=== PATIENT | female | born 1985 | race Caucasian/White ===

== ENCOUNTER 2022-02-19 21:21 | Emergency (ER) | payer OTHER, SELFPAY ==
[2022-02-19 21:22] VITALS: BP 138/77; PULSE 78; RESP 16; TEMP 36.1; O2SAT 98; BMI 28.3
--- NOTE | 2022-02-19 22:37 | EX.ED.DYSGE1 ---
HPI History of Present Illness Chief Complaint: Headache Informant: patient Narrative Narrative: Presents with exacerbation of migraine. She has migraines every single day of her life. She has extensive evaluations for these. She has a neurologist she sees regularly. They have exacerbated since she had an injection for her cervical root about a month ago. She states getting rid of that pain has freed up all the other pains in her neck and head that she now notices more. Patient is on multiple meds at home. She takes Reglan. She just got off 4 days of Toradol. She has Ajovy injections. She is also on Humira. She is on Cymbalta. She is also on baclofen. She states this is her typical migraine. She had her typical visual aura. She describes it as tension across her forehead and then goes down her neck. No neurologic symptoms such as weakness numbness or tingling. No fevers. No trauma. [facility] Medical History (Updated 02/20/22 @ 01:[address] Carlton De Jesus MD) Arthritis Degenerative disc disease Migraine Allergy/AdvReac Type Severity Reaction Status Date / Time fentanyl Allergy Itching Verified 02/19/22 21:24 hydromorphone [From Dilaudid] Allergy Itching Verified 02/19/22 21:24 Sulfa (Sulfonamide Allergy Rash Verified 02/19/22 21:24 Antibiotics) Social History Smoking Status: Never smoker ROS ROS ED Constitutional Constitutional ED: Denies chills or fever(s) Eyes Eyes: Reports other Details: She has had visual changes consistent with her aura. ; Denies blurry vision or diplopia ENT ENT ED: Denies rhinorrhea Cardiovascular Cardiovascular: Denies chest pain Respiratory/Chest Respiratory/Chest: Denies cough or dyspnea Gastrointestinal Gastrointestinal: Reports nausea; Denies abdominal pain, diarrhea or vomiting Genitourinary Genitourinary ED: Denies dysuria Musculoskeletal Musculoskeletal: Reports neck pain; Denies myalgias Integumentary Denies rash Neurologic Neurologic: Reports headache(s); Denies paresthesias or weakness Endocrine Endocrinology: Denies polydipsia or polyuria Allergic/Immunologic Allergic/Immunologic ED: Denies urticaria EXAM Physical Exam Const Vital Signs: 02/19/22 21:22 02/20/22 01:08 Temperature 97 F L Temperature Source Temporal Pulse Rate 78 74 Respiratory Rate 16 17 Blood Pressure 138/77 H 122/74 H Blood Pressure Mean 97 Pulse Ox 98 98 Oxygen Delivery Method Room Air Positive well nourished and well developed General Appearance ED: well developed and NAD HEENT Reports moist mucous membranes Eyes Eyes Narrative: She does have some mild photophobia. Pupils are reactive from about 4 down to 2 mm. General Eye ED: Negative for pale conjunctiva or scleral icterus Neck No no JVD Chest Wall inspection of chest normal Resp normal respiratory effort and clear to auscultation bilaterally Cardio regular rate and regular rhythm GI normal to inspection, nondistended, normoactive bowel sounds and non-tender Palpation: soft Back/Spine no CVA tenderness Neuro CN's II-XII intact bilaterally and no sensory deficits noted Sensorium / Orientation: alert; Negative for orientation impaired, lethargic or stuporous Motor Exam: strength 5/5 throughout; Negative for strength abnormal Psych mental status grossly normal Skin no rashes or lesions noted and no wounds Skin Narrative: No vesicles MDM MDM MDM Narrative Medical decision making narrative: Patient is feeling better after therapy. Hopefully Decadron will help break this cycle for her. She will follow up with her physicians. Discharge Plan Triage Chief Complaint: Headache ED Provider: Carlton De Jesus Dx/Rx/DC Orders Clinical Impression: Headache, migraine Instructions: ED, Migraine (Classical) Primary Care Provider: David Kilgore Referrals: David Kilgore DO [Primary Care Provider] - As soon as possible Disposition Disposition: Home, Self Care Discharge Date/Time: 02/20/22 01:08
[2022-02-19] MEDS: Metoclopramide 10 MG/2 ML Vial IV (22:48)
[2022-02-19] MEDS: 0.9% Normal Saline 1,000 ML 999 ML IV (22:48)
[2022-02-19] MEDS: DiphenhydrAMINE 50 MG/ML Syringe IV (22:48)
[2022-02-19] MEDS: dexAMETHasone 10 MG/ML Vial IV (22:58)
[2022-02-20 01:08] VITALS: BP 122/74; PULSE 74; RESP 17; O2SAT 98
== END 2022-02-20 01:08 | disposition home or self-care (01) ==
PROVIDERS: Emergency Provider Emergency Medicine; PCP Student in an Organized Health Care Education/Training Program; Visit Provider Emergency Medicine
DX: G43.909 Migraine, unspecified, not intractable, without status migrainosus (principal)
CPT/HCPCS: 96361; 96374; 96375; 99283; J7030

== ENCOUNTER 2022-05-18 21:05 | Emergency (ER) | payer OTHER, SELFPAY ==
[2022-05-18 21:05] VITALS: BP 116/56; PULSE 92; RESP 16; TEMP 36.6; O2SAT 98; BMI 29.6
--- NOTE | 2022-05-18 21:15 | EDS_ITS ---
HPI History of Present Illness Chief Complaint: Headache Detail of Chief Complaint: History of migraine headaches. Typical for one of her headaches. 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 Has a history of migraine headaches. States he gets headaches almost daily. This when she has had for the last 4 days. Her home treatment is not making it better. She denies any fall injury or trauma. She is on no blood thinners. She denies any sinus congestion or drainage. She denies any fever. She has associated nausea. When she gets her migraines they have a preceding aura and she gets wavy lines on her vision. She said this is very similar to her prior migraines. She has had brain imaging in the past. There is no history of brain aneurysms or family history of aneurysms nor intracranial bleeds. Prior similar symptoms: Yes Recent Illness/Hospitalization: No PFSH PFSH Medical History Arthritis Degenerative disc disease Migraine Allergy/AdvReac Type Severity Reaction Status Date / Time fentanyl Allergy Itching Verified 02/19/22 21:24 hydromorphone [From Dilaudid] Allergy Itching Verified 02/19/22 21:24 Sulfa (Sulfonamide Allergy Rash Verified 02/19/22 21:24 Antibiotics) Social History Smoking Status: Never smoker ROS ROS ED ROS Narrative Headache, nausea and aura. Review of Systems ROS Unobtainable: Denies due to encephalopathy Constitutional Constitutional ED: Denies chills or fever(s) Eyes Eyes: Reports change in vision ENT ENT ED: Denies ear pain Cardiovascular Cardiovascular: Denies chest pain Respiratory/Chest Respiratory/Chest: Denies cough Gastrointestinal Gastrointestinal: Reports nausea; Denies abdominal pain, constipation or vomiting Genitourinary Genitourinary ED: Denies dysuria or hematuria Musculoskeletal Musculoskeletal: Denies arthralgias Integumentary Denies abscess Neurologic Neurologic: Reports headache(s) Psychiatric Psychiatric: Denies anxiety Endocrine Endocrinology: Denies polydipsia Hematologic/Lymphatic Hematologic/Lymphatic: Denies easy bleeding Allergic/Immunologic Allergic/Immunologic ED: Denies mouth swelling EXAM Physical Exam Narrative Exam Narrative: 36-year-old female. Vital signs stable afebrile. No distress. No photophobia. H EENT exam unremarkable. Pupils round reactive light. Extra motions are intact. Normal speech. No facial droop. No signs of trauma. Neck nontender. No lymphadenopathy. No meningismus. Able to flex chin to chest. Lungs are clear. Heart regular rhythm. Rate of 90. No murmur. Abdomen soft nontender. Moving all 4 extremities. 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 Dorsi plantarflexion intact. Neurologic exam normal. NIH is 0. Fingertip to nose and [id number] within normal limits. Patient has a normal exam. Const Vital Signs: 05/18/22 21:05 Temperature 97.8 F Temperature Source Temporal Pulse Rate 92 Respiratory Rate 16 Blood Pressure 116/56 L Blood Pressure Mean 76 Pulse Ox 98 Oxygen Delivery Method Room Air Positive well nourished and well developed; Negative for cachectic, contractures or unkempt General Appearance ED: well developed; Negative for unkempt, cachectic, contractures or pallor Nutritional Appearance: Negative for cachectic HEENT Reports normocephalic and moist mucous membranes; Denies dry mucous membranes atraumatic; Negative for trauma, tenderness, temporal artery tenderness or vesicular rash Face and Sinus: Negative for sinus tenderness Mouth ED: No dry mucous membranes Mouth: No dry mucous membranes Eyes PERRL and EOMs intact bilaterally General Eye ED: Negative for pale conjunctiva or scleral icterus Neck no lymphadenopathy, supple, no meningeal signs and no JVD Resp normal respiratory effort and clear to auscultation bilaterally Effort and Inspection: Negative for retractions Auscultation: Negative for rales, rhonchi, wheezes or diminished lung sounds Cardio regular rate, regular rhythm, S1 normal heart sound and S2 normal heart sound Rate: Negative for bradycardia or tachycardic Rhythm: Negative for abnormal rhythm GI non-tender and non-distended Auscultation: normoactive bowel sounds; Negative for hyperactive bowel sounds or hypoactive bowel sounds Palpation: soft; Negative for firm, tender, guarding or rigid Back/Spine no CVA tenderness Extremity normal to inspection and full ROM General Extremety ED: Negative for edema or tenderness General Extremity: Negative for edema Neuro oriented x3 and CN's II-XII intact bilaterally Sensorium / Orientation: awake, alert, oriented to person, oriented to place and oriented to time; Negative for orientation impaired, lethargic or stuporous Coordination / Balance: [id number] test normal and [id number] test normal Speech: speech normal Motor Exam: strength 5/5 throughout; Negative for general weakness or strength abnormal Psych mental status grossly normal Appearance: Negative for unkempt Attitude: No agitated Mood & Affect: Negative for depressed, anxious or tearful Skin General Skin Exam: Negative for jaundice or pallor Lesions: no lesions Rashes: no rashes Trauma: Negative for abrasion MDM MDM MDM Narrative Medical decision making narrative: 36-year-old female history of migraines. Similar headache. Not improving at home. No fever. No signs of meningitis. No history of intracranial bleeds or aneurysms nor family history. And has had prior imaging. She will be treated with IV fluids, Toradol, Benadryl, Compazine and Decadron and reassess. Patient's history and exam are consistent with acute migraine headache with a normal neurologic exam. I do not feel any testing or imaging is necessary. Repeat exam patient is doing well at 9:39 PM. Her symptoms are starting to resolve. Her neurologic exam remains normal. She is comfortable to be discharged to home she just wants to go home and sleep. She has her normal migraine medications at home and needs no additional prescriptions. Discharge Plan Triage Chief Complaint: Headache ED Provider: Jd Ladd Dx/Rx/DC Orders Clinical Impression: Headache, migraine Instructions: ED, Migraine (Classical) Primary Care Provider: David Kilgore Referrals: David Kilgore, DO [Primary Care Provider] - 1-2 Days if not improving Activity Restrictions/Additional Instructions: Plenty of fluids and rest. Motrin and Tylenol for pain. Return if not improving or feeling worse. Follow-up with your doctor as needed. Disposition Disposition: Home, Self Care
[2022-05-18] MEDS: dexAMETHasone 10 MG/ML Vial 6 MG IV (21:29)
[2022-05-18] MEDS: Ketorolac 30 MG/ML Syringe IV (21:29)
[2022-05-18] MEDS: proCHLORPERazine 10 MG/2 ML Vial IV (21:29)
[2022-05-18] MEDS: 0.9% Normal Saline 1,000 ML 1000 ML IV (21:29)
[2022-05-18] MEDS: DiphenhydrAMINE 50 MG/ML Syringe 25 MG IV (21:29)
== END 2022-05-18 22:07 | disposition home or self-care (01) ==
PROVIDERS: Emergency Provider Emergency Medicine; PCP Student in an Organized Health Care Education/Training Program; Visit Provider Emergency Medicine
DX: G43.909 Migraine, unspecified, not intractable, without status migrainosus (principal)
CPT/HCPCS: 96361; 96374; 96375; 99282

== ENCOUNTER 2025-09-17 17:26 | Emergency (ER) | payer OTHER, SELFPAY ==
[2025-09-17 17:27] VITALS: BP 122/61; PULSE 108; RESP 16; TEMP 36.8; O2SAT 100; BMI 24.3
--- OUTSIDE RECORDS SUMMARY | 2025-09-17 18:33 | XMS RPT_ITS | CCD ---
Author Organization [facility] Inform ion Partnership [facility] Care Team Providers Care Nurse'S Aides Teacher Name Role Phone David Kilgore DO Primary Care Provider Oscar MACK, [place] Unavailable UnavailLeann Smith MD Unavailable EMRE DE LEON Attending Unavailable EMRE DE LEON Admitting Unavailable DAVID KILGORE Primary Care Unavailable David Kilgore DO Primary Care Provider Oscar MACK, [place] Unavailable UnavailLeann Smith MD Unavailable Oscar MACK, [place] Unavailable UnavailLeann Smith MD Unavailable David Kilgore DO Primary Care Provider Panda BEAUTY CULTURIST.Regine MCGEE Unavailable Jose BEAUTY CULTURIST.Mar MCGEE Unavailable Panda BEAUTY CULTURIST.Regine MCGEE Unavailable JACOBO CHENG Attending Unavailable JACOBO CHENG Admitting Unavailable DAVID KILGORE Primary Care Unavailable Evelin BEAUTY CULTURIST.Maria Isabel MCGEE Unavailable PORTILLO MCCALLUM Attending Unavailable JANIYA ZIEGLER Referring Unavailable DAVID KILGORE Primary Care Unavailable ADELE GIBSON Attending Unavailable DAVID KILGORE Primary Care Unavailable DAVID KILGORE Primary Care Unavailable ADELE GIBSON Attending Unavailable DAVID KILGORE Primary Care Unavailable SUNIL OWEN Attending Unavailable SUNIL OWEN Referring Unavailable DAVID KILGORE Referring Unavailable DAVID KILGORE Primary Care Unavailable AJIT TORRE Attending Unavailable KILGORE, DAVID L Primary Care Unavailable JACOBO CHENG Attending Unavailable KILGORE, DAVID L Primary Care Unavailable DIAN SIERRA L Referring Unavailable KILGORE, DAVID L Primary Care Unavailable SHIN, BEATRIZ Attending Unavailable SHANNON SIERRAEN L Referring Unavailable KILGORE, DAVID L Primary Care Unavailable SHIN, BEATRIZ Attending Unavailable SUNIL OWEN P Attending Unavailable OWEN, SUNIL P Referring Unavailable KILGORE, DAVID L Primary Care Unavailable TORRE, NEOILEY Referring Unavailable KILGORE, DAVID L Primary Care Unavailable TRUNG SALAZAR Attending Unavailable KILGORE, DAVID L Primary Care Unavailable SHINBEATRIZ Attending Unavailable SHIN, BEATRIZ Referring Unavailable KILGORE, DAVID L Primary Care Unavailable TORRE, NEOILEY Referring Unavailable KILGORE, DAVID L Primary Care Unavailable TORRE, SHAILEY Referring Unavailable KILGORE, DAVID L Primary Care Unavailable TORRE, NEOILEY Attending Unavailable KILGORE, DAVID L Primary Care Unavailable KILGORE, DAVID L Primary Care Unavailable KILGORE, DAVID L Primary Care Unavailable KILGORE, DAVID L Referring Unavailable KILGORE, DAVID L Primary Care Unavailable TORRE, NEOILEY Referring Unavailable KILGORE, DAVID L Primary Care Unavailable TORRE, NEOILEY Attending Unavailable KILGORE, DAVID L Primary Care Unavailable KILGORE, DAVID L Primary Care Unavailable SUNIL OWEN P Attending Unavailable KILGORE, DAVID L Referring Unavailable KILGORE, DAVID L Primary Care Unavailable GIBSON, ADELE M Referring Unavailable SHIN, BEATRIZ Attending Unavailable KILGORE, DAVID L Primary Care Unavailable GIBSON, ADELE M Referring Unavailable SHIN, BEATRIZ Attending Unavailable KILGORE, DAVID L Primary Care Unavailable GIBSON, ADELE M Referring Unavailable SHIN, BEATRIZ Attending Unavailable KILGORE, DAVID L Primary Care Unavailable GIBSON, ADELE M Referring Unavailable SHIN, BEATRIZ Attending Unavailable KILGORE, DAVID L Primary Care Unavailable KILGORE, DAVID L Primary Care Unavailable GIBSON, ADELE M Referring Unavailable SHIN, BEATRIZ Attending Unavailable GIBSON, ADELE M Attending Unavailable KILGORE, DAVID L Primary Care Unavailable SHIN, BEATRIZ Referring Unavailable SHIN, BEATRIZ Attending Unavailable KILGORE, DAVID L Primary Care Unavailable KILGORE, DAVID L Referring Unavailable KILGORE, DAVID L Primary Care Unavailable TORRE, SHAILEY Referring Unavailable KILGORE, DAVID L Primary Care Unavailable KILGORE, DAVID L Primary Care Unavailable JANIYA ZIEGLER Attending Unavailable ROXANNA NUNES Referring Unavailable AJIT TORRE Attending Unavailable DAVID KILGORE Primary Care Unavailable DAVID KILGORE Attending Unavailable DAVID KILGORE Primary Care Unavailable Allergies Allergy Classification Reported Allergen(s) Allergy Type Date of Onset Reaction(s) Facility Opioid Agonists (2 sources) HYDROmorphone Drug Allergy 6 Itching [facility] Work Phone: Sulfonamides (antibiotic) (1 source) Sulfonamides (Antibiotic) Drug Allergy 6 Rash [facility] (20 sources) fentaNYL; Translations: [FENTANYL] Drug Allergy 6 Itching [facility] Work Phone: (20 sources) HYDROmorphone; Translations: [HYDROMORPHONE] Drug Allergy 6 Itching [facility] Work Phone: (20 sources) Sulfonamides (Antibiotic); Translations: [SULFA (SULFONAMIDE ANTIBIOTICS)] Allergy to substance 6 Rash [facility] Work Phone: Medications Current Medications Medication Drug Class(es) Dates Sig (Normalized) Sig (Original) acyclovir 400 mg oral tablet (8 sources) Herpesvirus Nucleoside Analog DNA Polymerase Inhibitor, Herpes Simplex Virus Nucleoside Analog DNA Polymerase Inhibitor, Herpes Zoster Virus Nucleoside Analog DNA Polymerase Inhibitor Start: 10-06-2024 End: 11-06-2024 take 1 tablet by mouth twice daily acyclovir (ZOVIRAX) 400 mg tablet Take 1 tablet by mouth two times a day. 60 tablet 3 10/07/2024 11/06/2024 Active 0.4 ml adalimumab 100 mg/ml auto-injector (20 sources) Tumor Necrosis Factor Deb Start: 04-04-2022 End: 06-06-2022 adalimumab (HUMIRA,CF, PEN) 40 mg/0.4 mL pen kit Inject 40 mg (1 pen) subcutaneously every 2 weeks. 2 Each 0 04/04/2022 06/06/2022 Discontinued (Side Effects) Start: 02-04-2022 End: 02-20-2022 adalimumab (HUMIRA,CF, PEN) 40 mg/0.4 mL pen kit Inject 40mg (1 pen) under the skin every 2 weeks. 6 Each 1 02/20/2022 Active Comment on above: Inject 40mg (1 pen) under the skin every 2 weeks. Inject 40 mg (1 pen) subcutaneously every 2 weeks. azithromycin 250 mg oral tablet (2 sources) Macrolide Antimicrobial Start: 02-25-2025 End: 03-02-2025 azithromycin (ZITHROMAX Z-CRYSTAL) 250 mg tablet Take 2 tablets day one, then, 1 tablet daily until gone. 6 tablet 02/25/2025 03/02/2025 Active Start: 02-12-2024 End: 02-19-2024 take 1 tablet by mouth once daily azithromycin (ZITHROMAX) 500 mg tablet Indications: Dehydration, mild , Campylobacter diarrhea Take 1 tablet by mouth once daily for 7 days. 7 tablet 0 02/12/2024 02/19/2024 Active Comment on above: Take 1 tablet by ortiz th once daily for 7 days. 12 hr buPROPion hydrochloride 150 mg extended release oral tablet (20 sources) Aminoketone Start: End: 6 take 1 tablet by mouth twice daily buPROPion SR (WELLBUTRIN SR) 150 mg 12 hr tablet Indications: Unintended weight gain , BMI 30.0-30.9,adult Take 1 tablet by mouth two times a day. 180 tablet 1 04/07/2025 10:28 AM EDT 12/02/2024 12/02/2025 Active Start: 04-01-2023 End: 11-27-2024 take 1 tablet by mouth twice daily buPROPion SR (WELLBUTRIN SR) 150 mg 12 hr tablet Indications: Unintended weight gain , BMI 30.0-30.9,adult Take 1 tablet by mouth two times a day. 180 tablet 3 11/28/2023 Active Comment on above: Take 1 tablet by ortiz th twice daily. Take 1 tablet by ortiz th two times a day. carisoprodol 350 mg oral tablet (20 sources) Muscle Relaxant Start: End: 5 take 1 tablet by mouth every eight hours as needed for muscle spasms and muscle spasms carisoprodol (SOMA) 350 mg tablet Indications: Spasm of muscle Take 1 tablet by mouth three times a day as needed for pain or muscle spasms. 60 tablet 5 03/01/2025 10:38 AM EDT 02/24/2025 05/25/2025 Active Start: 12-30-2024 End: 01-29-2025 take 1 tablet by mouth every eight hours as needed for muscle spasms and muscle spasms carisoprodol (SOMA) 350 mg tablet Indications: Spasm of muscle Take 1 tablet by mouth three times a day as needed for up to 30 days. FOR PAIN OR MUSCLE SPASMS. 60 tablet 5 12/30/2024 01/29/2025 Active chlorzoxazone 500 mg oral tablet (20 sources) Muscle Relaxant Start: 01-09-2023 End: 01-09-2024 take 0.5-1 tablets by mouth three times daily as needed chlorzoxazone (PARAFON FORTE DSC) 500 mg tablet Indications: Temporomandibular joint disorder Take 0.5-1 tablets by mouth three times daily as needed. 90 tablet 5 01/09/2023 01/09/2024 Active Comment on above: Take 0.5-1 tablets b y mouth three times daily as needed. cholecalciferol 5000 unt / folic acid 1 mg oral tablet (20 sources) Vitamin D Start: 03-31-2020 take 1 tablet by mouth once daily vitamin D3-folic acid 5,000 unit- 1 mg tab Take 5,000 Units by mouth once daily. 03/31/2020 Active Comment on above: Take 5,000 Units by mouth once daily. ciprofloxacin 500 mg oral tablet (2 sources) Quinolone Antimicrobial Start: 02-25-2025 End: 03-11-2025 take 1 tablet by mouth twice daily ciprofloxacin HCl (CIPRO) 500 mg tablet Take 1 tablet by mouth two times a day for 14 days. 28 tablet 02/25/2025 03/11/2025 Active clobetasol propionate 0.0005 mg/mg topical ointment (20 sources) Corticosteroid Start: 12-22-2023 End: 03-21-2024 clobetasol (TEMOVATE) 0.05 % ointment Apply 1 application to affected area two times a day. 60 g 2 12/22/2023 Active Comment on above: Apply 1 application to affected area two times a day. dexamethasone phosphate 10 mg/ml injectable solution (1 source) Corticosteroid Start: 10-15-2022 End: 10-15-2022 dexAMETHasone sodium phosphate 10 mg injection (DECADRON) diclofenac potassium 50 mg powder for oral solution (20 sources) Nonsteroidal Anti-inflammatory Drug Start: 10-11-2022 End: 07-21-2025 Diclofenac Potassium (CAMBIA) 50 mg pwpk Take 1 Packet by mouth as needed for migraine headache. Can repeat dose in 2 hours, no more than 2 doses per day, or 2 days per week 18 packet 3 07/21/2025 Active Start: 02-14-2022 End: 08-07-2022 Diclofenac Potassium (CAMBIA ) 50 mg pwpk Take 1 Packet by mouth as needed for migraine headache. Can repeat dose in 2 hours, no more than 2 doses per day, or 2 days per week 18 Packet 3 02/14/2022 08/07/2022 Discontinued Comment on above: Take 1 Packet by ortiz as needed for migraine headache. Can repeat dose in 2 hours, no more than 2 doses per day, or 2 days per week 1 ml dihydroergotamine mesylate 1 mg/ml injection (20 sources) Ergotamine Derivative Start: 04-28-2025 dihydroergotamine (DHE) 1 mg/mL injection Indications: Migraine with aura and without status migrainosus, not intractable Inject 1 mL intramuscular injection at headache onset. May repeat once per hour as needed up to 2 more doses. No more than 3 mL per 24 hours. 12 mL 11 05/13/2025 11:14 AM EDT 04/28/2025 Active Start: 04-06-2025 dihydroergotam ine (DHE) 1 mg/mL injection Indications: Migraine with aura and without status migrainosus, not intractable Give 1 intramuscular injection at headache onset. May repeat once per hour up to 2 more doses. Repeat cycle every 8 hours as needed. Give max allowed. 12 mL 11 04/06/2025 Active doxycycline hyclate 100 mg oral capsule (2 sources) Tetracycline-class Drug Start: 12-29-2023 End: 01-05-2024 take 1 capsule by mouth twice daily doxycycline hyclate (VIBRAMYCIN) 100 mg capsule Indications: DUB (dysfunctional uterine bleeding) Take 1 capsule by mouth two times a day for 7 days. 14 capsule 0 12/29/2023 01/05/2024 Active Comment on above: Take 1 capsule by mouth two times a day for 7 days. Filter [place] 19 x 1 1/2 ndle (17 sources) Start: 04-06-2025 Filter [place] 19 x 1 1/2 ndle Use as directed with DHE. Draw up DHE solution with the filter needle and then switch to smaller needle for injection. 12 each 05/13/2025 11:14 AM EDT 04/06/2025 Active Start: 04-06-2025 Filter [place] 19 x 1 1/2 ndle Use as directed with DHE. Draw up DHE solution with separate filter needle and then switch to smaller needle for injection. 12 each 04/06/2025 Active Filter [place] 5 micron 20 x 1 1/2 ndle (3 sources) Start: 04-06-2025 Filter [place] 5 micron 20 x 1 1/2 ndle Use as directed with DHE. Draw up DHE solution with separate filter needle and then switch to smaller needle for injection. 12 each 04/06/2025 Active fluconazole 150 mg oral tablet (1 source) Azole Antifungal Start: 01-21-2024 End: 01-21-2024 take 1 tablet by mouth once fluconazole (DIFLUCAN) 150 mg tablet Take 1 tablet by mouth one time only for 1 dose. 3 tablet 0 01/21/2024 01/21/2024 Active Comment on above: Take 1 tablet by mouth one time only for 1 dose. 1.5 ml fremanezumab-vfr m 150 mg/ml auto-injector (20 sources) Start: 02-14-2022 End: 01-11-2025 fremanezumab-vfrm (AJOVY AUTOINJECTOR) 225 mg/1.5 mL auto-injector Indications: Chronic migraine without aura, intractable, without status migrainosus Inject 4.5 mL under the skin every 3 months. 4.5 mL 3 04/07/2025 10:28 AM EDT 01/12/2025 Active Comment on above: INJECT 225 MG (1.5ml) UNDER THE SKIN ONC E EVERY MONTH. Inject 4.5 mL subcut aneously every 3 months. Inject 4.5 mL under the skin every 3 months. iv contrast (will be provided with radiology test) (1 source) Start: 12-08-2024 End: 12-09-2024 inject 1 dose intravenously once iv contrast (will be provided with radiology test) MRI Brain Inject, intravenously, once for 1 dose.No IV access, insert saline lock prior to beginning of sedation, infusion, injection of imaging exam.Discontinue saline lock post exam. If Pt. has a central line or IVAD, may access for administration according to line specific nursing protocol.Once exam is complete flush line and de-access according to line specific nursing protocol in the MR contrast administration guidelines link 1 Each 12/08/2024 12/09/2024 Active Lactobac2-Bifido 1-Strep therm. (VSL#3) 112.5 billion cell cap (20 sources) Start: 02-12-2024 take 2 capsules by mouth once daily at bedtime Lactobac2-Bifido1- Strep therm. (VSL#3) 112.5 billion cell cap Indications: Dehydration, mild , Campylobacter diarrhea Take 2 capsules by mouth daily at bedtime. 60 capsule 02/12/2024 Active Start: 02-12-2024 take 2 capsules by m outh once daily at bedtime Hvzorflx5-Szcwiq0-Gvkbi therm. (VSL#3) 112.5 billion cell cap Indications: Dehydration, mild , Campylobacter diarrhea Take 2 capsules by mouth daily at bedtime. 60 capsule 0 02/12/2024 Active Comment on above: Take 2 capsules by m outh daily at bedtime. leflunomide 20 mg oral tablet (20 sources) Antirheumatic Agent Start: End: take 1 tablet by mouth once daily in the morning leflunomide (ARAVA) 20 mg tablet TAKE 1 TABLET BY MOUTH EVERY DAY 90 tablet 04/09/2025 9:54 AM EDT 04/07/2025 10/04/2025 Active Start: 09-22-2023 take 1 tablet by ortiz th once daily leflunomide (ARAVA) 20 mg tablet TAKE 1 TABLET BY MOUTH EVERY DAY 90 tablet 0 09/22/2023 Active Start: 07-29-2023 End: 09-18-2023 take 1 tablet by mouth once daily leflunomide (ARAVA) 20 mg tablet TAKE 1 TABLET BY MOUTH EVERY DAY 90 tablet 0 07/29/2023 09/18/2023 Discontinued Start: 11-14-2022 End: 09-23-2023 take 1 tablet by mouth once daily leflunomide (ARAVA) 10 mg tablet Take 1 tablet by mouth once daily. 90 tablet 02/24/2023 05/20/2023 Discontinued Comment on above: Take 1 tablet by ortiz th once daily. TAKE 1 TABLET BY ORTIZ TH EVERY DAY magnesium citrate (20 sources) Start: 01-10-2021 Magnesium Citr ate 150mg (Pure Encapsulations) Take 4 capsules daily. 01/10/2021 Active Start: 01-10-2021 Magnesium Citr ate 150mg (Pure Encapsulations) Take 4 capsules daily. 0 01/10/2021 Active Comment on above: Take 4 capsules paola y. MegaSporebiotic ([employer]) (20 sources) Start: 06-29-2021 End: 06-06-2022 MegaSporebiotic ([employer]) Take 1 capsule by mouth once daily. Start with 1/2 capsule or 1 full capsule with food and slowly increase to 2 capsules per day using the following protocol. Week 1-1 capsule every other day Week 2-1 capsule daily Week 3-2 capsules daily If 1 capsule every other day is too strong, try starting with 1/2 capsules or even 1/4 capsule in some cases. Possible symptoms may include abdominal cramping, loose stools, and changes in bowel movements. Though these symptoms may be uncomfortable, they are a sign that the product is working! Symptoms should resolve within 2-3 days 0 06/29/2021 06/06/2022 Discontinued Start: 06-29-2021 MegaSporebioti c ([employer]) Take 1 capsule by mouth once daily. Start with 1/2 capsule or 1 full capsule with food and slowly increase to 2 capsules per day using the following protocol. Week 1-1 capsule every other day Week 2-1 capsule daily Week 3-2 capsules daily If 1 capsule every other day is too strong, try starting with 1/2 capsules or even 1/4 capsule in some cases. Possible symptoms may include abdominal cramping, loose stools, and changes in bowel movements. Though these symptoms may be uncomfortable, they are a sign that the product is working! Symptoms should resolve within 2-3 days 0 06/29/2021 Active Comment on above: Take 1 capsule by mo uth once daily. Start with 1/2 capsule or 1 full capsule with food and slowly increase to 2 capsules per day using the following protocol. Week 1-1 capsule every other day Week 2-1 capsule daily Week 3-2 capsules daily If 1 capsule every other day is too strong, try starting with 1/2 capsules or even 1/4 capsule in some cases. Possible symptoms may include abdominal cramping, loose stools, and changes in bowel movements. Though these symptoms may be uncomfortable, they are a sign that the product is working! Symptoms should resolve within 2-3 days methylPREDNISolone (4 sources) Corticosteroid Start: 05-05-2024 End: 05-11-2024 methylPREDNISolone (MEDROL, CRYSTAL,) 4 mg Dose-Pack Take as instructed per package. 21 tablet 0 05/05/2024 05/11/2024 Active Start: 04-27-2024 End: 05-03-2024 methylPREDNISolone (MEDROL, CRYSTAL,) 4 mg Dose-Pack Take as instructed per package. 21 tablet 0 04/27/2024 05/03/2024 Active 2 ml metoclopramide 5 mg/ml injection (2 sources) Dopamine-2 Receptor Antagonist Start: 10-15-2022 End: 10-15-2022 metoclopramide HCl 10 mg injection (REGLAN) Start: 02-15-2022 End: 02-20-2022 take 1 tablet by mouth four times daily metoclopramide HCl (REGLAN) 10 mg tablet Take 1 tablet by mouth four times daily. 30 tablet 1 02/15/2022 02/20/2022 Discontinued Comment on above: Take 1 tablet by ortiz th four times daily. multivitamin tablet (20 sources) take 1 tablet by mouth once daily multivitamin tablet Take 1 tablet by mouth once daily. Active take 1 tablet by mouth once paola y multivitamin tablet Take 1 tablet by mouth once daily. 0 Active Comment on above: Take 1 tablet by ortiz th once daily. nitrofurantoin, macrocrystals 25 mg / nitrofurantoin, monohydrate 75 mg oral capsule (13 sources) Nitrofuran Antibacterial Start: 02-26-20 End: 03-04-20 take 1 capsule by mouth twice daily nitrofurantoin monohydrate and macrocrystal (MACROBID) 100 mg capsule Take 1 capsule by mouth two times a day for 7 days. 14 capsule 02/25/2025 03/04/2025 Active Start: 10-08-2024 End: 10-17-2024 take 1 capsule by mouth twice daily nitrofurantoin monohydrate and macrocrystal (MACROBID) 100 mg capsule Take 1 capsule by mouth two times a day for 7 days. 14 capsule 10/10/2024 10/17/2024 Active Start: 07-07-2024 End: 08-05-2024 take 1 capsule by mouth twice daily nitrofurantoin monohydrate and macrocrystal (MACROBID) 100 mg capsule Take 1 capsule by mouth two times a day for 7 days. 14 capsule 07/07/2024 08/05/2024 Active Start: 01-21-2024 End: 01-31-2024 take 1 capsule by mouth twice daily nitrofurantoin monohydrate and macrocrystal (MACROBID) 100 mg capsule Take 1 capsule by mouth two times a day for 10 days. 20 capsule 0 01/21/2024 01/31/2024 Active Comment on above: Take 1 capsule by mo ut two times a day for 10 days. omeprazole 40 mg delayed release oral capsule (20 sources) Proton Pump Inhibitor Start: End: take 1 capsule by mouth once daily omeprazole (PRILOSEC) 40 mg capsule Take 1 capsule by mouth once daily. 90 capsule 03/16/2025 Active ondansetron 8 mg oral tablet (20 sources) Serotonin-3 Receptor Antagonist Start: take 1 tablet by mouth every eight hours as needed ondansetron (ZOFRAN) 8 mg tablet Take 1 tablet by mouth every 8 hours as needed for nausea/vomiting. 20 tablet 1 02/25/2025 Active Start: 01-21-2024 take 1 tablet by ortiz th every twelve hours as needed ondansetron (ZOFRAN) 4 mg tablet Take 1 tablet by mouth every 12 hours as needed for nausea/vomiting. 30 tablet 01/21/2024 Active Start: 05-23-2021 End: 01-08-2023 take 1 tablet by mouth every eight hours as needed for nausea and nausea ondansetron (ZOFRAN) 4 mg tablet Indications: Nausea Take 1 tablet by mouth every 8 hours as needed for nausea/vomiting. 30 tablet 3 05/23/2021 01/08/2023 Discontinued (Other) Comment on above: Take 1 tablet by ortiz th every 8 hours as needed for nausea/vomiting. Take 1 tablet by ortiz th every 12 hours as needed for nausea/vomiting. phentermine hydrochloride 37.5 mg oral capsule (8 sources) Sympathomimetic Amine Anorectic Start: 05-07-20 End: 06-06-20 take 1 capsule by mouth once daily Phentermine HCl (ADIPEX-P) 37.5 mg capsule Indications: BMI 30.0-30.9,adult Take 1 capsule by mouth once daily for 30 days. 30 capsule 0 05/07/2022 06/06/2022 Active Comment on above: Take 1 capsule by [facility] once daily for 30 days. predniSONE 10 mg oral tablet (20 sources) Start: 12-15-19 End: 05-31-20 predniSONE (DELTASONE) 10 mg tablet Take 3 tablets by mouth daily for 1 week, then 2 tablets daily by mouth for 1 week , then 1 tablet by mouth daily for 1 week, then stop. Please take with food. 42 tablet 05/31/2025 Active Start: 10-08-2024 End: 12-15-2024 predniSONE (DELTASONE) 10 mg tablet Take by mouth with food.Take 30mg(3 tabs)/day x1 week, then 20mg (2 tabs)/day x1 week, then 10mg (1 tab)/day x1 week, then stop 42 tablet 10/08/2024 12/15/2024 Discontinued Start: 05-31-2022 End: 07-18-2022 predniSONE (DELTASONE) 10 mg tablet TAKE BY MOUTH WITH FOOD.TAKE 30MG(3 TABS)/DAY X1 WEEK, THEN 20MG (2 TABS)/DAY X1 WEEK, THEN 10MG (1 TAB)/DAY X1 WEEK, THEN STOP 42 tablet 0 06/27/2022 07/18/2022 Discontinued (Course of therapy completed) Start: 03-06-2022 predniSONE (DE LTASONE) 10 mg tablet Take by mouth with food.Take 30mg(3 tabs)/day x1 week, then 20mg (2 tabs)/day x1 week, then 10mg (1 tab)/day x1 week, then stop 42 tablet 0 03/06/2022 Active Comment on above: Take by mouth with f ood.Take 30mg(3 tabs)/day x1 week, then 20mg (2 tabs)/day x1 week, then 10mg (1 tab)/day x1 week, then stop pregabalin 25 mg oral capsule (20 sources) Start: 05-19-20 End: 06-18-20 take 1 capsule by mouth twice daily as needed pregabalin (LYRICA) 25 mg capsule Indications: Spinal stenosis of cervical region , Radiculopathy, cervical region Take 1 capsule by mouth two times a day as needed for up to 30 days. 60 capsule 05/19/2024 Active progesterone 100 mg oral capsule (20 sources) Progesterone Start: 02-01-20 take 1 capsule by mouth once daily at bedtime progesterone micronized (PROMETRIUM) 100 mg capsule Take 1 capsule by mouth daily at bedtime. 90 capsule 3 04/11/2025 5:04 PM EDT 01/31/2025 Active riboflavin 100 mg oral tablet (20 sources) Start: 03-31-20 take 4 tablets by mouth once daily riboflavin, vitamin B2, (VITAMIN B-2) 100 mg tab Take 4 tablets by mouth once daily. 03/31/2020 Active Comment on above: Take 4 tablets by mo [facility] once daily. rifAXIMin 550 mg oral tablet (20 sources) Rifamycin Antibacterial Start: 05-27-20 End: 07-09-20 take 1 tablet by mouth three times daily rifAXIMin (XIFAXAN) 550 mg tablet Take 1 tablet by mouth three times daily for 28 days. 100 tablet 0 06/11/2022 07/09/2022 Active Comment on above: Take 1 tablet by [facility] three times daily for 28 days. rosuvastatin calcium 5 mg oral tablet (20 sources) HMG-CoA Reductase Inhibitor Start: 10-08-20 take 1 tablet by mouth once daily in the morning rosuvastatin (CRESTOR) 5 mg tablet Indications: Family history of hyperlipidemia , Hyperlipidemia LDL goal , Elevated Lp(a) Take 1 tablet by mouth once daily. 90 tablet 3 04/29/2025 8:22 AM EDT 10/08/2024 Active Start: 07-27-2024 End: 10-06-2024 take 1 tablet by mouth once daily rosuvastatin (CRESTOR) 5 mg tablet Indications: Family history of hyperlipidemia , Hyperlipidemia LDL goal , Elevated Lp(a) Take 1 tablet by mouth once daily. 90 tablet 07/27/2024 10/06/2024 Discontinued Start: 03-23-2024 End: 07-22-2024 take 1 tablet by mouth once daily rosuvastatin (CRESTOR) 5 mg tablet Indications: Family history of hyperlipidemia , Hyperlipidemia LDL goal , Elevated Lp(a) Take 1 tablet by mouth once daily. 30 tablet 07/22/2024 07/22/2024 Discontinued Start: 12-17-2023 End: 03-18-2024 take 1 tablet by mouth once daily rosuvastatin (CRESTOR) 5 mg tablet Indications: Family history of hyperlipidemia , Hyperlipidemia LDL goal , Elevated Lp(a) Take 1 tablet by mouth once daily. 90 tablet 0 12/17/2023 03/18/2024 Discontinued Start: 09-22-2023 take 1 tablet by ortiz th once daily rosuvastatin (CRESTOR) 5 mg tablet Indications: Family history of hyperlipidemia , Hyperlipidemia LDL goal , Elevated Lp(a) Take 1 tablet by mouth once daily. 90 tablet 0 09/22/2023 Active Start: 11-05-2022 End: 09-18-2023 take 1 tablet by mouth once daily rosuvastatin (CRESTOR) 5 mg tablet Indications: Family history of hyperlipidemia , Hyperlipidemia LDL goal , Elevated Lp(a) Take 1 tablet by mouth once daily. 90 tablet 3 11/05/2022 09/18/2023 Discontinued Comment on above: Take 1 tablet by ortiz th once daily. 1 ml secukinumab 150 mg/ml auto-injector (13 sources) Interleukin-17A Antagonist Start: 05-18-2025 secukinumab (COSENTYX PEN) 150 mg/mL Indications: Ankylosing spondylitis of lumbosacral region (HCC) Inject 150mg (1 pen) subcutaneously at weeks 0, 1, 2, 3, and 4 and then every 4 weeks therafter. 4 mL 3 07/27/2025 10:52 AM EDT 05/18/2025 Active Syringe with Needle, Disp, (BD TUBERCULIN SYRINGE) 1 mL 27 x 1/2 (17 sources) Start: 04-06-2025 Syringe with Needle, Disp, (BD TUBERCULIN SYRINGE) 1 mL 27 x 1/2 Use with DHE injections 12 each 11 05/13/2025 11:14 AM EDT 04/06/2025 Active Start: 04-06-2025 Syringe with N eedle, Disp, (BD TUBERCULIN SYRINGE) 1 mL 27 x 1/2 Use with DHE injections 12 each 11 04/06/2025 Active tirzepatide (MOUNJARO) 15 mg/0.5 mL pen injector (20 sources) Start: 08-25-2024 End: 08-25-2025 inject 15 mg by subcutaneous injection every week tirzepatide (MOUNJARO) 15 mg/0.5 mL pen injector Indications: PCOS (polycystic ovarian syndrome) , Impaired fasting glucose , Inflammatory arthritis , History of obesity Inject 15 mg subcutaneously one time a week. 2 mL 11 08/25/2024 08/25/2025 Active ubidecarenone 100 mg oral capsule (20 sources) Start: 03-31-2020 take 1 capsule by mouth twice daily coenzyme Q10 (COQ-10) 100 mg cap capsule Take 1 capsule by mouth twice daily. 03/31/2020 Active Comment on above: Take 1 capsule by mo [facility] twice daily. valACYclovir 1000 mg oral tablet (20 sources) Herpesvirus Nucleoside Analog DNA Polymerase Inhibitor, Herpes Simplex Virus Nucleoside Analog DNA Polymerase Inhibitor, Herpes Zoster Virus Nucleoside Analog DNA Polymerase Inhibitor Start: 10-13-2024 End: 04-05-2025 take 1 tablet by mouth once daily in the morning valACYclovir (VALTREX) 1 gram tablet Take 1 tablet by mouth once daily. 90 tablet 3 01/05/2025 8:01 AM EST 12/10/2024 04/05/2025 Active Start: 05-20-2022 End: 06-17-2024 take 1 tablet by mouth once daily valACYclovir (VALTREX) 1 gram Take 1 tablet by mouth once daily. 90 tablet 3 05/20/2022 04/29/2023 Discontinued Start: 05-20-2022 End: 10-03-2022 take 2 tablets by mouth twice daily valACYclovir (VALTREX) 1 gram Take 2 tablets by mouth twice daily. 20 tablet 2 05/20/2022 10/03/2022 Discontinued (Other) Start: 11-28-2021 End: 04-27-2023 take 1 tablet by mouth once daily valACYclovir (VALTREX) 500 mg tablet Take 1 tablet by mouth once daily. 90 tablet 1 04/27/2022 05/20/2022 Discontinued Comment on above: [facility] Take 2 tablets by mo [facility] twice daily. divalproex sodium 500 mg delayed release oral tablet (20 sources) Mood Stabilizer, Anti-epileptic Agent Start: 02-20-2022 End: 06-06-[address] (DEPAKOTE) 500 mg EC tablet take 2 at bedtime for 5 days then 1 at bedtime for 5 days, then stop. 15 tablet 0 02/20/2022 06/06/2022 Discontinued Comment on above: take 2 at bedtime fo r 5 days then 1 at bedtime for 5 days, then stop. Completed/Discontinued Medications Medication Drug Class(es) Dates Sig (Normalized) Sig (Original) 1 ml abatacept 125 mg/ml auto-injector (20 sources) Selective T Cell Costimulation Modulator Start: 09-01-2024 End: 09-01-2025 inject 125 mg by subcutaneous injection every week abatacept (ORENCIA) 125 mg/mL injection Inject 125mg (1 syringe) subcutaneously once weekly. 12 mL 3 09/01/2024 09/01/2025 Active Start: 09-01-2024 End: 09-01-2025 inject 125 mg by subcutaneous injection every week abatacept (ORENCIA CLICKJECT) 125 mg/mL auto-injector Inject 125mg (1 pen) subcutaneously one time a week. 12 mL 3 05/11/2025 11:41 AM EDT 09/01/2024 05/18/2025 Discontinued acetaminophen 500 mg oral tablet (20 sources) Start: 06-12-2023 End: 09-09-2023 take 500-1000 mg by mouth every eight hours as needed acetaminophen (ACETAMINOPHEN EXTRA STRENGTH) 500 mg tablet Take 1-2 tablets by mouth every 8 hours as needed for pain. 50 tablet 0 06/12/2023 09/09/2023 Discontinued Comment on above: Take 1-2 tablets by mouth every 8 hours as needed for pain. ascorbic acid 500 mg oral tablet (20 sources) Vitamin C Start: 03-31-2020 End: 07-18-2022 take 1 tablet by mouth once daily ascorbic acid, vitamin C, (VITAMIN C) 500 mg tablet Take 1 tablet by mouth once daily. 0 03/31/2020 07/18/2022 Discontinued (Other) Comment on above: Take 1 tablet by [facility] once daily. Atrantil (20 sources) Start: 09-13-2022 End: 06-06-2023 Atrantil One (2) capsule per day up to 3 x's a day with food. 09/13/2022 06/06/2023 Discontinued Start: 09-13-2022 End: 06-06-2023 Atrantil One (2) capsule per day up to 3 x's a day with food. 0 09/13/2022 06/06/2023 Discontinued Start: 09-13-2022 Atrantil One ( 2) capsule per day up to 3 x's a day with food. 0 09/13/2022 Active Comment on above: One (2) capsule per day up to 3 x's a day with food. baclofen 10 mg oral tablet (20 sources) gamma-Aminobutyr ic Acid-ergic Agonist Start: 2 End: 2 take 1 tablet by mouth four times daily baclofen (LIORESAL) 10 mg tablet Indications: Temporomandibular joint disorder Take 1 tablet by mouth four times daily. 360 tablet 3 02/14/2022 07/18/2022 Discontinued Comment on above: Take 1 tablet by [facility] four times daily. Berberine (20 sources) Start: 2 End: 3 take 1 capsule by mouth three times daily Berberine 500 (Lorena) Take 1 capsule by mouth three times daily. 09/13/2022 06/06/2023 Discontinued Start: 09-13-2022 End: 06-06-2023 take 1 capsule by mouth three times daily Berberine 500 (Lorena) Take 1 capsule by mouth three times daily. 0 09/13/2022 06/06/2023 Discontinued Start: 09-13-2022 take 1 capsule by [facility] three times daily Berberine 500 (Lorena) Take 1 capsule by mouth three times daily. 0 09/13/2022 Active Comment on above: Take 1 capsule by mo [facility] three times daily. onabotulinumtoxina 100 unt injection (5 sources) Acetylcholine Release Inhibitor Start: 07-21-2025 End: 07-21-2025 onabotulinum toxin type A 200 Units injection (BOTOX) Start: 07-21-2025 End: 07-21-2025 inject 1 dose by intramuscular injection once 200 Units, INTRAMUSCULAR, ONCE, 1 dose, On Jennifer 07/21/25 at 1100, This record documents the total dose provided to patient. See progress note for specific locations and amounts administered. REFRIGERATE - Pharmaceutical Waste: Lab Pack - Start: 04-06-2025 End: 04-06-2025 onabotulinum toxin type A 20 0 Units injection (BOTOX) Start: 04-06-2025 End: 04-06-2025 inject 1 dose by intramuscular injection once 200 Units, INTRAMUSCULAR, ONCE, 1 dose, On Fri04/06/25 at 1230, This record documents the total dose provided to patient. See progress note for specific locations and amounts administered. REFRIGERATE - Pharmaceutical Waste: Lab Pack - Start: 01-02-2024 End: 01-02-2024 onabotulinum toxin type A 20 0 Units injection (BOTOX) calcium chloride 0.0014 meq/ml / potassium chloride 0.004 meq/ml / sodium chloride 0.103 meq/ml / sodium lactate 0.028 meq/ml injectable solution (1 source) Start: 03-16-2025 End: 03-16-2025 take 30 mL intravenously every hour 30 mL/hr, INTRAVENOUS, CONTINUOUS, Starting on Fri03/16/25 at 0730, Until Fri03/16/25 at 0817, Preprocedure citric acid 0.01 mg/mg / lactic acid 0.018 mg/mg / potassium bitartrate 0.004 mg/mg vaginal gel (20 sources) Calculi Dissolution Agent, Anti-coagulant Start: 08-07-2022 End: 06-06-2023 PHEXXI 1.8-1-0.4 % gel INSERT ONE APPLICATORFUL VAGINALLY IMMEDIATELY OR UP TO ONE HOUR BEFORE EACH EPISODE OF VAGINAL INTERCOURSE 60 g 11 08/07/2022 06/06/2023 Discontinued Comment on above: INSERT ONE APPLICATO RFUL VAGINALLY IMMEDIATELY OR UP TO ONE HOUR BEFORE EACH EPISODE OF VAGINAL INTERCOURSE cyproheptadine hydrochloride 4 mg oral tablet (20 sources) Start: 06-07-2022 End: 11-05-2022 take 1 tablet by mouth three times daily as needed cyproheptadine (PERIACTIN) 4 mg tablet Indications: Chronic migraine without aura, with intractable migraine, so stated, with status migrainosus Take 1 tablet by mouth three times daily as needed. 270 tablet 3 06/07/2022 11/05/2022 Discontinued (Discontinued by Patient) Comment on above: [facility] tablet [facility] daily as needed. dihydroergotamine (TRUDHESA) 0.725 mg/pump act. (4 mg/mL) nasal spray (20 sources) Start: 12-30-2024 End: 04-06-2025 dihydroergotamine (TRUDHESA) 0.725 mg/pump act. (4 mg/mL) nasal spray Prime with 4 pumps before use. 1 spray in each nostril at migraine onset. May repeat once in 1 hour if needed. No more than 2 doses/24 hours and 3 doses/week. A complete dose is 2 sprays: 1 spray in each nostril. 8 mL 12/30/2024 04/06/2025 Discontinued Start: 12-30-2024 dihydroergotam ine (TRUDHESA) 0.725 mg/pump act. (4 mg/mL) nasal spray Prime with 4 pumps before use. 1 spray in each nostril at migraine onset. May repeat once in 1 hour if needed. No more than 2 doses/24 hours and 3 doses/week. A complete dose is 2 sprays: 1 spray in each nostril. 8 mL 11 12/30/2024 Active diphenhydrAMINE (2 sources) Histamine-1 Receptor Antagonist Start: 03-16-2025 End: 03-16-2025 12.5-50 mg, INTRAVENOUS, DIRECTED, Starting on Fri03/16/25 at 0800, Until Fri03/16/25 at 1159, DOSING DIRECTED BY PHYSICIAN FOR PROCEDURAL SEDATION ONLY, Intraprocedure Start: 10-15-2022 End: 10-15-2022 diphenhydrAMINE 25 mg inject ion (BENADRYL) docusate sodium 100 mg oral capsule (20 sources) Start: 06-12-2023 End: 09-09-2023 take 1 capsule by mouth twice daily docusate sodium (COLACE) 100 mg capsule Indications: constipation Take 1 capsule by mouth twice daily. 60 capsule 0 06/12/2023 09/09/2023 Discontinued Comment on above: Take 1 capsule by mo [facility] twice daily. DULoxetine 30 mg delayed release oral capsule (20 sources) Serotonin and Norepinephrine Reuptake Inhibitor Start: 10-11-2022 End: 04-09-2023 take 1 capsule by mouth once daily DULoxetine (CYMBALTA) 30 mg capsule Take 1 capsule by mouth once daily. 90 capsule 3 10/11/2022 03/25/2023 Discontinued Start: 11-28-2021 End: 12-04-2022 take 1 capsule by mouth once daily DULoxetine (CYMBALTA) 60 mg capsule Take 1 capsule by mouth once daily. 90 capsule 3 11/28/2021 10/11/2022 Discontinued Comment on above: Take 1 capsule by [facility] once daily. 1 ml etanercept 50 mg/ml auto-injector (20 sources) Tumor Necrosis Factor Deb Start: End: inject 50 mg by subcutaneous injection every week Etanercept (ENBREL SURECLICK) 50 mg/mL (1 mL) Inject 50mg (1 pen) under the skin one time each week. 12 mL 3 04/02/2022 09/13/2022 Discontinued Comment on above: Inject 50mg (1 pen) under the skin one time each week. 1 ml fentaNYL 0.05 mg/ml injection (1 source) Opioid Agonist Start: 025 End: 25-100 mcg, INTRAVENOUS, DIRECTED, Starting on Fri03/16/25 at 0800, Until Fri03/16/25 at 1159, DOSING DIRECTED BY PHYSICIAN FOR PROCEDURAL SEDATION ONLY, Intraprocedure 0.5 ml golimumab 100 mg/ml auto-injector (20 sources) Tumor Necrosis Factor Deb Start: 023 End: golimumab (SIMPONI) 50 mg/0.5 mL Inject 50mg ( 1 pen) subcutaneously every 4 weeks 1.5 mL 5 05/10/2024 09/01/2024 Discontinued Comment on above: Inject one pen every 4 weeks. Please dispense Smartject-Auto Injector Inject 50mg ( 1 pen) subcutaneously every 4 weeks Inositol (20 sources) Start: End: 023 inositol powder 2 scoops, 3 times daily with or between meals 09/13/2022 06/06/2023 Discontinued Start: 09-13-2022 End: 06-06-2023 inositol powder 2 scoops, 3 times daily with or between meals 0 09/13/2022 06/06/2023 Discontinued Start: 09-13-2022 inositol powde r 2 scoops, 3 times daily with or between meals 0 09/13/2022 Active Comment on above: 2 scoops, 3 times da kwame with or between meals lasmiditan 100 mg oral tablet (20 sources) Start: 07-18-2022 End: 01-14-2023 take 1 tablet by mouth once daily as needed lasmiditan (REYVOW) 100 mg tablet Indications: Chronic migraine without aura, with intractable migraine, so stated, with status migrainosus Take 1 tablet by mouth once daily as needed 8 tablet 5 07/18/2022 01/14/2023 Comment on above: Take 1 tablet by [facility] once daily as needed Melatonin-SR (Klaire/Prothera) (20 sources) Start: 04-04-2021 End: 07-18-2022 Melatonin-SR (Klaire/Prothera) Take 1 capsule one hour before bedtime 0 04/04/2021 07/18/2022 Discontinued (Other) Start: 04-04-2021 Melatonin-SR ( Klaire/Prothera) Take 1 capsule one hour before bedtime 0 04/04/2021 Active Comment on above: Take 1 capsule one h our before bedtime Meriva-SF (Lorena) (20 sources) Start: 01-10-2021 End: 07-18-2022 take 2 capsules by mouth twice daily Meriva-SF (Lorena) Take 2 capsules by mouth twice daily. 0 01/10/2021 07/18/2022 Discontinued (Other) Start: 01-10-2021 take 2 capsules by m outh twice daily Meriva-SF (Lorena) Take 2 capsules by mouth twice daily. 0 01/10/2021 Active Comment on above: Take 2 capsules by m outh twice daily. metaxalone 800 mg oral tablet (19 sources) Start: 06-12-20 End: 09-23-20 take 1 tablet by mouth three times daily for pain metaxalone (SKELAXIN) 800 mg tablet Take 1 tablet by mouth three times daily. for pain or muscle spasms. 270 tablet 0 06/25/2023 07/22/2023 Discontinued Comment on above: Take 1 tablet by [facility] three times daily as needed for pain (or muscle spasms). Take 1 tablet by [facility] three times daily. for pain or muscle spasms. methocarbamol 750 mg oral tablet (20 sources) Muscle Relaxant Start: 05-01-20 End: 12-30-19 take 1 tablet by mouth four times daily methocarbamol (ROBAXIN) 750 mg tablet Indications: Chronic migraine without aura, intractable, without status migrainosus , Temporomandibular joint disorder , Cervicalgia , Chronic migraine without aura, with intractable migraine, so stated, with status migrainosus Take 1 tablet by mouth four times daily. 360 tablet 3 07/23/2024 12/30/2024 Discontinued Start: 07-18-2022 End: 01-09-2023 take 1 tablet by mouth four times daily methocarbamol (ROBAXIN) 750 mg tablet Indications: Temporomandibular joint disorder , Cervicalgia , Chronic migraine without aura, with intractable migraine, so stated, with status migrainosus Take 1 tablet by mouth four times daily. 120 tablet 5 07/18/2022 10/03/2022 Discontinued Comment on above: Take 1 tablet by ortiz four times daily. 24 hr metoprolol succinate 25 mg extended release oral tablet (20 sources) beta-Adrenergic Deb Start: End: take 1 tablet by mouth once daily at bedtime metoprolol succinate ER (TOPROL XL) 25 mg 24 hr tablet Indications: Chronic migraine without aura, intractable, without status migrainosus Take 1 tablet by mouth daily at bedtime. 90 tablet 3 12/25/2023 12/30/2024 Discontinued Comment on above: Take 1 tablet by [facility] daily at bedtime. 5 ml midazolam 1 mg/ml injection (1 source) Benzodiazepine Start: 025 End: 025 1-5 mg, INTRAVENOUS, DIRECTED, Starting on Fri03/16/25 at 0800, Until Fri03/16/25 at 1159, DOSING DIRECTED BY PHYSICIAN FOR PROCEDURAL SEDATION ONLY, Intraprocedure MOUNJARO 5 mg/0.5 mL pen injector (17 sources) Start: 022 End: 023 inject 5 mg by subcutaneous injection every week MOUNJARO 5 mg/0.5 mL pen injector INJECT 5 MG SUBCUTANEOUSLY WEEKLY 3 mL 5 11/26/2022 02/19/2023 Discontinued Start: 11-26-2022 inject 5 mg by subcu taneous injection every week MOUNJARO 5 mg/0.5 mL pen injector INJECT 5 MG SUBCUTANEOUSLY WEEKLY 3 mL 5 11/26/2022 Active Comment on above: INJECT 5 MG SUBCUTAN EOUSLY WEEKLY NAC 600mg 90 ct. (Pure Encapsulations) (20 sources) Start: 09-13-2022 End: 06-06-2023 [address] (Pure Encapsulations) Take 1 capsule twice daily, between meals. 09/13/2022 06/06/2023 Discontinued Start: 09-13-2022 End: 06-06-20[address] (Pure Encap sulations) Take 1 capsule twice daily, between meals. 0 09/13/2022 06/06/2023 Discontinued Start: 09-13-2022 NAC 600mg 90 c t. (Pure Encapsulations) Take 1 capsule twice daily, between meals. 0 09/13/2022 Active Comment on above: Take 1 capsule twice daily, between meals. Naltrexone (20 sources) Opioid Antagonist Start: 11-19-2022 End: 06-06-2023 take 1 capsule by mouth once daily naltrexone capsule 5 mg (CPD) Take 1 capsule by mouth once daily. 90 capsule 2 11/19/2022 06/06/2023 Discontinued Start: 11-19-2022 take 1 capsule by mo [facility] once daily naltrexone capsule 5 mg (CPD) Take 1 capsule by mouth once daily. 90 capsule 2 11/19/2022 Active Start: 11-19-2022 take 1 capsule by mo [facility] once daily naltrexone 5 mg capsule (CPD) Take 1 capsule by mouth once daily. 90 capsule 2 11/19/2022 Active Comment on above: Take 1 capsule by mo [facility] once daily. naproxen 500 mg oral tablet (15 sources) Nonsteroidal Anti-inflammatory Drug Start: 023 End: 023 take 1 tablet by mouth twice daily at mealtime naproxen (NAPROSYN) 500 mg tablet Take 1 tablet by mouth twice daily with meals for 21 days. 42 tablet 0 06/12/2023 07/03/2023 Comment on above: Take 1 tablet by or[facility]iz twice daily with meals for 21 days. nystatin [id number] unt oral tablet (20 sources) Polyene Antifungal Start: End: take 2 tablets by mouth twice daily nystatin (MYCOSTATIN, NILSTAT) 500,000 unit tab Take 2 tablets by mouth twice daily. 120 tablet 2 09/13/2022 06/06/2023 Discontinued Comment on above: Take 2 tablets by mo [facility] twice daily. oxyCODONE hydrochloride 5 mg oral tablet (20 sources) Opioid Agonist Start: End: oxyCODONE IR (ROXICODONE) 5 mg immediate release tablet Indications: pain Take 1 tablet every 6 to 8 hours as needed for severe pain 12 tablet 0 06/12/2023 09/09/2023 Discontinued Comment on above: Take 1 tablet every 6 to 8 hours as needed for severe pain perflutren lipid microspheres 1.3 mL in NaCl (PF) 0.9% 10 mL injection (DEFINITY) (20 sources) Start: End: perflutren lipid microspheres 1.3 mL in NaCl (PF) 0.9% 10 mL injection (DEFINITY) phenazopyridine hydrochloride 200 mg oral tablet (20 sources) Start: End: take 1 tablet by mouth every eight hours as needed phenazopyridine (PYRIDIUM) 200 mg tablet Take 1 tablet by mouth three times a day as needed (for UTI symptoms). 18 tablet 1 10/10/2024 01/12/2025 Discontinued Start: 01-21-2024 End: 01-28-2024 take 1 tablet by mouth every eight hours as needed phenazopyridine (PYRIDIUM) 200 mg tablet Take 1 tablet by mouth three times a day as needed for up to 7 days. 21 tablet 0 01/21/2024 01/28/2024 Active Comment on above: Take 1 tablet by [facility] three times a day as needed for up to 7 days. Quercetin (20 sources) Start: 01-10-2021 End: 07-18-[address] (Pure Encapsulations) Take 2 capsules twice daily between meals. 0 01/10/2021 07/18/2022 Discontinued (Other) Start: 01-10-[address] (Pure Encapsulations) Take 2 capsules twice daily between meals. 0 01/10/2021 Active Comment on above: Take 2 capsules twic e daily between meals. rimegepant 75 mg disintegrating oral tablet (19 sources) Start: 2021 End: 2021 take 1 tablet by mouth once daily as needed rimegepant (NURTEC ODT) 75 mg disintegrating tablet Indications: migraine Take 1 tablet by mouth once daily as needed. Limit to 8 days a month 8 tablet 5 06/07/2022 07/18/2022 Discontinued Comment on above: Take 1 tablet by ortiz th once daily as needed. Limit to 8 days a month 0.25 mg, 0.5 mg dose 1.5 ml semaglutide 1.34 mg/ml pen injector (8 sources) Start: 2021 End: 2022 inject 0.25 mg by subcutaneous injection every week, then inject 0.5 mg by subcutaneous injection every week semaglutide (OZEMPIC) 0.25 mg or 0.5 mg(2 mg/1.5 mL) pen Indications: Abnormal weight gain Inject 0.25 mg subcutaneously one time a week for 28 days, THEN 0.5 mg one time a week. 20 mL 0 10/05/2022 10/16/2022 Discontinued Comment on above: Inject 0.25 mg subcu taneously one time a week for 28 days, THEN 0.5 mg one time a week. semaglutide, weight loss, (WEGOVY) 0.25 mg/0.5 mL pen injector (1 source) Start: 2021 End: 2021 inject 0.5 mL by subcutaneous injection every week semaglutide, weight loss, (WEGOVY) 0.25 mg/0.5 mL pen injector Inject 0.5 mL subcutaneously one time a week for 28 days. 2 mL 5 10/23/2022 10/23/2022 Discontinued (Cost of medication) Comment on above: Inject 0.5 mL subcut aneously one time a week for 28 days. 125 ml sodium chloride 9 mg/ml prefilled syringe (20 sources) Start: 2020 End: 2021 sodium chloride 0.9 % (flush) 10 mL (BD POSIFLUSH) tirzepatide (MOUNJARO) 10 mg/0.5 mL pen injector (20 sources) Start: 2022 End: 2023 tirzepatide (MOUNJARO) 10 mg/0.5 mL pen injector Indications: PCOS (polycystic ovarian syndrome) , Hyperlipidemia, unspecified hyperlipidemia type , Impaired fasting glucose , Class 1 obesity with serious comorbidity and body mass index (BMI) of 32.0 to 32.9 in adult, unspecified obesity type Inject 10 mg subcutaneously one time a week. 2 mL 2 06/26/2023 08/25/2024 Discontinued Start: 06-26-2023 tirzepatide (M OUNJARO) 10 mg/0.5 mL pen injector Indications: PCOS (polycystic ovarian syndrome) , Hyperlipidemia, unspecified hyperlipidemia type , Impaired fasting glucose , Class 1 obesity with serious comorbidity and body mass index (BMI) of 32.0 to 32.9 in adult, unspecified obesity type Inject 10 mg subcutaneously one time a week. 2 mL 2 06/26/2023 Active Start: 06-26-2023 End: 12-23-2023 tirzepatide (MOUNJARO) 10 mg /0.5 mL pen injector Indications: PCOS (polycystic ovarian syndrome) , Hyperlipidemia, unspecified hyperlipidemia type , Impaired fasting glucose , Class 1 obesity with serious comorbidity and body mass index (BMI) of 32.0 to 32.9 in adult, unspecified obesity type Inject 10 mg subcutaneously one time a week. 2 mL 2 06/26/2023 12/23/2023 Active Comment on above: Inject 10 mg subcuta neously one time a week. tirzepatide (MOUNJARO) 2.5 mg/0.5 mL pen injector (15 sources) Start: End: inject 2.5 mg by subcutaneous injection every week tirzepatide (MOUNJARO) 2.5 mg/0.5 mL pen injector Inject 2.5 mg under the skin one time a week. 2 mL 5 10/23/2022 11/21/2022 Discontinued (Course of therapy completed) Start: 10-23-2022 End: 11-22-2022 inject 2.5 mg by subcutaneous injection every week tirzepatide (MOUNJARO) 2.5 mg/0.5 mL pen injector Inject 2.5 mg under the skin one time a week. 2 mL 5 10/23/2022 11/22/2022 Active Start: 10-10-2022 End: 10-16-2022 inject 2.5 mg by subcutaneous injection every week tirzepatide (MOUNJARO) 2.5 mg/0.5 mL pen injector Inject 2.5 mg subcutaneously one time a week. Patient to contact Dr. Dai after 4 weeks for possible dose change. 2 mL 1 10/10/2022 10/16/2022 Discontinued Start: 10-10-2022 inject 2.5 mg by sub cutaneous injection every week tirzepatide (MOUNJARO) 2.5 mg/0.5 mL pen injector Inject 2.5 mg subcutaneously one time a week. Patient to contact Dr. Dai after 4 weeks for possible dose change. 2 mL 1 10/10/2022 Active Comment on above: Inject 2.5 mg subcut aneously one time a week. Patient to contact Dr. Dai after 4 weeks for possible dose change. Inject 2.5 mg under the skin one time a week. tirzepatide (MOUNJARO) 5 mg/0.5 mL pen injector (3 sources) Start: 022 End: inject 5 mg by subcutaneous injection every week tirzepatide (MOUNJARO) 5 mg/0.5 mL pen injector Inject 5 mg subcutaneously one time a week. 2 mL 3 11/21/2022 11/26/2022 Discontinued Comment on above: Inject 5 mg subcutan eously one time a week. tirzepatide (MOUNJARO) 5 mg/0.5 mL pen injector (15 sources) Start: 023 End: 023 inject 5 mg by subcutaneous injection every week tirzepatide (MOUNJARO) 5 mg/0.5 mL pen injector Inject 5 mg subcutaneously one time a week. 3 mL 5 02/19/2023 06/06/2023 Discontinued Start: 02-19-2023 inject 5 mg by subcu taneous injection every week tirzepatide (MOUNJARO) 5 mg/0.5 mL pen injector Inject 5 mg subcutaneously one time a week. 3 mL 5 02/19/2023 Active Start: 02-19-2023 End: 03-21-2023 inject 5 mg by subcutaneous injection every week tirzepatide (MOUNJARO) 5 mg/0.5 mL pen injector Inject 5 mg subcutaneously one time a week. 3 mL 5 02/19/2023 03/21/2023 Active Comment on above: Inject 5 mg subcutan eously one time a week. tirzepatide (MOUNJARO) 7.5 mg/0.5 mL pen injector (20 sources) Start: End: inject 7.5 mg by subcutaneous injection every week tirzepatide (MOUNJARO) 7.5 mg/0.5 mL pen injector Indications: Unintended weight gain , BMI 30.0-30.9,adult Inject 7.5 mg subcutaneously one time a week. 2 mL 2 04/29/2023 06/26/2023 Discontinued Start: 04-29-2023 inject 7.5 mg by sub cutaneous injection every week tirzepatide (MOUNJARO) 7.5 mg/0.5 mL pen injector Indications: Unintended weight gain , BMI 30.0-30.9,adult Inject 7.5 mg subcutaneously one time a week. 2 mL 2 04/29/2023 Active Start: 04-29-2023 End: 05-29-2023 inject 7.5 mg by subcutaneous injection every week tirzepatide (MOUNJARO) 7.5 mg/0.5 mL pen injector Indications: Unintended weight gain , BMI 30.0-30.9,adult Inject 7.5 mg subcutaneously one time a week. 2 mL 2 04/29/2023 05/29/2023 Active Start: 04-01-2023 End: 05-01-2023 inject 7.5 mg by subcutaneous injection every week tirzepatide (MOUNJARO) 7.5 mg/0.5 mL pen injector Indications: Unintended weight gain , BMI 30.0-30.9,adult Inject 7.5 mg subcutaneously one time a week. 2 mL 0 04/01/2023 05/01/2023 Active Comment on above: Inject 7.5 mg subcut aneously one time a week. tiZANidine 2 mg oral capsule (20 sources) Central alpha-2 Adrenergic Agonist Start: 07-22-20 End: 01-02-20 24 take 1 capsule by mouth every eight hours as needed tiZANidine HCl (ZANAFLEX) 2 mg capsule Take 1 capsule by mouth three times daily as needed. 60 capsule 3 07/22/2023 01/02/2024 Discontinued Comment on above: Take 1 capsule by mo [facility] three times daily as needed. ubrogepant 100 mg oral tablet (20 sources) Start: 07-22-20 End: 12-30-19 take 1 tablet by mouth every two hours as needed ubrogepant (UBRELVY) 100 mg tablet Take 1 tablet by mouth at migraine onset. May repeat once in 2 hours as needed. 16 tablet 11 07/22/2023 12/30/2024 Discontinued Comment on above: [facility] May repeat once in 2 hours as needed. Problems Active Problems Problem Classification Problem Date Documented Da te Episodic/Chronic Abdominal pain (1 source) Pain in female pelvis; Translations: [Pelvic and perineal pain] 03-01-2024 Episodic Adjustment disorders (1 source) Adjustment disorder with anxious mood; Translations: [Adjustment disorder with anxiety] Chronic Blindness and vision defects (2 sources) Bilateral regular astigmatism; Translations: [Regular astigmatism, bilateral] Episodic Cardiac dysrhythmias (20 sources) Multiple premature ventricular complexes; Translations: [Ventricular premature depolarization] Onset: 3 06-06-2023 Chronic Disorders of lipid metabolism (20 sources) Hyperlipidemia; Translations: [Hyperlipidemia, unspecified] Onset: 2 Chronic Esophageal disorders (8 sources) Gastroesophageal reflux disease; Translations: [Gastro-esophageal reflux disease without esophagitis] Onset: 5 12-28-2024 Chronic Genitourinary symptoms and ill-defined conditions (6 sources) Dysuria; Translations: [Dysuria] 07-07-2024 Episodic Headache; including migraine (20 sources) Migraine; Translations: [Migraine, unspecified, not intractable, without status migrainosus] Onset: 1 03-22-2021 Chronic Headache; including migraine (1 source) Headache; including migraine; Translations: [Chronic daily headache] Onset: 5 Immunizations and screening for infectious disease (2 sources) Raised Helicobacter pylori antibody; Translations: [Other specified abnormal immunological findings in serum] 02-04-2025 Episodic Malaise and fatigue (5 sources) Malaise and fatigue; Translations: [Other malaise] Onset: 5 Episodic Miscellaneous mental health disorders (1 source) Feeling unhappy; Translations: [Other symptoms and signs involving emotional state] 01-31-2025 Episodic Mood disorders (1 source) Mood swings; Translations: [Emotional lability] 01-31-2025 Episodic Nutritional deficiencies (20 sources) Vitamin D deficiency; Translations: [Vitamin D deficiency, unspecified] Onset: 3 06-26-2023 Chronic Nutritional deficiencies (1 source) Deficiency of multiple nutrient elements; Translations: [Deficiency of multiple nutrient elements] Episodic Osteoarthritis (20 sources) Arthritis; Translations: [Unspecified osteoarthritis, unspecified site] Onset: 1 Chronic Other aftercare (11 sources) Long-term current use of immunosuppressive drug; Translations: [Other buttermaker (current) drug therapy] Episodic Other aftercare (9 sources) Patient encounter status; Translations: [Other correction (current) drug therapy] Episodic Other bone disease and musculoskeletal deformities (6 sources) Disorder of bone; Translations: [Disorder of bone, unspecified] 03-15-2025 Episodic Other connective tissue disease (1 source) Muscle pain; Translations: [Myalgia, unspecified site] Episodic Other connective tissue disease (3 sources) Myofascial pain syndrome of neck; Translations: [Myalgia, other site] 10-06-2024 Episodic Other connective tissue disease (1 source) Pain in right lower limb; Translations: [Pain in right leg] 02-11-2025 Episodic Other connective tissue disease (1 source) Personal history of other diseases of the musculoskeletal system and connective tissue; Translations: [H/O chronic inflammatory arthritis] Onset: 5 Episodic Other connective tissue disease (1 source) Myalgia, other site; Translations: [Cervical myofascial pain syndrome] Onset: 5 Episodic Other endocrine disorders (20 sources) Polycystic ovary syndrome; Translations: [Polycystic ovarian syndrome] Onset: 2 Chronic Other endocrine disorders (1 source) Polycystic ovarian syndrome; Translations: [PCOS (polycystic ovarian syndrome)] Onset: 2 Chronic Other eye disorders (2 sources) Disorder of lacrimal gland; Translations: [Dry eye syndrome of bilateral lacrimal glands] Episodic Other female genital disorders (1 source) Premenstrual tension syndrome; Translations: [Premenstrual tension syndrome] 01-31-2025 Chronic Other gastrointestinal disorders (1 source) Small bowel bacterial overgrowth syndrome; Translations: [Other specified diseases of intestine] Episodic Other gastrointestinal disorders (2 sources) Abdominal bloating; Translations: [Abdominal distension (gaseous)] Episodic Other gastrointestinal disorders (1 source) Constipation; Translations: [Constipation, unspecified] Episodic Other gastrointestinal disorders (1 source) Diarrhea of presumed infectious origin; Translations: [Diarrhea, unspecified] 02-11-2024 Episodic Other gastrointestinal disorders (1 source) Dysphagia; Translations: [Dysphagia, unspecified] 02-04-2025 Episodic Other nervous system disorders (20 sources) Metabolic encephalopathy; Translations: [Metabolic encephalopathy] Onset: 1 03-22-2021 Chronic Other nervous system disorders (1 source) Other chronic pain; Translations: [Chronic midline low back pain without sciatica] Onset: 5 Chronic Other nervous system disorders (3 sources) Paresthesia of right upper limb; Translations: [Paresthesia of skin] Episodic Other nervous system disorders (3 sources) Paresthesia of hand ; Translations: [Anesthesia of skin] Episodic Other nervous system disorders (1 source) Other acute postprocedural pain; Translations: [Acute post-operative pain] Onset: 3 Episodic Other nervous system disorders (4 sources) Paresthesia of lower extremity; Translations: [Anesthesia of skin] 12-08-2024 Episodic Other nervous system disorders (6 sources) Paresthesia of skin; Translations: [Disturbance of skin sensation] Onset: 5 12-08-2024 Episodic Other nervous system disorders (1 source) Word finding difficulty ; Translations: [Other speech disturbances] 12-08-2024 Episodic Other nervous system disorders (1 source) Paresthesia; Translations: [Paresthesia of skin] 02-11-2025 Episodic Other nervous system disorders (1 source) Unspecified disturbances of skin sensation; Translations: [Disturbance of skin sensation] Onset: 5 Episodic Other non-traumatic joint disorders (1 source) Other specified arthritis, unspecified site; Translations: [Inflammatory arthritis] Onset: 1 Chronic Other non-traumatic joint disorders (9 sources) Multiple joint pain; Translations: [Pain in unspecified joint] Episodic Other non-traumatic joint disorders (2 sources) Pain in right hip joint; Translations: [Pain in right hip] Episodic Other non-traumatic joint disorders (4 sources) Hip pain; Translations: [Pain in unspecified hip] Episodic Other nutritional; endocrine; and metabolic disorders (2 sources) Insulin resistance; Translations: [Metabolic syndrome] Chronic Other nutritional; endocrine; and metabolic disorders (1 source) Obesity; Translations: [Obesity, unspecified] 06-26-2023 Chronic Other nutritional; endocrine; and metabolic disorders (6 sources) Unintentional weight gain; Translations: [Abnormal weight gain] Episodic Other nutritional; endocrine; and metabolic disorders (1 source) Abnormal weight gain; Translations: [Abnormal weight gain] Episodic Other nutritional; endocrine; and metabolic disorders (1 source) H/O: obesity; Translations: [Personal history of other endocrine, nutritional and metabolic disease] 08-25-2024 Episodic Other nutritional; endocrine; and metabolic disorders (1 source) Personal history of other endocrine, nutritional and metabolic disease; Translations: [History of vitamin D deficiency] Onset: 5 Episodic Other skin disorders (20 sources) Lichen sclerosus et atrophicus; Translations: [Circumscribed scleroderma] Onset: 0 06-06-2023 Chronic Other skin disorders (1 source) Loss of hair; Translations: [Nonscarring hair loss, unspecified] 06-26-2023 Episodic Residual codes; unclassified (1 source) Hypersomnia; Translations: [Hypersomnia, unspecified] 12-08-2024 Chronic Residual codes; unclassified (1 source) Hypersomnia, unspecified; Translations: [Hypersomnolence] Onset: 5 Chronic Residual codes; unclassified (9 sources) Family history of hyperlipidemia; Translations: [Family history of other disorder of lipoprotein metabolism and other lipidemia] Episodic Residual codes; unclassified (2 sources) Flushing; Translations: [Flushing] Episodic Residual codes; unclassified (1 source) Other specified postprocedural states; Translations: [S/P hip arthroscopy] Onset: 3 Episodic Residual codes; unclassified (1 source) Other specified health status; Translations: [Other drug allergy] 07-25-2023 Episodic Residual codes; unclassified (1 source) Poor short-term memory ; Translations: [Other amnesia] 12-08-2024 Episodic Residual codes; unclassified (1 source) Other amnesia; Translations: [Memory difficulties] Onset: 5 Episodic Rheumatoid arthritis and related disease (17 sources) Seronegative rheumatoid arthritis; Translations: [Rheumatoid arthritis without rheumatoid factor, unspecified site] Onset: 5 05-10-2024 Chronic Spondylosis; intervertebral disc disorders; other back problems (2 sources) Thoracic spondylosis with radiculopathy; Translations: [Other spondylosis with radiculopathy, thoracic region] Chronic Spondylosis; intervertebral disc disorders; other back problems (20 sources) Chronic neck pain; Translations: [Cervicalgia] Onset: 9 01-13-2020 Episodic Sprains and strains (7 sources) Acetabular labrum tear; Translations: [Other sprain of right hip, subsequent encounter] Onset: 3 Episodic Unclassified (1 source) Paresthesia of both hands 02-21-2025 Unclassified (2 sources) NO SHOW 07-04-2025 Unclassified (1 source) Chronic midline low back pain without sciatica; Translations: [Chronic midline low back pain without sciatica] Onset: 5 Unclassified (1 source) Long-term use of immunosuppressant medication; Translations: [Long-term use of immunosuppressant medication] Onset: 5 Unclassified (1 source) Botox Injection Onset: 5 Unclassified (1 source) Low back pain, unspecified back pain laterality, unspecified chronicity, unspecified whether sciatica present; Translations: [Low back pain, unspecified back pain laterality, unspecified chronicity, unspecified whether sciatica present] Onset: 5 Unclassified (1 source) Worsening headaches; Translations: [Worsening headaches] Onset: Past or Other Problems Problem Classification Problem Date Documented Da te Episodic/Chronic Diabetes mellitus without complication (20 sources) Impaired fasting glycemia; Translations: [Impaired fasting glucose] Onset: 10-05-2022 Episodic Disorders of teeth and jaw (20 sources) Centric occlusion maximum intercuspation discrepancy; Translations: [Centric occlusion maximum intercuspation discrepancy] Onset: 01-10-2021 01-10-2021 Episodic Fluid and electrolyte disorders (20 sources) Hyponatremia; Translations: [Hypo-osmolality and hyponatremia] Onset: 03-21-2021 03-22-2021 Episodic Headache; including migraine (20 sources) Headache; Translations: [Worsening headaches] Onset: 12-30-2024 12-08-2024 Episodic Nonspecific chest pain (2 sources) Chest pain; Translations: [Chest pain, unspecified] Onset: 01-06-2025 12-08-2024 Episodic Other bone disease and musculoskeletal deformities (20 sources) Somatic dysfunction of rib; Translations: [Segmental and somatic dysfunction of rib cage] Onset: 04-23-2021 04-23-2021 Episodic Other bone disease and musculoskeletal deformities (20 sources) Somatic dysfunction of thoracic region; Translations: [Segmental and somatic dysfunction of thoracic region] Onset: 04-23-2021 04-23-2021 Episodic Other bone disease and musculoskeletal deformities (20 sources) Cervical somatic dysfunction; Translations: [Segmental and somatic dysfunction of cervical region] Onset: 04-23-2021 04-23-2021 Episodic Other bone disease and musculoskeletal deformities (1 source) Disorder of bone, unspecified; Translations: [Disorder of bone] Onset: 05-02-2025 Episodic Other connective tissue disease (20 sources) Myofascial pain; Translations: [Myalgia, other site] Onset: 01-10-2021 01-10-2021 Episodic Other connective tissue disease (20 sources) Spasm; Translations: [Other muscle spasm] Onset: 12-30-2024 12-30-2024 Episodic Other gastrointestinal disorders (20 sources) Clenching teeth; Translations: [Other specified symptoms and signs involving the digestive system and abdomen] Onset: 01-10-2021 01-10-2021 Episodic Other nervous system disorders (20 sources) Numbness of upper limb; Translations: [Anesthesia of skin] Onset: 01-13-2020 01-13-2020 Episodic Other nervous system disorders (20 sources) Acute postoperative pain; Translations: [Other acute postprocedural pain] Onset: 06-12-2023 06-12-2023 Episodic Other nervous system disorders (1 source) Anesthesia of skin; Translations: [Numbness and tingling of both legs] Onset: 02-11-2025 Episodic Other nervous system disorders (1 source) Other speech disturbances; Translations: [Word finding difficulty] Onset: 01-06-2025 Episodic Other non-traumatic joint disorders (20 sources) Enthesopathy of hip region; Translations: [Other specified joint disorders, right hip] Onset: 08-09-2022 Episodic Other non-traumatic joint disorders (1 source) Other specified joint disorders, right hip; Translations: [Right hip impingement syndrome] Onset: 08-09-2022 Episodic Other non-traumatic joint disorders (1 source) Pain in unspecified joint; Translations: [Pain in joint, multiple sites] Onset: 05-18-2025 Episodic Other nutritional; endocrine; and metabolic disorders (20 sources) Body mass index 30+ - obesity; Translations: [Body mass index (BMI) 30.0-30.9, adult] Onset: 10-05-2022 Resolved: 06-06-2023 Chronic Other nutritional; endocrine; and metabolic disorders (20 sources) Obese class I; Translations: [Obesity, unspecified] Onset: 10-23-2022 Resolved: 06-06-2023 Chronic Other screening for suspected conditions (not mental disorders or infectious disease) (3 sources) Thyroid function tests abnormal; Translations: [Other specified abnormal findings of blood chemistry] Onset: 01-06-2025 Episodic Residual codes; unclassified (20 sources) History of surgical procedure on cervical spine; Translations: [Other specified postprocedural states] Onset: 10-03-2016 10-03-2016 Episodic Unclassified (1 source) Patient encounter status 01-06-2025 Urinary tract infections (2 sources) Recurrent urinary tract infection; Translations: [Urinary tract infection, site not specified] Onset: 01-06-2025 12-08-2024 Episodic Results Test Name Value Interpretation Reference Range Facility 25(OH)D3 [facility] 2024 25-hydroxyvitamin D3 [Mass/Vol] 32.8 ng/mL Normal 31.0-80.0 [facility] Comment on above: Order Comment: Larry wiley Type: BLOOD SPECIMEN Ordering Facility: [facility] Address: [address] [place] [address] Result Comment: Clas sification of 25 [place] Vitamin D status: Deficiency/Insufficiency: < or = 30 ng/ml. Sufficiency/Optimal Levels: 31-80 ng/mL Toxicity: > 100 ng/mL. Test performed by chemiluminescent immunoassay. Performed By: #### 1 7859-0, 55204-2, 1989-01 #### [facility] CLIA [id number] [address] [place] [address] [place] CBC panel Auto (Bld)on 08-29 Erythrocyte distribution width (RBC) [Ratio] 11.9 % Normal 11.5-15.0 [facility] Comment on above: Order Comment: Larry wiley Type: BLOOD SPECIMEN Ordering Facility: [facility] Address: [address] [place] [address] Performed By: #### 1 7859-0, 05420-6, 1989-01 #### [facility] CLIA [id number] [address] [place] [address] [place] Hematocrit (Bld) [Volume fraction] 37.8 % Normal 36.0-46.0 [facility] Comment on above: Order Comment: Larry wiley Type: BLOOD SPECIMEN Ordering Facility: [facility] Address: [address] [place] [address] Performed By: #### 1 7859-0, 35776-8, 1989-01 #### [facility] CLIA [id number] [address] [place] [address] [place] Hemoglobin (Bld) [Mass/Vol] 12.7 g/dL Normal 11.5-15.5 [facility] Comment on above: Order Comment: Larry wiley Type: BLOOD SPECIMEN Ordering Facility: [facility] Address: [address] [place] [address] Performed By: #### 1 7859-0, 15971-8, 1989-01 #### [facility] CLIA [id number] [address] [place] [address] [place] MCH (RBC) [Entitic mass] 32.0 pg Normal 26.0-34.0 [facility] Comment on above: Order Comment: Speci men Type: BLOOD SPECIMEN Ordering Facility: [facility] Address: [address] [place] [address] Performed By: #### 1 7859-0, , 1989-01 #### [facility] CLIA [id number] [address] [place] [address] [place] MCHC (RBC) [Mass/Vol] 33.6 g/dL Normal 30.5-36.0 [facility] Comment on above: Order Comment: Speci men Type: BLOOD SPECIMEN Ordering Facility: [facility] Address: [address] [place] [address] Performed By: #### 1 7859-0, , 1989-01 #### [facility] CLIA [id number] [address] [place] [address] [place] MCV (RBC) [Entitic vol] 95.2 fL Normal 80.0-100.0 [facility] Comment on above: Order Comment: Speci men Type: BLOOD SPECIMEN Ordering Facility: [facility] Address: [address] [place] [address] Performed By: #### 1 7859-0, , 1989-01 #### [facility] CLIA [id number] [address] [place] [address] [place] Nucleated RBC (Bld) [#/Vol] 10*3/uL Normal <0.01 [facility] Comment on above: Order Comment: Speci men Type: BLOOD SPECIMEN Ordering Facility: [facility] Address: [address] [place] [address] Performed By: #### 1 7859-0, 64000-1, 1989-01 #### [facility] CLIA [id number] [address] [place] [address] [place] Platelet mean volume (Bld) [Entitic vol] 10.9 fL Normal 9.0-12.7 [facility] Comment on above: Order Comment: Speci men Type: BLOOD SPECIMEN Ordering Facility: [facility] Address: [address] [place] [address] Performed By: #### 1 7859-0, 41531-7, 1989-01 #### [facility] CLIA [id number] [address] [place] [address] [place] Platelets (Bld) [#/Vol] 141 10*3/uL Low 150-400 [facility] Comment on above: Order Comment: Speci men Type: BLOOD SPECIMEN Ordering Facility: [facility] Address: [address] [place] [address] Performed By: #### 1 7859-0, 35787-4, 1989-01 #### [facility] CLIA [id number] [address] [place] [address] [place] RBC (Bld) [#/Vol] 3.97 10*6/uL Normal 3.90-5.20 [facility] Comment on above: Order Comment: Speci men Type: BLOOD SPECIMEN Ordering Facility: [facility] Address: [address] [place] [address] Performed By: #### 1 7859-0, 07121-6, 1989-01 #### [facility] CLIA [id number] [address] [place] [address] [place] WBC (Bld) [#/Vol] 3.70 10*3/uL Normal 3.70-11.00 [facility] Comment on above: Order Comment: Speci men Type: BLOOD SPECIMEN Ordering Facility: [facility] Address: [address] [place] [address] Performed By: #### 1 7859-0, 33065-3, 1989-01 #### [facility] CLIA [id number] [address] [place] [address] [place] CNPAngelica 08-29-2025 CNPN Telephone (OBGYWM) KIRA ADHIKARI ([id number]) 1985 [facility] Date Time Provider Department 08/29/25 CARLOTTA NORIEGA During your visit today, we recorded the following information about you: Eve Sheffield RN 08/29/2025 9:08 AM Signed Please file orders. FREDERICK Andres Sara, MD 08/29/2025 10:25 AM Signed filed Eve Sheffield RN 08/29/2025 10:26 AM Signed Patient aware. Eve Sheffield RN Allergies As of Date: 08/29/2025 Noted Allergy Reaction DILAUDID (HYDROMORPHONE) 08/06/2016 9 - Itching FENTANYL 08/06/2016 9 - Itching SULFA (SULFONAMIDE ANTIBIOTICS) 08/06/2016 2 - Rash Date Reviewed: 07/21/2025 Reviewed by: Radha Curiel MA - Fully Assessed Reason for Visit: Orders [681] Primary Visit Diagnosis:Well woman exam [Z01.419] Other Visit Diagnoses:Encounter for routine laboratory testing [Z01.89] PCOS (polycystic ovarian syndrome) [E28.2] H/O chronic inflammatory arthritis [Z87.39] Dyslipidemia [E78.5] Other fatigue [R53.83] History of vitamin D deficiency [Z86.39] Vitamin D deficiency [E55.9] Order(s):COMPLETE BLOOD COUNT [SQCBC] Order #: [id number] FUTURE COMPREHENSIVE METABOLIC PANEL [SQCMP] Order #: [id number] FUTURE HEMOGLOBIN A1C [DFVSA3V] Order #: [id number] FUTURE LIPID PANEL, FASTING [SQLIPB] Order #: [id number] FUTURE VITAMIN D 25 HYDROXY [SQVITD] Order #: [id number] FUTURE VITAMIN B12 [SQB12] Order #: [id number] FUTURE T4 FREE/FREE THYROXINE [SQFT4] Order #: [id number] FUTURE THYROID STIMULATING HORMONE [SQTSH] Order #: [id number] FUTURE Prescriptions as of 08/29/2025 - leflunomide (ARAVA) 20 mg tablet TAKE 1 TABLET BY MOUTH EVERY DAY. - Diclofenac Potassium (CAMBIA) 50 mg pwpk Take 1 Packet by mouth as needed for migraine headache. Can repeat dose in 2 hours, no more than 2 doses per day, or 2 days per week - predniSONE (DELTASONE) 10 mg tablet Take 3 tablets by mouth daily for 1 week, then 2 tablets daily by mouth for 1 week , then 1 tablet by mouth daily for 1 week, then stop. Please take with food. - secukinumab (COSENTYX PEN) 150 mg/mL Inject 150mg (1 pen) subcutaneously at weeks 0, 1, 2, 3, and 4 and then every 4 weeks therafter. - dihydroergotamine (DHE) 1 mg/mL injection Inject 1 mL intramuscular injection at headache onset. May repeat once per hour as needed up to 2 more doses. No more than 3 mL per 24 hours. - Filter [place] 19 x 1 1/2 ndle Use as directed with DHE. Draw up DHE solution with the filter needle and then switch to smaller needle for injection. - Syringe with Needle, Disp, (BD TUBERCULIN SYRINGE) 1 mL 27 x 1/2 Use with DHE injections - omeprazole (PRILOSEC) 40 mg capsule Take 1 capsule by mouth once daily. - ondansetron (ZOFRAN) 8 mg tablet Take 1 tablet by mouth every 8 hours as needed for nausea/vomiting. - progesterone micronized (PROMETRIUM) 100 mg capsule Take 1 capsule by mouth daily at bedtime. - fremanezumab-vfrm (AJOVY AUTOINJECTOR) 225 mg/1.5 mL auto-injector Inject 4.5 mL under the skin every 3 months. - buPROPion SR (WELLBUTRIN SR) 150 mg 12 hr tablet Take 1 tablet by mouth two times a day. - rosuvastatin (CRESTOR) 5 mg tablet Take 1 tablet by mouth once daily. - tirzepatide (MOUNJARO) 15 mg/0.5 mL pen injector Inject 15 mg subcutaneously one time a week. - Egndwuyl9-Kiwvpx3-Shfo p therm. (VSL#3) 112.5 billion cell cap Take 2 capsules by mouth daily at bedtime. - ondansetron (ZOFRAN) 4 mg tablet Take 1 tablet by mouth every 12 hours as needed for nausea/vomiting. - clobetasol (TEMOVATE) 0.05 % ointment Apply 1 application to affected area two times a day. - Magnesium Citrate 150mg (Pure Encapsulations) Take 4 capsules daily. - riboflavin, vitamin B2, (VITAMIN B-2) 100 mg tab Take 4 tablets by mouth once daily. - coenzyme Q10 (COQ-10) 100 mg cap capsule Take 1 capsule by mouth twice daily. - vitamin D3-folic acid 5,000 unit- 1 mg tab Take 5,000 Units by mouth once daily. - multivitamin tablet Take 1 tablet by mouth once daily. Problem List As Of Date 08/29/2025 Noted Resolved H/O cervical spine surgery [Z98.890] 10/03/2016 Chronic neck pain [M54.2, G89.29] 03/29/2019 Hx of neck surgery [Z98.890] 01/13/2020 Radiculopathy, cervical region [M54.12] 01/13/2020 Arm numbness left [R20.0] 01/13/2020 Clenching of teeth [R19.8] 01/10/2021 Myofascial muscle pain [M79.18] 01/10/2021 Centric occlusion maximum intercuspation discre*01/10/2021 Arthralgia of left temporomandibular joint [M26*01/10/2021 Hyponatremia [E87.1] 03/21/2021 Acute metabolic encephalopathy [G93.41] 03/21/2021 Migraine headache with aura [G43.109] 03/21/2021 Water intoxication [E87.79] 03/22/2021 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, G89.29] 03/22/2021 Inflammatory arthritis [M19.90] 03/22/2021 Somatic dysfunction of rib [M99.08] 04/23/2021 Somatic dysfunction of spine, thoracic [M99.02] 04/23/2021 (more content not included)... Normal [facility] Comprehensive metabolic 2000 panelon 08-29-2025 Albumin [Mass/Vol] 4.5 g/dL Normal 3.9-4.9 [facility] Comment on above: Order Comment: Speci men Type: BLOOD SPECIMEN Ordering Facility: [facility] Address: [address] [place] [address] Performed By: #### 1 7859-0, , 1989-01 #### [facility] CLIA [id number] [address] [place] [address] [place] ALP [Catalytic activity/Vol] 40 U/L Normal 34-123 [facility] Comment on above: Order Comment: Speci men Type: BLOOD SPECIMEN Ordering Facility: [facility] Address: [address] [place] [address] Performed By: #### 1 7859-0, , 1989-01 #### [facility] CLIA [id number] [address] [place] [address] [place] ALT [Catalytic activity/Vol] 17 U/L Normal 7-38 [facility] Comment on above: Order Comment: Speci men Type: BLOOD SPECIMEN Ordering Facility: [facility] Address: [address] [place] [address] Performed By: #### 1 7859-0, , 1989-01 #### [facility] CLIA [id number] [address] [place] [address] [place] Anion gap [Moles/Vol] 12 mmol/L Normal 8-15 [facility] Comment on above: Order Comment: Speci men Type: BLOOD SPECIMEN Ordering Facility: [facility] Address: [address] [place] [address] Performed By: #### 1 7859-0, , 1989-01 #### [facility] CLIA [id number] [address] [place] [address] [place] AST [Catalytic activity/Vol] 23 U/L Normal 13-35 [facility] Comment on above: Order Comment: Speci men Type: BLOOD SPECIMEN Ordering Facility: [facility] Address: [address] [place] [address] Performed By: #### 1 7859-0, 00766-2, 1989-01 #### [facility] CLIA [id number] [address] [place] [address] [place] Bilirubin [Mass/Vol] 0.5 mg/dL Normal 0.2-1.3 [facility] Comment on above: Order Comment: Speci men Type: BLOOD SPECIMEN Ordering Facility: [facility] Address: [address] [place] [address] Performed By: #### 1 7859-0, , 1989-01 #### [facility] CLIA [id number] [address] [place] [address] [place] Calcium [Mass/Vol] 9.3 mg/dL Normal 8.5-10.2 [facility] Comment on above: Order Comment: Speci men Type: BLOOD SPECIMEN Ordering Facility: [facility] Address: [address] [place] [address] Performed By: #### 1 7859-0, , 1989-01 #### [facility] CLIA [id number] [address] [place] [address] [place] Chloride [Moles/Vol] 103 mmol/L Normal 98-107 [facility] Comment on above: Order Comment: Speci men Type: BLOOD SPECIMEN Ordering Facility: [facility] Address: [address] [place] [address] Performed By: #### 1 7859-0, , 1989-01 #### [facility] CLIA [id number] [address] [place] [address] [place] CO2 [Moles/Vol] 24 mmol/L Normal 22-30 [facility] Comment on above: Order Comment: Larry wiley Type: BLOOD SPECIMEN Ordering Facility: [facility] Address: [address] [place] [address] Performed By: #### 1 7859-0, , 1989-01 #### [facility] CLIA [id number] [address] [place] [address] [place] Creatinine [Mass/Vol] 0.71 mg/dL Normal 0.58-0.96 [facility] Comment on above: Order Comment: Speci men Type: BLOOD SPECIMEN Ordering Facility: [facility] Address: [address] [place] [address] Performed By: #### 1 7859-0, , 1989-01 #### [facility] CLIA [id number] [address] [place] [address] [place] eGFRcr SerPlBld CKD-EPI 2020 110 mL/min/1.73m??? Normal >=60 [facility] Comment on above: Order Comment: Larry wiley Type: BLOOD SPECIMEN Ordering Facility: [facility] Address: [address] [place] [address] Result Comment: Helen mated Glomerular Filtration Rate (eGFR) is calculated using the 2020 CKD-EPI creatinine equation. This equation utilizes serum creatinine, sex, and age as parameters. The creatinine assay has traceable calibration to isotope dilution-mass spectrometry. Refer to KDIGO guidelines for clinical interpretation. In patients with unstable renal function, e.g. those with acute kidney injury, the eGFR may not accurately reflect actual GFR. Performed By: #### 1 7859-0, , 1989-01 #### [facility] CLIA [id number] [address] [place] [address] [place] Glucose [Mass/Vol] 92 mg/dL Normal 74-99 [facility] Comment on above: Order Comment: Rosemaryi inez Type: BLOOD SPECIMEN Ordering Facility: [facility] Address: [address] [place] [address] Result Comment: The [place] Diabetes Association (ADA) provides guidance for cutoff values for fasting glucose and random glucose. The ADA defines fasting as no caloric intake for at least 8 hours. Fasting plasma glucose results between 100 to 125 mg/dL indicate increased risk for diabetes (prediabetes). Fasting plasma glucose results greater than or equal to 126 mg/dL meet the criteria for diagnosis of diabetes. In the absence of unequivocal hyperglycemia, results should be confirmed by repeat testing. In a patient with classic symptoms of hyperglycemia or hyperglycemic crisis, random plasma glucose results greater than or equal to 200 mg/dL meet the criteria for diagnosis of diabetes. Reference: Standards of Medical Care in Diabetes 2016, [place] Diabetes Association. Diabetes Care. 2016.39(Suppl 1). Performed By: #### 1 7859-0, , 1989-01 #### [facility] CLIA [id number] [address] [place] [address] [place] Potassium [Moles/Vol] 4.0 mmol/L Normal 3.7-5.1 [facility] Comment on above: Order Comment: Speci men Type: BLOOD SPECIMEN Ordering Facility: [facility] Address: [address] [place] [address] Performed By: #### 1 7859-0, , 1989-01 #### [facility] CLIA [id number] [address] [place] [address] [place] Protein [Mass/Vol] 7.2 g/dL Normal 6.3-8.0 [facility] Comment on above: Order Comment: Speci men Type: BLOOD SPECIMEN Ordering Facility: [facility] Address: [address] [place] [address] Performed By: #### 1 7859-0, , 1989-01 #### [facility] CLIA [id number] [address] [place] [address] [place] Sodium [Moles/Vol] 139 mmol/L Normal 136-144 [facility] Comment on above: Order Comment: Speci men Type: BLOOD SPECIMEN Ordering Facility: [facility] Address: [address] [place] [address] Performed By: #### 1 7859-0, , 1989-01 #### [facility] CLIA [id number] [address] [place] [address] [place] Urea nitrogen [Mass/Vol] 9 mg/dL Normal 7-21 [facility] Comment on above: Order Comment: Larry wiley Type: BLOOD SPECIMEN Ordering Facility: [facility] Address: [address] [place] [address] Performed By: #### 1 7859-0, , 1989-01 #### [facility] CLIA [id number] [address] [place] [address] [place] HbA1c (Bld)on 08-29-2025 Average glucose Estimated from glycated hemoglobin (Bld) [Mass/Vol] 94 mg/dL Normal [facility] Comment on above: Order Comment: Larry inez Type: BLOOD SPECIMEN Ordering Facility: [facility] Address: [address] [place] [address] Result Comment: eAG: (Estimated average glucose) is a calculated value from HgbA1c and is care support representative of the average blood glucose level in the last 2-3 month period. Performed By: #### 1 7859-0, , 1989-01 #### [facility] CLIA [id number] [address] [place] [address] [place] HbA1c (Bld) [Mass fraction] 4.9 % Normal 4.3-5.6 [facility] Comment on above: Order Comment: Larry [facility] Type: BLOOD SPECIMEN Ordering Facility: [facility] Address: [address] [place] [address] Result Comment: Amer [place] Diabetes Association guidelines indicate that patients with HgbA1c in the range 5.7-6.4% are at increased risk for development of diabetes, and intervention by lifestyle modification may be beneficial. HgbA1c greater or equal to 6.5% is considered diagnostic of diabetes. Performed By: #### 1 7859-0, , 1989-01 #### [facility] CLIA [id number] [address] [place] [address] [place] Lipid 1996 panelon 5 Cholesterol [Mass/Vol] 205 mg/dL High <200 [facility] Comment on above: Order Comment: Speci men Type: BLOOD SPECIMEN Ordering Facility: [facility] Address: [address] [place] [address] Result Comment: <200 mg/dL, Desirable 200-239 mg/dL, Borderline high >239 mg/dL, High Performed By: #### 1 7859-0, , 1989-01 #### [facility] CLIA [id number] [address] [place] [address] [place] Cholesterol in HDL [Mass/Vol] 70 mg/dL Normal >39 [facility] Comment on above: Order Comment: Speci men Type: BLOOD SPECIMEN Ordering Facility: [facility] Address: [address] [place] [address] Result Comment: 40-5 9 mg/dL, Acceptable >59 mg/dL, High: Negative risk factor for coronary heart disease <40 mg/dL, Low: Positive risk factor for coronary heart disease Performed By: #### 1 7859-0, , 1989-01 #### [facility] CLIA [id number] [address] [place] [address] [place] Cholesterol in LDL [Mass/Vol] 120 mg/dL High <100 [facility] Comment on above: Order Comment: Speci men Type: BLOOD SPECIMEN Ordering Facility: [facility] Address: [address] [place] [address] Result Comment: <100 mg/dL, Optimal 100-129 mg/dL, Near optimal/above optimal 130-159 mg/dL, Borderline high 160-189 mg/dL, High >189 mg/dL, Very high Secondary prevention optimal LDL Cholesterol levels are recommended to be <70 mg/dL LDL cholesterol is calculated using the Sutton-NIH equation. Performed By: #### 1 7859-0, 90511-8, 1989-01 #### [facility] CLIA [id number] [address] [place] [address] [place] Cholesterol in LDL/Cholesterol in HDL [Mass ratio] 1.71 {ratio} Normal <2.54 [facility] Comment on above: Order Comment: Speci men Type: BLOOD SPECIMEN Ordering Facility: [facility] Address: [address] [place] [address] Result Comment: Refkannan cramer: 1. National Cholesterol Education Program ATP III Guideline At-A-Glance Quick Desk Reference: National Heart, Lung, and Blood [place]. National Institutes of Health. 2001: NIH Publication No. 01-3305. 2. An International Atherosclerosis Society position paper: global recommendations for the management of dyslipidemia: executive summary, Atherosclerosis. 2014: 232(2):410-413. Performed By: #### 1 7859-0, , 1989-01 #### [facility] CLIA [id number] [address] [place] [address] [place] Cholesterol in VLDL [Mass/Vol] 15 mg/dL Normal <30 [facility] Comment on above: Order Comment: Speci men Type: BLOOD SPECIMEN Ordering Facility: [facility] Address: [address] [place] [address] Performed By: #### 1 7859-0, 10879-6, 1989-01 #### [facility] CLIA [id number] [address] [place] [address] [place] Cholesterol non HDL [Mass/Vol] 135 mg/dL High <130 [facility] Comment on above: Order Comment: Speci men Type: BLOOD SPECIMEN Ordering Facility: [facility] Address: [address] [place] [address] Result Comment: <130 mg/dL, Optimal 130-159 mg/dL, Near optimal/above optimal 160-189 mg/dL, Borderline high 190-219 mg/dL, High >219 mg/dL, Very high Secondary prevention optimal non HDL Cholesterol levels are recommended to be <100 mg/dL Performed By: #### 1 7859-0, 34128-7, 1989-01 #### [facility] CLIA [id number] [address] [place] [address] [place] Cholesterol.total/C holesterol in HDL [Mass ratio] 2.93 {ratio} Normal <5.10 [facility] Comment on above: Order Comment: Speci men Type: BLOOD SPECIMEN Ordering Facility: [facility] Address: [address] [place] [address] Performed By: #### 1 7859-0, 73843-8, 1989-01 #### [facility] CLIA [id number] [address] [place] [address] [place] FASTING TIME 12 hrs Normal [facility] Comment on above: Order Comment: Speci men Type: BLOOD SPECIMEN Ordering Facility: [facility] Address: [address] [place] [address] Performed By: #### 1 7859-0, , 1989-01 #### [facility] CLIA [id number] [address] [place] [address] [place] Triglyceride [Mass/Vol] 85 mg/dL Normal <150 [facility] Comment on above: Order Comment: Speci men Type: BLOOD SPECIMEN Ordering Facility: [facility] Address: [address] [place] [address] Result Comment: <150 mg/dL, Normal 150-199 mg/dL, Borderline high 200-499 mg/dL, High >499 mg/dL, Very high Performed By: #### 1 7859-0, 61354-3, 1989-01 #### [facility] CLIA [id number] [address] [place] [address] [place] T4 Free SerPl-mCncon 025 Free T4 [Mass/Vol] 0.9 ng/dL Normal 0.9-1.7 [facility] Comment on above: Order Comment: Speci men Type: BLOOD SPECIMEN Ordering Facility: [facility] Address: [address] [place] [address] Performed By: #### 1 7859-0, 13078-6, 1989-01 #### [facility] CLIA [id number] [address] [place] [address] [place] TSH SerPl-aCncon 08-29-2025 TSH Qn 1.860 m[IU]/L Normal 0.270-4.200 [facility] Comment on above: Order Comment: Speci men Type: BLOOD SPECIMEN Ordering Facility: [facility] Address: [address] [place] [address] Result Comment: If t he patient is , TSH reference range varies by gestational period: First Trimester (weeks 9-12): 0.180-2.990 mIU/L Second Trimester: 0.110-3.980 mIU/L Third Trimester: 0.480-4.710 mIU/L Yeyo Cheung et al. A Practical Approach for the Verifications and Determination of Site- and Trimester-Specific Reference Intervals for Thyroid Function tests in . Thyroid, 2019:29:3:412-420. Hill E, et al. 2017 Guidelines of the [place] Thyroid Association for the Diagnosis and Management of Thyroid Disease during and the . Thyroid, 2017:27:3:315-389. Performed By: #### 1 7859-0, 45559-1, 1989-01 #### [facility] CLIA [id number] [address] [place] [address] [place] Vit B12 SerPl-mCncon 025 Cobalamin (Vitamin B12) [Mass/Vol] 1063 pg/mL Normal 232-1245 [facility] Comment on above: Order Comment: Speci men Type: BLOOD SPECIMEN Ordering Facility: [facility] Address: [address] [place] [address] Performed By: #### 1 7859-0, 54871-7, 1989-01 #### [facility] CLIA [id number] [address] [place] [address] [place] CNOVon 07-21-2025 CNOV Office Visit ([facility]) KIRA ADHIKARI ([id number]) 1985 F [facility] Date Time Provider Department 07/21/25 10:30 AM SUNIL OWEN [facility] During your visit today, we recorded the following information about you: Pulse Blood pressure Weight 92/minute 113/75 61.2 kg Sunil Owen, 07/21/2025 11:11 AM Signed [facility] - Follow-up Visit ASSESSMENT: 39 year old female with history significant for migraine with aura, chronic migraine, PCOS, TMD, cervical disk herniation, neck pain, autoimmune arthritis, with variable cycles of high frequency episodic migraine and chronic migraine with contributions from occipital neuralgia and cervicogenic headache. PLAN: (Please see typed patient instructions for detailed instructions) ---> Acute Treatment: -Cambia helps. Generic diclofenac was not effective. -Trudhesa DHE ns not covered so we'll send injectable DHE for rescue. ---> Preventive Treatment: -Continue Ajovy quarterly. She feels this has helped. We discussed future consideration of changing to Vyepti for additional efficacy. -Botox today. ---> Follow-up: 3 months for Botox. Kira Adhikari has been previously approved for Calcitonin Gene Related Peptide Monoclonal Antibody (CGRP MAB) (Fremanezumab). The patient has demonstrated the following: Patient reduction in overall migraine days: Yes Patient reduction in moderate-severe migraine days: Yes Individual has obtained clinical benefit deemed significant by individual or prescriber: Yes Patient's quality of life and ability to perform ADLs has improved: Yes We suggest the patient continue treatment with CGRP MAB Fremanezumab. The following preventative medications have been tried for three or more months without benefit: Anti-Convulsant Divalproex sodium (Depakote) Pregabalin (Lyrica) Topiramate (Topamax, Trokendi XL, Qudexy) no benefit Anti-Depressant and Antipsychotic Bupropion (Wellbutrin) Duloxetine (Cymbalta) Nortriptyline (Pamelor, Aventyl) Blood Pressure Metoprolol (Lopressor,Toprol XL) Propranolol (Inderal) initial benefit GEPANTS Atogepant MABs Erenumab (Aimovig) Fremanezumab (Ajovy) Botulinum Toxin Onabotulinum Toxin A (Botox), Onabotulimum Toxin A (Botox) 6 years loss of efficacy, done with gen neuro outside of [facility] Supplements CoQ10 Magnesium Riboflavin The following abortive medications have been tried but require high frequency use which can lead to Medication Overuse Headache: Analgesic Diclofenac (Voltaren, Cataflam, Cambia) Cambia works well. Generic diclofenac is not effective Indomethacin (Indocin) no benefit Ketorolac (Toradol) no benefit Meperidine (Demerol) Morphine (Mellissa, Ms Contin) Oxycodone Oxycodone/Acetaminophe n (Percocet) Anti-Anxiety Diazepam (Valium) Anti-Migraine Lasmiditan (Reyvow) Rizatriptan (Maxalt) ineffective Sumatriptan (Imitrex, Sumavel) ineffective GEPANTS Ubrogepant (Ubrelvy) Rimegepant (Nurtec) no benefit Over the Counter Medications Acetaminophen (Tylenol) Acetaminophen/Aspirin/ Caffeine (Excedrin, Goody?s) Aspirin Ibuprofen (Advil, Motrin) Naproxen sodium (Aleve) Last Visit: 04/06/25 Interval Headache Hx: [place] she did well with last Botox. Interval Testing: n/a Follow-Up Onabotulinum Toxin A (BotoxTM) for Migraine Indication: Chronic Intractable Migraine Treatment #: 2 Referral Expiration: 01/01/2026 Prior to the initiation of the FIRST treatment with Onabotulinum Toxin A, the patient reported the following average headache frequency over the past 3 MONTHS: Number of moderate-severe migraine days/month: 30 (daily) Number of mild migraine days/month: 0 Number of headache free days/month: 0 (0 headache-free hours) Migraine severity: 10 After treatment with Onabotulinum Toxin A: Number of moderate-severe migraine days/month: 2 Number of mild migraine days/month: 10 Number of headache free days/month: 18 (432 headache-free hours) Migraine severity: 5/10 Patient reduction in overall migraine days: Yes Patient reduction in moderate-severe migraine days: Yes Patient reduction of headache hours by 100 hours or more: Yes (reduction of 432 hours) Individual has obtained clinical benefit deemed significant by individual or prescriber (Y/N): Yes Patient's quality of life and ability to perform ADLs has improved (Y/N): Yes Side effects: none Wearing off: No The patient has been assessed for disorders which could contribute to breathing or swallowing difficulty, and there is no contraindication with PREEMPT Botox. There is no documented allergic reaction/hypersensitiv ity to any botulinum toxin and there is no active infection at proposed injection site. HEADACHE SCORES: 01/01/2024 04/05/2025 07/20/2025 Headache Question (more content not included)... Normal [facility] 05-18-2025 [facility] Telephone ([facility]) KIRA ADHIKARI ([id number]) 1985 F [facility] Date Time Provider Department 05/18/25 AJIT TORRE During your visit today, we recorded the following information about you: Allergies As of Date: 05/18/2025 Noted Allergy Reaction DILAUDID (HYDROMORPHONE) 08/06/2016 9 - Itching FENTANYL 08/06/2016 9 - Itching SULFA (SULFONAMIDE ANTIBIOTICS) 08/06/2016 2 - Rash Date Reviewed: 04/06/2025 Reviewed by: Radha Curiel MA - Fully Assessed Prescriptions as of 05/18/2025 - secukinumab (COSENTYX) 75 mg/0.5 mL injection Inject 150 mg SC at weeks 0, 1, 2, 3, and 4 followed by 150 mg every 4 weeks thereafter - dihydroergotamine (DHE) 1 mg/mL injection Inject 1 mL intramuscular injection at headache onset. May repeat once per hour as needed up to 2 more doses. No more than 3 mL per 24 hours. - leflunomide (ARAVA) 20 mg tablet TAKE 1 TABLET BY MOUTH EVERY DAY - Filter [place] 19 x 1 1/2 ndle Use as directed with DHE. Draw up DHE solution with the filter needle and then switch to smaller needle for injection. - Syringe with Needle, Disp, (BD TUBERCULIN SYRINGE) 1 mL 27 x 1/2 Use with DHE injections - omeprazole (PRILOSEC) 40 mg capsule Take 1 capsule by mouth once daily. - ondansetron (ZOFRAN) 8 mg tablet Take 1 tablet by mouth every 8 hours as needed for nausea/vomiting. - carisoprodol (SOMA) 350 mg tablet Take 1 tablet by mouth three times a day as needed for pain or muscle spasms. - progesterone micronized (PROMETRIUM) 100 mg capsule Take 1 capsule by mouth daily at bedtime. - fremanezumab-vfrm (AJOVY AUTOINJECTOR) 225 mg/1.5 mL auto-injector Inject 4.5 mL under the skin every 3 months. - predniSONE (DELTASONE) 10 mg tablet Take 3 tablets by mouth daily for 1 week, then 2 tablets daily by mouth for 1 week , then 1 tablet by mouth daily for 1 week, then stop. Please take with food. - buPROPion SR (WELLBUTRIN SR) 150 mg 12 hr tablet Take 1 tablet by mouth two times a day. - rosuvastatin (CRESTOR) 5 mg tablet Take 1 tablet by mouth once daily. - tirzepatide (MOUNJARO) 15 mg/0.5 mL pen injector Inject 15 mg subcutaneously one time a week. - Diclofenac Potassium (CAMBIA) 50 mg pwpk Take 1 Packet by mouth as needed for migraine headache. Can repeat dose in 2 hours, no more than 2 doses per day, or 2 days per week - Sfkbmzcx8-Zulmmo8-Nmpf p therm. (VSL#3) 112.5 billion cell cap Take 2 capsules by mouth daily at bedtime. - ondansetron (ZOFRAN) 4 mg tablet Take 1 tablet by mouth every 12 hours as needed for nausea/vomiting. - clobetasol (TEMOVATE) 0.05 % ointment Apply 1 application to affected area two times a day. - Magnesium Citrate 150mg (Pure Encapsulations) Take 4 capsules daily. - riboflavin, vitamin B2, (VITAMIN B-2) 100 mg tab Take 4 tablets by mouth once daily. - coenzyme Q10 (COQ-10) 100 mg cap capsule Take 1 capsule by mouth twice daily. - vitamin D3-folic acid 5,000 unit- 1 mg tab Take 5,000 Units by mouth once daily. - multivitamin tablet Take 1 tablet by mouth once daily. Problem List As Of Date 05/18/2025 Noted Resolved H/O cervical spine surgery [Z98.890] 10/03/2016 Chronic neck pain [M54.2, G89.29] 03/29/2019 Hx of neck surgery [Z98.890] 01/13/2020 Radiculopathy, cervical region [M54.12] 01/13/2020 Arm numbness left [R20.0] 01/13/2020 Clenching of teeth [R19.8] 01/10/2021 Myofascial muscle pain [M79.18] 01/10/2021 Centric occlusion maximum intercuspation discre*01/10/2021 Arthralgia of left temporomandibular joint [M26*01/10/2021 Hyponatremia [E87.1] 03/21/2021 Acute metabolic encephalopathy [G93.41] 03/21/2021 Migraine headache with aura [G43.109] 03/21/2021 Water intoxication [E87.79] 03/22/2021 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, G89.29] 03/22/2021 Inflammatory arthritis [M19.90] 03/22/2021 Somatic dysfunction of rib [M99.08] 04/23/2021 Somatic dysfunction of spine, thoracic [M99.02] 04/23/2021 Somatic dysfunction of spine, cervical [M99.01] 04/23/2021 Acute right-sided thoracic back pain [M54.6] 04/23/2021 Neck pain [M54.2] 04/23/2021 Chronic migraine without aura, with intractable*07/18/2022 Right hip impingement syndrome [M25.851] 08/09/2022 BMI 30.0-30.9,adult [Z68.30] 10/05/2022 06/06/2023 Impaired fasting glucose [R73.01] 10/05/2022 Dyslipidemia [E78.5] 10/23/2022 PCOS (polycystic ovarian syndrome) [E28.2] 10/23/2022 Obesity, Class I, BMI 30-34.9 [E66.811] 10/23/2022 06/06/2023 PVC's (premature ventricular contractions) [I49*06/06/2023 Lichen sclerosus [L90.0] 11/21/2020 Hypercholesteremia [E78.00] Acute post-operative pain [G89.18] 06/12/2023 Vitamin D deficiency [E55.9] 06/26/2023 Intractable chronic migraine without aura and w*07/22/2023 Chronic migraine without aura, intractable, wit*07/22/2023 Migraine with aura and without status migrainos*07/22/2023 Cervicalgia [M54.2] 07/22/2023 Bilateral o (more content not included)... Normal [facility] ALT SerPl-cCncon 05-02-2025 ALT [Catalytic activity/Vol] 13 U/L Normal 7-38 [facility] Comment on above: Order Comment: Speci men Type: BLOOD SPECIMEN Ordering Facility: [facility] Address: [address] [place] [address] Performed By: #### 1 7859-0, 21761-5, 1989-01 #### [facility] CLIA [id number] [address] [place] [address] [place] AST SerPl-cCncon 05-02-2025 AST [Catalytic activity/Vol] 16 U/L Normal 13-35 [facility] Comment on above: Order Comment: Speci men Type: BLOOD SPECIMEN Ordering Facility: [facility] Address: [address] [place] [address] Performed By: #### 1 7859-0, 92874-9, 1989-01 #### [facility] CLIA [id number] [address] [place] [address] [id number] [address] [place] CBC panel Auto (Bld)on 05-02 Erythrocyte distribution width (RBC) [Ratio] 12.5 % Normal 11.5-15.0 [facility] Comment on above: Order Comment: Speci men Type: BLOOD SPECIMEN Ordering Facility: [facility] Address: [address] [place] [address] Performed By: #### 5 8410-2 #### [facility] CLIA [id number] [address] [place] [address] [place] Hematocrit (Bld) [Volume fraction] 39.1 % Normal 36.0-46.0 [facility] Comment on above: Order Comment: Speci men Type: BLOOD SPECIMEN Ordering Facility: [facility] Address: [address] [place] [address] Performed By: #### 5 8410-2 #### [facility] CLIA [id number] [address] [place] [address] [place] Hemoglobin (Bld) [Mass/Vol] 12.7 g/dL Normal 11.5-15.5 [facility] Comment on above: Order Comment: Speci men Type: BLOOD SPECIMEN Ordering Facility: [facility] Address: [address] [place] [address] Performed By: #### 5 8410-2 #### [facility] CLIA [id number] [address] [place] [address] [place] MCH (RBC) [Entitic mass] 31.0 pg Normal 26.0-34.0 [facility] Comment on above: Order Comment: Speci men Type: BLOOD SPECIMEN Ordering Facility: [facility] Address: [address] [place] [address] Performed By: #### 5 8410-2 #### [facility] CLIA [id number] [address] [place] [address] [place] MCHC (RBC) [Mass/Vol] 32.5 g/dL Normal 30.5-36.0 [facility] Comment on above: Order Comment: Speci men Type: BLOOD SPECIMEN Ordering Facility: [facility] Address: [address] [place] [address] Performed By: #### 5 8410-2 #### [facility] CLIA [id number] [address] [place] [address] [place] MCV (RBC) [Entitic vol] 95.4 fL Normal 80.0-100.0 [facility] Comment on above: Order Comment: Speci men Type: BLOOD SPECIMEN Ordering Facility: [facility] Address: [address] [place], [place] [address] Performed By: #### 5 8410-2 #### [facility] CLIA [id number] [address] [place] [address] [place] Nucleated RBC (Bld) [#/Vol] 10*3/uL Normal <0.01 [facility] Comment on above: Order Comment: Speci men Type: BLOOD SPECIMEN Ordering Facility: [facility] Address: [address] [place] [address] Performed By: #### 5 8410-2 #### [facility] CLIA [id number] [address] [place] [address] [place] Platelet mean volume (Bld) [Entitic vol] 10.3 fL Normal 9.0-12.7 [facility] Comment on above: Order Comment: Speci men Type: BLOOD SPECIMEN Ordering Facility: [facility] Address: [address] [place] [address] Performed By: #### 5 8410-2 #### [facility] CLIA [id number] [address] [place] [address] [place] Platelets (Bld) [#/Vol] 147 10*3/uL Low 150-400 [facility] Comment on above: Order Comment: Speci inez Type: BLOOD SPECIMEN Ordering Facility: [facility] Address: [address] [place] [address] Performed By: #### 5 8410-2 #### [facility] CLIA [id number] [address] [place] [address] [place] RBC (Bld) [#/Vol] 4.10 10*6/uL Normal 3.90-5.20 [facility] Comment on above: Order Comment: Speci men Type: BLOOD SPECIMEN Ordering Facility: [facility] Address: [address] [place] [address] Performed By: #### 5 8410-2 #### [facility] CLIA [id number] [address] [place] [address] [place] WBC (Bld) [#/Vol] 4.38 10*3/uL Normal 3.70-11.00 [facility] Comment on above: Order Comment: Speci men Type: BLOOD SPECIMEN Ordering Facility: [facility] Address: [address] [place] [address] Performed By: #### 5 8410-2 #### [facility] [id number] [address] [place] [address] [place] Creatinine + eGFR Pnl SerPlB ldon 05-02-2025 Creatinine and Glomerular filtration rate.predicted panel (S/P/Bld) 109 mL/min/1.73m??? Normal >=60 [facility] Comment on above: Order Comment: Larry wiley Type: BLOOD SPECIMEN Ordering Facility: [facility] Address: [address] [place] [address] Result Comment: Helen mated Glomerular Filtration Rate (eGFR) is calculated using the 2020 CKD-EPI creatinine equation. This equation utilizes serum creatinine, sex, and age as parameters. The creatinine assay has traceable calibration to isotope dilution-mass spectrometry. Refer to KDIGO guidelines for clinical interpretation. In patients with unstable renal function, e.g. those with acute kidney injury, the eGFR may not accurately reflect actual GFR. Performed By: #### 1 7859-0, 62515-2, 1989-01 #### [facility] CLIA [id number] [address] [place] [address] [place] Creatinine and Glomerular fi ltration rate.predicted panel (S/P/Bld)on 05-02-2025 Creatinine [Mass/Vol] 0.72 mg/dL Normal 0.58-0.96 [facility] Comment on above: Order Comment: Speci men Type: BLOOD SPECIMEN Ordering Facility: [facility] Address: [address] [place] [address] Performed By: #### 1 7859-0, 02848-7, 1989-01 #### [facility] CLIA [id number] [address] [place] [address] [place] MR Sacrum and Coccyx WO cont darcy 05-02-2025 IMPRESSION: NORMAL SACROILIAC JOINTS WITHOUT EVIDENCE OF INFLAMMATORY ARTHROPATHY. EXPECTED POSTSURGICAL CHANGES OF THE RIGHT HIP JOINT. Ore Buyer: KATH Transcribe Date/Time: May 02 2025 8:42A Dictated by : ADAMS MCALLISTER MD This examination was interpreted and the report reviewed and electronically signed by: ADAMS MCALLISTER MD on May 02 2025 8:45AM [facility] DIVISION OF RADIOLOGY * * *Final Report* * * DATE OF EXAM: May 02 2025 7:26AM [facility] 0235 - MRI SACRUM/COCCYX WO IVCON / PROCEDURE REASON: Disorder of bone * * * * Physician Interpretation * * * * History: . Disorder of bone . Inflammatory arthritis Technique: Routine MRI of the pelvis and both hips ; dedicated coronal oblique images through the SI joints. Comparison: None Result: HIP JOINTS: Right hip: Large field of view images of this joint limits evaluation of articular structures. Suture anchor tracks are seen labral repair. Femoroplasty. Left hip: Large field of view images of this joint limits evaluation of articular structures. No visible abnormality SI JOINTS: Normal appearing sacroiliac joints bilaterally. BONE MARROW: There is no evidence of fracture, bone bruise, marrow replacing lesion or osteonecrosis. TENDONS: The rectus femoris tendons, iliopsoas tendons, hamstring tendons, hip adductor and abductor tendons appear to be intact bilaterally. MUSCLE: Muscle bulk and signal intensity are within normal limits. NERVES: The visualized portions of the lumbosacral plexus and sciatic nerves appear to be within normal limits. VISCERAL PELVIS: Limited evaluation of the visceral pelvis is unremarkable. OTHER: No other significant abnormality identified. DIVISION OF RADIOLOGY Provider, [facility] - 05/02/2025 * * *Final Report* * * DATE OF EXAM: May 02 2025 7:26AM [facility] 0235 - MRI SACRUM/COCCYX WO IVCON / PROCEDURE REASON: Disorder of bone * * * * Physician Interpretation * * * * History: . Disorder of bone . Inflammatory arthritis Technique: Routine MRI of the pelvis and both hips ; dedicated coronal oblique images through the SI joints. Comparison: None Result: HIP JOINTS: Right hip: Large field of view images of this joint limits evaluation of articular structures. Suture anchor tracks are seen labral repair. Femoroplasty. Left hip: Large field of view images of this joint limits evaluation of articular structures. No visible abnormality SI JOINTS: Normal appearing sacroiliac joints bilaterally. BONE MARROW: There is no evidence of fracture, bone bruise, marrow replacing lesion or osteonecrosis. TENDONS: The rectus femoris tendons, iliopsoas tendons, hamstring tendons, hip adductor and abductor tendons appear to be intact bilaterally. MUSCLE: Muscle bulk and signal intensity are within normal limits. NERVES: The visualized portions of the lumbosacral plexus and sciatic nerves appear to be within normal limits. VISCERAL PELVIS: Limited evaluation of the visceral pelvis is unremarkable. OTHER: No other significant abnormality identified. IMPRESSION IMPRESSION: NORMAL SACROILIAC JOINTS WITHOUT EVIDENCE OF INFLAMMATORY ARTHROPATHY. EXPECTED POSTSURGICAL CHANGES OF THE RIGHT HIP JOINT. Ore Buyer: KATH Transcribe Date/Time: May 02 2025 8:42A Dictated by : ADAMS MCALLISTER MD This examination was interpreted and the report reviewed and electronically signed by: ADAMS MCALLISTER MD on May 02 2025 8:45AM EST [facility] Radiology Study observation (narrative) [facility] MR Sacrum and Coccyx WO cont rastOrdered By: [facility] Provider on 05-02-2025 [facility] MRI SACRUM/COCCYX WO IVCONon 05-02-2025 MRI SACRUM/COCCYX WO IVCON * * *Final Report* * * DATE OF EXAM: May 02 2025 7:26AM [facility] 0235 - MRI SACRUM/COCCYX WO IVCON / PROCEDURE REASON: Disorder of bone * * * * Physician Interpretation * * * * History: . Disorder of bone . Inflammatory arthritis Technique: Routine MRI of the pelvis and both hips ; dedicated coronal oblique images through the SI joints. Comparison: None Result: HIP JOINTS: Right hip: Large field of view images of this joint limits evaluation of articular structures. Suture anchor tracks are seen labral repair. Femoroplasty. Left hip: Large field of view images of this joint limits evaluation of articular structures. No visible abnormality SI JOINTS: Normal appearing sacroiliac joints bilaterally. BONE MARROW: There is no evidence of fracture, bone bruise, marrow replacing lesion or osteonecrosis. TENDONS: The rectus femoris tendons, iliopsoas tendons, hamstring tendons, hip adductor and abductor tendons appear to be intact bilaterally. MUSCLE: Muscle bulk and signal intensity are within normal limits. NERVES: The visualized portions of the lumbosacral plexus and sciatic nerves appear to be within normal limits. VISCERAL PELVIS: Limited evaluation of the visceral pelvis is unremarkable. OTHER: No other significant abnormality identified. IMPRESSION: NORMAL SACROILIAC JOINTS WITHOUT EVIDENCE OF INFLAMMATORY ARTHROPATHY. EXPECTED POSTSURGICAL CHANGES OF THE RIGHT HIP JOINT. Ore Buyer: PSCB Transcribe Date/Time: May 02 2025 8:42A Dictated by : ADAMS MCALLISTER MD This examination was interpreted and the report reviewed and electronically signed by: ADAMS MCALLISTER MD on May 02 2025 8:45AM EST [id number] Normal [facility] XR SI JTS 2V AP PELV/FERGUSO Non 05-02-2025 XR SI JTS 2V AP PELV/CROW * * *Final Report* * * DATE OF EXAM: May 02 2025 7:44AM [id number] - XR SI JTS 2V AP PELV/CROW / PROCEDURE REASON: multiple diagnoses * * * * Physician Interpretation * * * * PROCEDURE: Sacroiliac joints INDICATION: Disorder of bone Chronic midline low back pain without sciatica Chronic midline low back pain without sciatica .chronic low back and SI joint pain. TECHNIQUE: XR SI JTS 2V AP PELV/CROW COMPARISON: 05/15/2023 FINDINGS: Normal appearing sacroiliac joints bilaterally. No erosions, sclerosis or ankylosis. Hip joints are maintained. IMPRESSION: No abnormality Ore Buyer: PSCB Transcribe Date/Time: May 04 2025 6:51A Dictated by : EMRE SANCHEZ MD This examination was interpreted and the report reviewed and electronically signed by: EMRE SANCHEZ MD on May 04 2025 6:52AM EST [id number] Normal [facility] CNOVon 04-06-2025 CNOV Office Visit ([facility]) KIRA ADHIKARI ([id number]) 1985 F [facility] Date Time Provider Department 04/06/25 10:30 AM SUNIL OWEN [facility] During your visit today, we recorded the following information about you: Pulse Blood pressure Weight 84/minute 116/81 59 kg Sunil Owen DO 04/06/2025 12:27 PM Signed [facility] - Follow-up Visit ASSESSMENT: 39 year old female with history significant for migraine with aura, chronic migraine, PCOS, TMD, cervical disk herniation, neck pain, autoimmune arthritis, with variable cycles of high frequency episodic migraine and chronic migraine with contributions from occipital neuralgia and cervicogenic headache. PLAN: (Please see typed patient instructions for detailed instructions) ---> Acute Treatment: -Cambia helps. Generic diclofenac was not effective. -Trudhesa DHE ns not covered so we'll send injectable DHE for rescue. -Soma instead of Methocarbamol since it was more helpful in the past. ---> Preventive Treatment: -Continue Ajovy quarterly. She feels this has helped. -Restart Botox today in hopes of using with Ajovy for synergistic benefit, as well as using a more effective pattern with extra over the occipital nerves. -We discussed the next steps of changing Ajovy to Vyepti (to also more effectively address her significant brain fog complaints) or Qulipta. ---> Follow-up: 3 months for Botox. Last Visit: 12/30/24 Interval Headache Hx: Here to restart Botox. Headaches about the same. Interval Testing: n/a New Onabotulinum Toxin A (BotoxTM) for Migraine Indication: Chronic Intractable Migraine Referral Expiration: 07/11/2025 Number of moderate-severe migraine days/month: 30 (daily) Number of mild migraine days/month: 0 Number of headache free days/month: 0 (0 headache-free hours) Migraine severity: 10/10 The patient has been assessed for disorders which could contribute to breathing or swallowing difficulty, and there is no contraindication with PREEMPT Botox. There is no documented allergic reaction/hypersensitiv ity to any botulinum toxin and there is no active infection at proposed injection site. HEADACHE SCORES: 07/21/2023 01/01/2024 04/05/2025 Headache Questions ID Migraine Screener: 3 (Positive) ER visits in the last year: 2 ER visits since last office visit: 0 0 Hospital stays in the last year: 0 Hospital stays since last office visit 0 0 Limited ADLs in the last month: 5 12 10 Days missed from work or school in the last month: 0 0 0 Days headache pain free in the last month: 25 3 5 Days per month with ALL of the following symptoms - decreased productivity, light sensitivity and nausea: 3 2 5 Initial improvement of headache after botox injection at last visit: Not applicable, I did not have a botox injection at my last visit Not applicable, I did not have a botox injection at my last visit PRN medication usage in the last month: 4 10 10 Patient impression of improvement since last visit: No change Minimally improved 01/01/2024 12/30/2024 04/05/2025 HIT-6 HIT-6 63 (Severe impact) 67 (Severe impact) 64 (Severe impact) 01/01/2024 12/30/2024 04/05/2025 LETICIA - 2/7 SCORES LETICIA-2 Score 0 2 0 03/29/2021 05/22/2021 Pain Disability Index PDI Score 45 22 01/01/2024 12/30/2024 04/05/2025 Migraine Specific QOL - Higher scores indicate better HRQL Role Function-Restrictive Transformed Score (range: 0-100) 62.86 0 40 Role Function-Preventive Transformed Score (range: 0-100) 65 45 55 Emotional Function Transformed Score (range: 0-100) 73.33 0 46.67 01/01/2024 12/30/2024 04/05/2025 PHQ-9 Score 1 9 2 BP 116/81 Pulse 84 Wt 59 kg (130 lb) LMP 03/06/2025 (Exact Date) BMI 21.63 kg/m? Patient name: Kiar Adhikari : 1985 ALLERGIES Allergen Reactions Dilaudid [Hydromorp* Itching Fentanyl Itching Sulfa (Sulfonamide * Rash UNIVERSAL PROTOCOL / SAFETY CHECKLIST Procedure to be Performed: Botox Sign In: A Moment of CARE was completed. Appropriate PPE (Personal Protective Equipment) worn by all providers involved with the procedure. Special equipment not required. Patient/Surrogate Stated/Verified: Patient name, Date of , Relevant allergies, and The intended procedure Time Out: Relevant labs, photos, and/or imaging studies have been reviewed. Intended patient and procedure match the source document(s) (e.g. consent, HANDP, associated studies [imaging, pathology]) match the intended patient and procedure. Consent obtained and matches the intended procedure. Yes. Correct side/site has been marked and visible. Medications required for this procedure are verified. Fire risk assessed and is not applicable. Implants: are not applicable. Sign Out: Specimens are all correctly labeled and sent. All instruments, equipm (more content not included)... Normal [facility] CNPNon 04-06-2025 CNPN Telephone ([facility]) KIRA ADHIKARI ([id number]) 1985 F [facility] Date Time Provider Department 04/06/25 SUNIL OWEN [facility] During your visit today, we recorded the following information about you: Elaine Tavares [facility] 04/06/2025 3:12 PM Signed [facility] received erx's today for dihydroergotamine injection, filtered needles and syringe w/ needles and had a few questions. In regards to the dihydroergotamine, per Lexidrug the max patient should use in 24 hours is 3 mg. From the current directions, it seems patient would be able to use more than 3 mg per 24 hours as patient can repeat the cycle every 8 hours. Should we include in the directions to only use a max of 3 mg in a 24 hour period? The filtered needle gauge that we have available is 19g instead of the prescribed 20g (it is still 5 microns). Would it be ok to substitute the 19g size? For the syringes, we don't have a 1 ml syringe w/ needle that would work with the filtered needles. The closest we have is a 3ml 25g 1 syringe w/ needle. Would it be ok to substitute these? Please review above questions and advise. Thank you kindly, Elaine Tavares, Pharmacist [facility] [phone] (phone) [phone] (fax) Jennifer Martin, RN 04/14/2025 10:29 AM Signed [facility] [phone] inquiring regarding message below; please advise. Thank you! Sunil Owen, 04/28/2025 10:03 AM Signed Yes, the filtered needle substitution is ok. With that said, if she doesn't need a filtered needle, we can skip it all together. I never used to prescribe it. The only reason I began adding the filtered needle was that a pharmacy said that was the only way they could dispense it. I've always prescribed DHE this way, but will send a readjusted script if they have an issue with it. I've written it with 30G needles for years, so not sure why not available. 25G is going to be too painful. Is there a 27G available if not a 30G? 3 mL is also too big, it really should be a 1 mL to ensure dosing is correct too. Can we just skip the filtered needle hassle and send the normal 30G 1 mL needle? Sunil Owen, 04/28/2025 10:07 AM Signed Addended by: SUNIL OWEN on: 04/28/2025 10:07 AM Modules accepted: Elaine Larry [facility] 04/28/2025 12:04 PM Signed Ok. I will substitute the filtered needled with what we have. A filtered needle is needed to draw up the DHE since the DHE is in glass ampules that are opened by breaking off the top. Using the filtered needle will catch any glass particles that may have gotten into the liquid. As for the syringe/needle combo to inject the DHE, the 30G that was originally prescribed is an insulin syringe and those needles do not come off to put on the filtered needle to draw up the DHE. The smallest gauge needle with a 1ml syringe that would work with the filtered needles that our shank inspector was able to find is a 1ml 27G 1/2 syringe/needle. Would this be ok to substitute? Also, the new DHE rx was sent to [facility]. Could this be resent to [facility]? Thank you for your help with this matter! Sunil Mitchell, 04/28/2025 3:50 PM Signed Thanks, yes I realize the reason but for decades it wasn't required and they just started doing that a couple years ago. It's very unlikely any glass is going to get pulled into a 30G needle, but I realize we have no other choice with the filtered needle option at this point. For many years I've written IM/SC DHE the same way with the same filter needle, 30G needle to inject, and 1 mL syringe and it's never had a problem getting that combo. So I'm assuming something must have changed with our supply chain options. With that said, the 1 mL 27G 1/2 syringe will work fine as a substitute. Thanks for finding a slightly smaller needle than the 25G. I'll resend to home delivery. Thanks! Sunil Owen, DO 04/28/2025 3:53 PM Signed Addended by: SUNIL OWEN on: 04/28/2025 03:53 PM Modules accepted: Orders Allergies As of Date: 04/06/2025 Noted Allergy Reaction DILAUDID (HYDROMORPHONE) 08/06/2016 9 - Itching FENTANYL 08/06/2016 9 - Itching SULFA (SULFONAMIDE ANTIBIOTICS) 08/06/2016 2 - Rash Date Reviewed: 04/06/2025 Reviewed by: Radha Curiel MA - Fully Assessed Reason for Visit: Medication Problem [65] Visit Diagnosis:Migraine with aura and without status migrainosus, not intractable [G43.109] Order(s):Order #: [id number] Prescriptions as of 04/28/2025 - dihydroergotamine (DHE) 1 mg/mL injection 1 mL intramuscular injection at headache onset. May repeat once per hour as needed up to 2 more doses. No more than 3 mL per 24 hours. - leflunomide (ARAVA) 20 mg tablet TAKE 1 TABLET BY MOUTH EVERY DAY - Filter [place] 5 micron 20 x 1 1/2 ndle Use as directed with DHE. Draw up DHE solution with separate filter needle a (more content not included)... Normal [facility] KIRA ADHIKARI ([id number]) 1985 F [facility] Date Time Provider Department 03/27/25 PORTILLO MCCALLUM During your visit today, we recorded the following information about you: Portillo Mccallum MD 03/27/2025 7:40 AM Signed FOLLOW UP ENDOSCOPY - RESULTS AND RECOMMENDATIONS NAME: Kira Adhikari CLINIC NO.: [id number] : 1985 DATE: March 27, 2025 PRIMARY CARE PROVIDER: David Kilgore DO Kira Adhikari is a patient referred for endoscopy for dysphagia. I performed upper endoscopy on March 162024. The patient was found to have: Upper Endoscopy Impression: - Normal examined jejunum. - Normal examined duodenum. - Gastritis, characterized by erosions and erythema. Biopsied. - Normal middle third of esophagus. Biopsied. - Mild reflux esophagitis with no bleeding. Pathology demonstrated: FINAL DIAGNOSIS A. Stomach, antrum, biopsy: - Gastric antral mucosa with no significant histopathologic findings. - No evidence of Helicobacter pylori organisms on MIKE stain. B. Esophagus, distal, biopsy: - Squamocolumnar junctional-type mucosa with acute and chronic inflammation and reactive epithelial changes. - Negative for intestinal metaplasia and dysplasia. C. Esophagus, mid, biopsy: - Squamous mucosa with no significant histopathologic findings. - No evidence of mucosal eosinophilia. IMPRESSION: Gastritis and Distal Esophagitis PLAN: INSTRUCTIONS FOR PEPTIC ULCER DISEASE/GASTRITIS I discussed with you the findings of your upper endoscopy. Your upper endoscopy demonstrated signs of peptic ulcer disease or irritation. This can be seen as a range of issues from actual ulcers in the stomach or duodenum (first part of the small bowel) or irritation ranging from redness to more significant irritation with erosions of the stomach or duodenum. These conditions are usually caused from a combination of too much acid production or too little protective mucus production in the stomach. Factors that increase acid production include smoking and stress. If you smoke, stopping smoking will often cure these issues without needing other medications. Factors that decrease the stomach's production of protective mucus include alcohol consumption, smoking, aspirin and other anti-inflammatory use. Over the counter medications including antiacids and acid reducing medications including H2 blockers (Zantac and the like) and proton pump inhibitors (prilosec, prevacid and the like) neutralize or prevent acid production. Prescription strength proton pump inhibitors (PPIs) may be necessary if your symptoms persist. Carafate may be added to PPI treatment in refractory cases. Avoiding smoking, alcohol and antiinflammatory medications are important in the successful treatment of peptic diseases. New or worsening symptoms such are epigastric pain, burning, difficulty swallowing or food sticking should be relayed to your physician. Feeling full early after eating, or black, tarry, foul smelling stools are also worrisome. If you have any difficulties or concerns, you should contact our office immediately. The patient is instructed to follow-up with your primary care provider I have instructed my staff to forward the above information to the patient and to the appropriate providers Allergies As of Date: 03/27/2025 Noted Allergy Reaction DILAUDID (HYDROMORPHONE) 08/06/2016 9 - Itching FENTANYL 08/06/2016 9 - Itching SULFA (SULFONAMIDE ANTIBIOTICS) 08/06/2016 2 - Rash Date Reviewed: 03/16/2025 Reviewed by: Mal Floyd RN - Fully Assessed Reason for Visit: Results [95] Prescriptions as of 03/27/2025 - omeprazole (PRILOSEC) 40 mg capsule Take 1 capsule by mouth once daily. - ondansetron (ZOFRAN) 8 mg tablet Take 1 tablet by mouth every 8 hours as needed for nausea/vomiting. - carisoprodol (SOMA) 350 mg tablet Take 1 tablet by mouth three times a day as needed for pain or muscle spasms. - progesterone micronized (PROMETRIUM) 100 mg capsule Take 1 capsule by mouth daily at bedtime. - fremanezumab-vfrm (AJOVY AUTOINJECTOR) 225 mg/1.5 mL auto-injector Inject 4.5 mL under the skin every 3 months. - dihydroergotamine (TRUDHESA) 0.725 mg/pump act. (4 mg/mL) nasal spray Prime with 4 pumps before use. 1 spray in each nostril at migraine onset. May repeat once in 1 hour if needed. No more than 2 doses/24 hours and 3 doses/week. A complete dose is 2 sprays: 1 spray in each nostril. - predniSONE (DELTASONE) 10 mg tablet Take 3 tablets by mouth daily for 1 week, then 2 tablets daily by mouth for 1 week , then 1 tablet by mouth daily for 1 week, then stop. Please take with food. - valACYclovir (VALTREX) 1 gram tablet Take 1 tablet by mouth once daily. - buPROPion SR (WELLBUTRIN SR) 150 mg 12 hr tablet Take 1 tablet by mouth two times a day. - leflunomide (ARAVA) 20 (more content not included)... [facility] [id number] 03-16-2025 [id number] HNO ID: [id number] Author: MAL FLOYD RN Service: ? Author Type: Registered Nurse Type: [id number] Filed: 03/16/2025 08:20 Note Text: The patient received a copy of EGD discharge instructions that contain information for how to contact the physician who performed the procedure and when to seek medical care. [facility] 03-16-2025 [facility] Telephone (DataboxS) KIRA ADHIKARI ([id number]) 1985 [facility] Date Time Provider Department 03/16/25 PORTILLO MCCALLUM [facility] During your visit today, we recorded the following information about you: Judy Barcenas RPh 03/16/2025 12:06 PM Signed [facility] received prescription(s) for omeprazole from Dr. Mccallum's office. Unfortunately, we do not carry or service non-specialty medications. If you would like the medication to be mailed to the patient by a [facility], please consider sending the Rx to [facility] (phone [phone]). Otherwise, please send the Rx to a [facility] outpatient pharmacy or patient's preferred pharmacy. Thanks, Janette SchaferD, [facility] PGY-1 Community-Based Straight Tooth Gear Generator Operator (Specialty) P: [phone] F: [phone] Allergies As of Date: 03/16/2025 Noted Allergy Reaction DILAUDID (HYDROMORPHONE) 08/06/2016 9 - Itching FENTANYL 08/06/2016 9 - Itching SULFA (SULFONAMIDE ANTIBIOTICS) 08/06/2016 2 - Rash Date Reviewed: 03/16/2025 Reviewed by: Mal Floyd RN - Fully Assessed Prescriptions as of 03/16/2025 - omeprazole (PRILOSEC) 40 mg capsule Take 1 capsule by mouth once daily. - ondansetron (ZOFRAN) 8 mg tablet Take 1 tablet by mouth every 8 hours as needed for nausea/vomiting. - carisoprodol (SOMA) 350 mg tablet Take 1 tablet by mouth three times a day as needed for pain or muscle spasms. - progesterone micronized (PROMETRIUM) 100 mg capsule Take 1 capsule by mouth daily at bedtime. - fremanezumab-vfrm (AJOVY AUTOINJECTOR) 225 mg/1.5 mL auto-injector Inject 4.5 mL under the skin every 3 months. - dihydroergotamine (TRUDHESA) 0.725 mg/pump act. (4 mg/mL) nasal spray Prime with 4 pumps before use. 1 spray in each nostril at migraine onset. May repeat once in 1 hour if needed. No more than 2 doses/24 hours and 3 doses/week. A complete dose is 2 sprays: 1 spray in each nostril. - predniSONE (DELTASONE) 10 mg tablet Take 3 tablets by mouth daily for 1 week, then 2 tablets daily by mouth for 1 week , then 1 tablet by mouth daily for 1 week, then stop. Please take with food. - valACYclovir (VALTREX) 1 gram tablet Take 1 tablet by mouth once daily. - buPROPion SR (WELLBUTRIN SR) 150 mg 12 hr tablet Take 1 tablet by mouth two times a day. - leflunomide (ARAVA) 20 mg tablet TAKE 1 TABLET BY MOUTH EVERY DAY - rosuvastatin (CRESTOR) 5 mg tablet Take 1 tablet by mouth once daily. - abatacept (ORENCIA CLICKJECT) 125 mg/mL auto-injector Inject 125mg (1 pen) subcutaneously one time a week. - tirzepatide (MOUNJARO) 15 mg/0.5 mL pen injector Inject 15 mg subcutaneously one time a week. - Diclofenac Potassium (CAMBIA) 50 mg pwpk Take 1 Packet by mouth as needed for migraine headache. Can repeat dose in 2 hours, no more than 2 doses per day, or 2 days per week - Uiejudau9-Zkdwbr4-Rcpo p therm. (VSL#3) 112.5 billion cell cap Take 2 capsules by mouth daily at bedtime. - ondansetron (ZOFRAN) 4 mg tablet Take 1 tablet by mouth every 12 hours as needed for nausea/vomiting. - clobetasol (TEMOVATE) 0.05 % ointment Apply 1 application to affected area two times a day. - Magnesium Citrate 150mg (Pure Encapsulations) Take 4 capsules daily. - riboflavin, vitamin B2, (VITAMIN B-2) 100 mg tab Take 4 tablets by mouth once daily. - coenzyme Q10 (COQ-10) 100 mg cap capsule Take 1 capsule by mouth twice daily. - vitamin D3-folic acid 5,000 unit- 1 mg tab Take 5,000 Units by mouth once daily. - multivitamin tablet Take 1 tablet by mouth once daily. Problem List As Of Date 03/16/2025 Noted Resolved H/O cervical spine surgery [Z98.890] 10/03/2016 Chronic neck pain [M54.2, G89.29] 03/29/2019 Hx of neck surgery [Z98.890] 01/13/2020 Radiculopathy, cervical region [M54.12] 01/13/2020 Arm numbness left [R20.0] 01/13/2020 Clenching of teeth [R19.8] 01/10/2021 Myofascial muscle pain [M79.18] 01/10/2021 Centric occlusion maximum intercuspation discre*01/10/2021 Arthralgia of left temporomandibular joint [M26*01/10/2021 Hyponatremia [E87.1] 03/21/2021 Acute metabolic encephalopathy [G93.41] 03/21/2021 Migraine headache with aura [G43.109] 03/21/2021 Water intoxication [E87.79] 03/22/2021 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 Normal [facility] EGD Study observation [place] 03-16-2025 [facility] Gastrointestinal Endoscopy Patient Name: Kira Adhikari Procedure Date: 03/16/2025 7:21 AM Date of : 1985 Admit Type: Outpatient Age: 39 Gender: Female Note Status: Finalized Procedure: Upper GI endoscopy Indications: Dysphagia Providers: Portillo Mccallum MD Patient Profile: This is a 39 year old female. Refer to note in patient chart for documentation of history and physical. Referring Physician: Janiya Ziegler (Referring MD) Medicines: Fentanyl 100 micrograms IV, Midazolam 5 mg IV, Diphenhydramine 50 mg IV Complications: No immediate complications. Requesting Provider: Procedure: Pre-Anesthesia Assessment: - Prior to the procedure, a History and Physical was performed, and patient medications and allergies were reviewed. The patient is competent. The risks and benefits of the procedure and the sedation options and risks were discussed with the patient. All questions were answered and informed consent was obtained. Patient identification and proposed procedure were verified by the physician and the nurse in the procedure room. Mental Status Examination: normal. Respiratory Examination: clear to auscultation. CV Examination: normal. ASA Grade Assessment: II - A patient with mild systemic disease. After reviewing the risks and benefits, the patient was deemed in satisfactory condition to undergo the procedure. The anesthesia plan was to use moderate sedation / analgesia (conscious sedation). Immediately prior to administration of medications, the patient was re-assessed for adequacy to receive sedatives. The heart rate, respiratory rate, oxygen saturations, blood pressure, adequacy of pulmonary ventilation, and response to care were monitored throughout the procedure. The physical status of the patient was re-assessed after the procedure. - Prior to the procedure, a History and Physical was performed, and patient medications and allergies were reviewed. The patient's tolerance of previous anesthesia was also reviewed. The risks and benefits of the procedure and the sedation options and risks were discussed with the patient. All questions were answered, and informed consent was obtained. Prior Anticoagulants: The patient has taken no anticoagulant or antiplatelet agents. ASA Grade Assessment: II - A patient with mild systemic disease. After reviewing the risks and benefits, the patient was deemed in satisfactory condition to undergo the procedure. After obtaining informed consent, the endoscope was passed under direct vision. Throughout the procedure, the patient's blood pressure, pulse, and oxygen saturations were monitored continuously. The Endosonoscope was introduced through the mouth, and advanced to the jejunum. The upper GI endoscopy was accomplished without difficulty. The patient tolerated the procedure well. Moderate Sedation: Moderate (conscious) sedation was personally administered by the endoscopist. The following parameters were monitored: oxygen saturation, heart rate, blood pressure, and response to care. Total physician intraservice time was 9 minutes. The administration of moderate sedation was initiated at 07:45. Findings: The examined jejunum was normal. The examined duodenum was normal. Localized moderate inflammation characterized by erosions and erythema was found in the gastric antrum. Biopsies were taken with a cold forceps for histology. The middle third of the esophagus was normal. Biopsies were taken with a cold forceps for histology. Mild esophagitis with no bleeding was found in the lower third of the esophagus. Impression: - Normal examined jejunum. - Normal examined duodenum. (more content not included)... [facility] Study observation (narrative) [facility] HISTORY PHYSICALon HISTORY PHYSICAL HNO ID: [id number] Author: PORTILLO MCCALLUM MD Service: General Surgery Author Type: Physician Type: H&P Filed: 03/16/2025 07:31 Note Text: PROCEDURAL SEDATION HISTORY AND PHYSICAL EXAM SERVICE DATE: 03/16/2025 SERVICE TIME: 7:29 AM Subjective HPI: This is a 39 year old female who presents with reflux and dysphagia and globus symptoms 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 Past Week Yes progesterone micronized (PROMETRIUM) 100 mg capsule Take 1 capsule by mouth daily at bedtime. 03/15/2025 Yes valACYclovir (VALTREX) 1 gram tablet Take 1 tablet by mouth once daily. 03/15/2025 Yes buPROPion SR (WELLBUTRIN SR) 150 mg 12 hr tablet Take 1 tablet by mouth two times a day. 03/15/2025 Yes leflunomide (ARAVA) 20 mg tablet TAKE 1 TABLET BY MOUTH EVERY DAY 03/15/2025 Yes abatacept (ORENCIA CLICKJECT) 125 mg/mL auto-injector Inject 125mg (1 pen) subcutaneously one time a week. Past Week Yes Nzbnswtz4-Jdikah9-Opmu p therm. (VSL#3) 112.5 billion cell cap Take 2 capsules by mouth daily at bedtime. 03/15/2025 Yes Magnesium Citrate 150mg (Pure Encapsulations) Take 4 capsules daily. 03/15/2025 Yes riboflavin, vitamin B2, (VITAMIN B-2) 100 mg tab Take 4 tablets by mouth once daily. 03/15/2025 Yes vitamin D3-folic acid 5,000 unit- 1 mg tab Take 5,000 Units by mouth once daily. 03/15/2025 Yes multivitamin tablet Take 1 tablet by mouth once daily. 03/15/2025 Yes ondansetron (ZOFRAN) 8 mg tablet Take 1 tablet by mouth every 8 hours as needed for nausea/vomiting. Unknown fremanezumab-vfrm (AJOVY AUTOINJECTOR) 225 mg/1.5 mL auto-injector Inject 4.5 mL under the skin every 3 months. Unknown dihydroergotamine (TRUDHESA) 0.725 mg/pump act. (4 mg/mL) nasal spray Prime with 4 pumps before use. 1 spray in each nostril at migraine onset. May repeat once in 1 hour if needed. No more than 2 doses/24 hours and 3 doses/week. A complete dose is 2 sprays: 1 spray in each nostril. Unknown predniSONE (DELTASONE) 10 mg tablet Take 3 tablets by mouth daily for 1 week, then 2 tablets daily by mouth for 1 week , then 1 tablet by mouth daily for 1 week, then stop. Please take with food. Unknown rosuvastatin (CRESTOR) 5 mg tablet Take 1 tablet by mouth once daily. Unknown tirzepatide (MOUNJARO) 15 mg/0.5 mL pen injector Inject 15 mg subcutaneously one time a week. Unknown Diclofenac Potassium (CAMBIA) 50 mg pwpk Take 1 Packet by mouth as needed for migraine headache. Can repeat dose in 2 hours, no more than 2 doses per day, or 2 days per week Unknown ondansetron (ZOFRAN) 4 mg tablet Take 1 tablet by mouth every 12 hours as needed for nausea/vomiting. Unknown clobetasol (TEMOVATE) 0.05 % ointment Apply 1 application to affected area two times a day. coenzyme Q10 (COQ-10) 100 mg cap capsule Take 1 capsule by mouth twice daily. Unknown ALLERGIES Allergen Reactions Dilaudid [Hydromorp* Itching Fentanyl Itching Sulfa (Sulfonamide * Rash Objective PHYSICAL EXAM: The remainder of the physical exam is noncontributory. AIRWAY: Airway Visualization of Uvula: Yes Mouth opening greater than 2 fingerbreadths: Yes Neck Full Range of Motion: Yes LUNGS: Lungs clear to auscultation CARDIAC: Regular rhythm,Regular rate Assessment/Plan ASA Class: ASA Class: Patient with mild systemic disease * Medication and Non-Pharmacologic VTE Prophylaxis/Anticoagul ants VTE Prophylaxis: VTE prophylaxis appropriate Provisional Diagnosis/Treatment Plan: EGD for Dysphagia Sedation Goal: Moderate SIGNATURE: Portillo Mccallum MD PATIENT NAME: Kira Adhikari DATE: March 16, 2025 TIME: 7:29 AM Normal [facility] Pathology biopsy report Chente (Tiss)on 03-16-2025 AP DISCLAIMER Normal [facility] Comment on above: Order Comment: Speci men Type: TISSUE SPECIMENOrdering Facility: [facility] Address: [address] [place] [address] Result Comment: Taras pablo Developed Test (LDT) Disclaimer: Performance characteristics of immunohistochemical, immunofluorescent, and chromogenic in-situ hybridization tests have been determined by the performing laboratory within [facility] Pathology and Laboratory Medicine Department ([facility], [facility], [facility], [facility], [facility], [facility], or [facility] [place] [place]) in a manner consistent with CLIA requirements. One or more of these tests may not have been cleared or approved by the FDA. [facility] is regulated under CLIA as qualified to perform high-complexity testing. These tests are used for clinical purposes. These should not be regarded as investigational or for research. Positive and negative controls stain appropriately. Performed By: #### 6 6121-5 ####[facility] [id number] [place] [address] [place] CASE REPORT Normal [facility] Comment on above: Order Comment: Speci men Type: TISSUE SPECIMENOrdering Facility: [facility] Address: [address] [place] [address] Result Comment: Surg ica Pathology Report Case: [id number] Authorizing Provider: Portillo Mccallum MD Collected: 03/16/2025 07:52 AM Ordering Location: Ambulatory Surgery Received: 03/16/2025 12:35 PM Pathologist: Claudio Carcamo MD Specimens: A) - Stomach, Antrum, Biopsy, Antral bx h/h B) - Esophagus, Distal, Biopsy, DISTAL C) - Esophagus, Mid, Biopsy, MID Performed By: #### 6 6121-5 ####[facility] [id number] [address] [place] FINAL DIAGNOSIS Normal [facility] Comment on above: Order Comment: Speci men Type: TISSUE SPECIMENOrdering Facility: [facility] Address: [address] [place] [address] Result Comment: Griffin Barrios tomach, antrum, biopsy: - Gastric antral mucosa with no significant histopathologic findings. - No evidence of Helicobacter pylori organisms on H&E stain. B. Esophagus, distal, biopsy: - Squamocolumnar junctional-type mucosa with acute and chronic inflammation and reactive epithelial changes. - Negative for intestinal metaplasia and dysplasia. C. Esophagus, mid, biopsy: - Squamous mucosa with no significant histopathologic findings. - No evidence of mucosal eosinophilia. at 1150 EDT Performed By: #### 6 6121-5 ####[facility] [id number] [place] [address] [place] FINAL PERFORMING LAB Normal [facility] Comment on above: Order Comment: Speci men Type: TISSUE SPECIMENOrdering Facility: [facility] Address: [address] [place] [address] Result Comment: Diag nostic interpretation performed at: [facility], [address] [place] [address] CLIA# [id number] Highway Maintenance Supervisor: Omar Suarez MD Performed By: #### 6 6121-5 ####[facility] [id number] [address] OF [facility] GROSS DESCRIPTION Normal [facility] Comment on above: Order Comment: Speci men Type: TISSUE SPECIMENOrdering Facility: [facility] Address: [address] [place] [address] Result Comment: A. S tomach, Antrum, Biopsy Received in formalin are two pieces of hudson, soft tissue aggregating to 0.9 x 0.3 x 0.1 cm. Totally submitted in one cassette. B. Esophagus, Distal, Biopsy Received in formalin is one piece of hudson, soft tissue measuring 0.5 x 0.3 x 0.2 cm. Totally submitted in one cassette. C. Esophagus, Mid, Biopsy Received in formalin is one piece of hudson-white, soft tissue measuring 0.5 x 0.3 x 0.1 cm. Totally submitted in one cassette. Gross examination performed at [facility], [address] [place] [address] AMS March 16, 2025 6:13 PM Performed By: #### [id number] ####[facility] LABCLIA [id number] [address] [place] Upper GI endoscopyon 03-16- 025 [facility] Patient Name: Kira Adhikari Procedure Date: 03/16/2025 7:21 AM Date of : 1985 Admit Type: Outpatient Age: 39 Gender: Female Note Status: Finalized Procedure: Upper GI endoscopy Indications: Dysphagia Providers: Portillo Mccallum MD Patient Profile: This is a 39 year old female. Refer to note in patient chart for documentation of history and physical. Referring Physician: Janiya Ziegler (Referring MD) Medicines: Fentanyl 100 micrograms IV, Midazolam 5 mg IV, Diphenhydramine 50 mg IV Complications: No immediate complications. Requesting Provider: Procedure: Pre-Anesthesia Assessment: - Prior to the procedure, a History and Physical was performed, and patient medications and allergies were reviewed. The patient is competent. The risks and benefits of the procedure and the sedation options and risks were discussed with the patient. All questions were answered and informed consent was obtained. Patient identification and proposed procedure were verified by the physician and the nurse in the procedure room. Mental Status Examination: normal. Respiratory Examination: clear to auscultation. CV Examination: normal. ASA Grade Assessment: II - A patient with mild systemic disease. After reviewing the risks and benefits, the patient was deemed in satisfactory condition to undergo the procedure. The anesthesia plan was to use moderate sedation / analgesia (conscious sedation). Immediately prior to administration of medications, the patient was re-assessed for adequacy to receive sedatives. The heart rate, respiratory rate, oxygen saturations, blood pressure, adequacy of pulmonary ventilation, and response to care were monitored throughout the procedure. The physical status of the patient was re-assessed after the procedure. - Prior to the procedure, a History and Physical was performed, and patient medications and allergies were reviewed. The patient's tolerance of previous anesthesia was also reviewed. The risks and benefits of the procedure and the sedation options and risks were discussed with the patient. All questions were answered, and informed consent was obtained. Prior Anticoagulants: The patient has taken no anticoagulant or antiplatelet agents. ASA Grade Assessment: II - A patient with mild systemic disease. After reviewing the risks and benefits, the patient was deemed in satisfactory condition to undergo the procedure. After obtaining informed consent, the endoscope was passed under direct vision. Throughout the procedure, the patient's blood pressure, pulse, and oxygen saturations were monitored continuously. The Endosonoscope was introduced through the mouth, and advanced to the jejunum. The upper GI endoscopy was accomplished without difficulty. The patient tolerated the procedure well. Moderate Sedation: Moderate (conscious) sedation was personally administered by the endoscopist. The following parameters were monitored: oxygen saturation, heart rate, blood pressure, and response to care. Total physician intraservice time was 9 minutes. The administration of moderate sedation was initiated at 07:45. Findings: The examined jejunum was normal. The examined duodenum was normal. Localized moderate inflammation characterized by erosions and erythema was found in the gastric antrum. Biopsies were taken with a cold forceps for histology. The middle third of the esophagus was normal. Biopsies were taken with a cold forceps for histology. Mild esophagitis with no bleeding was found in the lower third of the esophagus. Impression: - Normal examined jejunum. - Normal examined duodenum. - Gastritis, characterized by erosions and erythema. Biopsied. - Normal middle third of esophagus. Biopsied. - Mild reflux esophagitis with no bleeding. Recommendation: - Discharge patient to home. - Resume previous diet. - Continue present medications. - Use Prilosec (omeprazole) 40 mg PO daily. - Telephone my office for pathology results in 1 week. Procedure Code(s): --- Professional --- 63598, Esophagogastroduodenos copy, flexible, transoral; with biopsy, single or multiple CPT copyright 2020 [employer]. All rights reserved. The codes documented in this report are preliminary and upon fire observer review may be revised to meet current compliance requirements. Attending Participation: I was present and participated during the entire procedure, including non-king portions, and during the administration and monitoring of Moderate Sedation. Scope In: 7:51:11 AM Scope Out: 7:54:58 AM MD Portillo Mares MD 03/16/2025 8:08:56 AM This report has been signed electronically by Portillo Mccallum MD Number of Addenda: 0 Note Initiated On: 03/16/2025 7:21 AM Estimated Blood Loss: Estimated blood loss: none. Normal [facility] 02-25-2025 [facility] Telephone (FAMWS) KIRA ADHIKARI ([id number]) 1985 [facility] Date Time Provider Department 02/25/25 MAR HARVEY [facility] During your visit today, we recorded the following information about you: Mar Harvey APRN.CNP 02/25/2025 2:36 PM Signed The following approved medication requests have been transmitted electronically. Requested Prescriptions Signed Prescriptions Disp Refills ondansetron (ZOFRAN) 8 mg tablet 20 tablet 1 Sig: Take 1 tablet by mouth every 8 hours as needed for nausea/vomiting. Authorizing Provider: MAR HARVEY nitrofurantoin monohydrate and macrocrystal (MACROBID) 100 mg capsule 14 capsule 0 Sig: Take 1 capsule by mouth two times a day for 7 days. Authorizing Provider: MAR HARVEY azithromycin (ZITHROMAX Z-CRYSTAL) 250 mg tablet 6 tablet 0 Sig: Take 2 tablets day one, then, 1 tablet daily until gone. Authorizing Provider: MAR HARVEY ciprofloxacin HCl (CIPRO) 500 mg tablet 28 tablet 0 Sig: Take 1 tablet by mouth two times a day for 14 days. Authorizing Provider: MAR HARVEY APRN.[facility] Allergies As of Date: 02/25/2025 Noted Allergy Reaction DILAUDID (HYDROMORPHONE) 08/06/2016 9 - Itching FENTANYL 08/06/2016 9 - Itching SULFA (SULFONAMIDE ANTIBIOTICS) 08/06/2016 2 - Rash Date Reviewed: 02/15/2025 Reviewed by: Wanda English OA - Fully Assessed Reason for Visit: Orders [681] Order(s):ondansetron (ZOFRAN) 8 mg tabletTake 1 tablet by mouth every 8 hours as needed for nausea/vomiting.Disp: 20 tabletRfl: 1 nitrofurantoin monohydrate and macrocrystal (MACROBID) 100 mg capsuleTake 1 capsule by mouth two times a day for 7 days.Disp: 14 capsuleRfl: 0 azithromycin (ZITHROMAX Z-CRYSTAL) 250 mg tabletTake 2 tablets day one, then, 1 tablet daily until gone.Disp: 6 tabletRfl: 0 ciprofloxacin HCl (CIPRO) 500 mg tabletTake 1 tablet by mouth two times a day for 14 days.Disp: 28 tabletRfl: 0 Prescriptions as of 02/25/2025 - ondansetron (ZOFRAN) 8 mg tablet Take 1 tablet by mouth every 8 hours as needed for nausea/vomiting. - nitrofurantoin monohydrate and macrocrystal (MACROBID) 100 mg capsule Take 1 capsule by mouth two times a day for 7 days. - azithromycin (ZITHROMAX Z-CRYSTAL) 250 mg tablet Take 2 tablets day one, then, 1 tablet daily until gone. - ciprofloxacin HCl (CIPRO) 500 mg tablet Take 1 tablet by mouth two times a day for 14 days. - carisoprodol (SOMA) 350 mg tablet Take 1 tablet by mouth three times a day as needed for pain or muscle spasms. - progesterone micronized (PROMETRIUM) 100 mg capsule Take 1 capsule by mouth daily at bedtime. - fremanezumab-vfrm (AJOVY AUTOINJECTOR) 225 mg/1.5 mL auto-injector Inject 4.5 mL under the skin every 3 months. - dihydroergotamine (TRUDHESA) 0.725 mg/pump act. (4 mg/mL) nasal spray Prime with 4 pumps before use. 1 spray in each nostril at migraine onset. May repeat once in 1 hour if needed. No more than 2 doses/24 hours and 3 doses/week. A complete dose is 2 sprays: 1 spray in each nostril. - predniSONE (DELTASONE) 10 mg tablet Take 3 tablets by mouth daily for 1 week, then 2 tablets daily by mouth for 1 week , then 1 tablet by mouth daily for 1 week, then stop. Please take with food. - valACYclovir (VALTREX) 1 gram tablet Take 1 tablet by mouth once daily. - buPROPion SR (WELLBUTRIN SR) 150 mg 12 hr tablet Take 1 tablet by mouth two times a day. - leflunomide (ARAVA) 20 mg tablet TAKE 1 TABLET BY MOUTH EVERY DAY - rosuvastatin (CRESTOR) 5 mg tablet Take 1 tablet by mouth once daily. - abatacept (ORENCIA CLICKJECT) 125 mg/mL auto-injector Inject 125mg (1 pen) subcutaneously one time a week. - tirzepatide (MOUNJARO) 15 mg/0.5 mL pen injector Inject 15 mg subcutaneously one time a week. - Diclofenac Potassium (CAMBIA) 50 mg pwpk Take 1 Packet by mouth as needed for migraine headache. Can repeat dose in 2 hours, no more than 2 doses per day, or 2 days per week - Gbfwipjj4-Ojsyja9-Puwv p therm. (VSL#3) 112.5 billion cell cap Take 2 capsules by mouth daily at bedtime. - ondansetron (ZOFRAN) 4 mg tablet Take 1 tablet by mouth every 12 hours as needed for nausea/vomiting. - clobetasol (TEMOVATE) 0.05 % ointment Apply 1 application to affected area two times a day. - Magnesium Citrate 150mg (Pure Encapsulations) Take 4 capsules daily. - riboflavin, vitamin B2, (VITAMIN B-2) 100 mg tab Take 4 tablets by mouth once daily. - coenzyme Q10 (COQ-10) 100 mg cap capsule Take 1 capsule by mouth twice daily. - vitamin D3-folic acid 5,000 unit- 1 mg tab Take 5,000 Units by mouth once daily. - multivitamin tablet Take 1 tablet by mouth once daily. Problem List As Of Date 02/25/2025 Noted Resolved H/O cervical spine surgery [Z98.890] 10/03/2016 Chronic neck pain [M54.2, G89.29] 03/29/2019 Hx of neck surgery [Z98.890] 01/13/2020 Radiculopathy, cervical region [M54.12] 0 (more content not included)... Normal [facility] CNTHERAPYon 02-22-2025 CNTHERAPY OT/PT/Speech Visit (PTWS) KIRA ADHIKARI ([id number]) 1985 F [facility] Date Time Provider Department 02/22/25 12:30 PM BEATRIZ MELISSA PTWS Date Time Provider Department Center 02/22/2025 12:30 PM [id number], SEAN PTWS Dashawn Scherer Reason for Visit: PT Progress Note [1596] Primary Visit Diagnosis:Low back pain, unspecified back pain laterality, unspecified chronicity, unspecified whether sciatica present [M54.50] Other Visit Diagnoses:Radiculopath y, cervical region [M54.12] Spinal stenosis of cervical region [M48.02] Allergies As of Date: 02/22/2025 Noted Allergy Reaction DILAUDID (HYDROMORPHONE) 08/06/2016 9 - Itching FENTANYL 08/06/2016 9 - Itching SULFA (SULFONAMIDE ANTIBIOTICS) 08/06/2016 2 - Rash Date Reviewed: 02/15/2025 Reviewed by: Wanda English OA - Fully Assessed Prescriptions as of 02/22/2025 - progesterone micronized (PROMETRIUM) 100 mg capsule Take 1 capsule by mouth daily at bedtime. - fremanezumab-vfrm (AJOVY AUTOINJECTOR) 225 mg/1.5 mL auto-injector Inject 4.5 mL under the skin every 3 months. - dihydroergotamine (TRUDHESA) 0.725 mg/pump act. (4 mg/mL) nasal spray Prime with 4 pumps before use. 1 spray in each nostril at migraine onset. May repeat once in 1 hour if needed. No more than 2 doses/24 hours and 3 doses/week. A complete dose is 2 sprays: 1 spray in each nostril. - predniSONE (DELTASONE) 10 mg tablet Take 3 tablets by mouth daily for 1 week, then 2 tablets daily by mouth for 1 week , then 1 tablet by mouth daily for 1 week, then stop. Please take with food. - valACYclovir (VALTREX) 1 gram tablet Take 1 tablet by mouth once daily. - buPROPion SR (WELLBUTRIN SR) 150 mg 12 hr tablet Take 1 tablet by mouth two times a day. - leflunomide (ARAVA) 20 mg tablet TAKE 1 TABLET BY MOUTH EVERY DAY - rosuvastatin (CRESTOR) 5 mg tablet Take 1 tablet by mouth once daily. - abatacept (ORENCIA CLICKJECT) 125 mg/mL auto-injector Inject 125mg (1 pen) subcutaneously one time a week. - tirzepatide (MOUNJARO) 15 mg/0.5 mL pen injector Inject 15 mg subcutaneously one time a week. - Diclofenac Potassium (CAMBIA) 50 mg pwpk Take 1 Packet by mouth as needed for migraine headache. Can repeat dose in 2 hours, no more than 2 doses per day, or 2 days per week - Iajzefnd3-Pgxbbc0-Btwb p therm. (VSL#3) 112.5 billion cell cap Take 2 capsules by mouth daily at bedtime. - ondansetron (ZOFRAN) 4 mg tablet Take 1 tablet by mouth every 12 hours as needed for nausea/vomiting. - clobetasol (TEMOVATE) 0.05 % ointment Apply 1 application to affected area two times a day. - Magnesium Citrate 150mg (Pure Encapsulations) Take 4 capsules daily. - riboflavin, vitamin B2, (VITAMIN B-2) 100 mg tab Take 4 tablets by mouth once daily. - coenzyme Q10 (COQ-10) 100 mg cap capsule Take 1 capsule by mouth twice daily. - vitamin D3-folic acid 5,000 unit- 1 mg tab Take 5,000 Units by mouth once daily. - multivitamin tablet Take 1 tablet by mouth once daily. Upholsterer Inside: Addendum Therapy (PT/OT/Speech/Resp) ID: [id number] 02/22/2025 12:20 PM Author: BEATRIZ MELISSA Signed by BEATRIZ MELISSA PT on 02/22/2025 at 12:20 PM * * * This document replaces document [id number] * * * Document text: Program_ID:[id number] Access Code: [email or web address] URL: [email or web address]/ Date: 02-22-2025 Prepared By: Mikal Bailey Program Notes Exercises - Face Pulls - 1 x daily - 7 x weekly - 3 sets - 10 reps - Shoulder extension with resistance - Neutral - 1 x daily - 7 x weekly - 3 sets - 10 reps - Shoulder External Rotation and Scapular Retraction with Resistance - 1 x daily - 7 x weekly - 3 sets - 10 reps - Standing Shoulder Row with Anchored Resistance - 1 x daily - 7 x weekly - 3 sets - 10 reps - Prone Shoulder Horizontal Abduction with Thumbs Up - 1 x daily - 7 x weekly - 3 sets - 10 reps - Prone Scapular Retraction Y - 1 x daily - 7 x weekly - 3 sets - 10 reps - Prone Scapular Slide with Shoulder Extension - 1 x daily - 7 x weekly - 3 sets - 10 reps - Supine Sciatic Nerve Millen - 1 x daily - 7 x weekly - 3 sets - 10 reps - Prone Quadriceps Stretch with Strap - 3 x daily - 7 x weekly - 1 sets - 3 reps -- Normal [facility] THERAPY NTon 02-22-2025 THERAPY NT HNO ID: [id number] Author: BEATRIZ MELISSA PT Service: ? Author Type: Physical Therapist Type: Therapy (PT/OT/Speech/Resp) Filed: 02/22/2025 12:20 Note Text: Program_ID:[id number] Access Code: [email or web address] URL: [email or web address] [employer]/ Date: 02-22-2025 Prepared By: Mikal Bailey Program Notes Exercises - Face Pulls - 1 x daily - 7 x weekly - 3 sets - 10 reps - Shoulder extension with resistance - Neutral - 1 x daily - 7 x weekly - 3 sets - 10 reps - Shoulder External Rotation and Scapular Retraction with Resistance - 1 x daily - 7 x weekly - 3 sets - 10 reps - Standing Shoulder Row with Anchored Resistance - 1 x daily - 7 x weekly - 3 sets - 10 reps - Prone Shoulder Horizontal Abduction with Thumbs Up - 1 x daily - 7 x weekly - 3 sets - 10 reps - Prone Scapular Retraction Y - 1 x daily - 7 x weekly - 3 sets - 10 reps - Prone Scapular Slide with Shoulder Extension - 1 x daily - 7 x weekly - 3 sets - 10 reps - Supine Sciatic Nerve Millen - 1 x daily - 7 x weekly - 3 sets - 10 reps - Prone Quadriceps Stretch with Strap - 3 x daily - 7 x weekly - 1 sets - 3 reps Normal [facility] CNTHERAPYon 02-15-2025 CNTHERAPY OT/PT/Speech Visit (PTWS) KIRA ADHIKARI ([id number]) 1985 F [facility] Date Time Provider Department 02/15/25 12:30 PM BEATRIZ MELISSA PTWS Date Time Provider Department [place] 02/15/2025 12:30 PM [id number], SEAN PTWS Dashawn Scherer Reason for Visit: Physical Therapy [503] Primary Visit Diagnosis:Low back pain, unspecified back pain laterality, unspecified chronicity, unspecified whether sciatica present [M54.50] Other Visit Diagnoses:Radiculopath y, cervical region [M54.12] Spinal stenosis of cervical region [M48.02] Allergies As of Date: 02/15/2025 Noted Allergy Reaction DILAUDID (HYDROMORPHONE) 08/06/2016 9 - Itching FENTANYL 08/06/2016 9 - Itching SULFA (SULFONAMIDE ANTIBIOTICS) 08/06/2016 2 - Rash Date Reviewed: 02/15/2025 Reviewed by: Wanda English OA - Fully Assessed Prescriptions as of 02/16/2025 - progesterone micronized (PROMETRIUM) 100 mg capsule Take 1 capsule by mouth daily at bedtime. - fremanezumab-vfrm (AJOVY AUTOINJECTOR) 225 mg/1.5 mL auto-injector Inject 4.5 mL under the skin every 3 months. - dihydroergotamine (TRUDHESA) 0.725 mg/pump act. (4 mg/mL) nasal spray Prime with 4 pumps before use. 1 spray in each nostril at migraine onset. May repeat once in 1 hour if needed. No more than 2 doses/24 hours and 3 doses/week. A complete dose is 2 sprays: 1 spray in each nostril. - predniSONE (DELTASONE) 10 mg tablet Take 3 tablets by mouth daily for 1 week, then 2 tablets daily by mouth for 1 week , then 1 tablet by mouth daily for 1 week, then stop. Please take with food. - valACYclovir (VALTREX) 1 gram tablet Take 1 tablet by mouth once daily. - buPROPion SR (WELLBUTRIN SR) 150 mg 12 hr tablet Take 1 tablet by mouth two times a day. - leflunomide (ARAVA) 20 mg tablet TAKE 1 TABLET BY MOUTH EVERY DAY - rosuvastatin (CRESTOR) 5 mg tablet Take 1 tablet by mouth once daily. - abatacept (ORENCIA CLICKJECT) 125 mg/mL auto-injector Inject 125mg (1 pen) subcutaneously one time a week. - tirzepatide (MOUNJARO) 15 mg/0.5 mL pen injector Inject 15 mg subcutaneously one time a week. - Diclofenac Potassium (CAMBIA) 50 mg pwpk Take 1 Packet by mouth as needed for migraine headache. Can repeat dose in 2 hours, no more than 2 doses per day, or 2 days per week - Rrzdtlxw2-Libhae4-Iexe p therm. (VSL#3) 112.5 billion cell cap Take 2 capsules by mouth daily at bedtime. - ondansetron (ZOFRAN) 4 mg tablet Take 1 tablet by mouth every 12 hours as needed for nausea/vomiting. - clobetasol (TEMOVATE) 0.05 % ointment Apply 1 application to affected area two times a day. - Magnesium Citrate 150mg (Pure Encapsulations) Take 4 capsules daily. - riboflavin, vitamin B2, (VITAMIN B-2) 100 mg tab Take 4 tablets by mouth once daily. - coenzyme Q10 (COQ-10) 100 mg cap capsule Take 1 capsule by mouth twice daily. - vitamin D3-folic acid 5,000 unit- 1 mg tab Take 5,000 Units by mouth once daily. - multivitamin tablet Take 1 tablet by mouth once daily. Normal [facility] EMG(NEURO/NI)on 02-11-2025 Results can be seen in attached scanned documents. If you are a patient reviewing this test result, call the doctor who ordered the test with any questions. [facility] CNTHERAPYon 02-08-2025 CNTHERAPY OT/PT/Speech Visit (PTWS) KIRA ADHIKARI ([id number]) 1985 F [facility] Date Time Provider Department 02/08/25 12:30 PM BEATRIZ MELISSA PTKALEIGH Date Time Provider Department Center 02/08/2025 12:30 PM [id number], SEAN PTWS Dashawn Scherer Reason for Visit: Physical Therapy [503] Primary Visit Diagnosis:Low back pain, unspecified back pain laterality, unspecified chronicity, unspecified whether sciatica present [M54.50] Other Visit Diagnoses:Radiculopath y, cervical region [M54.12] Spinal stenosis of cervical region [M48.02] Allergies As of Date: 02/08/2025 Noted Allergy Reaction DILAUDID (HYDROMORPHONE) 08/06/2016 9 - Itching FENTANYL 08/06/2016 9 - Itching SULFA (SULFONAMIDE ANTIBIOTICS) 08/06/2016 2 - Rash Date Reviewed: 02/04/2025 Reviewed by: Janiya Ziegler APRN.[employer] - Fully Assessed Prescriptions as of 02/08/2025 - progesterone micronized (PROMETRIUM) 100 mg capsule Take 1 capsule by mouth daily at bedtime. - fremanezumab-vfrm (AJOVY AUTOINJECTOR) 225 mg/1.5 mL auto-injector Inject 4.5 mL under the skin every 3 months. - dihydroergotamine (TRUDHESA) 0.725 mg/pump act. (4 mg/mL) nasal spray Prime with 4 pumps before use. 1 spray in each nostril at migraine onset. May repeat once in 1 hour if needed. No more than 2 doses/24 hours and 3 doses/week. A complete dose is 2 sprays: 1 spray in each nostril. - predniSONE (DELTASONE) 10 mg tablet Take 3 tablets by mouth daily for 1 week, then 2 tablets daily by mouth for 1 week , then 1 tablet by mouth daily for 1 week, then stop. Please take with food. - valACYclovir (VALTREX) 1 gram tablet Take 1 tablet by mouth once daily. - buPROPion SR (WELLBUTRIN SR) 150 mg 12 hr tablet Take 1 tablet by mouth two times a day. - leflunomide (ARAVA) 20 mg tablet TAKE 1 TABLET BY MOUTH EVERY DAY - rosuvastatin (CRESTOR) 5 mg tablet Take 1 tablet by mouth once daily. - abatacept (ORENCIA CLICKJECT) 125 mg/mL auto-injector Inject 125mg (1 pen) subcutaneously one time a week. - tirzepatide (MOUNJARO) 15 mg/0.5 mL pen injector Inject 15 mg subcutaneously one time a week. - Diclofenac Potassium (CAMBIA) 50 mg pwpk Take 1 Packet by mouth as needed for migraine headache. Can repeat dose in 2 hours, no more than 2 doses per day, or 2 days per week - Qxycfhre2-Gudhyz7-Fooc p therm. (VSL#3) 112.5 billion cell cap Take 2 capsules by mouth daily at bedtime. - ondansetron (ZOFRAN) 4 mg tablet Take 1 tablet by mouth every 12 hours as needed for nausea/vomiting. - clobetasol (TEMOVATE) 0.05 % ointment Apply 1 application to affected area two times a day. - Magnesium Citrate 150mg (Pure Encapsulations) Take 4 capsules daily. - riboflavin, vitamin B2, (VITAMIN B-2) 100 mg tab Take 4 tablets by mouth once daily. - coenzyme Q10 (COQ-10) 100 mg cap capsule Take 1 capsule by mouth twice daily. - vitamin D3-folic acid 5,000 unit- 1 mg tab Take 5,000 Units by mouth once daily. - multivitamin tablet Take 1 tablet by mouth once daily. Normal [facility] CNOVon 02-04-2025 CNOV Office Visit (GENSWS ) KIRA ADHIKARI ([id number]) 1985 F [facility] Date Time Provider Department 02/04/25 11:30 AM JANIYA ZIEGLER During your visit today, we recorded the following information about you: Temperature Pulse Respiration Blood pressure 98.9 degrees 98/minute 12/minute 114/76 Weight Height Last Period 61.2 kg 1.651 m 01/31/25 Janiya Ziegler APRN.[employer] 02/04/2025 11:05 AM Signed HISTORY AND PHYSICAL Kira Adhikari : 1985 REFERRING PHYSICIAN: Roxanna Nunes [address] [place] [id number] CHIEF COMPLAINT: Patient presents with: Consult HPI: Kira is a 39 year old female referred for endoscopy. Kira notes recent increase in chest pain/ reflux. She had a cardiac work up including ECHO which was negative. Kira has fentanyl listed as an allergy on her list d/t itching. She has had IV fentanyl AND IV benadryl multiple times for injections under moderate sedation with no problem- she would like to proceed in ASC. Kira notes heartburn. -mostly in her chest -not triggered by anything specific -has had relief with pepto or pepcid Kira notes recent history of dysphagia. -carbonated beverages and solids- feels like she can't get it down and she needs to throw it back up Kira notes a history of ulcers/ peptic ulcer disease. -after using doxycycline over 10 years ago Kira also notes PCP ordered serum H. Pylori which returned positive. She has had this test multiple times in the past and this is the first time it has been positive. Kira notes hx of GERD AND SIBO in the past that was treated with Rifaximin for 4-6 weeks with good relief. Kira's medical history is significant for inflammatory arthritis, migraines, and PCOS. Kira has undergone prior endoscopy. > 10 years ago Current Outpatient Medications Medication Sig progesterone micronized (PROMETRIUM) 100 mg capsule Take 1 capsule by mouth daily at bedtime. fremanezumab-vfrm (AJOVY AUTOINJECTOR) 225 mg/1.5 mL auto-injector Inject 4.5 mL under the skin every 3 months. dihydroergotamine (TRUDHESA) 0.725 mg/pump act. (4 mg/mL) nasal spray Prime with 4 pumps before use. 1 spray in each nostril at migraine onset. May repeat once in 1 hour if needed. No more than 2 doses/24 hours and 3 doses/week. A complete dose is 2 sprays: 1 spray in each nostril. predniSONE (DELTASONE) 10 mg tablet Take 3 tablets by mouth daily for 1 week, then 2 tablets daily by mouth for 1 week , then 1 tablet by mouth daily for 1 week, then stop. Please take with food. valACYclovir (VALTREX) 1 gram tablet Take 1 tablet by mouth once daily. buPROPion SR (WELLBUTRIN SR) 150 mg 12 hr tablet Take 1 tablet by mouth two times a day. leflunomide (ARAVA) 20 mg tablet TAKE 1 TABLET BY MOUTH EVERY DAY rosuvastatin (CRESTOR) 5 mg tablet Take 1 tablet by mouth once daily. abatacept (ORENCIA CLICKJECT) 125 mg/mL auto-injector Inject 125mg (1 pen) subcutaneously one time a week. tirzepatide (MOUNJARO) 15 mg/0.5 mL pen injector Inject 15 mg subcutaneously one time a week. Diclofenac Potassium (CAMBIA) 50 mg pwpk Take 1 Packet by mouth as needed for migraine headache. Can repeat dose in 2 hours, no more than 2 doses per day, or 2 days per week Ykafqssp4-Plbaom1-Cwzn p therm. (VSL#3) 112.5 billion cell cap Take 2 capsules by mouth daily at bedtime. ondansetron (ZOFRAN) 4 mg tablet Take 1 tablet by mouth every 12 hours as needed for nausea/vomiting. Magnesium Citrate 150mg (Pure Encapsulations) Take 4 capsules daily. riboflavin, vitamin B2, (VITAMIN B-2) 100 mg tab Take 4 tablets by mouth once daily. coenzyme Q10 (COQ-10) 100 mg cap capsule Take 1 capsule by mouth twice daily. vitamin D3-folic acid 5,000 unit- 1 mg tab Take 5,000 Units by mouth once daily. multivitamin tablet Take 1 tablet by mouth once daily. clobetasol (TEMOVATE) 0.05 % ointment Apply 1 application to affected area two times a day. No current facility-administered medications for this visit. 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 Normal [facility] KIRA [facility]HIK[facility]I ([id number]) 1985 [facility] Date Time Provider Department 02/04[facility]25 [facility] During your visit today, we recorded the following information about you: Denis Hays 02/04/2025 9:33 AM Signed 03-16-2025 EGD Dashawn Allergies As of Date: 02/04/2025 Noted Allergy Reaction DILAUDID (HYDROMORPHONE) 08/06/2016 9 - Itching FENTANYL 08/06/2016 9 - Itching SULFA (SULFONAMIDE ANTIBIOTICS) 08/06/2016 2 - Rash Date Reviewed: 02/04/2025 Reviewed by: Toney, Janiya, BEAUTY CULTURIST.MILLED RICE BROKER - Fully Assessed Reason for Visit: 03-16-2025 EGD Dashawn [Other] Prescriptions as of 03/18/2025 - omeprazole (PRILOSEC) 40 mg capsule Take 1 capsule by mouth once daily. - ondansetron (ZOFRAN) 8 mg tablet Take 1 tablet by mouth every 8 hours as needed for nausea/vomiting. - carisoprodol (SOMA) 350 mg tablet Take 1 tablet by mouth three times a day as needed for pain or muscle spasms. - progesterone micronized (PROMETRIUM) 100 mg capsule Take 1 capsule by mouth daily at bedtime. - fremanezumab-vfrm (AJOVY AUTOINJECTOR) 225 mg/1.5 mL auto-injector Inject 4.5 mL under the skin every 3 months. - dihydroergotamine (TRUDHESA) 0.725 mg/pump act. (4 mg/mL) nasal spray Prime with 4 pumps before use. 1 spray in each nostril at migraine onset. May repeat once in 1 hour if needed. No more than 2 doses/24 hours and 3 doses/week. A complete dose is 2 sprays: 1 spray in each nostril. - predniSONE (DELTASONE) 10 mg tablet Take 3 tablets by mouth daily for 1 week, then 2 tablets daily by mouth for 1 week , then 1 tablet by mouth daily for 1 week, then stop. Please take with food. - valACYclovir (VALTREX) 1 gram tablet Take 1 tablet by mouth once daily. - buPROPion SR (WELLBUTRIN SR) 150 mg 12 hr tablet Take 1 tablet by mouth two times a day. - leflunomide (ARAVA) 20 mg tablet TAKE 1 TABLET BY MOUTH EVERY DAY - rosuvastatin (CRESTOR) 5 mg tablet Take 1 tablet by mouth once daily. - abatacept (ORENCIA CLICKJECT) 125 mg/mL auto-injector Inject 125mg (1 pen) subcutaneously one time a week. - tirzepatide (MOUNJARO) 15 mg/0.5 mL pen injector Inject 15 mg subcutaneously one time a week. - Diclofenac Potassium (CAMBIA) 50 mg pwpk Take 1 Packet by mouth as needed for migraine headache. Can repeat dose in 2 hours, no more than 2 doses per day, or 2 days per week - Dtucfeim2-Qkuepp2-Pqjz p therm. (VSL#3) 112.5 billion cell cap Take 2 capsules by mouth daily at bedtime. - ondansetron (ZOFRAN) 4 mg tablet Take 1 tablet by mouth every 12 hours as needed for nausea/vomiting. - clobetasol (TEMOVATE) 0.05 % ointment Apply 1 application to affected area two times a day. - Magnesium Citrate 150mg (Pure Encapsulations) Take 4 capsules daily. - riboflavin, vitamin B2, (VITAMIN B-2) 100 mg tab Take 4 tablets by mouth once daily. - coenzyme Q10 (COQ-10) 100 mg cap capsule Take 1 capsule by mouth twice daily. - vitamin D3-folic acid 5,000 unit- 1 mg tab Take 5,000 Units by mouth once daily. - multivitamin tablet Take 1 tablet by mouth once daily. Problem List As Of Date 02/04/2025 Noted Resolved H/O cervical spine surgery [Z98.890] 10/03/2016 Chronic neck pain [M54.2, G89.29] 03/29/2019 Hx of neck surgery [Z98.890] 01/13/2020 Radiculopathy, cervical region [M54.12] 01/13/2020 Arm numbness left [R20.0] 01/13/2020 Clenching of teeth [R19.8] 01/10/2021 Myofascial muscle pain [M79.18] 01/10/2021 Centric occlusion maximum intercuspation discre*01/10/2021 Arthralgia of left temporomandibular joint [M26*01/10/2021 Hyponatremia [E87.1] 03/21/2021 Acute metabolic encephalopathy [G93.41] 03/21/2021 Migraine headache with aura [G43.109] 03/21/2021 Water intoxication [E87.79] 03/22/2021 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, G89.29] 03/22/2021 Inflammatory arthritis [M19.90] 03/22/2021 Somatic dysfunction of rib [M99.08] 04/23/2021 Somatic dysfunction of spine, thoracic [M99.02] 04/23/2021 Somatic dysfunction of spine, cervical [M99.01] 04/23/2021 Acute right-sided thoracic back pain [M54.6] 04/23/2021 Neck pain [M54.2] 04/23/2021 Chronic migraine without aura, with intractable*07/18/2022 Right hip impingement syndrome [M25.851] 08/09/2022 BMI 30.0-30.9,adult [Z68.30] 10/05/2022 06/06/2023 Impaired fasting glucose [R73.01] 10/05/2022 Dyslipidemia [E78.5] 10/23/2022 PCOS (polycystic ovarian syndrome) [E28.2] 10/23/2022 Obesity, Class I, BMI 30-34.9 [E66.811] 10/23/2022 06/06/2023 PVC's (premature ventricular contractions) [I49*06/06/2023 Lichen sclerosus [L90.0] 11/21/2020 Hypercholesteremia [E78.00] Acute post-operative pain [G89.18] 06/12/2023 Vitamin D deficiency [E55.9] 06/26/2023 Intractable chronic migraine without aura and w*07/22/2023 Chronic migraine without aura, intractable, wit*07/22/2023 Migraine with aura and without status migrainos*07/22/2023 Cervicalgia [M54.2] 07/22/2023 (more content not included)... Normal [facility] CNTHERAPYon 02-01-2025 CNTHERAPY OT/PT/Speech Visit (PTWS) KIRA ADHIKARI ([id number]) 1985 F [facility] Date Time Provider Department 02/01/25 12:30 PM BEATRIZ MELISSA Date Time Provider Department Center 02/01/2025 12:30 PM [id number] MELISSA Reason for Visit: Physical Therapy [503] Primary Visit Diagnosis:Spinal stenosis of cervical region [M48.02] Other Visit Diagnoses:Radiculopath y, cervical region [M54.12] Low back pain, unspecified back pain laterality, unspecified chronicity, unspecified whether sciatica present [M54.50] Allergies As of Date: 02/01/2025 Noted Allergy Reaction DILAUDID (HYDROMORPHONE) 08/06/2016 9 - Itching FENTANYL 08/06/2016 9 - Itching SULFA (SULFONAMIDE ANTIBIOTICS) 08/06/2016 2 - Rash Date Reviewed: 12/08/2024 Reviewed by: Alysia Crisostomo LPN - Fully Assessed Prescriptions as of 02/01/2025 - progesterone micronized (PROMETRIUM) 100 mg capsule Take 1 capsule by mouth daily at bedtime. - fremanezumab-vfrm (AJOVY AUTOINJECTOR) 225 mg/1.5 mL auto-injector Inject 4.5 mL under the skin every 3 months. - dihydroergotamine (TRUDHESA) 0.725 mg/pump act. (4 mg/mL) nasal spray Prime with 4 pumps before use. 1 spray in each nostril at migraine onset. May repeat once in 1 hour if needed. No more than 2 doses/24 hours and 3 doses/week. A complete dose is 2 sprays: 1 spray in each nostril. - predniSONE (DELTASONE) 10 mg tablet Take 3 tablets by mouth daily for 1 week, then 2 tablets daily by mouth for 1 week , then 1 tablet by mouth daily for 1 week, then stop. Please take with food. - valACYclovir (VALTREX) 1 gram tablet Take 1 tablet by mouth once daily. - buPROPion SR (WELLBUTRIN SR) 150 mg 12 hr tablet Take 1 tablet by mouth two times a day. - leflunomide (ARAVA) 20 mg tablet TAKE 1 TABLET BY MOUTH EVERY DAY - rosuvastatin (CRESTOR) 5 mg tablet Take 1 tablet by mouth once daily. - abatacept (ORENCIA CLICKJECT) 125 mg/mL auto-injector Inject 125mg (1 pen) subcutaneously one time a week. - tirzepatide (MOUNJARO) 15 mg/0.5 mL pen injector Inject 15 mg subcutaneously one time a week. - Diclofenac Potassium (CAMBIA) 50 mg pwpk Take 1 Packet by mouth as needed for migraine headache. Can repeat dose in 2 hours, no more than 2 doses per day, or 2 days per week - Agbgfzff1-Aspegu6-Ihgo p therm. (VSL#3) 112.5 billion cell cap Take 2 capsules by mouth daily at bedtime. - ondansetron (ZOFRAN) 4 mg tablet Take 1 tablet by mouth every 12 hours as needed for nausea/vomiting. - clobetasol (TEMOVATE) 0.05 % ointment Apply 1 application to affected area two times a day. - Magnesium Citrate 150mg (Pure Encapsulations) Take 4 capsules daily. - riboflavin, vitamin B2, (VITAMIN B-2) 100 mg tab Take 4 tablets by mouth once daily. - coenzyme Q10 (COQ-10) 100 mg cap capsule Take 1 capsule by mouth twice daily. - vitamin D3-folic acid 5,000 unit- 1 mg tab Take 5,000 Units by mouth once daily. - multivitamin tablet Take 1 tablet by mouth once daily. Upholsterer Inside: Therapy (PT/OT/Speech/Resp) ID: [id number] 02/01/2025 12:46 PM Author: BEATRIZ MELISSA Signed by BEATRIZ MELISSA PT on 02/01/2025 at 12:46 PM Document text: Program_ID:[id number] Access Code: [email or web address] URL: [email or web address] Date: 02-01-2025 Prepared By: Mikal Bailey Program Notes Exercises - Face Pulls - 1 x daily - 7 x weekly - 3 sets - 10 reps - Shoulder extension with resistance - Neutral - 1 x daily - 7 x weekly - 3 sets - 10 reps - Shoulder External Rotation and Scapular Retraction with Resistance - 1 x daily - 7 x weekly - 3 sets - 10 reps - Standing Shoulder Row with Anchored Resistance - 1 x daily - 7 x weekly - 3 sets - 10 reps - Prone Shoulder Horizontal Abduction with Thumbs Up - 1 x daily - 7 x weekly - 3 sets - 10 reps - Prone Scapular Retraction Y - 1 x daily - 7 x weekly - 3 sets - 10 reps - Prone Scapular Slide with Shoulder Extension - 1 x daily - 7 x weekly - 3 sets - 10 reps -- Normal [facility] THERAPY NTon 02-01-2025 THERAPY NT HNO ID: [id number] Author: BEATRIZ MELISSA PT Service: ? Author Type: Physical Therapist Type: Therapy (PT/OT/Speech/Resp) Filed: 02/01/2025 12:46 Note Text: Program_ID:[id number] Access Code: [email or web address] URL: [email or web address] Date: 02-01-2025 Prepared By: Mikal Bailey Program Notes Exercises - Face Pulls - 1 x daily - 7 x weekly - 3 sets - 10 reps - Shoulder extension with resistance - Neutral - 1 x daily - 7 x weekly - 3 sets - 10 reps - Shoulder External Rotation and Scapular Retraction with Resistance - 1 x daily - 7 x weekly - 3 sets - 10 reps - Standing Shoulder Row with Anchored Resistance - 1 x daily - 7 x weekly - 3 sets - 10 reps - Prone Shoulder Horizontal Abduction with Thumbs Up - 1 x daily - 7 x weekly - 3 sets - 10 reps - Prone Scapular Retraction Y - 1 x daily - 7 x weekly - 3 sets - 10 reps - Prone Scapular Slide with Shoulder Extension - 1 x daily - 7 x weekly - 3 sets - 10 reps Normal [facility] CNOVon 01-31-2025 CNOV Office Visit (OBGYWM ) KIRA ADHIKARI ([id number]) 1985 F [facility] Date Time Provider Department 01/31/25 3:15 PM EULA RM During your visit today, we recorded the following information about you: Eula Rm APRN.CNM 01/31/2025 3:48 PM Signed Kira Adhikari is a 39 year old female who presents for problem visit PMS. HPI: Presents today with complaint of PMS symptoms. Feels increased mood swings, sadness, and fatigue. Notices this mid cycle and will last until into menses. Does not notice at other times. This has become more frequent in the last 5 years but feels it is worsening. Wanting to try progesterone cyclical and see if this would be beneficial. No history of anxiety, depression, or other mental health disorders. Denies any thoughts of self harm SI or HI. Menses are regular monthly, last about 5-7 days. Will have heavy flow and dysmenorrhea but dealing with this at this time. Denies any hot flashes or night sweats. OB History No obstetric history on file. 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 PAST SURGICAL HISTORY Procedure Laterality Date CONIZATION OF CERVIX, LEEP NECK SURGERY HX 08/19/2016 Left C7 foraminotomy, Left C6-7 diskectomy - w/ benefit though continues to have pain (left side of neck, shooting pains in arm, left wrist and distal numbness) PAST SURGICAL HISTORY OF at age of 6 years left inguinal hernia repair PAST SURGICAL HISTORY OF Tonsillectomy FAMILY HISTORY Problem Relation Age of Onset Hyperlipidemia Mother baseline TC 300's, smoker Diabetes Mother type 1 autoimune Obesity Father Hyperlipidemia Father Hypertension Father Prostate Cancer Father Social History Tobacco Use Smoking status: Never Smokeless tobacco: Never Vaping Use Vaping status: Never Used Substance Use Topics Alcohol use: Not Currently Comment: none since 2019 Drug use: No Current Outpatient Medications Medication Sig fremanezumab-vfrm (AJOVY AUTOINJECTOR) 225 mg/1.5 mL auto-injector Inject 4.5 mL under the skin every 3 months. dihydroergotamine (TRUDHESA) 0.725 mg/pump act. (4 mg/mL) nasal spray Prime with 4 pumps before use. 1 spray in each nostril at migraine onset. May repeat once in 1 hour if needed. No more than 2 doses/24 hours and 3 doses/week. A complete dose is 2 sprays: 1 spray in each nostril. predniSONE (DELTASONE) 10 mg tablet Take 3 tablets by mouth daily for 1 week, then 2 tablets daily by mouth for 1 week , then 1 tablet by mouth daily for 1 week, then stop. Please take with food. valACYclovir (VALTREX) 1 gram tablet Take 1 tablet by mouth once daily. buPROPion SR (WELLBUTRIN SR) 150 mg 12 hr tablet Take 1 tablet by mouth two times a day. leflunomide (ARAVA) 20 mg tablet TAKE 1 TABLET BY MOUTH EVERY DAY rosuvastatin (CRESTOR) 5 mg tablet Take 1 tablet by mouth once daily. abatacept (ORENCIA CLICKJECT) 125 mg/mL auto-injector Inject 125mg (1 pen) subcutaneously one time a week. tirzepatide (MOUNJARO) 15 mg/0.5 mL pen injector Inject 15 mg subcutaneously one time a week. Diclofenac Potassium (CAMBIA) 50 mg pwpk Take 1 Packet by mouth as needed for migraine headache. Can repeat dose in 2 hours, no more than 2 doses per day, or 2 days per week Ezexspgi4-Qplcyt1-Clab p therm. (VSL#3) 112.5 billion cell cap Take 2 capsules by mouth daily at bedtime. ondansetron (ZOFRAN) 4 mg tablet Take 1 tablet by mouth every 12 hours as needed for nausea/vomiting. clobetasol (TEMOVATE) 0.05 % ointment Apply 1 application to affected area two times a day. Magnesium Citrate 150mg (Pure Encapsulations) Take 4 capsules daily. riboflavin, vitamin B2, (VITAMIN B-2) 100 mg tab Take 4 tablets by mouth once daily. coenzyme Q10 (COQ-10) 100 mg cap capsule Take 1 capsule by mouth twice daily. vitamin D3-folic acid 5,000 unit- 1 mg tab Take 5,000 Units by mouth once daily. multivitamin tablet Take 1 tablet by mouth once daily. No current facility-administered medications for this visit. Allergies As of Date: 01/31/2025 Allergen Noted Reaction DILAUDID [HYDROMORPHONE] 08/06/2016 Itching FENTANYL 08/06/2016 Itching SULFA (SULFONAMIDE ANTIBIOTICS) 08/06/2016 Rash Fully Assessed 12/08/2024 REVIEW OF SYSTEMS Abdomen: No bloating, early satiety, indigestion, or increased flatulence. No abdominal pain, nausea, vom (more content not included)... Normal [facility] CNPNon 01-25-2025 CNPN Telephone (WYMNS2) KIRA ADHIKARI ([id number]) 1985 [facility] Date Time Provider Department 01/25/25 SUNIL OWEN [facility] During your visit today, we recorded the following information about you: Mara Capone 01/25/2025 8:35 AM Signed Ambulatory Pharmacy Prior Authorization Note Provider Intervention Required?: Yes- [facility] requires prior authorization to be submitted by the provider. EHP Form (Prescription Drug Formulary) Drug: dihydroergotamine (TRUDHESA) 0.725 mg/pump act. (4 mg/mL) nasal spray Formulary Alternatives: N/A Additional Information: n/a Please fax completed paperwork to [phone] or email to [email or web address]. [facility] cannot process prior authorizations sent via CoverCerahelixs. For questions relating to this submission, please contact [facility] at [phone] Renetta Epstein MA 02/17/2025 12:54 PM Signed Prior authorization has been submitted via Zumigousign Included clinical notes from 12/30/2024. Medication: Trudhesa (dihydroergotamine mesylate) Dosage/frequency: 8mL/30 days Insurance Name: [employer]/EHP King (if available): NA Was authorization approved, denied, or still pending? PENDING If approved, effective dates: NA through CHRISTA Aguilera Mara Downing 03/17/2025 2:44 PM Signed Rec'd GENERIC approval via fax. Approval scanned to chart via OnBase Patient informed via Animail. Allergies As of Date: 01/25/2025 Noted Allergy Reaction DILAUDID (HYDROMORPHONE) 08/06/2016 9 - Itching FENTANYL 08/06/2016 9 - Itching SULFA (SULFONAMIDE ANTIBIOTICS) 08/06/2016 2 - Rash Date Reviewed: 12/08/2024 Reviewed by: Alysia Crisostomo LPN - Fully Assessed Reason for Visit: Insurance Authorization [[id number]] Cmt: BRIAN TORRES, Jessica [Other] Prescriptions as of 03/17/2025 - omeprazole (PRILOSEC) 40 mg capsule Take 1 capsule by mouth once daily. - ondansetron (ZOFRAN) 8 mg tablet Take 1 tablet by mouth every 8 hours as needed for nausea/vomiting. - carisoprodol (SOMA) 350 mg tablet Take 1 tablet by mouth three times a day as needed for pain or muscle spasms. - progesterone micronized (PROMETRIUM) 100 mg capsule Take 1 capsule by mouth daily at bedtime. - fremanezumab-vfrm (AJOVY AUTOINJECTOR) 225 mg/1.5 mL auto-injector Inject 4.5 mL under the skin every 3 months. - dihydroergotamine (TRUDHESA) 0.725 mg/pump act. (4 mg/mL) nasal spray Prime with 4 pumps before use. 1 spray in each nostril at migraine onset. May repeat once in 1 hour if needed. No more than 2 doses/24 hours and 3 doses/week. A complete dose is 2 sprays: 1 spray in each nostril. - predniSONE (DELTASONE) 10 mg tablet Take 3 tablets by mouth daily for 1 week, then 2 tablets daily by mouth for 1 week , then 1 tablet by mouth daily for 1 week, then stop. Please take with food. - valACYclovir (VALTREX) 1 gram tablet Take 1 tablet by mouth once daily. - buPROPion SR (WELLBUTRIN SR) 150 mg 12 hr tablet Take 1 tablet by mouth two times a day. - leflunomide (ARAVA) 20 mg tablet TAKE 1 TABLET BY MOUTH EVERY DAY - rosuvastatin (CRESTOR) 5 mg tablet Take 1 tablet by mouth once daily. - abatacept (ORENCIA CLICKJECT) 125 mg/mL auto-injector Inject 125mg (1 pen) subcutaneously one time a week. - tirzepatide (MOUNJARO) 15 mg/0.5 mL pen injector Inject 15 mg subcutaneously one time a week. - Diclofenac Potassium (CAMBIA) 50 mg pwpk Take 1 Packet by mouth as needed for migraine headache. Can repeat dose in 2 hours, no more than 2 doses per day, or 2 days per week - Xfvcvpcu3-Rlpeje9-Xpdr p therm. (VSL#3) 112.5 billion cell cap Take 2 capsules by mouth daily at bedtime. - ondansetron (ZOFRAN) 4 mg tablet Take 1 tablet by mouth every 12 hours as needed for nausea/vomiting. - clobetasol (TEMOVATE) 0.05 % ointment Apply 1 application to affected area two times a day. - Magnesium Citrate 150mg (Pure Encapsulations) Take 4 capsules daily. - riboflavin, vitamin B2, (VITAMIN B-2) 100 mg tab Take 4 tablets by mouth once daily. - coenzyme Q10 (COQ-10) 100 mg cap capsule Take 1 capsule by mouth twice daily. - vitamin D3-folic acid 5,000 unit- 1 mg tab Take 5,000 Units by mouth once daily. - multivitamin tablet Take 1 tablet by mouth once daily. Problem List As Of Date 01/25/2025 Noted Resolved H/O cervical spine surgery [Z98.890] 10/03/2016 Chronic neck pain [M54.2, G89.29] 03/29/2019 Hx of neck surgery [Z98.890] 01/13/2020 Radiculopathy, cervical region [M54.12] 01/13/2020 Arm numbness left [R20.0] 01/13/2020 Clenching of teeth [R19.8] 01/10/2021 Myofascial muscle pain [M79.18] 01/10/2021 Centric occlusion maximum intercuspation discre*01/10/2021 Arthralgia of left temporomandibular joint [M26*01/10/2021 Hyponatremia [E87.1] 03/21/2021 Acute metabolic encephalopathy [G93.41] 03/21/2021 Migrai (more content not included)... Normal [facility] CNTHERAPYon 01-25-2025 CNTHERAPY OT/PT/Speech Visit (PTWS) KIRA ADHIKARI ([id number]) 1985 F [facility] Date Time Provider Department 01/25/25 12:30 PM BEATRIZ MELISSA PTKALEIGH Date Time Provider Department Center 01/25/2025 12:30 PM [id number], SEAN PTKALEIGH Scherer Reason for Visit: Physical Therapy [503] Primary Visit Diagnosis:Spinal stenosis of cervical region [M48.02] Other Visit Diagnosis:Radiculopath y, cervical region [M54.12] Allergies As of Date: 01/25/2025 Noted Allergy Reaction DILAUDID (HYDROMORPHONE) 08/06/2016 9 - Itching FENTANYL 08/06/2016 9 - Itching SULFA (SULFONAMIDE ANTIBIOTICS) 08/06/2016 2 - Rash Date Reviewed: 12/08/2024 Reviewed by: Alysia Crisostomo LPN - Fully Assessed Prescriptions as of 01/25/2025 - fremanezumab-vfrm (AJOVY AUTOINJECTOR) 225 mg/1.5 mL auto-injector Inject 4.5 mL under the skin every 3 months. - dihydroergotamine (TRUDHESA) 0.725 mg/pump act. (4 mg/mL) nasal spray Prime with 4 pumps before use. 1 spray in each nostril at migraine onset. May repeat once in 1 hour if needed. No more than 2 doses/24 hours and 3 doses/week. A complete dose is 2 sprays: 1 spray in each nostril. - carisoprodol (SOMA) 350 mg tablet Take 1 tablet by mouth three times a day as needed for up to 30 days. FOR PAIN OR MUSCLE SPASMS. - predniSONE (DELTASONE) 10 mg tablet Take 3 tablets by mouth daily for 1 week, then 2 tablets daily by mouth for 1 week , then 1 tablet by mouth daily for 1 week, then stop. Please take with food. - valACYclovir (VALTREX) 1 gram tablet Take 1 tablet by mouth once daily. - buPROPion SR (WELLBUTRIN SR) 150 mg 12 hr tablet Take 1 tablet by mouth two times a day. - leflunomide (ARAVA) 20 mg tablet TAKE 1 TABLET BY MOUTH EVERY DAY - rosuvastatin (CRESTOR) 5 mg tablet Take 1 tablet by mouth once daily. - abatacept (ORENCIA CLICKJECT) 125 mg/mL auto-injector Inject 125mg (1 pen) subcutaneously one time a week. - tirzepatide (MOUNJARO) 15 mg/0.5 mL pen injector Inject 15 mg subcutaneously one time a week. - Diclofenac Potassium (CAMBIA) 50 mg pwpk Take 1 Packet by mouth as needed for migraine headache. Can repeat dose in 2 hours, no more than 2 doses per day, or 2 days per week - Gffrotth5-Ehjkdb7-Pjxp p therm. (VSL#3) 112.5 billion cell cap Take 2 capsules by mouth daily at bedtime. - ondansetron (ZOFRAN) 4 mg tablet Take 1 tablet by mouth every 12 hours as needed for nausea/vomiting. - clobetasol (TEMOVATE) 0.05 % ointment Apply 1 application to affected area two times a day. - Magnesium Citrate 150mg (Pure Encapsulations) Take 4 capsules daily. - riboflavin, vitamin B2, (VITAMIN B-2) 100 mg tab Take 4 tablets by mouth once daily. - coenzyme Q10 (COQ-10) 100 mg cap capsule Take 1 capsule by mouth twice daily. - vitamin D3-folic acid 5,000 unit- 1 mg tab Take 5,000 Units by mouth once daily. - multivitamin tablet Take 1 tablet by mouth once daily. Normal [facility] CNTHERAPYon 01-18-2025 CNTHERAPY OT/PT/Speech Visit (PTWS) ADHIKARIKIRA ([id number]) 1985 F [facility] Date Time Provider Department 01/18/25 12:30 PM BEATRIZ MELISSA PTKALEIGH Date Time Provider Department Center 01/18/2025 12:30 PM [id number] MELISSA Reason for Visit: Physical Therapy [503] Primary Visit Diagnosis:Spinal stenosis of cervical region [M48.02] Other Visit Diagnosis:Radiculopath y, cervical region [M54.12] Allergies As of Date: 01/18/2025 Noted Allergy Reaction DILAUDID (HYDROMORPHONE) 08/06/2016 9 - Itching FENTANYL 08/06/2016 9 - Itching SULFA (SULFONAMIDE ANTIBIOTICS) 08/06/2016 2 - Rash Date Reviewed: 12/08/2024 Reviewed by: Alysia Crisostomo LPN - Fully Assessed Prescriptions as of 01/18/2025 - fremanezumab-vfrm (AJOVY AUTOINJECTOR) 225 mg/1.5 mL auto-injector Inject 4.5 mL under the skin every 3 months. - dihydroergotamine (TRUDHESA) 0.725 mg/pump act. (4 mg/mL) nasal spray Prime with 4 pumps before use. 1 spray in each nostril at migraine onset. May repeat once in 1 hour if needed. No more than 2 doses/24 hours and 3 doses/week. A complete dose is 2 sprays: 1 spray in each nostril. - carisoprodol (SOMA) 350 mg tablet Take 1 tablet by mouth three times a day as needed for up to 30 days. FOR PAIN OR MUSCLE SPASMS. - predniSONE (DELTASONE) 10 mg tablet Take 3 tablets by mouth daily for 1 week, then 2 tablets daily by mouth for 1 week , then 1 tablet by mouth daily for 1 week, then stop. Please take with food. - valACYclovir (VALTREX) 1 gram tablet Take 1 tablet by mouth once daily. - buPROPion SR (WELLBUTRIN SR) 150 mg 12 hr tablet Take 1 tablet by mouth two times a day. - leflunomide (ARAVA) 20 mg tablet TAKE 1 TABLET BY MOUTH EVERY DAY - rosuvastatin (CRESTOR) 5 mg tablet Take 1 tablet by mouth once daily. - abatacept (ORENCIA CLICKJECT) 125 mg/mL auto-injector Inject 125mg (1 pen) subcutaneously one time a week. - tirzepatide (MOUNJARO) 15 mg/0.5 mL pen injector Inject 15 mg subcutaneously one time a week. - Diclofenac Potassium (CAMBIA) 50 mg pwpk Take 1 Packet by mouth as needed for migraine headache. Can repeat dose in 2 hours, no more than 2 doses per day, or 2 days per week - Tjxzybrv2-Kykkps5-Sagq p therm. (VSL#3) 112.5 billion cell cap Take 2 capsules by mouth daily at bedtime. - ondansetron (ZOFRAN) 4 mg tablet Take 1 tablet by mouth every 12 hours as needed for nausea/vomiting. - clobetasol (TEMOVATE) 0.05 % ointment Apply 1 application to affected area two times a day. - Magnesium Citrate 150mg (Pure Encapsulations) Take 4 capsules daily. - riboflavin, vitamin B2, (VITAMIN B-2) 100 mg tab Take 4 tablets by mouth once daily. - coenzyme Q10 (COQ-10) 100 mg cap capsule Take 1 capsule by mouth twice daily. - vitamin D3-folic acid 5,000 unit- 1 mg tab Take 5,000 Units by mouth once daily. - multivitamin tablet Take 1 tablet by mouth once daily. Normal [facility] CNTHERAPYon 01-11-2025 CNTHERAPY OT/PT/Speech Visit (PTWS) KIRA ADHIKARI ([id number]) 1985 F [facility] Date Time Provider Department 01/11/25 12:30 PM BEATRIZ MELISSA PTWS Date Time Provider Department Center 01/11/2025 12:30 PM [id number], SEAN PTWS Dashawn Scherer Reason for Visit: PT Re-eval [891] Primary Visit Diagnosis:Spinal stenosis of cervical region [M48.02] Other Visit Diagnosis:Radiculopath y, cervical region [M54.12] Allergies As of Date: 01/11/2025 Noted Allergy Reaction DILAUDID (HYDROMORPHONE) 08/06/2016 9 - Itching FENTANYL 08/06/2016 9 - Itching SULFA (SULFONAMIDE ANTIBIOTICS) 08/06/2016 2 - Rash Date Reviewed: 12/08/2024 Reviewed by: Alysia Crisostomo LPN - Fully Assessed Prescriptions as of 01/13/2025 - fremanezumab-vfrm (AJOVY AUTOINJECTOR) 225 mg/1.5 mL auto-injector Inject 4.5 mL under the skin every 3 months. - dihydroergotamine (TRUDHESA) 0.725 mg/pump act. (4 mg/mL) nasal spray Prime with 4 pumps before use. 1 spray in each nostril at migraine onset. May repeat once in 1 hour if needed. No more than 2 doses/24 hours and 3 doses/week. A complete dose is 2 sprays: 1 spray in each nostril. - carisoprodol (SOMA) 350 mg tablet Take 1 tablet by mouth three times a day as needed for up to 30 days. FOR PAIN OR MUSCLE SPASMS. - predniSONE (DELTASONE) 10 mg tablet Take 3 tablets by mouth daily for 1 week, then 2 tablets daily by mouth for 1 week , then 1 tablet by mouth daily for 1 week, then stop. Please take with food. - valACYclovir (VALTREX) 1 gram tablet Take 1 tablet by mouth once daily. - buPROPion SR (WELLBUTRIN SR) 150 mg 12 hr tablet Take 1 tablet by mouth two times a day. - leflunomide (ARAVA) 20 mg tablet TAKE 1 TABLET BY MOUTH EVERY DAY - rosuvastatin (CRESTOR) 5 mg tablet Take 1 tablet by mouth once daily. - abatacept (ORENCIA CLICKJECT) 125 mg/mL auto-injector Inject 125mg (1 pen) subcutaneously one time a week. - tirzepatide (MOUNJARO) 15 mg/0.5 mL pen injector Inject 15 mg subcutaneously one time a week. - Diclofenac Potassium (CAMBIA) 50 mg pwpk Take 1 Packet by mouth as needed for migraine headache. Can repeat dose in 2 hours, no more than 2 doses per day, or 2 days per week - Gjffzvin7-Xdghde7-Eoap p therm. (VSL#3) 112.5 billion cell cap Take 2 capsules by mouth daily at bedtime. - ondansetron (ZOFRAN) 4 mg tablet Take 1 tablet by mouth every 12 hours as needed for nausea/vomiting. - clobetasol (TEMOVATE) 0.05 % ointment Apply 1 application to affected area two times a day. - Magnesium Citrate 150mg (Pure Encapsulations) Take 4 capsules daily. - riboflavin, vitamin B2, (VITAMIN B-2) 100 mg tab Take 4 tablets by mouth once daily. - coenzyme Q10 (COQ-10) 100 mg cap capsule Take 1 capsule by mouth twice daily. - vitamin D3-folic acid 5,000 unit- 1 mg tab Take 5,000 Units by mouth once daily. - multivitamin tablet Take 1 tablet by mouth once daily. Upholsterer Inside: Therapy (PT/OT/Speech/Resp) ID: [id number] 01/11/2025 12:50 PM Author: BEATRIZ MELISSA Signed by BEATRIZ MELISSA PT on 01/11/2025 at 12:51 PM Document text: Program_ID:[id number] Access Code: [email or web address] URL: [email or web address] Date: 01-11-2025 Prepared By: Mikal Bailey Program Notes Exercises - Face Pulls - 1 x daily - 7 x weekly - 3 sets - 10 reps - Shoulder extension with resistance - Neutral - 1 x daily - 7 x weekly - 3 sets - 10 reps - Shoulder External Rotation and Scapular Retraction with Resistance - 1 x daily - 7 x weekly - 3 sets - 10 reps - Standing Shoulder Row with Anchored Resistance - 1 x daily - 7 x weekly - 3 sets - 10 reps - Prone Shoulder Horizontal Abduction with Thumbs Up - 1 x daily - 7 x weekly - 3 sets - 10 reps - Prone Scapular Retraction Y - 1 x daily - 7 x weekly - 3 sets - 10 reps - Prone Scapular Slide with Shoulder Extension - 1 x daily - 7 x weekly - 3 sets - 10 reps -- Normal [facility] THERAPY NTon 01-11-2025 THERAPY NT HNO ID: [id number] Author: BEATRIZ MELISSA PT Service: ? Author Type: Physical Therapist Type: Therapy (PT/OT/Speech/Resp) Filed: 01/11/2025 12:51 Note Text: Program_ID:[id number] Access Code: [email or web address] URL: [email or web address] Date: 01-11-2025 Prepared By: Mikal Bailey Program Notes Exercises - Face Pulls - 1 x daily - 7 x weekly - 3 sets - 10 reps - Shoulder extension with resistance - Neutral - 1 x daily - 7 x weekly - 3 sets - 10 reps - Shoulder External Rotation and Scapular Retraction with Resistance - 1 x daily - 7 x weekly - 3 sets - 10 reps - Standing Shoulder Row with Anchored Resistance - 1 x daily - 7 x weekly - 3 sets - 10 reps - Prone Shoulder Horizontal Abduction with Thumbs Up - 1 x daily - 7 x weekly - 3 sets - 10 reps - Prone Scapular Retraction Y - 1 x daily - 7 x weekly - 3 sets - 10 reps - Prone Scapular Slide with Shoulder Extension - 1 x daily - 7 x weekly - 3 sets - 10 reps Normal [facility] CNPNon 01-07-2025 CNPN Telephone ([facility]) KIRA [id number]) 1985 F [facility] Date Time Provider Department 01/07/25 TRACY FUNES MNOPRX During your visit today, we recorded the following information about you: Tracy Funes RN 01/07/2025 10:57 AM Signed [facility] received prescription(s) for ajovy. Benefits investigation was conducted, indicating that a prior authorization is required. All pertinent clinical information was submitted to insurance. Epic- Referral # [id number] Ordering Provider: Sunil Owen DO Murtaugh, Alisha, RN [facility] P: , F: Angie Conde 01/11/2025 9:03 AM Signed Ambulatory Pharmacy Prior Authorization Note Provider Intervention Required?: No- Pharmacy completed on your behalf. Rx Plan: EHP Drug: AJOVY Cover My Meds [place]: N/A Determination: Approved Prior Authorization/Case #: [id number] Prior Authorization Expiration: 01/10/2026 Time to PA Submission in CMM: N/A Time to PA Determination in CMM: N/A Additional Information: PLEASE NOTE: Pt will need follow up office visit to review/document efficacy and tolerability of treatment before prior auth expiration. Please ensure a future follow up appt is scheduled with your patient. This will ensure no interruption in patient's ability to obtain medication refills. Prescriptions will now be processed through [facility] for determination of next steps. For questions relating to this submission, please contact [facility] at [phone] Allergies As of Date: 01/07/2025 Noted Allergy Reaction DILAUDID (HYDROMORPHONE) 08/06/2016 9 - Itching FENTANYL 08/06/2016 9 - Itching SULFA (SULFONAMIDE ANTIBIOTICS) 08/06/2016 2 - Rash Date Reviewed: 12/08/2024 Reviewed by: Alysia Crisostomo LPN - Fully Assessed Reason for Visit: Insurance Authorization [[id number]] ajovy [Other] Prescriptions as of 01/11/2025 - dihydroergotamine (TRUDHESA) 0.725 mg/pump act. (4 mg/mL) nasal spray Prime with 4 pumps before use. 1 spray in each nostril at migraine onset. May repeat once in 1 hour if needed. No more than 2 doses/24 hours and 3 doses/week. A complete dose is 2 sprays: 1 spray in each nostril. - carisoprodol (SOMA) 350 mg tablet Take 1 tablet by mouth three times a day as needed for up to 30 days. FOR PAIN OR MUSCLE SPASMS. - predniSONE (DELTASONE) 10 mg tablet Take 3 tablets by mouth daily for 1 week, then 2 tablets daily by mouth for 1 week , then 1 tablet by mouth daily for 1 week, then stop. Please take with food. - valACYclovir (VALTREX) 1 gram tablet Take 1 tablet by mouth once daily. - buPROPion SR (WELLBUTRIN SR) 150 mg 12 hr tablet Take 1 tablet by mouth two times a day. - leflunomide (ARAVA) 20 mg tablet TAKE 1 TABLET BY MOUTH EVERY DAY - phenazopyridine (PYRIDIUM) 200 mg tablet Take 1 tablet by mouth three times a day as needed (for UTI symptoms). - rosuvastatin (CRESTOR) 5 mg tablet Take 1 tablet by mouth once daily. - phenazopyridine (PYRIDIUM) 200 mg tablet Take 1 tablet by mouth three times a day as needed. - abatacept (ORENCIA CLICKJECT) 125 mg/mL auto-injector Inject 125mg (1 pen) subcutaneously one time a week. - tirzepatide (MOUNJARO) 15 mg/0.5 mL pen injector Inject 15 mg subcutaneously one time a week. - Diclofenac Potassium (CAMBIA) 50 mg pwpk Take 1 Packet by mouth as needed for migraine headache. Can repeat dose in 2 hours, no more than 2 doses per day, or 2 days per week - Mpvksqjc4-Lverrc0-Ykhi p therm. (VSL#3) 112.5 billion cell cap Take 2 capsules by mouth daily at bedtime. - ondansetron (ZOFRAN) 4 mg tablet Take 1 tablet by mouth every 12 hours as needed for nausea/vomiting. - fremanezumab-vfrm (AJOVY AUTOINJECTOR) 225 mg/1.5 mL auto-injector Inject 4.5 mL under the skin every 3 months. - clobetasol (TEMOVATE) 0.05 % ointment Apply 1 application to affected area two times a day. - Magnesium Citrate 150mg (Pure Encapsulations) Take 4 capsules daily. - riboflavin, vitamin B2, (VITAMIN B-2) 100 mg tab Take 4 tablets by mouth once daily. - coenzyme Q10 (COQ-10) 100 mg cap capsule Take 1 capsule by mouth twice daily. - vitamin D3-folic acid 5,000 unit- 1 mg tab Take 5,000 Units by mouth once daily. - multivitamin tablet Take 1 tablet by mouth once daily. 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 (more content not included)... Normal [facility] 25-hydroxyvitamin D3 [Mass/Vol] 34.2 ng/mL Normal 31.0-80.0 [facility] Comment on above: Order Comment: Speci men Type: BLOOD SPECIMEN Ordering Facility: [facility] Address: [address] [place] [address] Result Comment: Clas sification of 25 OH Vitamin D status: Deficiency/Insufficiency: < or = 30 ng/ml. Sufficiency/Optimal Levels: 31-80 ng/mL Toxicity: > 100 ng/mL. Test performed by chemiluminescent immunoassay. Performed By: #### 1 7859-0, 00726-7, 1989-01 #### [facility] CLIA [id number] [address] [place], [place] [address] [address] [place] APOLIPOPROTEIN A+Bon 025 Apolipoprotein A-I [Mass/Vol] 167 mg/dL Normal >124 [facility] Comment on above: Order Comment: Speci men Type: BLOOD SPECIMEN Ordering Facility: [facility] Address: [address] [place] [address] Performed By: #### 1 7859-0, 03374-2, 1989-01 #### [facility] CLIA [id number] [address] [place] [address] [place] Apolipoprotein B [Mass/Vol] 160 mg/dL High <90 [facility] Comment on above: Order Comment: Rosemaryi men Type: BLOOD SPECIMEN Ordering Facility: [facility] Address: [address] [place] [address] Result Comment: Mode rate Risk: 90-129 mg/dL High Risk: >129 mg/dL Performed By: #### 1 7859-0, , 1989-01 #### [facility] CLIA [id number] [address] [place] [address] [place] APOLIPOPROTEIN B/A-1 RATIO 1.0 High <0.6 [facility] Comment on above: Order Comment: Larry wiley Type: BLOOD SPECIMEN Ordering Facility: [facility] Address: [address] [place] [address] Result Comment: Mode rate Risk: 0.6-0.8 High Risk: >0.8 Performed By: #### 1 7859-0, , 1989-01 #### [facility] CLIA [id number] [address] [place] [address] [place] B. burgdorferi IgG and IgM p wayne (S)on 01-06-2025 B. burgdorferi IgG+IgM Qn (S) Negative Normal Negative [facility] Comment on above: Order Comment: Larry inez Type: BLOOD SPECIMEN Ordering Facility: [facility] Address: [address] [place] [address] Result Comment: Rece nt infection with B. burgdorferi sensu lato cannot be excluded if the specimen collected within four weeks after the onset of signs and symptoms or within six weeks after a known tick exposure. Clinical and epidemiological correlation is required. Performed By: #### 1 7859-0, , 1989-01 #### [facility] CLIA [id number] [address] [place] [address] [place] CBC W Auto Differential pane l (Bld)on 01-06-2025 Basophils (Bld) [#/Vol] 10*3/uL Normal <0.11 [facility] Comment on above: Order Comment: Speci men Type: BLOOD SPECIMEN Ordering Facility: [facility] Address: [address] [place] [address] Performed By: #### 1 7859-0, , 1989-01 #### [facility] CLIA [id number] [address] [place] [address] [place] Basophils/100 WBC (Bld) 0.5 % Normal [facility] Comment on above: Order Comment: Speci men Type: BLOOD SPECIMEN Ordering Facility: [facility] Address: [address] [place] [address] Performed By: #### 1 7859-0, , 1989-01 #### [facility] CLIA [id number] [address] [place] [address] [place] Differential cell count method Nom (Bld) Auto Normal [facility] Comment on above: Order Comment: Speci men Type: BLOOD SPECIMEN Ordering Facility: [facility] Address: [address] [place] [address] Performed By: #### 1 7859-0, , 1989-01 #### [facility] CLIA [id number] [address] [place] [address] [place] Eosinophils (Bld) [#/Vol] 10*3/uL Normal <0.46 [facility] Comment on above: Order Comment: Speci men Type: BLOOD SPECIMEN Ordering Facility: [facility] Address: [address] [place] [address] Performed By: #### 1 7859-0, 79057-0, 1989-01 #### [facility] CLIA [id number] [address] [place] [address] [place] Eosinophils/100 WBC (Bld) 0.5 % Normal [facility] Comment on above: Order Comment: Speci men Type: BLOOD SPECIMEN Ordering Facility: [facility] Address: [address] [place] [address] Performed By: #### 1 7859-0, 40625-7, 1989-01 #### [facility] CLIA [id number] [address] [place] [address] [place] Erythrocyte distribution width (RBC) [Ratio] 12.0 % Normal 11.5-15.0 [facility] Comment on above: Order Comment: Speci men Type: BLOOD SPECIMEN Ordering Facility: [facility] Address: [address] [place] [address] Performed By: #### 1 7859-0, , 1989-01 #### [facility] CLIA [id number] [address] [place] [address] [place] Hematocrit (Bld) [Volume fraction] 45.2 % Normal 36.0-46.0 [facility] Comment on above: Order Comment: Speci men Type: BLOOD SPECIMEN Ordering Facility: [facility] Address: [address] [place] [address] Performed By: #### 1 7859-0, 29258-3, 1989-01 #### [facility] CLIA [id number] [address] [place] [address] [place] Hemoglobin (Bld) [Mass/Vol] 14.9 g/dL Normal 11.5-15.5 [facility] Comment on above: Order Comment: Speci men Type: BLOOD SPECIMEN Ordering Facility: [facility] Address: [address] [place] [address] Performed By: #### 1 7859-0, , 1989-01 #### [facility] CLIA [id number] [address] [place] [address] [place] Immature granulocytes (Bld) [#/Vol] 10*3/uL Normal <0.10 [facility] Comment on above: Order Comment: Speci men Type: BLOOD SPECIMEN Ordering Facility: [facility] Address: [address] [place] [address] Performed By: #### 1 7859-0, , 1989-01 #### [facility] CLIA [id number] [address] [place] [address] [place] Immature granulocytes/100 WBC (Bld) 0.0 % Normal [facility] Comment on above: Order Comment: Speci men Type: BLOOD SPECIMEN Ordering Facility: [facility] Address: [address] [place] [address] Performed By: #### 1 7859-0, , 1989-01 #### [facility] CLIA [id number] [address] [place] [address] [place] Lymphocytes (Bld) [#/Vol] 1.53 10*3/uL Normal 1.00-4.00 [facility] Comment on above: Order Comment: Speci men Type: BLOOD SPECIMEN Ordering Facility: [facility] Address: [address] [place] [address] Performed By: #### 1 7859-0, , 1989-01 #### [facility] CLIA [id number] [address] [place] [address] [place] Lymphocytes/100 WBC (Bld) 36.8 % Normal [facility] Comment on above: Order Comment: Speci men Type: BLOOD SPECIMEN Ordering Facility: [facility] Address: [address] [place] [address] Performed By: #### 1 7859-0, , 1989-01 #### [facility] CLIA [id number] [address] [place] [address] [place] MCH (RBC) [Entitic mass] 31.5 pg Normal 26.0-34.0 [facility] Comment on above: Order Comment: Speci men Type: BLOOD SPECIMEN Ordering Facility: [facility] Address: [address] [place] [address] Performed By: #### 1 7859-0, , 1989-01 #### [facility] CLIA [id number] [address] [place] [address] [place] MCHC (RBC) [Mass/Vol] 33.0 g/dL Normal 30.5-36.0 [facility] Comment on above: Order Comment: Speci men Type: BLOOD SPECIMEN Ordering Facility: [facility] Address: [address] [place] [address] Performed By: #### 1 7859-0, , 1989-01 #### [facility] CLIA [id number] [address] [place] [address] [place] MCV (RBC) [Entitic vol] 95.6 fL Normal 80.0-100.0 [facility] Comment on above: Order Comment: Speci men Type: BLOOD SPECIMEN Ordering Facility: [facility] Address: [address] [place] [address] Performed By: #### 1 7859-0, , 1989-01 #### [facility] CLIA [id number] [address] [place] [address] [place] Monocytes (Bld) [#/Vol] 0.32 10*3/uL Normal <0.87 [facility] Comment on above: Order Comment: Speci men Type: BLOOD SPECIMEN Ordering Facility: [facility] Address: [address] [place] [address] Performed By: #### 1 7859-0, , 1989-01 #### [facility] CLIA [id number] [address] [place] [address] [place] Monocytes/100 WBC (Bld) 7.7 % Normal [facility] Comment on above: Order Comment: Speci men Type: BLOOD SPECIMEN Ordering Facility: [facility] Address: [address] [place] [address] Performed By: #### 1 7859-0, 58444-2, 1989-01 #### [facility] CLIA [id number] [address] [place] [address] [place] Neutrophils (Bld) [#/Vol] 2.27 10*3/uL Normal 1.45-7.50 [facility] Comment on above: Order Comment: Speci men Type: BLOOD SPECIMEN Ordering Facility: [facility] Address: [address] [place] [address] Performed By: #### 1 7859-0, , 1989-01 #### [facility] CLIA [id number] [address] [place] [address] [place] Neutrophils/100 WBC (Bld) 54.5 % Normal [facility] Comment on above: Order Comment: Speci men Type: BLOOD SPECIMEN Ordering Facility: [facility] Address: [address] [place] [address] Performed By: #### 1 7859-0, , 1989-01 #### [facility] CLIA [id number] [address] [place] [address] [place] Nucleated RBC (Bld) [#/Vol] 10*3/uL Normal <0.01 [facility] Comment on above: Order Comment: Speci men Type: BLOOD SPECIMEN Ordering Facility: [facility] Address: [address] [place] [address] Performed By: #### 1 7859-0, , 1989-01 #### [facility] CLIA [id number] [address] [place] [address] [place] Nucleated RBC/100 WBC (Bld) [Ratio] 0.0 /100 WBC Normal [facility] Comment on above: Order Comment: Speci men Type: BLOOD SPECIMEN Ordering Facility: [facility] Address: [address] [place] [address] Performed By: #### 1 7859-0, 30565-4, 1989-01 #### [facility] CLIA [id number] [address] [place] [address] [place] Platelet mean volume (Bld) [Entitic vol] 10.7 fL Normal 9.0-12.7 [facility] Comment on above: Order Comment: Speci men Type: BLOOD SPECIMEN Ordering Facility: [facility] Address: [address] [place] [address] Performed By: #### 1 7859-0, 75326-5, 1989-01 #### [facility] CLIA [id number] [address] [place] [address] [place] Platelets (Bld) [#/Vol] 170 10*3/uL Normal 150-400 [facility] Comment on above: Order Comment: Speci men Type: BLOOD SPECIMEN Ordering Facility: [facility] Address: [address] [place] [address] Performed By: #### 1 7859-0, , 1989-01 #### [facility] CLIA [id number] [address] [place] [address] [place] RBC (Bld) [#/Vol] 4.73 10*6/uL Normal 3.90-5.20 [facility] Comment on above: Order Comment: Speci men Type: BLOOD SPECIMEN Ordering Facility: [facility] Address: [address] [place] [address] Performed By: #### 1 7859-0, 59689-8, 1989-01 #### [facility] CLIA [id number] [address] [place] [address] [place] WBC (Bld) [#/Vol] 4.16 10*3/uL Normal 3.70-11.00 [facility] Comment on above: Order Comment: Speci men Type: BLOOD SPECIMEN Ordering Facility: [facility] Address: [address] [place] [address] Performed By: #### 1 7859-0, 56097-2, 1989-01 #### [facility] CLIA [id number] [address] [place] [address] [place] CRP SerPl-mCncon 01-06-2025 CRP [Mass/Vol] mg/L Normal <0.9 [facility] Comment on above: Order Comment: Speci men Type: BLOOD SPECIMEN Ordering Facility: [facility] Address: [address] [place] [address] Performed By: #### 1 7859-0, , 1989-01 #### [facility] CLIA [id number] [address] [place] [address] [place] Comprehensive metabolic 2000 panelon 01-06-2025 Albumin [Mass/Vol] 5.1 g/dL High 3.9-4.9 [facility] Comment on above: Order Comment: Speci men Type: BLOOD SPECIMEN Ordering Facility: [facility] Address: [address] [place] [address] Performed By: #### 1 7859-0, , 1989-01 #### [facility] CLIA [id number] [address] [place] [address] [place] ALP [Catalytic activity/Vol] 45 U/L Normal 34-123 [facility] Comment on above: Order Comment: Speci men Type: BLOOD SPECIMEN Ordering Facility: [facility] Address: [address] [place] [address] Performed By: #### 1 7859-0, 57926-8, 1989-01 #### [facility] CLIA [id number] [address] [place] [address] [place] ALT [Catalytic activity/Vol] 14 U/L Normal 7-38 [facility] Comment on above: Order Comment: Speci men Type: BLOOD SPECIMEN Ordering Facility: [facility] Address: [address] [place] [address] Performed By: #### 1 7859-0, , 1989-01 #### [facility] CLIA [id number] [address] [place] [address] [place] Anion gap [Moles/Vol] 15 mmol/L Normal 8-15 [facility] Comment on above: Order Comment: Speci men Type: BLOOD SPECIMEN Ordering Facility: [facility] Address: [address] [place] [address] Performed By: #### 1 7859-0, , 1989-01 #### [facility] CLIA [id number] [address] [place] [address] [place] AST [Catalytic activity/Vol] 31 U/L Normal 13-35 [facility] Comment on above: Order Comment: Speci men Type: BLOOD SPECIMEN Ordering Facility: [facility] Address: [address] [place] [address] Performed By: #### 1 7859-0, , 1989-01 #### [facility] CLIA [id number] [address] [place] [address] [place] Bilirubin [Mass/Vol] 0.4 mg/dL Normal 0.2-1.3 [facility] Comment on above: Order Comment: Speci men Type: BLOOD SPECIMEN Ordering Facility: [facility] Address: [address] [place] [address] Performed By: #### 1 7859-0, , 1989-01 #### [facility] CLIA [id number] [address] [place] [address] [place] Calcium [Mass/Vol] 10.2 mg/dL Normal 8.5-10.2 [facility] Comment on above: Order Comment: Speci men Type: BLOOD SPECIMEN Ordering Facility: [facility] Address: [address] [place] [address] Performed By: #### 1 7859-0, , 1989-01 #### [facility] CLIA [id number] [address] [place] [address] [place] Chloride [Moles/Vol] 102 mmol/L Normal 98-107 [facility] Comment on above: Order Comment: Speci men Type: BLOOD SPECIMEN Ordering Facility: [facility] Address: [address] [place] [address] Performed By: #### 1 7859-0, , 1989-01 #### [facility] CLIA [id number] [address] [place] [address] [place] CO2 [Moles/Vol] 23 mmol/L Normal 22-30 [facility] Comment on above: Order Comment: Speci men Type: BLOOD SPECIMEN Ordering Facility: [facility] Address: [address] [place] [address] Performed By: #### 1 7859-0, , 1989-01 #### [facility] CLIA [id number] [address] [place] [address] [place] Creatinine [Mass/Vol] 0.76 mg/dL Normal 0.58-0.96 [facility] Comment on above: Order Comment: Speci men Type: BLOOD SPECIMEN Ordering Facility: [facility] Address: [address] [place] [address] Performed By: #### 1 7859-0, , 1989-01 #### [facility] CLIA [id number] [address] [place] [address] [place] Creatinine and Glomerular filtration rate.predicted panel (S/P/Bld) 102 mL/min/1.73m??? Normal >=60 [facility] Comment on above: Order Comment: Speci men Type: BLOOD SPECIMEN Ordering Facility: [facility] Address: [address] [place] [address] Result Comment: Helen mated Glomerular Filtration Rate (eGFR) is calculated using the 2020 CKD-EPI creatinine equation. This equation utilizes serum creatinine, sex, and age as parameters. The creatinine assay has traceable calibration to isotope dilution-mass spectrometry. Refer to KDIGO guidelines for clinical interpretation. In patients with unstable renal function, e.g. those with acute kidney injury, the eGFR may not accurately reflect actual GFR. Performed By: #### 1 7859-0, 73728-8, 1989-01 #### [facility] CLIA [id number] [address] [place] [address] [place] Glucose [Mass/Vol] 90 mg/dL Normal 74-99 [facility] Comment on above: Order Comment: Larry wiley Type: BLOOD SPECIMEN Ordering Facility: [facility] Address: [address] [place] [address] Result Comment: The [place] Diabetes Association (ADA) provides guidance for cutoff values for fasting glucose and random glucose. The ADA defines fasting as no caloric intake for at least 8 hours. Fasting plasma glucose results between 100 to 125 mg/dL indicate increased risk for diabetes (prediabetes). Fasting plasma glucose results greater than or equal to 126 mg/dL meet the criteria for diagnosis of diabetes. In the absence of unequivocal hyperglycemia, results should be confirmed by repeat testing. In a patient with classic symptoms of hyperglycemia or hyperglycemic crisis, random plasma glucose results greater than or equal to 200 mg/dL meet the criteria for diagnosis of diabetes. Reference: Standards of Medical Care in Diabetes 2016, [place] Diabetes Association. Diabetes Care. 2016.39(Suppl 1). Performed By: #### 1 7859-0, 85630-2, 1989-01 #### [facility] CLIA [id number] [address] [place] [address] [place] Potassium [Moles/Vol] 4.3 mmol/L Normal 3.7-5.1 [facility] Comment on above: Order Comment: Larry wiley Type: BLOOD SPECIMEN Ordering Facility: [facility] Address: [address] [place] [address] Performed By: #### 1 7859-0, 10790-9, 1989-01 #### [facility] CLIA [id number] [address] [place] [address] [place] Protein [Mass/Vol] 8.4 g/dL High 6.3-8.0 [facility] Comment on above: Order Comment: Speci men Type: BLOOD SPECIMEN Ordering Facility: [facility] Address: [address] [place] [address] Performed By: #### 1 7859-0, , 1989-01 #### [facility] [place] [id number] [address] [place] [address] [place] Sodium [Moles/Vol] 140 mmol/L Normal 136-144 [facility] Comment on above: Order Comment: Speci men Type: BLOOD SPECIMEN Ordering Facility: [facility] Address: [address] [place] [address] Performed By: #### 1 7859-0, , 1989-01 #### [facility] IA [id number] [address] [place] [address] [place] Urea nitrogen [Mass/Vol] 12 mg/dL Normal 7-21 [facility] Comment on above: Order Comment: Speci men Type: BLOOD SPECIMEN Ordering Facility: [facility] Address: [address] [place] [address] Performed By: #### 1 7859-0, , 1989-01 #### [facility] IA [id number] [address] [place], [place] [address] [place] DBT Breast - bilateral scree martha 01-06-2025 IMPRESSION: There is no mammographic evidence of malignancy in either breast. Routine screening mammogram is recommended. Annual mammogram will be due in 1 year. BI-RADS Category 1: Negative RISK: Based on the Tyrer-Cuzick (TC) risk assessment model, this patient has a 6.4% lifetime risk of developing breast cancer, meaning they are at average risk for developing breast cancer. However, this is only an estimate based on available history provided on the patient's questionnaire. We encourage all patients to talk with their providers about these results, further recommendations for managing breast health, and appropriate supplemental screening options if the patient has dense breast tissue. Interpreting Radiologist: Dunia Hays M.D. Electronically signed on: 01/06/2025 Ore Buyer: RODOLFO Transcribe Date/Time: Jan 06 2025 9:38A Dictated by: DUNIA HAYS MD This examination was interpreted and the report reviewed and electronically signed by: DUNIA HAYS MD on Jan 06 2025 10:40AM [facility] DIVISION OF RADIOLOGY * * *Final Report* * * DATE OF EXAM: Jan 06 2025 9:58AM [facility] 0582 - GILBERTO SCREENING W ASHLEY / PROCEDURE REASON: Encounter for screening mammogram for breast cancer * * * * Physician Interpretation * * * * RESULT: [facility] [address] [place] [address] #[id number] - GILBERTO SCREENING W ASHLEY HISTORY: 39 year-old patient seen for screening and is asymptomatic in both breasts. Patient states no personal history of breast cancer. Patient states no personal history of other cancers. COMPARISON STUDIES: The present examination has been compared to prior imaging studies dated 04/21/2019 (ultrasound) and 04/21/2019 (mammogram). MAMMOGRAM TECHNIQUE: The study was acquired using full field digital technology and interpreted from soft copy. Digital Breast Tomosynthesis (DBT) images were obtained and used to assist in the interpretation of this examination. MAMMOGRAM FINDINGS: The breasts are heterogeneously dense, which may obscure small masses. No suspicious masses, calcifications or other abnormalities are seen in either breast. There are no significant interval changes. DIVISION OF RADIOLOGY Provider, [facility] - 01/06/2025 * * *Final Report* * * DATE OF EXAM: Jan 06 2025 9:58AM [facility] 0582 - GILBERTO SCREENING W ASHLEY / PROCEDURE REASON: Encounter for screening mammogram for breast cancer * * * * Physician Interpretation * * * * RESULT: [facility] [address] [place] [address] #[id number] - GILBERTO SCREENING W ASHLEY HISTORY: 39 year-old patient seen for screening and is asymptomatic in both breasts. Patient states no personal history of breast cancer. Patient states no personal history of other cancers. COMPARISON STUDIES: The present examination has been compared to prior imaging studies dated 04/21/2019 (ultrasound) and 04/21/2019 (mammogram). MAMMOGRAM TECHNIQUE: The study was acquired using full field digital technology and interpreted from soft copy. Digital Breast Tomosynthesis (DBT) images were obtained and used to assist in the interpretation of this examination. MAMMOGRAM FINDINGS: The breasts are heterogeneously dense, which may obscure small masses. No suspicious masses, calcifications or other abnormalities are seen in either breast. There are no significant interval changes. IMPRESSION IMPRESSION: There is no mammographic evidence of malignancy in either breast. Routine screening mammogram is recommended. Annual mammogram will be due in 1 year. BI-RADS Category 1: Negative RISK: Based on the Tyrer-Cuzick (TC) risk assessment model, this patient has a 6.4% lifetime risk of developing breast cancer, meaning they are at average risk for developing breast cancer. However, this is only an estimate based on available history provided on the patient's questionnaire. We encourage all patients to talk with their providers about these results, further recommendations for managing breast health, and appropriate supplemental screening options if the patient has dense breast tissue. Interpreting Radiologist: Dunia Hays M.D. Electronically signed on: 01/06/2025 Ore Buyer: RODOLFO Transcrishawn Date/Time: Jan 06 2025 9:38A Dictated by: DUNIA HAYS MD This examination was interpreted and the report reviewed and electronically signed by: DUNIA HAYS MD on Jan 06 2025 10:40AM EST [facility] DBT Breast - bilateral scree ningOrdered By: [facility] Provider on 01-06-2025 [facility] ECHOon 01-06-2025 Echocardiography Echocardiography Report: Transthoracic Echo [facility] Date of service: 01/06/2025 9:57:03 AM [employer] Ordering physician: DAVID KILGORE Indication: Chest Pain Technologist: Donna Calloway [facility] Interpreting physician: Clarisa Schwartz MD PATIENT: Name: MRS. KIRA ADHIKARI : 1985 Age: 39 years Gender: F Primary rhythm: sinus. Height: 165.10 cm BSA: 1.70 m Weight: 63.05 kg BMI: 23.1 kg/m Heart rate 77 bpm Blood pressure 118/75 mmHg Technically difficult exam due to body habitus. Color Doppler was utilized to interrogate the cardiac valves assessed and spectral Doppler was utilized to determine the flow velocities and pressure gradients reported in this exam. MEASUREMENTS: Value Indexed Normal Max aortic dimension 2.7 cm Ao < 3.8 Left atrial volume 11 ml (4ch A-L) 7 ml/m Natacha <= 34 LV ID (diastole) 3.8 cm (2D) 2.23 cm/m LV ID (systole) 2.3 cm (2D) 1.38 cm/m IVS, leaflet tips 0.6 cm (2D) Posterior wall thickness 0.8 cm (2D) Left ventricular mass 76 g (2D) 44 g/m LV stroke volume 30 ml (2D 4-ch.) LV end diastolic volume 51 ml (2D 4-ch.) 29.8 ml/m 29<=EDVi<62 LV end systolic volume 21 ml (2D 4-ch.) 12.4 ml/m Ejection Fraction 58 % (2D 4-ch.) EF > 54 FINDINGS: LEFT VENTRICLE The left ventricle is normal in size. Left ventricular systolic function is normal. Normal left ventricular diastolic function. Mitral annular lateral E/e': 4.7. Mitral annular septal E/e': 4.3. Wall Motion: All scored segments are normal. RIGHT VENTRICLE The right ventricle is normal in size. Right ventricular systolic function is normal. RV systolic tissue Doppler velocity is 12.0 cm/s. Tricuspid annular displacement is 1.8 cm. Estimated right atrial pressure is 3 mmHg based on IVC assessment. LEFT ATRIUM The left atrial cavity is normal in size. Pulmonary Veins: The pulmonary venous pattern showed normal systolic flow. RIGHT ATRIUM The right atrial cavity is normal in size. Inferior Vena Cava: The inferior vena cava appears normal measuring 1.2 cm. The vessel decreases greater than 50 percent with inspiration. MITRAL VALVE The mitral valve leaflets are structurally normal. There is no mitral valve regurgitation. The pressure half time is 53 msec. The peak mitral E/A ratio is 0.94. The average mitral E/e' ratio is 4.5. The mitral flow deceleration time is 183 msec. TRICUSPID VALVE The tricuspid valve leaflets are structurally normal. There is no tricuspid valve regurgitation. AORTIC VALVE The aortic valve cusps are structurally normal. There is no aortic valve stenosis. There is no aortic valve regurgitation. Tricuspid aortic valve. The peak gradient is 4 mmHg (peak velocity = 102.6 cm/s). PULMONIC VALVE The pulmonic valve cusps are structurally normal. There is no pulmonic stenosis. There is no pulmonic valve regurgitation. AORTA The visualized aorta is normal in size. Measurements - Mid ascending aorta 2.7 cm. PERICARDIUM There is a trivial pericardial effusion. There is an epicardial fat pad. CONCLUSIONS: - Technically difficult exam due to body habitus. - Exam indication: Chest Pain - The left ventricle is normal in size. Left ventricular systolic function is normal. EF = 58 5% (2D 4-ch.). Normal left ventricular diastolic function. - The right ventricle is normal in size. Right ventricular systolic function is normal. - There are no significant valvular abnormalities. - Exam was compared with the prior echocardiographic exam performed on 07/05/21. There is no significant change. * * * Final * * * [employer] : [id number] Normal [facility] ESR Westergren method (Bld) [Velocity]on 01-06-2025 ESR (Bld) [Velocity] 2 mm/h Normal 0-20 [facility] Comment on above: Order Comment: Speci men Type: BLOOD SPECIMEN Ordering Facility: [facility] Address: [address] [place] [address] Performed By: #### 4 537-7 #### [facility] CLIA [id number] [address] [place] [address] [place] [address] [place] H. pylori IgG IA Qlon 2024 H. PYLORI IGG, QUAL Positive Abnormal Negative [facility] Comment on above: Order Comment: Speci men Type: BLOOD SPECIMEN Ordering Facility: [facility] Address: [address] [place] [address] Result Comment: The result suggests recent or past infection with H. pylori. Clinical correlation is required. Where clinically warranted, follow up testing is suggested including Urea Breath Test or H. pylori stool antigen test. Performed By: #### 1 7859-0, 79994-6, 1989-01 #### [facility] CLIA [id number] [address] [place] [address] [place] HIV 1+2 Ab IA Qlon 5 HIV 1 and 2 Ab IA.rapid Nom (S/P/Bld) Normal [facility] Comment on above: Order Comment: Rosemaryi inez Type: BLOOD SPECIMEN Ordering Facility: [facility] Address: [address] [place] [address] Result Comment: Test not indicated. Performed By: #### 1 7859-0, , 1989-01 #### [facility] CLIA [id number] [address] [place] [address] [place] HIV 1+2 Ab+HIV1 p24 Ag IA Ql Non-Reactive Normal Nonreactive [facility] Comment on above: Order Comment: Larry wiley Type: BLOOD SPECIMEN Ordering Facility: [facility] Address: [address] [place] [address] Performed By: #### 1 7859-0, 63818-4, 1989-01 #### [facility] CLIA [id number] [address] [place] [address] [place] HIV immunoassay testing algorithm interpretation (S/P/Bld) [Interp] Normal [facility] Comment on above: Order Comment: Larry wiley Type: BLOOD SPECIMEN Ordering Facility: [facility] Address: [address] [place] [address] Result Comment: No e vidence of HIV-1 or HIV-2 infection. Should recent infection be suspected, repeat testing may be considered 2-3 weeks after this draw. [place] Rev. Code 3701.243(E): This information has been disclosed to you from confidential records protected from disclosure by state law. ???You shall make no further disclosure of this information without the specific, written, and informed release of the individual to whom it pertains or as otherwise permitted by state law. A general authorization for the release of medical or other information is not sufficient for the purpose of the release of HIV test results or diagnoses. Performed By: #### 1 7859-0, 77744-1, 1989-01 #### [facility] CLIA [id number] [address] [place] [address] [place] GILBERTO SCREENING W TOMOon 01-06 GILBERTO SCREENING W ASHLEY * * *Final Report* * * DATE OF EXAM: Jan 06 2025 9:58AM [facility] 0582 - GILBERTO SCREENING W ASHLEY / PROCEDURE REASON: Encounter for screening mammogram for breast cancer * * * * Physician Interpretation * * * * RESULT: [place] [address] #[id number] - GILBERTO SCREENING W ASHLEY HISTORY: 39 year-old patient seen for screening and is asymptomatic in both breasts. Patient states no personal history of breast cancer. Patient states no personal history of other cancers. COMPARISON STUDIES: The present examination has been compared to prior imaging studies dated 04/21/2019 (ultrasound) and 04/21/2019 (mammogram). MAMMOGRAM TECHNIQUE: The study was acquired using full field digital technology and interpreted from soft copy. Digital Breast Tomosynthesis (DBT) images were obtained and used to assist in the interpretation of this examination. MAMMOGRAM FINDINGS: The breasts are heterogeneously dense, which may obscure small masses. No suspicious masses, calcifications or other abnormalities are seen in either breast. There are no significant interval changes. IMPRESSION: There is no mammographic evidence of malignancy in either breast. Routine screening mammogram is recommended. Annual mammogram will be due in 1 year. BI-RADS Category 1: Negative RISK: Based on the Tyrer-Cuzick (TC) risk assessment model, this patient has a 6.4% lifetime risk of developing breast cancer, meaning they are at average risk for developing breast cancer. However, this is only an estimate based on available history provided on the patient's questionnaire. We encourage all patients to talk with their providers about these results, further recommendations for managing breast health, and appropriate supplemental screening options if the patient has dense breast tissue. Interpreting Radiologist: Dunia Hays M.D. Electronically signed on: 01/06/2025 Ore Buyer: RODOLFO Transcribe Date/Time: Jan 06 2025 9:38A Dictated by: DUNIA HAYS MD This examination was interpreted and the report reviewed and electronically signed by: DUNIA HAYS MD on Jan 06 2025 10:40AM EST [id number] Normal [facility] MR Brain WO and W contrast I Von 01-06-2025 IMPRESSION: Normal brain MRI with intravenous contrast. No imaging findings to explain headaches. No mass or pathologic enhancement. Ore Buyer: KATH Transcribe Date/Time: Jan 06 2025 11:19A Dictated by : LYRIC LACKEY DO This examination was interpreted and the report reviewed and electronically signed by: LYRIC LACKEY DO on Jan 06 2025 11:24AM [facility] DIVISION OF RADIOLOGY * * *Final Report* * * DATE OF EXAM: Jan 06 2025 11:05AM [facility] 0295 - MRI BRAIN WO/W IVCON / PROCEDURE REASON: Thunderclap headache * * * * Physician Interpretation * * * * EXAMINATION: MRI BRAIN WO/W IVCON CLINICAL HISTORY: Thunderclap headache TECHNIQUE: Routine brain MRI protocol without and with contrast including diffusion images. MQ: MRBWOW_2 Contrast: 6 mL Elucirem IV COMPARISON: Brain MRI 03/22/2021 RESULT: Acute Change: There is no evidence of restricted diffusion to suggest an acute infarct. Hemorrhage: No evidence of prior parenchymal hemorrhage on the susceptibility weighted images. Mass Lesion/ Mass Effect: No evidence of an intracranial mass or extra-axial fluid collection. No abnormal parenchymal or leptomeningeal enhancement is noted following contrast administration. No significant mass effect. Chronic Change: The white matter is within normal limits of signal intensity for age. Probable prominent perivascular space in the right subinsular region. Parenchyma: No significant volume loss for age. The brain parenchyma is otherwise within normal limits of signal intensity and morphology. Ventricles: Normal caliber and morphology. Skull Base: Hypothalamic and pituitary region are grossly normal. Craniocervical junction is normal. No significant marrow replacement process. Vasculature: Major intracranial arterial structures, and dural venous sinuses show typical flow void, suggesting patency by spin echo criteria. Other: The visualized paranasal sinuses and mastoid air cells are clear. The orbits and extracranial soft tissues are unremarkable. DIVISION OF RADIOLOGY Provider, Luis Felipe Lakhani [facility] - 01/06/2025 * * *Final Report* * * DATE OF EXAM: Jan 06 2025 11:05AM [facility] 0295 - MRI BRAIN WO/W IVCON / PROCEDURE REASON: Thunderclap headache * * * * Physician Interpretation * * * * EXAMINATION: MRI BRAIN WO/W IVCON CLINICAL HISTORY: Thunderclap headache TECHNIQUE: Routine brain MRI protocol without and with contrast including diffusion images. MQ: MRBWOW_2 Contrast: 6 mL Elucirem IV COMPARISON: Brain MRI 03/22/2021 RESULT: Acute Change: There is no evidence of restricted diffusion to suggest an acute infarct. Hemorrhage: No evidence of prior parenchymal hemorrhage on the susceptibility weighted images. Mass Lesion/ Mass Effect: No evidence of an intracranial mass or extra-axial fluid collection. No abnormal parenchymal or leptomeningeal enhancement is noted following contrast administration. No significant mass effect. Chronic Change: The white matter is within normal limits of signal intensity for age. Probable prominent perivascular space in the right subinsular region. Parenchyma: No significant volume loss for age. The brain parenchyma is otherwise within normal limits of signal intensity and morphology. Ventricles: Normal caliber and morphology. Skull Base: Hypothalamic and pituitary region are grossly normal. Craniocervical junction is normal. No significant marrow replacement process. Vasculature: Major intracranial arterial structures, and dural venous sinuses show typical flow void, suggesting patency by spin echo criteria. Other: The visualized paranasal sinuses and mastoid air cells are clear. The orbits and extracranial soft tissues are unremarkable. IMPRESSION IMPRESSION: Normal brain MRI with intravenous contrast. No imaging findings to explain headaches. No mass or pathologic enhancement. Ore Buyer: KATH Transcribe Date/Time: Jan 06 2025 11:19A Dictated by : LYRIC LACKEY DO This examination was interpreted and the report reviewed and electronically signed by: LYRIC LACKEY DO on Jan 06 2025 11:24AM EST [facility] MR Brain WO and W contrast I VOrdered By: [facility] Provider on 01-06-2025 [facility] MRI BRAIN WO/W IVCONon 01-06 MRI BRAIN WO/W IVCON * * *Final Report* * * DATE OF EXAM: Jan 06 2025 11:05AM [facility] 0295 - MRI BRAIN WO/W IVCON / PROCEDURE REASON: Thunderclap headache * * * * Physician Interpretation * * * * EXAMINATION: MRI BRAIN WO/W IVCON CLINICAL HISTORY: Thunderclap headache TECHNIQUE: Routine brain MRI protocol without and with contrast including diffusion images. MQ: MRBWOW_2 Contrast: 6 mL Elucirem IV COMPARISON: Brain MRI 03/22/2021 RESULT: Acute Change: There is no evidence of restricted diffusion to suggest an acute infarct. Hemorrhage: No evidence of prior parenchymal hemorrhage on the susceptibility weighted images. Mass Lesion/ Mass Effect: No evidence of an intracranial mass or extra-axial fluid collection. No abnormal parenchymal or leptomeningeal enhancement is noted following contrast administration. No significant mass effect. Chronic Change: The white matter is within normal limits of signal intensity for age. Probable prominent perivascular space in the right subinsular region. Parenchyma: No significant volume loss for age. The brain parenchyma is otherwise within normal limits of signal intensity and morphology. Ventricles: Normal caliber and morphology. Skull Base: Hypothalamic and pituitary region are grossly normal. Craniocervical junction is normal. No significant marrow replacement process. Vasculature: Major intracranial arterial structures, and dural venous sinuses show typical flow void, suggesting patency by spin echo criteria. Other: The visualized paranasal sinuses and mastoid air cells are clear. The orbits and extracranial soft tissues are unremarkable. IMPRESSION: Normal brain MRI with intravenous contrast. No imaging findings to explain headaches. No mass or pathologic enhancement. Ore Buyer: PSCB Transcribe Date/Time: Jan 06 2025 11:19A Dictated by : LYRIC LACKEY DO This examination was interpreted and the report reviewed and electronically signed by: LYRIC LACKEY DO on Jan 06 2025 11:24AM EST [id number] Normal [facility] Panel Informationon 01-06 Radiology Study observation (narrative) [facility] OMEGACHECKon 01-06-2025 ARACHIDONIC ACID 13.9 % by wt Normal 8.6-15.6 [facility] Comment on above: Order Comment: Speci men Type: BLOOD SPECIMENOrdering Facility: [facility] Address: [address] [place] [address] Performed By: #### O MEGAC ####[facility] [id number] [address] [place] [address] ARACHIDONIC ACID/EPA RATIO 28.0 Normal 3.7-40.7 [facility] Comment on above: Order Comment: Speci men Type: BLOOD SPECIMENOrdering Facility: [facility] Address: [address] [place] [address] Result Comment: Rece ived Date: Performed By: #### O MEGAC ####[facility] [id number] [address] [place], [place] [id number] DHA 2.1 % by wt Normal 1.4-5.1 [facility] Comment on above: Order Comment: Speci men Type: BLOOD SPECIMENOrdering Facility: [facility] Address: [address] [place] [address] Performed By: #### O MEGAC ####[facility] [id number] [address] [place] [address] DPA 1.1 % by wt Normal 0.8-1.8 [facility] Comment on above: Order Comment: Speci men Type: BLOOD SPECIMENOrdering Facility: [facility] Address: [address] [place] [address] Performed By: #### O MEGAC ####[facility] [id number] [address] [place] [address] EPA 0.5 % by wt Normal 0.2-2.3 [facility] Comment on above: Order Comment: Speci men Type: BLOOD SPECIMENOrdering Facility: [facility] Address: [address] [place] [address] Performed By: #### O MEGAC ####[facility] [id number] [address] [place] [address]4968 LINOLEIC ACID 27.8 % by wt Normal 18.6-29.5 [facility] Comment on above: Order Comment: Speci men Type: BLOOD SPECIMENOrdering Facility: [facility] Address: [address] [place] [address] Performed By: #### O MEGAC ####[facility] [id number] [address] [place] [address] OMEGA-3 TOTAL 3.7 % by wt Normal [facility] Comment on above: Order Comment: Speci men Type: BLOOD SPECIMENOrdering Facility: [facility] Address: [address] [place] [address] Performed By: #### O MEGAC ####[facility] [id number] [address] [place] [address] 25518 OMEGA-6 TOTAL 44.3 % by wt Normal [facility] Comment on above: Order Comment: Speci men Type: BLOOD SPECIMENOrdering Facility: [facility] Address: [address] [place] [address] Result Comment: [facility] measures a number of omega-6 fatty acids with AA and LA being the two most abundant forms reported. Performed By: #### O MEGAC ####[facility] [id number] [address] [place] [address] OMEGA-6/OMEGA-3 RATIO 12.1 Normal 3.7-14.4 [facility] Comment on above: Order Comment: Speci men Type: BLOOD SPECIMENOrdering Facility: [facility] Address: [address] [place], [place] [id number] Performed By: #### O MEGAC ####[facility] [id number] [address] [place], [place] [address] OMEGACHECK 3.7 % by wt Low >5.4 [facility] Comment on above: Order Comment: Speci men Type: BLOOD SPECIMENOrdering Facility: [facility] Address: [address] [place] [address] Result Comment: Incr easing blood levels of long-chain n-3 fatty acids are associated with a lower risk of sudden cardiac (1). Based on the top (75th percentile) and bottom (25th percentile) quartiles of the CHL reference population, the following relative risk categories were established for OmegaCheck: A cut-off of >=5.5% by wt defines a population at optimal relative risk, 3.8-5.4% by wt defines a population at moderate relative risk, and <=3.7% by wt defines a population at high relative risk of sudden cardiac . The totality of the scientific evidence demonstrates that when consumption of fish oils is limited to 3 g/day or less of EPA and DHA, there is no significant risk for increased bleeding time beyond the normal range. A daily dosage of 1 gram of EPA and DHA lowers the circulating triglycerides by about 7-10% within 2 to 3 weeks. (Reference: 1-Leo patricia al. [facility]. 2002; 346: 4790-8395).This test was developed and its analytical performance characteristics have been determined by [facility]. It has not been cleared or approved by the U.S. Food and Drug Administration. This assay has been validated pursuant to the CLIA regulations and is used for clinical purposes. Performed By: #### O MEGA ####[facility] [id number] [place] [address] Reagin and Treponema pallidu m IgG and IgM [Interp]on 01-06-2025 T. pallidum IgG+IgM IA Ql (S) Non-Reactive Normal Nonreactive [facility] Comment on above: Order Comment: Speci men Type: BLOOD SPECIMEN [facility] Address: [address] [place] [address] Performed By: #### 1 7859-0, 10462-2, 1989-01 #### [facility] CLIA [id number] [address] [place] [address] [place] Reagin+T pallidum IgG+IgM Se rPl-Impon 01-06-2025 Reagin and Treponema pallidum IgG and IgM [Interp] Cannot exclude recent Treponemal infection if specimen collected within 7-10 days after appearance of suspect lesions or 2-3 weeks after an exposure. Clinical correlation is required. Normal [facility] Comment on above: Order Comment: Speci men Type: BLOOD SPECIMEN [facility] Address: [address] [place] [address] Performed By: #### 1 7859-0, 00561-2, 1989-01 #### [facility] CLIA [id number] [address] [place] [address] [place] T3Free SerPl-mCncon 01-06-20 25 Free T3 [Mass/Vol] 2.8 pg/mL Normal 2.3-4.1 [facility] Comment on above: Order Comment: Speci men Type: BLOOD SPECIMEN [facility] Address: [address] [place] [address] Performed By: #### 1 7859-0, 42539-0, 1989-01 #### [facility] CLIA [id number] [address] [place] [address] [place] T4 Free SerPl-mCncon 025 Free T4 [Mass/Vol] 1.4 ng/dL Normal 0.9-1.7 [facility] Comment on above: Order Comment: Speci men Type: BLOOD SPECIMEN [facility] Address: [address] [place] [address] Performed By: #### 1 7859-0, 70481-6, 1989-01 #### [facility] CLIA [id number] [address] [place] [address] [place] TSH SerPl-aCncon 01-06-2025 TSH Qn 2.870 m[IU]/L Normal 0.270-4.200 [facility] Comment on above: Order Comment: Speci men Type: BLOOD SPECIMEN [facility] Address: [address] [place] [address] Result Comment: If t he patient is , TSH reference range varies by gestational period: First Trimester (weeks 9-12): 0.180-2.990 mIU/L Second Trimester: 0.110-3.980 mIU/L Third Trimester: 0.480-4.710 mIU/L Yeyo Cheung et al. A Practical Approach for the Verifications and Determination of Site- and Trimester-Specific Reference Intervals for Thyroid Function tests in . Thyroid, 2019:29:3:412-420. Hill E, et al. 2017 Guidelines of the [place] Thy[employer] for the Diagnosis and Management of Thyroid Disease during and the . Thyroid, 2017:27:3:315-389. Performed By: #### 1 7859-0, 89867-2, 1989-01 #### [facility] CLIA [id number] [address] [place] [address] [place] Urinalysis complete panel (U )on 01-06-2025 Bacteria LM.HPF (Urine sed) [#/Area] Negative Normal Negative [facility] Comment on above: Order Comment: Speci men Type: URINE SPECIMEN [facility] Address: [address] [place] [address] Performed By: #### 2 4356-8 #### [facility] CLIA [id number] [address] [place] [address] [place] Bilirubin Ql (U) Negative Normal Negative [facility] Comment on above: Order Comment: Speci men Type: URINE SPECIMEN [facility] Address: [address] [place] [address] Performed By: #### 2 4356-8 #### [facility] CLIA [id number] [address] [place] [address] [place] Clarity (Unsp spec) Clear Normal Clear [facility] Comment on above: Order Comment: Speci men Type: URINE SPECIMEN [facility] Address: [address] [place] [address] Performed By: #### 2 4356-8 #### [facility] CLIA [id number] [address] [place] [address] [place] Color (U) Yellow Normal Yellow [facility] Comment on above: Order Comment: Speci men Type: URINE SPECIMEN [facility] Address: [address] [place] [address] Performed By: #### 2 4356-8 #### [facility] CLIA [id number] [address] [place] [address] [place] Epithelial cells LM.HPF (Urine sed) [#/Area] None Seen Normal [facility] Comment on above: Order Comment: Speci men Type: URINE SPECIMEN [facility] Address: [address] [place] [address] Performed By: #### 2 4356-8 #### [facility] CLIA [id number] [address] [place] [address] [place] Glucose Test strip (U) [Mass/Vol] Negative Normal Negative [facility] Comment on above: Order Comment: Speci men Type: URINE SPECIMEN [facility] Address: [address] [place] [address] Performed By: #### 2 4356-8 #### [facility] CLIA [id number] [address] [place] [address] [place] Hemoglobin Ql (U) Negative Normal Negative [facility] Comment on above: Order Comment: Speci men Type: URINE SPECIMEN [facility] Address: [address] [place] [address] Performed By: #### 2 4356-8 #### [facility] CLIA [id number] [address] [place] [address] [place] Hyaline casts (Urine sed) [#/Area] 0 /[LPF] Normal 0 /LPF [facility] Comment on above: Order Comment: Speci men Type: URINE SPECIMEN [facility] Address: [address] [place] [address] Performed By: #### 2 4356-8 #### [facility] CLIA [id number] [address] [place] [address] [place] Ketones Ql (U) Negative Normal Negative [facility] Comment on above: Order Comment: Speci men Type: URINE SPECIMEN [facility] Address: [address] [place] [address] Performed By: #### 2 4356-8 #### [facility] CLIA [id number] [address] [place] [address] [place] Leukocyte esterase Test strip Ql (U) Negative Normal Negative [facility] Comment on above: Order Comment: Speci men Type: URINE SPECIMEN [facility] Address: [address] [place] [address] Performed By: #### 2 4356-8 #### [facility] CLIA [id number] [address] [place] [address] [place] Nitrite Ql (U) Negative Normal Negative [facility] Comment on above: Order Comment: Speci men Type: URINE SPECIMEN [facility] Address: [address] [place] [address] Performed By: #### 2 4356-8 #### [facility] CLIA [id number] [address] [place] [address] [place] pH (U) 7.0 [pH] Normal <8.5 [facility] Comment on above: Order Comment: Speci men Type: URINE SPECIMEN [facility] Address: [address] [place] [address] Performed By: #### 2 4356-8 #### [facility] CLIA [id number] [address] [place] [address] [place] Protein (U) [Mass/Vol] Negative Normal Negative [facility] Comment on above: Order Comment: Speci men Type: URINE SPECIMEN [facility] Address: [address] [place] [address] Performed By: #### 2 4356-8 #### [facility] CLIA [id number] [address] [place] [address] [place] RBC LM.HPF (Urine sed) [#/Area] 0-2 /HPF Normal 0-2 /HPF [facility] Comment on above: Order Comment: Speci men Type: URINE SPECIMEN [facility] Address: [address] [place] [address] Performed By: #### 2 4356-8 #### [facility] CLIA [id number] [address] [place] [address] [place] Specific gravity (U) [Rel density] 1.009 Normal 1.005-1.030 [facility] Comment on above: Order Comment: Speci men Type: URINE SPECIMEN [facility] Address: [address] [place] [address] Performed By: #### 2 4356-8 #### [facility] CLIA [id number] [address] [place] [address] [place] Urobilinogen Ql (U) 0.2 EU/dL Normal 0.2-1.0 EU/dL [facility] Comment on above: Order Comment: Speci men Type: URINE SPECIMEN [facility] Address: [address] [place] [address] Performed By: #### 2 4356-8 #### [facility] CLIA [id number] [address] [place] [address] [place] WBC LM.HPF (Urine sed) [#/Area] 0-5 /HPF Normal 0-5 /HPF [facility] Comment on above: Order Comment: Speci men Type: URINE SPECIMEN [facility] Address: [address] [place] [address] Performed By: #### 2 4356-8 #### [facility] CLIA [id number] [address] [place] [address] [place] Vit B12 SerPl-mCncon 025 Cobalamin (Vitamin B12) [Mass/Vol] 969 pg/mL Normal 232-1245 [facility] Comment on above: Order Comment: Speci men Type: BLOOD SPECIMEN [facility] Address: [address] [place] [address] Performed By: #### 1 7859-0, 68681-3, 1989-01 #### [facility] CLIA [id number] [address] [place] [address] [place] CNPAngelica 12-31-2024 CNPN Telephone (NHMNS2) KIRA ADHIKARI ([id number]) 1985 F [facility] Date Time Provider Department 12/31/24 SUNIL OWEN [facility] During your visit today, we recorded the following information about you: Cherelle Locke RN 12/31/2024 12:05 PM Signed Botox referral sent to pharmacy. Cherelle Locke RN Allergies As of Date: 12/31/2024 Noted Allergy Reaction DILAUDID (HYDROMORPHONE) 08/06/2016 9 - Itching FENTANYL 08/06/2016 9 - Itching SULFA (SULFONAMIDE ANTIBIOTICS) 08/06/2016 2 - Rash Date Reviewed: 12/08/2024 Reviewed by: Alysia Crisostomo LPN - Fully Assessed Reason for Visit: Referral Request [124] Prescriptions as of 12/31/2024 - dihydroergotamine (TRUDHESA) 0.725 mg/pump act. (4 mg/mL) nasal spray Prime with 4 pumps before use. 1 spray in each nostril at migraine onset. May repeat once in 1 hour if needed. No more than 2 doses/24 hours and 3 doses/week. A complete dose is 2 sprays: 1 spray in each nostril. - carisoprodol (SOMA) 350 mg tablet Take 1 tablet by mouth three times a day as needed for up to 30 days. FOR PAIN OR MUSCLE SPASMS. - predniSONE (DELTASONE) 10 mg tablet Take 3 tablets by mouth daily for 1 week, then 2 tablets daily by mouth for 1 week , then 1 tablet by mouth daily for 1 week, then stop. Please take with food. - valACYclovir (VALTREX) 1 gram tablet Take 1 tablet by mouth once daily. - buPROPion SR (WELLBUTRIN SR) 150 mg 12 hr tablet Take 1 tablet by mouth two times a day. - leflunomide (ARAVA) 20 mg tablet TAKE 1 TABLET BY MOUTH EVERY DAY - phenazopyridine (PYRIDIUM) 200 mg tablet Take 1 tablet by mouth three times a day as needed (for UTI symptoms). - rosuvastatin (CRESTOR) 5 mg tablet Take 1 tablet by mouth once daily. - phenazopyridine (PYRIDIUM) 200 mg tablet Take 1 tablet by mouth three times a day as needed. - abatacept (ORENCIA CLICKJECT) 125 mg/mL auto-injector Inject 125mg (1 pen) subcutaneously one time a week. - tirzepatide (MOUNJARO) 15 mg/0.5 mL pen injector Inject 15 mg subcutaneously one time a week. - Diclofenac Potassium (CAMBIA) 50 mg pwpk Take 1 Packet by mouth as needed for migraine headache. Can repeat dose in 2 hours, no more than 2 doses per day, or 2 days per week - Frcktdyw1-Uqyyqq5-Lnum p therm. (VSL#3) 112.5 billion cell cap Take 2 capsules by mouth daily at bedtime. - ondansetron (ZOFRAN) 4 mg tablet Take 1 tablet by mouth every 12 hours as needed for nausea/vomiting. - fremanezumab-vfrm (AJOVY AUTOINJECTOR) 225 mg/1.5 mL auto-injector Inject 4.5 mL under the skin every 3 months. - clobetasol (TEMOVATE) 0.05 % ointment Apply 1 application to affected area two times a day. - Magnesium Citrate 150mg (Pure Encapsulations) Take 4 capsules daily. - riboflavin, vitamin B2, (VITAMIN B-2) 100 mg tab Take 4 tablets by mouth once daily. - coenzyme Q10 (COQ-10) 100 mg cap capsule Take 1 capsule by mouth twice daily. - vitamin D3-folic acid 5,000 unit- 1 mg tab Take 5,000 Units by mouth once daily. - multivitamin tablet Take 1 tablet by mouth once daily. Problem List As Of Date 12/31/2024 Noted Resolved H/O cervical spine surgery [Z98.890] 10/03/2016 Chronic neck pain [M54.2, G89.29] 03/29/2019 Hx of neck surgery [Z98.890] 01/13/2020 Radiculopathy, cervical region [M54.12] 01/13/2020 Arm numbness left [R20.0] 01/13/2020 Clenching of teeth [R19.8] 01/10/2021 Myofascial muscle pain [M79.18] 01/10/2021 Centric occlusion maximum intercuspation discre*01/10/2021 Arthralgia of left temporomandibular joint [M26*01/10/2021 Hyponatremia [E87.1] 03/21/2021 Acute metabolic encephalopathy [G93.41] 03/21/2021 Migraine headache with aura [G43.109] 03/21/2021 Water intoxication [E87.79] 03/22/2021 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, G89.29] 03/22/2021 Inflammatory arthritis [M19.90] 03/22/2021 Somatic dysfunction of rib [M99.08] 04/23/2021 Somatic dysfunction of spine, thoracic [M99.02] 04/23/2021 Somatic dysfunction of spine, cervical [M99.01] 04/23/2021 Acute right-sided thoracic back pain [M54.6] 04/23/2021 Neck pain [M54.2] 04/23/2021 Chronic migraine without aura, with intractable*07/18/2022 Right hip impingement syndrome [M25.851] 08/09/2022 BMI 30.0-30.9,adult [Z68.30] 10/05/2022 06/06/2023 Impaired fasting glucose [R73.01] 10/05/2022 Dyslipidemia [E78.5] 10/23/2022 PCOS (polycystic ovarian syndrome) [E28.2] 10/23/2022 Obesity, Class I, BMI 30-34.9 [E66.811] 10/23/2022 06/06/2023 PVC's (premature ventricular contractions) [I49*06/06/2023 Lichen sclerosus [L90.0] 11/21/2020 Hypercholesteremia [E78.00] Acute post-operative pain [G89.18] 06/12/2023 Vitamin D deficiency [E55.9] 06/26/2023 Intractable chronic migraine without aura and w*07/22/2023 Chronic migraine without aura, intractable, wit*07/22/2023 Migraine with aura and without status migrainos*07/22/2023 Cervicalgia [M54.2] 07/22/2023 Bilateral occipi (more content not included)... Normal [facility] CNPNon 12-29-2024 CNPN Telephone (MNOPRX) KIRA ADHIKARI ([id number]) 1985 F [facility] Date Time Provider Department 12/29/24 TRACY FUNES MNOPRX During your visit today, we recorded the following information about you: Tracy Funes RN 12/29/2024 3:13 PM Signed Medication Ajovy PA renewal is required; however, there is no follow up office visit to review/document efficacy and tolerability on treatment to justify continuation of therapy. Please send new eRx after office visit to [facility] if plan to continue therapy thereafter. PA renewal will be held until then. Thank you! Tracy Funes RN [facility] P: , F: Allergies As of Date: 12/29/2024 Noted Allergy Reaction DILAUDID (HYDROMORPHONE) 08/06/2016 9 - Itching FENTANYL 08/06/2016 9 - Itching SULFA (SULFONAMIDE ANTIBIOTICS) 08/06/2016 2 - Rash Date Reviewed: 12/08/2024 Reviewed by: Alysia Crisostomo LPN - Fully Assessed Reason for Visit: Insurance Authorization [[id number]] mack [Other] Prescriptions as of 12/29/2024 - predniSONE (DELTASONE) 10 mg tablet Take 3 tablets by mouth daily for 1 week, then 2 tablets daily by mouth for 1 week , then 1 tablet by mouth daily for 1 week, then stop. Please take with food. - valACYclovir (VALTREX) 1 gram tablet Take 1 tablet by mouth once daily. - buPROPion SR (WELLBUTRIN SR) 150 mg 12 hr tablet Take 1 tablet by mouth two times a day. - leflunomide (ARAVA) 20 mg tablet TAKE 1 TABLET BY MOUTH EVERY DAY - phenazopyridine (PYRIDIUM) 200 mg tablet Take 1 tablet by mouth three times a day as needed (for UTI symptoms). - rosuvastatin (CRESTOR) 5 mg tablet Take 1 tablet by mouth once daily. - phenazopyridine (PYRIDIUM) 200 mg tablet Take 1 tablet by mouth three times a day as needed. - abatacept (ORENCIA CLICKJECT) 125 mg/mL auto-injector Inject 125mg (1 pen) subcutaneously one time a week. - tirzepatide (MOUNJARO) 15 mg/0.5 mL pen injector Inject 15 mg subcutaneously one time a week. - methocarbamol (ROBAXIN) 750 mg tablet Take 1 tablet by mouth four times daily. - Diclofenac Potassium (CAMBIA) 50 mg pwpk Take 1 Packet by mouth as needed for migraine headache. Can repeat dose in 2 hours, no more than 2 doses per day, or 2 days per week - Fmzurcmh6-Sncgto1-Aocu p therm. (VSL#3) 112.5 billion cell cap Take 2 capsules by mouth daily at bedtime. - ondansetron (ZOFRAN) 4 mg tablet Take 1 tablet by mouth every 12 hours as needed for nausea/vomiting. - metoprolol succinate ER (TOPROL XL) 25 mg 24 hr tablet Take 1 tablet by mouth daily at bedtime. - fremanezumab-vfrm (AJOVY AUTOINJECTOR) 225 mg/1.5 mL auto-injector Inject 4.5 mL under the skin every 3 months. - clobetasol (TEMOVATE) 0.05 % ointment Apply 1 application to affected area two times a day. - ubrogepant (UBRELVY) 100 mg tablet Take 1 tablet by mouth at migraine onset. May repeat once in 2 hours as needed. - Magnesium Citrate 150mg (Pure Encapsulations) Take 4 capsules daily. - riboflavin, vitamin B2, (VITAMIN B-2) 100 mg tab Take 4 tablets by mouth once daily. - coenzyme Q10 (COQ-10) 100 mg cap capsule Take 1 capsule by mouth twice daily. - vitamin D3-folic acid 5,000 unit- 1 mg tab Take 5,000 Units by mouth once daily. - multivitamin tablet Take 1 tablet by mouth once daily. Problem List As Of Date 12/29/2024 Noted Resolved H/O cervical spine surgery [Z98.890] 10/03/2016 Chronic neck pain [M54.2, G89.29] 03/29/2019 Hx of neck surgery [Z98.890] 01/13/2020 Radiculopathy, cervical region [M54.12] 01/13/2020 Arm numbness left [R20.0] 01/13/2020 Clenching of teeth [R19.8] 01/10/2021 Myofascial muscle pain [M79.18] 01/10/2021 Centric occlusion maximum intercuspation discre*01/10/2021 Arthralgia of left temporomandibular joint [M26*01/10/2021 Hyponatremia [E87.1] 03/21/2021 Acute metabolic encephalopathy [G93.41] 03/21/2021 Migraine headache with aura [G43.109] 03/21/2021 Water intoxication [E87.79] 03/22/2021 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, G89.29] 03/22/2021 Inflammatory arthritis [M19.90] 03/22/2021 Somatic dysfunction of rib [M99.08] 04/23/2021 Somatic dysfunction of spine, thoracic [M99.02] 04/23/2021 Somatic dysfunction of spine, cervical [M99.01] 04/23/2021 Acute right-sided thoracic back pain [M54.6] 04/23/2021 Neck pain [M54.2] 04/23/2021 Chronic migraine without aura, with intractable*07/18/2022 Right hip impingement syndrome [M25.851] 08/09/2022 BMI 30.0-30.9,adult [Z68.30] 10/05/2022 06/06/2023 Impaired fasting glucose [R73.01] 10/05/2022 Dyslipidemia [E78.5] 10/23/2022 PCOS (polycystic ovarian syndrome) [E28.2] 10/23/2022 Obesity, Class I, BMI 30-34.9 [E66.811] 10/23/2022 06/06/2023 PVC's (premature ventricular contractions) [I49*06/06/2023 Lichen sclerosus [L90.0] 11/21/2020 Hypercholesteremia [E78.00] Acute post-operative pain [G89.18 (more content not included)... Normal [facility] 12-10-2024 [facility] Telephone (FAMWS) KIRA ADHIKARI ([id number]) 1985 F [facility] Date Time Provider Department 12/10/24 DAVID KILGORE [facility] During your visit today, we recorded the following information about you: Jennifer Patricia RPh 12/10/2024 6:02 AM Signed [facility] received prescription(s) for valacyclovir from Dr. Kilgore's office. Unfortunately, we do not carry or service non-specialty medications. If you would like the medication to be mailed to the patient by a [facility], please consider sending the Rx to [facility] (phone [phone]). Otherwise, please send the Rx to a [facility] outpatient pharmacy or patient's preferred pharmacy. Thanks, Jennifer Patricia, PharmD, BCACP, BCOP Clinical Pharmacist, Oncology [facility] P: , F: Pool: P [facility] Pool #: [id number] David Kilgore DO 12/10/2024 7:53 AM Signed The following approved medication requests have been transmitted electronically. Requested Prescriptions Signed Prescriptions Disp Refills valACYclovir (VALTREX) 1 gram tablet 90 tablet 3 Sig: Take 1 tablet by mouth once daily. Authorizing Provider: DAVID KILGORE DO Allergies As of Date: 12/10/2024 Noted Allergy Reaction DILAUDID (HYDROMORPHONE) 08/06/2016 9 - Itching FENTANYL 08/06/2016 9 - Itching SULFA (SULFONAMIDE ANTIBIOTICS) 08/06/2016 2 - Rash Date Reviewed: 12/08/2024 Reviewed by: Alysia Crisostomo LPN - Fully Assessed Order(s):valACYclovir (VALTREX) 1 gram tabletTake 1 tablet by mouth once daily.Disp: 90 tabletRfl: 3 Prescriptions as of 12/22/2024 - predniSONE (DELTASONE) 10 mg tablet Take 3 tablets by mouth daily for 1 week, then 2 tablets daily by mouth for 1 week , then 1 tablet by mouth daily for 1 week, then stop. Please take with food. - valACYclovir (VALTREX) 1 gram tablet Take 1 tablet by mouth once daily. - buPROPion SR (WELLBUTRIN SR) 150 mg 12 hr tablet Take 1 tablet by mouth two times a day. - leflunomide (ARAVA) 20 mg tablet TAKE 1 TABLET BY MOUTH EVERY DAY - phenazopyridine (PYRIDIUM) 200 mg tablet Take 1 tablet by mouth three times a day as needed (for UTI symptoms). - rosuvastatin (CRESTOR) 5 mg tablet Take 1 tablet by mouth once daily. - phenazopyridine (PYRIDIUM) 200 mg tablet Take 1 tablet by mouth three times a day as needed. - abatacept (ORENCIA CLICKJECT) 125 mg/mL auto-injector Inject 125mg (1 pen) subcutaneously one time a week. - tirzepatide (MOUNJARO) 15 mg/0.5 mL pen injector Inject 15 mg subcutaneously one time a week. - methocarbamol (ROBAXIN) 750 mg tablet Take 1 tablet by mouth four times daily. - Diclofenac Potassium (CAMBIA) 50 mg pwpk Take 1 Packet by mouth as needed for migraine headache. Can repeat dose in 2 hours, no more than 2 doses per day, or 2 days per week - Uypxqiww6-Osneyj7-Repo p therm. (VSL#3) 112.5 billion cell cap Take 2 capsules by mouth daily at bedtime. - ondansetron (ZOFRAN) 4 mg tablet Take 1 tablet by mouth every 12 hours as needed for nausea/vomiting. - metoprolol succinate ER (TOPROL XL) 25 mg 24 hr tablet Take 1 tablet by mouth daily at bedtime. - fremanezumab-vfrm (AJOVY AUTOINJECTOR) 225 mg/1.5 mL auto-injector Inject 4.5 mL under the skin every 3 months. - clobetasol (TEMOVATE) 0.05 % ointment Apply 1 application to affected area two times a day. - ubrogepant (UBRELVY) 100 mg tablet Take 1 tablet by mouth at migraine onset. May repeat once in 2 hours as needed. - Magnesium Citrate 150mg (Pure Encapsulations) Take 4 capsules daily. - riboflavin, vitamin B2, (VITAMIN B-2) 100 mg tab Take 4 tablets by mouth once daily. - coenzyme Q10 (COQ-10) 100 mg cap capsule Take 1 capsule by mouth twice daily. - vitamin D3-folic acid 5,000 unit- 1 mg tab Take 5,000 Units by mouth once daily. - multivitamin tablet Take 1 tablet by mouth once daily. Problem List As Of Date 12/10/2024 Noted Resolved H/O cervical spine surgery [Z98.890] 10/03/2016 Chronic neck pain [M54.2, G89.29] 03/29/2019 Hx of neck surgery [Z98.890] 01/13/2020 Radiculopathy, cervical region [M54.12] 01/13/2020 Arm numbness left [R20.0] 01/13/2020 Clenching of teeth [R19.8] 01/10/2021 Myofascial muscle pain [M79.18] 01/10/2021 Centric occlusion maximum intercuspation discre*01/10/2021 Arthralgia of left temporomandibular joint [M26*01/10/2021 Hyponatremia [E87.1] 03/21/2021 Acute metabolic encephalopathy [G93.41] 03/21/2021 Migraine headache with aura [G43.109] 03/21/2021 Water intoxication [E87.79] 03/22/2021 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, G89.29] 03/22/2021 Inflammatory arthritis [M19.90] 03/22/2021 Somatic dysfunction of rib [M99.08] 04/23/2021 Somatic dysfunction of spine, thoracic [M99.02] 04/23/2021 Somatic dysfunction of spine, cervic (more content not included)... Normal [facility] Bacteria Ur Culton Bacteria identified Cx Nom (U) CULTURE, URINE: No growth (<1,000 CFU/ml) Normal [facility] Comment on above: Performed By: #### 1 7859-0, 30949-1, 1989-01 #### [facility] CLIA [id number] [address] [place] [address] [place] CNOVon 12-08-2024 CNOV Office Visit (FAMPWS ) KIRA ADHIKARI ([id number]) 1985 F [facility] Date Time Provider Department 12/08/24 12:00 PM DAVID KILGORE FAMPWS During your visit today, we recorded the following information about you: Temperature Pulse Respiration Blood pressure 97 degrees 72/minute 12/minute 120/80 Weight Height 63 kg 1.651 m David Kilgore, 12/08/2024 9:28 PM Signed CC: Kira Adhikari is a 39 year old female who presents to the office for physical HPI: Nerve pain symptoms that she is concerned about and what the cause could be. She states that she has recently stopped the metoprolol due to neuropathy symptoms starting- mostly in the feet and up to the mid tibia area with numbness and tingling b/l. ? Decreased sensation in hands- unsure if related to neuropathy vs. Raynaud's Concerns about brain fog and struggling with extreme fatigue- despite good sleep hygiene- goes to bed at 10 pm and getting at least 8 hours a night + short term memory recall difficulty- difficulty with recall of a word that she is wanting to say. Not able to come up with the words. Has frequent migraine headaches. She is very concerned since these symptoms are worsening and present x months. + chest pain and palpitations. 6 months of worsening symptoms. Does admit to sometimes feeling that she even has symptoms when trying to swallow liquids or food. No dysphagia. No vomiting of nausea. She is taking Mounjaro medication for weight los and weight maintenance. Inflammatory arthritis, RA vs. or other cause, is seeing Personal Lines Advisor and taking Arava and recently started on Orencia Struggling with neck pain and degenerative/herniated disc in cervical spine. Intermittent low back pain and sciatica. 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 PAST SURGICAL HISTORY Procedure Laterality Date CONIZATION OF CERVIX, LEEP NECK SURGERY HX 08/19/2016 Left C7 foraminotomy, Left C6-7 diskectomy - w/ benefit though continues to have pain (left side of neck, shooting pains in arm, left wrist and distal numbness) PAST SURGICAL HISTORY OF at age of 6 years left inguinal hernia repair PAST SURGICAL HISTORY OF Tonsillectomy Social History: Social History Tobacco Use Smoking status: Never Smokeless tobacco: Never Vaping Use Vaping status: Never Used Substance Use Topics Alcohol use: Not Currently Comment: none since 2019 Drug use: No FAMILY HISTORY Problem Relation Age of Onset Hyperlipidemia Mother baseline TC 300's, smoker Diabetes Mother type 1 autoimune Obesity Father Hyperlipidemia Father Hypertension Father Prostate Cancer Father Current Outpatient prescriptions: valACYclovir (VALTREX) 1 gram tablet Take 1 tablet by mouth once daily. iv contrast (will be provided with radiology test) MRI Brain Inject, intravenously, once for 1 dose.No IV access, insert saline lock prior to beginning of sedation, infusion, injection of imaging exam.Discontinue saline lock post exam. If Pt. has a central line or IVAD, may access for administration according to line specific nursing protocol.Once exam is complete flush line and de-access according to line specific nursing protocol in the MR contrast administration guidelines link buPROPion SR (WELLBUTRIN SR) 150 mg 12 hr tablet Take 1 tablet by mouth two times a day. leflunomide (ARAVA) 20 mg tablet TAKE 1 TABLET BY MOUTH EVERY DAY phenazopyridine (PYRIDIUM) 200 mg tablet Take 1 tablet by mouth three times a day as needed (for UTI symptoms). rosuvastatin (CRESTOR) 5 mg tablet Take 1 tablet by mouth once daily. phenazopyridine (PYRIDIUM) 200 mg tablet Take 1 tablet by mouth three times a day as needed. predniSONE (DELTASONE) 10 mg tablet Take by mouth with food.Take 30mg(3 tabs)/day x1 week, then 20mg (2 tabs)/day x1 week, then 10mg (1 tab)/day x1 week, then stop abatacept (ORENCIA CLICKJECT) 125 mg/mL auto-injector Inject 125mg (1 pen) subcutaneously one time a week. tirzepatide (MOUNJARO) 15 mg/0.5 mL pen injector Inject 15 mg subcutaneously one time a week. methocarbamol (ROBAXIN) 750 mg tablet Take 1 tablet by mouth four times daily. Diclofenac Potassium (CAMBIA) 50 mg pwpk Take 1 Packet by mouth as needed for migraine headache. Can repeat dose in 2 hours, no more than 2 doses per day, or 2 days per week Jyksduzw3-Fgtahz9-Fvwt p therm. (VSL#3) 112.5 billion cell cap Take 2 capsules by mouth daily at (more content not included)... Normal [facility] ECG COMPLETEon 12-08-2024 ECG COMPLETE Ventricular Rate : 7 6 BPM Atrial Rate : 76 BPM P-R Interval : 112 ms QRS Duration : 76 ms Q-T Interval : 376 ms QTC Calculation(Bazett) : 423 ms Calculated P [place] : 54 degrees Calculated R [place] : 71 degrees Calculated T [place] : 40 degrees NORMAL SINUS RHYTHM NORMAL ECG Confirmed by MD MCLEAN QARAB ([id number]) on 12/14/2024 4:37:36 PM NAME : KRIA ADHIKARI PID : [id number] : 1985 Gender : Female Race : ORD : [id number] Procedure Date : Dec 08 2024 12:49:52 Edit Date : Dec 14 2024 16:37:37 Diagnosis: NORMAL SINUS RHYTHM NORMAL ECG Confirmed by MD MCLEAN QARAB ([id number]) on 12/14/2024 4:37:36 PM Test Reason : R07.9 Chest pain, unspecified type Location : 185 : WO Overread By : MD MCLEAN QARAB Edited By : MD MCLEAN QARAB Referred By : , Acquired by : [id number], Mack [facility] HISTORY PHYSICALon HISTORY PHYSICAL HNO ID: [id number] Author: JACOBO CHENG MD Service: Pain Management Author Type: Physician Type: H&P Filed: 11/04/2024 07:43 Note Text: HISTORY AND PHYSICAL EXAMINATION PATIENT NAME: Kira Adhikari DATE of SERVICE: 11/04/2024 Kira Adhikari is here for the pain mangement procedure. The patients presents with persistent pain complaints. Kira Adhikari denies any interval changes or new pain complaints or focal neurologic deficits. 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 PAST SURGICAL HISTORY Procedure Laterality Date CONIZATION OF CERVIX, LEEP NECK SURGERY HX 08/19/2016 Left C7 foraminotomy, Left C6-7 diskectomy - w/ benefit though continues to have pain (left side of neck, shooting pains in arm, left wrist and distal numbness) PAST SURGICAL HISTORY OF at age of 6 years left inguinal hernia repair PAST SURGICAL HISTORY OF Tonsillectomy Social History Tobacco Use Smoking status: Never Smokeless tobacco: Never Vaping Use Vaping status: Never Used Substance Use Topics Alcohol use: Not Currently Comment: none since 2019 Drug use: No FAMILY HISTORY Problem Relation Age of Onset Hyperlipidemia Mother baseline TC 300's, smoker Obesity Father Hyperlipidemia Father Hypertension Father ALLERGIES Allergen Reactions Dilaudid [Hydromorp* Itching Fentanyl Itching Sulfa (Sulfonamide * Rash No current facility-administered medications for this encounter. Physical Exam: Performed in conjunction with observation. The patient is alert and oriented x3. The patient is in no acute distress. Neck: Supple. The range of motion is intact. Lungs: clear CVR: RRR. Extremities: no reported edema or erythema. Examination indicates no changes Impression: Cervical disc disorder Cervical radiculopathy Plan: The informed consent has been obtained. The plan is to proceed with the procedure as planned. SIGNATURE: Jacobo Cheng MD DATE: November 04, 2024 TIME: 7:42 AM [facility] OPERATIVE NOon 11-04-2024 OPERATIVE NO HNO ID: [id number] Author: JACOBO CHENG MD Service: Pain Management Author Type: Physician Type: Operative Report Filed: 11/04/2024 08:37 Note Text: PATIENT NAME: Kira Adhikari SERVICE DATE: 11/04/2024 PROCEDURE NOTE PREOPERATIVE DIAGNOSIS(ES) Cervical DDD Cervical spondylosis Cervical disc displacement Cervical radiculopathy POSTOPERATIVE DIAGNOSIS(ES): SAME PROCEDURE: C7-T1 interlaminar cervical epidural steroid injection under fluoroscopy. Installation Technician(s): None, I performed the entire procedure. ANESTHESIA: Local SEDATION: Local only INDICATIONS: The patient presents for cervical epidural steroid injection. Since the last assessment, the patient denies any new pain complaints and denies any focal neurologic deficits. The plan is to proceed with cervical intralaminar epidural steroid injection. The risks and benefits of the procedure were discussed. Specifically, the risks of bleeding, infection, inadvertent dural puncture, spinal heaches, vasovagal reaction, epidural hematoma, partial or permanent nerve injury were covered. The potential side effects of medications used in procedures including increase in pain, headaches, facial redness or warmth (flushing), anxiety or mood swings, sleeplessness, fever, high blood sugar, brief reduction in immunity were discussed. The patient expressed understanding of potential risks and wishes to proceed with the procedure. PROCEDURE NOTE: The patient was brought to the operating room procedure suite. The patient was positioned prone on the fluoroscopy table. Continuous hemodynamic monitoring was initiated including blood pressure, EKG, and pulse oximetry. The posterior cervical area was prepped in sterile fashion. Upon AP and Lateral projection under fluoroscopy, C7-T1 level was identified. Entry point was marked and anesthetized with 5ml of 0.5% Lidocaine. This was followed by insertion of an 18-gauge epidural Tuohy needle, which was inserted and advanced using a loss of resistance technique. Once the epidural space was encountered, aspiration was performed which was negative for blood or CSF. This was followed by injection of Omnipaque 300, a total of 0.25 ml, which revealed a spread along the posterior epidural space. There was no evidence of intravascular or intrathecal flow. This was then followed by a total injection of 1 mL of 0.5% Xylocaine with 40 mg of Depomerol mixture. The patient tolerated the procedure well. The needle was removed intact. Dry dressing was placed over the injection site. The patient was taken to the recovery room in stable condition. EBL: nil Start time: 8:28 AM End time: 8:35 AM I was present the entire time and personally performed the procedure. SIGNATURE: Jacobo Cheng MD DATE: November 04, 2024 TIME: 8:36 AM [facility] 11-02-2024 [facility] Telephone (PNMDNA) KIRA ADHIKARI ([id number]) 1985 [facility] Date Time Provider Department 11/02/24 JACOBO CHENG During your visit today, we recorded the following information about you: Carlotta Constantino RN 11/02/2024 1:02 PM Signed Procedure: C7-T1 RAQUEL Procedure Date: 11/04/2024 Auth Status: DENIED Denial Rationale: Per Rep case was denied due to facility is not IN with provider. Rep advised that we must send a new request with the correct tax id. Patient contacted Pain Management with voicemail on 11/02/2024 at 1221 regarding injection procedure denial. Patient requesting return telephone call. Contacted patient via telephone. Patient would like to attempt to proceed with injection procedure on 11/04/2024. Patient unclear who or why injection procedure cancelled. Secure email sent to [facility] to assist with resubmitting prior authorization. Surgery schedulers contacted to add patient back on injection schedule (patient confirmed to be back on injection schedule). Notified patient of above information. Carlotta Constantino RN 11/03/2024 2:04 PM Addendum Procedure: C7-T1 RAQUEL Procedure Date: 11/04/2024 Auth Status: PENDING Patient contacted Pain Management with voicemail on 11/03/2024 at 1327 regarding authorization status of upcoming procedure on 11/04/2024. Operating room (OR) management also contacted office regarding patient and injection authorization status. Advised management that patient's injection procedure needed to be added back on original date in order to update/resubmit authorization. Per Auth tab, patient will need to sign AFR if proceeding with injection procedure with PENDING authorization. OR management to contact patient. Allergies As of Date: 11/02/2024 Noted Allergy Reaction DILAUDID (HYDROMORPHONE) 08/06/2016 9 - Itching FENTANYL 08/06/2016 9 - Itching SULFA (SULFONAMIDE ANTIBIOTICS) 08/06/2016 2 - Rash Date Reviewed: 07/07/2024 Reviewed by: Elaine Velasco APRN.MILLED RICE BROKER - Fully Assessed Reason for Visit: Insurance Authorization [[id number]] Cmt: Injection Procedure Denial Prescriptions as of 11/03/2024 - valACYclovir (VALTREX) 1 gram tablet Take 1 tablet by mouth once daily. - phenazopyridine (PYRIDIUM) 200 mg tablet Take 1 tablet by mouth three times a day as needed (for UTI symptoms). - rosuvastatin (CRESTOR) 5 mg tablet Take 1 tablet by mouth once daily. - phenazopyridine (PYRIDIUM) 200 mg tablet Take 1 tablet by mouth three times a day as needed. - predniSONE (DELTASONE) 10 mg tablet Take by mouth with food.Take 30mg(3 tabs)/day x1 week, then 20mg (2 tabs)/day x1 week, then 10mg (1 tab)/day x1 week, then stop - acyclovir (ZOVIRAX) 400 mg tablet Take 1 tablet by mouth two times a day. - leflunomide (ARAVA) 20 mg tablet TAKE 1 TABLET BY MOUTH EVERY DAY - abatacept (ORENCIA CLICKJECT) 125 mg/mL auto-injector Inject 125mg (1 pen) subcutaneously one time a week. - tirzepatide (MOUNJARO) 15 mg/0.5 mL pen injector Inject 15 mg subcutaneously one time a week. - methocarbamol (ROBAXIN) 750 mg tablet Take 1 tablet by mouth four times daily. - Diclofenac Potassium (CAMBIA) 50 mg pwpk Take 1 Packet by mouth as needed for migraine headache. Can repeat dose in 2 hours, no more than 2 doses per day, or 2 days per week - pregabalin (LYRICA) 25 mg capsule Take 1 capsule by mouth two times a day as needed for up to 30 days. - Opdobajy1-Qwlcsu8-Xuhg p therm. (VSL#3) 112.5 billion cell cap Take 2 capsules by mouth daily at bedtime. - ondansetron (ZOFRAN) 4 mg tablet Take 1 tablet by mouth every 12 hours as needed for nausea/vomiting. - metoprolol succinate ER (TOPROL XL) 25 mg 24 hr tablet Take 1 tablet by mouth daily at bedtime. - fremanezumab-vfrm (AJOVY AUTOINJECTOR) 225 mg/1.5 mL auto-injector Inject 4.5 mL under the skin every 3 months. - clobetasol (TEMOVATE) 0.05 % ointment Apply 1 application to affected area two times a day. - buPROPion SR (WELLBUTRIN SR) 150 mg 12 hr tablet Take 1 tablet by mouth two times a day. - ubrogepant (UBRELVY) 100 mg tablet Take 1 tablet by mouth at migraine onset. May repeat once in 2 hours as needed. - Magnesium Citrate 150mg (Pure Encapsulations) Take 4 capsules daily. - riboflavin, vitamin B2, (VITAMIN B-2) 100 mg tab Take 4 tablets by mouth once daily. - coenzyme Q10 (COQ-10) 100 mg cap capsule Take 1 capsule by mouth twice daily. - vitamin D3-folic acid 5,000 unit- 1 mg tab Take 5,000 Units by mouth once daily. - multivitamin tablet Take 1 tablet by mouth once daily. Problem List As Of Date 11/02/2024 Noted Resolved H/O cervical spine surgery [Z98.890] 10/03/2016 Chronic neck pain [M54.2, G89.29] 03/29/2019 Hx of neck surgery [Z98.890] 01/13/2020 Radiculopathy, cervical region [M54.12] 01/13/2020 Arm numbness left [R20.0] 01/13/2020 Clenching of teeth [R19.8] 01/10/2021 Myofascial muscle solis (more content not included)... Normal [facility] CNTHERAPYon 10-11-2024 CNTHERAPY OT/PT/Speech Visit (PTWS) KIRA ADHIKARI ([id number]) 1985 [facility] Date Time Provider Department 10/11/24 12:15 PM BEATRIZ MELISSA PTWS Date Time Provider Department Center 10/11/2024 12:15 PM [id number], SEAN PTWS Dashawn Scherer Reason for Visit: Physical Therapy [503] Primary Visit Diagnosis:Spinal stenosis of cervical region [M48.02] Other Visit Diagnosis:Radiculopath y, cervical region [M54.12] Allergies As of Date: 10/11/2024 Noted Allergy Reaction DILAUDID (HYDROMORPHONE) 08/06/2016 9 - Itching FENTANYL 08/06/2016 9 - Itching SULFA (SULFONAMIDE ANTIBIOTICS) 08/06/2016 2 - Rash Date Reviewed: 07/07/2024 Reviewed by: Elaine Velasco APRN.MILLED RICE BROKER - Fully Assessed Prescriptions as of 10/11/2024 - nitrofurantoin monohydrate and macrocrystal (MACROBID) 100 mg capsule Take 1 capsule by mouth two times a day for 7 days. - phenazopyridine (PYRIDIUM) 200 mg tablet Take 1 tablet by mouth three times a day as needed (for UTI symptoms). - rosuvastatin (CRESTOR) 5 mg tablet Take 1 tablet by mouth once daily. - nitrofurantoin monohydrate and macrocrystal (MACROBID) 100 mg capsule Take 1 capsule by mouth two times a day for 7 days. - phenazopyridine (PYRIDIUM) 200 mg tablet Take 1 tablet by mouth three times a day as needed. - predniSONE (DELTASONE) 10 mg tablet Take by mouth with food.Take 30mg(3 tabs)/day x1 week, then 20mg (2 tabs)/day x1 week, then 10mg (1 tab)/day x1 week, then stop - acyclovir (ZOVIRAX) 400 mg tablet Take 1 tablet by mouth two times a day. - leflunomide (ARAVA) 20 mg tablet TAKE 1 TABLET BY MOUTH EVERY DAY - abatacept (ORENCIA CLICKJECT) 125 mg/mL auto-injector Inject 125mg (1 pen) subcutaneously one time a week. - tirzepatide (MOUNJARO) 15 mg/0.5 mL pen injector Inject 15 mg subcutaneously one time a week. - methocarbamol (ROBAXIN) 750 mg tablet Take 1 tablet by mouth four times daily. - Diclofenac Potassium (CAMBIA) 50 mg pwpk Take 1 Packet by mouth as needed for migraine headache. Can repeat dose in 2 hours, no more than 2 doses per day, or 2 days per week - pregabalin (LYRICA) 25 mg capsule Take 1 capsule by mouth two times a day as needed for up to 30 days. - Pxpsuucw5-Iknoct2-Dpuh p therm. (VSL#3) 112.5 billion cell cap Take 2 capsules by mouth daily at bedtime. - ondansetron (ZOFRAN) 4 mg tablet Take 1 tablet by mouth every 12 hours as needed for nausea/vomiting. - metoprolol succinate ER (TOPROL XL) 25 mg 24 hr tablet Take 1 tablet by mouth daily at bedtime. - fremanezumab-vfrm (AJOVY AUTOINJECTOR) 225 mg/1.5 mL auto-injector Inject 4.5 mL under the skin every 3 months. - clobetasol (TEMOVATE) 0.05 % ointment Apply 1 application to affected area two times a day. - buPROPion SR (WELLBUTRIN SR) 150 mg 12 hr tablet Take 1 tablet by mouth two times a day. - ubrogepant (UBRELVY) 100 mg tablet Take 1 tablet by mouth at migraine onset. May repeat once in 2 hours as needed. - Magnesium Citrate 150mg (Pure Encapsulations) Take 4 capsules daily. - riboflavin, vitamin B2, (VITAMIN B-2) 100 mg tab Take 4 tablets by mouth once daily. - coenzyme Q10 (COQ-10) 100 mg cap capsule Take 1 capsule by mouth twice daily. - vitamin D3-folic acid 5,000 unit- 1 mg tab Take 5,000 Units by mouth once daily. - multivitamin tablet Take 1 tablet by mouth once daily. Normal [facility] Bacteria Ur Culton 4 Bacteria identified Cx Nom (U) ORGANISM ID: 1 >=100,000 CFU/ml Escherichia coli ORGANISM ID: 1 (ESCHERICHIA COLI) -- ANTIBIOTIC INTERPRETATION NILSON STATUS REFERENCE RANGE -- Ampicillin S 4 F Susceptible <=8 , Intermediate >8 , Resistant >16 Cefazolin S <=4 F Susceptible 0-16 , Intermediate <0 or >16 , Resistant >16 For uncomplicated urinary tract infections, cefazolin results can be used to predict susceptibility or resistance to cephalexin. Ceftriaxone S <=1 F Susceptible <=1 , Intermediate >1 , Resistant >=4 Cefepime S <=1 F Susceptible <=2 , Susceptible-Dose Dependent >2 , Resistant >=16 Ertapenem S <=0.5 F Susceptible <=0.5 , Intermediate >.5 , Resistant >1 Meropenem S <=0.25 F Susceptible <=1 , Intermediate >1 , Resistant >2 Ampicillin/Sulbact S <=2 F Susceptible <=8 , Intermediate >8 , Resistant >16 Piperacillin/Tazobac S <=4 F Susceptible <16 , Susceptible-Dose Dependent >=16 , Resistant >=32 Gentamicin S <=1 F Susceptible <=2 , Intermediate >2 , Resistant >=8 Tobramycin S <=1 F Susceptible <4 , Intermediate >=4 , Resistant >=8 Trimeth sulfameth S <=20 F Susceptible <=40 , Resistant >40 Ciprofloxacin S <=0.25 F Susceptible <0.5 , Intermediate >=.5 , Resistant >=1 Nitrofurantoin S <=16 F Susceptible <=32 , Intermediate >32 , Resistant >64 Abnormal [facility] Comment on above: Performed By: #### 6 30-4 ####[facility] [id number] [address] OF [facility] 10-07-2024 [facility] Telephone ([facility]) KIRA ADHIKARI ([id number]) 1985 F [facility] Date Time Provider Department 10/07/24 DAVID KILGORE [facility] During your visit today, we recorded the following information about you: Betsy Ferrara, [facility] 10/07/2024 2:56 PM Signed [facility] received prescription(s) for acyclovir (Zovirax) from Dr Kilgore's office. Unfortunately, we do not carry or service non-specialty medications. If you would like the medication to be mailed to the patient by a [facility], please consider sending the Rx to [facility] (phone [phone]). Otherwise, please send the Rx to a [facility] outpatient pharmacy or patient's preferred pharmacy. Thanks, Betsy Ferrara, PharmD Clinical Pharmacist, Oncology [facility] P: , F: Pool: P [facility] ON[facility] Pool #: [id number] Roxanna Nunes PA-C 10/07/2024 3:58 PM Signed The following approved medication requests have been transmitted electronically. Requested Prescriptions Signed Prescriptions Disp Refills acyclovir (ZOVIRAX) 400 mg tablet 60 tablet 3 Sig: Take 1 tablet by mouth two times a day. Authorizing Provider: ORXANNA NUNES PA-C Sent to [facility] home delivery. Roxanna Nunes PA-C 10/07/2024 3:58 PM Signed Addended by: ROXANNA NUNES on: 10/07/2024 03:58 PM Modules accepted: Orders Allergies As of Date: 10/07/2024 Noted Allergy Reaction DILAUDID (HYDROMORPHONE) 08/06/2016 9 - Itching FENTANYL 08/06/2016 9 - Itching SULFA (SULFONAMIDE ANTIBIOTICS) 08/06/2016 2 - Rash Date Reviewed: 07/07/2024 Reviewed by: Elaine Velasco APRN.MILLED RICE BROKER - Fully Assessed Order(s):acyclovir (ZOVIRAX) 400 mg tabletTake 1 tablet by mouth two times a day.Disp: 60 tabletRfl: 3 Prescriptions as of 10/07/2024 - acyclovir (ZOVIRAX) 400 mg tablet Take 1 tablet by mouth two times a day. - leflunomide (ARAVA) 20 mg tablet TAKE 1 TABLET BY MOUTH EVERY DAY - abatacept (ORENCIA CLICKJECT) 125 mg/mL auto-injector Inject 125mg (1 pen) subcutaneously one time a week. - tirzepatide (MOUNJARO) 15 mg/0.5 mL pen injector Inject 15 mg subcutaneously one time a week. - rosuvastatin (CRESTOR) 5 mg tablet Take 1 tablet by mouth once daily. - methocarbamol (ROBAXIN) 750 mg tablet Take 1 tablet by mouth four times daily. - Diclofenac Potassium (CAMBIA) 50 mg pwpk Take 1 Packet by mouth as needed for migraine headache. Can repeat dose in 2 hours, no more than 2 doses per day, or 2 days per week - phenazopyridine (PYRIDIUM) 200 mg tablet Take 1 tablet by mouth three times a day as needed. - pregabalin (LYRICA) 25 mg capsule Take 1 capsule by mouth two times a day as needed for up to 30 days. - Fkyxwuwh3-Tvkdrm6-Nnqg p therm. (VSL#3) 112.5 billion cell cap Take 2 capsules by mouth daily at bedtime. - ondansetron (ZOFRAN) 4 mg tablet Take 1 tablet by mouth every 12 hours as needed for nausea/vomiting. - metoprolol succinate ER (TOPROL XL) 25 mg 24 hr tablet Take 1 tablet by mouth daily at bedtime. - fremanezumab-vfrm (AJOVY AUTOINJECTOR) 225 mg/1.5 mL auto-injector Inject 4.5 mL under the skin every 3 months. - clobetasol (TEMOVATE) 0.05 % ointment Apply 1 application to affected area two times a day. - buPROPion SR (WELLBUTRIN SR) 150 mg 12 hr tablet Take 1 tablet by mouth two times a day. - buPROPion SR (WELLBUTRIN SR) 150 mg 12 hr tablet Take 1 tablet by mouth two times a day. - ubrogepant (UBRELVY) 100 mg tablet Take 1 tablet by mouth at migraine onset. May repeat once in 2 hours as needed. - Magnesium Citrate 150mg (Pure Encapsulations) Take 4 capsules daily. - riboflavin, vitamin B2, (VITAMIN B-2) 100 mg tab Take 4 tablets by mouth once daily. - coenzyme Q10 (COQ-10) 100 mg cap capsule Take 1 capsule by mouth twice daily. - vitamin D3-folic acid 5,000 unit- 1 mg tab Take 5,000 Units by mouth once daily. - multivitamin tablet Take 1 tablet by mouth once daily. Problem List As Of Date 10/07/2024 Noted Resolved H/O cervical spine surgery [Z98.890] 10/03/2016 Chronic neck pain [M54.2, G89.29] 03/29/2019 Hx of neck surgery [Z98.890] 01/13/2020 Radiculopathy, cervical region [M54.12] 01/13/2020 Arm numbness left [R20.0] 01/13/2020 Clenching of teeth [R19.8] 01/10/2021 Myofascial muscle pain [M79.18] 01/10/2021 Centric occlusion maximum intercuspation discre*01/10/2021 Arthralgia of left temporomandibular joint [M26*01/10/2021 Hyponatremia [E87.1] 03/21/2021 Acute metabolic encephalopathy [G93.41] 03/21/2021 Migraine headache with aura [G43.109] 03/21/2021 Water intoxication [E87.79] 03/22/2021 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, G89.29] 03/22/2021 Inflammatory arthritis [M19.90] 03/22/2021 Somatic dysfunction of rib [M99.08] 04/23/2021 Somatic dysfunction of spine, thoracic [M99.02] 04/01 (more content not included)... Normal [facility] CNTHERAPYon 09-29-2024 CNTHERAPY OT/PT/Speech Visit (PTWS) KIRA ADHIKARI ([id number]) 1985 F [facility] Date Time Provider Department 09/29/24 4:15 PM BEATRIZ MELISSA PTKALEIGH Date Time Provider Department Center 09/29/2024 4:15 PM [id number], SEAN PTWS Dashawn Scherer Reason for Visit: Physical Therapy [503] Primary Visit Diagnosis:Spinal stenosis of cervical region [M48.02] Other Visit Diagnosis:Radiculopath y, cervical region [M54.12] Allergies As of Date: 09/29/2024 Noted Allergy Reaction DILAUDID (HYDROMORPHONE) 08/06/2016 9 - Itching FENTANYL 08/06/2016 9 - Itching SULFA (SULFONAMIDE ANTIBIOTICS) 08/06/2016 2 - Rash Date Reviewed: 07/07/2024 Reviewed by: Elaine Velasco APRN.MILLED RICE BROKER - Fully Assessed Prescriptions as of 10/01/2024 - abatacept (ORENCIA) 125 mg/mL injection Inject 125mg (1 syringe) subcutaneously once weekly. - tirzepatide (MOUNJARO) 15 mg/0.5 mL pen injector Inject 15 mg subcutaneously one time a week. - rosuvastatin (CRESTOR) 5 mg tablet Take 1 tablet by mouth once daily. - methocarbamol (ROBAXIN) 750 mg tablet Take 1 tablet by mouth four times daily. - Diclofenac Potassium (CAMBIA) 50 mg pwpk Take 1 Packet by mouth as needed for migraine headache. Can repeat dose in 2 hours, no more than 2 doses per day, or 2 days per week - leflunomide (ARAVA) 20 mg tablet TAKE 1 TABLET BY MOUTH EVERY DAY - phenazopyridine (PYRIDIUM) 200 mg tablet Take 1 tablet by mouth three times a day as needed. - pregabalin (LYRICA) 25 mg capsule Take 1 capsule by mouth two times a day as needed for up to 30 days. - Rvmvsfqw3-Zawzzp0-Mhal p therm. (VSL#3) 112.5 billion cell cap Take 2 capsules by mouth daily at bedtime. - ondansetron (ZOFRAN) 4 mg tablet Take 1 tablet by mouth every 12 hours as needed for nausea/vomiting. - metoprolol succinate ER (TOPROL XL) 25 mg 24 hr tablet Take 1 tablet by mouth daily at bedtime. - fremanezumab-vfrm (AJOVY AUTOINJECTOR) 225 mg/1.5 mL auto-injector Inject 4.5 mL under the skin every 3 months. - clobetasol (TEMOVATE) 0.05 % ointment Apply 1 application to affected area two times a day. - buPROPion SR (WELLBUTRIN SR) 150 mg 12 hr tablet Take 1 tablet by mouth two times a day. - buPROPion SR (WELLBUTRIN SR) 150 mg 12 hr tablet Take 1 tablet by mouth two times a day. - ubrogepant (UBRELVY) 100 mg tablet Take 1 tablet by mouth at migraine onset. May repeat once in 2 hours as needed. - Magnesium Citrate 150mg (Pure Encapsulations) Take 4 capsules daily. - riboflavin, vitamin B2, (VITAMIN B-2) 100 mg tab Take 4 tablets by mouth once daily. - coenzyme Q10 (COQ-10) 100 mg cap capsule Take 1 capsule by mouth twice daily. - vitamin D3-folic acid 5,000 unit- 1 mg tab Take 5,000 Units by mouth once daily. - multivitamin tablet Take 1 tablet by mouth once daily. Normal [facility] MR Cervical spine WO alejandro ton 08-17-2024 IMPRESSION: Degenerative changes at C6-C7, as detailed. Anatomic Variant: None. Assume 7 cervical vertebrae with counting from the craniocervical junction. Ore Buyer: PSCB Transcribe Date/Time: Aug 17 2024 10:04A Dictated by : JING MITTAL MD This examination was interpreted and the report reviewed and electronically signed by: JING MITTAL MD on Aug 17 2024 10:09AM [facility] DIVISION OF RADIOLOGY * * *Final Report* * * DATE OF EXAM: Aug 17 2024 8:25AM [id number] - MRI CERVICAL SPINE WO IVCON / PROCEDURE REASON: multiple diagnoses * * * * Physician Interpretation * * * * EXAMINATION: MRI CERVICAL SPINE WO IVCON CLINICAL HISTORY: Spinal stenosis of cervical region Radiculopathy, cervical region TECHNIQUE: Routine cervical spine MR protocol without gadolinium. MQ: [id number] COMPARISON: Cervical spine MRI cervical spine MRI 11/02/2021 RESULT: Counting reference: Craniocervical junction. Anatomic Variants: None. Localizer images: No significant findings. Alignment: Alignment is anatomic. There is mild reversal of normal cervical lordosis. Craniocervical junction: Craniocervical junction is normal. Cord: The visualized cord is within normal limits of signal intensity and morphology. Bone marrow signal/fracture: No evidence of pathologic marrow infiltration. No evidence of prior fracture. Cervical soft tissues: The paraspinal soft tissues are within normal limits. C2-C3: Canal and foramina are patent. C3-C4: Canal and foramina are patent. C4-C5: Canal and foramina are patent. C5-C6: Canal and foramina are patent. C6-C7: There are postoperative findings along the dorsal soft tissues related to prior surgery. There is mild bilateral facet and disc osteophyte complex resulting in moderate to severe left and moderate right foraminal narrowing. There is no spinal canal stenosis C7-T1: Canal and foramina are patent. DIVISION OF RADIOLOGY Provider, [facility] - 08/17/2024 * * *Final Report* * * DATE OF EXAM: Aug 17 2024 8:25AM [id number] - MRI CERVICAL SPINE WO IVCON / PROCEDURE REASON: multiple diagnoses * * * * Physician Interpretation * * * * EXAMINATION: MRI CERVICAL SPINE WO IVCON CLINICAL HISTORY: Spinal stenosis of cervical region Radiculopathy, cervical region TECHNIQUE: Routine cervical spine MR protocol without gadolinium. MQ: [id number] COMPARISON: Cervical spine MRI cervical spine MRI 11/02/2021 RESULT: Counting reference: Craniocervical junction. Anatomic Variants: None. Localizer images: No significant findings. Alignment: Alignment is anatomic. There is mild reversal of normal cervical lordosis. Craniocervical junction: Craniocervical junction is normal. Cord: The visualized cord is within normal limits of signal intensity and morphology. Bone marrow signal/fracture: No evidence of pathologic marrow infiltration. No evidence of prior fracture. Cervical soft tissues: The paraspinal soft tissues are within normal limits. C2-C3: Canal and foramina are patent. C3-C4: Canal and foramina are patent. C4-C5: Canal and foramina are patent. C5-C6: Canal and foramina are patent. C6-C7: There are postoperative findings along the dorsal soft tissues related to prior surgery. There is mild bilateral facet and disc osteophyte complex resulting in moderate to severe left and moderate right foraminal narrowing. There is no spinal canal stenosis C7-T1: Canal and foramina are patent. IMPRESSION IMPRESSION: Degenerative changes at C6-C7, as detailed. Anatomic Variant: None. Assume 7 cervical vertebrae with counting from the craniocervical junction. Ore Buyer: PSCB Transcribe Date/Time: Aug 17 2024 10:04A Dictated by : JING MITTAL MD This examination was interpreted and the report reviewed and electronically signed by: JING MITTAL MD on Aug 17 2024 10:09AM EST [facility] Rad[facility] Study observation (narrative) [facility] MR Cervical spine WO contras tOrdered By: [facility] Provider on 08-17-2024 [facility] US Pelvison 03-01-2024 [facility] CBC W Auto Differential pane l (Bld)on 02-11-2024 Basophils (Bld) [#/Vol] <0.11 k/uL [facility] Basophils/100 WBC (Bld) 0.4 % [facility] Differential cell count method Nom (Bld) Auto [facility] Eosinophils (Bld) [#/Vol] 0.05 10*3/uL <0.46 k/uL [facility] Eosinophils/100 WBC (Bld) 0.9 % [facility] Erythrocyte distribution width (RBC) [Ratio] 13.0 % 11.5 - 15.0 % [facility] Hematocrit (Bld) [Volume fraction] 36.1 % 36.0 - 46.0 % [facility] Hemoglobin (Bld) [Mass/Vol] 12.1 g/dL 11.5 - 15.5 g/dL [facility] Immature granulocytes (Bld) [#/Vol] <0.10 k/uL [facility] Immature granulocytes/100 WBC (Bld) 0.2 % [facility] Lymphocytes (Bld) [#/Vol] 1.45 10*3/uL 1.00 - 4.00 k/uL [facility] Lymphocytes/100 WBC (Bld) 27.3 % [facility] MCH (RBC) [Entitic mass] 32.8 pg 26.0 - 34.0 pg [facility] MCHC (RBC) [Mass/Vol] 33.5 g/dL 30.5 - 36.0 g/dL [facility] MCV (RBC) [Entitic vol] 97.8 fL 80.0 - 100.0 fL [facility] Monocytes (Bld) [#/Vol] 0.94 10*3/uL High <0.87 k/uL [facility] Monocytes/100 WBC (Bld) 17.7 % [facility] Neutrophils (Bld) [#/Vol] 2.85 10*3/uL 1.45 - 7.50 k/uL [facility] Neutrophils/100 WBC (Bld) 53.5 % [facility] Nucleated RBC (Bld) [#/Vol] <0.01 k/uL [facility] Nucleated RBC/100 WBC (Bld) [Ratio] 0.0 /100 WBC [facility] Platelet mean volume (Bld) [Entitic vol] 10.5 fL 9.0 - 12.7 fL [facility] Platelets (Bld) [#/Vol] 135 10*3/uL Low 150 - 400 k/uL [facility] RBC (Bld) [#/Vol] 3.69 10*6/uL Low 3.90 - 5.2 0 m/uL [facility] WBC (Bld) [#/Vol] 5.32 10*3/uL 3.70 - 11. 00 k/uL [facility] Comprehensive metabolic 2000 panelon 02-11-2024 Albumin [Mass/Vol] 4.1 g/dL 3.9 - 4.9 g/dL [facility] ALP [Catalytic activity/Vol] 68 U/L 34 - 123 U/L [facility] ALT [Catalytic activity/Vol] 40 U/L High 7 - 38 U/L [facility] Anion gap [Moles/Vol] 8 mmol/L Low 9 - 18 mmol/L [facility] AST [Catalytic activity/Vol] 54 U/L High 13 - 35 U/L [facility] Bilirubin [Mass/Vol] 0.4 mg/dL 0.2 - 1.3 mg/dL [facility] Calcium [Mass/Vol] 9.4 mg/dL 8.5 - 10. 2 mg/dL [facility] Chloride [Moles/Vol] 99 mmol/L 97 - 105 mmol/L [facility] CO2 [Moles/Vol] 26 mmol/L 22 - 30 mmol/L [facility] Creatinine [Mass/Vol] 0.67 mg/dL 0.58 - 0.96 mg/dL [facility] Estimated Glomerular Filtration Rate 114 mL/min/1.73m >=60 mL/min/1.73m [facility] Glucose [Mass/Vol] 99 mg/dL 74 - 99 mg/dL [facility] Potassium [Moles/Vol] 3.6 mmol/L Low 3.7 - 5.1 mmol/L [facility] Protein [Mass/Vol] 7.1 g/dL 6.3 - 8.0 g/dL [facility] Sodium [Moles/Vol] 133 mmol/L Low 136 - 144 mmol/L [facility] Urea nitrogen [Mass/Vol] 5 mg/dL Low 7 - 21 mg/dL [facility] ANES POSTPROC EVALon 023 ANES POSTPROC EVAL HNO ID: [id number] Author: Rene Fisher MD Service: Anesthesiology Author Type: Anesthesiologist Type: Anesthesia Postprocedure Evaluation Filed: 06/12/2023 3:21 PM Note Text: POST ANESTHESIA EVALUATION NOTE : 1985 Procedure Summary Date: 06/12/23 Room / Location: [id number] / [facility] Anesthesia Start: 1215 Anesthesia Stop: 1419 Procedure: ARTHROSCOPY HIP W/ LABRAL REPAIR (Right: Hip) Diagnosis: Tear of right acetabular labrum, subsequent encounter (Tear of right acetabular labrum, subsequent encounter [S73.191D]) Surgeons: Emre De Leon MD Responsible Provider: Rene Fisher MD Anesthesia Type: general ASA Status: 3 Anesthesia Type: general Airway Type: ETT Last Vitals Vitals Value Taken Time BP 100/55 06/12/23 1515 Temp 36 ?C (96.8 ?F) 06/12/23 1424 Pulse 85 06/12/23 1519 Resp 12 06/12/23 1519 SpO2 100 % 06/12/23 1519 Vitals shown include unvalidated device data. Post Anesthesia Patient Status Patient Evaluation: PACU. PACU/ICU Patient Condition: stable. Anticipated Disposition: phase 2 then home. Neurological Status: aware and responsive. Pulmonary Status: breathing comfortably on room air Airway Control: returned to baseline unsupported. Cardiovascular Status: stable. Pain Management: clinically adequate - multimodal analgesia pain management approach Postoperative Hydration: acceptable. Intraoperative Events: no significant anesthesia events Recommendation: continue current plan of care. Anesthesia Observations No Documentation SIGNATURE: Rene Fisher MD PATIENT NAME: Kira Adhikari DATE: June 12, 2023 TIME: 3:20 PM CSN: [id number] [facility] ANES PRE-OPon 06-12-2023 ANES PRE-OP HNO ID: [id number] Author: Rene Fisher MD Service: Anesthesiology Author Type: Anesthesiologist Type: Anesthesia Preprocedure Evaluation Filed: 06/12/2023 11:53 AM Note Text: ANESTHESIOLOGY DAY OF SURGERY NOTE : 1985 Procedure Information Date/Time: 06/12/23 1230 Procedure: ARTHROSCOPY HIP W/ LABRAL REPAIR (Right: Hip) - Right hip arthroscopy labral repair/ debridement, femoroplasty, acetabuloplasty Location: [facility] Surgeons: Emre De [place] MD Estimated body mass index is 23.46 kg/m? as calculated from the following: Height as of 06/07/23: 165.1 cm (5' 5). Weight as of this encounter: 64 kg (141 lb). Most recent hematocrit and potassium results: Hematocrit 40.4 05/28/2023 Potassium 4.0 05/28/2023 Relevant Problems CARDIO (+) Chronic migraine without aura, with intractable migraine, so stated, with status migrainosus (+) Migraine headache with aura (+) PVC's (premature ventricular contractions) NEURO-PSYCH (+) Chronic migraine without aura, with intractable migraine, so stated, with status migrainosus (+) Migraine headache with aura Other (+) Inflammatory arthritis I - PHYSICAL EVALUATION AIRWAY Patient intubated: No. Tracheostomy tube not present Mallampati: II. TM distance: >3 FB. Neck ROM: full ROM without neurological symptoms. Mouth opening: adequate. Short neck: no. Thick neck: no DENTAL Dental findings: teeth intact. Additional exam findings: no II - ANESTHESIA PLAN ASA Score: 3 Anesthetic Plan: general Airway type: ETT NPO Status: adequate Beta Deb Monitoring Plan Monitoring plan: Standard ASA. Post Procedure Analgesic Plan Postoperative analgesic plan: parenteral or oral opioids and multimodal analgesia. Informed Consent Anesthetic risks, benefits, alternatives, personnel and consent discussed: yes. Patient / Responsible Republican agrees to proceed: yes Patient / Surrogate agrees to blood products: yes DNR status not reviewed with patient and/or family prior to surgery. Significant changes in the patient condition since the History and Physical, not otherwise documented in primary service progress note: no. Potential Anesthesia issues that may suggest increased risk of complications or contraindication to planned procedure: none. Vitals Value Taken Time BP 111/53 06/12/23 1102 Pulse 97 06/12/23 1102 Resp Temp 36.3 ?C (97.4 ?F) 06/12/23 1102 SpO2 100 % 06/12/23 1102 Facility-Administered Medications as of 06/12/2023 Medication Dose Route Frequency - lidocaine 10 mg/mL (1 %) 1-2 mg injection (XYLOCAINE) 0.1-0.2 mL INTRADERMAL PRN - lactated ringers iv infusion 5-30 mL/hr INTRAVENOUS CONTINUOUS - NaCl 0.9% iv flush bag 20 mL INTRAVENOUS PRN - ceFAZolin iv piggyback 2 g in D5W (iso-osmotic) 100 mL (ANCEF) 2 g INTRAVENOUS Pre-Op Once Outpatient Medications as of 06/12/2023 Medication Sig - leflunomide (ARAVA) 10 mg tablet Take 1 tablet by mouth once daily. - valACYclovir (VALTREX) 1 gram Take 1 tablet by mouth once daily. - methocarbamol (ROBAXIN) 750 mg tablet Take 1 tablet by mouth four times daily. - metoprolol succinate ER (TOPROL XL) 25 mg 24 hr tablet Take 1 tablet by mouth daily at bedtime. - fremanezumab-vfrm (AJOVY AUTOINJECTOR) 225 mg/1.5 mL auto-injector Inject 4.5 mL under the skin every 3 months. - Diclofenac Potassium (CAMBIA) 50 mg pwpk Take 1 Packet by mouth as needed for migraine headache. Can repeat dose in 2 hours, no more than 2 doses per day, or 2 days per week - tirzepatide (MOUNJARO) 7.5 mg/0.5 mL pen injector Inject 7.5 mg subcutaneously one time a week. - buPROPion SR (WELLBUTRIN SR) 150 mg 12 hr tablet Take 1 tablet by mouth twice daily. - rosuvastatin (CRESTOR) 5 mg tablet Take 1 tablet by mouth once daily. - Magnesium Citrate 150mg (Pure Encapsulations) Take 4 capsules daily. - riboflavin, vitamin B2, (VITAMIN B-2) 100 mg tab Take 4 tablets by mouth once daily. - coenzyme Q10 (COQ-10) 100 mg cap capsule Take 1 capsule by mouth twice daily. - vitamin D3-folic acid 5,000 unit- 1 mg tab Take 5,000 Units by mouth once daily. - multivitamin tablet Take 1 tablet by mouth once daily. I have interviewed and examined the patient. I have reviewed the medical record and/or the pre-anesthesia evaluation, pertinent labs, and test results. This contains updated information obtained within 48 hours of Surgery/Procedure. SIGNATURE: Rene Fisher MD PATIENT NAME: Kira Adhikari DATE: June 12, 2023 TIME: 11:53 AM CSN: [id number] [facility] BRIEF OP NOTon 06-12-2023 BRIEF OP NOT HNO ID: [id number] Author: Lyric Camilo MD Service: Orthopaedic Surgery Author Type: Resident Type: Brief Op Note Filed: 06/12/2023 3:09 PM Note Text: BRIEF OPERATIVE / PROCEDURE NOTE LOG ID: [id number] SURGERY/PROCEDURE DATE: 06/12/2023 INCISION/PROCEDURE START TIME: 12:47 PM INCISION CLOSE/PROCEDURE END TIME: 2:05 PM SURGEON(S)/PROCEDURALI ST(S) AND MARINE STEAM FITTER(S): Surgeon(s) and Role: * Emre De [place] MD - Primary * Lyric Camilo MD - Resident - Assisting Physician Installation Technician: Dian Sierra PA-C SURGERY/PROCEDURE(S): 1. RIGHT hip arthroscopy. 2. Acetabuloplasty CPT 40808 3. Labral repair. CPT 27559 4. Femoroplasty. CPT 01604 5. Capsular Closure 6. Chondroplasty ANESTHESIA: General FINDINGS: Right hip acetabular labral tear, Right hip femoroacetabular impingement, Right pain in joint, pelvic region and thigh ESTIMATED BLOOD LOSS: < 5 mls SPECIMENS: None COMPLICATIONS: None CLOSURE TECHNIQUE: Primary PRE-OP/PRE-PROCEDURE DIAGNOSIS: Right hip acetabular labral tear S73.191A Right hip femoroacetabular impingement M25.851 Right pain in joint, pelvic region and thigh M25.551 POST-OP/POST-PROCEDURE DIAGNOSIS: Same as Preop SIGNATURE: Lyric Camilo MD PATIENT NAME: Kira Adhikari DATE: June 12, 2023 TIME: 3:07 PM [facility] HISTORY PHYSICALon 3 HISTORY PHYSICAL HNO ID: [id number] Author: Emre De [place] MD Service: Orthopaedic Surgery Author Type: Physician Type: HANDP Filed: 06/12/2023 12:17 PM Note Text: UPDATED HISTORY AND PHYSICAL EXAMINATION SERVICE DATE: 06/12/2023 SERVICE TIME: 1210 PHYSICAL EXAM MUST BE COMPLETED ON ADMISSION The History and Physical (completed in the past 30 days) has been reviewed and the patient has been examined. The contents accurately reflect the patient's condition with the following additions or revisions since the HANDP was completed. Examination indicates no changes. This HANDP can be found in the Electronic Medical Record dated 06/07/23. SIGNATURE: Emre De [place] MD PATIENT NAME: Kira Adhikari DATE: June 12, 2023 TIME: 12:17 PM [facility] NURSING PROGon 06-12-2023 NURSING PROG HNO ID: [id number] Author: Margi Cuellar RN Service: ? Author Type: Registered Nurse Type: Nursing Progress Note Filed: 06/12/2023 4:19 PM Note Text: Patient is unable to use rotation pillow states it causes more pain patient c/o a lot of pain in buttocks down leg to ankle patient and are aware not to internally or externallly rotate ankle [facility] NURSING PROG HNO ID: [id number] Author: Margi Cuellar RN Service: ? Author Type: Registered Nurse Type: Nursing Progress Note Filed: 06/12/2023 2:03 PM Note Text: POST OP LEARNING RESPONSE INSTRUCTION PROVIDED TO: Patient and Family member METHOD OF INSTRUCTION: Written instruction - handouts Verbal instruction PATIENT / FAMILY RESPONSE: Verbalizes understanding of: POST OPERATIVE INSTRUCTIONS RELATED TO: ROUTINE MONITORING AND PROCEDURES: , CARE TO PREVENT COMPLICATIONS: , PAIN CONTROL: , USE OF KNEE IMMOBILIZER: , HOW TO GAIN MOTION BACK: , PRE DISCHARGE: , ADVERSE CONDITIONS TO INFORM YOUR DOCTOR: FOLLOW-UP PLAN: Patient instructed to call with any further issues SUPPLEMENTAL MATERIAL: None REFERRAL (RECOMMENDATION): None Electronically Signed By: Margi Cuellar RN In Department: [facility] AMBULATORY SURGERY - [facility] OPERATIVE NOon 06-12-2023 OPERATIVE NO HNO ID: [id number] Author: Emre De [place] MD Service: Orthopaedic Surgery Author Type: Physician Type: Operative Report Filed: 06/12/2023 2:13 PM Note Text: [facility] Operative Report ORIGINATOR: Emre De [place] MD Kira Adhikari ACCTNUM: SERVICE: [id number] ATTENDING PHYSICIAN: Emre De [place] MD DATE OF PROCEDURE: June 12, 2023 SURGEON: Emre De [place] MD MARINE STEAM FITTER: Lyric Camilo MD PREOPERATIVE DIAGNOSIS: Right hip acetabular labral tear S73.191A Right hip femoroacetabular impingement M25.851 Right pain in joint, pelvic region and thigh M25.551 POSTOPERATIVE DIAGNOSIS: Right hip acetabular labral tear S73.191A Right hip femoroacetabular impingement M25.851 Right pain in joint, pelvic region and thigh M25.551 OPERATION: 1. right hip arthroscopy. 2. Acetabuloplasty CPT 33780 3. Labral repair. CPT 97068 4. Femoroplasty. CPT 37777 5. Capsular Closure 6. Chondroplasty ANESTHESIA: General LOCATION: [facility] [place]. OPERATIVE INDICATIONS: The patient is a pleasant 37 year old, female with recurrent right hip/ groin complaints not amenable to conservative treatment. Exacerbating factors: prolonged sitting, ADL's, pivoting/ lateral movements, activities requiring hip flexion greater than 90 degrees Correlating physical exam findings, including positive anterior impingement and DEYVI tests, with her imaging it was felt that she had a right hip labral tear with impingement. MRI: right acetabular labral tear Radiographs: maintained joint spaces Tonnis grade: 0 Alpha angle yun lateral 70 degrees We discussed treatment options both surgical and nonsurgical. We discussed the expectations, risks, benefits, alternatives of the above mentioned procedure, she voiced understanding and then wished to proceed. DESCRIPTION OF OPERATION: The patient was brought to [facility] operative suite 2 on June 12, 2023, after marking the appropriate surgical extremity in the preoperative holding area. Brought in the operative suite, placed on the operative table, and induced under general anesthesia. she was placed distally on the postless pink pad system. Both feet were secured in traction boots. The right upper extremity was placed across the chest. Care was taken to pad the ulnar nerve. Under fluoroscopic guidance and complete muscle relaxation, right hip was distracted. The lateral aspect of the greater trochanter was prepped with Betadine. The vacuum suction seal was then removed from the joint with an 18-gauge spinal needle. The hip was then reduced and then prepped and draped in usual sterile fashion. After appropriate surgical time-out including all members of the surgical team, confirming the site and extremity, ensuring senior receptionist of 2gm of IV Ancef, the hip was again distracted. The standard anterolateral and mid anterior portal were created. Exam of the hip joint revealed an anterosuperior labral tear from the 12 position on the clock face over to 3. There was a central labral/chondral separation, 25% thickness, chondroplasty was performed stabilizing the loose edges. The deep anterior wall, dome, posterior wall, posterior labrum, femoral head, ligamentum teres were intact. An interportal cut capsulotomy was performed. A labral takedown was performed in the area of tear. We exposed 2 mm of acetabular bone by 2.2 cm in length. We then used the 5.0 mm aubrey to perform the acetabuloplasty going 1.5 cm into the subspine region. Once this was completed, 3 1.8 mm Knotless Fibertak anchors were placed. Simple suture configuration was employed and the labrum was secured down to the prepared bone in a very stable fashion. Once this was completed, repeat exam of the joint revealed no further chondral changes. The hip was then reduced at 38 minutes. Labral seal was restored upon the reduction of the hip. The head-neck junction was identified distally after extending to a T capsulotomy. The loss of head/neck junction offset was easily identifiable. A 5.0 mm aubrey was used to perform the femoroplasty. We used live fluoroscopic views in multiple hip flexion angles and direct visualization to ensure adequate, but not over resection from 11 to 5 on the clockface, ensuring good contour from the lateral epiphyseal vessels to the medial synovial fold. All loose bony debris was debrided from the joint. Capsular closure was then performed with 4 #2 Ultrabraid sutures. This reduced the iliofemoral ligament and capsule in a very stable fashion. All excess fluid was removed. The hip was injected with a cocktail of 20 mL of 0.5% ropivacaine and 2 mg of Duramorph for postoperative analgesia. The arthroscopic instruments were then removed. The wound was then closed with interrupted 3-0 Prolene, with a 3-0 Monocryl deep for the mid anterior portal as well, followed by Steri-Strips and sterile dressing. The p (more content not included)... Normal [facility] XR Pelvis and Hip - right AP and Lateral frogon 05-15-2023 IMPRESSION: NO ACUTE OSSEOUS ABNORMALITY OTHER FINDINGS DESCRIBED Ore Buyer: KATH Transcribe Date/Time: May 15 2023 12:12P Dictated by : ADAMS MCALLISTER MD This examination was interpreted and the report reviewed and electronically signed by: ADAMS MCALLISTER MD on May 15 2023 12:13PM [facility] DIVISION OF RADIOLOGY * * *Final Report* * * DATE OF EXAM: May 15 2023 11:00AM SHX [id number] - XR HIP 3V PELV+ AP/LAT RT / PROCEDURE REASON: Tear of right acetabular labrum, subsequent encounter * * * * Physician Interpretation * * * * HISTORY (as given from clinical provider): Tear of right acetabular labrum, subsequent encounter . Additional history provided by the performing technologist (if any): PT STATES R HIP PAINS NO SX TECHNIQUE: XR HIP 3V PELV+ AP/LAT RT COMPARISON: 08/02/2022 RESULT: Cam morphology right femoral head-neck junction. Tiny accessory ossicle or accessory ossification along the lateral margin of the right acetabulum. The right hip joint space is normal. Left hip is normal. SI joints are normal. No other significant abnormality. - DIVISION OF RADIOLOGY Provider, [facility] - 05/15/2023 * * *Final Report* * * DATE OF EXAM: May 15 2023 11:00AM X 5352 - XR HIP 3V PELV+ AP/LAT RT / PROCEDURE REASON: Tear of right acetabular labrum, subsequent encounter * * * * Physician Interpretation * * * * HISTORY (as given from clinical provider): Tear of right acetabular labrum, subsequent encounter . Additional history provided by the performing technologist (if any): PT STATES R HIP PAINS NO SX TECHNIQUE: XR HIP 3V PELV+ AP/LAT RT COMPARISON: 08/02/2022 RESULT: Cam morphology right femoral head-neck junction. Tiny accessory ossicle or accessory ossification along the lateral margin of the right acetabulum. The right hip joint space is normal. Left hip is normal. SI joints are normal. No other significant abnormality. 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 Ore Buyer: [facility] Transcribe Date/Time: Oct 03 2022 9:45A Dictated by : DARIEL SOMMER MD This examination was interpreted and the report reviewed and electronically signed by: GAEL WHITLEY MD on Oct 03 2022 1:32PM [facility] DIVISION OF RADIOLOGY * * *Final Report* * * DATE OF EXAM: Oct 03 2022 9:38AM [facility] 0207 - MRI HIP WO IVCON RT / PROCEDURE REASON: Right hip impingement syndrome * * * * Physician Interpretation * * * * EXAMINATION: MRI HIP WO IVCON RT HISTORY: Right hip impingement syndrome progressively worsening right hip pain for at least one year, progressively worsening over last 2 months. Right CAM femoral acetabular impingement. TECHNIQUE: Routine multiplanar MRI of the right hip without contrast COMPARISON: 08/02/2022 right hip radiographs RESULT: Hip joints: Right hip: There is extensive tearing of the anterior superior labrum (7:23 and 8:12 for example). There is adjacent chondral delamination in the anterior superior acetabulum (7:18 for example). Trace joint effusion. Unchanged bony prominence at the femoral head neck junction compatible with a cam deformity. Large gmuau-vq-svqn images of the left hip are unremarkable. Evaluation of articular cartilage and labrum is limited. Cystic changes in the lateral aspect of the femoral head neck junction compatible with a synovial herniation pit. Bone Marrow: No fracture or suspicious marrow replacing lesions. Sacroiliac joints: Within normal limits. Pubic symphysis: Within normal limits. Tendons: The iliopsoas, hamstring, gluteal, and rectus femoris tendons are intact. Muscles: Within normal limits. Other: Cervical nabothian cysts. Left corpus luteal cyst. Localizer images: No significant additional findings. DIVISION OF RADIOLOGY Provider, [facility] - 10/03/2022 * * *Final Report* * * DATE OF EXAM: Oct 03 2022 9:38AM M 0207 - MRI HIP WO IVCON RT / PROCEDURE REASON: Right hip impingement syndrome * * * * Physician Interpretation * * * * EXAMINATION: MRI HIP WO IVCON RT HISTORY: Right hip impingement syndrome progressively worsening right hip pain for at least one year, progressively worsening over last 2 months. Right CAM femoral acetabular impingement. TECHNIQUE: Routine multiplanar MRI of the right hip without contrast COMPARISON: 08/02/2022 right hip radiographs RESULT: Hip joints: Right hip: There is extensive tearing of the anterior superior labrum (7:23 and 8:12 for example). There is adjacent chondral delamination in the anterior superior acetabulum (7:18 for example). Trace joint effusion. Unchanged bony prominence at the femoral head neck junction compatible with a cam deformity. Large cuuwb-mr-pwuz images of the left hip are unremarkable. Evaluation of articular cartilage and labrum is limited. Cystic changes in the lateral aspect of the femoral head neck junction compatible with a synovial herniation pit. Bone Marrow: No fracture or suspicious marrow replacing lesions. Sacroiliac joints: Within normal limits. Pubic symphysis: Within normal limits. Tendons: The iliopsoas, hamstring, gluteal, and rectus femoris tendons are intact. Muscles: Within normal limits. Other: Cervical nabothian cysts. Left corpus luteal cyst. Localizer images: No significant additional findings. 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 Ore Buyer: [facility] Transcribe Date/Time: Oct 03 2022 9:45A Dictated by : DARIEL SOMMER MD This examination was interpreted and the report reviewed and electronically signed by: GAEL WHITLEY MD on Oct 03 2022 1:32PM EST [facility] Radiology Study observation (narrative) [facility] MR Hip - right WO contrastOr dered By: [facility] Provider on 10-03-2022 [facility] XR Pelvis and Hip - right AP and Lateral frogon 08-02-2022 IMPRESSION: NO ACUTE OSSEOUS ABNORMALITY OTHER FINDINGS DESCRIBED Ore Buyer: KATH Transcribe Date/Time: Aug 02 2022 12:27P Dictated by : GAEL WHITLEY MD This examination was interpreted and the report reviewed and electronically signed by: GAEL WHITLEY MD on Aug 02 2022 12:28PM [facility] DIVISION OF RADIOLOGY * * *Final Report* * * DATE OF EXAM: Aug 02 2022 11:19AM SHX [id number] - XR HIP 3V PELV+ AP/LAT RT / PROCEDURE REASON: Pain in right hip * * * * Physician Interpretation * * * * HISTORY: Pain in right hip . RIGHT HIP PAIN. NO INJURY TECHNIQUE: XR HIP 3V PELV+ AP/LAT RT COMPARISON: 07/22/2022 RESULT: Joint spaces and alignment normal. No evidence of a fracture. Mild bony prominence at the femoral head neck junction. Normal soft tissues. No other significant abnormality. - DIVISION OF RADIOLOGY Provider, [facility] - 08/02/2022 * * *Final Report* * * DATE OF EXAM: Aug 02 2022 11:19AM [facility]X 5352 - XR HIP 3V PELV+ AP/LAT RT / PROCEDURE REASON: Pain in right hip * * * * Physician Interpretation * * * * HISTORY: Pain in right hip . RIGHT HIP PAIN. NO INJURY TECHNIQUE: XR HIP 3V PELV+ AP/LAT RT COMPARISON: 07/22/2022 RESULT: Joint spaces and alignment normal. No evidence of a fracture. Mild bony prominence at the femoral head neck junction. Normal soft tissues. No other significant abnormality. - IMPRESSION IMPRESSION: NO ACUTE OSSEOUS ABNORMALITY OTHER FINDINGS DESCRIBED Ore Buyer: KATH Transcribe Date/Time: Aug 02 2022 12:27P Dictated by : GAEL WHITLEY MD This examination was interpreted and the report reviewed and electronically signed by: GAEL WHITLEY MD on Aug 02 2022 12:28PM EST [facility] Radiology Study observation (narrative) [facility] XR Pelvis and Hip - right AP and Lateral frogOrdered By: [facility] Provider on 08-02-2022 [facility] BLOOD TB SCREENon 07-18-2022 M. tuberculosis tuberculin stim IFN-g Ql (Bld) Negative [facility] Mitogen minus Nil >=0.50 IU/mL [facility] TB Gamma Interpretation Infection with M. tuberculosis complex is unlikely. If latent tuberculosis infection is highly suspected, a negative result does not rule out the infection. Specimens from immunocompromised patients and those <5 years of age may show false negative results. In case of a contact investigation, please repeat 8-12 weeks after a known exposure. [facility] TB Nil 0.01 IU/mL <=8.00 IU/mL [facility] TB1 Ag minus Nil 0.05 IU/mL <0.35 IU/mL [facility] TB2 Ag minus Nil 0.05 IU/mL <0.35 IU/mL [facility] Emergency Department Summary on 05-18-2022 Emergency Department Summary [facility] Medical Records Department [address] [place] [address] Emergency Department Summary 05/18/22 MR#: [id number] Acct: [id number] Name: KIRA ADHIKARI Rep #: [id number] : 1985 36 From: Jd Ladd MD PCP: Dr. David Kilgore, DO Status:REG ER Location: ED HPI History of Present Illness Chief Complaint: Headache Detail of Chief Complaint: History of migraine headaches. Typical for one of her headaches. 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 Has a history of migraine headaches. States he gets headaches almost daily. This when she has had for the last 4 days. Her home treatment is not making it better. She denies any fall injury or trauma. She is on no blood thinners. She denies any sinus congestion or drainage. She denies any fever. She has associated nausea. When she gets her migraines they have a preceding aura and she gets wavy lines on her vision. She said this is very similar to her prior migraines. She has had brain imaging in the past. There is no history of brain aneurysms or family history of aneurysms nor intracranial bleeds. Prior similar symptoms: Yes Recent Illness/Hospitalizatio n: No PFSH [facility] Medical History Arthritis Degenerative disc disease Migraine Allergy/AdvReac Type Severity Reaction Status Date / Time fentanyl Allergy Itching Verified 02/19/22 21:24 hydromorphone [From Dilaudid] Allergy Itching Verified 02/19/22 21:24 Sulfa (Sulfonamide Allergy Rash Verified 02/19/22 21:24 Antibiotics) Social History Smoking Status: Never smoker ROS ROS ED ROS Narrative Headache, nausea and aura. Review of Systems ROS Unobtainable: Denies due to encephalopathy Constitutional Constitutional ED: Denies chills or fever(s) Eyes Eyes: Reports change in vision ENT ENT ED: Denies ear pain Cardiovascular Cardiovascular: Denies chest pain Respiratory/Chest Respiratory/Chest: Denies cough Gastrointestinal Gastrointestinal: Reports nausea; Denies abdominal pain, constipation or vomiting Genitourinary Genitourinary ED: Denies dysuria or hematuria Musculoskeletal Musculoskeletal: Denies arthralgias Integumentary Denies abscess Neurologic Neurologic: Reports headache(s) Psychiatric Psychiatric: Denies anxiety Endocrine Endocrinology: Denies polydipsia Hematologic/Lymphatic Hematologic/Lymphatic: Denies easy bleeding Allergic/Immunologic Allergic/Immunologic ED: Denies mouth swelling EXAM Physical Exam Narrative Exam Narrative: 36-year-old female. Vital signs stable afebrile. No distress. No photophobia. H EENT exam unremarkable. Pupils round reactive light. Extra motions are intact. Normal speech. No facial droop. No signs of trauma. Neck nontender. No lymphadenopathy. No meningismus. Able to flex chin to chest. Lungs are clear. Heart regular rhythm. Rate of 90. No murmur. Abdomen soft nontender. Moving all 4 extremities. 5-5 raised printer strength. Dorsi plantarflexion intact. Neurologic exam normal. NIH is 0. Fingertip to nose and [id number] within normal limits. Patient has a normal exam. Const Vital Signs: 05/18/22 21:05 Temperature 97.8 F Temperature Source Temporal Pulse Rate 92 Respiratory Rate 16 Blood Pressure 116/56 L Blood Pressure Mean 76 Pulse Ox 98 Oxygen Delivery Method Room Air Positive well nourished and well developed; Negative for cachectic, contractures or unkempt General Appearance ED: well developed; Negative for unkempt, cachectic, contractures or pallor Nutritional Appearance: Negative for cachectic HEENT Reports normocephalic and moist mucous membranes; Denies dry mucous membranes atraumatic; Negative for trauma, tenderness, temporal artery tenderness or vesicular rash Face and Sinus: Negative for sinus tenderness Mouth ED: No dry mucous membranes Mouth: No dry mucous membranes Eyes PERRL and EOMs intact bilaterally General Eye ED: Negative for pale conjunctiva or scleral icterus Neck no lymphadenopathy, supple, no meningeal signs and no JVD Resp normal respiratory effort and clear to auscultation bilaterally Effort and Inspection: Negative for retractions Auscultation: Negative for rales, rhonchi, wheez (more content not included)... Normal [facility] XR FLUOROSCOPYon 03-07-2022 [facility] Emergency Department Summary on 02-20-2022 Emergency Department Summary [facility] Medical Records Department [address] [place] [address] Emergency Department Summary 02/19/22 MR#: [id number] Acct: [id number] Name: KIRA ADHIKARI Rep #: [id number] : 1985 36 From: Carlton De Jesus MD PCP: Dr. David Kilgore, DO Status:DEP ER Location: ED HPI History of Present Illness Chief Complaint: Headache Informant: patient Narrative Narrative: Presents with exacerbation of migraine. She has migraines every single day of her life. She has extensive evaluations for these. She has a neurologist she sees regularly. They have exacerbated since she had an injection for her cervical root about a month ago. She states getting rid of that pain has freed up all the other pains in her neck and head that she now notices more. Patient is on multiple meds at home. She takes Reglan. She just got off 4 days of Toradol. She has Ajovy injections. She is also on Humira. She is on Cymbalta. She is also on baclofen. She states this is her typical migraine. She had her typical visual aura. She describes it as tension across her forehead and then goes down her neck. No neurologic symptoms such as weakness numbness or tingling. No fevers. No trauma. [facility] Medical History (Updated 02/20/22 @ 01:[address] Carlton De Jesus MD) Arthritis Degenerative disc disease Migraine Allergy/AdvReac Type Severity Reaction Status Date / Time fentanyl Allergy Itching Verified 02/19/22 21:24 hydromorphone [From Dilaudid] Allergy Itching Verified 02/19/22 21:24 Sulfa (Sulfonamide Allergy Rash Verified 02/19/22 21:24 Antibiotics) Social History Smoking Status: Never smoker ROS ROS ED Constitutional Constitutional ED: Denies chills or fever(s) Eyes Eyes: Reports other Details: She has had visual changes consistent with her aura. ; Denies blurry vision or diplopia ENT ENT ED: Denies rhinorrhea Cardiovascular Cardiovascular: Denies chest pain Respiratory/Chest Respiratory/Chest: Denies cough or dyspnea Gastrointestinal Gastrointestinal: Reports nausea; Denies abdominal pain, diarrhea or vomiting Genitourinary Genitourinary ED: Denies dysuria Musculoskeletal Musculoskeletal: Reports neck pain; Denies myalgias Integumentary Denies rash Neurologic Neurologic: Reports headache(s); Denies paresthesias or weakness Endocrine Endocrinology: Denies polydipsia or polyuria Allergic/Immunologic Allergic/Immunologic ED: Denies urticaria EXAM Physical Exam Const Vital Signs: 02/19/22 21:22 02/20/22 01:08 Temperature 97 F L Temperature Source Temporal Pulse Rate 78 74 Respiratory Rate 16 17 Blood Pressure 138/77 H 122/74 H Blood Pressure Mean 97 Pulse Ox 98 98 Oxygen Delivery Method Room Air Positive well nourished and well developed General Appearance ED: well developed and NAD HEENT Reports moist mucous membranes Eyes Eyes Narrative: She does have some mild photophobia. Pupils are reactive from about 4 down to 2 mm. General Eye ED: Negative for pale conjunctiva or scleral icterus Neck No no JVD Chest Wall inspection of chest normal Resp normal respiratory effort and clear to auscultation bilaterally Cardio regular rate and regular rhythm GI normal to inspection, nondistended, normoactive bowel sounds and non-tender Palpation: soft Back/Spine no CVA tenderness Neuro CN's II-XII intact bilaterally and no sensory deficits noted Sensorium / Orientation: alert; Negative for orientation impaired, lethargic or stuporous Motor Exam: strength 5/5 throughout; Negative for strength abnormal Psych mental status grossly normal Skin no rashes or lesions noted and no wounds Skin Narrative: No vesicles MDM MDM MDM Narrative Medical decision making narrative: Patient is feeling better after therapy. Hopefully Decadron will help break this cycle for her. She will follow up with her physicians. Discharge Plan Triage Chief Complaint: Headache ED Provider: Carlton De Jesus Dx/Rx/DC Orders Clinical Impression: Headache, migraine Instructions: ED, Migraine (Classical) Primary Care Provider: David Kilgore Referrals: David Kilgore DO [Primary Care Provider] - As soon as possible Disposition Disposition: Home, Self Care Discharge Date/Time: 02/20/22 01:08 What to do if you have Problems For any increased pain, shortness of breath, bleeding, nausea or vomiting, chest pain, or any unexpected problems, contact your Primary Care Provider. Call [facility] ([phone]) or report to the closest Emergency Room. Call 911 if necessary. 02/20/22 0348 Cosigner Signature (if applicable): CC: Dr. David Kilgore DO Signed Normal [facility] Vital Signs Date Time Vital Sign Value Performing Clinician Facility 07-21-2025 10:45-0400 Body mass index (BMI) [Ratio] 22.47 kg/m2 Sunil Owen DO Work Phone: [facility] 07-21-2025 10:45-0400 Body weight 61.24 kg Sunil Owen DO Work Phone: [facility] 07-21-2025 10:45-0400 Diastolic blood pressure 75 mm[Hg] Sunil Owen DO Work Phone: [facility] 07-21-2025 10:45-0400 Heart rate 92 /min Sunil Owen DO Work Phone: [facility] 07-21-2025 10:45-0400 Systolic blood pressure 113 mm[Hg] Sunil Owen DO Work Phone: [facility] 04-06-2025 10:38-0400 Body mass index (BMI) [Ratio] 21.63 kg/m2 Sunil Owen DO Work Phone: [facility] 04-06-2025 10:38-0400 Body weight 58.97 kg Sunil Owen DO Work Phone: [facility] 04-06-2025 10:38-0400 Diastolic blood pressure 81 mm[Hg] Sunil Owen DO Work Phone: [facility] 04-06-2025 10:38-0400 Heart rate 84 /min Sunil Owen DO Work Phone: [facility] 04-06-2025 10:38-0400 Systolic blood pressure 116 mm[Hg] Sunil Owen DO Work Phone: [facility] 03-16-2025 08:33-0400 Diastolic blood pressure 61 mm[Hg] Portillo Mccallum MD Work Phone: [facility] 03-16-2025 08:33-0400 Heart rate 84 /min Portillo Mccallum MD Work Phone: [facility] 03-16-2025 08:33-0400 Respiratory rate 16 /min Portillo Mccallum MD Work Phone: [facility] 03-16-2025 08:33-0400 SaO2% (BldA) [Mass fraction] 99 % Portillo Mccallum MD Work Phone: [facility] 03-16-2025 08:33-0400 Systolic blood pressure 107 mm[Hg] Portillo Mccallum MD Work Phone: [facility] 03-16-2025 07:09-0400 Body mass index (BMI) [Ratio] 22.45 kg/m2 Portillo Mccallum MD Work Phone: [facility] 03-16-2025 07:09-0400 Body temperature 97.7 [degF] Portillo Mccallum MD Work Phone: [facility] 03-16-2025 07:09-0400 Body weight 61.2 kg Portillo Mccallum MD Work Phone: [facility] 02-04-2025 09:13-0500 Body height 165.1 cm Janiya Toney BEAUTY CULTURIST.[employer] Work Phone: [facility] 02-04-2025 09:13-0500 Body mass index (BMI) [Ratio] 22.47 kg/m2 Janiya Toney BEAUTY CULTURIST.[employer] Work Phone: [facility] 02-04-2025 09:13-0500 Body temperature 98.91 [degF] Janiya Toney BEAUTY CULTURIST.[employer] Work Phone: [facility] 02-04-2025 09:13-0500 Body weight 61.24 kg Janiya Toney BEAUTY CULTURIST.[employer] Work Phone: [facility] 02-04-2025 09:13-0500 Diastolic blood pressure 76 mm[Hg] Janiya Toney BEAUTY CULTURIST.[employer] Work Phone: [facility] 02-04-2025 09:13-0500 Heart rate 98 /min Janiya Toney BEAUTY CULTURIST.[employer] Work Phone: [facility] 02-04-2025 09:13-0500 Respiratory rate 12 /min Janiya Toney BEAUTY CULTURIST.[employer] Work Phone: [facility] 02-04-2025 09:13-0500 SaO2% (BldA) [Mass fraction] 99 % Janiya Toney BEAUTY CULTURIST.[employer] Work Phone: [facility] 02-04-2025 09:13-0500 Systolic blood pressure 114 mm[Hg] Janiya Toney BEAUTY CULTURIST.[employer] Work Phone: [facility] 12-08-2024 11:51-0500 Body height 165.1 cm David Kilgore DO Work Phone: [facility] 12-08-2024 11:51-0500 Body mass index (BMI) [Ratio] 23.13 kg/m2 David Kilgore DO Work Phone: [facility] 12-08-2024 11:51-0500 Body temperature 97 [degF] David Kilgore DO Work Phone: [facility] 12-08-2024 11:51-0500 Body weight 63.05 kg David Kilgore DO Work Phone: [facility] 12-08-2024 11:51-0500 Diastolic blood pressure 80 mm[Hg] David Kilgore DO Work Phone: [facility] 12-08-2024 11:51-0500 Heart rate 72 /min David Kilgore DO Work Phone: [facility] 12-08-2024 11:51-0500 Respiratory rate 12 /min David Kilgore DO Work Phone: [facility] 12-08-2024 11:51-0500 Systolic blood pressure 120 mm[Hg] David Kilgore DO Work Phone: [facility] 01-02-2024 10:05-0500 Diastolic blood pressure 68 mm[Hg] Kyra Froimson BEAUTY CULTURIST.[employer] Work Phone: [facility] 01-02-2024 10:05-0500 Heart rate 74 /min Kyra Froimson BEAUTY CULTURIST.[employer] Work Phone: [facility] 01-02-2024 10:05-0500 Respiratory rate 16 /min Kyra Froimson BEAUTY CULTURIST.[employer] Work Phone: [facility] 01-02-2024 10:05-0500 Systolic blood pressure 119 mm[Hg] Kyra Froimson BEAUTY CULTURIST.[employer] Work Phone: [facility] 08-14-2023 09:18-0400 Body weight 62.6 kg Nurse Wstr Work Phone: [facility] 06-26-2023 08:08-0400 Body weight 63.96 kg Maddie Moraes APRN.[employer] Work Phone: [facility] 06-26-2023 08:08-0400 Diastolic blood pressure 70 mm[Hg] Maddie Moraes APRN.[employer] Work Phone: [facility] 06-26-2023 08:08-0400 Heart rate 84 /min Maddie Moraes APRN.[employer] Work Phone: [facility] 06-26-2023 08:08-0400 SaO2% (BldA) [Mass fraction] 99 % Maddie Moraes APRN.[employer] Work Phone: [facility] 06-26-2023 08:08-0400 Systolic blood pressure 100 mm[Hg] Maddie Moraes APRN.[employer] Work Phone: [facility] 06-07-2023 08:06-0400 Body height 165.1 cm [facility] 06-07-2023 08:06-0400 Body weight 63.96 kg [facility] 06-07-2023 08:06-0400 Heart rate 80 /min [facility] 06-07-2023 08:06-0400 Respiratory rate 16 /min [facility] 12-19-2022 11:05-0500 Body temperature 97.11 [degF] Treatment Wstr Work Phone: [facility] 12-19-2022 11:05-0500 Body weight 78.47 kg Treatment Wstr Work Phone: [facility] 12-19-2022 11:05-0500 Diastolic blood pressure 54 mm[Hg] Treatment Wstr Work Phone: [facility] 12-19-2022 11:05-0500 Heart rate 78 /min Treatment Wstr Work Phone: [facility] 12-19-2022 11:05-0500 Systolic blood pressure 95 mm[Hg] Treatment Wstr Work Phone: [facility] 10-15-2022 10:09-0500 Body temperature 97.81 [degF] Treatment Wstr Work Phone: [facility] 10-15-2022 10:09-0500 Diastolic blood pressure 57 mm[Hg] Treatment Wstr Work Phone: [facility] 10-15-2022 10:09-0500 Heart rate 79 /min Treatment Wstr Work Phone: [facility] 10-15-2022 10:09-0500 Respiratory rate 16 /min Treatment Wstr Work Phone: [facility] 10-15-2022 10:09-0500 Systolic blood pressure 112 mm[Hg] Treatment Wstr Work Phone: [facility] 08-20-2022 14:01-0400 Body temperature 97.9 [degF] Treatment Wstr Work Phone: [facility] 08-20-2022 14:01-0400 Diastolic blood pressure 68 mm[Hg] Treatment Wstr Work Phone: [facility] 08-20-2022 14:01-0400 Heart rate 85 /min Treatment Wstr Work Phone: [facility] 08-20-2022 14:01-0400 Systolic blood pressure 108 mm[Hg] Treatment Wstr Work Phone: [facility] 08-07-2022 09:58-0400 Body height 165.1 cm Ajit Torre MD Work Phone: [facility] 08-07-2022 09:58-0400 Body temperature 97.59 [degF] Ajit Torre MD Work Phone: [facility] 08-07-2022 09:58-0400 Body weight 83.01 kg Ajit Torre MD Work Phone: [facility] 08-07-2022 09:58-0400 Diastolic blood pressure 74 mm[Hg] Ajit Torre MD Work Phone: [facility] 08-07-2022 09:58-0400 Heart rate 78 /min Ajit Torre MD Work Phone: [facility] 08-07-2022 09:58-0400 Systolic blood pressure 108 mm[Hg] Ajit Torre MD Work Phone: [facility] 07-22-2022 09:05-0400 Body temperature 98.29 [degF] Treatment Wstr Work Phone: [facility] 07-22-2022 09:05-0400 Diastolic blood pressure 71 mm[Hg] Treatment Wstr Work Phone: [facility] 07-22-2022 09:05-0400 Heart rate 81 /min Treatment Wstr Work Phone: [facility] 07-22-2022 09:05-0400 Respiratory rate 16 /min Treatment Wstr Work Phone: [facility] 07-22-2022 09:05-0400 SaO2% (BldA) [Mass fraction] 98 % Treatment Wstr Work Phone: [facility] 07-22-2022 09:05-0400 Systolic blood pressure 118 mm[Hg] Treatment Wstr Work Phone: [facility] 06-13-2022 16:24-0400 Body height 165.1 cm Sue Concepcion MD Work Phone: [facility] 06-13-2022 16:24-0400 Body temperature 98.2 [degF] Sue Concepcion MD Work Phone: [facility] 06-13-2022 16:24-0400 Body weight 78.93 kg Sue Concepcion MD Work Phone: [facility] 06-13-2022 16:24-0400 Diastolic blood pressure 72 mm[Hg] Sue Concepcion MD Work Phone: [facility] 06-13-2022 16:24-0400 Heart rate 88 /min Sue Concepcion MD Work Phone: [facility] 06-13-2022 16:24-0400 Systolic blood pressure 119 mm[Hg] Sue Concepcion MD Work Phone: [facility] 05-18-2022 21:05-0400 Body height 165.1 cm [facility] Work Phone: 05-18-2022 21:05-0400 Body mass index (BMI) [Ratio] 29.6 kg/m2 [facility] Work Phone: 05-18-2022 21:05-0400 Body temperature 97.8 [degF] [facility] Work Phone: 05-18-2022 21:05-0400 Body weight 80.73 kg [facility] Work Phone: 05-18-2022 21:05-0400 Diastolic blood pressure 56 mm[Hg] [facility] Work Phone: 05-18-2022 21:05-0400 Heart rate 92 /min [facility] Work Phone: 05-18-2022 21:05-0400 Respiratory rate 16 /min [facility] Work Phone: 05-18-2022 21:05-0400 SaO2% (BldA) [Mass fraction] 98 % [facility] Work Phone: 05-18-2022 21:05-0400 Systolic blood pressure 116 mm[Hg] [facility] Work Phone: 05-07-2022 14:00-0400 Body weight 82.56 kg Nurse Wstr Work Phone: [facility] 05-07-2022 14:00-0400 Diastolic blood pressure 76 mm[Hg] Nurse Wstr Work Phone: [facility] 05-07-2022 14:00-0400 Systolic blood pressure 120 mm[Hg] Nurse Wstr Work Phone: [facility] 03-07-2022 08:45-0400 Body temperature 97.9 [degF] Jacobo Cheng MD Work Phone: [facility] 03-07-2022 08:45-0400 Diastolic blood pressure 67 mm[Hg] Jacobo Cheng MD Work Phone: [facility] 03-07-2022 08:45-0400 Heart rate 72 /min Jacobo Cheng MD Work Phone: [facility] 03-07-2022 08:45-0400 Respiratory rate 16 /min Jacobo Cheng MD Work Phone: [facility] 03-07-2022 08:45-0400 SaO2% (BldA) [Mass fraction] 99 % Jacobo Cheng MD Work Phone: [facility] 03-07-2022 08:45-0400 Systolic blood pressure 121 mm[Hg] Jacobo Cheng MD Work Phone: [facility] 03-07-2022 08:22-0400 Body height 165.1 cm Jacobo Cheng MD Work Phone: [facility] 03-07-2022 08:22-0400 Body weight 74.84 kg Jacobo Cheng MD Work Phone: [facility] 02-20-2022 01:08-0400 Diastolic blood pressure 74 mm[Hg] [facility] Work Phone: 02-20-2022 01:08-0400 Heart rate 74 /min [facility] Work Phone: 02-20-2022 01:08-0400 Respiratory rate 17 /min [facility] Work Phone: 02-20-2022 01:08-0400 SaO2% (BldA) [Mass fraction] 98 % [facility] Work Phone: 02-20-2022 01:08-0400 Systolic blood pressure 122 mm[Hg] [facility] Work Phone: 02-19-2022 21:22-0400 Body height 165.1 cm [facility] Work Phone: 02-19-2022 21:22-0400 Body mass index (BMI) [Ratio] 28.3 kg/m2 [facility] Work Phone: 02-19-2022 21:22-0400 Body temperature 97 [degF] [facility] Work Phone: 02-19-2022 21: Body weight 77.11 kg [facility] Work Phone: Encounters Encounter Date Encounter Type Care Provider Facility Start: 09-14-2025 End: 09-14-2025 ambulatory [facility] Facility:[facility] Start: 08-29-2025 End: 08-29-2025 [facility] Facility:[facility] Start: 08-29-2025 Encounter for other specified special examinations PORTILLO PIERCETMAN [facility] Start: 08-29-2025 Patient encounter procedure PORTILLO PIERCETMAN [facility] Start: 08-17-2025 End: 08-17-2025 Telemedicine consultation with patient Adele Gibson APRN.CNP Work Phone: Pain Management Start: 08-17-2025 End: 08-17-2025 ambulatory Adele Gibson APRN.CNP Work Phone: Pain Management Comment on above: 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 (Primary Dx); Foraminal stenosis of cervical region; Spinal stenosis of cervical region; Cervical myofascial pain syndrome Start: 07-26-2025 End: 07-26-2025 Specialty Pharmacy [facility]amor[facility] Comment on above: SPP Inflammatory Con ditions - Medication Refill (Cosentyx (week 4 of loading dose)) Start: 07-21-2025 End: 07-21-2025 ambulatory DAVID KILGORE Facility:[facility] Start: 07-21-2025 End: 07-21-2025 Patient encounter procedure Sunil Owen DO Work Phone: Neurology Comment on above: Chronic migraine wit hout aura, intractable, without status migrainosus (Primary Dx); Chronic daily headache; Bilateral occipital neuralgia; Intractable chronic migraine without aura and without status migrainosus; Migraine with aura and without status migrainosus, not intractable; Cervicogenic headache Start: 07-05-2025 End: 07-11-2025 ambulatory Adele Gibson APRN.[employer] Work Phone: Pain Management Comment on above: 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 (Primary Dx); Foraminal stenosis of cervical region; Cervical myofascial pain syndrome; Spinal stenosis of cervical region; NO SHOW Start: 07-05-2025 End: 07-05-2025 Telemedicine consultation with patient Adele Gibson APRN.[employer] Work Phone: Pain Management Start: 07-04-2025 End: 07-04-2025 ambulatory Adele Gibson APRN.[facility] Work Phone: Pain Management Comment on above: NO SHOW (Primary Dx) Start: 07-04-2025 End: 07-04-2025 Telemedicine consultation with patient Adele Gibson APRN.[facility] Work Phone: Pain Management Start: 06-08-2025 End: 06-08-2025 E-mail encounter from caregiver [facility] Provider [facility] Start: 06-08-2025 End: 06-08-2025 ambulatory Otto Matamoros [facility] Comment on above: SPP Inflammatory Con ditions - Discontinuation (Orencia) Cosentyx Insurance A pproval - Action Required Start: 06-02-2025 End: 06-02-2025 ambulatory Jacobo Cheng MD Work Phone: Pain Management Comment on above: Epidural injection Start: 05-31-2025 End: 05-31-2025 ambulatory Ajit Torer MD Work Phone: Rheumatology Comment on above: Steroids Start: 05-27-2025 ambulatory DAVID KILGORE Facil ity:[facility] Start: 05-24-2025 End: 05-24-2025 ambulatory Georgia Moore RN [facility] Comment on above: HYPERLIPIDEMIA Start: 05-18-2025 End: 05-18-2025 Patient encounter procedure Otto Matamoros [facility] Comment on above: SPP Inflammatory Con ditions - Treatment Referral (Cosentyx); Insurance Authorization ([place] submission pending) Start: 05-18-2025 End: 05-18-2025 Telephone encounter Ajit Torre MD Work Phone: Rheumatology Start: 05-18-2025 End: 05-18-2025 Telemedicine consultation with patient Ajit Torre MD Work Phone: Rheumatology Start: 05-18-2025 End: 05-18-2025 ambulatory Ajit Torre MD Work Phone: Rheumatology Comment on above: Ankylosing spondylit is of lumbosacral region (HCC) (Primary Dx); Inflammatory arthritis; Long-term use of immunosuppressant medication; Pain in joint, multiple sites; Chronic midline low back pain without sciatica Start: 05-02-2025 End: 05-03-2025 Follow-up encounter Ajit Torre MD Work Phone: Rheumatology Start: 05-02-2025 End: 05-02-2025 ambulatory AJIT TORRE Facility:[facility] Start: 05-02-2025 End: 05-02-2025 Subsequent hospital visit by physician [employer] [employer] [facility] (I-Stat/1.5t) Work Phone: Radiology Comment on above: Disorder of bone [M8 9.9] Start: 04-29-2025 End: 04-29-2025 Specialty Pharmacy Otto Matamoros [facility] Comment on above: SPP Inflammatory Con ditions - Medication Refill (Orencia [employer]) Start: 04-06-2025 End: 04-11-2025 Telephone encounter Sunil Owen DO Work Phone: [facility] Comment on above: Medication Problem Start: 04-06-2025 End: 04-07-2025 Patient encounter procedure Sunil Owen DO Work Phone: Neurology Comment on above: Chronic migraine wit hout aura, intractable, without status migrainosus (Primary Dx); Chronic daily headache; Intractable chronic migraine without aura and without status migrainosus; Migraine with aura and without status migrainosus, not intractable; Cervicalgia; Bilateral occipital neuralgia; Cervicogenic headache Refill Request ([facility] Managed Refill) Start: 04-06-2025 End: 04-06-2025 ambulatory SUNIL OWEN Facility:[facility] Start: 04-01-2025 End: 04-01-2025 Specialty Pharmacy Otto Matamoros [facility] Comment on above: SPP Inflammatory Con ditions - Medication Refill (Orencia [employer]) Start: 03-16-2025 End: 03-16-2025 Telephone encounter Portillo Mccallum MD Work Phone: General Surgery Start: 03-16-2025 ambulatory PORTILLO Cunningham ity:[facility] Start: 03-16-2025 End: 03-16-2025 Subsequent hospital visit by physician Portillo Mccallum MD Work Phone: Ambulatory Surgery Comment on above: Gastroesophageal ref lux disease, unspecified whether esophagitis present [K21.9] Start: 03-15-2025 End: 03-15-2025 [facility] Ajit Torre MD Work Phone: Rheumatology Comment on above: Inflammatory arthrit is (Primary Dx); Long-term use of immunosuppressant medication; Pain in joint, multiple sites; Disorder of bone; Chronic midline low back pain without sciatica Start: 03-03-2025 End: 03-03-2025 Specialty Pharmacy [facility] Comment on above: SPP Inflammatory Con ditions - Medication Refill (Orencia ClickJect ) Start: 02-25-2025 End: 02-25-2025 Telephone encounter Mar Harvey APRN.CNP Work Phone: [facility] Comment on above: Orders Start: 02-24-2025 End: 02-24-2025 Refill Sunil Owen DO Work Phone: Neurology Comment on above: Refill Request Start: 02-22-2025 End: 02-22-2025 ambulatory Beatriz Tamez [facility] Physical Therapy Comment on above: Low back pain, unspe cified back pain laterality, unspecified chronicity, unspecified whether sciatica present (Primary Dx); Radiculopathy, cervical region; Spinal stenosis of cervical region Start: 02-17-2025 End: 02-21-2025 ambulatory David Kilgore DO Work Phone: [facility] Comment on above: EMG Start: 02-17-2025 End: 02-21-2025 E-mail encounter from caregiver David Kilgore DO Work Phone: [facility] Start: 02-15-2025 End: 02-15-2025 ambulatory Beatriz Melissa PT [facility] Physical Therapy Comment on above: Low back pain, unspe cified back pain laterality, unspecified chronicity, unspecified whether sciatica present (Primary Dx); Radiculopathy, cervical region; Spinal stenosis of cervical region Start: 02-15-2025 End: 02-15-2025 ambulatory TRUNG SALAZAR Facility:[facility] Start: 02-15-2025 End: 02-15-2025 Patient encounter procedure Trung Salazar OD Work Phone: Ophthalmology Comment on above: Regular astigmatism of both eyes (Primary Dx); Dry eye syndrome of bilateral lacrimal glands Start: 02-11-2025 End: 02-11-2025 ambulatory DAVID KILGORE Neurology Comment on above: EMG Start: 02-11-2025 End: 02-11-2025 Patient encounter procedure Emg 1 Neur [facility] (Max Weight: 850) Neurology Start: 02-10-2025 End: 02-15-2025 ambulatory Sunil Owen DO Work Phone: Neurology Comment on above: Soma Start: 02-09-2025 End: 02-10-2025 ambulatory David Kilgore DO Work Phone: [facility] Comment on above: lab results Start: 02-09-2025 End: 02-10-2025 E-mail encounter from caregiver David Kilgore DO Work Phone: [facility] Start: 02-09-2025 End: 04-11-2025 Follow-up encounter David Kilgore DO Work Phone: [facility] Start: 02-08-2025 End: 02-08-2025 ambulatory Beatriz Melissa PT [facility] Comment on above: Low back pain, unspe cified back pain laterality, unspecified chronicity, unspecified whether sciatica present (Primary Dx); Radiculopathy, cervical region; Spinal stenosis of cervical region SPP Inflammatory Con ditions - Medication Refill (Orencia ClickJect) Start: 02-04-2025 End: 03-18-2025 Telephone encounter Janiya Ziegler APRN.CNP Work Phone: General Surgery Comment on above: 03-16-2025 EGD [place] Start: 02-04-2025 End: 02-04-2025 ambulatory DAVID KILGORE Facility:[facility] Start: 02-04-2025 End: 02-04-2025 Patient encounter procedure Janiya Ziegler APRN.CNP Work Phone: General Surgery Comment on above: Gastroesophageal ref lux disease, unspecified whether esophagitis present (Primary Dx); Dysphagia, unspecified type; Positive Helicobacter pylori serology Start: 02-03-2025 End: 02-16-2025 ambulatory Sunil Owen DO Work Phone: Neurology Comment on above: Botox Start: 02-01-2025 End: 02-01-2025 ambulatory Beatriz Melissa PT [facility] Comment on above: Spinal stenosis of c ervical region (Primary Dx); Radiculopathy, cervical region; Low back pain, unspecified back pain laterality, unspecified chronicity, unspecified whether sciatica present Start: 01-31-2025 End: 01-31-2025 Patient encounter procedure Eula Rm CNM Work Phone: OB/Gynecology Comment on above: PMS (premenstrual sy ndrome) (Primary Dx); Mood swings; Feeling of sadness Start: 01-25-2025 End: 01-25-2025 Telephone encounter Sunil Owen DO Work Phone: Neurology Comment on above: Insurance Authorizat ion (TRUDHESA); TRUDHESA, EHP Start: 01-25-2025 End: 01-25-2025 ambulatory Beatriz Melissa PT [facility] Comment on above: Spinal stenosis of c ervical region (Primary Dx); Radiculopathy, cervical region Start: 01-18-2025 End: 01-18-2025 ambulatory Beatriz Melissa PT [facility] Comment on above: Spinal stenosis of c ervical region (Primary Dx); Radiculopathy, cervical region Start: 01-17-2025 End: 01-17-2025 Specialty Pharmacy [facility] Comment on above: SPP Inflammatory Con ditions - Medication Refill (Orencia ClickJect) Start: 01-12-2025 End: 01-12-2025 ambulatory Ajit Torre MD Work Phone: Rheumatology Comment on above: Inflammatory arthrit is (Primary Dx); Long-term use of immunosuppressant medication; Pain in joint, multiple sites; Chronic midline low back pain without sciatica; Chronic neck pain; Myofascial muscle pain Start: 01-12-2025 End: 01-12-2025 Telemedicine consultation with patient Ajit Torre MD Work Phone: Rheumatology Start: 01-11-2025 End: 01-12-2025 Refill Sunil Owen DO Work Phone: Medical Records Comment on above: Refill Request ([facility] Managed Refill) Spinal stenosis of c ervical region (Primary Dx); Radiculopathy, cervical region Start: 01-07-2025 End: 01-11-2025 Telephone encounter Tracy Funes RN Work Phone: [facility] Comment on above: Insurance Authorizat ion; ajtammi Start: 01-06-2025 End: 01-06-2025 ambulatory AJIT TORRE Facility:[facility] Start: 01-06-2025 End: 01-06-2025 ambulatory DAVID KILGORE Facility:[facility] Start: 01-06-2025 End: 01-06-2025 Subsequent hospital visit by physician Mri Radio [facility] (I-Stat/1.5t) Work Phone: Radiology Comment on above: Thunderclap headache [G44.53] Encounter for screen ing mammogram for breast cancer [Z12.31] Start: 12-31-2024 End: 12-31-2024 Telephone encounter Sunil Owen DO Work Phone: Neurology Comment on above: Referral Request Start: 12-30-2024 End: 12-30-2024 ambulatory Sunil Owen DO Work Phone: Neurology Comment on above: Chronic migraine wit hout aura, intractable, without status migrainosus (Primary Dx); Chronic daily headache; Intractable chronic migraine without aura and without status migrainosus; Bilateral occipital neuralgia; Migraine with aura and without status migrainosus, not intractable; Cervicalgia; Cervicogenic headache; Spasm of muscle Start: 12-30-2024 End: 12-30-2024 Telemedicine consultation with patient Sunil Owen DO Work Phone: Neurology Start: 12-29-2024 End: 12-29-2024 Telephone encounter Tracy Funes RN Work Phone: [facility] Comment on above: Insurance Authorizat wade nunes Start: 12-23-2024 End: 12-28-2024 Specialty Pharmacy [facility] Comment on above: SPP Inflammatory Con ditions - Medication Refill (Orencia); Insurance Authorization ([place] renewal approved) Visit EGD Start: 12-15-2024 End: 12-15-2024 ambulatory Ajit Torre MD Work Phone: Rheumatology Comment on above: Orencia Start: 12-14-2024 End: 01-14-2025 ambulatory David Kilgore DO Work Phone: [facility] [place] Start: 12-10-2024 End: 12-22-2024 Telephone encounter David Kilgore DO Work Phone: [facility] [place] Start: 12-08-2024 End: 12-08-2024 ambulatory DAVID KILGORE Facility:[facility] Start: 12-08-2024 End: 12-08-2024 Patient encounter procedure David Kilgore DO Work Phone: [facility] [place] Comment on above: Routine physical exa mination (Primary Dx); Numbness and tingling of both legs; Paresthesia of both hands; Poor short term memory; Word finding difficulty; Worsening headaches; Thunderclap headache; Chest pain, unspecified type; Recurrent UTI (urinary tract infection); Vitamin D deficiency; Hypersomnolence; Fatigue, unspecified type; Hyperlipidemia, mixed Start: 12-08-2024 End: 12-08-2024 Physical examination David Kilgore DO Work Phone: [facility] Start: 11-29-2024 End: 11-30-2024 ambulatory Georgia Moore RN [facility] Coordinated Car e Comment on above: Pharmacy transfer Start: 11-29-2024 End: 12-02-2024 Coordination of care plan Georgia Moore RN [facility] Coordinat ed Care Comment on above: CARE COORDINATION Refill Request Start: 11-04-2024 End: 11-04-2024 ambulatory JACOBO CHENG Facility:[facility] Start: 11-02-2024 End: 11-02-2024 Telephone encounter Jacobo Cheng MD Work Phone: Pain Management Comment on above: Insurance Authorizat ion (Injection Procedure Denial) Start: 10-11-2024 End: 10-11-2024 ambulatory Beatriz Melissa PT [facility] Comment on above: Spinal stenosis of c ervical region (Primary Dx); Radiculopathy, cervical region Start: 10-10-2024 End: 10-10-2024 Orders Only Nadege Chung MD Work Phone: OB/Gynecology Start: 10-08-2024 End: 10-08-2024 ambulatory Elaine Velasco APRN.[employer]ED [employer]ICE BROKER Work Phone: OB/Gynecology Comment on above: UTI Acute flare Start: 10-07-2024 End: 10-07-2024 Telephone encounter David Kilgore DO Work Phone: Family Medicine [place] Start: 10-06-2024 End: 10-06-2024 E-mail encounter from caregiver Jacobo Cheng MD Work Phone: Pain Management Start: 10-06-2024 End: 10-08-2024 ambulatory Jacobo Cheng MD Work Phone: Pain Management Comment on above: 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 (Primary Dx); Foraminal stenosis of cervical region; Cervical myofascial pain syndrome Injection Procedure Refill Refill Request 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 (Primary Dx); Foraminal stenosis of cervical region; Radiculopathy, cervical region Start: 10-06-2024 End: 10-06-2024 Telemedicine consultation with patient Jacobo Cheng MD Work Phone: Pain Management Start: 09-29-2024 End: 09-29-2024 ambulatory Beatriz Melissa [facility] Physical Therapy Comment on above: Spinal stenosis of c ervical region (Primary Dx); Radiculopathy, cervical region Start: 09-10-2024 End: 09-10-2024 ambulatory [facility] Comment on above: Orencia Approval - A ction needed Start: 09-10-2024 End: 09-10-2024 E-mail encounter from caregiver [facility] Pod[facility] Start: 09-07-2024 End: 09-07-2024 ambulatory Beatriz Melissa [facility] Physical Therapy Comment on above: Spinal stenosis of c ervical region; Radiculopathy, cervical region Start: 09-01-2024 End: 09-01-2024 Patient encounter procedure [facility] Comment on above: SPP Inflammatory Con ditions - Treatment Referral (Orebharath); Insurance Authorization ([place] Submission Pending) Start: 09-01-2024 End: 09-01-2024 ambulatory Ajit Torre MD Work Phone: Rheumatology Comment on above: Inflammatory arthrit is (Primary Dx); Seronegative rheumatoid arthritis (HCC); Long-term use of immunosuppressant medication; Pain in joint, multiple sites Start: 09-01-2024 End: 09-01-2024 Telemedicine consultation with patient Ajit Torre MD Work Phone: Rheumatology Start: 08-28-2024 End: 08-30-2024 ambulatory Ajit Torre MD Work Phone: Rheumatology Start: 08-28-2024 End: 08-30-2024 Patient encounter procedure Ajit Torre MD Work Phone: Rheumatology Comment on above: Upcoming appointment Start: 08-25-2024 End: 08-25-2024 ambulatory Maddie Moraes APRN.CNP Work Phone: OB/Gynecology Comment on above: Medication Start: 08-18-2024 End: 08-18-2024 ambulatory Jacobo Cheng MD Work Phone: Pain Management Comment on above: Results and Recommen dations Start: 08-18-2024 End: 08-18-2024 E-mail encounter from caregiver Jacobo Cheng MD Work Phone: Pain Management Start: 08-18-2024 End: 08-20-2024 Telephone encounter Jacobo Cheng MD Work Phone: Pain Management Comment on above: Results (Cervical MR I) Start: 08-17-2024 End: 08-17-2024 Subsequent hospital visit by physician Mri Radio [facility] (I-Stat/1.5t) Work Phone: Radiology Comment on above: Spinal stenosis of c ervical region [M48.02] Start: 08-12-2024 End: 08-12-2024 Specialty Pharmacy [facility] Comment on above: SPP Inflammatory Con ditions - Medication Refill (Simponi) Start: 08-04-2024 End: 08-04-2024 ambulatory [facility] Start: 08-04-2024 End: 08-04-2024 Follow-up encounter [facility] Comment on above: SPP Inflammatory Con ditions - Follow-up (Simponi); Insurance Authorization ([place] Renew[place] submitted) Start: 07-22-2024 End: 07-27-2024 Refill Ajit Torre MD Work Phone: [facility] Comment on above: Refill Request Start: 07-21-2024 End: 07-22-2024 Refill Ajit Torre MD Work Phone: Rheumatology Comment on above: Refill Request Start: 07-13-2024 Specialty Pharmacy [facility] Comment on above: SPP Inflammatory Con ditions - Medication Refill (Simponi - NCA 01/2025) Start: 07-08-2024 ambulatory Jacobo Cheng MD Work Phone: Pain Management Comment on above: MRI Appeal Start: 07-07-2024 End: 07-07-2024 Orders Only Elaine Velasco APRN.[facility] Work Phone: OB/Gynecology Comment on above: Dysuria (Primary Dx) Dysuria (Primary Dx) ; Urinary urgency; Urinary frequency Start: 06-25-2024 End: 06-25-2024 ambulatory Beatriz Melissa [facility] Physical Therapy Comment on above: Neck pain (Primary D x) MRI Start: 06-24-2024 Telephone encounter Jacobo singleton MD Work Phone: Pain Management Comment on above: Insurance Authorizat ion (MRI Denial ) Start: 06-18-2024 Specialty Pharmacy [facility] Comment on above: SPP Inflammatory Con ditions - Medication Refill (Simponi - NCA 01/2025) Start: 06-16-2024 Orders Only Elaine JEROME RN.[facility] Work Phone: OB/Gynecology Comment on above: Screening for thyroi d disorder (Primary Dx); Screening for lipid disorders Start: 06-07-2024 ambulatory Georgia Moore RN [facility] Coordinated Care Start: 06-07-2024 Coordination of care plan Georgia trivedi RN P Coordinated Care Comment on above: CARE COORDINATION Start: 06-01-2024 End: 06-01-2024 ambulatory Beatriz Melissa [facility] Physical Therapy Comment on above: Neck pain (Primary D x); Chronic neck pain; Myofascial muscle pain Start: 05-20-2024 End: 05-20-2024 ambulatory Beatriz Melissa [facility] Physical Therapy Comment on above: Neck pain (Primary D x) Start: 05-19-2024 End: 05-19-2024 Patient encounter procedure Jacobo Cheng MD Work Phone: Pain Management Comment on above: Spinal stenosis of c ervical region (Primary Dx); Radiculopathy, cervical region Start: 05-10-2024 End: 05-10-2024 ambulatory Ajit Torre MD Work Phone: Rheumatology Comment on above: Inflammatory arthrit is (Primary Dx); Long-term use of immunosuppressant medication; Pain in joint, multiple sites; Seronegative rheumatoid arthritis (HCC) Start: 05-10-2024 End: 05-10-2024 Telemedicine consultation with patient Ajit Torre MD Work Phone: Rheumatology Start: 05-10-2024 Telephone encounter Ajit Dobbins MD Work Phone: Rheumatology Start: 05-05-2024 Orders Only Elaine JEROME RN.[employer] Work Phone: OB/Gynecology Start: 05-04-2024 End: 05-04-2024 ambulatory Beatriz Tamez [facility] Physical Therapy Comment on above: Neck pain (Primary D x) Start: 04-27-2024 Orders Only Perri aCrrillo APRN.[employer]ICE BROKER Work Phone: OB/Gynecology Start: 04-25-2024 ambulatory Ajit Torre MD Work Phone: Rheumatology Start: 04-25-2024 Patient encounter procedure Ajit Torre MD Work Phone: Rheumatology Comment on above: Missed Appointment Start: 04-12-2024 Specialty Pharmacy [facility] Comment on above: SPP Inflammatory Con ditions - Medication Refill (Simponi) Start: 04-09-2024 Telephone encounter Tracy goss RN Work Phone: [facility] Comment on above: Insurance Authorizat ion (AJOVY (fremanezumab-vfrm) injection 225MG/1.5ML auto-injectors/) Start: 03-25-2024 Telephone encounter Jacobo singleton MD Work Phone: Pain Management Comment on above: Appointment Start: 03-18-2024 Patient Msg [facility] Comment on above: Simponi Refill - Act ion Required! Refill Request ([facility] managed refills) Insurance Authorizat ion (Diclofenac Potassium 50 mg Pwpk) Start: 03-12-2024 Specialty Pharmacy [facility] Comment on above: SPP Inflammatory Con ditions - Medication Refill (Simponi) Start: 03-07-2024 E-mail encounter fro m caregiver Jacobo Cheng MD [facility] Start: 03-07-2024 Patient encounter procedure Jacobo Cheng MD Work Phone: Pain Management Comment on above: Appointment Request Start: 03-01-2024 End: 03-01-2024 Manual pelvic examination Ob Ultrasound Work Phone: OB/Gynecology Comment on above: Pelvic Pain Start: 03-01-2024 End: 03-01-2024 Patient encounter procedure [employer] [facility] Ultrasound Work Phone: [facility] Start: 02-16-2024 Specialty Pharmacy [facility] Comment on above: SPP Inflammatory Con ditions - Medication Refill (Simponi) Start: 02-11-2024 Telephone encounter Mar Mejia felicitamario BEAUTY CULTURIST.[employer]ICE BROKER Work Phone: [facility] Comment on above: Orders Start: 01-21-2024 Specialty Pharmacy [facility] Comment on above: SPP Inflammatory Con ditions - Medication Refill (Simponi) Start: 01-13-2024 ambulatory Jacobo Cheng MD Work Phone: Pain Management Comment on above: Injection Start: 01-05-2024 ambulatory Otto [facility]amor[facility] Start: 01-05-2024 Follow-up encounter Otto [facility]am[facility] Comment on above: SPP Inflammatory Con ditions - Follow-up (Simponi); Insurance Authorization ([place] Renewal submission pending) Start: 01-02-2024 End: 01-02-2024 Patient encounter procedure Kyra Duncan BEAUTY CULTURIST.[employer] RICE BROKER Work Phone: Neurology Comment on above: Intractable chronic migraine without aura and without status migrainosus (Primary Dx) Start: 11-14-2023 Orders Only Elaine JEROME RN.[employer]OKER Work Phone: OB/Gynecology Comment on above: Unintended weight ga in; BMI 30.0-30.9,adult Start: 11-10-2023 Specialty Pharmacy [facility] Comment on above: SPP Inflammatory Con ditions - Medication Refill (Simponi) Start: 10-15-2023 Specialty Pharmacy [facility] Comment on above: SPP Inflammatory Con ditions - Medication Refill (Simponi) Start: 09-19-2023 Telephone encounter Sue Concepcion MD Work Phone: [facility] Start: 09-18-2023 Refill Sea Almendarez APRN, .CNP Work Phone: Preventive Cardiology Comment on above: Refill Request ([facility] Managed) Start: 09-17-2023 Refill Wisam Chung PA-C Work Phone: Rheumatology Comment on above: Refill Request Start: 09-16-2023 End: 09-16-2023 ambulatory Beatriz Melissa [facility] Physical Therapy Comment on above: Neck pain (Primary D x); Myofascial muscle pain; Right hip impingement syndrome Start: 09-09-2023 End: 09-09-2023 ambulatory Ajit Torre MD Work Phone: Rheumatology Comment on above: Inflammatory arthrit is (Primary Dx); Long-term use of immunosuppressant medication Start: 09-09-2023 End: 09-09-2023 Telemedicine consultation with patient Ajit Torre MD Work Phone: [facility] Start: 08-21-2023 End: 08-21-2023 ambulatory Beatriz Melissa 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 Physical Therapy Comment on above: Neck pain (Primary D x); Myofascial muscle pain; Right hip impingement syndrome Start: 08-14-2023 End: 08-14-2023 Nursing evaluation of patient and report Nurse Stonecutter Assistant [facility] Work Phone: OB/Gynecology Comment on above: Healthcare kishan sidhu (Primary Dx) Start: 08-14-2023 End: 08-14-2023 Patient encounter status Nurse Stonecutter Assistant [facility] Work Phone: [facility] Start: 08-11-2023 End: 08-11-2023 ambulatory Mikal Bailey PT Work Phone: [facility] Comment on above: Neck pain (Primary D x); Myofascial muscle pain; Right hip impingement syndrome Start: 07-31-2023 End: 07-31-2023 ambulatory Mikal Bailey PT Work Phone: [facility] Comment on above: Neck pain (Primary D x); Myofascial muscle pain; Right hip impingement syndrome Start: 07-30-2023 End: 07-30-2023 ambulatory Dian WHITESIDE-C Work Phone: [employer] Comment on above: Tear of right acetab ular labrum, subsequent encounter (Primary Dx) Start: 07-30-2023 End: 07-30-2023 Telemedicine consultation with patient Dian WHITESIDE-C Work Phone: [facility] Start: 07-25-2023 End: 07-25-2023 ambulatory Ajit Torre MD Work Phone: Rheumatology Comment on above: Medication Hyperlipidemia LDL g oal <100 (Primary Dx); Statin intolerance; Elevated Lp(a); Family history of hyperlipidemia Start: 07-25-2023 End: 07-25-2023 Telemedicine consultation with patient Melva M Tj MORRISONMILLED RICE BROKER Work Phone: [facility] Start: 07-24-2023 End: 07-24-2023 ambulatory Mikal Bailey PT Work Phone: [facility] Comment on above: Neck pain (Primary D x); Myofascial muscle pain; Right hip impingement syndrome Start: 07-23-2023 Telephone encounter Sunil Davies on DO Work Phone: Neurology Comment on above: Referral Request Start: 07-22-2023 End: 07-22-2023 Telemedicine consultation with patient Sunil Owen DO Work Phone: [facility] Start: 07-22-2023 End: 07-22-2023 ambulatory Mikal Bailey PT Work Phone: [facility] Comment on above: Neck pain (Primary D x); Myofascial muscle pain; Right hip impingement syndrome Migraine with aura a nd without status migrainosus, not intractable (Primary Dx); Chronic migraine without aura, intractable, without status migrainosus; Intractable chronic migraine without aura and without status migrainosus; Bilateral occipital neuralgia; Cervicalgia Start: 07-18-2023 Specialty Pharmacy [facility] Comment on above: SPP Inflammatory Con ditions - Medication Refill (Simponi) Start: 07-17-2023 End: 07-17-2023 ambulatory Mikal Bailey PT Work Phone: [facility] Comment on above: Neck pain (Primary D x); Myofascial muscle pain; Right hip impingement syndrome Start: 07-10-2023 End: 07-10-2023 ambulatory Beatriz Melissa [facility] Physical Therapy Comment on above: Neck pain (Primary D x); Myofascial muscle pain; Right hip impingement syndrome Start: 07-03-2023 End: 07-03-2023 ambulatory Beatriz Melissa [facility] Physical Therapy Comment on above: Neck pain (Primary D x); Myofascial muscle pain; Right hip impingement syndrome Start: 06-30-2023 Refill Dian hunt PA-C Work Phone: [facility] Comment on above: Refill Request Start: 06-26-2023 End: 06-26-2023 ambulatory Beatriz Melissa PT [facility] Comment on above: Neck pain (Primary D x); Myofascial muscle pain; Right hip impingement syndrome Start: 06-26-2023 End: 06-26-2023 Patient encounter procedure Maddie Moraes APRN.CNP Work Phone: OB/Gynecology Comment on above: PCOS (polycystic ova sammie syndrome) (Primary Dx); Hyperlipidemia, unspecified hyperlipidemia type; Impaired fasting glucose; Inflammatory arthritis; Vitamin D deficiency; Thinning hair; Class 1 obesity with serious comorbidity and body mass index (BMI) of 32.0 to 32.9 in adult, unspecified obesity type Start: 06-25-2023 ambulatory Dian hunt PA-C Work Phone: [facility] Start: 06-25-2023 Follow-up encounter Dian Sierra PA-C Work Phone: [facility] Comment on above: Follow up medication Start: 06-24-2023 Telephone encounter Tracy goss RN Work Phone: [facility] Comment on above: Insurance Authorizat ion (AJOVY (fremanezumab-vfrm) injection 225MG/1.5ML auto-injectors/) Start: 06-23-2023 Refill Ajit Torre MD Work Phone: Rheumatology Comment on above: Refill Request ([facility] Managed Refill) Medication Problem ( valtrex) Start: 06-19-2023 End: 06-19-2023 ambulatory Beatriz Melissa PT [facility] Comment on above: Neck pain (Primary D x); Myofascial muscle pain; Right hip impingement syndrome Restarting medicatio n Start: 06-16-2023 End: 06-16-2023 ambulatory Beatriz Melissa PT [facility] Comment on above: Neck pain (Primary D x); Myofascial muscle pain; Right hip impingement syndrome Start: 06-16-2023 Coordination of care plan Georgia trivedi RN P Coordinated Care Comment on above: CARE COORDINATION Start: 06-13-2023 End: 06-13-2023 ambulatory Aryan Childers PT Work Phone: [facility] Comment on above: Neck pain (Primary D x); Myofascial muscle pain; Right hip impingement syndrome; Pain in right hip Start: 06-12-2023 End: 06-12-2023 ambulatory Otto Matamoros [facility] MAIN Start: 06-12-2023 Follow-up encounter Otto Matamoros [facility] Comment on above: SPP Inflammatory Con ditions - Follow-up (Simponi); Insurance Authorization ([place] Renew[place] Submitted) Start: 06-12-2023 Refill Dian hunt PA-C Work Phone: [facility] Comment on above: Med Change Request Start: 06-11-2023 Orders Only Lloyd Griffith ck AT Work Phone: [facility] Comment on above: Tear of right acetab ular labrum, subsequent encounter (Primary Dx) Start: 06-07-2023 End: 06-07-2023 Admission to establishment [facility] Start: 06-07-2023 End: 06-07-2023 ambulatory Pac Virtual Pre Anesthesia Comment on above: Pre-op evaluation (P rimary Dx); PVC's (premature ventricular contractions); Migraine with aura and without status migrainosus, not intractable; Hypercholesteremia; Inflammatory arthritis Start: 06-07-2023 End: 06-07-2023 [facility] Start: 06-06-2023 Telephone encounter Brandi Powers APRN.MILLED RICE BROKER Work Phone: Pre Anesthesia Comment on above: pacc reschedule Start: 06-04-2023 Telephone encounter Dianne acevedo PA-C Work Phone: Pre Anesthesia Comment on above: No Show Start: 05-29-2023 Telephone encounter Emre ramires MD Work Phone: [facility] [place] Comment on above: Schedule Surgery Start: 05-21-2023 Specialty Pharmacy Otto Matamoros [facility] Comment on above: SPP Inflammatory Con ditions - Medication Refill (Simponi) Start: 05-20-2023 Refill Wisam Chung PA-C Work Phone: Rheumatology Comment on above: Refill Request Start: 05-15-2023 End: 05-15-2023 Subsequent hospital visit by physician Xr Transportation Bl Radiology Comment on above: Tear of right acetab ular labrum, subsequent encounter [S73.191D] Start: 05-09-2023 Admission to [facility] Lloyd Patterson AT Work Phone: [facility] Comment on above: Schedule Surgery (Ri ght hip arthroscopy - labral repair) Start: 05-09-2023 ambulatory Lloyd Griffith ck AT Work Phone: [facility] [address] Start: 05-01-2023 Refill Sue frias MD Work Phone: Neurology Comment on above: Refill Request Start: 04-30-2023 Refill Maddie JEROME RN.MILLED RICE BROKER Work Phone: OB/Gynecology Comment on above: Med Change Request Start: 04-30-2023 Telephone encounter Sue Concepcion MD Work Phone: Neurology Comment on above: appointment question Start: 04-29-2023 Refill Maddie JEROME RN.MILLED RICE BROKER Work Phone: OB/Gynecology Comment on above: Med Change Request Start: 04-29-2023 Refill Mar louise BEAUTY CULTURISTVesnaMILLED RICE BROKER Work Phone: [facility] [place] Comment on above: Refill Request Start: 04-04-2023 ambulatory [facility] e[facility] Comment on above: Friendly Reminder Start: 04-04-2023 E-mail encounter fro m caregiver [facility] Provider ANGI JOYNER Start: 04-03-2023 Admission to [facility] Provider [facility] Comment on above: Surgery dates with Osman De Leon Start: 04-03-2023 E-mail encounter fro m caregiver [facility] Provider [facility] [address] Start: 04-02-2023 ambulatory Otto Matamoros [facility] Start: 04-02-2023 Telephone encounter Eula garner APRN.CNM Work Phone: OB/Gynecology Comment on above: Orders SPP Inflammatory Con ditions - Medication Refill (Simponi) Start: 04-01-2023 Telephone encounter Maddie brunner APRN.MILLED RICE BROKER Work Phone: OB/Gynecology Comment on above: Medication Problem; New Medication Start: 03-25-2023 End: 03-25-2023 ambulatory Ajit Torre MD Work Phone: Rheumatology Comment on above: Inflammatory arthrit is (Primary Dx); Long-term use of immunosuppressant medication; Pain in joint, multiple sites Start: 03-25-2023 End: 03-25-2023 Telemedicine consultation with patient Ajit Torre MD Work Phone: [facility] Start: 03-20-2023 ambulatory Ajit Torre MD Work Phone: [facility] Start: 03-20-2023 Patient encounter procedure Ajit Torre MD Work Phone: Rheumatology Comment on above: Appointment change t o virtual Start: 03-07-2023 Telephone encounter Emre ramires MD Work Phone: [facility] [place] Comment on above: Schedule Surgery Start: 02-28-2023 Telephone encounter Emre ramires MD Work Phone: [facility] [place] Comment on above: Schedule Surgery Start: 02-24-2023 ambulatory Otto Matamoros [facility] Start: 02-24-2023 Patient encounter procedure Otto Matamoros [facility] Comment on above: SPP Inflammatory Con ditions - Treatment Referral (Simponi); Insurance Authorization (PA submission pending ) Refill Request Start: 02-19-2023 End: 02-19-2023 Orders Only Jacobo Cheng MD Work Phone: Pain Management Comment on above: Thoracic spondylosis with radiculopathy (Primary Dx) Radiculopathy, cervi storm region (Primary Dx); Paresthesia of right arm; Numbness and tingling in right hand Impaired fasting glu cose (Primary Dx); PCOS (polycystic ovarian syndrome); Dyslipidemia Start: 02-17-2023 End: 02-17-2023 ambulatory Beatriz Tamez [facility] Physical Therapy Comment on above: Right hip impingemen t syndrome (Primary Dx); Chronic neck pain; Myofascial muscle pain Start: 02-04-2023 Orders Only Wisam Chung PA-C Work Phone: Rheumatology Comment on above: Follow up Start: 01-23-2023 Telephone encounter Jacobo singleton MD Work Phone: Pain Management Comment on above: Appointment Start: 01-22-2023 Orders Only Mar Mejia dani MORRISONMILLED RICE BROKER Work Phone: [facility] Comment on above: Abnormal thyroid blo od test (Primary Dx); Fatigue, unspecified type; Hyponatremia; Myalgia; Myofascial muscle pain Start: 01-09-2023 End: 01-09-2023 [facility] Sue Concepcion MD Work Phone: Neurology Comment on above: Temporomandibular debbie int disorder (Primary Dx); Chronic migraine without aura, with intractable migraine, so stated, with status migrainosus Start: 01-08-2023 Telephone encounter Sue Concepcion MD Work Phone: Neurology Comment on above: LMTCB Start: 12-22-2022 ambulatory Emre De Leon MD Work Phone: [facility] Start: 12-22-2022 Follow-up encounter Emre ramires MD Work Phone: [facility] Comment on above: Follow up Start: 12-19-2022 Telephone encounter Shirley charles RD Work Phone: [facility] Comment on above: F/U 1 month (Schedul ed 4 week follow up with Samm barreto RD at [facility]) Start: 12-19-2022 End: 12-19-[address] Work Phone: [facility] Comment on above: Dyslipidemia; PCOS (polycystic ovarian syndrome); Impaired fasting blood sugar; Obesity, Class I, BMI 30-34.9 Inflammatory arthrit is (Primary Dx) Start: 12-19-2022 End: 12-19-2022 Telemedicine consultation with patient Shirley Barreto RD Work Phone: [facility] Start: 11-28-2022 ambulatory Macie Dai MD Work Phone: Endocrinology Comment on above: Labs Start: 11-28-2022 Telephone encounter Shirley charles RD Work Phone: Endocrinology Comment on above: Appointment Cancelle d Start: 11-26-2022 ambulatory Georgia Moroe RN [facility] Managed Care Start: 11-26-2022 Coordination of care plan Georgia trivedi RN [facility] Coordinated Care Comment on above: CARE COORDINATION Start: 11-21-2022 End: 11-21-2022 ambulatory Lani Xavier MD Work Phone: Endocrinology Comment on above: Impaired fasting blo od sugar (Primary Dx); PCOS (polycystic ovarian syndrome); Dyslipidemia; Obesity, Class I, BMI 30-34.9 Start: 11-21-2022 End: 11-21-2022 Telemedicine consultation with patient Lani Xavier MD Work Phone: [facility] Start: 11-21-2022 Refill Lani stringer MD Work Phone: Endocrinology Comment on above: Med Change Request; Refill Request Start: 11-19-2022 End: 11-19-2022 ambulatory Nancy Del Valle APRN.CNP Work Phone: Functional Medicine Comment on above: Deficiency of multip le nutrient elements (Primary Dx); Bloating; Constipation, unspecified constipation type Start: 11-19-2022 End: 11-19-2022 Telemedicine consultation with patient Nancy Del Valle APRN.MILLED RICE BROKER Work Phone: [facility] Start: 11-14-2022 End: 11-14-2022 ambulatory Wisam Chung PA-C Work Phone: Rheumatology Comment on above: Inflammatory arthrit is (Primary Dx); Long-term use of immunosuppressant medication Start: 11-14-2022 End: 11-14-2022 Telemedicine consultation with patient Wisam Dunnser PA-C Work Phone: [facility] Start: 11-07-2022 End: 11-07-2022 Telemedicine consultation with patient Lorena Russo [employer] Work Phone: [facility] Start: 11-07-2022 End: 11-07-2022 ambulatory Emre De Leon MD Work Phone: [employer] [facility] Comment on above: Physical Therapy Obesity, Class I, BM I 30-34.9 (Primary Dx) Start: 11-06-2022 End: 11-06-2022 ambulatory Emre De Leon MD Work Phone: [facility] Comment on above: Acetabular labrum te ar, right, subsequent encounter (Primary Dx); Right hip impingement syndrome; Pain in left hip Start: 11-06-2022 End: 11-06-2022 Telemedicine consultation with patient Emre De Leon MD Work Phone: [facility] Start: 11-05-2022 End: 11-05-2022 ambulatory Sea Almendarez APRN.MILLED RICE BROKER Work Phone: Preventive Cardiology Comment on above: Family history of hy perlipidemia (Primary Dx); Hyperlipidemia LDL goal <100; Elevated Lp(a); Inflammatory arthritis Start: 11-05-2022 End: 11-05-2022 Telemedicine consultation with patient Sea Almendarez APRN.MILLED RICE BROKER Work Phone: [facility] Start: 10-31-2022 End: 10-31-2022 ambulatory Pablito Orozco [employer] [facility] Endocrin[facility] Start: 10-23-2022 End: 10-23-2022 ambulatory Lani Xavier MD Work Phone: Endocrinology Comment on above: Dyslipidemia (Primar y Dx); PCOS (polycystic ovarian syndrome); Impaired fasting blood sugar; Obesity, Class I, BMI 30-34.9 Start: 10-23-2022 End: 10-23-2022 Telemedicine consultation with patient Lani Xavier MD Work Phone: [facility] Start: 10-16-2022 ambulatory Macie Dai MD Work Phone: [facility] Start: 10-16-2022 Follow-up encounter Macie Dai MD Work Phone: Endocrinology Comment on above: Follow up Start: 10-15-2022 End: 10-15-2022 ambulatory Treatment Rm 10 Dirk [facility] Work Phone: Hematology/Oncology Comment on above: Inflammatory arthrit is (Primary Dx) Start: 10-14-2022 Patient Update Jennifer Grossman [facility] Comment on above: Medication Update (R efill Auth Consent) Orders (/) Start: 10-11-2022 ambulatory Sue frias MD Work Phone: [facility]HADIJ[facility] Start: 10-11-2022 Follow-up encounter Sue Concepcion MD Work Phone: Neurology Comment on above: Follow up Start: 10-10-2022 Refill Sue frias MD Work Phone: Neurology Comment on above: Refill Request Start: 10-07-2022 Telephone encounter Macie Dai MD Work Phone: [facility] Comment on above: Insurance Authorizat ion (OZEMPIC 0.25 mg or 0.5 mg(2 mg/1.5 mL) pen ) Start: 10-05-2022 End: 10-05-2022 ambulatory Macie Dai MD Work Phone: Endocrinology Comment on above: Abnormal weight gain (Primary Dx); Flushing; BMI 30.0-30.9,adult; Abnormal thyroid blood test; Insulin resistance; Impaired fasting glucose Start: 10-05-2022 End: 10-05-2022 Telemedicine consultation with patient Macie Dai MD Work Phone: [facility] Start: 10-03-2022 End: 10-03-2022 Telephone encounter Maddie Moraes APRN.CNP Work Phone: OB/Gynecology Comment on above: Patient Question Chronic migraine wit hout aura, intractable, without status migrainosus (Primary Dx); Temporomandibular joint disorder; Cervicalgia; Chronic migraine without aura, with intractable migraine, so stated, with status migrainosus Start: 10-03-2022 End: 10-03-2022 Telemedicine consultation with patient Sue Concepcion MD Work Phone: [facility] LUCIO [facility] Start: 10-03-2022 End: 10-03-2022 Subsequent hospital visit by physician Karley Transportation (Lg Bore/3t) Radiology Comment on above: Right hip impingemen t syndrome [M25.851] Start: 10-01-2022 ambulatory Josefa JEROME RN.MILLED RICE BROKER Work Phone: [facility] Start: 10-01-2022 Follow-up encounter Josefa barrios APRN.MILLED RICE BROKER Work Phone: Preventive Cardiology Comment on above: Follow up Start: 09-13-2022 End: 09-13-2022 ambulatory Nancy Eligio EDWARDS.MILLED RICE BROKER Work Phone: Functional Medicine Comment on above: Hot flashes (Primary Dx); Bloating; PCOS (polycystic ovarian syndrome) Start: 09-13-2022 End: 09-13-2022 Telemedicine consultation with patient Nancy Del Valle JERRY.MILLED RICE BROKER Work Phone: [facility] Start: 09-08-2022 ambulatory Emre De Leon MD Work Phone: [facility] [address] Start: 09-08-2022 Follow-up encounter Emre ramires MD Work Phone: [facility] Comment on above: Follow up Start: 09-05-2022 End: 09-05-2022 ambulatory Beatriz Melissa PT [facility] Comment on above: Right hip impingemen t syndrome (Primary Dx); Chronic neck pain; Myofascial muscle pain Start: 09-03-2022 End: 09-03-2022 ambulatory Zari Carter PT Work Phone: [facility] Comment on above: Right hip impingemen t syndrome (Primary Dx); Chronic neck pain; Myofascial muscle pain Start: 08-28-2022 End: 08-28-[address] Work Phone: Functional Medicine Comment on above: Insulin resistance ( Primary Dx); Dietary counseling and surveillance Start: 08-28-2022 End: 08-28-2022 Telemedicine consultation with patient Jina Singer CASSIE Work Phone: [facility] Start: 08-27-2022 End: 08-27-2022 ambulatory Beatriz Tamez [facility] Physical Therapy Comment on above: Right hip impingemen t syndrome (Primary Dx); Chronic neck pain; Myofascial muscle pain Start: 08-20-2022 End: 08-20-2022 ambulatory Treatment Rm 4 Dirk [facility] Work Phone: Hematology/Oncology Comment on above: Inflammatory arthrit is (Primary Dx) Right hip impingemen t syndrome (Primary Dx); Chronic neck pain; Myofascial muscle pain Start: 08-19-2022 ambulatory Ajit Torre MD Work Phone: Rheumatology Comment on above: Medication Start: 08-19-2022 Refill Dane Garg APRN.CNP Work Phone: Rheumatology Comment on above: Refill Request Start: 08-07-2022 ambulatory Ajit Torre MD Work Phone: [facility] Start: 08-07-2022 Follow-up encounter Ajit Dobbins MD Work Phone: Rheumatology Comment on above: Follow up appt Start: 08-07-2022 End: 08-07-2022 Patient encounter procedure Ajit Torre MD Work Phone: Rheumatology Comment on above: Inflammatory arthrit is (Primary Dx); Long-term use of immunosuppressant medication; Pain in joint, multiple sites Start: 08-06-2022 Orders Only Meagan FAJARDO Work Phone: Dentistry Start: 08-02-2022 End: 08-02-2022 Patient encounter procedure Emre De Leon MD Work Phone: [facility] Comment on above: Right hip impingemen t syndrome Start: 08-02-2022 End: 08-02-2022 Subsequent hospital visit by physician Xr Transportation Bl Radiology Comment on above: Pain in right hip [M 25.551] Start: 07-29-2022 End: 07-29-2022 Patient encounter procedure Trung Brielle Salazar OD Work Phone: Ophthalmology Comment on above: Regular astigmatism of both eyes (Primary Dx); Dry eye syndrome of bilateral lacrimal glands Pain in right hip (P rimary Dx) Start: 07-24-2022 End: 07-24-2022 ambulatory Beatriz Melissa PT [facility] Comment on above: Myofascial muscle pa in (Primary Dx); Chronic neck pain Start: 07-22-2022 End: 07-22-2022 ambulatory Treatment Rm 9 Dirk [facility] Work Phone: Hematology/Oncology Comment on above: Radiculopathy of cer vical region (Primary Dx); Inflammatory arthritis Start: 07-22-2022 End: 07-22-2022 Subsequent hospital visit by physician Samson [facility] Work Phone: Radiology Comment on above: Encounter for long-t erm (current) use of medications [Z79.899] Start: 07-18-2022 End: 07-18-2022 [facility] Sue Concepcion MD Work Phone: Neurology Comment on above: Chronic migraine wit hout aura, with intractable migraine, so stated, with status migrainosus (Primary Dx); Temporomandibular joint disorder; Cervicalgia Insurance Authorizat ion (Reyvow 100mg) Start: 07-12-2022 ambulatory Sue frias MD Work Phone: Neurology Comment on above: infusions in Start: 07-09-2022 ambulatory Wisam Chung PA-C Work Phone: Rheumatology Comment on above: TB test Results SPP Inflammatory Con ditions - Discontinuation (Enbrel SureClick) Start: 07-09-2022 E-mail encounter pilar m caregiver Wisam WHITESIDE-C Work Phone: [facility] Start: 07-09-2022 Follow-up encounter Josefa barrios APRN.MILLED RICE BROKER Work Phone: Preventive Cardiology Comment on above: Visit Follow up Start: 07-08-2022 ambulatory Otto Matamoros [facility] Start: 07-08-2022 Follow-up encounter Otto Calixto [facility] Comment on above: SPP Inflammatory Con ditions - Follow-up (Amy Prakash); Insurance Authorization ([place] Renewal submission pending) Start: 07-05-2022 End: 07-05-2022 ambulatory Josefa Marvin MILLED RICE BROKER Work Phone: Preventive Cardiology Comment on above: Hyperlipidemia LDL g oal <100 (Primary Dx); Family history of hyperlipidemia; Elevated Lp(a) Encounter for long-t erm (current) use of medications (Primary Dx) Start: 07-05-2022 End: 07-05-2022 Telemedicine consultation with patient Josefa Wong JERRY.MILLED RICE BROKER Work Phone: [facility] Start: 07-02-2022 ambulatory Wisam Chung PA-C Work Phone: [facility] Start: 07-02-2022 Follow-up encounter Wisam hyde PA-C Work Phone: Rheumatology Comment on above: Follow up Start: 06-27-2022 ambulatory Ajit Torre MD Work Phone: [facility] Start: 06-27-2022 Follow-up encounter Ajit Dobbins MD Work Phone: Rheumatology Comment on above: Follow up Start: 06-27-2022 Refill Ajit Torre MD Work Phone: Rheumatology Comment on above: Refill Request Start: 06-21-2022 ambulatory Nancy Del Valle APRN.MILLED RICE BROKER Work Phone: Functional Medicine Comment on above: Medication Start: 06-20-2022 End: 06-20-2022 ambulatory Beatriz Melissa PT [facility] Comment on above: Myofascial muscle pa in (Primary Dx); Chronic neck pain Start: 06-19-2022 Orders Only Jacobo Cheng MD Work Phone: Pain Management Comment on above: Paresthesia of right arm (Primary Dx); Radiculopathy, cervical region; Numbness and tingling in right hand Start: 06-18-2022 End: 06-18-2022 ambulatory Beatriz Tamez [facility] Physical Therapy Comment on above: Myofascial muscle pa in (Primary Dx); Chronic neck pain Start: 06-13-2022 End: 06-13-2022 Patient encounter procedure Sue Concepcion MD Work Phone: Neurology Comment on above: Chronic migraine wit hout aura, intractable, without status migrainosus (Primary Dx) Start: 06-13-2022 ambulatory Georgia Moore RN [facility] P Coordinated Care Comment on above: HYPERLIPIDEMIA Start: 06-10-2022 Specialty Pharmacy Otto Matamoros [facility] Comment on above: SPP Inflammatory Con ditions - Medication Refill (Enbrel SureClick) Start: 06-07-2022 Telephone encounter Sue Concepcion MD Work Phone: Neurology Comment on above: Virtual Visit Intake Start: 06-07-2022 End: 06-07-2022 ambulatory Sue Concepcion MD Work Phone: Neurology Comment on above: Chronic migraine wit hout aura, with intractable migraine, so stated, with status migrainosus (Primary Dx); Chronic migraine without aura, intractable, without status migrainosus Start: 06-07-2022 End: 06-07-2022 Telemedicine consultation with patient Sue Concepcion MD Work Phone: [facility] [place] [facility] Start: 06-06-2022 End: 06-06-2022 ambulatory Wisam Chung PA-C Work Phone: Rheumatology Comment on above: Inflammatory arthrit is (Primary Dx); Encounter for long-term (current) use of medications Start: 06-06-2022 End: 06-06-2022 Telemedicine consultation with patient Wisam Chung PA-C Work Phone: [facility] Start: 05-31-2022 ambulatory Nancy Del Valle APRN.CNP Work Phone: Functional Medicine Comment on above: Rifaximin Start: 05-29-2022 Telephone encounter Nancy Callejas per BEAUTY CULTURIST.MILLED RICE BROKER Work Phone: Functional Medicine Comment on above: Medication Problem ( PRIOR AUTH) Start: 05-27-2022 End: 05-27-2022 ambulatory Nancy Del Valle BEAUTY CULTURIST.MILLED RICE BROKER Work Phone: Functional Medicine Comment on above: Small intestinal shiraz terial overgrowth (SIBO) (Primary Dx) Start: 05-27-2022 End: 05-27-2022 Telemedicine consultation with patient Nancy Del Valle BEAUTY CULTURIST.MILLED RICE BROKER Work Phone: [facility] Start: 05-20-2022 ambulatory Mar Roberto louise BEAUTY CULTURIST.MILLED RICE BROKER Work Phone: [facility] Comment on above: Outbreak Start: 05-18-2022 End: 05-18-2022 Emergency department patient visit [facility] Start: 05-17-2022 Specialty Pharmacy Otto Matamoros [facility] Comment on above: SPP Inflammatory Con ditions - Medication Refill (Enbrel SureClick) Start: 05-08-2022 Telephone encounter Tracy goss RN Work Phone: [facility] Comment on above: Insurance Authorizat ion (AJOVY (fremanezumab-vfrm) injection 225MG/1.5ML auto-injectors) Start: 05-07-2022 End: 05-07-2022 Nursing evaluation of patient and report Nurse Stonecutter Assistant [facility] Work Phone: OB/Gynecology Comment on above: BMI 30.0-30.9,adult (Primary Dx) Start: 05-02-2022 ambulatory [facility] Provider Ctr for [facility] Comment on above: Breathe Test Start: 05-02-2022 E-mail encounter pilar m caregiver [facility] Start: 04-26-2022 Refill David Mcguire son DO Work Phone: [facility] Comment on above: Refill Request Start: 04-18-2022 End: 04-18-2022 Patient encounter procedure Elizabeth Kauffman DDS Work Phone: Dentistry Comment on above: Full yazidi of crown of tooth needed due to previous endodontic treatment (Primary Dx) Start: 04-11-2022 End: 04-11-2022 Social Work Eve Hays [facility] Work Phone: Integrative Medicine Comment on above: Adjustment disorder with anxious mood (Primary Dx) Start: 04-09-2022 End: 04-09-2022 ambulatory Adele Gibson APRN.MILLED RICE BROKER Work Phone: Pain Management Comment on above: Paresthesia of right arm (Primary Dx); Radiculopathy, cervical region; Numbness and tingling in right hand Start: 04-09-2022 End: 04-09-2022 Telemedicine consultation with patient Adele Gibson APRN.MILLED RICE BROKER Work Phone: [facility] Start: 04-04-2022 Refill Ajit Torre MD Work Phone: Rheumatology Comment on above: Refill Request Start: 04-03-2022 ambulatory Otto Matamoros [facility] Start: 04-03-2022 Patient encounter procedure Otto Matamoros [facility] Comment on above: SPP Inflammatory Con ditions - Treatment Referral (Amy Prakash); Insurance Authorization (PA submitted) Start: 03-31-2022 ambulatory Ajit Torre MD Work Phone: Rheumatology Comment on above: Treatment Start: 03-26-2022 Telephone encounter Leo hernandez MD Work Phone: Neurology Comment on above: Appointment Start: 03-07-2022 End: 03-07-2022 Subsequent hospital visit by physician Jacobo Cheng MD Work Phone: [facility] Comment on above: Radiculopathy, cervi storm region [M54.12] Start: 03-06-2022 Get Medical Advice Ajit Torre MD Work Phone: Rheumatology Comment on above: Refill SPP Inflammatory Con ditions - Follow-up (Humira Renewal); Insurance Authorization (PA Approved) Start: 03-04-2022 ambulatory Otto Matamor[facility] Start: 03-04-2022 [facility] Comment on above: SPP Inflammatory Con ditions - Follow-up (Nic Whiteside renewal ); Insurance Authorization (MIESHA submitted ) Start: 02-22-2022 End: 02-22-2022 ambulatory Beatriz Melissa PT Work Phone: [facility] Comment on above: Myofascial muscle pa in (Primary Dx); Chronic neck pain Start: 02-20-2022 Telephone encounter Kyra foote APRN.MILLED RICE BROKER Work Phone: Neurology Comment on above: Patient Update Start: 02-20-2022 End: 02-20-2022 ambulatory Ajit Torre MD Work Phone: Rheumatology Comment on above: Inflammatory arthrit is (Primary Dx); Long-term use of immunosuppressant medication; Pain in joint, multiple sites Start: 02-20-2022 End: 02-20-2022 Telemedicine consultation with patient Ajit Torre MD Work Phone: [facility] Start: 02-19-2022 End: 02-20-2022 Emergency department patient visit [facility] Procedures Date Procedure Procedure Detail Performing Clinician Start: 05-02-2025 Mri pelvis w/o contrast material Ajit Torre MD Work Phone: Start: 03-16-2025 Esophagogastroduodenoscopy transoral diagnostic Janiya Ziegler APRN.MILLED RICE BROKER Work Phone: Start: 02-11-2025 Nerve conduction studies 5-6 studies David Kilgore DO Work Phone: Start: 01-06-2025 Mri brain brain stem w/o w/contrast material David Kilgore DO Work Phone: Start: 01-06-2025 Screening digital breast tomosynthesis bi David Kilgore DO Work Phone: Start: 12-08-2024 Ecg routine ecg w/least 12 lds i&r only David Kilgore DO Work Phone: Start: 08-17-2024 Mri spinal canal cervical w/o contrast matrl Adele Gibsno BEAUTY CULTURIST.MILLED RICE BROKER Work Phone: Start: 03-01-2024 Us pelvic nonobstetric real-time image complete Elaine Velasco BEAUTY CULTURIST.MILLED RICE BROKER Work Phone: Start: 05-15-2023 Radex hip unilateral with pelvis 2-3 views Lloyd Lopes Augustus AT Work Phone: Start: 10-03-2022 Mri any jt lower extrem w/o contrast matrl Dian Sierra PA-C Work Phone: Start: 08-02-2022 Radex hip unilateral with pelvis 2-3 views Dian Sierra PA-C Work Phone: Start: 07-18-2022 Adult depression screening assessment Sue Concepcion MD Work Phone: Start: 05-27-2022 Adult depression screening assessment Nancy Del Valle BEAUTY CULTURIST.MILLED RICE BROKER Work Phone: Start: 03-07-2022 Fluoroscopy up to 1 hour physician/qhp time Jacobo Cheng MD Work Phone: Start: 02-13-2022 Adult depression screening assessment Ajit Torre MD Work Phone: Start: 01-13-2020 H/O: surgery Hx of neck surgery Ajit Torre MD Work Phone: Plan of Treatment Date Care Activity Detail Author Start: 2026 PAP TESTING PAP TESTING [facility] Start: 09-06-2026 End: 09-06-2026 Follow-up encounter 09/06/2026 2:40 PM EDT [facility] [address] [place] [address] Ajit Torre MD [address] [place] [address] Follow up Rheumatology Comment on above: Follow up Start: 05-24-2026 End: 05-24-2026 Follow-up encounter 05/24/2026 2:40 PM EDT [facility] [address] [id number] Ajit Torre MD [address] [place] [address] Follow up Rheumatology Comment on above: Follow up Start: 01-16-2026 End: 01-16-2026 Patient encounter procedure 01/16/2026 1:20 PM EST Office Visit Rheumatology [address] [place] [address] Ajit Torre MD [address] [id number] Follow up Rheumatology Comment on above: Follow up Start: 01-06-2026 Screening for malignant neoplasm of breast Mammogram Screening [facility] Start: 11-03-2025 End: 11-03-2025 Patient encounter procedure 11/03/2025 10:00 AM EST Office Visit Neurology [address] [place] [address] Sunil Owen, [place] [address] Return in about 3 months (around 10/21/2025) for Botox. Neurology Comment on above: Return in about 3 months (around 025) for Botox. Start: 09-28-2025 End: 09-28-2025 Follow-up encounter Rheumatology Comment on above: Follow up arthritis Start: 09-04-2025 HPV TESTING HPV TESTING [facility] Start: 09-04-2025 PAP TESTING PAP TESTING [facility] Start: 09-04-2025 Screening for malignant neoplasm of cervix [facility] Start: 08-22-2025 End: 08-22-2025 Specialty Pharmacy 08/22/2025 8:15 AM EDT Specialty Pharmacy [facility] [address] [place] [address] Drive [address] [place] [address] Pharmacist, [facility] [address] [place] [address] REFILL - Cosentyx. PAx10/05/25. ND 09/01 [facility] Comment on above: REFILL - Cosentyx. PAx10/6/25. ND 09/01 Start: 08-02-2025 End: 05-18-2026 Alanine aminotransferase [Enzymatic activity/volume] in Serum or Plasma ALANINE AMINOTRANSFERASE / SGPT Lab Routine Long-term use of immunosuppressant medication Expected: 08/02/2025, Expires: 05/18/2026 [facility] Comment on above: Expected: 08/02/2025, Expires: Start: 08-02-2025 End: 05-18-2026 Aspartate aminotransferase [Enzymatic activity/volume] in Serum or Plasma ASPARTATE AMINOTRANSFERASE/SGOT Lab Routine Long-term use of immunosuppressant medication Expected: 08/02/2025, Expires: 05/18/2026 [facility] Comment on above: Expected: 08/02/2025, Expires: Start: 08-02-2025 End: 05-18-2026 CBC panel - Blood by Automated count COMPLETE BLOOD COUNT Lab Routine Long-term use of immunosuppressant medication Expected: 08/02/2025, Expires: 05/18/2026 [facility] Work Phone: Comment on above: Expected: 08/02/2025, Expires: Start: 08-02-2025 End: 05-18-2026 Creatinine and Glomerular filtration rate.predicted panel - Serum, Plasma or Blood CREATININE BLD Lab Routine Long-term use of immunosuppressant medication Expected: 08/02/2025, Expires: 05/18/2026 [facility] Comment on above: Expected: 08/02/2025, Expires: Start: 08-01-2025 Influenza vaccination [facility] Start: 07-26-2025 End: 07-26-2025 Specialty Pharmacy 07/26/2025 8:15 AM EDT Specialty Pharmacy [facility] [address] [place] [address] Drive [address] [place] [address] Pharmacist, [facility] [address] [place] [phone] REFILL - Cosentyx. PA exp 09/05/2025. ND 08/04? (week 4 dose) [facility] Comment on above: REFILL - Cosentyx. PA exp 09/05/2025. ND 08/04? (week 4 dose) Start: 07-21-2025 End: 07-21-2025 Patient encounter procedure 07/21/2025 10:30 AM EDT Office Visit Neurology [address] [address] Sunil Owen, DO [address] [place], [place] [phone] botox Neurology Comment on above: botox Start: 07-05-2025 End: 07-05-2025 ambulatory 07/05/2025 8:00 AM EDT [facility] [address] [address] Adele Gibson, BEAUTY CULTURIST.MILLED RICE BROKER [address] [place] [address] Injection F/U; Schedule Injection Pain Management Comment on above: Injection F/U; Schedule Injection Start: 07-04-2025 End: 07-04-2025 ambulatory 07/04/2025 9:00 AM EDT [facility] [address] [place] [address] Adele Gibson, BEAUTY CULTURIST.MILLED RICE BROKER [address] [place] [address] Injection F/U; Schedule Injection Pain Management Comment on above: Injection F/U; Schedule Injection Start: 06-07-2025 End: 06-07-2025 Specialty Pharmacy 06/07/2025 8:30 AM EDT Specialty Pharmacy [facility] [address] [place] [address] [address] [place] [address] Pharmacist, [facility] [address] [place] [address] [place] [address] REFILL - Orencia - PAx/ - ND 06/12 (weekly Sundays) -Orencia D/C'd, med change to Cosentyx (PA sub 05/25) [facility] Comment on above: REFILL - Orencia - PAx06/29/25 - ND 05/31 3 (weekly Sundays) -Orencia D/C'd, med change to Cosentyx (PA sub 05/25) Start: 06-02-2025 End: 06-02-2025 Specialty Pharmacy 06/02/2025 8:00 AM EDT Specialty Pharmacy [facility] [address] [place] [phone] Pharmacist, [facility] [address] [place] [address] [place] [address] REFILL - Orencia - PAx06/29/25 - 06/12 (weekly ays) [facility] Comment on above: REFILL - Orencia - PAx06/29/25 - 05/31 3 (weekly ays) Start: 05-18-2025 End: 05-18-2025 Follow-up encounter Rheumatology Comment on above: follow up Start: 05-18-2025 End: 05-18-2025 Patient encounter procedure 05/18/2025 10:00 AM EDT Office Visit Rheumatology [address] [place] [address] [place] [address] [phone] follo up Rheumatology Comment on above: follo up Start: 05-06-2025 End: 05-06-2025 Specialty Pharmacy 05/06/2025 8:15 AM EDT Specialty Pharmacy [facility] [address] [place] [id number] Pharmacist, [facility] [address] [place] [address] [place] [address] REFILL - Orencia - PAx06/29/25 - ND 05/08 (weekly Sundays) - txt 04/29, 05/03 [facility] Comment on above: REFILL - Orencia - PAx06/29/25 - ND 06 8 (weekly Sundays) - txt 04/29, 05/03 Start: 05-03-2025 End: 05-03-2025 Specialty Pharmacy 05/03/2025 7:45 AM EDT Specialty Pharmacy [facility] [address] [place] [address] [place] [address] Pharmacist, [facility] [address] [place] [address] [place] [address] REFILL - Orencia - PAx06/29/25 - ND 05/08 (weekly Sundays) - txt 04/29 [facility] Comment on above: REFILL - Orencia - PAx07 - 06/0 8 (weekly ays) - txt 04/29 Start: 05-02-2025 End: 05-02-2025 Patient encounter procedure 05/02/2025 7:00 AM EDT Appointment Radiology [address] [place], [place] [phone] Disorder of bone [M89.9] Radiology Comment on above: Disorder of bone [M89.9] Start: 04-26-2025 End: 04-26-2025 Specialty Pharmacy 04/26/2025 8:15 AM EDT Specialty Pharmacy [facility] [address] [place] [address] [place] [address] Pharmacist, [facility] [address] [place] [address] REFILL - Orencia - PAx06/29/25 - 05/08 (weekly Sundays) - [facility] Comment on above: REFILL - Orencia - PAx07 - 06/0 8 (weekly Sundays) - Start: 04-06-2025 End: 04-06-2025 Patient encounter procedure 04/06/2025 10:30 AM EDT Office Visit Neurology [address] 799[address] Sunil Owen, DO [address] [place] [address] botox Neurology Comment on above: botox Start: 04-06-2025 End: 04-06-2025 Specialty Pharmacy 04/06/2025 8:15 AM EDT Specialty Pharmacy [facility] [facility] [address] [place] [address] Pharmacist, [facility] [address] [place] [address] REFILL - Orencia - PAx06/29/25 - ND 04/10 (weekly Sundays) - 04/01 [facility] Comment on above: REFILL - Orencia - PAx07 - ND 03/31 1 (weekly Sundays) - lvm 04/01 Start: 04-01-2025 End: 03-15-2026 Alanine aminotransferase [Enzymatic activity/volume] in Serum or Plasma ALANINE AMINOTRANSFERASE / SGPT Lab Routine Long-term use of immunosuppressant medication Expected: 04/01/2025, Expires: 03/15/2026 [facility] Comment on above: Expected: 04/01/2025, Expires: Start: 04-01-2025 End: 03-15-2026 Aspartate aminotransferase [Enzymatic activity/volume] in Serum or Plasma ASPARTATE AMINOTRANSFERASE/SGOT Lab Routine Long-term use of immunosuppressant medication Expected: 04/01/2025, Expires: 03/15/2026 [facility] Comment on above: Expected: 04/01/2025, Expires: Start: 04-01-2025 End: 03-15-2026 CBC panel - Blood by Automated count COMPLETE BLOOD COUNT Lab Routine Long-term use of immunosuppressant medication Expected: 04/01/2025, Expires: 03/15/2026 [facility] Comment on above: Expected: 04/01/2025, Expires: Start: 04-01-2025 End: 03-15-2026 Creatinine and Glomerular filtration rate.predicted panel - Serum, Plasma or Blood CREATININE BLD Lab Routine Long-term use of immunosuppressant medication Expected: 04/01/2025, Expires: 03/15/2026 [facility] Comment on above: Expected: 04/01/2025, Expires: Start: 03-23-2025 End: 03-23-2025 Specialty Pharmacy 03/23/2025 8:00 AM EDT Specialty Pharmacy [facility] [address] [facility] [address] [place] [address] Pharmacist, [facility] [address] [place] [address] REFILL - Orencia - PAx 03/23/25 - 04/10 (weekly Sundays) - PA RENEWAL [facility] Comment on above: REFILL - Orencia - PAx 03/23/25 - (weekly Sundays) - PA RENEWAL Start: 03-16-2025 End: 03-16-2025 Patient encounter procedure 03/16/2025 7:30 AM EDT Appointment Ambulatory Surgery [address] [place] [address] Portillo Mccallum MD [address] [place] [address] Ambulatory Surgery Start: 03-15-2025 End: 03-15-2025 Follow-up encounter 03/15/2025 2:20 PM EDT [facility] [address] [place], [place] [phone] Ajit Torre MD [address] [place], [place] [phone] FOLLOW UP Rheumatology Comment on above: FOLLOW UP Start: 03-09-2025 End: 03-09-2025 ambulatory 03/09/2025 7:30 AM EDT OT/PT/Speech Visit [facility] [address] [place] [address] Beatriz Melissa PT Spinal stenosis of cervical region [M48.02] [facility] Comment on above: Spinal stenosis of cervical region [M48. 02] Start: 03-03-2025 End: 03-03-2025 Patient encounter procedure Ophthalmology Comment on above: routine exam REFILL - Orencia - P Ax 03/23/25 - ND 03/13 (sundays) Start: 03-01-2025 End: 03-01-2025 ambulatory 03/01/2025 12:30 PM EDT OT/PT/Speech Visit [facility] [address] [place] [address] Beatriz Melissa, PT Spinal stenosis of cervical region [M48.02] [facility] Comment on above: Spinal stenosis of cervical region [M48. 02] Start: 02-22-2025 End: 02-22-2025 ambulatory 02/22/2025 11:30 AM EDT OT/PT/Speech Visit [facility] [address] [place] [address] Beatriz Melissa, PT Spinal stenosis of cervical region [M48.02] [facility] Comment on above: Spinal stenosis of cervical region [M48. 02] Start: 02-15-2025 End: 02-15-2025 ambulatory 02/15/2025 12:30 PM EDT OT/PT/Speech Visit [facility] [address] [place] [address] Beatriz Melissa, PT Spinal stenosis of cervical region [M48.02] [facility] Comment on above: Spinal stenosis of cervical region [M48. 02] Start: 02-15-2025 End: 02-15-2025 Patient encounter procedure 02/15/2025 8:15 AM EDT Office Visit [facility] Ophthalmology [address] [place] [address] Trung Salazar, OD [address] [place] [address] routine exam Ophthalmology Comment on above: routine exam Start: 02-11-2025 End: 02-11-2025 ambulatory Neurology Comment on above: Numbness and tingling of both legs [R20. 0, R20.2] E LE REFILL - Orencia - P Ax 03/23/25 - ND 02/18 (weekly fridays) - lvm 02/08 r E LE Start: 02-08-2025 End: 02-08-2025 ambulatory 02/08/2025 12:30 PM EDT OT/PT/Speech Visit [facility] [address] [place] [address] Beatriz Melissa PT Spinal stenosis of cervical region [M48.02] [facility] Comment on above: Spinal stenosis of cervical region [M48. 02] Start: 02-08-2025 End: 02-08-2025 Specialty Pharmacy 02/08/2025 8:15 AM EDT Specialty Pharmacy [facility] [address] [facility] [address] [place] [address] Pharmacist, [facility] [address] [place] [address] REFILL - Orencia - PAx 03/23/25 ~02/18 [facility] Comment on above: REFILL - Orencia - PAx 03/23/25 ~ Start: 02-04-2025 End: 02-04-2025 Patient encounter procedure 02/04/2025 11:30 AM EST Office Visit General Surgery [address] [place] [address] Janiya Ziegler APRN.MILLED RICE BROKER [address] [place] [address] Gastroesophageal reflux disease, unspecified whether esophagitis present- General Surgery Comment on above: Gastroesophageal reflux disease, unspeci fied whether esophagitis present- Start: 02-01-2025 End: 02-01-2025 ambulatory 02/01/2025 12:30 PM EST OT/PT/Speech Visit [facility] [address] [place] [address] Beatriz Melissa, PT Spinal stenosis of cervical region [M48.02] [facility] Comment on above: Spinal stenosis of cervical region [M48. 02] Start: 01-25-2025 End: 01-25-2025 ambulatory 01/25/2025 12:30 PM EST OT/PT/Speech Visit [facility] [address] [place] [address] Beatriz Melissa, PT Spinal stenosis of cervical region [M48.02] [facility] Comment on above: Spinal stenosis of cervical region [M48. 02] Start: 01-20-2025 End: 01-20-2025 Specialty Pharmacy 01/20/2025 8:15 AM EST Specialty Pharmacy [facility] [address] [id number] [place] [address] Pharmacist, [facility] [address] [place] [address] [place] [address] REFILL - Orencia - PAx 03/23/25 - ND ~01/21? - lvm 01/17 [facility] Comment on above: REFILL - Orencia - PAx 03/23/25 - ND ~? - lvm 01/17 Start: 01-19-2025 End: 01-19-2025 Patient encounter procedure General Surgery Comment on above: Gastroesophageal reflux disease, unspeci fied whether esophagitis present [K21.9]- Gastroesophageal ref lux disease, unspecified whether esophagitis present- Start: 01-18-2025 End: 01-18-2025 ambulatory 01/18/2025 12:30 PM EST OT/PT/Speech Visit [facility] [address] [place] [address] Beatriz Melissa, PT Spinal stenosis of cervical region [M48.02] [facility] Comment on above: Spinal stenosis of cervical region [M48. 02] Start: 01-17-2025 End: 01-17-2025 Specialty Pharmacy 01/17/2025 8:15 AM EST Specialty Pharmacy [facility] [address] [place] [address] Pharmacist, [facility] [address] [place] [address] [place] [address] REFILL - Orencia - PAx 03/23/25 - ND ~01/21? (rts 01/15) [facility] Comment on above: REFILL - Orencia - PAx 03/23/25 - ND ~? (rts 01/15) Start: 01-13-2025 End: 01-13-2025 ambulatory 01/13/2025 5:15 PM EST OT/PT/Speech Visit [facility] Physical Therapy [address] [place] [address] Beatriz Melissa PT Spinal stenosis of cervical region [M48.02] [facility] Comment on above: Spinal stenosis of cervical region [M48. 02] Start: 01-12-2025 End: 01-12-2025 Follow-up encounter Rheumatology Comment on above: Follow up arthritis Start: 01-10-2025 End: 01-10-2025 Specialty Pharmacy 01/10/2025 8:15 AM EST Specialty Pharmacy [facility] [facility] [place] [address] Pharmacist, [facility] [address] [place] [address] refill Orencia - PAx 03/23/25 - ND ~01/21? [facility] Comment on above: refill Orencia - PAx 03/23/25 - ND ~01/02? Start: 01-06-2025 End: 01-06-2025 Patient encounter procedure Mammogram Comment on above: Encounter for screening mammogram for br east cancer [Z12.31] Thunderclap headache [G44.53] Chest pain, unspecif ied type [R07.9] Start: 12-30-2024 End: 12-30-2024 ambulatory Neurology Comment on above: Migraines Start: 12-08-2024 End: 03-09-2025 25-hydroxyvitamin D3 [Mass/volume] in Serum or Plasma VITAMIN D 25 HYDROXY Lab Routine Vitamin D deficiency Expected: 12/08/2024, Expires: 03/09/2025 [facility] Comment on above: Expected: 12/08/2024, Expires: Start: 12-08-2024 End: 03-09-2025 APOLIPOPROTEIN A+B APOLIPOPROTEIN A+B Lab Routine Hyperlipidemia, mixed Expected: 12/08/2024, Expires: 03/09/2025 [facility] Comment on above: Expected: 12/08/2024, Expires: Start: 12-08-2024 End: 03-09-2025 Bacteria identified in Urine by Culture [facility] Comment on above: Expected: 12/08/2024, Expires: Start: 12-08-2024 End: 03-09-2025 Borrelia burgdorferi IgG and IgM panel - Serum LYME AB LATE >30 DAYS SYMPTOMS Lab Routine Numbness and tingling of both legs Expected: 12/08/2024, Expires: 03/09/2025 [facility] Work Phone: Comment on above: Expected: 12/08/2024, Expires: Start: 12-08-2024 End: 03-09-2025 C reactive protein [Mass/volume] in Serum or Plasma C-REACTIVE PROTEIN Lab Routine Word finding difficulty Worsening headaches Thunderclap headache Expected: 12/08/2024, Expires: 03/09/2025 [facility] Comment on above: Expected: 12/08/2024, Expires: Start: 12-08-2024 End: 03-09-2025 CBC W Auto Differential panel - Blood COMPLETE BLOOD COUNT AND DIFFERENTIAL Lab Routine Word finding difficulty Worsening headaches Thunderclap headache Expected: 12/08/2024, Expires: 03/09/2025 [facility] Comment on above: Expected: 12/08/2024, Expires: Start: 12-08-2024 End: 03-09-2025 Cobalamin (Vitamin B12) [Mass/volume] in Serum or Plasma VITAMIN B12 Lab Routine Hypersomnolence Fatigue, unspecified type Expected: 12/08/2024, Expires: 03/09/2025 [facility] Comment on above: Expected: 12/08/2024, Expires: Start: 12-08-2024 End: 03-09-2025 Comprehensive metabolic 2000 panel - Serum or Plasma COMPREHENSIVE METABOLIC PANEL Lab Routine Word finding difficulty Worsening headaches Thunderclap headache Expected: 12/08/2024, Expires: 03/09/2025 [facility] Comment on above: Expected: 12/08/2024, Expires: Start: 12-08-2024 End: 03-09-2025 Erythrocyte sedimentation rate SEDIMENTATION RATE, WESTERGREN Lab Routine Word finding difficulty Worsening headaches Thunderclap headache Expected: 12/08/2024, Expires: 03/09/2025 [facility] Comment on above: Expected: 12/08/2024, Expires: Start: 12-08-2024 End: 03-09-2025 Helicobacter pylori IgG Ab [Presence] in Serum or Plasma by Immunoassay H PYLORI IGG AB Lab Routine Chest pain, unspecified type Expected: 12/08/2024, Expires: 03/09/2025 [facility] Comment on above: Expected: 12/08/2024, Expires: Start: 12-08-2024 End: 03-09-2025 HIV 1+2 Ab [Presence] in Serum or Plasma by Immunoassay HIV 1/2 COMBO WITH REFLEX TO DIFFERENTIATION Lab Routine Numbness and tingling of both legs Expected: 12/08/2024, Expires: 03/09/2025 [facility] Comment on above: Expected: 12/08/2024, Expires: Start: 12-08-2024 End: 03-09-2025 Lipid 1996 panel - Serum or Plasma LIPID PANEL BASIC Lab Routine Hyperlipidemia, mixed Expected: 12/08/2024, Expires: 03/09/2025 [facility] Comment on above: Expected: 12/08/2024, Expires: Start: 12-08-2024 End: 03-09-2025 OMEGACHECK OMEGACHECK Lab Routine Hyperlipidemia, mixed Expected: 12/08/2024, Expires: 03/09/2025 [facility] Comment on above: Expected: 12/08/2024, Expires: Start: 12-08-2024 End: 03-09-2025 SYPHILIS TREPONEMAL W/REFLEX SYPHILIS TREPONEMAL W/REFLEX Lab Routine Numbness and tingling of both legs Expected: 12/08/2024, Expires: 03/09/2025 [facility] Comment on above: Expected: 12/08/2024, Expires: Start: 12-08-2024 End: 03-09-2025 Thyrotropin [Units/volume] in Serum or Plasma THYROID STIMULATING HORMONE Lab Routine Word finding difficulty Worsening headaches Thunderclap headache Expected: 12/08/2024, Expires: 03/09/2025 [facility] Comment on above: Expected: 12/08/2024, Expires: Start: 12-08-2024 End: 03-09-2025 Thyroxine (T4) free [Mass/volume] in Serum or Plasma T4 FREE/FREE THYROXINE Lab Routine Word finding difficulty Worsening headaches Thunderclap headache Expected: 12/08/2024, Expires: 03/09/2025 [facility] Comment on above: Expected: 12/08/2024, Expires: Start: 12-08-2024 End: 03-09-2025 Triiodothyronine (T3) Free [Mass/volume] in Serum or Plasma T3, FREE Lab Routine Word finding difficulty Worsening headaches Thunderclap headache Expected: 12/08/2024, Expires: 03/09/2025 [facility] Comment on above: Expected: 12/08/2024, Expires: Start: 12-08-2024 End: 03-09-2025 Urinalysis complete panel - Urine URINALYSIS (WITH MICROSCOPIC) WITH CULTURE IF INDICATED Lab Routine Recurrent UTI (urinary tract infection) Expected: 12/08/2024, Expires: 03/09/2025 [facility] Comment on above: Expected: 12/08/2024, Expires: Start: 12-08-2024 End: 12-08-2024 Patient encounter procedure 12/08/2024 12:00 PM EST Office Visit [facility] [address] [place] [address] David Kilgore, [address] [place] [address] Physical [facility] Comment on above: Physical Start: 11-04-2024 End: 11-04-2024 Admission to same day surgery center [facility] Comment on above: CERVICAL EPIDURAL BLOCK W/INJECTION(S) N ON NEUROLYTIC SUBSTANCE(S) W/IMAGE GUIDANCE Start: 11-04-2024 End: 11-04-2024 Njx dx/ther sbst intrlmnr crv/thrc w/img gdn ME OR Start: 11-04-2024 Subsequent hospital visit by physician [facility] Comment on above: 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], Foraminal stenosis of cervical region [M48.02], Radiculopathy, cervical region [M54.12] Start: 11-04-2024 End: 11-04-2024 Admission to same day surgery center 11/04/2024 12:29 PM EST - 11/04/2024 12:56 PM EST Surgery [facility] [address] [place] [address] Jacobo Cheng MD [address] [facility] [address] CERVICAL EPIDURAL BLOCK W/INJECTION(S) NON NEUROLYTIC SUBSTANCE(S) W/IMAGE GUIDANCE [facility] Comment on above: CERVICAL EPIDURAL BLOCK W/INJECTION(S) N ON NEUROLYTIC SUBSTANCE(S) W/IMAGE GUIDANCE Start: 11-04-2024 End: 11-04-2024 Njx dx/ther sbst intrlmnr crv/thrc w/img gdn CERVICAL EPIDURAL BLOCK W/INJECTION(S) NON NEUROLYTIC SUBSTANCE(S) W/IMAGE GUIDANCE Herniation of cervical intervertebral disc with radiculopathy Foraminal stenosis of cervical region Radiculopathy, cervical region 11/04/2024 12:29 PM EST ME OR Start: 11-04-2024 Subsequent hospital visit by physician 11/04/2024 12:29 PM EST Hospital Encounter [facility] [address] [place] [address] Jacobo Cheng MD [address] [address] Herniation of cervical intervertebral disc with radiculopathy [M50.10], Foraminal stenosis of cervical region [M48.02], Radiculopathy, cervical region [M54.12] [facility] Comment on above: 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], Foraminal stenosis of cervical region [M48.02], Radiculopathy, cervical region [M54.12] Start: 2024 Screening for malignant neoplasm of breast Mammogram Screening [facility] Start: 10-21-2024 End: 10-21-2024 Follow-up encounter 10/21/2024 9:45 AM EST [facility] [address] [place] [address] Melva Spencer, BEAUTY CULTURIST.[employer] [address] [place] [address] Follow up medication [facility] Comment on above: Follow up medication Start: 10-06-2024 End: 10-06-2024 Admission to same day surgery center 10/06/2024 8:00 AM EST [facility] [address] [address] Jacobo Cheng MD [address] [facility] [place] [address] Plan of Care: Spine Surgery C/S? (Declined Injection) Pain Management Comment on above: Plan of Care: Spine Surgery C/S? (Declin ed Injection) Start: 09-14-2024 End: 09-14-2024 Specialty Pharmacy 09/14/2024 8:15 AM EDT Specialty Pharmacy [facility] [address] [place] [address] Pharmacist, [facility] [address] [place] [id number] REFILL Simponi - PA exp 02/05/25 - 09/18 - Pending PA for med change to [facility] Comment on above: REFILL Simponi - PA exp 02/05/25 - - Pending PA for med change to [facility] Start: 09-09-2024 End: 09-09-2024 Specialty Pharmacy [facility] Comment on above: REFILL Simponi - PA exp 02/05/25 REFILL Simponi - PA exp 02/05/2509/18 - Pending PA for med change to [facility] Start: 09-01-2024 End: 09-01-2025 Alanine aminotransferase [Enzymatic activity/volume] in Serum or Plasma ALANINE AMINOTRANSFERASE / SGPT Lab Routine Long-term use of immunosuppressant medication Expected: 09/01/2024, Expires: 09/01/2025 [facility] Comment on above: Expected: 09/01/2024, Expires: Start: 09-01-2024 End: 09-01-2025 Aspartate aminotransferase [Enzymatic activity/volume] in Serum or Plasma ASPARTATE AMINOTRANSFERASE/SGOT Lab Routine Long-term use of immunosuppressant medication Expected: 09/01/2024, Expires: 09/01/2025 [facility] Comment on above: Expected: 09/01/2024, Expires: Start: 09-01-2024 End: 12-01-2024 BLOOD TB SCREEN BLOOD TB SCREEN Lab Routine Long-term use of immunosuppressant medication Expected: 09/01/2024, Expires: 12/01/2024 [facility] Work Phone: Comment on above: Expected: 09/01/2024, Expires: Start: 09-01-2024 End: 09-01-2025 CBC panel - Blood by Automated count COMPLETE BLOOD COUNT Lab Routine Long-term use of immunosuppressant medication Expected: 09/01/2024, Expires: 09/01/2025 [facility] Comment on above: Expected: 09/01/2024, Expires: Start: 09-01-2024 End: 09-01-2025 CREATININE BLD CREATININE BLD Lab Routine Long-term use of immunosuppressant medication Expected: 09/01/2024, Expires: 09/01/2025 [facility] Comment on above: Expected: 09/01/2024, Expires: Start: 09-01-2024 End: 09-01-2024 Follow-up encounter 09/01/2024 10:[address] [address] [place] [address] [place] [address] Follow up arthritis Rheumatology Comment on above: Follow up arthritis Start: 09-01-2024 End: 09-01-2024 Patient encounter procedure 09/01/2024 10:00 AM EDT Office Visit Rheumatology [address] [place] [address] [place] [address] [place] [address] Follow up arthritis Rheumatology Comment on above: Follow up arthritis Start: 08-17-2024 End: 08-17-2024 Patient encounter procedure 08/17/2024 8:00 AM EDT Appointment Radiology [address] [place] [address] Spinal stenosis of cervical region [M48.02] Radiology Comment on above: Spinal stenosis of cervical region [M48. 02] Start: 08-11-2024 End: 08-11-2024 Specialty Pharmacy 08/11/2024 8:15 AM EDT Specialty Pharmacy [facility] [id number] [place] [address] Pharmacist, [address] [address] REFILL Simponi - PA exp 07/19/24 - PA RENEWAL sub 08/04- [facility] Comment on above: REFILL Simponi - PA exp 07/19/24 - PA SELWYN EWAL sub 08/04 - 08/21- Start: 08-04-2024 End: 08-04-2024 Patient encounter procedure [facility] Comment on above: Annual REFILL Simponi - PA exp 07/19/24 - PA RENEWAL - ND 08/21- Start: 08-01-2024 Influenza vaccination [facility] Start: 07-16-2024 End: 07-16-2024 Specialty Pharmacy 07/16/2024 8:15 AM EDT Specialty Pharmacy [facility] [address] [place] [address] Pharmacist, [facility] [address] [place] [address] [place] [address] REFILL Simponi - PA exp 07/19/24 - will need PA RENEWAL before august refill - 07/24 - lv07/13 [facility] Comment on above: REFILL Simponi - PA exp 07/19/24 - will n eed PA RENEWAL before august refill - 07/24 - lvm 07/13 Start: 07-13-2024 End: 07-13-2024 Specialty Pharmacy 07/13/2024 8:00 AM EDT Specialty Pharmacy [facility] [address] [place] [phone] Pharmacist, [facility] [address] [place] [address] [place] [address] REFILL Simponi - PA exp 07/19/24 - 07/24 [facility] Comment on above: REFILL Simponi - PA exp 07/19/24 - ND 07/02 4 Start: 07-01-2024 End: 07-01-2024 Patient encounter procedure 07/01/2024 9:20 AM EDT Appointment Radiology [address] [place], [place] [id number] MRI Radiology Comment on above: MRI Start: 06-18-2024 End: 06-18-2024 Specialty Pharmacy 06/18/2024 8:00 AM EDT Specialty Pharmacy [facility] [address] [place] [phone] Pharmacist, [facility] [address] [place] [address] [place] [address] REFILL Simponi - PA exp 07/19/24 - ND 06/26? [facility] Comment on above: REFILL Simponi - PA exp 07/19/24 - ND 06/01 7? Start: 06-16-2024 End: 09-15-2024 Lipid 1996 panel - Serum or Plasma [facility] Work Phone: Comment on above: Expected: 06/16/2024, Expires: Start: 06-16-2024 End: 09-15-2024 Thyrotropin [Units/volume] in Serum or Plasma [facility] Comment on above: Expected: 06/16/2024, Expires: Start: 06-16-2024 End: 09-15-2024 Thyroxine (T4) free [Mass/volume] in Serum or Plasma [facility] Comment on above: Expected: 06/16/2024, Expires: Start: 06-01-2024 End: 06-01-2024 ambulatory 06/01/2024 12:30 PM EDT OT/PT/Speech Visit [facility] [address] [place] [address] Beatriz Melissa PT Dx: Neck pain [M54.2 (ICD-10-CM)] [facility] Comment on above: Dx: Neck pain [M54.2 (ICD-10-CM)] Start: 05-26-2024 End: 05-26-2024 Specialty Pharmacy 05/26/2024 8:00 AM EDT Specialty Pharmacy [facility] [address] [place] [address] Pharmacist, [facility] [address] [place] [address] REFILL Simponi - PA exp 07/19/24 - 04/17 - lvm multiple calls - D/C if no call back [facility] Comment on above: REFILL Simponi - PA exp 07/19/24 - - lvm multiple calls - D/C if no call back Start: 05-19-2024 End: 05-19-2024 Patient encounter procedure 05/19/2024 9:00 AM EDT Office Visit Pain Management [address] [facility] [address] [place] [id number] Jacobo Cheng MD [address] [facility] [address] [place], [place] [id number] follow up-no relief after injection Pain Management Comment on above: follow up-no relief after injection Start: 05-11-2024 End: 05-11-2024 Specialty Pharmacy 05/11/2024 8:00 AM EDT Specialty Pharmacy [facility] [address] [place] [phone] Pharmacist, [facility] [address] [place] [address] [place] [address] REFILL Simponi - PA exp 07/19/24 - 04/17 - lvm multiple calls [facility] Comment on above: REFILL Simponi - PA exp 07/19/24 - - lvm multiple calls Start: 05-10-2024 End: 05-10-2024 Follow-up encounter 05/10/2024 2:00 PM EDT [facility] [address] [place] [id number] [place] [address] [place] [address] FOLLOW UP MyChart zoom Rheumatology Comment on above: FOLLOW UP MyChart zoom Start: 04-27-2024 End: 04-27-2024 Specialty Pharmacy 04/27/2024 8:15 AM EDT Specialty Pharmacy [facility] [address] [place] [phone] Pharmacist, [facility] [address] [place] [address] [place] [address] REFILL Simponi - PA exp 07/19/24 - 04/17 - lvm multiple calls [facility] Comment on above: REFILL Simponi - PA exp 07/19/24 - - lvm multiple calls Start: 04-19-2024 End: 04-19-2024 Patient encounter procedure 04/19/2024 9:00 AM EDT Office Visit Rheumatology [address] [place] [address] [place] [address] [place] [address] Follow up arthritis Rheumatology Comment on above: Follow up arthritis Start: 04-14-2024 End: 04-14-2024 Specialty Pharmacy 04/14/2024 8:00 AM EDT Specialty Pharmacy [facility] [address] [place], [place] [id number] [place] [address] Pharmacist, [facility] [address] [place] [address] [place] [address] REFILL Simponi - PA exp 07/19/24 - 04/17 - lvm 04/12 [facility] Comment on above: REFILL Simponi - PA exp 07/19/24 - ND - lvm 04/12 Start: 04-12-2024 End: 04-12-2024 Patient encounter procedure 04/12/2024 3:30 PM EDT Office Visit Pain Management [address] [address] Jacobo Cheng MD [address] [facility] [place] [address] follow up-no relief after injection Pain Management Comment on above: follow up-no relief after injection Start: 04-08-2024 End: 04-08-2024 Patient encounter procedure 04/08/2024 10:30 AM EDT Office Visit Neurology [address] [address] Sunil Owen, DO [address] [place], [place] [id number] Botox//AUTH PENDING 03/15 Neurology Comment on above: Botox//AUTH PENDING 03/15 Start: 04-07-2024 End: 04-07-2024 Specialty Pharmacy 04/07/2024 8:00 AM EDT Specialty Pharmacy [facility] [address] [place] [id number] [place] [address] Pharmacist, [facility] [address] [place] [address] [place] [address] REFILL Simponi - PA exp 07/19/24 - 04/17 [facility] Comment on above: REFILL Simponi - PA exp 07/19/24 - Start: 01-11-2024 Dental X-Ray: FMX/Camp Dental X-Ray: FMX/Camp [facility] Start: 12-01-2023 Depression Assessment Depression Assessment [facility] Start: 08-01-2023 Influenza vaccination [facility] Start: 07-25-2023 End: 09-24-2023 Creatine kinase [Enzymatic activity/volume] in Serum or Plasma CK CREATINE KINASE Lab Routine Hyperlipidemia LDL goal <100 Statin intolerance Expected: 07/25/2023, Expires: 09/24/2023 [facility] Work Phone: Comment on above: Expected: 07/25/2023, Expires: Start: 07-18-2023 Adult depression screening assessment DEPRESSION SCREENING [facility] Start: 06-26-2023 End: 08-26-2023 25-hydroxyvitamin D3 [Mass/volume] in Serum or Plasma VITAMIN D 25 HYDROXY Lab Routine Vitamin D deficiency Expected: 06/26/2023, Expires: 08/26/2023 [facility] Work Phone: Comment on above: Expected: 06/26/2023, Expires: Start: 06-26-2023 End: 08-26-2023 Cobalamin (Vitamin B12) [Mass/volume] in Serum or Plasma VITAMIN B12 BLOOD Lab Routine Class 1 obesity with serious comorbidity and body mass index (BMI) of 32.0 to 32.9 in adult, unspecified obesity type Thinning hair Expected: 06/26/2023, Expires: 08/26/2023 [facility] Work Phone: Comment on above: Expected: 06/26/2023, Expires: 3 Start: 06-26-2023 End: 08-26-2023 Lipid 1996 panel - Serum or Plasma LIPID PANEL BASIC Lab Routine Hyperlipidemia, unspecified hyperlipidemia type Expected: 06/26/2023, Expires: 08/26/2023 [facility] Work Phone: Comment on above: Expected: 06/26/2023, Expires: Start: 06-26-2023 End: 08-26-2023 Thyrotropin [Units/volume] in Serum or Plasma TSH BLD Lab Routine Thinning hair Expected: 06/26/2023, Expires: 08/26/2023 [facility] Work Phone: Comment on above: Expected: 06/26/2023, Expires: 3 Start: 06-26-2023 End: 08-26-2023 Thyroxine (T4) free [Mass/volume] in Serum or Plasma T4 FREE/FREE THYROX Lab Routine Thinning hair Expected: 06/26/2023, Expires: 08/26/2023 [facility] Work Phone: Comment on above: Expected: 06/26/2023, Expires: Start: 06-26-2023 End: 08-26-2023 Triiodothyronine (T3) [Mass/volume] in Serum or Plasma T3 BLD Lab Routine Thinning hair Expected: 06/26/2023, Expires: 08/26/2023 [facility] Work Phone: Comment on above: Expected: 06/26/2023, Expires: 3 Start: 05-27-2023 Adult depression screening assessment DEPRESSION SCREENING [facility] Start: 05-22-2023 End: 07-22-2023 Comprehensive metabolic 2000 panel - Serum or Plasma COMP METABOLIC PANEL Lab Routine Impaired fasting glucose PCOS (polycystic ovarian syndrome) Dyslipidemia Expected: 05/22/2023, Expires: 07/22/2023 [facility] Work Phone: Comment on above: Expected: 05/22/2023, Expires: Start: 05-22-2023 End: 07-22-2023 Lipid 1996 panel - Serum or Plasma LIPID PANEL BASIC Lab Routine Impaired fasting glucose PCOS (polycystic ovarian syndrome) Dyslipidemia Expected: 05/22/2023, Expires: 07/22/2023 [facility] Work Phone: Comment on above: Expected: 05/22/2023, Expires: 3 Start: 04-02-2023 End: 04-16-2023 SARS-CoV-2 (COVID-19) RNA [Presence] in Respiratory specimen by TRENA with probe detection CAREGIVER COVID19 Microbiology Routine Encounter for screening for COVID-19 Expected: 04/02/2023, Expires: 04/16/2023 [facility] Work Phone: Comment on above: Expected: 04/02/2023, Expires: 3 Start: 03-25-2023 End: 03-25-2024 CBC panel - Blood by Automated count CBC Lab Routine Long-term use of immunosuppressant medication Expected: 03/25/2023, Expires: 03/25/2024 [facility] Work Phone: Comment on above: Expected: 03/25/2023, Expires: 4 Start: 03-25-2023 End: 03-25-2024 CREATININE BLD CREATININE BLD Lab Routine Long-term use of immunosuppressant medication Expected: 03/25/2023, Expires: 03/25/2024 [facility] Work Phone: Comment on above: Expected: 03/25/2023, Expires: 4 Start: 03-25-2023 End: 03-25-2024 Hepatic function 2000 panel - Serum or Plasma HEPATIC FUNCTION PNL Lab Routine Long-term use of immunosuppressant medication Expected: 03/25/2023, Expires: 03/25/2024 [facility] Work Phone: Comment on above: Expected: 03/25/2023, Expires: 4 Start: 02-13-2023 Adult depression screening assessment DEPRESSION SCREENING [facility] Start: 01-22-2023 End: 03-24-2023 CALCITONIN BLOOD CALCITONIN BLOOD Lab Routine Abnormal thyroid blood test Fatigue, unspecified type Hyponatremia Myalgia Myofascial muscle pain Expected: 01/22/2023, Expires: 03/24/2023 [facility] Work Phone: Comment on above: Expected: 01/22/2023, Expires: Start: 01-22-2023 End: 03-24-2023 CREATININE CLEARANCE, UR 24HR CREATININE CLEARANCE, UR 24HR Lab Routine Abnormal thyroid blood test Fatigue, unspecified type Hyponatremia Myalgia Myofascial muscle pain Expected: 01/22/2023, Expires: 03/24/2023 [facility] Work Phone: Comment on above: Expected: 01/22/2023, Expires: 3 Start: 01-22-2023 End: 03-24-2023 Thyrotropin [Units/volume] in Serum or Plasma TSH BLD Lab Routine Abnormal thyroid blood test Expected: 01/22/2023, Expires: 03/24/2023 [facility] Work Phone: Comment on above: Expected: 01/22/2023, Expires: Start: 01-22-2023 End: 03-24-2023 Thyroxine (T4) free [Mass/volume] in Serum or Plasma T4 FREE/FREE THYROX Lab Routine Abnormal thyroid blood test Expected: 01/22/2023, Expires: 03/24/2023 [facility] Work Phone: Comment on above: Expected: 01/22/2023, Expires: 3 Start: 01-22-2023 End: 03-24-2023 Triiodothyronine (T3) [Mass/volume] in Serum or Plasma T3 BLD Lab Routine Abnormal thyroid blood test Expected: 01/22/2023, Expires: 03/24/2023 [facility] Work Phone: Comment on above: Expected: 01/22/2023, Expires: Start: 12-23-2022 End: 02-22-2023 Comprehensive metabolic 2000 panel - Serum or Plasma COMP METABOLIC PANEL Lab Routine Dyslipidemia PCOS (polycystic ovarian syndrome) Impaired fasting blood sugar Obesity, Class I, BMI 30-34.9 Expected: 12/23/2022, Expires: 02/22/2023 [facility] Work Phone: Comment on above: Expected: 12/23/2022, Expires: 3 Start: 12-23-2022 End: 02-22-2023 Lipid 1996 panel - Serum or Plasma LIPID PANEL BASIC Lab Routine Dyslipidemia PCOS (polycystic ovarian syndrome) Impaired fasting blood sugar Obesity, Class I, BMI 30-34.9 Expected: 12/23/2022, Expires: 02/22/2023 [facility] Work Phone: Comment on above: Expected: 12/23/2022, Expires: 3 Start: 12-01-2022 DEPRESSION ASSESSMENT DEPRESSION ASSESSMENT [facility] Start: 11-19-2022 End: 01-19-2023 25-hydroxyvitamin D3 [Mass/volume] in Serum or Plasma VITAMIN D 25 HYDROXY Lab Routine Deficiency of multiple nutrient elements Expected: 11/19/2022, Expires: 01/19/2023 [facility] Work Phone: Comment on above: Expected: 11/19/2022, Expires: 3 Start: 11-19-2022 End: 01-19-2023 MAGNESIUM RBC MAGNESIUM RBC Lab Routine Deficiency of multiple nutrient elements Expected: 11/19/2022, Expires: 01/19/2023 [facility] Work Phone: Comment on above: Expected: 11/19/2022, Expires: 3 Start: 11-19-2022 End: 01-19-2023 OMEGACHECK OMEGACHECK Lab Routine Deficiency of multiple nutrient elements Expected: 11/19/2022, Expires: 01/19/2023 [facility] Work Phone: Comment on above: Expected: 11/19/2022, Expires: 3 Start: 11-14-2022 End: 01-14-2023 CBC W Auto Differential panel - Blood CBC + DIFF Lab Routine Inflammatory arthritis Expected: 11/14/2022, Expires: 01/14/2023 [facility] Work Phone: Comment on above: Expected: 11/14/2022, Expires: 3 Start: 11-14-2022 End: 01-14-2023 Comprehensive metabolic 2000 panel - Serum or Plasma COMP METABOLIC PANEL Lab Routine Inflammatory arthritis Expected: 11/14/2022, Expires: 01/14/2023 [facility] Work Phone: Comment on above: Expected: 11/14/2022, Expires: 3 Start: 11-05-2022 End: 01-05-2023 Comprehensive metabolic 2000 panel - Serum or Plasma COMP METABOLIC PANEL Lab Routine Family history of hyperlipidemia Hyperlipidemia LDL goal <100 Elevated Lp(a) Expected: 11/05/2022, Expires: 01/05/2023 [facility] Work Phone: Comment on above: Expected: 11/05/2022, Expires: 3 Start: 11-05-2022 End: 01-05-2023 Creatine kinase [Enzymatic activity/volume] in Serum or Plasma CK CREATINE KINASE Lab Routine Family history of hyperlipidemia Hyperlipidemia LDL goal <100 Elevated Lp(a) Expected: 11/05/2022, Expires: 01/05/2023 [facility] Work Phone: Comment on above: Expected: 11/05/2022, Expires: 3 Start: 11-05-2022 End: 01-05-2023 Lipid 1996 panel - Serum or Plasma LIPID PANEL BASIC Lab Routine Family history of hyperlipidemia Hyperlipidemia LDL goal <100 Elevated Lp(a) Expected: 11/05/2022, Expires: 01/05/2023 [facility] Work Phone: Comment on above: Expected: 11/05/2022, Expires: 3 Start: 10-05-2022 End: 12-05-2022 CALCITONIN BLOOD CALCITONIN BLOOD Lab Routine [place] Expected: 10/05/2022, Expires: 12/05/2022 [facility] Work Phone: Comment on above: Expected: 10/05/2022, Expires: 3 Start: 10-05-2022 End: 12-05-2022 Thyroxine (T4) free [Mass/volume] in Serum or Plasma T4 FREE/FREE THYROX Lab Routine Abnormal thyroid blood test Expected: 10/05/2022, Expires: 12/05/2022 [facility] Work Phone: Comment on above: Expected: 10/05/2022, Expires: 3 Start: 10-03-2022 End: 12-03-2022 Comprehensive metabolic 2000 panel - Serum or Plasma COMP METABOLIC PANEL Lab Routine Malaise and fatigue Unintended weight gain Hyperlipidemia, unspecified hyperlipidemia type PCOS (polycystic ovarian syndrome) Expected: 10/03/2022, Expires: 12/03/2022 [facility] Work Phone: Comment on above: Expected: 10/03/2022, Expires: 3 Start: 10-03-2022 End: 12-03-2022 Hemoglobin A1c in Blood HGB A1C Lab Routine Malaise and fatigue Unintended weight gain Hyperlipidemia, unspecified hyperlipidemia type PCOS (polycystic ovarian syndrome) Expected: 10/03/2022, Expires: 12/03/2022 [facility] Work Phone: Comment on above: Expected: 10/03/2022, Expires: 3 Start: 10-03-2022 End: 12-03-2022 Lipid 1996 panel - Serum or Plasma LIPID PANEL BASIC Lab Routine Malaise and fatigue Unintended weight gain Hyperlipidemia, unspecified hyperlipidemia type PCOS (polycystic ovarian syndrome) Expected: 10/03/2022, Expires: 12/03/2022 [facility] Work Phone: Comment on above: Expected: 10/03/2022, Expires: 3 Start: 10-03-2022 End: 12-03-2022 TESTOSTERONE, FREE AND TOTAL TESTOSTERONE, FREE AND TOTAL Lab Routine Malaise and fatigue Unintended weight gain Hyperlipidemia, unspecified hyperlipidemia type PCOS (polycystic ovarian syndrome) Expected: 10/03/2022, Expires: 12/03/2022 [facility] Work Phone: Comment on above: Expected: 10/03/2022, Expires: 3 Start: 10-03-2022 End: 12-03-2022 THYROID PEROXIDASE ANTIBODY BLOOD THYROID PEROXIDASE ANTIBODY BLOOD Lab Routine Malaise and fatigue Unintended weight gain Hyperlipidemia, unspecified hyperlipidemia type PCOS (polycystic ovarian syndrome) Expected: 10/03/2022, Expires: 12/03/2022 [facility] Work Phone: Comment on above: Expected: 10/03/2022, Expires: 3 Start: 09-13-2022 End: 11-13-2022 25-hydroxyvitamin D3 [Mass/volume] in Serum or Plasma VITAMIN D 25 HYDROXY Lab Routine Hot flashes Bloating PCOS (polycystic ovarian syndrome) Expected: 09/13/2022, Expires: 11/13/2022 [facility] Work Phone: Comment on above: Expected: 09/13/2022, Expires: 2 Start: 09-13-2022 End: 11-13-2022 DHEA-S BLD DHEA-S BLD Lab Routine Hot flashes Bloating PCOS (polycystic ovarian syndrome) Expected: 09/13/2022, Expires: 11/13/2022 [facility] Work Phone: Comment on above: Expected: 09/13/2022, Expires: 2 Start: 09-13-2022 End: 11-13-2022 Estradiol (E2) [Mass/volume] in Serum or Plasma ESTRADIOL-17B BLD Lab Routine Hot flashes Bloating PCOS (polycystic ovarian syndrome) Expected: 09/13/2022, Expires: 11/13/2022 [facility] Work Phone: Comment on above: Expected: 09/13/2022, Expires: 2 Start: 09-13-2022 End: 11-13-2022 Follitropin [Units/volume] in Serum or Plasma FSH BLD Lab Routine Hot flashes Bloating PCOS (polycystic ovarian syndrome) Expected: 09/13/2022, Expires: 11/13/2022 [facility] Work Phone: Comment on above: Expected: 09/13/2022, Expires: 2 Start: 09-13-2022 End: 11-13-2022 Homocysteine [Moles/volume] in Serum or Plasma HOMOCYSTEINE Lab Routine Hot flashes Bloating PCOS (polycystic ovarian syndrome) Expected: 09/13/2022, Expires: 11/13/2022 [facility] Work Phone: Comment on above: Expected: 09/13/2022, Expires: 2 Start: 09-13-2022 End: 11-13-2022 Insulin [Units/volume] in Serum or Plasma INSULIN ASSAY BLOOD Lab Routine Hot flashes Bloating PCOS (polycystic ovarian syndrome) Expected: 09/13/2022, Expires: 11/13/2022 [facility] Work Phone: Comment on above: Expected: 09/13/2022, Expires: 2 Start: 09-13-2022 End: 11-13-2022 Lutropin [Units/volume] in Serum or Plasma LUTEINIZING HORMONE Lab Routine Hot flashes Bloating PCOS (polycystic ovarian syndrome) Expected: 09/13/2022, Expires: 11/13/2022 [facility] Work Phone: Comment on above: Expected: 09/13/2022, Expires: 2 Start: 09-13-2022 End: 11-13-2022 MAGNESIUM RBC MAGNESIUM RBC Lab Routine Hot flashes Bloating PCOS (polycystic ovarian syndrome) Expected: 09/13/2022, Expires: 11/13/2022 [facility] Work Phone: Comment on above: Expected: 09/13/2022, Expires: 2 Start: 09-13-2022 End: 11-13-2022 Methylmalonate [Moles/volume] in Serum or Plasma METHYLMALONIC ACID Lab Routine Hot flashes Bloating PCOS (polycystic ovarian syndrome) Expected: 09/13/2022, Expires: 11/13/2022 [facility] Work Phone: Comment on above: Expected: 09/13/2022, Expires: 2 Start: 09-13-2022 End: 11-13-2022 OMEGACHECK OMEGACHECK Lab Routine Hot flashes Bloating PCOS (polycystic ovarian syndrome) Expected: 09/13/2022, Expires: 11/13/2022 [facility] Work Phone: Comment on above: Expected: 09/13/2022, Expires: 2 Start: 09-13-2022 End: 11-13-2022 Progesterone [Mass/volume] in Serum or Plasma PROGESTERONE BLD Lab Routine Hot flashes Bloating PCOS (polycystic ovarian syndrome) Expected: 09/13/2022, Expires: 11/13/2022 [facility] Work Phone: Comment on above: Expected: 09/13/2022, Expires: 2 Start: 09-13-2022 End: 11-13-2022 Sex hormone binding globulin [Moles/volume] in Serum or Plasma SEX-HORMONE BINDING Lab Routine Hot flashes Bloating PCOS (polycystic ovarian syndrome) Expected: 09/13/2022, Expires: 11/13/2022 [facility] Work Phone: Comment on above: Expected: 09/13/2022, Expires: 2 Start: 09-13-2022 End: 11-13-2022 TESTOSTERONE, FREE AND TOTAL TESTOSTERONE, FREE AND TOTAL Lab Routine Hot flashes Bloating PCOS (polycystic ovarian syndrome) Expected: 09/13/2022, Expires: 11/13/2022 [facility] Work Phone: Comment on above: Expected: 09/13/2022, Expires: 2 Start: 09-13-2022 End: 11-13-2022 Thyrotropin [Units/volume] in Serum or Plasma TSH BLD Lab Routine Hot flashes Bloating PCOS (polycystic ovarian syndrome) Expected: 09/13/2022, Expires: 11/13/2022 [facility] Work Phone: Comment on above: Expected: 09/13/2022, Expires: 2 Start: 09-13-2022 End: 11-13-2022 Thyroxine (T4) free [Mass/volume] in Serum or Plasma T4 FREE/FREE THYROX Lab Routine Hot flashes Bloating PCOS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 and swelling of the toes. Hard to make pincher grasp. Still felt like this had been the best combo of meds she's ever had. With a cervical disc herniation, currently on a medrol dose pack for that - In Aug, reported feeling poorly with the back pain returning and increased joint pain along with fatigue. With neuropathy symptoms of the feet. Simponi with neuropathy listed as a potential SE. Advised to stop simponi and start orencia - In Oct, started orencia. The first 4 weeks, w (more content not included)... [facility] 08-17-2025 Note HNO ID: [id number] Author: ADELE GIBSON APRN.ARELY Service: ? Author Type: Nurse Practitioner Type: Progress Notes Filed: 08/17/2025 11:59 Note Text: I have communicated my name and active licensure. The patient's identity and physical location were verified at the time of this visit. Either the patient or their legal care support representative has been informed of the risks and benefits of -- and alternatives to -- treatment through a remote evaluation and consents to proceed with the evaluation remotely. Subjective Kira Adhikari is a 39-year-old female presenting for evaluation of recurrent neck pain and radiculopathy. Kira has a history of C6-C7 disc issues on the right side, for which she has previously received epidural injections from Dr. Cheng. Her last injection was on November 04 at C7-T1, which provided approximately 80% improvement. However, she reports that the pain began to return in May, with significant discomfort in her ribs and neck stiffness extending into the scapula. She describes the pain as burning and notes that it radiates down her arm. She experiences constant pain, rated at 5/10 today, which disrupts her sleep and prevents her from sitting still. She reports minimal radiculopathy and does not endorse any weakness or numbness. Kira has tried medications without relief and is not ready for surgical intervention. In May, prior to a trip to [facility], and [facility], she experienced a flare-up of symptoms, which were managed with steroids. She prefers not to take steroids if possible. Kira is planning a river cruise to [place], [place], and [place] on September 20 and is seeking another epidural injection for symptom relief before her trip. She is available for the procedure on and requests a morning appointment. She uses Cambia powder (diclofenac) as needed but does not take any other medications. Objective LMP 03/06/2025 (Exact Date) GENERAL: alert and appropriate, in no distress Assessment AND Plan Herniation of cervical intervertebral disc with radiculopathy Foraminal stenosis of cervical region Spinal stenosis of cervical region Cervical myofascial pain syndrome Ordered and scheduled repeat C7-T1 RAQUEL for 10/06. If there is a cancellation she is available on a prior to her trip Visit was conducted via [employer] Patient Location: Patient Home or Place of Residence I spent a total of 12 minutes on the date of the service which included preparing to see the patient, [id number] patient care, completing clinical documentation, ordering medications, tests, or procedures, and care coordination (not separately reported). [facility] 08-17-2025 History of Present illness Narrative I have communicated my name and active licensure. The patient's identity and physical location were verified at the time of this visit. Either the patient or their legal care support representative has been informed of the risks and benefits of -- and alternatives to -- treatment through a remote evaluation and consents to proceed with the evaluation remotely. Subjective Kira Adhikari is a 39-year-old female presenting for evaluation of recurrent neck pain and radiculopathy. Kira has a history of C6-C7 disc issues on the right side, for which she has previously received epidural injections from Dr. Cheng. Her last injection was on November 04 at C7-T1, which provided approximately 80% improvement. However, she reports that the pain began to return in May, with significant discomfort in her ribs and neck stiffness extending into the scapula. She describes the pain as burning and notes that it radiates down her arm. She experiences constant pain, rated at 5/10 today, which disrupts her sleep and prevents her from sitting still. She reports minimal radiculopathy and does not endorse any weakness or numbness. Kira has tried medications without relief and is not ready for surgical intervention. In May, prior to a trip to [facility], and [facility], she experienced a flare-up of symptoms, which were managed with steroids. She prefers not to take steroids if possible. Kira is planning a river cruise to [place], [place], and [place] on September 20 and is seeking another epidural injection for symptom relief before her trip. She is available for the procedure on and requests a morning appointment. She uses Cambia powder (diclofenac) as needed but does not take any other medications. Objective LMP 03/06/2025 (Exact Date) GENERAL: alert and appropriate, in no distress Assessment & Plan Herniation of cervical intervertebral disc with radiculopathy Foraminal stenosis of cervical region Spinal stenosis of cervical region Cervical myofascial pain syndrome Ordered and scheduled repeat C7-T1 RAQUEL for 10/06. If there is a cancellation she is available on a prior to her trip Visit was conducted via [employer] Z[employer] Patient Location: Patient Home or Place of Residence I spent a total of 12 minutes on the date of the service which included preparing to see the patient, [id number] patient care, completing clinical documentation, ordering medications, tests, or procedures, and care coordination (not separately reported). documented in this encounter [facility] 07-26-2025 History of Present illness Narrative [facility] Refill Assessment Medication(s): Cosentyx Patient's current medication list and adherence status to current therapy were reviewed by Specialty Pharmacy clinical pharmacist to identify any new drug interactions or non-compliance to therapy. Therapy continues to be appropriate for disease, patient response, and medical condition. Verification of therapeutic benefit and effectiveness with current therapy was completed. Adverse events, barriers in adherence, and side effects were assessed and addressed if applicable. Will proceed with refill with no changes in therapy - patient progressing towards achieving therapeutic goals based on medication-specific laboratory parameters, disease state markers and outcomes. Office/provider notes have been reviewed prior to dispensing the medication. 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 Med/dose confirmed: Yes Supplies needed: No supplies needed Missed doses: No Estimated days supply on hand: 0 Next cycle/dose due: 07/28/25 Copay amount: 0 Delivery method: FedEx Signature required: No Delivery Address Options from [facility]: [facility] Home Delivery Address Calculated: [address] [place] [address] Delivery date: 07/28/25 Questions or concerns for the pharmacist?: No Did you have any side effects believed to be related to this medication, that resulted in hospitalization?: No Current Outpatient Medications on File Prior to Visit Medication Sig Diclofenac Potassium (CAMBIA) 50 mg pwpk Take 1 Packet by mouth as needed for migraine headache. Can repeat dose in 2 hours, no more than 2 doses per day, or 2 days per week predniSONE (DELTASONE) 10 mg tablet Take 3 tablets by mouth daily for 1 week, then 2 tablets daily by mouth for 1 week , then 1 tablet by mouth daily for 1 week, then stop. Please take with food. secukinumab (COSENTYX PEN) 150 mg/mL Inject 150mg (1 pen) subcutaneously at weeks 0, 1, 2, 3, and 4 and then every 4 weeks therafter. dihydroergotamine (DHE) 1 mg/mL injection Inject 1 mL intramuscular injection at headache onset. May repeat once per hour as needed up to 2 more doses. No more than 3 mL per 24 hours. leflunomide (ARAVA) 20 mg tablet TAKE 1 TABLET BY MOUTH EVERY DAY Filter [place] 19 x 1 1/2 ndle Use as directed with DHE. Draw up DHE solution with the filter needle and then switch to smaller needle for injection. Syringe with Needle, Disp, (BD TUBERCULIN SYRINGE) 1 mL 27 x 1/2 Use with DHE injections omeprazole (PRILOSEC) 40 mg capsule Take 1 capsule by mouth once daily. ondansetron (ZOFRAN) 8 mg tablet Take 1 tablet by mouth every 8 hours as needed for nausea/vomiting. progesterone micronized (PROMETRIUM) 100 mg capsule Take 1 capsule by mouth daily at bedtime. fremanezumab-vfrm (AJOVY AUTOINJECTOR) 225 mg/1.5 mL auto-injector Inject 4.5 mL under the skin every 3 months. buPROPion SR (WELLBUTRIN SR) 150 mg 12 hr tablet Take 1 tablet by mouth two times a day. rosuvastatin (CRESTOR) 5 mg tablet Take 1 tablet by mouth once daily. tirzepatide (MOUNJARO) 15 mg/0.5 mL pen injector Inject 15 mg subcutaneously one time a week. Dzvcmmlh0-Zvvxtf5-Xoiis therm. (VSL#3) 112.5 billion cell cap Take 2 capsules by mouth daily at bedtime. ondansetron (ZOFRAN) 4 mg tablet Take 1 tablet by mouth every 12 hours as needed for nausea/vomiting. clobetasol (TEMOVATE) 0.05 % ointment Apply 1 application to affected area two times a day. Magnesium Citrate 150mg (Pure Encapsulations) Take 4 capsules daily. riboflavin, vitamin B2, (VITAMIN B-2) 100 mg tab Take 4 tablets by mouth once daily. coenzyme Q10 (COQ-10) 100 mg cap capsule Take 1 capsule by mouth twice daily. vitamin D3-folic acid 5,000 unit- 1 mg tab Take 5,000 Units by mouth once daily. multivitamin tablet Take 1 tablet by mouth once daily. No current facility-administered medications on file prior to visit. [facility] RX SPECIALTY CLINICAL ASSESSMENT - INFLAMMATORY CONDITIONS V6: Assessment to use: Refill Date of influenza vaccination reminder: 07/06/2025 Date of most recent vaccination assessment: 07/06/2025 Treatment Plan Information: Cosentyx 150mg/mL auto-injector Inject 150mg (1 pen) subcutaneously at weeks 0, 1, 2, 3, and 4 and then every 4 weeks therafter. (M06.00) Seronegative rheumatoid arthritis Past treatment: Orencia, Simponi, Enbrel, Humira Est. Tx Plan Start Date: 07/07/2025 Estimated Start Date Info: No information available Est. Estimated Treatment Duration: Until loss of efficacy and/or no longer tolerated. Indy Severino documented in this encounter [facility] 07-26-2025 Note HNO ID: [id number] Author: ?, ?, ? Service: ? Author Type: ? Type: Progress Notes Filed: 07/26/2025 12:34 Note Text: [facility] Refill Assessment Medication(s): Cosentyx Patient's current medication list and adherence status to current therapy were reviewed by Specialty Pharmacy clinical pharmacist to identify any new drug interactions or non-compliance to therapy. Therapy continues to be appropriate for disease, patient response, and medical condition. Verification of therapeutic benefit and effectiveness with current therapy was completed. Adverse events, barriers in adherence, and side effects were assessed and addressed if applicable. Will proceed with refill with no changes in therapy - patient progressing towards achieving therapeutic goals based on medication-specific laboratory parameters, disease state markers and outcomes. Office/provider notes have been reviewed prior to dispensing the medication. 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 Med/dose confirmed: Yes Supplies needed: No supplies needed Missed doses: No Estimated days supply on hand: 0 Next cycle/dose due: 07/28/25 Copay amount: 0 Delivery method: FedEx Signature required: No Delivery Address Options from [facility]: [facility] Home Delivery Address Calculated: [address] [place] [address] Delivery date: 07/28/25 Questions or concerns for the pharmacist?: No Did you have any side effects believed to be related to this medication, that resulted in hospitalization?: No Current Outpatient Medications on File Prior to Visit Medication Sig Diclofenac Potassium (CAMBIA) 50 mg pwpk Take 1 Packet by mouth as needed for migraine headache. Can repeat dose in 2 hours, no more than 2 doses per day, or 2 days per week predniSONE (DELTASONE) 10 mg tablet Take 3 tablets by mouth daily for 1 week, then 2 tablets daily by mouth for 1 week , then 1 tablet by mouth daily for 1 week, then stop. Please take with food. secukinumab (COSENTYX PEN) 150 mg/mL Inject 150mg (1 pen) subcutaneously at weeks 0, 1, 2, 3, and 4 and then every 4 weeks therafter. dihydroergotamine (DHE) 1 mg/mL injection Inject 1 mL intramuscular injection at headache onset. May repeat once per hour as needed up to 2 more doses. No more than 3 mL per 24 hours. leflunomide (ARAVA) 20 mg tablet TAKE 1 TABLET BY MOUTH EVERY DAY Filter [place] 19 x 1 1/2 ndle Use as directed with DHE. Draw up DHE solution with the filter needle and then switch to smaller needle for injection. Syringe with Needle, Disp, (BD TUBERCULIN SYRINGE) 1 mL 27 x 1/2 Use with DHE injections omeprazole (PRILOSEC) 40 mg capsule Take 1 capsule by mouth once daily. ondansetron (ZOFRAN) 8 mg tablet Take 1 tablet by mouth every 8 hours as needed for nausea/vomiting. progesterone micronized (PROMETRIUM) 100 mg capsule Take 1 capsule by mouth daily at bedtime. fremanezumab-vfrm (AJOVY AUTOINJECTOR) 225 mg/1.5 mL auto-injector Inject 4.5 mL under the skin every 3 months. buPROPion SR (WELLBUTRIN SR) 150 mg 12 hr tablet Take 1 tablet by mouth two times a day. rosuvastatin (CRESTOR) 5 mg tablet Take 1 tablet by mouth once daily. tirzepatide (MOUNJARO) 15 mg/0.5 mL pen injector Inject 15 mg subcutaneously one time a week. Zkbvxrbz7-Mylbgl4-Takst therm. (VSL#3) 112.5 billion cell cap Take 2 capsules by mouth daily at bedtime. ondansetron (ZOFRAN) 4 mg tablet Take 1 tablet by mouth every 12 hours as needed for nausea/vomiting. clobetasol (TEMOVATE) 0.05 % ointment Apply 1 application to affected area two times a day. Magnesium Citrate 150mg (Pure Encapsulations) Take 4 capsules daily. riboflavin, vitamin B2, (VITAMIN B-2) 100 mg tab Take 4 tablets by mouth once daily. coenzyme Q10 (COQ-10) 100 mg cap capsule Take 1 capsule by mouth twice daily. vitamin D3-folic acid 5,000 unit- 1 mg tab Take 5,000 Units by mouth once daily. multivitamin tablet Take 1 tablet by mouth once daily. No current facility-administered medications on file prior to visit. [facility] RX SPECIALTY CLINICAL ASSESSMENT - INFLAMMATORY CONDITIONS V6: Assessment to use: Refill Date of influenza vaccination reminder: 07/06/2025 Date of most recent vaccination assessment: 07/06/2025 Treatment Plan Information: Cosentyx 150mg/mL auto-injector Inject 150mg (1 pen) subcutaneously at weeks 0, 1, 2, 3, and 4 and then every 4 weeks therafter. (M06.00) Seronegative rheumatoid arthritis Past treatment: Florecita Davis Enbrel, Humira Est. Tx Plan Start Date: 07/07/2025 Estimated Start Date Info: No information available Est. Estimated Treatment Duration: Until loss of efficacy and/or no longer tolerated. Indy Severino [facility] 07-21-2025 Note HNO ID: [id number] Author: SUNIL OWEN, DO Service: ? Author Type: Physician Type: Progress Notes Filed: 07/21/2025 11:11 Note Text: Headache Center - Follow-up Visit ASSESSMENT: 39 year old female with history significant for migraine with aura, chronic migraine, PCOS, TMD, cervical disk herniation, neck pain, autoimmune arthritis, with variable cycles of high frequency episodic migraine and chronic migraine with contributions from occipital neuralgia and cervicogenic headache. PLAN: (Please see typed patient instructions for detailed instructions) ---> Acute Treatment: -Cambia helps. Generic diclofenac was not effective. -Trudhesa DHE ns not covered so we'll send injectable DHE for rescue. ---> Preventive Treatment: -Continue Ajovy quarterly. She feels this has helped. We discussed future consideration of changing to Vyepti for additional efficacy. -Botox today. ---> Follow-up: 3 months for Botox. Kira Adhikari has been previously approved for Calcitonin Gene Related Peptide Monoclonal Antibody (CGRP MAB) (Fremanezumab). The patient has demonstrated the following: Patient reduction in overall migraine days: Yes Patient reduction in moderate-severe migraine days: Yes Individual has obtained clinical benefit deemed significant by individual or prescriber: Yes Patient's quality of life and ability to perform ADLs has improved: Yes We suggest the patient continue treatment with CGRP MAB Fremanezumab. The following preventative medications have been tried for three or more months without benefit: Anti-Convulsant Divalproex sodium (Depakote) Pregabalin (Lyrica) Topiramate (Topamax, Trokendi XL, Qudexy) no benefit Anti-Depressant and Antipsychotic Bupropion (Wellbutrin) Duloxetine (Cymbalta) Nortriptyline (Pamelor, Aventyl) Blood Pressure Metoprolol (Lopressor,Toprol XL) Propranolol (Inderal) initial benefit GEPANTS Atogepant MABs Erenumab (Aimovig) Fremanezumab (Ajovy) Botulinum Toxin Onabotulinum Toxin A (Botox), Onabotulimum Toxin A (Botox) 6 years loss of efficacy, done with gen neuro outside of center Supplements CoQ10 Magnesium Riboflavin The following abortive medications have been tried but require high frequency use which can lead to Medication Overuse Headache: Analgesic Diclofenac (Voltaren, Cataflam, Cambia) Cambia works well. Generic diclofenac is not effective Indomethacin (Indocin) no benefit Ketorolac (Toradol) no benefit Meperidine (Demerol) Morphine (Mellissa, Ms Contin) Oxycodone Oxycodone/Acetaminophen (Percocet) Anti-Anxiety Diazepam (Valium) Anti-Migraine Lasmiditan (Reyvow) Rizatriptan (Maxalt) ineffective Sumatriptan (Imitrex, Sumavel) ineffective GEPANTS Ubrogepant (Ubrelvy) Rimegepant (Nurtec) no benefit Over the Counter Medications Acetaminophen (Tylenol) Acetaminophen/Aspirin/Caffeine (Excedrin, Goody?s) Aspirin Ibuprofen (Advil, Motrin) Naproxen sodium (Aleve) Last Visit: 04/06/25 Interval Headache Hx: [place] she did well with last Botox. Interval Testing: n/a Follow-Up Onabotulinum Toxin A (BotoxTM) for Migraine Indication: Chronic Intractable Migraine Treatment #: 2 Referral Expiration: 01/01/2026 Prior to the initiation of the FIRST treatment with Onabotulinum Toxin A, the patient reported the following average headache frequency over the past 3 MONTHS: Number of moderate-severe migraine days/month: 30 (daily) Number of mild migraine days/month: 0 Number of headache free days/month: 0 (0 headache-free hours) Migraine severity: 10/10 After treatment with Onabotulinum Toxin A: Number of moderate-severe migraine days/month: 2 Number of mild migraine days/month: 10 Number of headache free days/month: 18 (432 headache-free hours) Migraine severity: 5/10 Patient reduction in overall migraine days: Yes Patient reduction in moderate-severe migraine days: Yes Patient reduction of headache hours by 100 hours or more: Yes (reduction of 432 hours) Individual has obtained clinical benefit deemed significant by individual or prescriber (Y/N): Yes Patient's quality of life and ability to perform ADLs has improved (Y/N): Yes Side effects: none Wearing off: No The patient has been assessed for disorders which could contribute to breathing or swallowing difficulty, and there is no contraindication with PREEMPT Botox. There is no documented allergic reaction/hypersensitivity to any botulinum toxin and there is no active infection at proposed injection site. HEADACHE SCORES: 01/01/2024 04/05/2025 07/20/2025 Headache Questions ER visits since last office visit: 0 0 0 Hospital stays since last office visit 0 0 0 Limited ADLs in the last month: 12 10 5 Days missed from work or school in the last month: 0 0 0 Days headache pain free in the last month: 3 5 5 Days per (more content not included)... [facility] 07-21-2025 History of Present illness Narrative Images from the original note were not included. Headache Center - Follow-up Visit ASSESSMENT: 39 year old female with history significant for migraine with aura, chronic migraine, PCOS, TMD, cervical disk herniation, neck pain, autoimmune arthritis, with variable cycles of high frequency episodic migraine and chronic migraine with contributions from occipital neuralgia and cervicogenic headache. PLAN: (Please see typed patient instructions for detailed instructions) ---> Acute Treatment: -Cambia helps. Generic diclofenac was not effective. -Trudhesa DHE ns not covered so we'll send injectable DHE for rescue. ---> Preventive Treatment: -Continue Ajovy quarterly. She feels this has helped. We discussed future consideration of changing to Vyepti for additional efficacy. -Botox today. ---> Follow-up: 3 months for Botox. Kira Adhikari has been previously approved for Calcitonin Gene Related Peptide Monoclonal Antibody (CGRP MAB) (Fremanezumab). The patient has demonstrated the following: Patient reduction in overall migraine days: Yes Patient reduction in moderate-severe migraine days: Yes Individual has obtained clinical benefit deemed significant by individual or prescriber: Yes Patient's quality of life and ability to perform ADLs has improved: Yes We suggest the patient continue treatment with CGRP MAB Fremanezumab. The following preventative medications have been tried for three or more months without benefit: Anti-Convulsant Divalproex sodium (Depakote) Pregabalin (Lyrica) Topiramate (Topamax, Trokendi XL, Qudexy) no benefit Anti-Depressant and Antipsychotic Bupropion (Wellbutrin) Duloxetine (Cymbalta) Nortriptyline (Pamelor, Aventyl) Blood Pressure Metoprolol (Lopressor,Toprol XL) Propranolol (Inderal) initial benefit GEPANTS Atogepant MABs Erenumab (Aimovig) Fremanezumab (Ajovy) Botulinum Toxin Onabotulinum Toxin A (Botox), Onabotulimum Toxin A (Botox) 6 years loss of efficacy, done with gen neuro outside of center Supplements CoQ10 Magnesium Riboflavin The following abortive medications have been tried but require high frequency use which can lead to Medication Overuse Headache: Analgesic Diclofenac (Voltaren, Cataflam, Cambia) Cambia works well. Generic diclofenac is not effective Indomethacin (Indocin) no benefit Ketorolac (Toradol) no benefit Meperidine (Demerol) Morphine (Mellissa, Ms Contin) Oxycodone Oxycodone/Acetaminophen (Percocet) Anti-Anxiety Diazepam (Valium) Anti-Migraine Lasmiditan (Reyvow) Rizatriptan (Maxalt) ineffective Sumatriptan (Imitrex, Sumavel) ineffective GEPANTS Ubrogepant (Ubrelvy) Rimegepant (Nurtec) no benefit Over the Counter Medications Acetaminophen (Tylenol) Acetaminophen/Aspirin/Caffeine (Excedrin, Goody s) Aspirin Ibuprofen (Advil, Motrin) Naproxen sodium (Aleve) Last Visit: 04/06/25 Interval Headache Hx: [place] she did well with last Botox. Interval Testing: n/a Follow-Up Onabotulinum Toxin A (BotoxTM) for Migraine Indication: Chronic Intractable Migraine Treatment #: 2 Referral Expiration: 01/01/2026 Prior to the initiation of the FIRST treatment with Onabotulinum Toxin A, the patient reported the following average headache frequency over the past 3 MONTHS: Number of moderate-severe migraine days/month: 30 (daily) Number of mild migraine days/month: 0 Number of headache free days/month: 0 (0 headache-free hours) Migraine severity: 10/10 After treatment with Onabotulinum Toxin A: Number of moderate-severe migraine days/month: 2 Number of mild migraine days/month: 10 Number of headache free days/month: 18 (432 headache-free hours) Migraine severity: 04/09 Patient reduction in overall migraine days: Yes Patient reduction in moderate-severe migraine days: Yes Patient reduction of headache hours by 100 hours or more: Yes (reduction of 432 hours) Individual has obtained clinical benefit deemed significant by individual or prescriber (Y/N): Yes Patient's quality of life and ability to perform ADLs has improved (Y/N): Yes Side effects: none Wearing off: No The patient has been assessed for disorders which could contribute to breathing or swallowing difficulty, and there is no contraindication with PREEMPT Botox. There is no documented allergic reaction/hypersensitivity to any botulinum toxin and there is no active infection at proposed injection site. HEADACHE SCORES: 01/01/2024 04/05/2025 07/20/2025 Headache Questions ER visits since last office visit: 0 0 0 Hospital stays since last office visit 0 0 0 Limited ADLs in the last month: 12 10 5 Days missed from work or school in the last month: 0 0 0 Days headache pain free in the last month: 3 5 5 Days per month with ALL of the following symptoms - decreased productivity, light sensitivity and nausea: 2 5 3 Initial improvement of headache after botox injection at last visit: Not applicable, I did not have a botox injection at my last visit Not applicable, I did not have a botox injection at my last visit Much improved PRN medication usage in the last month: 10 10 10 Patient impression of improvement since last visit: No change Minimally improved Minimally improved 12/30/2024 04/05/2025 07/20/2025 HIT-6 HIT-6 67 (Severe impact) 64 (Severe impact) 67 (Severe impact) 12/30/2024 04/05/2025 07/20/2025 LETICIA - 2/7 SCORES LETICIA-2 Score 2 0 0 03/29/2021 05/22/2021 Pain Disability Index PDI Score 45 22 12/30/2024 04/05/2025 07/20/2025 Migraine Specific QOL - Higher scores indicate better HRQL Role Function-Restrictive Transformed Score (range: 0-100) 0 40 40 Role Function-Preventive Transformed Score (range: 0-100) 45 55 60 Emotional Function Transformed Score (range: 0-100) 0 46.67 60 12/30/2024 04/05/2025 07/20/2025 PHQ-9 Score 9 2 1 LMP 03/06/2025 (Exact Date) Patient name: Kira Adhikari : 1985 ALLERGIES Allergen Reactions Dilaudid [Hydromorp* Itching Fentanyl Itching Sulfa (Sulfonamide * Rash UNIVERSAL PROTOCOL / SAFETY CHECKLIST Procedure to be Performed: Botox Sign In: A Moment of CARE was completed. Appropriate PPE (Personal Protective Equipment) worn by all providers involved with the procedure. Special equipment not required. Patient/Surrogate Stated/Verified: Patient name, Date of , Relevant allergies, and The intended procedure Time Out: Relevant labs, photos, and/or imaging studies have been reviewed. Intended patient and procedure match the source document(s) (e.g. consent, H&P, associated studies [imaging, pathology]) match the intended patient and procedure. Consent obtained and matches the intended procedure. Yes. Correct side/site has been marked and visible. Medications required for this procedure are verified. Fire risk assessed and is not applicable. Implants: are not applicable. Sign Out: Specimens are all correctly labeled and sent. All instruments, equipment, possible retained foreign bodies are accounted for. Yes. The post-procedure plan of care has been communicated to the patient or surrogate. UNIVERSAL PROTOCOL / SAFETY CHECKLIST Procedure: Onabotulinum toxin A for migraine Informed Consent Consent Obtained: Written Bailey Protocol A moment to CARE was completed SIGN IN Personnel directly involved with the procedure wore the appropriate PPE Special Equipment: N/A Patient/Surrogate Stated/Verified: Patient name, Date of , Relevant allergies and Intended procedure TIME OUT Relevant labs, photos, and/or imaging studies have been reviewed. Intended patient and procedure match source documents. Consent obtained and matches the intended procedure Correct side/site marked and visible. Medications required for procedure verified. No fire risk assessment and interventions applicable. No implant(s) inserted. SIGN OUT All instruments, equipment, possible retained foreign bodies accounted for. No post-procedure POC communication to the patient or surrogate applicable. Written Consent Obtained: Written LOT #: [id number] Expiration Date: Month: 11 Year: 2026 Injection Sites Left (Units) Left (Sites) Right (Units) Right (Sites) TOTAL (Units) Blasting Entryman 5 1 5 1 10 Procerus Units: 5 Sites: 1 5 Frontalis 10 2 10 2 20 Temporalis 25 5 25 5 50 Occipitalis 25 4 25 4 50 Cervical PSP 10 2 10 2 20 Trapezius 22.5 5 22.5 5 45 Total Units used: 200 Total Units wasted: 0 Prior Therapies Duration of Use Dose Side effect Other Therapies Nerve blocks Physical therapy Analgesic Diclofenac (Voltaren, Cataflam, Cambia) Cambia works well. Generic diclofenac is not effective Indomethacin (Indocin) no benefit Ketorolac (Toradol) no benefit Meperidine (Demerol) Morphine (Mellissa, Ms Contin) Oxycodone Oxycodone/Acetaminophen (Percocet) Anti-Anxiety Diazepam (Valium) Anti-Convulsant Divalproex sodium (Depakote) Pregabalin (Lyrica) Topiramate (Topamax, Trokendi XL, Qudexy) no benefit Anti-Depressant and Antipsychotic Bupropion (Wellbutrin) Duloxetine (Cymbalta) Nortriptyline (Pamelor, Aventyl) Antiemetics Metoclopramide Ondansetron zofran Anti-Migraine Lasmiditan (Reyvow) Rizatriptan (Maxalt) ineffective Sumatriptan (Imitrex, Sumavel) ineffective Blood Pressure Metoprolol (Lopressor,Toprol XL) Propranolol (Inderal) initial benefit MABs Erenumab (Aimovig) Fremanezumab (Ajovy) GEPANTS Ubrogepant (Ubrelvy) Rimegepant (Nurtec) no benefit Atogepant Botulinum Toxin Onabotulinum Toxin A (Botox), Onabotulimum Toxin A (Botox) 6 years loss of efficacy, done with gen neuro outside of center Muscle Relaxer Baclofen (Lioresal) ineffective Chlorzoxazone (Parafon Forte) Cyclobenzaprine (Flexeril) ineffective Metaxalone (Skelaxin) Methocarbamol (Robaxin) lost efficacy Supplements CoQ10 Magnesium Riboflavin Other Medications Cyproheptadine (Periactin) Dexamethasone (Decadron) Diphenhydramine (Benadryl) Methylprednisolone (Medrol) Prednisone Over the Counter Medications Acetaminophen (Tylenol) Acetaminophen/Aspirin/Caffeine (Excedrin, Goody s) Aspirin Ibuprofen (Advil, Motrin) Naproxen sodium (Aleve) Sunil Owen, DO -------- PMH: 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 Please take with food. secukinumab (COSENTYX PEN) 150 mg/mL Inject 150mg (1 pen) subcutaneously at weeks 0, 1, 2, 3, and 4 and then every 4 weeks therafter. dihydroergotamine (DHE) 1 mg/mL injection Inject 1 mL intramuscular injection at headache onset. May repeat once per hour as needed up to 2 more doses. No more than 3 mL per 24 hours. leflunomide (ARAVA) 20 mg tablet TAKE 1 TABLET BY MOUTH EVERY DAY Filter [place] 19 x 1 1/2 ndle Use as directed with DHE. Draw up DHE solution with the filter needle and then switch to smaller needle for injection. Syringe with Needle, Disp, (BD TUBERCULIN SYRINGE) 1 mL 27 x 1/2 Use with DHE injections omeprazole (PRILOSEC) 40 mg capsule Take 1 capsule by mouth once daily. ondansetron (ZOFRAN) 8 mg tablet Take 1 tablet by mouth every 8 hours as needed for nausea/vomiting. progesterone micronized (PROMETRIUM) 100 mg capsule Take 1 capsule by mouth daily at bedtime. fremanezumab-vfrm (AJOVY AUTOINJECTOR) 225 mg/1.5 mL auto-injector Inject 4.5 mL under the skin every 3 months. buPROPion SR (WELLBUTRIN SR) 150 mg 12 hr tablet Take 1 tablet by mouth two times a day. rosuvastatin (CRESTOR) 5 mg tablet Take 1 tablet by mouth once daily. tirzepatide (MOUNJARO) 15 mg/0.5 mL pen injector Inject 15 mg subcutaneously one time a week. Diclofenac Potassium (CAMBIA) 50 mg pwpk Take 1 Packet by mouth as needed for migraine headache. Can repeat dose in 2 hours, no more than 2 doses per day, or 2 days per week Zsewczal4-Kbonct1-Xhcax therm. (VSL#3) 112.5 billion cell cap Take 2 capsules by mouth daily at bedtime. ondansetron (ZOFRAN) 4 mg tablet Take 1 tablet by mouth every 12 hours as needed for nausea/vomiting. clobetasol (TEMOVATE) 0.05 % ointment Apply 1 application to affected area two times a day. Magnesium Citrate 150mg (Pure Encapsulations) Take 4 capsules daily. riboflavin, vitamin B2, (VITAMIN B-2) 100 mg tab Take 4 tablets by mouth once daily. coenzyme Q10 (COQ-10) 100 mg cap capsule Take 1 capsule by mouth twice daily. vitamin D3-folic acid 5,000 unit- 1 mg tab Take 5,000 Units by mouth once daily. multivitamin tablet Take 1 tablet by mouth once daily. Current Facility-Administered Medications Medication Dose Route Frequency onabotulinum toxin type A 200 Units injection (BOTOX) 200 Units INTRAMUSCULAR ONCE REVIEW OF SYSTEMS: Review of system : unchanged from the previous visit (sleep patterns, mood, energy, appetite, stress, exercising). Physical Examination: BP 113/75 Pulse 92 Wt 61.2 kg (135 lb) LMP 03/06/2025 (Exact Date) BMI 22.47 kg/m GEN: Alert. NAD. Normal affect. Cooperative. NECK/BACK: Suboccipital tenderness present. Paracervical and upper shoulder musculature/traps tenderness and hypertonicity present. NEUROLOGICAL: A+O x 3. Attentive. Thought process and content unremarkable. Follows commands appropriately. Speech fluent. Sunil Owen DO [facility] [place] Department of Neurology [facility] [address] [place], [place] [id number] Level of service: Est level 2 (10-19 min). Time spent 18 min on the day of service, which included preparing to see the patient, [id number] patient care, completing clinical documentation, obtaining and/or reviewing separately obtained history, performing a medically appropriate examination, counseling and educating the patient/family/caregiver, ordering medications, tests, or procedures, and communicating with other HCPs (not separately reported). Medical Decision Making: Medical Decision Making Level: 1 - N/A cc: David Kilgore [address] [place], [place] [id number] documented in this encounter [facility] 07-05-2025 History of Present illness Narrative No [id number]} documented in this encounter [facility] 07-05-2025 Note HNO ID: [id number] Author: ADELE GIBSON APRN.CNP Service: ? Author Type: Nurse Practitioner Type: Progress Notes Filed: 07/11/2025 08:34 Note Text: No [email or web address]} [facility] 07-04-2025 Note HNO ID: [id number] Author: ADELE GIBSON APRN.CNP Service: ? Author Type: Nurse Practitioner Type: Progress Notes Filed: 07/04/2025 09:40 Note Text: No show [facility] 07-04-2025 History of Present illness Narrative No show documented in this encounter [facility] 06-08-2025 History of Present illness Narrative Discontinuation Assessment completed for the medication Orencia . Patient no longer requires [facility] Patient Management Program Services at this time for this medication. Medication change to Cosentyx. Radha Lara CPhT, Check Writing Machine Operator, Inflammatory/Allergy [facility] P: [phone] F: [phone] documented in this encounter [facility] 06-08-2025 Note HNO ID: [id number] Author: ?, ?, ? Service: ? Author Type: ? Type: Progress Notes Filed: 06/08/2025 08:05 Note Text: Discontinuation Assessment completed for the medication Orencia . Patient no longer requires [facility] Patient Management Program Services at this time for this medication. Medication change to Cosentyx. Radha Lara CPhT, Check Writing Machine Operator, Inflammatory/Allergy [facility] P: [phone] F: [phone] [facility] 05-31-2025 Telephone encounter Note Pred rx sent [facility] 05-31-2025 Miscellaneous Notes Pred rx sent documented in this encounter [facility] 05-24-2025 Note Formatting of this n ote is different from the original. Last 3 Encounter BP Readings: Date: BP: 04/06/2025 116/81 03/16/2025 107/61 02/04/2025 114/76 LDL:HDL RATIO Applies to members that are diet and Exercise controlled LDL:HDL RATIO does not apply to members on a statin Last 3 LDL readings: LDL Cholesterol, Calculated (mg/dL) Date Value 06/16/2024 82 01/29/2023 81 10/04/2022 195 01/23/2021 179 02/03/2020 178 No results found for: LDLCHOLDIR LDL:HDL Ratio Date Value Ref Range Status 06/16/2024 1.37 <2.54 Final Comment: Reference: 1. National Cholesterol Education Program ATP III Guideline At-A-Glance Quick Desk Reference: National Heart, Lung, and Blood [place]. National Institutes of Health. 2001: NIH Publication No. 01-3305. 2. An International Atherosclerosis Society position paper: global recommendations for the management of dyslipidemia: executive summary, Atherosclerosis. 2014: 232(2):410-413. Hemoglobin A1C (%) Date Value 10/04/2022 4.9 01/23/2021 5.2 Lab Results Component Value Date HBA1C 4.9 10/04/2022 HBA1C 5.2 01/23/2021 MEDICATIONS PER RX DATABASE ROSUVASTATIN AJOVY, CAMBIA, BOTOX Adherent with medication refills YES Date Verified 05/24/2025 Is member submitting receipts for Reimbursement NO Is member eligible for medication reimbursement Yes Is Employee Health Plan primary Yes Member resides in [facility] 2-3 personal identifiers!!! Best time to reach you - Preferred form of contact (phone, email, Mychart) Lifestyles: Do you know how to access Health Visit Portal? Health Visit Form required? Any Changes in Health, ER/Hospital admits since last contact Medical Equipment: (Blood Pressure monitor, CPAP, Peak flow meter, Nebulizer, Glucometer, CGM, Insulin Pump) Last MD Appointment Food What types of foods are you eat? What types of foods are you avoiding? Regional Manager? Current exercise/Activity Restrictions? Instructions? Sleep Nicotine?---Ask once a year Co-pay Reimbursement--Review Annually Managing your healthy choice program(s) How confident are you in your ability to control this condition? Understand risks of untreated condition? Are you checking (Blood Sugar, Blood Pressure, weighing self) Meds / OTC - Taking any medications for Weight loss Is member adherent with medication refills? Aware of side effects? Next MD appt Labs - Is Lipid required (under 40 need baseline, Over 40 every 3 years, with History of Hyperlipidemia annually) Blood Pressure Required annually in weight program from acceptable location. Readiness to change:--At least annually for non adherent members Goals to work on between now and next call Depression screening--Is upon enrollment and as needed Asthma--Action reviewed with provider Annual? ACT Current / Unexpired Rescue inhaler Diabetes: Blood sugar--frequency and range Required lab work: A1C at least 2x/year Urine Micro-albumin annual Special exams: Annual Foot exam Annual dilated eye exam [facility] 05-24-2025 Miscellaneous Notes Last 3 Encounter BP Readings: Date: BP: 04/06/2025 116/81 03/16/2025 107/61 02/04/2025 114/76 LDL:HDL RATIO Applies to members that are diet and Exercise controlled LDL:HDL RATIO does not apply to members on a statin Last 3 LDL readings: LDL Cholesterol, Calculated (mg/dL) Date Value 06/16/2024 82 01/29/2023 81 10/04/2022 195 01/23/2021 179 02/03/2020 178 No results found for: LDLCHOLDIR LDL:HDL Ratio Date Value Ref Range Status 06/16/2024 1.37 <2.54 Final Comment: Reference: 1. National Cholesterol Education Program ATP III Guideline At-A-Glance Quick Desk Reference: National Heart, Lung, and Blood [place]. National Institutes of Health. 2001: NIH Publication No. 01-3305. 2. An International Atherosclerosis Society position paper: global recommendations for the management of dyslipidemia: executive summary, Atherosclerosis. 2014: 232(2):410-413. Hemoglobin A1C (%) Date Value 10/04/2022 4.9 01/23/2021 5.2 Lab Results Component Value Date HBA1C 4.9 10/04/2022 HBA1C 5.2 01/23/2021 MEDICATIONS PER RX DATABASE ROSUVASTATIN AJOVY, CAMBIA, BOTOX Adherent with medication refills YES Date Verified 05/24/2025 Is member submitting receipts for Reimbursement NO Is member eligible for medication reimbursement Yes Is Employee Health Plan primary Yes Member resides in [facility] 2-3 personal identifiers!!! Best time to reach you - Preferred form of contact (phone, email, Mychart) Lifestyles: Do you know how to access Health Visit Portal? Health Visit Form required? Any Changes in Health, ER/Hospital admits since last contact Medical Equipment: (Blood Pressure monitor, CPAP, Peak flow meter, Nebulizer, Glucometer, CGM, Insulin Pump) Last MD Appointment Food What types of foods are you eat? What types of foods are you avoiding? Regional Manager? Current exercise/Activity Restrictions? Instructions? Sleep Nicotine?---Ask once a year Co-pay Reimbursement--Review Annually Managing your healthy choice program(s) How confident are you in your ability to control this condition? Understand risks of untreated condition? Are you checking (Blood Sugar, Blood Pressure, weighing self) Meds / OTC - Taking any medications for Weight loss Is member adherent with medication refills? Aware of side effects? Next MD appt Labs - Is Lipid required (under 40 need baseline, Over 40 every 3 years, with History of Hyperlipidemia annually) Blood Pressure Required annually in weight program from acceptable location. Readiness to change:--At least annually for non adherent members Goals to work on between now and next call Depression screening--Is upon enrollment and as needed Asthma--Action reviewed with provider Annual? ACT Current / Unexpired Rescue inhaler Diabetes: Blood sugar--frequency and range Required lab work: A1C at least 2x/year Urine Micro-albumin annual Special exams: Annual Foot exam Annual dilated eye exam documented in this encounter [facility] 05-18-2025 History of Present illness Narrative [facility] received prescription(s) for Cosentyx from Dr. Ajit Torre's office. Benefits investigation was conducted, indicating that a prior authorization is required by patient's insurance plan with [facility]. Encounter will be updated once prior authorization has been submitted by [facility]. Indy Severino [facility] documented in this encounter [facility] 05-18-2025 Note HNO ID: [id number] Author: ?, ?, ? Service: ? Author Type: ? Type: Progress Notes Filed: 05/18/2025 12:35 Note Text: [facility] received prescription(s) for Cosentyx from Dr. Ajit Torre's office. Benefits investigation was conducted, indicating that a prior authorization is required by patient's insurance plan with [facility]. Encounter will be updated once prior authorization has been submitted by [facility]. Indy Severino [facility] 05-18-2025 Note HNO ID: [id number] Author: ?, ?, ? Service: ? Author Type: ? Type: Progress Notes Filed: 06/07/2025 17:05 Note Text: Cosentyx PA was approved with details listed below. Plan Name: [facility] reference number: [id number] Approval Dates: 06/07/2025 through 09/05/2025 Prescriptions will now be processed through [facility] for determination of next steps. Radha Lara [facility], Check Writing Machine Operator, Inflammatory/Allergy [facility] P: [phone] F: [phone] [facility] 05-18-2025 Note HNO ID: [id number] Author: NADEGE HUGGINS [facility] Service: ? Author Type: Pharmacist Type: Progress Notes Filed: 07/06/2025 12:26 Note Text: [facility] received prescription(s) for Cosentyx from Dr. Ajit Torre's office. Benefits investigation was conducted, indicating that a prior authorization is required. PA was approved with details listed below: Plan Name: [facility] reference number: [id number] Approval Dates: 06/07/2025 through 09/05/2025 Pt's copay is $0. Shipment has been arranged, and pt will receive medication(s) on 07/07/25. Pt has been instructed to follow-up with clinic to confirm start date. A full drug interaction report was conducted. I reviewed with patient appropriate dose and dosing frequency, administration directions (Inject 150mg (1 pen) subcutaneously at weeks 0, 1, 2, 3, and 4 and then every 4 weeks therafter.), potential side effects, ability to self-administer and proper storage and handling requirements. S/he expressed understanding of the information we provided today, and received our contact information for the pharmacy if s/he had any other questions. Office/provider notes have been reviewed prior to dispensing the medication. 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 - dihydroergotamine (DHE) 1 mg/mL injection Inject 1 mL intramuscular injection at headache onset. May repeat once per hour as needed up to 2 more doses. No more than 3 mL per 24 hours. - leflunomide (ARAVA) 20 mg tablet TAKE 1 TABLET BY MOUTH EVERY DAY - Filter [place] 19 x 1 1/2 ndle Use as directed with DHE. Draw up DHE solution with the filter needle and then switch to smaller needle for injection. - Syringe with Needle, Disp, (BD TUBERCULIN SYRINGE) 1 mL 27 x 1/2 Use with DHE injections - omeprazole (PRILOSEC) 40 mg capsule Take 1 capsule by mouth once daily. - ondansetron (ZOFRAN) 8 mg tablet Take 1 tablet by mouth every 8 hours as needed for nausea/vomiting. - progesterone micronized (PROMETRIUM) 100 mg capsule Take 1 capsule by mouth daily at bedtime. - fremanezumab-vfrm (AJOVY AUTOINJECTOR) 225 mg/1.5 mL auto-injector Inject 4.5 mL under the skin every 3 months. - buPROPion SR (WELLBUTRIN SR) 150 mg 12 hr tablet Take 1 tablet by mouth two times a day. - rosuvastatin (CRESTOR) 5 mg tablet Take 1 tablet by mouth once daily. - tirzepatide (MOUNJARO) 15 mg/0.5 mL pen injector Inject 15 mg subcutaneously one time a week. - Diclofenac Potassium (CAMBIA) 50 mg pwpk Take 1 Packet by mouth as needed for migraine headache. Can repeat dose in 2 hours, no more than 2 doses per day, or 2 days per week - Npgtigfr2-Thyhtp3-Bfert therm. (VSL#3) 112.5 billion cell cap Take 2 capsules by mouth daily at bedtime. - ondansetron (ZOFRAN) 4 mg tablet Take 1 tablet by mouth every 12 hours as needed for nausea/vomiting. - clobetasol (TEMOVATE) 0.05 % ointment Apply 1 application to affected area two times a day. - Magnesium Citrate 150mg (Pure Encapsulations) Take 4 capsules daily. - riboflavin, vitamin B2, (VITAMIN B-2) 100 mg tab Take 4 tablets by mouth once daily. - coenzyme Q10 (COQ-10) 100 mg cap capsule Take 1 capsule by mouth twice daily. - vitamin D3-folic acid 5,000 unit- 1 mg tab Take 5,000 Units by mouth once daily. - multivitamin tablet Take 1 tablet by mouth once daily. No current facility-administered medications on file prior to visit. ALLERGIES Allergen Reactions - Dilaudid [Hydromorp* Itching - Fentanyl Itching - Sulfa (Sulfonamide * Rash Problem List Noted Noted By Resolved Resolved By Low back pain 02/01/2025 Beatriz Melissa, PT No Cervicogenic headache 12/30/2024 Owen, Sunil P, DO No Chronic daily headache 12/30/2024 Owen, Sunil P, DO No Spasm of muscle 12/30/2024 Owen, Sunil P, DO No Spinal stenosis of cervical region 09/07/2024 Beatriz Melissa, PT No Intractable chronic migraine without aura and without status migrainosus 07/22/2023 Owen, Sunil P, DO No Chronic migraine without aura, intractable, without status migrainosus 07/22/2023 Owen, Sunil P, DO No Migraine with aura and without status migrainosus, not intractable 07/22/2023 Owen, Sunil P, DO No Cervicalgia 07/22/2023 Owen, Sunil P, DO No Bilateral occipital neuralgia 07/22/2023 Owen, Sunil P, DO No Vitamin D deficiency 06/26/2023 Maddie Moraes, BEAUTY CULTURIST.MILLED RICE BROKER No Acute post-operative pain 06/12/2023 Dian Sierra PA-C No PVC's (premature ventricular contractio (more content not included)... [facility] 05-18-2025 Note HNO ID: [id number] Author: OTTO MATAMOROS RPh Service: ? Author Type: Pharmacist Type: Progress Notes Filed: 06/20/2025 11:56 Note Text: Rx placed on hold until patient enrolls in Cosentyx copay card and calls back to [facility] expressing interest in starting Cosentyx. Otto Matamoros, PharmD Clinical Pharmacist [facility] Pool: P [facility] Pool #: [id number] [facility] 05-18-2025 Note HNO ID: [id number] Author: ?, ?, ? Service: ? Author Type: ? Type: Progress Notes Filed: 05/25/2025 13:20 Note Text: [facility] received prescription(s) for Cosentyx from Ajit Torre's office. Benefits investigation was conducted, indicating that a prior authorization is required. PA was initiated and pending review. Plan Name: [facility] , opt 4 Email: [email or web address]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 were assessed and addressed if applicable. Will proceed with refill with no changes in therapy - patient progressing towards achieving therapeutic goals based on medication-specific laboratory parameters, disease state markers and outcomes. Office/provider notes have been reviewed prior to dispensing the medication. 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 Med/dose confirmed: Yes Supplies needed: Alcohol swabs, Sharps container Missed doses: No Estimated days supply on hand: 1 Next cycle/dose due: 05/08/25 Copay amount: 0 Delivery method: FedEx Signature required: No Delivery address: [address] [place] [id number] Delivery date: 05/12/25 Questions or concerns for the pharmacist?: No Did you have any side effects believed to be related to this medication, that resulted in hospitalization?: No Current Outpatient Medications on File Prior to Visit Medication Sig dihydroergotamine (DHE) 1 mg/mL injection Inject 1 mL intramuscular injection at headache onset. May repeat once per hour as needed up to 2 more doses. No more than 3 mL per 24 hours. leflunomide (ARAVA) 20 mg tablet TAKE 1 TABLET BY MOUTH EVERY DAY Filter [place] 19 x 1 1/2 ndle Use as directed with DHE. Draw up DHE solution with separate filter needle and then switch to smaller needle for injection. Syringe with Needle, Disp, (BD TUBERCULIN SYRINGE) 1 mL 27 x 1/2 Use with DHE injections omeprazole (PRILOSEC) 40 mg capsule Take 1 capsule by mouth once daily. ondansetron (ZOFRAN) 8 mg tablet Take 1 tablet by mouth every 8 hours as needed for nausea/vomiting. carisoprodol (SOMA) 350 mg tablet Take 1 tablet by mouth three times a day as needed for pain or muscle spasms. progesterone micronized (PROMETRIUM) 100 mg capsule Take 1 capsule by mouth daily at bedtime. fremanezumab-vfrm (AJOVY AUTOINJECTOR) 225 mg/1.5 mL auto-injector Inject 4.5 mL under the skin every 3 months. predniSONE (DELTASONE) 10 mg tablet Take 3 tablets by mouth daily for 1 week, then 2 tablets daily by mouth for 1 week , then 1 tablet by mouth daily for 1 week, then stop. Please take with food. buPROPion SR (WELLBUTRIN SR) 150 mg 12 hr tablet Take 1 tablet by mouth two times a day. rosuvastatin (CRESTOR) 5 mg tablet Take 1 tablet by mouth once daily. abatacept (ORENCIA CLICKJECT) 125 mg/mL auto-injector Inject 125mg (1 pen) subcutaneously one time a week. tirzepatide (MOUNJARO) 15 mg/0.5 mL pen injector Inject 15 mg subcutaneously one time a week. Diclofenac Potassium (CAMBIA) 50 mg pwpk Take 1 Packet by mouth as needed for migraine headache. Can repeat dose in 2 hours, no more than 2 doses per day, or 2 days per week Pztfxbkn6-Xkeuea3-Vxhbj therm. (VSL#3) 112.5 billion cell cap Take 2 capsules by mouth daily at bedtime. ondansetron (ZOFRAN) 4 mg tablet Take 1 tablet by mouth every 12 hours as needed for nausea/vomiting. clobetasol (TEMOVATE) 0.05 % ointment Apply 1 application to affected area two times a day. Magnesium Citrate 150mg (Pure Encapsulations) Take 4 capsules daily. riboflavin, vitamin B2, (VITAMIN B-2) 100 mg tab Take 4 tablets by mouth once daily. coenzyme Q10 (COQ-10) 100 mg cap capsule Take 1 capsule by mouth twice daily. vitamin D3-folic acid 5,000 unit- 1 mg tab Take 5,000 Units by mouth once daily. multivitamin tablet Take 1 tablet by mouth once daily. No current facility-administered medications on file prior to visit. [facility] SPECIALTY CLINICAL ASSESSMENT - INFLAMMATORY CONDITIONS V6: Assessment to use: Refill Date of influenza vaccination reminder: 08/12/2024 Date of most recent vaccination assessment: 08/12/2024 Treatment Plan Information: Orencia Clickject 125mg/mL Inject 125mg (1 pen) subcutaneously one time a week. 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 Tx Plan Start Date: 10/09/2024 Estimated Start Date Info: No information available Est. Estimated Treatment Duration: Until loss of efficacy and/or no longer tolerated. Indy Davidmaxine [facility] 04-07-2025 Telephone encounter Note Rx sent. Please let her know to have labs done. Thanks. [facility] 04-07-2025 Miscellaneous Notes Rx sent. Please let her know to have labs done. Thanks. Most recent Rheumatology visit: 03/15/2025 (with Ajit Torre) Last Refill: 11.29.2024 Last Bone Density on file: None on file Rheumatology Care Team: None on file Recent Office Visits - This Specialty 03/15/2025 Inflammatory arthritis Rheumatology Ajit Torre MD 01/12/2025 Inflammatory arthritis Rheumatology Ajit Torre MD 09/01/2024 Inflammatory arthritis Rheumatology Ajit Torre MD Upcoming Rheumatology Appointments - Next 365 Days Visit Type Date Time Department VIDEO SPEC EST 05/18/2025 10:00 AM [facility] VIDEO SPEC EST 09/28/2025 2:00 PM [facility] ALINE EST [facility] 01/16/[facility]26 [facility] PM [facility] CBC: Latest Ref Rng & Units 09/07/2024 01/06/2025 CBC WBC 3.70 - 11.00 k/uL 4.17 4.16 Hemoglobin 11.5 - 15.5 g/dL 14.4 14.9 Hematocrit 36.0 - 46.0 % 43.6 45.2 Platelet Count 150 - 400 k/uL 155 170 Abs Neut (ANC) 1.45 - 7.50 k/uL 2.27 Abs Lymph 1.00 - 4.00 k/uL 1.53 Vitamin D: Latest Ref Rng & Units 09/27/2022 01/06/2025 Vitamin D Vitamin D 25 Hydroxy 31.0 - 80.0 ng/mL 31.9 34.2 LFT: Latest Ref Rng & Units 09/07/2024 01/06/2025 CMP Sodium 136 - 144 mmol/L 140 Potassium 3.7 - 5.1 mmol/L 4.3 Chloride 98 - 107 mmol/L 102 CO2 22 - 30 mmol/L 23 Glucose 74 - 99 mg/dL 90 BUN 7 - 21 mg/dL 12 Creatinine 0.58 - 0.96 mg/dL 0.76 0.76 Calcium 8.5 - 10.2 mg/dL 10.2 AST 13 - 35 U/L 20 31 ALT 7 - 38 U/L 13 14 Alkaline Phosphatase 34 - 123 U/L 45 Hepatic Function: Creatinine: Latest Ref Rng & Units 09/07/2024 01/06/2025 Creatinine Creatinine 0.58 - 0.96 mg/dL 0.76 0.76 ESR/CRP: Latest Ref Rng & Units 07/03/2022 01/06/2025 ESR, WSR WSR 0 - 20 mm/hr 5 2 Latest Ref Rng & Units 07/03/2022 01/06/2025 CRP CRP <0.9 mg/dL <0.3 <0.3 Uric Acid: None on file in the last 6 months Open Standing (Multiple Instance) Lab Orders Remain Interval Expires Ordered Last Rel. CREATININE BLD [SQCRET] 04/0605/10/25 05/10/24 01/06/25 Auth. provider: Ajit Torre MD Assoc. diagnoses: Long-term use of immunosuppressant medication ALANINE AMINOTRANSFERASE / SGPT [SQALT] 04/0605/10/25 05/10/24 01/06/25 Auth. provider: Ajit Torre MD Assoc. diagnoses: Long-term use of immunosuppressant medication ASPARTATE AMINOTRANSFERASE/SGOT [SQAST] 04/0605/10/25 05/10/24 01/06/25 Auth. provider: Ajit Torre MD Assoc. diagnoses: Long-term use of immunosuppressant medication COMPLETE BLOOD COUNT [SQCBC] 04/0605/10/25 05/10/24 01/06/25 Auth. provider: Ajit Torre MD Assoc. diagnoses: Long-term use of immunosuppressant medication Open Future (Single Instance) Lab Orders Expected Expires Ordered COMPLETE BLOOD COUNT [SQCBC] 04/01/25 03/15/26 03/15/25 Auth. provider: Ajit Torre MD Assoc. diagnoses: Long-term use of immunosuppressant medication CREATININE BLD [SQCRET] 04/01/25 03/15/26 03/15/25 Auth. provider: Ajit Torre MD Assoc. diagnoses: Long-term use of immunosuppressant medication ALANINE AMINOTRANSFERASE / SGPT [SQALT] 04/01/25 03/15/26 03/15/25 Auth. provider: Ajit Torre MD Assoc. diagnoses: Long-term use of immunosuppressant medication ASPARTATE AMINOTRANSFERASE/SGOT [SQAST] 04/01/25 03/15/26 03/15/25 Auth. provider: Ajit Torre MD Assoc. diagnoses: Long-term use of immunosuppressant medication Pharmacist Managed Refill Encounter Name: Kira Adhikari Refill authorization request(s) received and reviewed under effective consult agreement. The patient consented to the pharmacy service and agreed to allow medications to be collaboratively managed by the pharmacist. The patient may decline or cancel the agreement at any time. Upon review, it was confirmed that an active patient-provider relationship exists, and the prescriber is a participating physician under the consult agreement. Last office visit in this department: 08/07/2022 Ajit Torre MD Last distance health visit in this department: 03/15/2025 Ajit Torre MD Next appointment in this department: 05/18/2025 Ajit Torre MD Requested Prescriptions Pending Prescriptions Disp Refills leflunomide (ARAVA) 20 mg tablet 90 tablet 0 Sig: TAKE 1 TABLET BY MOUTH EVERY DAY The medication(s) fall under category 3: Medications fail to meet 1 or more criteria (medication excluded from collaborative practice agreement) necessary for pharmacist approval, routed to provider for review. # of refills routed in this encounter: 1 # of refills approved in this encounter: 0 Zi Carranza RPh documented in this encounter [facility] 04-07-2025 Telephone encounter Note Most recent Rheumatology visit: 03/15/2025 (with Ajit Torre) Last Refill: 11.29.2024 Last Bone Density on file: None on file Rheumatology Care Team: None on file Recent Office Visits - This Specialty 03/15/2025 Inflammatory arthritis Rheumatology Ajit Torre MD 01/12/2025 Inflammatory arthritis Rheumatology Ajit Torre MD 09/01/2024 Inflammatory arthritis Rheumatology Ajit Torre MD Upcoming Rheumatology Appointments - Next 365 Days Visit Type Date Time Department VIDEO SPEC EST 05/18/2025 10:00 AM [facility] VIDEO SPEC EST 09/28/2025 2:00 PM [facility] ALINE EST [facility] 01/16/2026 1:20 PM [facility] CBC: Latest Ref Rng & Units 09/07/2024 01/06/2025 CBC WBC 3.70 - 11.00 k/uL 4.17 4.16 Hemoglobin 11.5 - 15.5 g/dL 14.4 14.9 Hematocrit 36.0 - 46.0 % 43.6 45.2 Platelet Count 150 - 400 k/uL 155 170 Abs Neut (ANC) 1.45 - 7.50 k/uL 2.27 Abs Lymph 1.00 - 4.00 k/uL 1.53 Vitamin D: Latest Ref Rng & Units 09/27/2022 01/06/2025 Vitamin D Vitamin D 25 Hydroxy 31.0 - 80.0 ng/mL 31.9 34.2 LFT: Latest Ref Rng & Units 09/07/2024 01/06/2025 CMP Sodium 136 - 144 mmol/L 140 Potassium 3.7 - 5.1 mmol/L 4.3 Chloride 98 - 107 mmol/L 102 CO2 22 - 30 mmol/L 23 Glucose 74 - 99 mg/dL 90 BUN 7 - 21 mg/dL 12 Creatinine 0.58 - 0.96 mg/dL 0.76 0.76 Calcium 8.5 - 10.2 mg/dL 10.2 AST 13 - 35 U/L 20 31 ALT 7 - 38 U/L 13 14 Alkaline Phosphatase 34 - 123 U/L 45 Hepatic Function: Creatinine: Latest Ref Rng & Units 09/07/2024 01/06/2025 Creatinine Creatinine 0.58 - 0.96 mg/dL 0.76 0.76 ESR/CRP: Latest Ref Rng & Units 07/03/2022 01/06/2025 ESR, WSR WSR 0 - 20 mm/hr 5 2 Latest Ref Rng & Units 07/03/2022 01/06/2025 CRP CRP <0.9 mg/dL <0.3 <0.3 Uric Acid: None on file in the last 6 months Open Standing (Multiple Instance) Lab Orders Remain Interval Expires Ordered Last Rel. CREATININE BLD [SQCRET] 04/0605/10/25 05/10/24 01/06/25 Auth. provider: Ajit Torre MD Assoc. diagnoses: Long-term use of immunosuppressant medication ALANINE AMINOTRANSFERASE / SGPT [SQALT] 04/0605/10/25 05/10/24 01/06/25 Auth. provider: Ajit Torre MD Assoc. diagnoses: Long-term use of immunosuppressant medication ASPARTATE AMINOTRANSFERASE/SGOT [SQAST] 04/0605/10/25 05/10/24 01/06/25 Auth. provider: Ajit Torre MD Assoc. diagnoses: Long-term use of immunosuppressant medication COMPLETE BLOOD COUNT [SQCBC] 04/0605/10/25 05/10/24 01/06/25 Auth. provider: Ajit Torre MD Assoc. diagnoses: Long-term use of immunosuppressant medication Open Future (Single Instance) Lab Orders Expected Expires Ordered COMPLETE BLOOD COUNT [SQCBC] 04/01/25 03/15/26 03/15/25 Auth. provider: Ajit Torre MD Assoc. diagnoses: Long-term use of immunosuppressant medication CREATININE BLD [SQCRET] 04/01/25 03/15/26 03/15/25 Auth. provider: Ajit Torre MD Assoc. diagnoses: Long-term use of immunosuppressant medication ALANINE AMINOTRANSFERASE / SGPT [SQALT] 04/01/25 03/15/26 03/15/25 Auth. provider: Ajit Torre MD Assoc. diagnoses: Long-term use of immunosuppressant medication ASPARTATE AMINOTRANSFERASE/SGOT [SQAST] 04/01/25 03/15/26 03/15/25 Auth. provider: Ajit Torre MD Assoc. diagnoses: Long-term use of immunosuppressant medication [facility] 04-06-2025 Telephone encounter Note Pharmacist Managed Refill Encounter Name: Kira Adhikari Refill authorization request(s) received and reviewed under effective consult agreement. The patient consented to the pharmacy service and agreed to allow medications to be collaboratively managed by the pharmacist. The patient may decline or cancel the agreement at any time. Upon review, it was confirmed that an active patient-provider relationship exists, and the prescriber is a participating physician under the consult agreement. Last office visit in this department: 08/07/2022 Ajit Torre MD Last distance health visit in this department: 03/15/2025 Ajit Torre MD Next appointment in this department: 05/18/2025 Ajit Torre MD Requested Prescriptions Pending Prescriptions Disp Refills leflunomide (ARAVA) 20 mg tablet 90 tablet 0 Sig: TAKE 1 TABLET BY MOUTH EVERY DAY The medication(s) fall under category 3: Medications fail to meet 1 or more criteria (medication excluded from collaborative practice agreement) necessary for pharmacist approval, routed to provider for review. # of refills routed in this encounter: 1 # of refills approved in this encounter: 0 Zi Carranza RPh [facility] 04-06-2025 Telephone encounter Note [facility] received erx's today for dihydroergotamine injection, filtered needles and syringe w/ needles and had a few questions. In regards to the dihydroergotamine, per Lexidrug the max patient should use in 24 hours is 3 mg. From the current directions, it seems patient would be able to use more than 3 mg per 24 hours as patient can repeat the cycle every 8 hours. Should we include in the directions to only use a max of 3 mg in a 24 hour period? The filtered needle gauge that we have available is 19g instead of the prescribed 20g (it is still 5 microns). Would it be ok to substitute the 19g size? For the syringes, we don't have a 1 ml syringe w/ needle that would work with the filtered needles. The closest we have is a 3ml 25g 1 syringe w/ needle. Would it be ok to substitute these? Please review above questions and advise. Thank you kindly, Elaine Tavares, Pharmacist [facility] [phone] (phone) [phone] (fax) [facility] 04-06-2025 Miscellaneous Notes [facility] received erx's today for dihydroergotamine injection, filtered needles and syringe w/ needles and had a few questions. In regards to the dihydroergotamine, per Lexidrug the max patient should use in 24 hours is 3 mg. From the current directions, it seems patient would be able to use more than 3 mg per 24 hours as patient can repeat the cycle every 8 hours. Should we include in the directions to only use a max of 3 mg in a 24 hour period? The filtered needle gauge that we have available is 19g instead of the prescribed 20g (it is still 5 microns). Would it be ok to substitute the 19g size? For the syringes, we don't have a 1 ml syringe w/ needle that would work with the filtered needles. The closest we have is a 3ml 25g 1 syringe w/ needle. Would it be ok to substitute these? Please review above questions and advise. Thank you kindly, Elaine Tavares, Pharmacist [facility] [phone] (phone) [phone] (fax) documented in this encounter [facility] 04-06-2025 Note HNO ID: [id number] Author: SNUIL OWEN, DO Service: ? Author Type: Physician Type: Progress Notes Filed: 04/06/2025 12:27 Note Text: Headache Center - Follow-up Visit ASSESSMENT: 39 year old female with history significant for migraine with aura, chronic migraine, PCOS, TMD, cervical disk herniation, neck pain, autoimmune arthritis, with variable cycles of high frequency episodic migraine and chronic migraine with contributions from occipital neuralgia and cervicogenic headache. PLAN: (Please see typed patient instructions for detailed instructions) ---> Acute Treatment: -Cambia helps. Generic diclofenac was not effective. -Trudhesa DHE ns not covered so we'll send injectable DHE for rescue. -Soma instead of Methocarbamol since it was more helpful in the past. ---> Preventive Treatment: -Continue Ajovy quarterly. She feels this has helped. -Restart Botox today in hopes of using with Ajovy for synergistic benefit, as well as using a more effective pattern with extra over the occipital nerves. -We discussed the next steps of changing Ajovy to Vyepti (to also more effectively address her significant brain fog complaints) or Qulipta. ---> Follow-up: 3 months for Botox. Last Visit: 12/30/24 Interval Headache Hx: Here to restart Botox. Headaches about the same. Interval Testing: n/a New Onabotulinum Toxin A (BotoxTM) for Migraine Indication: Chronic Intractable Migraine Referral Expiration: 07/11/2025 Number of moderate-severe migraine days/month: 30 (daily) Number of mild migraine days/month: 0 Number of headache free days/month: 0 (0 headache-free hours) Migraine severity: 1010 The patient has been assessed for disorders which could contribute to breathing or swallowing difficulty, and there is no contraindication with PREEMPT Botox. There is no documented allergic reaction/hypersensitivity to any botulinum toxin and there is no active infection at proposed injection site. HEADACHE SCORES: 07/21/2023 01/01/2024 04/05/2025 Headache Questions ID Migraine Screener: 3 (Positive) ER visits in the last year: 2 ER visits since last office visit: 0 0 Hospital stays in the last year: 0 Hospital stays since last office visit 0 0 Limited ADLs in the last month: 5 12 10 Days missed from work or school in the last month: 0 0 0 Days headache pain free in the last month: 25 3 5 Days per month with ALL of the following symptoms - decreased productivity, light sensitivity and nausea: 3 2 5 Initial improvement of headache after botox injection at last visit: Not applicable, I did not have a botox injection at my last visit Not applicable, I did not have a botox injection at my last visit PRN medication usage in the last month: 4 10 10 Patient impression of improvement since last visit: No change Minimally improved 01/01/2024 12/30/2024 04/05/2025 HIT-6 HIT-6 63 (Severe impact) 67 (Severe impact) 64 (Severe impact) 01/01/2024 12/30/2024 04/05/2025 LETICIA - 2/7 SCORES LETICIA-2 Score 0 2 0 03/29/2021 05/22/2021 Pain Disability Index PDI Score 45 22 01/01/2024 12/30/2024 04/05/2025 Migraine Specific QOL - Higher scores indicate better HRQL Role Function-Restrictive Transformed Score (range: 0-100) 62.86 0 40 Role Function-Preventive Transformed Score (range: 0-100) 65 45 55 Emotional Function Transformed Score (range: 0-100) 73.33 0 46.67 01/01/2024 12/30/2024 04/05/2025 PHQ-9 Score 1 9 2 BP 116/81 Pulse 84 Wt 59 kg (130 lb) LMP 03/06/2025 (Exact Date) BMI 21.63 kg/m? Patient name: Kira Adhikari : 1985 ALLERGIES Allergen Reactions Dilaudid [Hydromorp* Itching Fentanyl Itching Sulfa (Sulfonamide * Rash UNIVERSAL PROTOCOL / SAFETY CHECKLIST Procedure to be Performed: Botox Sign In: A Moment of CARE was completed. Appropriate PPE (Personal Protective Equipment) worn by all providers involved with the procedure. Special equipment not required. Patient/Surrogate Stated/Verified: Patient name, Date of , Relevant allergies, and The intended procedure Time Out: Relevant labs, photos, and/or imaging studies have been reviewed. Intended patient and procedure match the source document(s) (e.g. consent, HANDP, associated studies [imaging, pathology]) match the intended patient and procedure. Consent obtained and matches the intended procedure. Yes. Correct side/site has been marked and visible. Medications required for this procedure are verified. Fire risk assessed and is not applicable. Implants: are not applicable. Sign Out: Specimens are all correctly labeled and sent. All instruments, equipment, possible retained foreign bodies are accounted for. Yes. The post-procedure plan of care has been communicated to the patient or surrogate. UNIVERSAL PROTOCOL / SAFETY CHECKLIST Procedure: Onabotulinum toxin A for migraine Informed C (more content not included)... [facility] 04-06-2025 History of Present illness Narrative Images from the original note were not included. Headache Center - Follow-up Visit ASSESSMENT: 39 year old female with history significant for migraine with aura, chronic migraine, PCOS, TMD, cervical disk herniation, neck pain, autoimmune arthritis, with variable cycles of high frequency episodic migraine and chronic migraine with contributions from occipital neuralgia and cervicogenic headache. PLAN: (Please see typed patient instructions for detailed instructions) ---> Acute Treatment: -Cambia helps. Generic diclofenac was not effective. -Trudhesa DHE ns not covered so we'll send injectable DHE for rescue. -Soma instead of Methocarbamol since it was more helpful in the past. ---> Preventive Treatment: -Continue Ajovy quarterly. She feels this has helped. -Restart Botox today in hopes of using with Ajovy for synergistic benefit, as well as using a more effective pattern with extra over the occipital nerves. -We discussed the next steps of changing Mack to Vyepti (to also more effectively address her significant brain fog complaints) or Qulipta. ---> Follow-up: 3 months for Botox. Last Visit: 12/30/24 Interval Headache Hx: Here to restart Botox. Headaches about the same. Interval Testing: n/a New Onabotulinum Toxin A (BotoxTM) for Migraine Indication: Chronic Intractable Migraine Referral Expiration: 07/11/2025 Number of moderate-severe migraine days/month: 30 (daily) Number of mild migraine days/month: 0 Number of headache free days/month: 0 (0 headache-free hours) Migraine severity: 10/10 The patient has been assessed for disorders which could contribute to breathing or swallowing difficulty, and there is no contraindication with PREEMPT Botox. There is no documented allergic reaction/hypersensitivity to any botulinum toxin and there is no active infection at proposed injection site. HEADACHE SCORES: 07/21/2023 01/01/2024 04/05/2025 Headache Questions ID Migraine Screener: 3 (Positive) ER visits in the last year: 2 ER visits since last office visit: 0 0 Hospital stays in the last year: 0 Hospital stays since last office visit 0 0 Limited ADLs in the last month: 5 12 10 Days missed from work or school in the last month: 0 0 0 Days headache pain free in the last month: 25 3 5 Days per month with ALL of the following symptoms - decreased productivity, light sensitivity and nausea: 3 2 5 Initial improvement of headache after botox injection at last visit: Not applicable, I did not have a botox injection at my last visit Not applicable, I did not have a botox injection at my last visit PRN medication usage in the last month: 4 10 10 Patient impression of improvement since last visit: No change Minimally improved 01/01/2024 12/30/2024 04/05/2025 HIT-6 HIT-6 63 (Severe impact) 67 (Severe impact) 64 (Severe impact) 01/01/2024 12/30/2024 04/05/2025 LETICIA - 2/7 SCORES LETICIA-2 Score 0 2 0 03/29/2021 05/22/2021 Pain Disability Index PDI Score 45 22 01/01/2024 12/30/2024 04/05/2025 Migraine Specific QOL - Higher scores indicate better HRQL Role Function-Restrictive Transformed Score (range: 0-100) 62.86 0 40 Role Function-Preventive Transformed Score (range: 0-100) 65 45 55 Emotional Function Transformed Score (range: 0-100) 73.33 0 46.67 01/01/2024 12/30/2024 04/05/2025 PHQ-9 Score 1 9 2 BP 116/81 Pulse 84 Wt 59 kg (130 lb) LMP 03/06/2025 (Exact Date) BMI 21.63 kg/m Patient name: Kira Adhikari : 1985 ALLERGIES Allergen Reactions Dilaudid [Hydromorp* Itching Fentanyl Itching Sulfa (Sulfonamide * Rash UNIVERSAL PROTOCOL / SAFETY CHECKLIST Procedure to be Performed: Botox Sign In: A Moment of CARE was completed. Appropriate PPE (Personal Protective Equipment) worn by all providers involved with the procedure. Special equipment not required. Patient/Surrogate Stated/Verified: Patient name, Date of , Relevant allergies, and The intended procedure Time Out: Relevant labs, photos, and/or imaging studies have been reviewed. Intended patient and procedure match the source document(s) (e.g. consent, H&P, associated studies [imaging, pathology]) match the intended patient and procedure. Consent obtained and matches the intended procedure. Yes. Correct side/site has been marked and visible. Medications required for this procedure are verified. Fire risk assessed and is not applicable. Implants: are not applicable. Sign Out: Specimens are all correctly labeled and sent. All instruments, equipment, possible retained foreign bodies are accounted for. Yes. The post-procedure plan of care has been communicated to the patient or surrogate. UNIVERSAL PROTOCOL / SAFETY CHECKLIST Procedure: Onabotulinum toxin A for migraine Informed Consent Consent Obtained: Written Bailey Protocol A moment to CARE was completed SIGN IN Personnel directly involved with the procedure wore the appropriate PPE Special Equipment: N/A Patient/Surrogate Stated/Verified: Patient name, Date of , Relevant allergies and Intended procedure TIME OUT Relevant labs, photos, and/or imaging studies have been reviewed. Intended patient and procedure match source documents. Consent obtained and matches the intended procedure Correct side/site marked and visible. Medications required for procedure verified. No fire risk assessment and interventions applicable. No implant(s) inserted. SIGN OUT All instruments, equipment, possible retained foreign bodies accounted for. No post-procedure POC communication to the patient or surrogate applicable. Written Consent Obtained: Written LOT #: [id number] Expiration Date: Month: 10 Year: 2026 Injection Sites Left (Units) Left (Sites) Right (Units) Right (Sites) TOTAL (Units) Blasting Entryman 5 1 5 1 10 Procerus Units: 5 Sites: 1 5 Frontalis 10 2 10 2 20 Temporalis 25 5 25 5 50 Occipitalis 25 4 25 4 50 Cervical PSP 10 2 10 2 20 Trapezius 22.5 5 22.5 5 45 Total Units used: 200 Total Units wasted: 0 Prior Therapies Duration of Use Dose Side effect Other Therapies Nerve blocks Physical therapy Analgesic Diclofenac (Voltaren, Cataflam, Cambia) Cambia works well. Generic diclofenac is not effective Indomethacin (Indocin) no benefit Ketorolac (Toradol) no benefit Meperidine (Demerol) Morphine (Mellissa, Ms Contin) Oxycodone Oxycodone/Acetaminophen (Percocet) Anti-Anxiety Diazepam (Valium) Anti-Convulsant Divalproex sodium (Depakote) Pregabalin (Lyrica) Topiramate (Topamax, Trokendi XL, Qudexy) no benefit Anti-Depressant and Antipsychotic Bupropion (Wellbutrin) Duloxetine (Cymbalta) Nortriptyline (Pamelor, Aventyl) Antiemetics Metoclopramide Ondansetron zofran Anti-Migraine Lasmiditan (Reyvow) Rizatriptan (Maxalt) ineffective Sumatriptan (Imitrex, Sumavel) ineffective Blood Pressure Metoprolol (Lopressor,Toprol XL) Propranolol (Inderal) initial benefit MABs Erenumab (Aimovig) Fremanezumab (Ajovy) GEPANTS Ubrogepant (Ubrelvy) Rimegepant (Nurtec) no benefit Atogepant Botulinum Toxin Onabotulinum Toxin A (Botox), Onabotulimum Toxin A (Botox) 6 years loss of efficacy, done with gen neuro outside of center Muscle Relaxer Baclofen (Lioresal) ineffective Chlorzoxazone (Parafon Forte) Cyclobenzaprine (Flexeril) ineffective Metaxalone (Skelaxin) Methocarbamol (Robaxin) lost efficacy Supplements CoQ10 Magnesium Riboflavin Other Medications Cyproheptadine (Periactin) Dexamethasone (Decadron) Diphenhydramine (Benadryl) Methylprednisolone (Medrol) Prednisone Over the Counter Medications Acetaminophen (Tylenol) Acetaminophen/Aspirin/Caffeine (Excedrin, Goody s) Aspirin Ibuprofen (Advil, Motrin) Naproxen sodium (Aleve) Sunil Owen DO -------- PMH: 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 ondansetron (ZOFRAN) 8 mg tablet Take 1 tablet by mouth every 8 hours as needed for nausea/vomiting. carisoprodol (SOMA) 350 mg tablet Take 1 tablet by mouth three times a day as needed for pain or muscle spasms. progesterone micronized (PROMETRIUM) 100 mg capsule Take 1 capsule by mouth daily at bedtime. fremanezumab-vfrm (AJOVY AUTOINJECTOR) 225 mg/1.5 mL auto-injector Inject 4.5 mL under the skin every 3 months. dihydroergotamine (TRUDHESA) 0.725 mg/pump act. (4 mg/mL) nasal spray Prime with 4 pumps before use. 1 spray in each nostril at migraine onset. May repeat once in 1 hour if needed. No more than 2 doses/24 hours and 3 doses/week. A complete dose is 2 sprays: 1 spray in each nostril. predniSONE (DELTASONE) 10 mg tablet Take 3 tablets by mouth daily for 1 week, then 2 tablets daily by mouth for 1 week , then 1 tablet by mouth daily for 1 week, then stop. Please take with food. buPROPion SR (WELLBUTRIN SR) 150 mg 12 hr tablet Take 1 tablet by mouth two times a day. leflunomide (ARAVA) 20 mg tablet TAKE 1 TABLET BY MOUTH EVERY DAY rosuvastatin (CRESTOR) 5 mg tablet Take 1 tablet by mouth once daily. abatacept (ORENCIA CLICKJECT) 125 mg/mL auto-injector Inject 125mg (1 pen) subcutaneously one time a week. tirzepatide (MOUNJARO) 15 mg/0.5 mL pen injector Inject 15 mg subcutaneously one time a week. Diclofenac Potassium (CAMBIA) 50 mg pwpk Take 1 Packet by mouth as needed for migraine headache. Can repeat dose in 2 hours, no more than 2 doses per day, or 2 days per week Fksdvhgb8-Pdjyfm3-Dbaze therm. (VSL#3) 112.5 billion cell cap Take 2 capsules by mouth daily at bedtime. ondansetron (ZOFRAN) 4 mg tablet Take 1 tablet by mouth every 12 hours as needed for nausea/vomiting. clobetasol (TEMOVATE) 0.05 % ointment Apply 1 application to affected area two times a day. Magnesium Citrate 150mg (Pure Encapsulations) Take 4 capsules daily. riboflavin, vitamin B2, (VITAMIN B-2) 100 mg tab Take 4 tablets by mouth once daily. coenzyme Q10 (COQ-10) 100 mg cap capsule Take 1 capsule by mouth twice daily. vitamin D3-folic acid 5,000 unit- 1 mg tab Take 5,000 Units by mouth once daily. multivitamin tablet Take 1 tablet by mouth once daily. No current facility-administered medications for this visit. REVIEW OF SYSTEMS: Review of system : unchanged from the previous visit (sleep patterns, mood, energy, appetite, stress, exercising). Physical Examination: BP 116/81 Pulse 84 Wt 59 kg (130 lb) LMP 03/06/2025 (Exact Date) BMI 21.63 kg/m GEN: Alert. NAD. Normal affect. Cooperative. NECK/BACK: Suboccipital tenderness present. Paracervical and upper shoulder musculature/traps tenderness and hypertonicity present. NEUROLOGICAL: A+O x 3. Attentive. Thought process and content unremarkable. Follows commands appropriately. Speech fluent. Sunil Owen DO [facility] Department of Neurology [facility] [address] [place] [address] Level of service: Est level 3 (20-29 min). Time spent 25 min on the day of service, which included preparing to see the patient, [id number] patient care, completing clinical documentation, obtaining and/or reviewing separately obtained history, performing a medically appropriate examination, counseling and educating the patient/family/caregiver, ordering medications, tests, or procedures, and communicating with other HCPs (not separately reported). Medical Decision Making: Medical Decision Making Level: 1 - N/A cc: David Kilgore [address] [place] [id number] documented in this encounter [facility] 04-01-2025 Note HNO ID: [id number] Author: OTTO MATAMOROS [facility] Service: ? Author Type: ? Type: Progress Notes Filed: 04/06/2025 10:30 Note Text: [facility] Refill Assessment Medication(s): Orencia Patient's current medication list and adherence status to current therapy were reviewed by Specialty Pharmacy clinical pharmacist to identify any new drug interactions or non-compliance to therapy. Therapy continues to be appropriate for disease, patient response, and medical condition. Verification of therapeutic benefit and effectiveness with current therapy was completed. Adverse events, barriers in adherence, and side effects were assessed and addressed if applicable. Will proceed with refill with no changes in therapy - patient progressing towards achieving therapeutic goals based on medication-specific laboratory parameters, disease state markers and outcomes. Office/provider notes have been reviewed prior to dispensing the medication. Otto Matamoros, PharmD Clinical Pharmacist [facility] Pool: P [facility] Pool #: [id number] 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 Med/dose confirmed: Yes Supplies needed: No supplies needed Missed doses: No Estimated days supply on hand: 0 Next cycle/dose due: 04/10/25 Copay amount: 0 Payment confirmed: Yes Delivery method: FedEx Signature required: Waived on patient request Delivery address: [address] [place] [id number] Delivery date: 04/08/25 Questions or concerns for the pharmacist?: No Did you have any side effects believed to be related to this medication, that resulted in hospitalization?: No Current Outpatient Medications on File Prior to Visit Medication Sig omeprazole (PRILOSEC) 40 mg capsule Take 1 capsule by mouth once daily. ondansetron (ZOFRAN) 8 mg tablet Take 1 tablet by mouth every 8 hours as needed for nausea/vomiting. carisoprodol (SOMA) 350 mg tablet Take 1 tablet by mouth three times a day as needed for pain or muscle spasms. progesterone micronized (PROMETRIUM) 100 mg capsule Take 1 capsule by mouth daily at bedtime. fremanezumab-vfrm (knowNormalOVY AUTOINJECTOR) 225 mg/1.5 mL auto-injector Inject 4.5 mL under the skin every 3 months. dihydroergotamine (TRUDHESA) 0.725 mg/pump act. (4 mg/mL) nasal spray Prime with 4 pumps before use. 1 spray in each nostril at migraine onset. May repeat once in 1 hour if needed. No more than 2 doses/24 hours and 3 doses/week. A complete dose is 2 sprays: 1 spray in each nostril. predniSONE (DELTASONE) 10 mg tablet Take 3 tablets by mouth daily for 1 week, then 2 tablets daily by mouth for 1 week , then 1 tablet by mouth daily for 1 week, then stop. Please take with food. buPROPion SR (WELLBUTRIN SR) 150 mg 12 hr tablet Take 1 tablet by mouth two times a day. leflunomide (ARAVA) 20 mg tablet TAKE 1 TABLET BY MOUTH EVERY DAY rosuvastatin (CRESTOR) 5 mg tablet Take 1 tablet by mouth once daily. abatacept (ORENCIA CLICKJECT) 125 mg/mL auto-injector Inject 125mg (1 pen) subcutaneously one time a week. tirzepatide (MOUNJARO) 15 mg/0.5 mL pen injector Inject 15 mg subcutaneously one time a week. Diclofenac Potassium (CAMBIA) 50 mg pwpk Take 1 Packet by mouth as needed for migraine headache. Can repeat dose in 2 hours, no more than 2 doses per day, or 2 days per week Ealuayvq2-Fgsngy1-Mrgjk therm. (VSL#3) 112.5 billion cell cap Take 2 capsules by mouth daily at bedtime. ondansetron (ZOFRAN) 4 mg tablet Take 1 tablet by mouth every 12 hours as needed for nausea/vomiting. clobetasol (TEMOVATE) 0.05 % ointment Apply 1 application to affected area two times a day. Magnesium Citrate 150mg (Pure Encapsulations) Take 4 capsules daily. riboflavin, vitamin B2, (VITAMIN B-2) 100 mg tab Take 4 tablets by mouth once daily. coenzyme Q10 (COQ-10) 100 mg cap capsule Take 1 capsule by mouth twice daily. vitamin D3-folic acid 5,000 unit- 1 mg tab Take 5,000 Units by mouth once daily. multivitamin tablet Take 1 tablet by mouth once daily. No current facility-administered medications on file prior to visit. [facility] SPECIALTY CLINICAL ASSESSMENT - INFLAMMATORY CONDITIONS V6: Ivent complete: No Assessment to use: Refill Assessment of injection issues: Yes Infection screening, including annual TB assessment when applicable to medication: Yes Current medication list (including drug interaction assessment): Yes Experience of adverse reactions to the medication: Yes Date of influenza vaccination reminder: 08/12/2024 Date of most recent vaccination assessment: 08/12/2024 Treatment Plan Information: Orencia Clickject 125mg/mL Inject 125mg (1 pen) subcutaneously one time a week. 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 Tx Plan Start Date: 10/09/2024 Estimated Start Date Info: No information available Est. Estimated Treatment Duration: Until loss of efficacy and/or no longer tolerated. (more content not included)... [facility] 03-24-2025 Note HNO ID: [id number] Author: ?, ?, ? Service: ? Author Type: ? Type: Progress Notes Filed: 03/24/2025 13:42 Note Text: [facility] has been servicing patient for cycles/refills of Orencia ClickJect. Benefits investigation was conducted, indicating that a prior authorization renewal is required. Prior authorization was initiated via email and is pending review. Plan Name: [facility] Phone/ , opt 4 / [phone] Email: [email or web address] [place] Severino [facility] Specialty Pharmacy [facility] 03-24-2025 Note HNO ID: [id number] Author: ?, ?, ? Service: ? Author Type: ? Type: Progress Notes Filed: 04/01/2025 12:27 Note Text: [facility] has been servicing patient for cycles/refills of Orencia ClickJect. Plan Name: [facility] , opt 4 Email: [email or web address] [place] reference number: [id number] Approval Dates: 03/31/25 - 06/29/25 [facility] specialty will continue to service order accordingly. Indy Severino [facility] 03-16-2025 Miscellaneous Notes [facility] received prescription(s) for omeprazole from Dr. Mccallum's office. Unfortunately, we do not carry or service non-specialty medications. If you would like the medication to be mailed to the patient by a [facility], please consider sending the Rx to [facility] (phone [phone]). Otherwise, please send the Rx to a [facility] outpatient pharmacy or patient's preferred pharmacy. Thanks, Judy Barcenas, PharmD, [facility] PGY-1 Community-Based [employer]ight [employer] Generator Operator (Specialty) P: [phone] F: [phone] documented in this encounter [facility] 03-16-2025 Telephone encounter Note [facility] received prescription(s) for omeprazole from Dr. Mccallum's office. Unfortunately, we do not carry or service non-specialty medications. If you would like the medication to be mailed to the patient by a [facility], please consider sending the Rx to [facility] (phone [phone]). Otherwise, please send the Rx to a [facility] outpatient pharmacy or patient's preferred pharmacy. Judy Dye PharmD, [facility] PGY-1 Community-Based Straight To[employer] Generator Operator (Specialty) P: [phone] F: [phone] [facility] 03-16-2025 Note Formatting of this n ote might be different from the original. The patient received a copy of EGD discharge instructions that contain information for how to contact the physician who performed the procedure and when to seek medical care. [facility] 03-16-2025 Miscellaneous Notes The patient received a copy of EGD discharge instructions that contain information for how to contact the physician who performed the procedure and when to seek medical care. documented in this encounter [facility] 03-16-2025 History and physical note PROCEDURAL SEDATION HISTORY AND PHYSICAL EXAM SERVICE DATE: 03/16/2025 SERVICE TIME: 7:29 AM Subjective HPI: This is a 39 year old female who presents with reflux and dysphagia and globus symptoms PAST ANESTHESIA HISTORY: No history of adverse event PAST MEDICAL HISTORY Diagnosis Date 2010 History of abnormal cervical Pap smear hyperlipidemia slight elevation / no meds Inflammatory arthritis 12/2020 Left arm pain Liver disease elevated LFT's Migraine with aura Neck pain Oral herpes PCOS (polycystic ovarian syndrome) 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 Past Week Yes progesterone micronized (PROMETRIUM) 100 mg capsule Take 1 capsule by mouth daily at bedtime. 03/15/2025 Yes valACYclovir (VALTREX) 1 gram tablet Take 1 tablet by mouth once daily. 03/15/2025 Yes buPROPion SR (WELLBUTRIN SR) 150 mg 12 hr tablet Take 1 tablet by mouth two times a day. 03/15/2025 Yes leflunomide (ARAVA) 20 mg tablet TAKE 1 TABLET BY MOUTH EVERY DAY 03/15/2025 Yes abatacept (ORENCIA CLICKJECT) 125 mg/mL auto-injector Inject 125mg (1 pen) subcutaneously one time a week. Past Week Yes [id number]-Nubsrq8-Obypz therm. (VSL#3) 112.5 billion cell cap Take 2 capsules by mouth daily at bedtime. 03/15/2025 Yes Magnesium Citrate 150mg (Pure Encapsulations) Take 4 capsules daily. 03/15/2025 Yes riboflavin, vitamin B2, (VITAMIN B-2) 100 mg tab Take 4 tablets by mouth once daily. 03/15/2025 Yes vitamin D3-folic acid 5,000 unit- 1 mg tab Take 5,000 Units by mouth once daily. 03/15/2025 Yes multivitamin tablet Take 1 tablet by mouth once daily. 03/15/2025 Yes ondansetron (ZOFRAN) 8 mg tablet Take 1 tablet by mouth every 8 hours as needed for nausea/vomiting. Unknown fremanezumab-vfrm (AJOVY AUTOINJECTOR) 225 mg/1.5 mL auto-injector Inject 4.5 mL under the skin every 3 months. Unknown dihydroergotamine (TRUDHESA) 0.725 mg/pump act. (4 mg/mL) nasal spray Prime with 4 pumps before use. 1 spray in each nostril at migraine onset. May repeat once in 1 hour if needed. No more than 2 doses/24 hours and 3 doses/week. A complete dose is 2 sprays: 1 spray in each nostril. Unknown predniSONE (DELTASONE) 10 mg tablet Take 3 tablets by mouth daily for 1 week, then 2 tablets daily by mouth for 1 week , then 1 tablet by mouth daily for 1 week, then stop. Please take with food. Unknown rosuvastatin (CRESTOR) 5 mg tablet Take 1 tablet by mouth once daily. Unknown tirzepatide (MOUNJARO) 15 mg/0.5 mL pen injector Inject 15 mg subcutaneously one time a week. Unknown Diclofenac Potassium (CAMBIA) 50 mg pwpk Take 1 Packet by mouth as needed for migraine headache. Can repeat dose in 2 hours, no more than 2 doses per day, or 2 days per week Unknown ondansetron (ZOFRAN) 4 mg tablet Take 1 tablet by mouth every 12 hours as needed for nausea/vomiting. Unknown clobetasol (TEMOVATE) 0.05 % ointment Apply 1 application to affected area two times a day. coenzyme Q10 (COQ-10) 100 mg cap capsule Take 1 capsule by mouth twice daily. Unknown ALLERGIES Allergen Reactions Dilaudid [Hydromorp* Itching Fentanyl Itching Sulfa (Sulfonamide * Rash Objective PHYSICAL EXAM: The remainder of the physical exam is noncontributory. AIRWAY: Airway Visualization of Uvula: Yes Mouth opening greater than 2 fingerbreadths: Yes Neck Full Range of Motion: Yes LUNGS: Lungs clear to auscultation CARDIAC: Regular rhythm,Regular rate Assessment/Plan ASA Class: ASA Class: Patient with mild systemic disease * Medication and Non-Pharmacologic VTE Prophylaxis/Anticoagulants VTE Prophylaxis: VTE prophylaxis appropriate Provisional Diagnosis/Treatment Plan: EGD for Dysphagia Sedation Goal: Moderate SIGNATURE: Portillo Mccallum MD PATIENT NAME: Kira Adhikari DATE: March 16, 2025 TIME: 7:29 AM [facility] 03-16-2025 History and physical note PROCEDURAL SEDATION HISTORY AND PHYSICAL EXAM SERVICE DATE: 03/16/2025 SERVICE TIME: 7:29 AM Subjective HPI: This is a 39 year old female who presents with reflux and dysphagia and globus symptoms 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 Past Week Yes progesterone micronized (PROMETRIUM) 100 mg capsule Take 1 capsule by mouth daily at bedtime. 03/15/2025 Yes valACYclovir (VALTREX) 1 gram tablet Take 1 tablet by mouth once daily. 03/15/2025 Yes buPROPion SR (WELLBUTRIN SR) 150 mg 12 hr tablet Take 1 tablet by mouth two times a day. 03/15/2025 Yes leflunomide (ARAVA) 20 mg tablet TAKE 1 TABLET BY MOUTH EVERY DAY 03/15/2025 Yes abatacept (ORENCIA CLICKJECT) 125 mg/mL auto-injector Inject 125mg (1 pen) subcutaneously one time a week. Past Week Yes Jcxsvwvm1-Wvpqrj7-Mnksz therm. (VSL#3) 112.5 billion cell cap Take 2 capsules by mouth daily at bedtime. 03/15/2025 Yes Magnesium Citrate 150mg (Pure Encapsulations) Take 4 capsules daily. 03/15/2025 Yes riboflavin, vitamin B2, (VITAMIN B-2) 100 mg tab Take 4 tablets by mouth once daily. 03/15/2025 Yes vitamin D3-folic acid 5,000 unit- 1 mg tab Take 5,000 Units by mouth once daily. 03/15/2025 Yes multivitamin tablet Take 1 tablet by mouth once daily. 03/15/2025 Yes ondansetron (ZOFRAN) 8 mg tablet Take 1 tablet by mouth every 8 hours as needed for nausea/vomiting. Unknown fremanezumab-vfrm (AJOVY AUTOINJECTOR) 225 mg/1.5 mL auto-injector Inject 4.5 mL under the skin every 3 months. Unknown dihydroergotamine (TRUDHESA) 0.725 mg/pump act. (4 mg/mL) nasal spray Prime with 4 pumps before use. 1 spray in each nostril at migraine onset. May repeat once in 1 hour if needed. No more than 2 doses/24 hours and 3 doses/week. A complete dose is 2 sprays: 1 spray in each nostril. Unknown predniSONE (DELTASONE) 10 mg tablet Take 3 tablets by mouth daily for 1 week, then 2 tablets daily by mouth for 1 week , then 1 tablet by mouth daily for 1 week, then stop. Please take with food. Unknown rosuvastatin (CRESTOR) 5 mg tablet Take 1 tablet by mouth once daily. Unknown tirzepatide (MOUNJARO) 15 mg/0.5 mL pen injector Inject 15 mg subcutaneously one time a week. Unknown Diclofenac Potassium (CAMBIA) 50 mg pwpk Take 1 Packet by mouth as needed for migraine headache. Can repeat dose in 2 hours, no more than 2 doses per day, or 2 days per week Unknown ondansetron (ZOFRAN) 4 mg tablet Take 1 tablet by mouth every 12 hours as needed for nausea/vomiting. Unknown clobetasol (TEMOVATE) 0.05 % ointment Apply 1 application to affected area two times a day. coenzyme Q10 (COQ-10) 100 mg cap capsule Take 1 capsule by mouth twice daily. Unknown ALLERGIES Allergen Reactions Dilaudid [Hydromorp* Itching Fentanyl Itching Sulfa (Sulfonamide * Rash Objective PHYSICAL EXAM: The remainder of the physical exam is noncontributory. AIRWAY: Airway Visualization of Uvula: Yes Mouth opening greater than 2 fingerbreadths: Yes Neck Full Range of Motion: Yes LUNGS: Lungs clear to auscultation CARDIAC: Regular rhythm,Regular rate Assessment/Plan ASA Class: ASA Class: Patient with mild systemic disease * Medication and Non-Pharmacologic VTE Prophylaxis/Anticoagulants VTE Prophylaxis: VTE prophylaxis appropriate Provisional Diagnosis/Treatment Plan: EGD for Dysphagia Sedation Goal: Moderate SIGNATURE: Portillo Mccallum MD PATIENT NAME: Kira Adhikari DATE: March 16, 2025 TIME: 7:29 AM documented in this encounter [facility] 03-15-2025 Note HNO ID: [id number] Author: AJIT TORRE MD Service: ? Author Type: Physician Type: Progress Notes Filed: 03/15/2025 14:42 Note Text: On 03/15/2025, I had the pleasure of evaluating Kira Adhikari in a follow-up [facility] appointment for inflammatory arthritis. This Team Access Model visit is a virtual encounter utilizing both video and audio components. It required patient-provider interaction for the medical decision making as documented below. My name and active licensure have been communicated. The patient's identity and physical location were verified at the time of this visit. Either the patient or their legal care support representative has been informed of the risks and benefits of -- and alternatives to -- treatment through a remote evaluation and consents to proceed with the evaluation remotely. HPI: To review, Kira Adhikari is a 39 year old female - Hx chronic migraines involving the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 pharmacist?: No Did you have any side effects believed to be related to this medication, that resulted in hospitalization?: No Current Outpatient Medications on File Prior to Visit Medication Sig ondansetron (ZOFRAN) 8 mg tablet Take 1 tablet by mouth every 8 hours as needed for nausea/vomiting. nitrofurantoin monohydrate and macrocrystal (MACROBID) 100 mg capsule Take 1 capsule by mouth two times a day for 7 days. ciprofloxacin HCl (CIPRO) 500 mg tablet Take 1 tablet by mouth two times a day for 14 days. carisoprodol (SOMA) 350 mg tablet Take 1 tablet by mouth three times a day as needed for pain or muscle spasms. progesterone micronized (PROMETRIUM) 100 mg capsule Take 1 capsule by mouth daily at bedtime. fremanezumab-vfrm (knowNormalOVLobera Cigars AUTOINJECTOR) 225 mg/1.5 mL auto-injector Inject 4.5 mL under the skin every 3 months. dihydroergotamine (TRUDHESA) 0.725 mg/pump act. (4 mg/mL) nasal spray Prime with 4 pumps before use. 1 spray in each nostril at migraine onset. May repeat once in 1 hour if needed. No more than 2 doses/24 hours and 3 doses/week. A complete dose is 2 sprays: 1 spray in each nostril. predniSONE (DELTASONE) 10 mg tablet Take 3 tablets by mouth daily for 1 week, then 2 tablets daily by mouth for 1 week , then 1 tablet by mouth daily for 1 week, then stop. Please take with food. valACYclovir (VALTREX) 1 gram tablet Take 1 tablet by mouth once daily. buPROPion SR (WELLBUTRIN SR) 150 mg 12 hr tablet Take 1 tablet by mouth two times a day. leflunomide (ARAVA) 20 mg tablet TAKE 1 TABLET BY MOUTH EVERY DAY rosuvastatin (CRESTOR) 5 mg tablet Take 1 tablet by mouth once daily. abatacept (ORENCIA CLICKJECT) 125 mg/mL auto-injector Inject 125mg (1 pen) subcutaneously one time a week. tirzepatide (MOUNJARO) 15 mg/0.5 mL pen injector Inject 15 mg subcutaneously one time a week. Diclofenac Potassium (CAMBIA) 50 mg pwpk Take 1 Packet by mouth as needed for migraine headache. Can repeat dose in 2 hours, no more than 2 doses per day, or 2 days per week [id number]-Kmsuuj6-Qlkby therm. (VSL#3) 112.5 billion cell cap Take 2 capsules by mouth daily at bedtime. ondansetron (ZOFRAN) 4 mg tablet Take 1 tablet by mouth every 12 hours as needed for nausea/vomiting. clobetasol (TEMOVATE) 0.05 % ointment Apply 1 application to affected area two times a day. Magnesium Citrate 150mg (Pure Encapsulations) Take 4 capsules daily. riboflavin, vitamin B2, (VITAMIN B-2) 100 mg tab Take 4 tablets by mouth once daily. coenzyme Q10 (COQ-10) 100 mg cap capsule Take 1 capsule by mouth twice daily. vitamin D3-folic acid 5,000 unit- 1 mg tab Take 5,000 Units by mouth once daily. multivitamin tablet Take 1 tablet by mouth once daily. No current facility-administered medications on file prior to visit. [facility] RX SPECIALTY CLINICAL ASSESSMENT - INFLAMMATORY CONDITIONS V6: Assessment to use: Refill Date of influenza vaccination reminder: 08/12/2024 Date of most recent vaccination assessment: 08/12/2024 Treatment Plan Information: Orencia Clickject 125mg/mL Inject 125mg (1 pen) subcutaneously one time a week. 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 Tx Plan Start Date: 10/09/2024 Estimated Start Date Info: No information available Est. Estimated Treatment Duration: Until loss of efficacy and/or no longer tolerated. Indy Severino [facility] 02-25-2025 Telephone encounter Note The following approved medication requests have been transmitted electronically. Requested Prescriptions Signed Prescriptions Disp Refills ondansetron (ZOFRAN) 8 mg tablet 20 tablet 1 Sig: Take 1 tablet by mouth every 8 hours as needed for nausea/vomiting. Authorizing Provider: MAR HARVEY nitrofurantoin monohydrate and macrocrystal (MACROBID) 100 mg capsule 14 capsule 0 Sig: Take 1 capsule by mouth two times a day for 7 days. Authorizing Provider: MAR HARVEY azithromycin (ZITHROMAX Z-CRYSTAL) 250 mg tablet 6 tablet 0 Sig: Take 2 tablets day one, then, 1 tablet daily until gone. Authorizing Provider: MAR HARVEY ciprofloxacin HCl (CIPRO) 500 mg tablet 28 tablet 0 Sig: Take 1 tablet by mouth two times a day for 14 days. Authorizing Provider: MAR HARVEY APRN.CNP [facility] 02-25-2025 Miscellaneous Notes The following approved medication requests have been transmitted electronically. Requested Prescriptions Signed Prescriptions Disp Refills ondansetron (ZOFRAN) 8 mg tablet 20 tablet 1 Sig: Take 1 tablet by mouth every 8 hours as needed for nausea/vomiting. Authorizing Provider: MAR HARVEY nitrofurantoin monohydrate and macrocrystal (MACROBID) 100 mg capsule 14 capsule 0 Sig: Take 1 capsule by mouth two times a day for 7 days. Authorizing Provider: MAR HARVEY azithromycin (ZITHROMAX Z-CRYSTAL) 250 mg tablet 6 tablet 0 Sig: Take 2 tablets day one, then, 1 tablet daily until gone. Authorizing Provider: MAR HARVEY ciprofloxacin HCl (CIPRO) 500 mg tablet 28 tablet 0 Sig: Take 1 tablet by mouth two times a day for 14 days. Authorizing Provider: MAR HARVEY APRN.MILLED RICE BROKER documented in this encounter [facility] 02-24-2025 Telephone encounter Note Physician: Call from patient requesting refill. Please E-Scribe Last OV: 12/30/2024 with Owen Future OV: 04/06/2025 with Owen Requested Prescriptions Pending Prescriptions Disp Refills carisoprodol (SOMA) 350 mg tablet 60 tablet 5 Sig: Take 1 tablet by mouth three times a day as needed for up to 30 days. FOR PAIN OR MUSCLE SPASMS. Pharmacy Name: [facility] 02-24-2025 Miscellaneous Notes Physician: Owen Call from patient requesting refill. Please E-Scribe Last OV: 12/30/2024 with Owen Future OV: 04/06/2025 with Owen Requested Prescriptions Pending Prescriptions Disp Refills carisoprodol (SOMA) 350 mg tablet 60 tablet 5 Sig: Take 1 tablet by mouth three times a day as needed for up to 30 days. FOR PAIN OR MUSCLE SPASMS. Pharmacy Name: [facility] documented in this encounter [facility] 02-22-2025 Note HNO ID: [id number] Author: BEATRIZ MELISSA PT Service: ? Author Type: Physical Therapist Type: Progress Notes Filed: 02/22/2025 13:09 Note Text: Episode Visit Count: 10 Therapist That Will Accept/Oversee The Plan Of Care: Beatriz Shin Start of Care Date: 09/07/24 Onset Date: 12/01/23 REHABILITATION AND SPORTS THERAPY PHYSICAL THERAPY PROGRESS REPORT PLAN OF CARE UPDATE: Assessment: Kira Adhikari demonstrates moderate improvement in physical activities and recreational activities. The patient has progressed toward goals. Patient continues to present with impairments in ADL's, overall function, strength, symptom management, and tissue tenderness that interfere with heavy exertion, lifting, physical activities, recreational activities, working, jumping, squatting . Current prognosis is Good due to: current objective clinical presentation, good overall health status, positive past response to therapy, within-session changes, good support system/ coping skills . The patient will benefit from continued skilled therapy services to meet the updated goals for this plan of care as noted below. Goals updated on 02/22/2025. Goals for Episode of Care: established 09/07/24 Independent in a Home Exercise Program. Met Patient will decrease pain rating by 2 points to meet minimal clinical important difference for numeric pain rating scale. Partially met Sleep throughout the night without pain/symptoms. Not met Maintain proper sitting posture throughout the session to allow for decreased pain and symptoms. Progressing Patient will increase strength of BUE and cervical mm to 5/5 to allow for improve ability to maintain proper posture, improve mechanics, and decrease pain. Progressing Planned Interventions, Frequency, and Duration: 1x/week, 8 weeks Total Number of Visits Planned: 8 Patient to be seen for Therapeutic exercise (16541), Neuromuscular re-education (36633), Manual therapy (45389), Therapeutic activities (68036), Self-detention management (98628), Patient/Family/Caregiver Education, Body Mechanics Training PLAN FOR NEXT VISIT: SUBJECTIVE: A lot of tightness remains in the hip flexors and B buttocks'. She is able to push her exercises more for neck/shoulders without flares, back to jogging as well. Functional Limitations: heavy exertion, lifting, physical activities, recreational activities, working, jumping, squatting Pain: Pain Pain Level: 4 Pain Location: Neck, Low Back/Lumbar Spine- Midline Description: Aching, Sore, Tightness Frequency: Continuous PROMIS Scales 02/14/2025 01/17/2025 01/12/2025 Higher is Better Phys Func - T Score 42 (mild dysfunction) 41 (mild dysfunction) Phys Func - Percentile 21 18 Self-Eff Symptom - T Score 42 (Average) 41 (Average) Self-Eff Symptom - Percentile 21 18 01/12/2025 10/05/2024 09/01/2024 Lower is Better Pain Interference - T Score 67 (moderate) 64 (moderate) 65 (moderate) Pain Interference - Percentile 4 8 7 T-scores: mean of general population = 50. 5 points is clinically meaningfully difference Percentiles provide an indication of how the patient's score ranks in relation to the general population. Higher percentile rankings indicate better function/quality of life. 50th percentile is the average of the general population and indicates half of respondents had a worse score. OBJECTIVE MEASURES WITH LEVEL OF FUNCTION: UE and Cervical Strength R UE Strength: 4/5 grossly periscapular L UE Strength: 4/5 grossly periscapular Special Tests - Hip and Spine Hip and Spine Special Tests: SLR Test SLR Test: Right Positive, Left Positive TREATMENT: Therapeutic Exercise: 1: *Supine sciatic nerve glides 3x10, bump on bump off 2: *Prone quad stretch 3x30 sec/side Skilled Intervention: Patient was educated in proper exercise technique and purpose for exercises. Skilled judgment was used in selection of appropriate interventions. Provided written instruction for home exercise program to facilitate proper performance and compliance. Correct performance of therapeutic exercises was facilitated with verbal, visual, and tactile cuing. Manual Therapy: 1: STM, CFM to R upper trap and B Suboccipitals with push to tolerance Dry Needling: (1) 40 and 50 mm needle to B C3 and C7 paraspinals in clock techniques plus TENS- see perameters below Skilled Intervention: Manual skills to improve joint mobility, ROM, and decrease pain. Utilized anatomy knowledge of the therapist, and assessment of patient's response to intervention. Modalities: Body Region Treated - E-Stim Attended/TENS: C3 and C7 Patient Position: Prone Current: 10 Hz Channels: 1-2, 3-4 Intensity: Ch 1-2 3.5 V, Ch 3-4 2.0 V Minutes: 12 Skilled Intervention: Proper administration and selection of modality based on clinical presentation, deficits, and needs. Patient response monitored throughout treatment. Billing Therapeutic Exercise Treatment (more content not included)... [facility] 02-22-2025 History of Present illness Narrative Images from the original note were not included. Episode Visit Count: 10 Therapist That Will Accept/Oversee The Plan Of Care: Beatriz Melissa Start of Care Date: 09/07/24 Onset Date: 12/01/23 REHABILITATION AND SPORTS THERAPY PHYSICAL THERAPY PROGRESS REPORT PLAN OF CARE UPDATE: Assessment: Kira Adhikari demonstrates moderate improvement in physical activities and recreational activities. The patient has progressed toward goals. Patient continues to present with impairments in ADL's, overall function, strength, symptom management, and tissue tenderness that interfere with heavy exertion, lifting, physical activities, recreational activities, working, jumping, squatting . Current prognosis is Good due to: current objective clinical presentation, good overall health status, positive past response to therapy, within-session changes, good support system/ coping skills . The patient will benefit from continued skilled therapy services to meet the updated goals for this plan of care as noted below. Goals updated on 02/22/2025. Goals for Episode of Care: established 09/07/24 Independent in a Home Exercise Program. Met Patient will decrease pain rating by 2 points to meet minimal clinical important difference for numeric pain rating scale. Partially met Sleep throughout the night without pain/symptoms. Not met Maintain proper sitting posture throughout the session to allow for decreased pain and symptoms. Progressing Patient will increase strength of BUE and cervical mm to 5/5 to allow for improve ability to maintain proper posture, improve mechanics, and decrease pain. Progressing Planned Interventions, Frequency, and Duration: 1x/week, 8 weeks Total Number of Visits Planned: 8 Patient to be seen for Therapeutic exercise (47415), Neuromuscular re-education (93763), Manual therapy (21752), Therapeutic activities (81069), Self-detention management (95208), Patient/Family/Caregiver Education, Body Mechanics Training PLAN FOR NEXT VISIT: SUBJECTIVE: A lot of tightness remains in the hip flexors and B buttocks'. She is able to push her exercises more for neck/shoulders without flares, back to jogging as well. Functional Limitations: heavy exertion, lifting, physical activities, recreational activities, working, jumping, squatting Pain: Pain Pain Level: 4 Pain Location: Neck, Low Back/Lumbar Spine- Midline Description: Aching, Sore, Tightness Frequency: Continuous PROMIS Scales 02/14/2025 01/17/2025 01/12/2025 Higher is Better Phys Func - T Score 42 (mild dysfunction) 41 (mild dysfunction) Phys Func - Percentile 21 18 Self-Eff Symptom - T Score 42 (Average) 41 (Average) Self-Eff Symptom - Percentile 21 18 01/12/2025 10/05/2024 09/01/2024 Lower is Better Pain Interference - T Score 67 (moderate) 64 (moderate) 65 (moderate) Pain Interference - Percentile 4 8 7 T-scores: mean of general population = 50. 5 points is clinically meaningfully difference Percentiles provide an indication of how the patient's score ranks in relation to the general population. Higher percentile rankings indicate better function/quality of life. 50th percentile is the average of the general population and indicates half of respondents had a worse score. OBJECTIVE MEASURES WITH LEVEL OF FUNCTION: UE and Cervical Strength R UE Strength: 4/5 grossly periscapular L UE Strength: 4/5 grossly periscapular Special Tests - Hip and Spine Hip and Spine Special Tests: SLR Test SLR Test: Right Positive, Left Positive TREATMENT: Therapeutic Exercise: 1: *Supine sciatic nerve glides 3x10, bump on bump off 2: *Prone quad stretch 3x30 sec/side Skilled Intervention: Patient was educated in proper exercise technique and purpose for exercises. Skilled judgment was used in selection of appropriate interventions. Provided written instruction for home exercise program to facilitate proper performance and compliance. Correct performance of therapeutic exercises was facilitated with verbal, visual, and tactile cuing. Manual Therapy: 1: STM, CFM to R upper trap and B Suboccipitals with push to tolerance Dry Needling: (1) 40 and 50 mm needle to B C3 and C7 paraspinals in clock techniques plus TENS- see perameters below Skilled Intervention: Manual skills to improve joint mobility, ROM, and decrease pain. Utilized anatomy knowledge of the therapist, and assessment of patient's response to intervention. Modalities: Body Region Treated - E-Stim Attended/TENS: C3 and C7 Patient Position: Prone Current: 10 Hz Channels: 1-2, 3-4 Intensity: Ch 1-2 3.5 V, Ch 3-4 2.0 V Minutes: 12 Skilled Intervention: Proper administration and selection of modality based on clinical presentation, deficits, and needs. Patient response monitored throughout treatment. Billing Therapeutic Exercise Treatment Minutes: 8 Manual TherapyTreatment Minutes: 25 E- Stim Attended/TENS Treatment Minutes: 12 Skilled Treatment Time Minutes (timed and untimed codes): 45 Total Session Time (minutes): 45 Session Start Time : 1145 Session Stop Time : 1230 Beatriz Melissa PT Program_ID:[id number] Access Code: [email or web address] URL: [email or web address] Date: 02-22-2025 Prepared By: Mikal Bailey Program Notes Exercises - Face Pulls - 1 x daily - 7 x weekly - 3 sets - 10 reps - Shoulder extension with resistance - Neutral - 1 x daily - 7 x weekly - 3 sets - 10 reps - Shoulder External Rotation and Scapular Retraction with Resistance - 1 x daily - 7 x weekly - 3 sets - 10 reps - Standing Shoulder Row with Anchored Resistance - 1 x daily - 7 x weekly - 3 sets - 10 reps - Prone Shoulder Horizontal Abduction with Thumbs Up - 1 x daily - 7 x weekly - 3 sets - 10 reps - Prone Scapular Retraction Y - 1 x daily - 7 x weekly - 3 sets - 10 reps - Prone Scapular Slide with Shoulder Extension - 1 x daily - 7 x weekly - 3 sets - 10 reps - Supine Sciatic Nerve Millen - 1 x daily - 7 x weekly - 3 sets - 10 reps - Prone Quadriceps Stretch with Strap - 3 x daily - 7 x weekly - 1 sets - 3 reps documented in this encounter [facility] 02-16-2025 Note HNO ID: [id number] Author: BEATRIZ MELISSA PT Service: ? Author Type: Physical Therapist Type: Progress Notes Filed: 02/16/2025 15:35 Note Text: Episode Visit Count: 9 Therapist That Will Accept/Oversee The Plan Of Care: Beatriz Melissa Start of Care Date: 09/07/24 Onset Date: 12/01/23 REHABILITATION AND SPORTS THERAPY PHYSICAL THERAPY TREATMENT NOTE ASSESSMENT: Kira Adhikari tolerated the session with decreased symptoms. She demonstrated difficulty with neck pain and LBP. The patient will continue to benefit from ongoing skilled physical therapy to progress toward set goals. PLAN FOR NEXT VISIT: Manual as needed for symptom modulation, progress exercises when appropriate SUBJECTIVE: Patient has a sharp pain in her upper neck where it feels like her neck could go into spasms or lock up on her Pain: Pain Pain Level: 6 Pain Location: Neck, Low Back/Lumbar Spine- Midline Description: Aching, Sore, Tightness Frequency: Continuous OBJECTIVE MEASURES WITH LEVEL OF FUNCTION: Neck pain reproduced at upper cervical and suboccipitals today TREATMENT: Manual Therapy: 1: STM, CFM to R upper trap and B Suboccipitals with push to tolerance 2: During manual assessed appropriateness of HEP and determined it was best to hold with current neck and back exercises Dry Needling: (1) 40 and 50 mm needle to B C3 and C7 paraspinals in clock techniques plus TENS- see perameters below Skilled Intervention: Manual skills to improve joint mobility, ROM, and decrease pain. Utilized anatomy knowledge of the therapist, and assessment of patient's response to intervention. Modalities: Body Region Treated - E-Stim Attended/TENS: C3 and C7 Patient Position: Prone Current: 10 Hz Channels: 1-2, 3-4 Intensity: Ch 1-2 2.5-3.0 V, Ch 3-4 2.5-3.0 V Minutes: 12 Skilled Intervention: Proper administration and selection of modality based on clinical presentation, deficits, and needs. Patient response monitored throughout treatment. Billing Manual TherapyTreatment Minutes: 28 E- Stim Attended/TENS Treatment Minutes: 12 Skilled Treatment Time Minutes (timed and untimed codes): 40 Total Session Time (minutes): 40 Session Start Time : 1205 Session Stop Time : 1245 Beatriz Melissa, PT [facility] 02-16-2025 History of Present illness Narrative Episode Visit Count: 9 Therapist That Will Accept/Oversee The Plan Of Care: Beatriz Melissa Start of Care Date: 09/07/24 Onset Date: 12/01/23 REHABILITATION AND SPORTS THERAPY PHYSICAL THERAPY TREATMENT NOTE ASSESSMENT: Kira Adhikari tolerated the session with decreased symptoms. She demonstrated difficulty with neck pain and LBP. The patient will continue to benefit from ongoing skilled physical therapy to progress toward set goals. PLAN FOR NEXT VISIT: Manual as needed for symptom modulation, progress exercises when appropriate SUBJECTIVE: Patient has a sharp pain in her upper neck where it feels like her neck could go into spasms or lock up on her Pain: Pain Pain Level: 6 Pain Location: Neck, Low Back/Lumbar Spine- Midline Description: Aching, Sore, Tightness Frequency: Continuous OBJECTIVE MEASURES WITH LEVEL OF FUNCTION: Neck pain reproduced at upper cervical and suboccipitals today TREATMENT: Manual Therapy: 1: STM, CFM to R upper trap and B Suboccipitals with push to tolerance 2: During manual assessed appropriateness of HEP and determined it was best to hold with current neck and back exercises Dry Needling: (1) 40 and 50 mm needle to B C3 and C7 paraspinals in clock techniques plus TENS- see perameters below Skilled Intervention: Manual skills to improve joint mobility, ROM, and decrease pain. Utilized anatomy knowledge of the therapist, and assessment of patient's response to intervention. Modalities: Body Region Treated - E-Stim Attended/TENS: C3 and C7 Patient Position: Prone Current: 10 Hz Channels: 1-2, 3-4 Intensity: Ch 1-2 2.5-3.0 V, Ch 3-4 2.5-3.0 V Minutes: 12 Skilled Intervention: Proper administration and selection of modality based on clinical presentation, deficits, and needs. Patient response monitored throughout treatment. Billing Manual TherapyTreatment Minutes: 28 E- Stim Attended/TENS Treatment Minutes: 12 Skilled Treatment Time Minutes (timed and untimed codes): 40 Total Session Time (minutes): 40 Session Start Time : 1205 Session Stop Time : 1245 Beatriz Melissa PT documented in this encounter [facility] 02-15-2025 Telephone encounter Note Patient last seen on 12/30/24. [facility] 02-15-2025 Miscellaneous Notes Patient last seen on 12/30/24. documented in this encounter [facility] 02-15-2025 Note HNO ID: [id number] Author: TRUNG SALAZAR OD Service: ? 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 Regular astigmatism of both eyes (Primary) Finalized spec rx- small change Ordering cl trials in new lens since patient unable to comfortably wear previous daily lenses- will call for in office dispense 2. Dry eye syndrome of bilateral lacrimal glands Good control- okay to use artificial tears prn Follow-up for cl eval and dilation Trung Salazar OD February 15, 2025 9:01 AM [facility] 02-15-2025 History of Present illness Narrative 1. Regular astigmatism of both eyes (Primary) Finalized spec rx- small change Ordering cl trials in new lens since patient unable to comfortably wear previous daily lenses- will call for in office dispense 2. Dry eye syndrome of bilateral lacrimal glands Good control- okay to use artificial tears prn Follow-up for cl eval and dilation Trung Salazar OD February 15, 2025 9:01 AM documented in this encounter [facility] 02-11-2025 Note HNO ID: [id number] Author: TOMMY CARRILLO DO Service: ? Author Type: Physician Type: Progress Notes Filed: 02/11/2025 09:44 Note Text: UNIVERSAL PROTOCOL / SAFETY CHECKLIST Procedure to be Performed: EMG Sign In: A Moment of CARE was completed. Personnel directly involved with the procedure wore the appropriate PPE (Personal Protective Equipment). Patient/Surrogate Stated/Verified: Patient name, Date of , Relevant allergies, and The intended procedure Time Out Communication: Intended patient and procedure match the source documents. Correct side/site marked and visible. Sign Out: SIGN OUT (optional for EMERGENT procedures): Post-procedure follow-up management communicated and Plan of Care Visit completed when applicable. GREGORIO Gutierrez DO [facility] 03-14-2025 History of Present illness Narrative UNIVERSAL PROTOCOL / SAFETY CHECKLIST Procedure to be Performed: EMG Sign In: A Moment of CARE was completed. Personnel directly involved with the procedure wore the appropriate PPE (Personal Protective Equipment). Patient/Surrogate Stated/Verified: Patient name, Date of , Relevant allergies, and The intended procedure Time Out Communication: Intended patient and procedure match the source documents. Correct side/site marked and visible. Sign Out: SIGN OUT (optional for EMERGENT procedures): Post-procedure follow-up management communicated and Plan of Care Visit completed when applicable. GREGORIO Gutierrez DO documented in this encounter [facility] 02-09-2025 Telephone encounter Note See patient message David Kilgore DO [facility] 02-09-2025 Miscellaneous Notes See patient message David Kilgore DO documented in this encounter [facility] 02-08-2025 Telephone encounter Note Patient last seen on 12/30/24. [facility] 02-08-2025 Miscellaneous Notes Patient last seen on 12/30/24. documented in this encounter [facility] 02-08-2025 Note HNO ID: [id number] Author: ?, ?, ? Service: ? Author Type: ? Type: Progress Notes Filed: 02/10/2025 09:49 Note Text: [facility] Refill Assessment Medication(s): Orencia Patient's current medication list and adherence status to current therapy were reviewed by Specialty Pharmacy clinical pharmacist to identify any new drug interactions or non-compliance to therapy. Therapy continues to be appropriate for disease, patient response, and medical condition. Verification of therapeutic benefit and effectiveness with current therapy was completed. Adverse events, barriers in adherence, and side effects were assessed and addressed if applicable. Will proceed with refill with no changes in therapy - patient progressing towards achieving therapeutic goals based on medication-specific laboratory parameters, disease state markers and outcomes. Office/provider notes have been reviewed prior to dispensing the medication. 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 Med/dose confirmed: Yes Supplies needed: No supplies needed Missed doses: No Estimated days supply on hand: 0 Next cycle/dose due: 02/13/25 Copay amount: 0 Payment confirmed: Yes Delivery method: FedEx Signature required: No Delivery address: [address] [place] [id number] Delivery date: 02/11/25 Questions or concerns for the pharmacist?: No Did you have any side effects believed to be related to this medication, that resulted in hospitalization?: No Current Outpatient Medications on File Prior to Visit Medication Sig progesterone micronized (PROMETRIUM) 100 mg capsule Take 1 capsule by mouth daily at bedtime. fremanezumab-vfrm (AJOVY AUTOINJECTOR) 225 mg/1.5 mL auto-injector Inject 4.5 mL under the skin every 3 months. dihydroergotamine (TRUDHESA) 0.725 mg/pump act. (4 mg/mL) nasal spray Prime with 4 pumps before use. 1 spray in each nostril at migraine onset. May repeat once in 1 hour if needed. No more than 2 doses/24 hours and 3 doses/week. A complete dose is 2 sprays: 1 spray in each nostril. predniSONE (DELTASONE) 10 mg tablet Take 3 tablets by mouth daily for 1 week, then 2 tablets daily by mouth for 1 week , then 1 tablet by mouth daily for 1 week, then stop. Please take with food. valACYclovir (VALTREX) 1 gram tablet Take 1 tablet by mouth once daily. buPROPion SR (WELLBUTRIN SR) 150 mg 12 hr tablet Take 1 tablet by mouth two times a day. leflunomide (ARAVA) 20 mg tablet TAKE 1 TABLET BY MOUTH EVERY DAY rosuvastatin (CRESTOR) 5 mg tablet Take 1 tablet by mouth once daily. abatacept (ORENCIA CLICKJECT) 125 mg/mL auto-injector Inject 125mg (1 pen) subcutaneously one time a week. tirzepatide (MOUNJARO) 15 mg/0.5 mL pen injector Inject 15 mg subcutaneously one time a week. Diclofenac Potassium (CAMBIA) 50 mg pwpk Take 1 Packet by mouth as needed for migraine headache. Can repeat dose in 2 hours, no more than 2 doses per day, or 2 days per week Golkwjzz0-Fqeiik2-Imsab therm. (VSL#3) 112.5 billion cell cap Take 2 capsules by mouth daily at bedtime. ondansetron (ZOFRAN) 4 mg tablet Take 1 tablet by mouth every 12 hours as needed for nausea/vomiting. clobetasol (TEMOVATE) 0.05 % ointment Apply 1 application to affected area two times a day. Magnesium Citrate 150mg (Pure Encapsulations) Take 4 capsules daily. riboflavin, vitamin B2, (VITAMIN B-2) 100 mg tab Take 4 tablets by mouth once daily. coenzyme Q10 (COQ-10) 100 mg cap capsule Take 1 capsule by mouth twice daily. vitamin D3-folic acid 5,000 unit- 1 mg tab Take 5,000 Units by mouth once daily. multivitamin tablet Take 1 tablet by mouth once daily. No current facility-administered medications on file prior to visit. [facility] SPECIALTY CLINICAL ASSESSMENT - INFLAMMATORY CONDITIONS V7 Date of influenza vaccination reminder: 08/12/2024 Date of most recent vaccination assessment: 08/12/2024 Treatment Plan Information: Orencia Clickject 125mg/mL Inject 125mg (1 pen) subcutaneously one time a week. (M06.00) Seronegative rheumatoid arthritis Past treatment: Amy Bernabe Humira Est. Tx Plan Start Date: 10/09/2024 Estimated Start Date Info: No information available Est. Estimated Treatment Duration: Until loss of efficacy and/or no longer tolerated. Ginny Smith CPhT [facility], Inflammatory P: [phone] F: [phone] [facility] 02-08-2025 Note HNO ID: [id number] Author: BEATRIZ MELISSA PT Service: ? Author Type: Physical Therapist Type: Progress Notes Filed: 02/08/2025 13:16 Note Text: Episode Visit Count: 8 Therapist That Will Accept/Oversee The Plan Of Care: Beatriz Melissa Start of Care Date: 09/07/24 Onset Date: 12/01/23 REHABILITATION AND SPORTS THERAPY PHYSICAL THERAPY TREATMENT NOTE ASSESSMENT: Kira Adhikari tolerated the session with decreased symptoms. She demonstrated improvements in neck pain and tolerance for shoulder and neck strengthening. The patient will continue to benefit from ongoing skilled physical therapy to progress toward set goals. PLAN FOR NEXT VISIT: Continue manual as needed, progress exercises when appropriate SUBJECTIVE: Patient continues to progress with exercises and feels they are appropriate currently. Neck is tight today, about her norm. Shoulders have been feeling really weak with the Y's Pain: Pain Pain Level: 5 Pain Location: Neck, Low Back/Lumbar Spine- Midline Description: Aching, Sore, Tightness Frequency: Continuous OBJECTIVE MEASURES WITH LEVEL OF FUNCTION: Tenderness to B C3-7 paraspinals TREATMENT: Manual Therapy: 1: STM, CFM to R upper trap and B SCM with push to tolerance Dry Needling: (1) 40 and 50 mm needle to B C3 and C7 paraspinals in clock techniques plus TENS- see perameters below Skilled Intervention: Manual skills to improve joint mobility, ROM, and decrease pain. Utilized anatomy knowledge of the therapist, and assessment of patient's response to intervention. Modalities: Body Region Treated - E-Stim Attended/TENS: C3 and C7 Patient Position: Prone Current: 10 Hz Channels: 1-2, 3-4 Intensity: Ch 1-2 2.5 V, Ch 3-4 4.0 V Minutes: 12 Skilled Intervention: Proper administration and selection of modality based on clinical presentation, deficits, and needs. Patient response monitored throughout treatment. Billing Manual TherapyTreatment Minutes: 17 E- Stim Attended/TENS Treatment Minutes: 12 Skilled Treatment Time Minutes (timed and untimed codes): 29 Total Session Time (minutes): 29 Session Start Time : 1214 Session Stop Time : 1243 Beatriz Melissa, PT [facility] 02-08-2025 History of Present illness Narrative Episode Visit Count: 8 Therapist That Will Accept/Oversee The Plan Of Care: Beatrizmani Melissa Start of Care Date: 09/07/24 Onset Date: 12/01/23 REHABILITATION AND SPORTS THERAPY PHYSICAL THERAPY TREATMENT NOTE ASSESSMENT: Kira Adhikari tolerated the session with decreased symptoms. She demonstrated improvements in neck pain and tolerance for shoulder and neck strengthening. The patient will continue to benefit from ongoing skilled physical therapy to progress toward set goals. PLAN FOR NEXT VISIT: Continue manual as needed, progress exercises when appropriate SUBJECTIVE: Patient continues to progress with exercises and feels they are appropriate currently. Neck is tight today, about her norm. Shoulders have been feeling really weak with the Y's Pain: Pain Pain Level: 5 Pain Location: Neck, Low Back/Lumbar Spine- Midline Description: Aching, Sore, Tightness Frequency: Continuous OBJECTIVE MEASURES WITH LEVEL OF FUNCTION: Tenderness to B C3-7 paraspinals TREATMENT: Manual Therapy: 1: STM, CFM to R upper trap and B SCM with push to tolerance Dry Needling: (1) 40 and 50 mm needle to B C3 and C7 paraspinals in clock techniques plus TENS- see perameters below Skilled Intervention: Manual skills to improve joint mobility, ROM, and decrease pain. Utilized anatomy knowledge of the therapist, and assessment of patient's response to intervention. Modalities: Body Region Treated - E-Stim Attended/TENS: C3 and C7 Patient Position: Prone Current: 10 Hz Channels: 1-2, 3-4 Intensity: Ch 1-2 2.5 V, Ch 3-4 4.0 V Minutes: 12 Skilled Intervention: Proper administration and selection of modality based on clinical presentation, deficits, and needs. Patient response monitored throughout treatment. Billing Manual TherapyTreatment Minutes: 17 E- Stim Attended/TENS Treatment Minutes: 12 Skilled Treatment Time Minutes (timed and untimed codes): 29 Total Session Time (minutes): 29 Session Start Time : 1214 Session Stop Time : 1243 Beatriz Melissa PT documented in this encounter [facility] 02-04-2025 History of Present illness Narrative HISTORY AND PHYSICAL Kira Adhikari : 1985 REFERRING PHYSICIAN: Roxanna Nunes [address] [facility] [id number] CHIEF COMPLAINT: Patient presents with: Consult HPI: Kira is a 39 year old female referred for endoscopy. Kira notes recent increase in chest pain/ reflux. She had a cardiac work up including ECHO which was negative. Kira has fentanyl listed as an allergy on her list d/t itching. She has had IV fentanyl & IV benadryl multiple times for injections under moderate sedation with no problem- she would like to proceed in ASC. Kira notes heartburn. -mostly in her chest -not triggered by anything specific -has had relief with pepto or pepcid Kira notes recent history of dysphagia. -carbonated beverages and solids- feels like she can't get it down and she needs to throw it back up Kira notes a history of ulcers/ peptic ulcer disease. -after using doxycycline over 10 years ago Kira also notes PCP ordered serum H. Pylori which returned positive. She has had this test multiple times in the past and this is the first time it has been positive. Kira notes hx of GERD & SIBO in the past that was treated with Rifaximin for 4-6 weeks with good relief. Kira's medical history is significant for inflammatory arthritis, migraines, and PCOS. Kira has undergone prior endoscopy. > 10 years ago Current Outpatient Medications Medication Sig progesterone micronized (PROMETRIUM) 100 mg capsule Take 1 capsule by mouth daily at bedtime. fremanezumab-vfrm (AJOVY AUTOINJECTOR) 225 mg/1.5 mL auto-injector Inject 4.5 mL under the skin every 3 months. dihydroergotamine (TRUDHESA) 0.725 mg/pump act. (4 mg/mL) nasal spray Prime with 4 pumps before use. 1 spray in each nostril at migraine onset. May repeat once in 1 hour if needed. No more than 2 doses/24 hours and 3 doses/week. A complete dose is 2 sprays: 1 spray in each nostril. predniSONE (DELTASONE) 10 mg tablet Take 3 tablets by mouth daily for 1 week, then 2 tablets daily by mouth for 1 week , then 1 tablet by mouth daily for 1 week, then stop. Please take with food. valACYclovir (VALTREX) 1 gram tablet Take 1 tablet by mouth once daily. buPROPion SR (WELLBUTRIN SR) 150 mg 12 hr tablet Take 1 tablet by mouth two times a day. leflunomide (ARAVA) 20 mg tablet TAKE 1 TABLET BY MOUTH EVERY DAY rosuvastatin (CRESTOR) 5 mg tablet Take 1 tablet by mouth once daily. abatacept (ORENCIA CLICKJECT) 125 mg/mL auto-injector Inject 125mg (1 pen) subcutaneously one time a week. tirzepatide (MOUNJARO) 15 mg/0.5 mL pen injector Inject 15 mg subcutaneously one time a week. Diclofenac Potassium (CAMBIA) 50 mg pwpk Take 1 Packet by mouth as needed for migraine headache. Can repeat dose in 2 hours, no more than 2 doses per day, or 2 days per week Ybsdfrpm3-Kjyhku7-Hxpvw therm. (VSL#3) 112.5 billion cell cap Take 2 capsules by mouth daily at bedtime. ondansetron (ZOFRAN) 4 mg tablet Take 1 tablet by mouth every 12 hours as needed for nausea/vomiting. Magnesium Citrate 150mg (Pure Encapsulations) Take 4 capsules daily. riboflavin, vitamin B2, (VITAMIN B-2) 100 mg tab Take 4 tablets by mouth once daily. coenzyme Q10 (COQ-10) 100 mg cap capsule Take 1 capsule by mouth twice daily. vitamin D3-folic acid 5,000 unit- 1 mg tab Take 5,000 Units by mouth once daily. multivitamin tablet Take 1 tablet by mouth once daily. clobetasol (TEMOVATE) 0.05 % ointment Apply 1 application to affected area two times a day. No current facility-administered medications for this visit. 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 PAST SURGICAL HISTORY Procedure Laterality Date CONIZATION OF CERVIX, LEEP NECK SURGERY HX 08/19/2016 Left C7 foraminotomy, Left C6-7 diskectomy - w/ benefit though continues to have pain (left side of neck, shooting pains in arm, left wrist and distal numbness) PAST SURGICAL HISTORY OF at age of 6 years left inguinal hernia repair PAST SURGICAL HISTORY OF Tonsillectomy FAMILY HISTORY Problem Relation Age of Onset Hyperlipidemia Mother baseline TC 300's, smoker Diabetes Mother type 1 autoimune Obesity Father Hyperlipidemia Father Hypertension Father Prostate Cancer Father Social History Tobacco Use Smoking status: Never Smokeless tobacco: Never Vaping Use Vaping status: Never Used Substance Use Topics Alcohol use: Not Currently Comment: none since 2019 Drug use: Never REVIEW OF SYMPTOMS: REVIEW OF SYSTEMS: General: The patient + fatigue, denies weight loss, denies weight gain, denies feeling hot, and feelings of cold. Eyes: The patient denies glaucoma, denies eye injury/surgery, denies glasses or contacts. Ear/Nose/Throat: The patient denies allergies, denies hayfever, denies ear infections, and denies bloody noses. Cardiovascular: The patient denies chest pain, denies heart disease, denies high blood pressure, denies high cholesterol, and denies poor circulation. Respiratory: The patient denies tuberculosis, denies pneumonia, denies frequent cough, denies shortness of breath, and denies coughing up blood. Gastrointestinal: The patient + difficulty swallowing, + acid reflux, denies ulcers, denies jaundice/hepatitis, denies gallbladder problems, denies vomiting, denies black or tarry stools, denies hemorrhoids, denies bleeding from rectum, denies diverticulitis, + constipation, denies diarrhea, denies loss of stool control, and denies hernias. Kidney/Bladder: The patient denies kidney stones, + urine infections, and denies bloody urine. Skin: The patient denies a history of skin cancer, denies bleeding/changing moles, and denies a history of skin rash. Neurologic: The patient denies a history of epilepsy/convulsions, denies headaches, denies head/spinal injuries, and denies stroke/TIA. Psychiatric: The patient denies psychiatric medications, denies depression, and denies voices. Endocrine: The patient denies thyroid disorders, denies diabetes, and denies hormonal problems. Hematologic: The patient denies a history of bruising, denies bleeding, and denies anemia. Infections: The patient denies a history of measles and mumps, denies rheumatic fever, and denies sexually transmitted diseases. Musculoskeletal: The patient + back pain/injury, + back problems, denies sciatica, denies knee/foot trouble, denies arthritis, or denies gout. PHYSICAL EXAMINATION: General: The patient is 39 year old, female well nourished, well hydrated in no acute distress. The patient is oriented to time, place, and person. VITALS: Blood pressure 114/76, pulse 98, temperature 37.2 C (98.9 F), temperature source Temporal, resp. rate 12, height 165.1 cm (5' 5), weight 61.2 kg (135 lb), last menstrual period 01/31/2025, SpO2 99%. Body mass index is 22.47 kg/m . HEENT: Normal cephalic, ataumatic, pupils are equally round, sclera are anicteric, mucous membranes are moist, oropharynx is clear. Neck has no masses, asymmetry or lymphadenopathy. Respiratory: Clear to auscultation and percussion. Normal respiratory excursion and pattern. Cardiac: Examination is regular rate and rhythm. Normal S1/S2 Abdominal exam: Soft, nontender, with no palpable masses. No hepatosplenomegaly. No palpable hernias. Extremities: no clubbing, cyanosis or edema. No adenopathy. LABORATORY VALUES: As Noted RADIOLOGIC STUDIES: As Noted Assessment IMPRESSION: GERD, positive H. Pylori serology, dysphagia PLAN: I have reviewed my findings with the surgeon. Will plan for upper endoscopy. We discussed the risks and benefits of the planned endoscopy. I have informed the patient that complications can occur including failure to complete the endoscopy and perforation. Kira had the opportunity to ask questions concerning the planned endoscopy. My staff has also explained the procedure to the patient in understandable terms and has given the patient printed material concerning the procedure. Kira freely consents to surgery. Instructed to hold Mounjaro for 7 days prior to endoscopy. I have explained to the patient the difference between IV conscious sedation and MAC anesthesia - and I have offered either, according to the patient's wishes. I have explained that with IV conscious sedation there is no anesthesia provider available and therefore there is a limitation of the amount of IV medications that can be given and that the patient may wake up in the middle of the procedure and/or experience pain/discomfort during the procedure. Further discussion was done and the patient was given the opportunity to ask questions and all questions were answered. Kira chooses IV conscious sedation. Kira was counseled that if there are changes in his/her medical condition, to let the office know if surgery should proceed. If there are changes in patient's medical condition from time of this encounter to the day of the procedure that preclude anesthesia, patient may have procedure cancelled for patient's safety. Diagnoses: (K21.9) Gastroesophageal reflux disease, unspecified whether esophagitis present (primary encounter diagnosis) Consultation requested by Roxanna Nunes PA-C for an opinion regarding GERD. My final recommendations will be communicated back to the requesting physician by way of shared Medical record or letter to requesting physician via US mail. Portions of this documentation were copied and pasted from previous office visit notes in order to provide a cohesive continuity of the history. The note has been reviewed and edited and updated as necessary. Janiya Ziegler APRN.ARELY documented in this encounter [facility] 02-04-2025 Note HNO ID: [id number] Author: JANIYA ZIEGLER APRN.CNP Service: ? Author Type: Nurse Practitioner Type: Progress Notes Filed: 02/04/2025 11:05 Note Text: HISTORY AND PHYSICAL Kira Adhikari : 1985 REFERRING PHYSICIAN[facility] [address] CHIEF COMPLAINT: Patient presents with: Consult HPI: Kira is a 39 year old female referred for endoscopy. Kira notes recent increase in chest pain/ reflux. She had a cardiac work up including ECHO which was negative. Kira has fentanyl listed as an allergy on her list d/t itching. She has had IV fentanyl AND IV benadryl multiple times for injections under moderate sedation with no problem- she would like to proceed in ASC. Kira notes heartburn. -mostly in her chest -not triggered by anything specific -has had relief with pepto or pepcid Kira notes recent history of dysphagia. -carbonated beverages and solids- feels like she can't get it down and she needs to throw it back up Kira notes a history of ulcers/ peptic ulcer disease. -after using doxycycline over 10 years ago Kira also notes PCP ordered serum H. Pylori which returned positive. She has had this test multiple times in the past and this is the first time it has been positive. Kira notes hx of GERD AND SIBO in the past that was treated with Rifaximin for 4-6 weeks with good relief. Kira's medical history is significant for inflammatory arthritis, migraines, and PCOS. Kira has undergone prior endoscopy. > 10 years ago Current Outpatient Medications Medication Sig progesterone micronized (PROMETRIUM) 100 mg capsule Take 1 capsule by mouth daily at bedtime. fremanezumab-vfrm (AJOVY AUTOINJECTOR) 225 mg/1.5 mL auto-injector Inject 4.5 mL under the skin every 3 months. dihydroergotamine (TRUDHESA) 0.725 mg/pump act. (4 mg/mL) nasal spray Prime with 4 pumps before use. 1 spray in each nostril at migraine onset. May repeat once in 1 hour if needed. No more than 2 doses/24 hours and 3 doses/week. A complete dose is 2 sprays: 1 spray in each nostril. predniSONE (DELTASONE) 10 mg tablet Take 3 tablets by mouth daily for 1 week, then 2 tablets daily by mouth for 1 week , then 1 tablet by mouth daily for 1 week, then stop. Please take with food. valACYclovir (VALTREX) 1 gram tablet Take 1 tablet by mouth once daily. buPROPion SR (WELLBUTRIN SR) 150 mg 12 hr tablet Take 1 tablet by mouth two times a day. leflunomide (ARAVA) 20 mg tablet TAKE 1 TABLET BY MOUTH EVERY DAY rosuvastatin (CRESTOR) 5 mg tablet Take 1 tablet by mouth once daily. abatacept (ORENCIA CLICKJECT) 125 mg/mL auto-injector Inject 125mg (1 pen) subcutaneously one time a week. tirzepatide (MOUNJARO) 15 mg/0.5 mL pen injector Inject 15 mg subcutaneously one time a week. Diclofenac Potassium (CAMBIA) 50 mg pwpk Take 1 Packet by mouth as needed for migraine headache. Can repeat dose in 2 hours, no more than 2 doses per day, or 2 days per week Ddlzkyio3-Bqqgqg6-Evhom therm. (VSL#3) 112.5 billion cell cap Take 2 capsules by mouth daily at bedtime. ondansetron (ZOFRAN) 4 mg tablet Take 1 tablet by mouth every 12 hours as needed for nausea/vomiting. Magnesium Citrate 150mg (Pure Encapsulations) Take 4 capsules daily. riboflavin, vitamin B2, (VITAMIN B-2) 100 mg tab Take 4 tablets by mouth once daily. coenzyme Q10 (COQ-10) 100 mg cap capsule Take 1 capsule by mouth twice daily. vitamin D3-folic acid 5,000 unit- 1 mg tab Take 5,000 Units by mouth once daily. multivitamin tablet Take 1 tablet by mouth once daily. clobetasol (TEMOVATE) 0.05 % ointment Apply 1 application to affected area two times a day. No current facility-administered medications for this visit. 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 PAST SURGICAL HISTORY Procedure Laterality Date CONIZATION OF CERVIX, LEEP NECK SURGERY HX 08/19/2016 Left C7 foraminotomy, Left C6-7 diskectomy - w/ benefit though continues to have pain (left side of neck, shooting pains in arm, left wrist and distal numbness) PAST SURGICAL HISTORY OF at age of 6 years left inguinal hernia repair PAST SURGICAL HISTORY OF Tonsillectomy FAMILY HISTORY Problem Relation Age of Onset Hyperlipidemia Mother baseline TC 300's, smoker Diabetes Mother type 1 autoimune Obesity Father Hyperlipidemia Father Hypertension Father Prostate Cancer Father Social History Tobacco Use Smoking status: Never Smokeless tobacco: Never Vaping Use Vaping status: Never Used Substance Use Topics Al (more content not included)... [facility] 02-04-2025 Telephone encounter Note 03-16-2025 TOAN Tamez [facility] 02-04-2025 Miscellaneous Notes 03-16-2025 EGOsman Tamez documented in this encounter [facility] 02-01-2025 Note HNO ID: [id number] Author: BEATRIZ MELISSA PT Service: ? Author Type: Physical Therapist Type: Progress Notes Filed: 02/01/2025 13:01 Note Text: Episode Visit Count: 7 Therapist That Will Accept/Oversee The Plan Of Care: Beatriz Melissa Start of Care Date: 09/07/24 Onset Date: 12/01/23 [facility]ERAPY PHYSICAL THERAPY TREATMENT NOTE ASSESSMENT: Kira Adhikari tolerated the session with decreased symptoms. She demonstrated difficulty with NGUYEN's and new occurrence of chronic LBP. The patient will continue to benefit from ongoing skilled physical therapy to progress toward set goals. PLAN FOR NEXT VISIT: SUBJECTIVE: Patient had a migraine after last weekend. She was at a [employer] conference and all the sitting and different neck angles seemed to really flare her. LBP has started to bother her again as well, she would like to work on this Pain: Pain Pain Level: 6 Pain Location: Neck, Low Back/Lumbar Spine- Midline Description: Aching, Sore, Tightness Frequency: Continuous OBJECTIVE MEASURES WITH LEVEL OF FUNCTION: TREATMENT: Manual Therapy: 1: STM, CFM to R upper trap and B SCM with push to tolerance 2: Manual cervical traction x10 min Dry Needling: (1) 40 and 50 mm needle to B C3 and C7 paraspinals in clock techniques plus TENS- see perameters below Skilled Intervention: Manual skills to improve joint mobility, ROM, and decrease pain. Utilized anatomy knowledge of the therapist, and assessment of patient's response to intervention. Modalities: Body Region Treated - E-Stim Attended/TENS: C3 and C7 Patient Position: Prone Current: 10 Hz Channels: 1-2, 3-4 Intensity: Ch 1-2 2.5-3.0 V, Ch 3-4 3.0-3.5 V Minutes: 10 Skilled Intervention: Proper administration and selection of modality based on clinical presentation, deficits, and needs. Patient response monitored throughout treatment. Billing Manual TherapyTreatment Minutes: 29 E- Stim Attended/TENS Treatment Minutes: 10 Skilled Treatment Time Minutes (timed and untimed codes): 39 Total Session Time (minutes): 39 Session Start Time : 1220 Session Stop Time : 1259 Beatriz Melissa, PT [facility] 02-01-2025 History of Present illness Narrative Episode Visit Count: 7 Therapist That Will Accept/Oversee The Plan Of Care: Beatriz Melissa Start of Care Date: 09/07/24 Onset Date: 12/01/23 REHABILITATION AND SPORTS THERAPY PHYSICAL THERAPY TREATMENT NOTE ASSESSMENT: Kira Adhikari tolerated the session with decreased symptoms. She demonstrated difficulty with NGUYEN's and new occurrence of chronic LBP. The patient will continue to benefit from ongoing skilled physical therapy to progress toward set goals. PLAN FOR NEXT VISIT: SUBJECTIVE: Patient had a migraine after last weekend. She was at a [employer] conference and all the sitting and different neck angles seemed to really flare her. LBP has started to bother her again as well, she would like to work on this Pain: Pain Pain Level: 6 Pain Location: Neck, Low Back/Lumbar Spine- Midline Description: Aching, Sore, Tightness Frequency: Continuous OBJECTIVE MEASURES WITH LEVEL OF FUNCTION: TREATMENT: Manual Therapy: 1: STM, CFM to R upper trap and B SCM with push to tolerance 2: Manual cervical traction x10 min Dry Needling: (1) 40 and 50 mm needle to B C3 and C7 paraspinals in clock techniques plus TENS- see perameters below Skilled Intervention: Manual skills to improve joint mobility, ROM, and decrease pain. Utilized anatomy knowledge of the therapist, and assessment of patient's response to intervention. Modalities: Body Region Treated - E-Stim Attended/TENS: C3 and C7 Patient Position: Prone Current: 10 Hz Channels: 1-2, 3-4 Intensity: Ch 1-2 2.5-3.0 V, Ch 3-4 3.0-3.5 V Minutes: 10 Skilled Intervention: Proper administration and selection of modality based on clinical presentation, deficits, and needs. Patient response monitored throughout treatment. Billing Manual TherapyTreatment Minutes: 29 E- Stim Attended/TENS Treatment Minutes: 10 Skilled Treatment Time Minutes (timed and untimed codes): 39 Total Session Time (minutes): 39 Session Start Time : 1220 Session Stop Time : 1259 Beatriz Melissa PT Program_ID:[id number] Access Code: [email or web address] URL: [email or web address] Date: 02-01-2025 Prepared By: Mikal Bailey Program Notes Exercises - Face Pulls - 1 x daily - 7 x weekly - 3 sets - 10 reps - Shoulder extension with resistance - Neutral - 1 x daily - 7 x weekly - 3 sets - 10 reps - Shoulder External Rotation and Scapular Retraction with Resistance - 1 x daily - 7 x weekly - 3 sets - 10 reps - Standing Shoulder Row with Anchored Resistance - 1 x daily - 7 x weekly - 3 sets - 10 reps - Prone Shoulder Horizontal Abduction with Thumbs Up - 1 x daily - 7 x weekly - 3 sets - 10 reps - Prone Scapular Retraction Y - 1 x daily - 7 x weekly - 3 sets - 10 reps - Prone Scapular Slide with Shoulder Extension - 1 x daily - 7 x weekly - 3 sets - 10 reps documented in this encounter [facility] 01-31-2025 History of Present illness Narrative Kira Adhikari is a 39 year old female who presents for problem visit PMS. HPI: Presents today with complaint of PMS symptoms. Feels increased mood swings, sadness, and fatigue. Notices this mid cycle and will last until into menses. Does not notice at other times. This has become more frequent in the last 5 years but feels it is worsening. Wanting to try progesterone cyclical and see if this would be beneficial. No history of anxiety, depression, or other mental health disorders. Denies any thoughts of self harm SI or HI. Menses are regular monthly, last about 5-7 days. Will have heavy flow and dysmenorrhea but dealing with this at this time. Denies any hot flashes or night sweats. OB History No obstetric history on file. 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 PAST SURGICAL HISTORY Procedure Laterality Date CONIZATION OF CERVIX, LEEP NECK SURGERY HX 08/19/2016 Left C7 foraminotomy, Left C6-7 diskectomy - w/ benefit though continues to have pain (left side of neck, shooting pains in arm, left wrist and distal numbness) PAST SURGICAL HISTORY OF at age of 6 years left inguinal hernia repair PAST SURGICAL HISTORY OF Tonsillectomy FAMILY HISTORY Problem Relation Age of Onset Hyperlipidemia Mother baseline TC 300's, smoker Diabetes Mother type 1 autoimune Obesity Father Hyperlipidemia Father Hypertension Father Prostate Cancer Father Social History Tobacco Use Smoking status: Never Smokeless tobacco: Never Vaping Use Vaping status: Never Used Substance Use Topics Alcohol use: Not Currently Comment: none since 2019 Drug use: No Current Outpatient Medications Medication Sig fremanezumab-vfrm (AJOVY AUTOINJECTOR) 225 mg/1.5 mL auto-injector Inject 4.5 mL under the skin every 3 months. dihydroergotamine (TRUDHESA) 0.725 mg/pump act. (4 mg/mL) nasal spray Prime with 4 pumps before use. 1 spray in each nostril at migraine onset. May repeat once in 1 hour if needed. No more than 2 doses/24 hours and 3 doses/week. A complete dose is 2 sprays: 1 spray in each nostril. predniSONE (DELTASONE) 10 mg tablet Take 3 tablets by mouth daily for 1 week, then 2 tablets daily by mouth for 1 week , then 1 tablet by mouth daily for 1 week, then stop. Please take with food. valACYclovir (VALTREX) 1 gram tablet Take 1 tablet by mouth once daily. buPROPion SR (WELLBUTRIN SR) 150 mg 12 hr tablet Take 1 tablet by mouth two times a day. leflunomide (ARAVA) 20 mg tablet TAKE 1 TABLET BY MOUTH EVERY DAY rosuvastatin (CRESTOR) 5 mg tablet Take 1 tablet by mouth once daily. abatacept (ORENCIA CLICKJECT) 125 mg/mL auto-injector Inject 125mg (1 pen) subcutaneously one time a week. tirzepatide (MOUNJARO) 15 mg/0.5 mL pen injector Inject 15 mg subcutaneously one time a week. Diclofenac Potassium (CAMBIA) 50 mg pwpk Take 1 Packet by mouth as needed for migraine headache. Can repeat dose in 2 hours, no more than 2 doses per day, or 2 days per week Wcjvrbaq1-Hitkia4-Vjgjw therm. (VSL#3) 112.5 billion cell cap Take 2 capsules by mouth daily at bedtime. ondansetron (ZOFRAN) 4 mg tablet Take 1 tablet by mouth every 12 hours as needed for nausea/vomiting. clobetasol (TEMOVATE) 0.05 % ointment Apply 1 application to affected area two times a day. Magnesium Citrate 150mg (Pure Encapsulations) Take 4 capsules daily. riboflavin, vitamin B2, (VITAMIN B-2) 100 mg tab Take 4 tablets by mouth once daily. coenzyme Q10 (COQ-10) 100 mg cap capsule Take 1 capsule by mouth twice daily. vitamin D3-folic acid 5,000 unit- 1 mg tab Take 5,000 Units by mouth once daily. multivitamin tablet Take 1 tablet by mouth once daily. No current facility-administered medications for this visit. Allergies As of Date: 01/31/2025 Allergen Noted Reaction DILAUDID [HYDROMORPHONE] 08/06/2016 Itching FENTANYL 08/06/2016 Itching SULFA (SULFONAMIDE ANTIBIOTICS) 08/06/2016 Rash Fully Assessed 12/08/2024 REVIEW OF SYSTEMS Abdomen: No bloating, early satiety, indigestion, or increased flatulence. No abdominal pain, nausea, vomiting, diarrhea, or constipation. Bladder: No dysuria, gross hematuria, urinary frequency, urinary urgency, or incontinence. Breast: No breast lumps, nipple d/c, overlying skin changes, redness or skin retraction. Expanded ROS: N/A Allergies and current medication updated:Yes SENSITIVE EXAM: Sensitive exam not performed. EXAM: LMP 11/01/2024 GENERAL: pleasant, female in no apparent distress HEENT: Normocephalic, atraumatic, mucus membranes moist, and no lesions NECK: Supple, full range of motion, no adenopathy, and thyroid normal DERMATOLOGY: Normal, without lesions, non-icteric, and non-hirsute CHEST: Normal inspiratory effort NEURO: alert and oriented x3,exam grossly non-focal EXTREMITIES: normal ASSESSMENT AND PLAN: Assessment & Plan PMS (premenstrual syndrome) Will try Prometrium 100mg PO at HS for 3 months. Recommend annual exam and pap smear every 3 years due to autoimmune disorder and immunosuppressant therapy Mood swings Will try Prometrium 100mg PO at HS for 3 months. Recommend annual exam and pap smear every 3 years due to autoimmune disorder and immunosuppressant therapy Feeling of sadness Will try Prometrium 100mg PO at HS for 3 months. Recommend annual exam and pap smear every 3 years due to autoimmune disorder and immunosuppressant therapy Eula Rm APRN.KRISTOFERM documented in this encounter [facility] 01-31-2025 Note HNO ID: [id number] Author: EULA RM APRN.CNM Service: ? Author Type: Member Services Representative Type: Progress Notes Filed: 01/31/2025 15:48 Note Text: Kira Adhikari is a 39 year old female who presents for problem visit PMS. HPI: Presents today with complaint of PMS symptoms. Feels increased mood swings, sadness, and fatigue. Notices this mid cycle and will last until into menses. Does not notice at other times. This has become more frequent in the last 5 years but feels it is worsening. Wanting to try progesterone cyclical and see if this would be beneficial. No history of anxiety, depression, or other mental health disorders. Denies any thoughts of self harm SI or HI. Menses are regular monthly, last about 5-7 days. Will have heavy flow and dysmenorrhea but dealing with this at this time. Denies any hot flashes or night sweats. OB History No obstetric history on file. 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 PAST SURGICAL HISTORY Procedure Laterality Date CONIZATION OF CERVIX, LEEP NECK SURGERY HX 08/19/2016 Left C7 foraminotomy, Left C6-7 diskectomy - w/ benefit though continues to have pain (left side of neck, shooting pains in arm, left wrist and distal numbness) PAST SURGICAL HISTORY OF at age of 6 years left inguinal hernia repair PAST SURGICAL HISTORY OF Tonsillectomy FAMILY HISTORY Problem Relation Age of Onset Hyperlipidemia Mother baseline TC 300's, smoker Diabetes Mother type 1 autoimune Obesity Father Hyperlipidemia Father Hypertension Father Prostate Cancer Father Social History Tobacco Use Smoking status: Never Smokeless tobacco: Never Vaping Use Vaping status: Never Used Substance Use Topics Alcohol use: Not Currently Comment: none since 2019 Drug use: No Current Outpatient Medications Medication Sig fremanezumab-vfrm (AJOVY AUTOINJECTOR) 225 mg/1.5 mL auto-injector Inject 4.5 mL under the skin every 3 months. dihydroergotamine (TRUDHESA) 0.725 mg/pump act. (4 mg/mL) nasal spray Prime with 4 pumps before use. 1 spray in each nostril at migraine onset. May repeat once in 1 hour if needed. No more than 2 doses/24 hours and 3 doses/week. A complete dose is 2 sprays: 1 spray in each nostril. predniSONE (DELTASONE) 10 mg tablet Take 3 tablets by mouth daily for 1 week, then 2 tablets daily by mouth for 1 week , then 1 tablet by mouth daily for 1 week, then stop. Please take with food. valACYclovir (VALTREX) 1 gram tablet Take 1 tablet by mouth once daily. buPROPion SR (WELLBUTRIN SR) 150 mg 12 hr tablet Take 1 tablet by mouth two times a day. leflunomide (ARAVA) 20 mg tablet TAKE 1 TABLET BY MOUTH EVERY DAY rosuvastatin (CRESTOR) 5 mg tablet Take 1 tablet by mouth once daily. abatacept (ORENCIA CLICKJECT) 125 mg/mL auto-injector Inject 125mg (1 pen) subcutaneously one time a week. tirzepatide (MOUNJARO) 15 mg/0.5 mL pen injector Inject 15 mg subcutaneously one time a week. Diclofenac Potassium (CAMBIA) 50 mg pwpk Take 1 Packet by mouth as needed for migraine headache. Can repeat dose in 2 hours, no more than 2 doses per day, or 2 days per week Iwmmczmu6-Fvyljv6-Msqed therm. (VSL#3) 112.5 billion cell cap Take 2 capsules by mouth daily at bedtime. ondansetron (ZOFRAN) 4 mg tablet Take 1 tablet by mouth every 12 hours as needed for nausea/vomiting. clobetasol (TEMOVATE) 0.05 % ointment Apply 1 application to affected area two times a day. Magnesium Citrate 150mg (Pure Encapsulations) Take 4 capsules daily. riboflavin, vitamin B2, (VITAMIN B-2) 100 mg tab Take 4 tablets by mouth once daily. coenzyme Q10 (COQ-10) 100 mg cap capsule Take 1 capsule by mouth twice daily. vitamin D3-folic acid 5,000 unit- 1 mg tab Take 5,000 Units by mouth once daily. multivitamin tablet Take 1 tablet by mouth once daily. No current facility-administered medications for this visit. Allergies As of Date: 01/31/2025 Allergen Noted Reaction DILAUDID [HYDROMORPHONE] 08/06/2016 Itching FENTANYL 08/06/2016 Itching SULFA (SULFONAMIDE ANTIBIOTICS) 08/06/2016 Rash Fully Assessed 12/08/2024 REVIEW OF SYSTEMS Abdomen: No bloating, early satiety, indigestion, or increased flatulence. No abdominal pain, nausea, vomiting, diarrhea, or constipation. Bladder: No dysuria, gross hematuria, urinary frequency, urinary urgency, or incontinence. Breast: No breast lumps, nipple d/c, overlying skin changes, redness o (more content not included)... [facility] 01-25-2025 Note HNO ID: [id number] Author: BEATRIZ MELISSA, PT Service: ? Author Type: Physical Therapist Type: Progress Notes Filed: 01/25/2025 14:02 Note Text: Episode Visit Count: 6 Therapist That Will Accept/Oversee The Plan Of Care: Beatriz Melissa Start of Care Date: 09/07/24 Onset Date: 12/01/23 [facility]AB[facility]ATION AND SPORTS THERAPY PHYSICAL THERAPY TREATMENT NOTE ASSESSMENT: Kira Adhikari tolerated the session with decreased symptoms. She demonstrated difficulty with neck pain and migraines. The patient will continue to benefit from ongoing skilled physical therapy to progress toward set goals. PLAN FOR NEXT VISIT: Continue manual as needed for symptom modulation, progress exercises per tolerance SUBJECTIVE: Patient had an all day migraine Sat, post migraine hangover Sun, and still tight/feeling the effects. Pain: Pain Pain Level: 6 Pain Location: Neck Description: Aching, Sore, Tightness, Radiating Frequency: Continuous OBJECTIVE MEASURES WITH LEVEL OF FUNCTION: Significant tenderness to B cervical paraspinals TREATMENT: Manual Therapy: 1: STM, CFM to R upper trap and B SCM with push to tolerance 2: Manual cervical traction x10 min Dry Needling: (1) 30 and 40 mm needle to B C3 and C7 paraspinals in clock techniques plus TENS- see perameters below Skilled Intervention: Manual skills to improve joint mobility, ROM, and decrease pain. Utilized anatomy knowledge of the therapist, and assessment of patient's response to intervention. Modalities: Body Region Treated - E-Stim Attended/TENS: C3 and C7 Patient Position: Prone Current: 10 Hz Channels: 1-2, 3-4 Intensity: Ch 1-2 3.0 V, Ch 3-4 3.0 V Minutes: 10 Skilled Intervention: Proper administration and selection of modality based on clinical presentation, deficits, and needs. Patient response monitored throughout treatment. Billing Manual TherapyTreatment Minutes: 32 E- Stim Attended/TENS Treatment Minutes: 10 Skilled Treatment Time Minutes (timed and untimed codes): 42 Total Session Time (minutes): 42 Session Start Time : 1218 Session Stop Time : 1300 Beatriz Melissa PT [facility] 01-25-2025 History of Present illness Narrative Episode Visit Count: 6 Therapist That Will Accept/Oversee The Plan Of Care: Beatriz Melissa Start of Care Date: 09/07/24 Onset Date: 12/01/23 REHABILITATION AND SPORTS THERAPY PHYSICAL THERAPY TREATMENT NOTE ASSESSMENT: Kira Adhikari tolerated the session with decreased symptoms. She demonstrated difficulty with neck pain and migraines. The patient will continue to benefit from ongoing skilled physical therapy to progress toward set goals. PLAN FOR NEXT VISIT: Continue manual as needed for symptom modulation, progress exercises per tolerance SUBJECTIVE: Patient had an all day migraine Sat, post migraine hangover Sun, and still tight/feeling the effects. Pain: Pain Pain Level: 6 Pain Location: Neck Description: Aching, Sore, Tightness, Radiating Frequency: Continuous OBJECTIVE MEASURES WITH LEVEL OF FUNCTION: Significant tenderness to B cervical paraspinals TREATMENT: Manual Therapy: 1: STM, CFM to R upper trap and B SCM with push to tolerance 2: Manual cervical traction x10 min Dry Needling: (1) 30 and 40 mm needle to B C3 and C7 paraspinals in clock techniques plus TENS- see perameters below Skilled Intervention: Manual skills to improve joint mobility, ROM, and decrease pain. Utilized anatomy knowledge of the therapist, and assessment of patient's response to intervention. Modalities: Body Region Treated - E-Stim Attended/TENS: C3 and C7 Patient Position: Prone Current: 10 Hz Channels: 1-2, 3-4 Intensity: Ch 1-2 3.0 V, Ch 3-4 3.0 V Minutes: 10 Skilled Intervention: Proper administration and selection of modality based on clinical presentation, deficits, and needs. Patient response monitored throughout treatment. Billing Manual TherapyTreatment Minutes: 32 E- Stim Attended/TENS Treatment Minutes: 10 Skilled Treatment Time Minutes (timed and untimed codes): 42 Total Session Time (minutes): 42 Session Start Time : 1218 Session Stop Time : 1300 Beatriz Melissa PT documented in this encounter [facility] 01-25-2025 Telephone encounter Note Ambulatory Pharmacy Prior Authorization Note Provider Intervention Required?: Yes- [facility] requires prior authorization to be submitted by the provider. [facility] Form (Prescription Drug Formulary) Drug: dihydroergotamine (TRUDHESA) 0.725 mg/pump act. (4 mg/mL) nasal spray Formulary Alternatives: N/A Additional Information: n/a Please fax completed paperwork to [phone] or email to [email or web address]. [facility] cannot process prior authorizations sent via CoverMyMeds. For questions relating to this submission, please contact [facility] at [phone] [facility] 01-25-2025 Miscellaneous Notes Ambulatory Pharmacy Prior Authorization Note Provider Intervention Required?: Yes- [facility] requires prior authorization to be submitted by the provider. [facility] Form (Prescription Drug Formulary) Drug: dihydroergotamine (TRUDHESA) 0.725 mg/pump act. (4 mg/mL) nasal spray Formulary Alternatives: N/A Additional Information: n/a Please fax completed paperwork to [phone] or email to [facility] [email or web address]. [facility] cannot process prior authorizations sent via CoverMyMeds. For questions relating to this submission, please contact [facility] at [phone] documented in this encounter [facility] 01-18-2025 Note HNO ID: [id number] Author: BEATRIZ MELISSA PT Service: ? Author Type: Physical Therapist Type: Progress Notes Filed: 01/18/2025 13:35 Note Text: Episode Visit Count: 5 Therapist That Will Accept/Oversee The Plan Of Care: Beatriz Melissa Start of Care Date: 09/07/24 Onset Date: 12/01/23 REHABILITATION AND SPORTS THERAPY PHYSICAL THERAPY TREATMENT NOTE ASSESSMENT: Kira Adhikari tolerated the session with decreased symptoms. She demonstrated improvements in neck pain and tolerance for exercises. The patient will continue to benefit from ongoing skilled physical therapy to progress toward set goals. PLAN FOR NEXT VISIT: Continue manual as needed, may try scar tissue desensitization SUBJECTIVE: Patient notes neck is doing better this week. Exercises really feel like they are targeting the areas she needed them to Pain: Pain Pain Level: 5 Pain Location: Neck Description: Aching, Sore, Tightness Frequency: Continuous OBJECTIVE MEASURES WITH LEVEL OF FUNCTION: NGUYEN reproduced with palpation to R upper trap, B SCM, and cervical paraspinals TREATMENT: Manual Therapy: 1: STM, CFM to R upper trap and B SCM with push to tolerance Dry Needling: (1) 30 mm needle to R upper trap with pistoning and fanning; (1) 30 and 40 mm needle to B C3 and C7 paraspinals in clock techniques plus TENS- see perameters below Skilled Intervention: Manual skills to improve joint mobility, ROM, and decrease pain. Utilized anatomy knowledge of the therapist, and assessment of patient's response to intervention. Modalities: Body Region Treated - E-Stim Attended/TENS: C3 and C7 Patient Position: Prone Current: 10 Hz Channels: 1-2, 3-4 Intensity: Ch 1-2 3.5 V, Ch 3-4 4.0 V Minutes: 10 Skilled Intervention: Proper administration and selection of modality based on clinical presentation, deficits, and needs. Patient response monitored throughout treatment. Billing Manual TherapyTreatment Minutes: 30 E- Stim Attended/TENS Treatment Minutes: 10 Skilled Treatment Time Minutes (timed and untimed codes): 40 Total Session Time (minutes): 40 Session Start Time : 1205 Session Stop Time : 1245 Beatriz Melissa PT [facility] 01-18-2025 History of Present illness Narrative Episode Visit Count: 5 Therapist That Will Accept/Oversee The Plan Of Care: Beatriz Melissa Start of Care Date: 09/07/24 Onset Date: 12/01/23 REHABILITATION AND SPORTS THERAPY PHYSICAL THERAPY TREATMENT NOTE ASSESSMENT: Kira Adhikari tolerated the session with decreased symptoms. She demonstrated improvements in neck pain and tolerance for exercises. The patient will continue to benefit from ongoing skilled physical therapy to progress toward set goals. PLAN FOR NEXT VISIT: Continue manual as needed, may try scar tissue desensitization SUBJECTIVE: Patient notes neck is doing better this week. Exercises really feel like they are targeting the areas she needed them to Pain: Pain Pain Level: 5 Pain Location: Neck Description: Aching, Sore, Tightness Frequency: Continuous OBJECTIVE MEASURES WITH LEVEL OF FUNCTION: NGUYEN reproduced with palpation to R upper trap, B SCM, and cervical paraspinals TREATMENT: Manual Therapy: 1: STM, CFM to R upper trap and B SCM with push to tolerance Dry Needling: (1) 30 mm needle to R upper trap with pistoning and fanning; (1) 30 and 40 mm needle to B C3 and C7 paraspinals in clock techniques plus TENS- see perameters below Skilled Intervention: Manual skills to improve joint mobility, ROM, and decrease pain. Utilized anatomy knowledge of the therapist, and assessment of patient's response to intervention. Modalities: Body Region Treated - E-Stim Attended/TENS: C3 and C7 Patient Position: Prone Current: 10 Hz Channels: 1-2, 3-4 Intensity: Ch 1-2 3.5 V, Ch 3-4 4.0 V Minutes: 10 Skilled Intervention: Proper administration and selection of modality based on clinical presentation, deficits, and needs. Patient response monitored throughout treatment. Billing Manual TherapyTreatment Minutes: 30 E- Stim Attended/TENS Treatment Minutes: 10 Skilled Treatment Time Minutes (timed and untimed codes): 40 Total Session Time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 and simponi x4 weeks, resumed on 06/26/23 - In Jul, arava increased to 20mg/day - In Aug, reported she was doing well, healing from surgery. Combo of arava 20mg/day and simponi injections had helped. Hands were flaring a bit the prior week with the weather change. Went back to work the prior week - In May, reported things were going really well. The prior 2 weeks had been the most major flare she had had, burning in bilateral PIPs and swelling of the toes. Hard to make pincher grasp. Still felt like this had been the best combo of meds she's ever had. With a cervical disc herniation, currently on a medrol dose pack for that - In Aug, reported feeling poorly with the back pain returning and increased joint pain along with fatigue. With neuropathy symptoms of the feet. Simponi with neuropathy listed as a potential SE. Advised to stop simponi and start orencia - In Oct, started orencia. The first 4 weeks, with increased headache. - Today, reports taking 7th orencia injection this week. With increased low back pain off simponi. No change with activity. Worst in morning and while laying in bed throughout the night. Feels very stiff while sitting for a period of time. With pain of the hands along with decreased dexterity, no swelling. Remains on arava - No current PT for the low back, has done this a lot in the past without improvement. Is doing PT for the upper back. 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 Lichen sclerosis PAST SURGICAL HISTORY Procedure Laterality Date CONIZATION OF CERVIX, LEEP NECK SURGERY HX 08/19/2016 Left C7 foraminotomy, Left C6-7 diskectomy - w/ benefit though continues to have pain (left side of neck, shooting pains in arm, left wrist and distal numbness) PAST SURGICAL HISTORY OF at age of 6 years left inguinal hernia repair PAST SURGICAL HISTORY OF Tonsillectomy ALLERGIES Allergen Reactions Dilaudid [Hydromorp* Itching Fentanyl Itching Sulfa (Sulfonamide * Rash MEDICATIONS: Current Outpatient Medications Medication Sig fremanezumab-vfrm (AJOVY AUTOINJECTOR) 225 mg/1.5 mL auto-injector Inject 4.5 mL under the skin every 3 months. dihydroergotamine (TRUDHESA) 0.725 mg/pump act. (4 mg/mL) nasal spray Prime with 4 pumps before use. 1 spray in each nostril at migraine onset. May repeat once in 1 hour if needed. No more than 2 doses/24 hours and 3 doses/week. A complete dose is 2 sprays: 1 spray in each nostril. carisoprodol (SOMA) 350 mg tablet Take 1 tablet by mouth three times a day as needed for up to 30 days. FOR PAIN OR MUSCLE SPASMS. predniSONE (DELTASONE) 10 mg tablet Take 3 tablets by mouth daily for 1 week, then 2 tablets daily by mouth for 1 week , then 1 tablet by mouth daily for 1 week, then stop. Please take with food. valACYclovir (VALTREX) 1 gram tablet Take 1 tablet by mouth once daily. buPROPion SR (WELLBUTRIN SR) 150 mg 12 hr tablet Take 1 tablet by mouth two times a day. leflunomide (ARAVA) 20 mg tablet TAKE 1 TABLET BY MOUTH EVERY DAY phenazopyridine (PYRIDIUM) 200 mg tablet Take 1 tablet by mouth three times a day as needed (for UTI symptoms). rosuvastatin (CRESTOR) 5 mg tablet Take 1 tablet by mouth once daily. phenazopyridine (PYRIDIUM) 200 mg tablet Take 1 tablet by mouth three times a day as needed. abatacept (ORENCIA CLICKJECT) 125 mg/mL auto-injector Inject 125mg (1 pen) subcutaneously one time a week. tirzepatide (MOUNJARO) 15 mg/0.5 mL pen injector Inject 15 mg subcutaneously one time a week. Diclofenac Potassium (CAMBIA) 50 mg pwpk Take 1 Packet by mouth as needed for migraine headache. Can repeat dose in 2 hours, no more than 2 doses per day, or 2 days per week Sghekmdm1-Kmhive9-Ygbht therm. (VSL#3) 112.5 billion cell cap Take 2 capsules by mouth daily at bedtime. ondansetron (ZOFRAN) 4 mg tablet Take 1 tablet by mouth every 12 hours as needed for nausea/vomiting. clobetasol (TEMOVATE) 0.05 % ointment Apply 1 application to affected area two times a day. Magnesium Citrate 150mg (Pure Encapsulations) Take 4 capsules daily. riboflavin, vitamin B2, (VITAMIN B-2) 100 mg tab Take 4 tablets by mouth once daily. coenzyme Q10 (COQ-10) 100 mg cap capsule Take 1 capsule by mouth twice daily. vitamin D3-folic acid 5,000 unit- 1 mg tab Take 5,000 Units by mouth once daily. multivitamin tablet Take 1 tablet by mouth once daily. No current facility-administered medications for this visit. FAMILY HISTORY: paternal aunt- currently undergoing RA evaluation, maternal uncles x2, maternal cousin-ankylosing spondylitis SOCIAL HISTORY: Lives in [place] with spouse with 2 kids, 10 yo and 13 yo (planning to foster to adopt). On 11/15/21, got a Kourtney to foster who she is on track to adopt (also adopting the biological mother who has intellectual difficulty), officially adopted per May visit. 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 Tobacco use: None Alcohol use: None since Aug Drug use: None REVIEW OF SYSTEMS: reviewed 09/13 systems, as above PHYSICAL EXAM: CONSTITUTIONAL: Well-appearing, in NAD. SKIN: No rash. No alopecia. *January Widespread Pain Index: 17 (0-19) Symptoms Severity Scale: 8 (0-12) WPI>7 and SS Scale>5 OR WPI 3-6 and SS Scale >9 consistent with fibromyalgia LABORATORY: Latest Ref [facility] 01/06/2025 WBC 3.70 - 11.00 k/uL 4.16 RBC 3.90 - 5.20 m/uL 4.73 Hemoglobin 11.5 - 15.5 g/dL 14.9 Platelet Count 150 - 400 k/uL 170 Bilirubin, Total 0.2 - 1.3 mg/dL 0.4 Alkaline Phosphatase 34 - 123 U/L 45 AST 13 - 35 U/L 31 ALT 7 - 38 U/L 14 Glucose 74 - 99 mg/dL 90 BUN 7 - 21 mg/dL 12 Creatinine 0.58 - 0.96 mg/dL 0.76 Sodium 136 - 144 mmol/L 140 Potassium 3.7 - 5.1 mmol/L 4.3 Chloride 98 - 107 mmol/L 102 CO2 22 - 30 mmol/L 23 Anion Gap 8 - 15 mmol/L 15 eGFR >=60 mL/min/1.73m 102 CRP <0.9 mg/dL <0.3 WSR 0 - 20 mm/hr *Aug neg quant gold Component Latest Ref Rng & Units 07/17/2022 TB Nil <=8.00 IU/mL 0.01 TB1 Ag minus Nil <0.35 IU/mL 0.05 TB2 Ag minus Nil <0.35 IU/mL 0.05 TB Result Negative Mitogen minus Nil >=0.50 IU/mL >9.99 CRP <0.9 mg/dL WSR 0 - 20 mm/hr HLA-B27 DNA Result Negative Component Latest Ref Rng & Units 11/01/2020 Sm Antibody <1.0 AI <0.2 BRUSH FILLER HAND Antibody <1.0 AI 0.2 SSA Antibody <1.0 AI <0.2 SSB Antibody <1.0 AI <0.2 Centromere Ab <1.0 AI <0.2 Scleroderma Ab, IgG <1.0 AI <0.2 Debbie 1 Antibody <1.0 AI <0.2 Ribosomal BRUSH FILLER HAND <1.0 AI <0.2 Chromatin Antibody <1.0 AI <0.2 SEA by EIA, Qual Negative Negative SEA by EIA OD Ratio 0.2 CCP Antibody, IgG <20 Units <15 Rheumatoid Factor <16 IU/mL <10 Anti-SSA <1.0 AI <0.2 Anti-SSB <1.0 AI <0.2 CRP <0.9 mg/dL 0.4 CK 42 - 196 U/L 136 Vitamin D 25 Hydroxy 31.0 - 80.0 ng/mL 34.8 Endomysial Ab, IgA <1:10 <1:10 Component Latest Ref Rng & Units 01/23/2021 Gliadin Ab, IgA <20 Units 7 Gliadin Ab, IgG <20 Units 2 Transglutaminase Ab, IgG <20 Units 3 Transglutaminase Ab, IgA <20 Units 4 Component Latest Ref Rng & Units 02/03/2020 Sm Antibody <1.0 AI <0.2 BRUSH FILLER HAND Antibody <1.0 AI 0.2 SSA Antibody <1.0 AI <0.2 SSB Antibody <1.0 AI <0.2 Centromere Ab <1.0 AI <0.2 Scleroderma Ab, IgG <1.0 AI <0.2 Debbie 1 Antibody <1.0 AI <0.2 Ribosomal BRUSH FILLER HAND <1.0 AI <0.2 Chromatin Antibody <1.0 AI <0.2 SEA Negative Negative SEA Titer Negative Negative SEA Pattern Not applicable for negative result. IgA 78 - 391 mg/dL 289 Transglutaminase Ab, IgA <20 Units 4 Interpretation (Celiac Screen) No serologic evidence of celiac disease. No serologic evidence of celiac disease. UltraSens C-Reactive Protein <3.1 mg/L 1.6 WSR 0 - 20 mm/hr 8 Rheumatoid Factor <16 IU/mL <10 STUDIES: *Jul xray SI joints- Findings concerning for right hip cam type impingement. *January xray hands/SI joints- unremarkable *Jan MRI brain- No evidence for focal acute brain ischemia, mass effect, abnormal enhancement, or mastoid/middle ear inflammatory disease. No abnormal enhancement involving lower cranial nerves. Gross brain volume and morphology is within expected limits for age. Based on the axial T2 flow void pattern, proximal intracranial arterial vasculature, major cortical draining veins, and dural venous sinuses are patent. Concordant findings on the post gadolinium scans. *Oct MRI C-spine- Postop changes. Mild left bony foraminal stenosis at C6-7. Suspicion of mild epidural scar formation in the left C7-T1 neural foramen from a prior foraminotomy. No evidence of recurrent disc protrusion. IMPRESSION and PLAN: 1. Inflammatory arthritis: With steroid-responsive wrist, MCP and PIP pain along with fatigue, synovitis of the MCPs and PIPs in the past and negative serologies. Also with steroid responsive back/SI joint pain (separate from L hip CAM pain). Sulfa allergy. Has tried: HCQ (dizziness and tremors), MTX (ineffective), Humira (lost efficacy despite initial significant improvement), and enbrel (ineffective). Simponi IV with improvement (first dose in Jul), switched to SC in March with initial improvement, lost efficacy over time. Arava with improvement. Nearing the end of the 2nd month of orencia SC. Tolerating orencia better, no clear improvement in joint pain with this yet and actually having increased low back pain since switching from simponi to orencia - Continue arava 20mg/day along with routine lab monitoring, due March - Continue orencia 125mg SC weekly. Will allow for more time on the medication to note the true/full efficacy. - If no improvement by next visit in 8 weeks and depending on the ongoing symptoms, will pursue further imaging including MRI SI joints to assess for sacroiliitis and US testing of the wrists/hands/ankles/feet to assess for synovitis. - If orencia ineffective and inflammatory arthritis is considered active in the future, consider cosentyx for ankylosing spondylitis (SI/back pain, FHx of ankylosing spondylitis) 2. Migraine, chronic pain and cervical spine pain: Separate issues from the inflammatory arthritis - Continue PT, PCP, functional medicine and neurology management 3. 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 General health maintenance: - Doesn't plan on getting covid vaccine, has a adventist exemption - Advised to continue follow-up with PCP for routine health maintenance and malignancy screening Follow-up in 4 months with me (no SUPERVISOR STONE) or sooner if needed. Patient was instructed to call if any questions or concerns. Thank you for allowing me to participate in the care of your patient. Ajit Torre MD documented in this encounter [facility] 01-12-2025 Telephone encounter Note Pharmacist Managed Refill Encounter Name: Kira Adhikari Refill authorization request(s) received and reviewed under effective consult agreement. The patient consented to the pharmacy service and agreed to allow medications to be collaboratively managed by the pharmacist. The patient may decline or cancel the agreement at any time. Upon review, it was confirmed that an active patient-provider relationship exists, and the prescriber is a participating physician under the consult agreement. Last office visit in this department: Visit date not found Last distance health visit in this department: 12/30/2024 Sunil Owen DO Next appointment in this department: 04/06/2025 Sunil Owen DO Requested Prescriptions Signed Prescriptions Disp Refills fremanezumab-vfrm (AJOVY AUTOINJECTOR) 225 mg/1.5 mL auto-injector 4.5 mL 3 Sig: Inject 4.5 mL under the skin every 3 months. Authorizing Provider: SUNIL OWEN Ordering User: ZI CARRANZA The medication(s) fall under category 1: No barriers to continued therapy exist. # of refills approved in this encounter: 1 Zi Carranza RPh [facility] 01-12-2025 Miscellaneous Notes Pharmacist Managed Refill Encounter Name: Kira Adhikari Refill authorization request(s) received and reviewed under effective consult agreement. The patient consented to the pharmacy service and agreed to allow medications to be collaboratively managed by the pharmacist. The patient may decline or cancel the agreement at any time. Upon review, it was confirmed that an active patient-provider relationship exists, and the prescriber is a participating physician under the consult agreement. Last office visit in this department: Visit date not found Last [facility] visit in this department: 12/30/2024 Sunil Owen DO Next appointment in this department: 04/06/2025 Sunil Owen DO Requested Prescriptions Signed Prescriptions Disp Refills fremanezumab-vfrm (AJOVY AUTOINJECTOR) 225 mg/1.5 mL auto-injector 4.5 mL 3 Sig: Inject 4.5 mL under the skin every 3 months. Authorizing Provider: SUNIL OWEN Ordering User: ZI CARRANZA The medication(s) fall under category 1: No barriers to continued therapy exist. # of refills approved in this encounter: 1 Zi Carranza RPh documented in this encounter [facility] 01-11-2025 Telephone encounter Note Ambulatory Pharmacy Prior Authorization Note Provider Intervention Required?: No- Pharmacy completed on your behalf. Rx Plan: EHP Drug: AJOVY Cover My Meds [place]: N/A Determination: Approved Prior Authorization/Case #: [id number] Prior Authorization Expiration: 01/10/2026 Time to PA Submission in CMM: N/A Time to PA Determination in CMM: N/A Additional Information: PLEASE NOTE: Pt will need follow up office visit to review/document efficacy and tolerability of treatment before prior auth expiration. Please ensure a future follow up appt is scheduled with your patient. This will ensure no interruption in patient's ability to obtain medication refills. Prescriptions will now be processed through [facility] for determination of next steps. For questions relating to this submission, please contact [facility] at [phone] [facility] 01-11-2025 Miscellaneous Notes Ambulatory Pharmacy Prior Authorization Note Provider Intervention Required?: No- Pharmacy completed on your behalf. Rx Plan: EHP Drug: AJOVY Cover My Meds King: N/A Determination: Approved Prior Authorization/Case #: [id number] Prior Authorization Expiration: 01/10/2026 Time to PA Submission in CMM: N/A Time to PA Determination in CMM: N/A Additional Information: PLEASE NOTE: Pt will need follow up office visit to review/document efficacy and tolerability of treatment before prior auth expiration. Please ensure a future follow up appt is scheduled with your patient. This will ensure no interruption in patient's ability to obtain medication refills. Prescriptions will now be processed through [facility] for determination of next steps. For questions relating to this submission, please contact [facility] at [phone] [facility] received prescription(s) for ajovy. Benefits investigation was conducted, indicating that a prior authorization is required. All pertinent clinical information was submitted to insurance. Epic- Referral # [id number] Ordering Provider: Sunil Owen DO Murtaugh, Alisha, RN [facility] P: , F: documented in this encounter [facility] 01-07-2025 Telephone encounter Note [facility] received prescription(s) for ajovy. Benefits investigation was conducted, indicating that a prior authorization is required. All pertinent clinical information was submitted to insurance. Epic- Referral # [id number] Ordering Provider: Sunil Owen DO Murtaugh, Alisha, RN [facility] P: , F: [facility] Work Phone: 01-06-2025 History of Present illness Narrative Radiology Service Progress Note DATE OF SERVICE: January 06, 2025 TIME: 10:57 AM PATIENT IDENTITY VERIFICATION COMPLETED USING TWO (2) STANDARD IDENTIFIERS: Name and Date of confirmed by patient verbally. FALL SCREENING: Has the patient had 2 falls in the last year or 1 fall with injury or currently using an Ambulatory Assistive Device (Walker, Cane, Wheelchair, Crutches, etc.)? No PATIENT GENDER DATA: Assigned female at . status: : No status: NO. PATIENT RELEVANT IMPLANT DATA REVIEWED: Yes PATIENT PRESENTS WITH AN IMPLANTABLE OR ATTACHED CORE DRILL OPERATOR HELPER: No ALLERGIES: Reviewed and unchanged CONTRAST ALLERGY: NO. EXAM: MRI - CONTRAST TYPE: GROUP II PERIPHERAL IV DATA: Ambulatory: A peripheral IV was started in the Left antecubital site with a Angio cath: 22 gauge. RADIOLOGY DEPARTMENT: MR; Exam(s) Completed: Head: Routine Brain SIGNATURE: RT Claudia(R) PATIENT NAME: Kira Adhikari DATE: January 06, 2025 TIME: 10:57 AM documented in this encounter [facility] 01-06-2025 Note HNO ID: [id number] Author: KVNG HOU RT(R) Service: ? Author Type: Technologist Type: Progress Notes Filed: 01/06/2025 11:01 Note Text: Radiology Service Progress Note DATE OF SERVICE: January 06, 2025 TIME: 10:57 AM PATIENT IDENTITY VERIFICATION COMPLETED USING TWO (2) STANDARD IDENTIFIERS: Name and Date of confirmed by patient verbally. FALL SCREENING: Has the patient had 2 falls in the last year or 1 fall with injury or currently using an Ambulatory Assistive Device (Walker, Cane, Wheelchair, Crutches, etc.)? No PATIENT GENDER DATA: Assigned female at . status: : No status: NO. PATIENT RELEVANT IMPLANT DATA REVIEWED: Yes PATIENT PRESENTS WITH AN IMPLANTABLE OR ATTACHED CORE DRILL OPERATOR HELPER: No ALLERGIES: Reviewed and unchanged CONTRAST ALLERGY: NO. EXAM: MRI - CONTRAST TYPE: GROUP II PERIPHERAL IV DATA: Ambulatory: A peripheral IV was started in the Left antecubital site with a Angio cath: 22 gauge. RADIOLOGY DEPARTMENT: MR; Exam(s) Completed: Head: Routine Brain SIGNATURE: Kvng Hou, RT(R) PATIENT NAME: Kira Adhikari DATE: January 06, 2025 TIME: 10:57 AM [facility] 01-06-2025 History of Present illness Narrative Radiology Service Progress Note PATIENT NAME: Kira Adhikari DATE OF SERVICE: January 06, 2025 TIME: 9:37 AM PATIENT IDENTITY VERIFICATION COMPLETED USING TWO (2) IDENTIFIERS: Name and Date of confirmed by patient verbally. FALL SCREENING: Has the patient had 2 falls in the last year or 1 fall with injury or currently using an Ambulatory Assistive Device (Walker, Cane, Wheelchair, Crutches, etc.)? No PATIENT GENDER DATA: Assigned female at . status: : No status: NO. PATIENT RELEVANT IMPLANT DATA REVIEWED: Not Applicable PATIENT PRESENTS WITH AN IMPLANTABLE OR ATTACHED CORE DRILL OPERATOR HELPER: No RADIOLOGY DEPARTMENT: Mammography PERIPHERAL IV DATA: Not applicable SIGNED BY: Monalisa Alexander January 06, 2025 9:37 AM documented in this encounter [facility] 01-06-2025 Note HNO ID: [id number] Author: SUE BAIRD Mammo Tech Service: ? Author Type: 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 Type: Progress Notes Filed: 01/06/2025 09:38 Note Text: Radiology Service Progress Note PATIENT NAME: Kira Adhikari DATE OF SERVICE: January 06, 2025 TIME: 9:37 AM PATIENT IDENTITY VERIFICATION COMPLETED USING TWO (2) IDENTIFIERS: Name and Date of confirmed by patient verbally. FALL SCREENING: Has the patient had 2 falls in the last year or 1 fall with injury or currently using an Ambulatory Assistive Device (Walker, Cane, Wheelchair, Crutches, etc.)? No PATIENT GENDER DATA: Assigned female at . status: : No status: NO. PATIENT RELEVANT IMPLANT DATA REVIEWED: Not Applicable PATIENT PRESENTS WITH AN IMPLANTABLE OR ATTACHED CORE DRILL OPERATOR HELPER: No RADIOLOGY DEPARTMENT: Mammography PERIPHERAL IV DATA: Not applicable SIGNED BY: Sue Baird [employer] Ned January 06, 2025 9:37 AM [facility] 12-31-2024 Telephone encounter Note Botox referral sent to pharmacy. Cherelle Locke RN [facility] 12-31-2024 Miscellaneous Notes Botox referral sent to pharmacy. Cherelle Locke RN documented in this encounter [facility] 12-30-2024 History of Present illness Narrative Images from the original note were not included. [facility]ache Center - VIRTUAL Follow-up Visit ASSESSMENT: 39 year old female with history significant for migraine with aura, chronic migraine, PCOS, TMD, cervical disk herniation, neck pain, autoimmune arthritis, with variable cycles of high frequency episodic migraine and chronic migraine with contributions from occipital neuralgia and cervicogenic headache. PLAN: (Please see typed patient instructions for detailed instructions) ---> Acute Treatment: -Cambia helps. Generic diclofenac was not effective. -Trudhesa DHE ns trial since no benefit with triptans, gepants, or ditans. -Soma instead of Methocarbamol since it was more helpful in the past. ---> Preventive Treatment: -Continue Ajovy quarterly. She feels this has helped. -Resend for Botox in hopes of using with Ajovy for synergistic benefit, which is supported by published evidence based medicine. I recommended at least 2 consecutive rounds with me with a more optimal pattern including extra over the occipital nerves. ---> Follow-up: for BOTOX. We will get a precert for Onabotulinum Toxin A using the PREEMPT protocol. This patient meets FDA criteria for Chronic Migraine without aura, without mention of intractable migraine without mention of status migrainosus. The migraine lasts for greater than 4 hours and has been chronic for more than three months. Onabotulinum Toxin A is FDA approved for chronic migraine. Her headaches are associated with photophobia, phonophobia, nausea for three or more months. Patient will use in conjunction with CGRP preventive medications (if permitted, for synergistic benefit). Medication overuse, alternate diagnosis, confounding psychiatric or social stresses have been ruled out as the cause of headaches. Severity: moderate to severe Quality: throbbing Migraine days a month: 14 Headache days a month: 16 Total Headache days a month: 30 Headache free days a month: 0 The following preventative medications have been tried for at least three months without benefit or discontinued due to side effects: Anti-Convulsant Divalproex sodium (Depakote) Pregabalin (Lyrica) Topiramate (Topamax, Trokendi XL, Qudexy) no benefit Anti-Depressant and Antipsychotic Bupropion (Wellbutrin) Duloxetine (Cymbalta) Nortriptyline (Pamelor, Aventyl) Blood Pressure Metoprolol (Lopressor,Toprol XL) Propranolol (Inderal) initial benefit GEPANTS Atogepant MABs Erenumab (Aimovig) Fremanezumab (Ajovy) Botulinum Toxin Onabotulinum Toxin A (Botox), Onabotulimum Toxin A (Botox) 6 years loss of efficacy, done with gen neuro outside of center Supplements CoQ10 Magnesium Riboflavin The following abortive medications have been tried but require high frequency use which can lead to Medication Overuse Headache: Analgesic Diclofenac (Voltaren, Cataflam, Cambia) Cambia works well. Generic diclofenac is not effective Indomethacin (Indocin) no benefit Ketorolac (Toradol) no benefit Meperidine (Demerol) Morphine (Mellissa, Ms Contin) Oxycodone Oxycodone/Acetaminophen (Percocet) Anti-Anxiety Diazepam (Valium) Anti-Migraine Lasmiditan (Reyvow) Rizatriptan (Maxalt) ineffective Sumatriptan (Imitrex, Sumavel) ineffective GEPANTS Ubrogepant (Ubrelvy) Rimegepant (Nurtec) no benefit Over the Counter Medications Acetaminophen (Tylenol) Acetaminophen/Aspirin/Caffeine (Excedrin, Goody s) Aspirin Ibuprofen (Advil, Motrin) Naproxen sodium (Aleve) The patient has been assessed for disorders which could contribute to breathing or swallowing difficulty, and there is no contraindication with PREEMPT Botox. There is no documented allergic reaction/hypersensitivity to any botulinum toxin and there is no active infection at proposed injection site Kira Trejo Jay Jay has been previously approved for Calcitonin Gene Related Peptide Monoclonal Antibody (CGRP MAB) (Fremanezumab). The patient has demonstrated the following: Patient reduction in overall migraine days: Yes Patient reduction in moderate-severe migraine days: Yes Individual has obtained clinical benefit deemed significant by individual or prescriber: Yes Patient's quality of life and ability to perform ADLs has improved: Yes We suggest the patient continue treatment with CGRP MAB Fremanezumab. The following preventative medications have been tried for three or more months without benefit: Anti-Convulsant Divalproex sodium (Depakote) Pregabalin (Lyrica) Topiramate (Topamax, Trokendi XL, Qudexy) no benefit Anti-Depressant and Antipsychotic Bupropion (Wellbutrin) Duloxetine (Cymbalta) Nortriptyline (Pamelor, Aventyl) Blood Pressure Metoprolol (Lopressor,Toprol XL) Propranolol (Inderal) initial benefit GEPANTS Atogepant MABs Erenumab (Aimovig) Fremanezumab (Ajovy) Botulinum Toxin Onabotulinum Toxin A (Botox), Onabotulimum Toxin A (Botox) 6 years loss of efficacy, done with gen neuro outside of center Supplements CoQ10 Magnesium Riboflavin The following abortive medications have been tried but require high frequency use which can lead to Medication Overuse Headache: Analgesic Diclofenac (Voltaren, Cataflam, Cambia) Cambia works well. Generic diclofenac is not effective Indomethacin (Indocin) no benefit Ketorolac (Toradol) no benefit Meperidine (Demerol) Morphine (Mellissa, Ms Contin) Oxycodone Oxycodone/Acetaminophen (Percocet) Anti-Anxiety Diazepam (Valium) Anti-Migraine Lasmiditan (Reyvow) Rizatriptan (Maxalt) ineffective Sumatriptan (Imitrex, Sumavel) ineffective GEPANTS Ubrogepant (Ubrelvy) Rimegepant (Nurtec) no benefit Over the Counter Medications Acetaminophen (Tylenol) Acetaminophen/Aspirin/Caffeine (Excedrin, Goody s) Aspirin Ibuprofen (Advil, Motrin) Naproxen sodium (Aleve) -------- Last visit: 07/22/23 with me 01/02/24 with ROSA wit Botox Interval Headache Hx: 30 overall headache days per month which includes variable migraine days per month. Has been getting cervical epidural injections for worsening cervical disk herniation and this is adding to her pain. Had a flare of headache and neck pain for about a month which recently let up. New Labs/Imaging: n/a HEADACHE SCORES: 01/09/2023 07/21/2023 01/01/2024 Headache Questions ID Migraine Screener: 3 (Positive) ER visits in the last year: 2 ER visits since last office visit: 0 0 Hospital stays in the last year: 0 Hospital stays since last office visit 0 0 Limited ADLs in the last month: 3 5 12 Days missed from work or school in the last month: 0 0 0 Days headache pain free in the last month: 20 25 3 Days per month with ALL of the following symptoms - decreased productivity, light sensitivity and nausea: 1 3 2 Initial improvement of headache after botox injection at last visit: Not applicable, I did not have a botox injection at my last visit Not applicable, I did not have a botox injection at my last visit PRN medication usage in the last month: 10 4 10 Patient impression of improvement since last visit: Much improved No change 07/21/2023 01/01/2024 12/30/2024 HIT-6 HIT-6 65 (Severe impact) 63 (Severe impact) 67 (Severe impact) 07/21/2023 01/01/2024 12/30/2024 LETICIA - 2/7 SCORES LETICIA-2 Score 0 0 2 03/29/2021 05/22/2021 Pain Disability Index PDI Score 45 22 07/21/2023 01/01/2024 12/30/2024 Migraine Specific QOL - Higher scores indicate better HRQL Role Function-Restrictive Transformed Score (range: 0-100) 40 62.86 0 Role Function-Preventive Transformed Score (range: 0-100) 50 65 45 Emotional Function Transformed Score (range: 0-100) 46.67 73.33 0 07/21/2023 01/01/2024 12/30/2024 PHQ-9 Score 2 1 9 -------- MEDS: Current Outpatient Medications Medication Sig predniSONE (DELTASONE) 10 mg tablet Take 3 tablets by mouth daily for 1 week, then 2 tablets daily by mouth for 1 week , then 1 tablet by mouth daily for 1 week, then stop. Please take with food. valACYclovir (VALTREX) 1 gram tablet Take 1 tablet by mouth once daily. buPROPion SR (WELLBUTRIN SR) 150 mg 12 hr tablet Take 1 tablet by mouth two times a day. leflunomide (ARAVA) 20 mg tablet TAKE 1 TABLET BY MOUTH EVERY DAY phenazopyridine (PYRIDIUM) 200 mg tablet Take 1 tablet by mouth three times a day as needed (for UTI symptoms). rosuvastatin (CRESTOR) 5 mg tablet Take 1 tablet by mouth once daily. phenazopyridine (PYRIDIUM) 200 mg tablet Take 1 tablet by mouth three times a day as needed. abatacept (ORENCIA CLICKJECT) 125 mg/mL auto-injector Inject 125mg (1 pen) subcutaneously one time a week. tirzepatide (MOUNJARO) 15 mg/0.5 mL pen injector Inject 15 mg subcutaneously one time a week. methocarbamol (ROBAXIN) 750 mg tablet Take 1 tablet by mouth four times daily. Diclofenac Potassium (CAMBIA) 50 mg pwpk Take 1 Packet by mouth as needed for migraine headache. Can repeat dose in 2 hours, no more than 2 doses per day, or 2 days per week Nytckyfv2-Pvoutr7-Luqly therm. (VSL#3) 112.5 billion cell cap Take 2 capsules by mouth daily at bedtime. ondansetron (ZOFRAN) 4 mg tablet Take 1 tablet by mouth every 12 hours as needed for nausea/vomiting. fremanezumab-vfrm (AJOVY AUTOINJECTOR) 225 mg/1.5 mL auto-injector Inject 4.5 mL under the skin every 3 months. clobetasol (TEMOVATE) 0.05 % ointment Apply 1 application to affected area two times a day. ubrogepant (UBRELVY) 100 mg tablet Take 1 tablet by mouth at migraine onset. May repeat once in 2 hours as needed. Magnesium Citrate 150mg (Pure Encapsulations) Take 4 capsules daily. riboflavin, vitamin B2, (VITAMIN B-2) 100 mg tab Take 4 tablets by mouth once daily. coenzyme Q10 (COQ-10) 100 mg cap capsule Take 1 capsule by mouth twice daily. vitamin D3-folic acid 5,000 unit- 1 mg tab Take 5,000 Units by mouth once daily. multivitamin tablet Take 1 tablet by mouth once daily. No current facility-administered medications for this visit. Prior Therapies Duration of Use Dose Reason for Discontinuation Other Therapies Nerve blocks Physical therapy Analgesic Diclofenac (Voltaren, Cataflam, Cambia) Cambia works well. Generic diclofenac is not effective Indomethacin (Indocin) no benefit Ketorolac (Toradol) no benefit Meperidine (Demerol) Morphine (Mellissa, Ms Contin) Oxycodone Oxycodone/Acetaminophen (Percocet) Anti-Anxiety Diazepam (Valium) Anti-Convulsant Divalproex sodium (Depakote) Pregabalin (Lyrica) Topiramate (Topamax, Trokendi XL, Qudexy) no benefit Anti-Depressant and Antipsychotic Bupropion (Wellbutrin) Duloxetine (Cymbalta) Nortriptyline (Pamelor, Aventyl) Antiemetics Metoclopramide Ondansetron zofran Anti-Migraine Lasmiditan (Reyvow) Rizatriptan (Maxalt) ineffective Sumatriptan (Imitrex, Sumavel) ineffective Blood Pressure Metoprolol (Lopressor,Toprol XL) Propranolol (Inderal) initial benefit MABs Erenumab (Aimovig) Fremanezumab (Ajovy) GEPANTS Rimegepant (Nurtec) no benefit Botulinum Toxin Onabotulinum Toxin A (Botox), Onabotulimum Toxin A (Botox) 6 years loss of efficacy, done with gen neuro outside of center Muscle Relaxer Baclofen (Lioresal) ineffective Chlorzoxazone (Parafon Forte) Cyclobenzaprine (Flexeril) ineffective Metaxalone (Skelaxin) Methocarbamol (Robaxin) lost efficacy Supplements CoQ10 Magnesium Riboflavin Other Medications Cyproheptadine (Periactin) Dexamethasone (Decadron) Diphenhydramine (Benadryl) Methylprednisolone (Medrol) Prednisone Over the Counter Medications Acetaminophen (Tylenol) Acetaminophen/Aspirin/Caffeine (Excedrin, Goody s) Aspirin Ibuprofen (Advil, Motrin) Naproxen sodium (Aleve) Sunil Owen DO [facility] [place] Department of [facility] [address] [place] [address] Level of service: Est level 3 (20-29 min). Time spent 24 min on the day of service, which included preparing to see the patient, [id number] patient care, completing clinical documentation, obtaining and/or reviewing separately obtained history, counseling and educating the patient/family/caregiver, ordering medications, tests, or procedures, and communicating with other HCPs (not separately reported). Medical Decision Making: Medical Decision Making Level: 1 - N/A I have communicated my name and active licensure. The patient's identity and physical location were verified at the time of this visit. Either the patient or their legal care support representative has been informed of the risks and benefits of -- and alternatives to -- treatment through a remote evaluation and consents to proceed with the evaluation remotely. cc: David Kilgore [address] [place] [address] documented in this encounter [facility] 12-30-2024 Note HNO ID: [id number] Author: SUNIL OWEN DO Service: ? Author Type: Physician Type: Progress Notes Filed: 12/30/2024 13:30 Note Text: Headache Center - VIRTUAL Follow-up Visit ASSESSMENT: 39 year old female with history significant for migraine with aura, chronic migraine, PCOS, TMD, cervical disk herniation, neck pain, autoimmune arthritis, with variable cycles of high frequency episodic migraine and chronic migraine with contributions from occipital neuralgia and cervicogenic headache. PLAN: (Please see typed patient instructions for detailed instructions) ---> Acute Treatment: -Cambia helps. Generic diclofenac was not effective. -Trudhesa DHE ns trial since no benefit with triptans, gepants, or ditans. -Soma instead of Methocarbamol since it was more helpful in the past. ---> Preventive Treatment: -Continue Ajovy quarterly. She feels this has helped. -Resend for Botox in hopes of using with Ajovy for synergistic benefit, which is supported by published evidence based medicine. I recommended at least 2 consecutive rounds with me with a more optimal pattern including extra over the occipital nerves. ---> Follow-up: for BOTOX. We will get a precert for Onabotulinum Toxin A using the PREEMPT protocol. This patient meets FDA criteria for Chronic Migraine without aura, without mention of intractable migraine without mention of status migrainosus. The migraine lasts for greater than 4 hours and has been chronic for more than three months. Onabotulinum Toxin A is FDA approved for chronic migraine. Her headaches are associated with photophobia, phonophobia, nausea for three or more months. Patient will use in conjunction with CGRP preventive medications (if permitted, for synergistic benefit). Medication overuse, alternate diagnosis, confounding psychiatric or social stresses have been ruled out as the cause of headaches. Severity: moderate to severe Quality: throbbing Migraine days a month: 14 Headache days a month: 16 Total Headache days a month: 30 Headache free days a month: 0 The following preventative medications have been tried for at least three months without benefit or discontinued due to side effects: Anti-Convulsant Divalproex sodium (Depakote) Pregabalin (Lyrica) Topiramate (Topamax, Trokendi XL, Qudexy) no benefit Anti-Depressant and Antipsychotic Bupropion (Wellbutrin) Duloxetine (Cymbalta) Nortriptyline (Pamelor, Aventyl) Blood Pressure Metoprolol (Lopressor,Toprol XL) Propranolol (Inderal) initial benefit GEPANTS Atogepant MABs Erenumab (Aimovig) Fremanezumab (Ajovy) Botulinum Toxin Onabotulinum Toxin A (Botox), Onabotulimum Toxin A (Botox) 6 years loss of efficacy, done with gen neuro outside of center Supplements CoQ10 Magnesium Riboflavin The following abortive medications have been tried but require high frequency use which can lead to Medication Overuse Headache: Analgesic Diclofenac (Voltaren, Cataflam, Cambia) Cambia works well. Generic diclofenac is not effective Indomethacin (Indocin) no benefit Ketorolac (Toradol) no benefit Meperidine (Demerol) Morphine (Mellissa, Ms Contin) Oxycodone Oxycodone/Acetaminophen (Percocet) Anti-Anxiety Diazepam (Valium) Anti-Migraine Lasmiditan (Reyvow) Rizatriptan (Maxalt) ineffective Sumatriptan (Imitrex, Sumavel) ineffective GEPANTS Ubrogepant (Ubrelvy) Rimegepant (Nurtec) no benefit Over the Counter Medications Acetaminophen (Tylenol) Acetaminophen/Aspirin/Caffeine (Excedrin, Goody?s) Aspirin Ibuprofen (Advil, Motrin) Naproxen sodium (Aleve) The patient has been assessed for disorders which could contribute to breathing or swallowing difficulty, and there is no contraindication with PREEMPT Botox. There is no documented allergic reaction/hypersensitivity to any botulinum toxin and there is no active infection at proposed injection site Kira Adhikari has been previously approved for Calcitonin Gene Related Peptide Monoclonal Antibody (CGRP MAB) (Fremanezumab). The patient has demonstrated the following: Patient reduction in overall migraine days: Yes Patient reduction in moderate-severe migraine days: Yes Individual has obtained clinical benefit deemed significant by individual or prescriber: Yes Patient's quality of life and ability to perform ADLs has improved: Yes We suggest the patient continue treatment with CGRP MAB Fremanezumab. The following preventative medications have been tried for three or more months without benefit: Anti-Convulsant Divalproex sodium (Depakote) Pregabalin (Lyrica) Topiramate (Topamax, Trokendi XL, Qudexy) no benefit Anti-Depressant and Antipsychotic Bupropion (Wellbutrin) Duloxetine (Cymbalta) Nortriptyline (Pamelor, Aventyl) Blood Pressure Metoprolol (Lopressor,Toprol XL) Propranolol (Inderal) initial benefit GEPANTS Atogepant MABs Erenumab (Aimovig) Fremanezumab (Ajovy) Botuli (more content not included)... [facility] 12-29-2024 Telephone encounter Note Medication Mack PA renewal is required; however, there is no follow up office visit to review/document efficacy and tolerability on treatment to justify continuation of therapy. Please send new eRx after office visit to [facility] if plan to continue therapy thereafter. PA renewal will be held until then. Thank you! Tracy Funes RN [facility] P: , F: [facility] Work Phone: 12-29-2024 Miscellaneous Notes Medication Ajovy PA renewal is required; however, there is no follow up office visit to review/document efficacy and tolerability on treatment to justify continuation of therapy. Please send new eRx after office visit to [facility] if plan to continue therapy thereafter. PA renewal will be held until then. Thank you! Tracy Funes RN [facility] P: , F: documented in this encounter [facility] 12-28-2024 Telephone encounter Note Consult to GI ordered. Valocor Therapeuticst message sent. Roxanna Nunes PA-C [facility] 12-28-2024 Miscellaneous Notes Consult to GI ordered. MePIN / [employer] Inchart message sent. Roxanna Nunes PA-C documented in this encounter [facility] 12-23-2024 Telephone encounter Note Spoke with patient. Appointment on 05/18/2025 has been switched to a virtual visit per patient's request. Also, patient decided to keep her 09/28/2025 appointment as virtual visit. Moon Sin MA [facility] 12-23-2024 Miscellaneous Notes Spoke with patient. Appointment on 05/18/2025 has been switched to a virtual visit per patient's request. Also, patient decided to keep her 09/28/2025 appointment as virtual visit. Moon Sin MA documented in this encounter [facility] 12-23-2024 History of Present illness Narrative Orencia Renewal MIESHA was initiated via email and is pending review. Plan Name: [facility] Phone/ , opt [phone] Email: [email or web address] Timeline: URGENT Luis Santos ([facility]) [facility] FAX: Orencia Renewal PA was approved with details listed below. Plan Name: [facility] Phone/ , opt [phone] Email: [email or web address] PA reference number: [id number] Approval Dates: 12/23/2024 - 03/23/2025 Prescriptions will now be processed through [facility] for determination of next steps. Luis Santos ([facility]) [facility] FAX: [facility] Refill Assessment Medication(s): Orencia Patient's current medication list and adherence status to current therapy were reviewed by Specialty Pharmacy clinical pharmacist to identify any new drug interactions or non-compliance to therapy. Therapy continues to be appropriate for disease, patient response, and medical condition. Verification of therapeutic benefit and effectiveness with current therapy was completed. Adverse events, barriers in adherence, and side effects were assessed and addressed if applicable. Will proceed with refill with no changes in therapy - patient progressing towards achieving therapeutic goals based on medication-specific laboratory parameters, disease state markers and outcomes. Office/provider notes have been reviewed prior to dispensing the medication. Abatacept (Orencia) - CD80/CD86 of T cell - DMARD Monitor for signs/symptoms of infection and/or hypersensitivity reaction. Conduct hepatitis and tuberculosis screening prior to therapy initiation. Perform periodic skin examinations. In patients receiving abatacept for prophylaxis of acute ofwuv-skvfje-esqj disease following hematopoietic stem cell transplant, monitor for cytomegalovirus infection/reactivation for 6 months post-transplant; monitor for Daysi-Celis virus reactivation and for posttransplant lymphoproliferative disorder. Spirometry Data: Latest Ref Rng & Units 07/03/2021 Spirometry Data FVC PRE (L) L 3.43 FVC POST (L) L 3.50 FEV1 PRE (L) L 2.86 FEV1_POST (L) L 3.01 FEV1/FVC PRE (%) % 83 FEV1/FVC POST (%) % 86 GTK24-31% PRE (L/S) L/S 2.89 YPP66-95% POST (L/S) L/S 3.23 PEF PRE (L/S) L/S 5.44 PEF POST (L/S) L/S 5.16 HBsAg Date Value Ref Range Status 07/31/2021 Negative Negative Final Hep B Surface Ab, Qual Date Value Ref Range Status 07/31/2021 Positive (A) Negative Final Comment: These results are consistent with previous exposure and/or immunity to the hepatitis B virus antigen. Hep B Core Ab, Total Date Value Ref Range Status 07/31/2021 Negative Negative Final Hep C Antibody IA Date Value Ref Range Status 07/31/2021 Negative Negative Final TB Result Date Value Ref Range Status 09/07/2024 Negative Final Current Outpatient Medications on File Prior to Visit Medication Sig predniSONE (DELTASONE) 10 mg tablet Take 3 tablets by mouth daily for 1 week, then 2 tablets daily by mouth for 1 week , then 1 tablet by mouth daily for 1 week, then stop. Please take with food. valACYclovir (VALTREX) 1 gram tablet Take 1 tablet by mouth once daily. buPROPion SR (WELLBUTRIN SR) 150 mg 12 hr tablet Take 1 tablet by mouth two times a day. leflunomide (ARAVA) 20 mg tablet TAKE 1 TABLET BY MOUTH EVERY DAY phenazopyridine (PYRIDIUM) 200 mg tablet Take 1 tablet by mouth three times a day as needed (for UTI symptoms). rosuvastatin (CRESTOR) 5 mg tablet Take 1 tablet by mouth once daily. phenazopyridine (PYRIDIUM) 200 mg tablet Take 1 tablet by mouth three times a day as needed. abatacept (ORENCIA CLICKJECT) 125 mg/mL auto-injector Inject 125mg (1 pen) subcutaneously one time a week. tirzepatide (MOUNJARO) 15 mg/0.5 mL pen injector Inject 15 mg subcutaneously one time a week. methocarbamol (ROBAXIN) 750 mg tablet Take 1 tablet by mouth four times daily. Diclofenac Potassium (CAMBIA) 50 mg pwpk Take 1 Packet by mouth as needed for migraine headache. Can repeat dose in 2 hours, no more than 2 doses per day, or 2 days per week Zdzjowpn6-Ijtvec5-Dpvim therm. (VSL#3) 112.5 billion cell cap Take 2 capsules by mouth daily at bedtime. ondansetron (ZOFRAN) 4 mg tablet Take 1 tablet by mouth every 12 hours as needed for nausea/vomiting. metoprolol succinate ER (TOPROL XL) 25 mg 24 hr tablet Take 1 tablet by mouth daily at bedtime. fremanezumab-vfrm (AJOVY AUTOINJECTOR) 225 mg/1.5 mL auto-injector Inject 4.5 mL under the skin every 3 months. clobetasol (TEMOVATE) 0.05 % ointment Apply 1 application to affected area two times a day. ubrogepant (UBRELVY) 100 mg tablet Take 1 tablet by mouth at migraine onset. May repeat once in 2 hours as needed. Magnesium Citrate 150mg (Pure Encapsulations) Take 4 capsules daily. riboflavin, vitamin B2, (VITAMIN B-2) 100 mg tab Take 4 tablets by mouth once daily. coenzyme Q10 (COQ-10) 100 mg cap capsule Take 1 capsule by mouth twice daily. vitamin D3-folic acid 5,000 unit- 1 mg tab Take 5,000 Units by mouth once daily. multivitamin tablet Take 1 tablet by mouth once daily. No current facility-administered medications on file prior to visit. Canceled Appointments: Date Visit Type Provider Past Appointments Therapy Beatriz Melissa, PT Future Appointments Date Time Provider Department Center 12/30/2024 1:00 PM Sunil Owen DO [facility] 01/06/2025 9:30 AM SCREEN MAMMO [facility] RDXWS [place] 01/06/2025 10:00 AM MRI RADIO [facility] W[facility] (I-STAT/1.5T) RMRIWS [place] 01/06/2025 10:30 AM ECHOCARDIOGRAM WSTR CARDWS [place] 01/10/2025 8:15 AM Pharmacist, [facility]ty[facility] 2 SPCPHARMSVC None 01/12/2025 2:00 PM Ajit Torre MD [facility] Stro 01/13/2025 5:15 PM Shin, Beatriz, PT PTWS [place] 01/18/2025 12:30 PM Shin, Beatriz, PT PTWS [place] 01/25/2025 12:30 PM Shin, Beatriz, PT PTWS [place] 02/01/2025 12:30 PM Shin, Beatriz, PT PTWS [place] 02/08/2025 12:30 PM Shin, Beatriz, PT PTWS [place] 02/11/2025 8:50 AM EMG [address] [facility] (MAX WEIGHT: 850) NELWAD [facility] 02/15/2025 12:30 PM Shin, Beatriz, PT PTWS [place] 02/22/2025 11:30 AM Shin, Beatriz, PT PTWS [place] 03/01/2025 12:30 PM Shin, Beatriz, PT PTWS [place] 03/03/2025 8:30 AM Trung Salazar, OD OPHWOO [place] 05/18/2025 10:00 AM Ajit Torre MD [facility] 09/28/2025 2:00 PM Ajit Torre MD [facility] Carson Alvarado [facility] Clinical Pharmacist - Biologics: Allergy, Immunology, and Inflammatory [facility] ; Pool: P [facility] Pool #: [id number] 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 Med/dose confirmed: Yes Supplies needed: Sharps container, Alcohol swabs Missed doses: Yes Count of missed doses: 1 Reason for missed doses: PT did not rcv call for next del Estimated days supply on hand: 0 Next cycle/dose due: 12/24/24 Copay amount: 0 Payment confirmed: Yes Delivery method: FedEx Signature required: No Delivery address: [address] [place] [id number] Delivery date: 12/24/24 Questions or concerns for the pharmacist?: No Did you have any side effects believed to be related to this medication, that resulted in hospitalization?: No Current Outpatient Medications on File Prior to Visit Medication Sig predniSONE (DELTASONE) 10 mg tablet Take 3 tablets by mouth daily for 1 week, then 2 tablets daily by mouth for 1 week , then 1 tablet by mouth daily for 1 week, then stop. Please take with food. valACYclovir (VALTREX) 1 gram tablet Take 1 tablet by mouth once daily. buPROPion SR (WELLBUTRIN SR) 150 mg 12 hr tablet Take 1 tablet by mouth two times a day. leflunomide (ARAVA) 20 mg tablet TAKE 1 TABLET BY MOUTH EVERY DAY phenazopyridine (PYRIDIUM) 200 mg tablet Take 1 tablet by mouth three times a day as needed (for UTI symptoms). rosuvastatin (CRESTOR) 5 mg tablet Take 1 tablet by mouth once daily. phenazopyridine (PYRIDIUM) 200 mg tablet Take 1 tablet by mouth three times a day as needed. abatacept (ORENCIA CLICKJECT) 125 mg/mL auto-injector Inject 125mg (1 pen) subcutaneously one time a week. tirzepatide (MOUNJARO) 15 mg/0.5 mL pen injector Inject 15 mg subcutaneously one time a week. methocarbamol (ROBAXIN) 750 mg tablet Take 1 tablet by mouth four times daily. Diclofenac Potassium (CAMBIA) 50 mg pwpk Take 1 Packet by mouth as needed for migraine headache. Can repeat dose in 2 hours, no more than 2 doses per day, or 2 days per week Cmjuvclc1-Fromba6-Fuycw therm. (VSL#3) 112.5 billion cell cap Take 2 capsules by mouth daily at bedtime. ondansetron (ZOFRAN) 4 mg tablet Take 1 tablet by mouth every 12 hours as needed for nausea/vomiting. metoprolol succinate ER (TOPROL XL) 25 mg 24 hr tablet Take 1 tablet by mouth daily at bedtime. fremanezumab-vfrm (AJOVY AUTOINJECTOR) 225 mg/1.5 mL auto-injector Inject 4.5 mL under the skin every 3 months. clobetasol (TEMOVATE) 0.05 % ointment Apply 1 application to affected area two times a day. ubrogepant (UBRELVY) 100 mg tablet Take 1 tablet by mouth at migraine onset. May repeat once in 2 hours as needed. Magnesium Citrate 150mg (Pure Encapsulations) Take 4 capsules daily. riboflavin, vitamin B2, (VITAMIN B-2) 100 mg tab Take 4 tablets by mouth once daily. coenzyme Q10 (COQ-10) 100 mg cap capsule Take 1 capsule by mouth twice daily. vitamin D3-folic acid 5,000 unit- 1 mg tab Take 5,000 Units by mouth once daily. multivitamin tablet Take 1 tablet by mouth once daily. No current facility-administered medications on file prior to visit. [facility] RX SPECIALTY CLINICAL ASSESSMENT - INFLAMMATORY CONDITIONS V6: Assessment to use: Refill Assessment of injection issues: Yes Infection screening, including annual TB assessment when applicable to medication: Yes Current medication list (including drug interaction assessment): Yes Experience of adverse reactions to the medication: Yes Current PDC%: 35 Date of influenza vaccination reminder: 08/12/2024 Date of most recent vaccination assessment: 08/12/2024 Treatment Plan Information: Orencsantos Clickject 125mg/mL Inject 125mg (1 pen) subcutaneously one time a week. 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 Tx Plan Start Date: 10/09/2024 Estimated Start Date Info: No information available Est. Estimated Treatment Duration: Until loss of efficacy and/or no longer tolerated. Luis Santos ([facility]) [facility] FAX: documented in this encounter [facility] 12-23-2024 Note HNO ID: [id number] Author: ?, ?, ? Service: ? Author Type: ? Type: Progress Notes Filed: 12/23/2024 13:31 Note Text: Susan WHITESIDE was approved with details listed below. Plan Name: [facility] Phone/ , opt / [phone] Email: [email or web address] MIESHA reference number: [id number] Approval Dates: 12/23/2024 - 03/23/2025 Prescriptions will now be processed through [facility] for determination of next steps. Luis Santos ([facility]) [facility] FAX: [facility] 12-23-2024 Note HNO ID: [id number] Author: ?, ?, ? Service: ? Author Type: ? Type: Progress Notes Filed: 12/23/2024 11:20 Note Text: Orencia Renewal PA was initiated via email and is pending review. Plan Name: [facility] Phone/ , opt Email: [email or web address] Timeline: FAITH Santos ([employer]) [facility] FAX: [facility] 12-23-2024 Note HNO ID: [id number] Author: , ,, Domi Service: ? Author Type: ? Type: Progress Notes Filed: 12/23/2024 13:47 Note Text: [facility] Refill Assessment Medication(s): Susan Patient's current medication list and adherence status to current therapy were reviewed by Specialty Pharmacy clinical pharmacist to identify any new drug interactions or non-compliance to therapy. Therapy continues to be appropriate for disease, patient response, and medical condition. Verification of therapeutic benefit and effectiveness with current therapy was completed. Adverse events, barriers in adherence, and side effects were assessed and addressed if applicable. Will proceed with refill with no changes in therapy - patient progressing towards achieving therapeutic goals based on medication-specific laboratory parameters, disease state markers and outcomes. Office/provider notes have been reviewed prior to dispensing the medication. Abatacept (Orencia) - CD80/CD86 of T cell - DMARD Monitor for signs/symptoms of infection and/or hypersensitivity reaction. Conduct hepatitis and tuberculosis screening prior to therapy initiation. Perform periodic skin examinations. In patients receiving abatacept for prophylaxis of acute zicch-ozubxl-ndma disease following hematopoietic stem cell transplant, monitor for cytomegalovirus infection/reactivation for 6 months post-transplant; monitor for Daysi-Celis virus reactivation and for posttransplant lymphoproliferative disorder. Spirometry Data: Latest Ref Rng AND Units 07/03/2021 Spirometry Data FVC PRE (L) L 3.43 FVC POST (L) L 3.50 FEV1 PRE (L) L 2.86 FEV1_POST (L) L 3.01 FEV1/FVC PRE (%) % 83 FEV1/FVC POST (%) % 86 KXH60-91% PRE (L/S) L/S 2.89 QSK09-08% POST (L/S) L/S 3.23 PEF PRE (L/S) L/S 5.44 PEF POST (L/S) L/S 5.16 HBsAg Date Value Ref Range Status 07/31/2021 Negative Negative Final Hep B Surface Ab, Qual Date Value Ref Range Status 07/31/2021 Positive (A) Negative Final Comment: These results are consistent with previous exposure and/or immunity to the hepatitis B virus antigen. Hep B Core Ab, Total Date Value Ref Range Status 07/31/2021 Negative Negative Final Hep C Antibody IA Date Value Ref Range Status 07/31/2021 Negative Negative Final TB Result Date Value Ref Range Status 09/07/2024 Negative Final Current Outpatient Medications on File Prior to Visit Medication Sig predniSONE (DELTASONE) 10 mg tablet Take 3 tablets by mouth daily for 1 week, then 2 tablets daily by mouth for 1 week , then 1 tablet by mouth daily for 1 week, then stop. Please take with food. valACYclovir (VALTREX) 1 gram tablet Take 1 tablet by mouth once daily. buPROPion SR (WELLBUTRIN SR) 150 mg 12 hr tablet Take 1 tablet by mouth two times a day. leflunomide (ARAVA) 20 mg tablet TAKE 1 TABLET BY MOUTH EVERY DAY phenazopyridine (PYRIDIUM) 200 mg tablet Take 1 tablet by mouth three times a day as needed (for UTI symptoms). rosuvastatin (CRESTOR) 5 mg tablet Take 1 tablet by mouth once daily. phenazopyridine (PYRIDIUM) 200 mg tablet Take 1 tablet by mouth three times a day as needed. abatacept (ORENCIA CLICKJECT) 125 mg/mL auto-injector Inject 125mg (1 pen) subcutaneously one time a week. tirzepatide (MOUNJARO) 15 mg/0.5 mL pen injector Inject 15 mg subcutaneously one time a week. methocarbamol (ROBAXIN) 750 mg tablet Take 1 tablet by mouth four times daily. Diclofenac Potassium (CAMBIA) 50 mg pwpk Take 1 Packet by mouth as needed for migraine headache. Can repeat dose in 2 hours, no more than 2 doses per day, or 2 days per week Skbsxygp9-Bthsuw2-Clwhb therm. (VSL#3) 112.5 billion cell cap Take 2 capsules by mouth daily at bedtime. ondansetron (ZOFRAN) 4 mg tablet Take 1 tablet by mouth every 12 hours as needed for nausea/vomiting. metoprolol succinate ER (TOPROL XL) 25 mg 24 hr tablet Take 1 tablet by mouth daily at bedtime. fremanezumab-vfrm (AJOVY AUTOINJECTOR) 225 mg/1.5 mL auto-injector Inject 4.5 mL under the skin every 3 months. clobetasol (TEMOVATE) 0.05 % ointment Apply 1 application to affected area two times a day. ubrogepant (UBRELVY) 100 mg tablet Take 1 tablet by mouth at migraine onset. May repeat once in 2 hours as needed. Magnesium Citrate 150mg (Pure Encapsulations) Take 4 capsules daily. riboflavin, vitamin B2, (VITAMIN B-2) 100 mg tab Take 4 tablets by mouth once daily. coenzyme Q10 (COQ-10) 100 mg cap capsule Take 1 capsule by mouth twice daily. vitamin D3-folic acid 5,000 unit- 1 mg tab Take 5,000 Units by mouth once daily. multivitamin tablet Take 1 tablet by mouth once daily. No current facility-administered medications on file prior to visit. Canceled Appointments: Date Visit Type Provider Past Appointments Therapy Beatriz Melissa, PT Future Appointments Date Time Provider Department Center 12/30/2024 1:00 PM Sunil Owen DO [facility] 01/06/2025 9:30 AM SCREEN MAMMO [facility] (more content not included)... [facility] 12-15-2024 Note Addended by: AJIT TORRE on: 12/15/2024 01:43 PM Modules accepted: Orders [facility] 12-15-2024 Telephone encounter Note Rx sent [facility] 12-15-2024 Miscellaneous Notes Addended by: AJIT TORRE on: 12/15/2024 01:43 PM Modules accepted: Orders Rx sent Spoke with patient, she has read Animail message. She would like prednisone sent to [facility] - I would like to hold off if I can but if things progress I will have it available. Neris Godinez RN Please let her know I replied, see if she'd like pred. Thanks. documented in this encounter [facility] 12-15-2024 Telephone encounter Note Spoke with patient, she has read Animail message. She would like prednisone sent to [facility] - I would like to hold off if I can but if things progress I will have it available. Neris Godinez RN [facility] 12-15-2024 Telephone encounter Note Please let her know I replied, see if she'd like pred. Thanks. [facility] 12-14-2024 Note Patient Outreach (FA MPWS) KIRA ADHIKARI ([id number]) 1985 F [facility] Date Time Provider Department 12/14/24 DAVID KILGORE During your visit today, we recorded the following information about you: Allergies As of Date: 12/14/2024 Noted Allergy Reaction DILAUDID (HYDROMORPHONE) 08/06/2016 9 - Itching FENTANYL 08/06/2016 9 - Itching SULFA (SULFONAMIDE ANTIBIOTICS) 08/06/2016 2 - Rash Date Reviewed: 12/08/2024 Reviewed by: Alysia Crisostomo LPN - Fully Assessed Visit Diagnosis:Encounter for screening mammogram for breast cancer [Z12.31] Order(s):GILBERTO SCREENING W ASHLEY [[id number]] Order #: [id number] FUTURE Prescriptions as of 01/14/2025 - fremanezumab-vfrm (AJOVY AUTOINJECTOR) 225 mg/1.5 mL auto-injector Inject 4.5 mL under the skin every 3 months. - dihydroergotamine (TRUDHESA) 0.725 mg/pump act. (4 mg/mL) nasal spray Prime with 4 pumps before use. 1 spray in each nostril at migraine onset. May repeat once in 1 hour if needed. No more than 2 doses/24 hours and 3 doses/week. A complete dose is 2 sprays: 1 spray in each nostril. - carisoprodol (SOMA) 350 mg tablet Take 1 tablet by mouth three times a day as needed for up to 30 days. FOR PAIN OR MUSCLE SPASMS. - predniSONE (DELTASONE) 10 mg tablet Take 3 tablets by mouth daily for 1 week, then 2 tablets daily by mouth for 1 week , then 1 tablet by mouth daily for 1 week, then stop. Please take with food. - valACYclovir (VALTREX) 1 gram tablet Take 1 tablet by mouth once daily. - buPROPion SR (WELLBUTRIN SR) 150 mg 12 hr tablet Take 1 tablet by mouth two times a day. - leflunomide (ARAVA) 20 mg tablet TAKE 1 TABLET BY MOUTH EVERY DAY - rosuvastatin (CRESTOR) 5 mg tablet Take 1 tablet by mouth once daily. - abatacept (ORENCIA CLICKJECT) 125 mg/mL auto-injector Inject 125mg (1 pen) subcutaneously one time a week. - tirzepatide (MOUNJARO) 15 mg/0.5 mL pen injector Inject 15 mg subcutaneously one time a week. - Diclofenac Potassium (CAMBIA) 50 mg pwpk Take 1 Packet by mouth as needed for migraine headache. Can repeat dose in 2 hours, no more than 2 doses per day, or 2 days per week - Spavjvbf0-Mbwosr5-Iaofr therm. (VSL#3) 112.5 billion cell cap Take 2 capsules by mouth daily at bedtime. - ondansetron (ZOFRAN) 4 mg tablet Take 1 tablet by mouth every 12 hours as needed for nausea/vomiting. - clobetasol (TEMOVATE) 0.05 % ointment Apply 1 application to affected area two times a day. - Magnesium Citrate 150mg (Pure Encapsulations) Take 4 capsules daily. - riboflavin, vitamin B2, (VITAMIN B-2) 100 mg tab Take 4 tablets by mouth once daily. - coenzyme Q10 (COQ-10) 100 mg cap capsule Take 1 capsule by mouth twice daily. - vitamin D3-folic acid 5,000 unit- 1 mg tab Take 5,000 Units by mouth once daily. - multivitamin tablet Take 1 tablet by mouth once daily. Problem List As Of Date 12/14/2024 Noted Resolved H/O cervical spine surgery [Z98.890] 10/03/2016 Chronic neck pain [M54.2, G89.29] 03/29/2019 Hx of neck surgery [Z98.890] 01/13/2020 Radiculopathy, cervical region [M54.12] 01/13/2020 Arm numbness left [R20.0] 01/13/2020 Clenching of teeth [R19.8] 01/10/2021 Myofascial muscle pain [M79.18] 01/10/2021 Centric occlusion maximum intercuspation discre*01/10/2021 Arthralgia of left temporomandibular joint [M26*01/10/2021 Hyponatremia [E87.1] 03/21/2021 Acute metabolic encephalopathy [G93.41] 03/21/2021 Migraine headache with aura [G43.109] 03/21/2021 Water intoxication [E87.79] 03/22/2021 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, G89.29] 03/22/2021 Inflammatory arthritis [M19.90] 03/22/2021 Somatic dysfunction of rib [M99.08] 04/23/2021 Somatic dysfunction of spine, thoracic [M99.02] 04/23/2021 Somatic dysfunction of spine, cervical [M99.01] 04/23/2021 Acute right-sided thoracic back pain [M54.6] 04/23/2021 Neck pain [M54.2] 04/23/2021 Chronic migraine without aura, with intractable*07/18/2022 Right hip impingement syndrome [M25.851] 08/09/2022 BMI 30.0-30.9,adult [Z68.30] 10/05/2022 06/06/2023 Impaired fasting glucose [R73.01] 10/05/2022 Dyslipidemia [E78.5] 10/23/2022 PCOS (polycystic ovarian syndrome) [E28.2] 10/23/2022 Obesity, Class I, BMI 30-34.9 [E66.811] 10/23/2022 06/06/2023 PVC's (premature ventricular contractions) [I49*06/06/2023 Lichen sclerosus [L90.0] 11/21/2020 Hypercholesteremia [E78.00] Acute post-operative pain [G89.18] 06/12/2023 Vitamin D deficiency [E55.9] 06/26/2023 Intractable chronic migraine without aura and w*07/22/2023 Chronic migraine without aura, intractable, wit*07/22/2023 Migraine with aura and without status migrainos*07/22/2023 Cervicalgia [M54.2] 07/22/2023 Bilateral occipital neuralgia [M54.81] 07/22/2023 Spinal stenosis of cervical region [M48.02] 09/07/2024 Encounter Status:Closed by [employer], PRODUSER on 01/14/25 [facility] 12-10-2024 Telephone encounter Note The following approved medication requests have been transmitted electronically. Requested Prescriptions Signed Prescriptions Disp Refills valACYclovir (VALTREX) 1 gram tablet 90 tablet 3 Sig: Take 1 tablet by mouth once daily. Authorizing Provider: DAVID KILGORE DO [facility] 12-10-2024 Miscellaneous Notes The following approved medication requests have been transmitted electronically. Requested Prescriptions Signed Prescriptions Disp Refills valACYclovir (VALTREX) 1 gram tablet 90 tablet 3 Sig: Take 1 tablet by mouth once daily. Authorizing Provider: DAVID KILGORE DO [facility] received prescription(s) for valacyclovir from Dr. Kilgore's office. Unfortunately, we do not carry or service non-specialty medications. If you would like the medication to be mailed to the patient by a [facility], please consider sending the Rx to [facility] (phone [phone]). Otherwise, please send the Rx to a [facility] outpatient pharmacy or patient's preferred pharmacy. Thanks, Janette WaldronD, BCACP, BCOP Clinical Pharmacist, Oncology [facility] P: , F: Pool: P [facility] Pool #: [id number] documented in this encounter [facility] 12-10-2024 Telephone encounter Note [facility] received prescription(s) for valacyclovir from Dr. Kilgore's office. Unfortunately, we do not carry or service non-specialty medications. If you would like the medication to be mailed to the patient by a [facility], please consider sending the Rx to [facility] (phone [phone]). Otherwise, please send the Rx to a [facility] outpatient pharmacy or patient's preferred pharmacy. Thanks, Jennifer Patricia PharmD, LYNETTECP, BCOP Clinical Pharmacist, Oncology [facility] P: , F: Pool: P [facility] Pool #: [id number] [facility] 12-08-2024 Note HNO ID: [id number] Author: DAVID KILGORE DO Service: ? Author Type: Physician Type: Progress Notes Filed: 12/08/2024 21:28 Note Text: CC: Kira Adhikari is a 39 year old female who presents to the office for physical HPI: Nerve pain symptoms that she is concerned about and what the cause could be. She states that she has recently stopped the metoprolol due to neuropathy symptoms starting- mostly in the feet and up to the mid tibia area with numbness and tingling b/l. ? Decreased sensation in hands- unsure if related to neuropathy vs. Raynaud's Concerns about brain fog and struggling with extreme fatigue- despite good sleep hygiene- goes to bed at 10 pm and getting at least 8 hours a night + short term memory recall difficulty- difficulty with recall of a word that she is wanting to say. Not able to come up with the words. Has frequent migraine headaches. She is very concerned since these symptoms are worsening and present x months. + chest pain and palpitations. 6 months of worsening symptoms. Does admit to sometimes feeling that she even has symptoms when trying to swallow liquids or food. No dysphagia. No vomiting of nausea. She is taking Mounjaro medication for weight los and weight maintenance. Inflammatory arthritis, RA vs. or other cause, is seeing Personal Lines Advisor and taking Arava and recently started on Orencia Struggling with neck pain and degenerative/herniated disc in cervical spine. Intermittent low back pain and sciatica. 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 PAST SURGICAL HISTORY Procedure Laterality Date CONIZATION OF CERVIX, LEEP NECK SURGERY HX 08/19/2016 Left C7 foraminotomy, Left C6-7 diskectomy - w/ benefit though continues to have pain (left side of neck, shooting pains in arm, left wrist and distal numbness) PAST SURGICAL HISTORY OF at age of 6 years left inguinal hernia repair PAST SURGICAL HISTORY OF Tonsillectomy Social History: Social History Tobacco Use Smoking status: Never Smokeless tobacco: Never Vaping Use Vaping status: Never Used Substance Use Topics Alcohol use: Not Currently Comment: none since 2019 Drug use: No FAMILY HISTORY Problem Relation Age of Onset Hyperlipidemia Mother baseline TC 300's, smoker Diabetes Mother type 1 autoimune Obesity Father Hyperlipidemia Father Hypertension Father Prostate Cancer Father Current Outpatient prescriptions: valACYclovir (VALTREX) 1 gram tablet Take 1 tablet by mouth once daily. iv contrast (will be provided with radiology test) MRI Brain Inject, intravenously, once for 1 dose.No IV access, insert saline lock prior to beginning of sedation, infusion, injection of imaging exam.Discontinue saline lock post exam. If Pt. has a central line or IVAD, may access for administration according to line specific nursing protocol.Once exam is complete flush line and de-access according to line specific nursing protocol in the MR contrast administration guidelines link buPROPion SR (WELLBUTRIN SR) 150 mg 12 hr tablet Take 1 tablet by mouth two times a day. leflunomide (ARAVA) 20 mg tablet TAKE 1 TABLET BY MOUTH EVERY DAY phenazopyridine (PYRIDIUM) 200 mg tablet Take 1 tablet by mouth three times a day as needed (for UTI symptoms). rosuvastatin (CRESTOR) 5 mg tablet Take 1 tablet by mouth once daily. phenazopyridine (PYRIDIUM) 200 mg tablet Take 1 tablet by mouth three times a day as needed. predniSONE (DELTASONE) 10 mg tablet Take by mouth with food.Take 30mg(3 tabs)/day x1 week, then 20mg (2 tabs)/day x1 week, then 10mg (1 tab)/day x1 week, then stop abatacept (ORENCIA CLICKJECT) 125 mg/mL auto-injector Inject 125mg (1 pen) subcutaneously one time a week. tirzepatide (MOUNJARO) 15 mg/0.5 mL pen injector Inject 15 mg subcutaneously one time a week. methocarbamol (ROBAXIN) 750 mg tablet Take 1 tablet by mouth four times daily. Diclofenac Potassium (CAMBIA) 50 mg pwpk Take 1 Packet by mouth as needed for migraine headache. Can repeat dose in 2 hours, no more than 2 doses per day, or 2 days per week Efhcaztg2-Qguwhc7-Tdqmv therm. (VSL#3) 112.5 billion cell cap Take 2 capsules by mouth daily at bedtime. ondansetron (ZOFRAN) 4 mg tablet Take 1 tablet by mouth every 12 hours as needed for nausea/vomiting. metoprolol succinate ER (TOPROL XL) 25 mg 24 hr tablet Take 1 tablet by mouth daily at bedtime. fremanezumab-vfrm (AJOVY AUTOINJECTOR) 225 mg/1.5 mL auto-injector Inject 4.5 mL under the skin every 3 (more content not included)... [facility] 12-08-2024 History of Present illness Narrative CC: Kira Adhikari is a 39 year old female who presents to the office for physical HPI: Nerve pain symptoms that she is concerned about and what the cause could be. She states that she has recently stopped the metoprolol due to neuropathy symptoms starting- mostly in the feet and up to the mid tibia area with numbness and tingling b/l. ? Decreased sensation in hands- unsure if related to neuropathy vs. Raynaud's Concerns about brain fog and struggling with extreme fatigue- despite good sleep hygiene- goes to bed at 10 pm and getting at least 8 hours a night + short term memory recall difficulty- difficulty with recall of a word that she is wanting to say. Not able to come up with the words. Has frequent migraine headaches. She is very concerned since these symptoms are worsening and present x months. + chest pain and palpitations. 6 months of worsening symptoms. Does admit to sometimes feeling that she even has symptoms when trying to swallow liquids or food. No dysphagia. No vomiting of nausea. She is taking Mounjaro medication for weight los and weight maintenance. Inflammatory arthritis, RA vs. or other cause, is seeing Personal Lines Advisor and taking Arava and recently started on Orencia Struggling with neck pain and degenerative/herniated disc in cervical spine. Intermittent low back pain and sciatica. 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 PAST SURGICAL HISTORY Procedure Laterality Date CONIZATION OF CERVIX, LEEP NECK SURGERY HX 08/19/2016 Left C7 foraminotomy, Left C6-7 diskectomy - w/ benefit though continues to have pain (left side of neck, shooting pains in arm, left wrist and distal numbness) PAST SURGICAL HISTORY OF at age of 6 years left inguinal hernia repair PAST SURGICAL HISTORY OF Tonsillectomy Social History: Social History Tobacco Use Smoking status: Never Smokeless tobacco: Never Vaping Use Vaping status: Never Used Substance Use Topics Alcohol use: Not Currently Comment: none since 2019 Drug use: No FAMILY HISTORY Problem Relation Age of Onset Hyperlipidemia Mother baseline TC 300's, smoker Diabetes Mother type 1 autoimune Obesity Father Hyperlipidemia Father Hypertension Father Prostate Cancer Father Current Outpatient prescriptions: valACYclovir (VALTREX) 1 gram tablet Take 1 tablet by mouth once daily. iv contrast (will be provided with radiology test) MRI Brain Inject, intravenously, once for 1 dose.No IV access, insert saline lock prior to beginning of sedation, infusion, injection of imaging exam.Discontinue saline lock post exam. If Pt. has a central line or IVAD, may access for administration according to line specific nursing protocol.Once exam is complete flush line and de-access according to line specific nursing protocol in the MR contrast administration guidelines link buPROPion SR (WELLBUTRIN SR) 150 mg 12 hr tablet Take 1 tablet by mouth two times a day. leflunomide (ARAVA) 20 mg tablet TAKE 1 TABLET BY MOUTH EVERY DAY phenazopyridine (PYRIDIUM) 200 mg tablet Take 1 tablet by mouth three times a day as needed (for UTI symptoms). rosuvastatin (CRESTOR) 5 mg tablet Take 1 tablet by mouth once daily. phenazopyridine (PYRIDIUM) 200 mg tablet Take 1 tablet by mouth three times a day as needed. predniSONE (DELTASONE) 10 mg tablet Take by mouth with food.Take 30mg(3 tabs)/day x1 week, then 20mg (2 tabs)/day x1 week, then 10mg (1 tab)/day x1 week, then stop abatacept (ORENCIA CLICKJECT) 125 mg/mL auto-injector Inject 125mg (1 pen) subcutaneously one time a week. tirzepatide (MOUNJARO) 15 mg/0.5 mL pen injector Inject 15 mg subcutaneously one time a week. methocarbamol (ROBAXIN) 750 mg tablet Take 1 tablet by mouth four times daily. Diclofenac Potassium (CAMBIA) 50 mg pwpk Take 1 Packet by mouth as needed for migraine headache. Can repeat dose in 2 hours, no more than 2 doses per day, or 2 days per week Zpcolevs9-Epatuq8-Zcdui therm. (VSL#3) 112.5 billion cell cap Take 2 capsules by mouth daily at bedtime. ondansetron (ZOFRAN) 4 mg tablet Take 1 tablet by mouth every 12 hours as needed for nausea/vomiting. metoprolol succinate ER (TOPROL XL) 25 mg 24 hr tablet Take 1 tablet by mouth daily at bedtime. fremanezumab-vfrm (AJOVY AUTOINJECTOR) 225 mg/1.5 mL auto-injector Inject 4.5 mL under the skin every 3 months. clobetasol (TEMOVATE) 0.05 % ointment Apply 1 application to affected area two times a day. ubrogepant (UBRELVY) 100 mg tablet Take 1 tablet by mouth at migraine onset. May repeat once in 2 hours as needed. Magnesium Citrate 150mg (Pure Encapsulations) Take 4 capsules daily. riboflavin, vitamin B2, (VITAMIN B-2) 100 mg tab Take 4 tablets by mouth once daily. coenzyme Q10 (COQ-10) 100 mg cap capsule Take 1 capsule by mouth twice daily. vitamin D3-folic acid 5,000 unit- 1 mg tab Take 5,000 Units by mouth once daily. multivitamin tablet Take 1 tablet by mouth once daily. Allergies: ALLERGIES Allergen Reactions Dilaudid [Hydromorp* Itching Fentanyl Itching Sulfa (Sulfonamide * Rash ROS: See HPI PE: 12/08/24 1151 BP: 120/80 Pulse: 72 Resp: 12 Temp: 36.1 C (97 F) TempSrc: Right Tympanic Weight: 63 kg (139 lb) Height: 165.1 cm (5' 5) Gen: A&O, NAD, non-toxic appearing, Pleasant, cooperative HEENT: NT/AC, PERRLA, wearing glasses, EOMs intact b/l, nares clear and patent b/l, pharynx without erythema, exudate or lesions. Uvula midline. MMM, EACs without erythema or debris. TMs pearly anthony with intact landmarks b/l. Neck: supple, No cervical LAD, no thyromegaly, no carotid bruits CV: RRR, normal S1 and S2, no murmurs, no gallops, no rubs, Pulses 2+ and symmetric in UE and LE b/l Lungs: normal respiratory effort, CTA b/l, no wheezing or rhonchi or rales Abd: soft, NT, ND, +BS, no hepatosplenomegaly MS: FROM all 4 extremities Neuro: CN II-XII intact b/l, strength 5/5 b/l UE and LE, DTRs 2/4 UE and LE, sensation diminished peripherally hands and feet Skin: warm, dry, intact, No rashes or lesions on exposed skin. No edema, normal pulses ASSESSMENT/PLAN: 1. Routine physical examination - ICD9: V70.0, ICD10: Z00.00 (primary diagnosis) - Counseled on healthy diet and regular exercise - labs and testing as ordered. 2. Numbness and tingling of both legs - ICD9: 782.0, ICD10: R20.0, R20.2 Need for EMG/NCT legs and arms b/l Unsure of symptoms Concerns that I have for central cause such as MS vs. Systemic cause vs. Peripheral cause. - LYME AB LATE >30 DAYS SYMPTOMS - SYPHILIS TREPONEMAL W/REFLEX - HIV 1/2 COMBO WITH REFLEX TO DIFFERENTIATION - EMG(NEURO/NI) 3. Paresthesia of both hands - ICD9: 782.0, ICD10: R20.2 Need for EMG/NCT legs and arms b/l Unsure of symptoms Concerns that I have for central cause such as MS vs. Systemic cause vs. Peripheral cause. - EMG(NEURO/NI) 4. Poor short term memory - ICD9: 780.93, ICD10: R41.3 See above, concerns that central imaging is needed as orderedNeed for EMG/NCT legs and arms b/l Unsure of symptoms Concerns that I have for central cause such as MS vs. Systemic cause 5. Word finding difficulty - ICD9: V40.1, ICD10: R47.89 See above, concerns that central imaging is needed as orderedNeed for EMG/NCT legs and arms b/l Unsure of symptoms Concerns that I have for central cause such as MS vs. Systemic cause - COMPREHENSIVE METABOLIC PANEL - COMPLETE BLOOD COUNT AND DIFFERENTIAL - THYROID STIMULATING HORMONE - T4 FREE/FREE THYROXINE - T3, FREE - C-REACTIVE PROTEIN - SEDIMENTATION RATE, WESTERGREN 6. Worsening headaches - ICD9: 784.0, ICD10: R51.9 See above, concerns that central imaging is needed as orderedNeed for EMG/NCT legs and arms b/l Unsure of symptoms Concerns that I have for central cause such as MS vs. Systemic cause - COMPREHENSIVE METABOLIC PANEL - COMPLETE BLOOD COUNT AND DIFFERENTIAL - THYROID STIMULATING HORMONE - T4 FREE/FREE THYROXINE - T3, FREE - C-REACTIVE PROTEIN - SEDIMENTATION RATE, WESTERGREN 7. Thunderclap headache - ICD9: 784.0, ICD10: G44.53 See above, concerns that central imaging is needed as orderedNeed for EMG/NCT legs and arms b/l Unsure of symptoms Concerns that I have for central cause such as MS vs. Systemic cause - MRI BRAIN WO/W IVCON - COMPREHENSIVE METABOLIC PANEL - COMPLETE BLOOD COUNT AND DIFFERENTIAL - THYROID STIMULATING HORMONE - T4 FREE/FREE THYROXINE - T3, FREE - C-REACTIVE PROTEIN - SEDIMENTATION RATE, WESTERGREN 8. Chest pain, unspecified type - ICD9: 786.50, ICD10: R07.9 Unsure cause of symptoms Need for ECG and ECHO and labs as ordered May need EGD for concerns for cause such as EOE vs. Esophageal spasms vs. GERD or esophagitis. - ECHO - PERFLUTREN LIPID MICROSPHERES 1.1 MG/ML INJECTION IN NS 10 ML - SODIUM CHLORIDE 0.9 % (FLUSH) INJECTION SYRINGE - ECG COMPLETE - OUTSIDE VENDOR CARDIAC OUTPATIENT EXTENDED RHYTHM RECORDING (WITHOUT TELEMETRY) - H PYLORI IGG AB 9. Recurrent UTI (urinary tract infection) - ICD9: 599.0, ICD10: N39.0 recurrent - Send urine for culture - Patient education for prevention given - BACTERIAL CULTURE, URINE - URINALYSIS (WITH MICROSCOPIC) WITH CULTURE IF INDICATED 10. Vitamin D deficiency - ICD9: 268.9, ICD10: E55.9 - VITAMIN D 25 HYDROXY 11. Hypersomnolence - ICD9: 780.54, ICD10: G47.10 Check labs - VITAMIN B12 12. Fatigue, unspecified type - ICD9: 780.79, ICD10: R53.83 Check labs as ordered. - VITAMIN B12 13. Hyperlipidemia, mixed - ICD9: 272.2, ICD10: E78.2 - Control undetermined, due for labs - Counseled on healthy diet and regular exercise - LIPID PANEL BASIC - OMEGACHECK - APOLIPOPROTEIN A+B David L Kilgore, DO To ER if develops chest pain, shortness of breath, or severe worsening of symptoms. Discussed risks, benefits, alternatives, and potential side effects of medications. Patient expressed understanding and agreed with the plan. David Kilgore DO [address] [place] [address] documented in this encounter [facility] 12-08-2024 Note HNO ID: [id number] Author: DENVER CEVALLOS MD Service: ? Author Type: Physician Type: Procedures Filed: 01/10/2025 14:24 Note Text: Patient Name: Kira Adhikari : 1985 Ordering Provider: David Kilgore Indication: R07.9 Chest pain, unspecified Type of Monitor: Extended Monitoring-Zio Patch Enrollment Dates: 12/17/2024-12/31/2024 IRHYTHM FINDINGS: Patient had a min HR of 56 bpm, max HR of 162 bpm, and avg HR of 89 bpm. Predominant underlying rhythm was Sinus Rhythm. Isolated SVEs were rare (<1.0%), SVE Couplets were rare (<1.0%), and no SVE Triplets were present. Isolated VEs were rare (<1.0%), and no VE Couplets or VE Triplets were present. [facility] 11-30-2024 Telephone encounter Note Refill request received from pharmacy. Gayatri Brown RN [facility] 11-30-2024 Miscellaneous Notes Refill request received from pharmacy. Gayatri Brown RN documented in this encounter [facility] 11-29-2024 Note Formatting of this n ote is different from the original. Last 3 Encounter BP Readings: Date: BP: 11/03/2024 136/70 01/02/2024 119/68 12/24/2023 135/71 LDL:HDL RATIO Applies to members that are diet and Exercise controlled LDL:HDL RATIO does not apply to members on a statin Last 3 LDL readings: LDL Cholesterol (mg/dL) Date Value 06/16/2024 82 01/29/2023 81 10/04/2022 195 01/23/2021 179 02/03/2020 178 No results found for: LDLCHOLDIR LDL:HDL Ratio Date Value Ref Range Status 06/16/2024 1.37 <2.54 Final Comment: Reference: 1. National Cholesterol Education Program ATP III Guideline At-A-Glance Quick Desk Reference: National Heart, Lung, and Blood [place]. National Institutes of Health. 2001: NIH Publication No. 01-3305. 2. An International Atherosclerosis Society position paper: global recommendations for the management of dyslipidemia: executive summary, Atherosclerosis. 2014: 232(2):410-413. Hemoglobin A1C (%) Date Value 10/04/2022 4.9 01/23/2021 5.2 Lab Results Component Value Date HBA1C 4.9 10/04/2022 HBA1C 5.2 01/23/2021 MEDICATIONS PER RX DATABASE ROSUVASTATIN AJOVY, METOPROLOL SUCCINATE, CAMBIA, UBREVLY Adherent with medication refills YES Date Verified 11/29/2024 Is member submitting receipts for Reimbursement NO Is member eligible for medication reimbursement Yes Is Employee Health Plan primary Yes Member resides in [facility] 3 personal identifiers!!! This call may be recorded for quality purposes. Best time to reach you - Preferred form of contact (phone, email, Mychart) Lifestyles: Do you know how to access Health Visit Portal? Health Visit Form required? Any Changes in Health, ER/Hospital admits since last contact Medical Equipment: (Blood Pressure monitor, CPAP, Peak flow meter, Nebulizer, Glucometer, CGM, Insulin Pump) Last MD Appointment Food What types of foods are you eat? What types of foods are you avoiding? Regional Manager? Current exercise/Activity Restrictions? Instructions? Sleep Nicotine?---Ask once a year Co-pay Reimbursement--Review Annually Managing your healthy choice program(s) How confident are you in your ability to control this condition? Understand risks of untreated condition? Are you checking (Blood Sugar, Blood Pressure, weighing self) Meds / OTC - Is member adherent with medication refills? Aware of side effects? Next MD appt Labs - Readiness to change:--At least annually Goals to work on between now and next call Depression screening--Is upon enrollment and as needed Asthma--Action reviewed with provider Annual? ACT Current / Unexpired Rescue inhaler Diabetes: Blood sugar--frequency and range Required lab work: A1C at least 2x/year Urine Micro-albumin annual Special exams: Annual Foot exam Annual dilated eye exam [facility] 11-29-2024 Miscellaneous Notes Last 3 Encounter BP Readings: Date: BP: 11/03/2024 136/70 01/02/2024 119/68 12/24/2023 135/71 LDL:HDL RATIO Applies to members that are diet and Exercise controlled LDL:HDL RATIO does not apply to members on a statin Last 3 LDL readings: LDL Cholesterol (mg/dL) Date Value 06/16/2024 82 01/29/2023 81 10/04/2022 195 01/23/2021 179 02/03/2020 178 No results found for: LDLCHOLDIR LDL:HDL Ratio Date Value Ref Range Status 06/16/2024 1.37 <2.54 Final Comment: Reference: 1. National Cholesterol Education Program ATP III Guideline At-A-Glance Quick Desk Reference: National Heart, Lung, and Blood [place]. National Institutes of Health. 2001: NIH Publication No. 01-3305. 2. An International Atherosclerosis Society position paper: global recommendations for the management of dyslipidemia: executive summary, Atherosclerosis. 2014: 232(2):410-413. Hemoglobin A1C (%) Date Value 10/04/2022 4.9 01/23/2021 5.2 Lab Results Component Value Date HBA1C 4.9 10/04/2022 HBA1C 5.2 01/23/2021 MEDICATIONS PER RX DATABASE ROSUVASTATIN AJOVY, METOPROLOL SUCCINATE, CAMBIA, UBREVLY Adherent with medication refills YES Date Verified 11/29/2024 Is member submitting receipts for Reimbursement NO Is member eligible for medication reimbursement Yes Is Employee Health Plan primary Yes Member resides in state of [place] 3 personal identifiers!!! This call may be recorded for quality purposes. Best time to reach you - Preferred form of contact (phone, email, Mychart) Lifestyles: Do you know how to access Health Visit Portal? Health Visit Form required? Any Changes in Health, ER/Hospital admits since last contact Medical Equipment: (Blood Pressure monitor, CPAP, Peak flow meter, Nebulizer, Glucometer, CGM, Insulin Pump) Last MD Appointment Food What types of foods are you eat? What types of foods are you avoiding? Regional Manager? Current exercise/Activity Restrictions? Instructions? Sleep Nicotine?---Ask once a year Co-pay Reimbursement--Review Annually Managing your healthy choice program(s) How confident are you in your ability to control this condition? Understand risks of untreated condition? Are you checking (Blood Sugar, Blood Pressure, weighing self) Meds / OTC - Is member adherent with medication refills? Aware of side effects? Next MD appt Labs - Readiness to change:--At least annually Goals to work on between now and next call Depression screening--Is upon enrollment and as needed Asthma--Action reviewed with provider Annual? ACT Current / Unexpired Rescue inhaler Diabetes: Blood sugar--frequency and range Required lab work: A1C at least 2x/year Urine Micro-albumin annual Special exams: Annual Foot exam Annual dilated eye exam documented in this encounter [facility] 11-02-2024 Telephone encounter Note Procedure: C7-T1 RAQUEL Procedure Date: 11/04/2024 Auth Status: DENIED Denial Rationale: Per Rep case was denied due to facility is not IN with provider. Rep advised that we must send a new request with the correct tax id. Patient contacted Pain Management with voicemail on 11/02/2024 at 1221 regarding injection procedure denial. Patient requesting return telephone call. Contacted patient via telephone. Patient would like to attempt to proceed with injection procedure on 11/04/2024. Patient unclear who or why injection procedure cancelled. Secure email sent to [facility] to assist with resubmitting prior authorization. Surgery schedulers contacted to add patient back on injection schedule (patient confirmed to be back on injection schedule). Notified patient of above information. [facility] 11-02-2024 Miscellaneous Notes Procedure: C7-T1 RAQUEL Procedure Date: 11/04/2024 Auth Status: DENIED Denial Rationale: Per Rep case was denied due to facility is not IN with provider. Rep advised that we must send a new request with the correct tax id. Patient contacted Pain Management with voicemail on 11/02/2024 at 1221 regarding injection procedure denial. Patient requesting return telephone call. Contacted patient via telephone. Patient would like to attempt to proceed with injection procedure on 11/04/2024. Patient unclear who or why injection procedure cancelled. Secure email sent to [facility] to assist with resubmitting prior authorization. Surgery schedulers contacted to add patient back on injection schedule (patient confirmed to be back on injection schedule). Notified patient of above information. documented in this encounter [facility] 10-11-2024 Note HNO ID: [id number] Author: BEATRIZ MELISSA, PT Service: ? Author Type: Physical Therapist Type: Progress Notes Filed: 10/11/2024 13:21 Note Text: Episode Visit Count: 3 Therapist That Will Accept/Oversee The Plan Of Care: Beatriz Melissa Start of Care Date: 09/07/24 Onset Date: 12/01/23 REHABILITATION AND SPORTS THERAPY PHYSICAL THERAPY TREATMENT NOTE ASSESSMENT: Kira Adhikari tolerated the session with decreased symptoms and expected muscle soreness. She demonstrated improvements in NGUYEN and migraine symptoms post session. The patient will continue to benefit from ongoing skilled physical therapy to progress toward set goals. PLAN FOR NEXT VISIT: Continue manual for cervical as needed, progress exercises per symptom tolerance SUBJECTIVE: Patient in a full blown migraine today. Notes NGUYEN, brain fog, and heightened sensitivity of neck and head Pain: Pain Pain Level: 8 Pain Location: Neck Description: Aching, Sore, Tightness Frequency: Continuous OBJECTIVE MEASURES WITH LEVEL OF FUNCTION: Upper traps, cervical paraspinals, and SCM's all reproduce different aspect of patient's migraine today TREATMENT: Manual Therapy: 1: Manual cervical traction x10 min with pull to tolerance 2: STM, CFM, and stripping to B SCM's, upper traps, and cervical paraspinals with push to tolerance Dry Needling: (1) 30 and 40 mm needles to B upper traps with pistoning and fanning; (1) 30 and 40 mm needles to B C4 and C7 with placement of needles in clock technique plus TENS Skilled Intervention: Manual skills to improve joint mobility, ROM, and decrease pain. Utilized anatomy knowledge of the therapist, and assessment of patient's response to intervention. Modalities: E-Stim Attended/TENS Body Region Treated - E-Stim Attended/TENS: C4 and C7 Patient Position: Prone Current: 10 Hz Channels: 1-2, 3-4 Intensity: Ch 1-2 2.5 V, Ch 3-4 3.5 Minutes: 10 Skilled Intervention: Proper administration and selection of modality based on clinical presentation, deficits, and needs. Patient response monitored throughout treatment. Billing Manual TherapyTreatment Minutes: 45 E- Stim Attended/TENS Treatment Minutes: 10 Skilled Treatment Time Minutes (timed and untimed codes): 55 Total Session Time (minutes): 55 Session Start Time : 1205 Session Stop Time : 1300 Beatriz Melissa PT [facility] 10-11-2024 History of Present illness Narrative Episode Visit Count: 3 Therapist That Will Accept/Oversee The Plan Of Care: Beatriz Melissa Start of Care Date: 09/07/24 Onset Date: 12/01/23 REHABILITATION AND SPORTS THERAPY PHYSICAL THERAPY TREATMENT NOTE ASSESSMENT: Kira Adhikari tolerated the session with decreased symptoms and expected muscle soreness. She demonstrated improvements in NGUYEN and migraine symptoms post session. The patient will continue to benefit from ongoing skilled physical therapy to progress toward set goals. PLAN FOR NEXT VISIT: Continue manual for cervical as needed, progress exercises per symptom tolerance SUBJECTIVE: Patient in a full blown migraine today. Notes NGUYEN, brain fog, and heightened sensitivity of neck and head Pain: Pain Pain Level: 8 Pain Location: Neck Description: Aching, Sore, Tightness Frequency: Continuous OBJECTIVE MEASURES WITH LEVEL OF FUNCTION: Upper traps, cervical paraspinals, and SCM's all reproduce different aspect of patient's migraine today TREATMENT: Manual Therapy: 1: Manual cervical traction x10 min with pull to tolerance 2: STM, CFM, and stripping to B SCM's, upper traps, and cervical paraspinals with push to tolerance Dry Needling: (1) 30 and 40 mm needles to B upper traps with pistoning and fanning; (1) 30 and 40 mm needles to B C4 and C7 with placement of needles in clock technique plus TENS Skilled Intervention: Manual skills to improve joint mobility, ROM, and decrease pain. Utilized anatomy knowledge of the therapist, and assessment of patient's response to intervention. Modalities: E-Stim Attended/TENS Body Region Treated - E-Stim Attended/TENS: C4 and C7 Patient Position: Prone Current: 10 Hz Channels: 1-2, 3-4 Intensity: Ch 1-2 2.5 V, Ch 3-4 3.5 Minutes: 10 Skilled Intervention: Proper administration and selection of modality based on clinical presentation, deficits, and needs. Patient response monitored throughout treatment. 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 RX INSTRUCTIONS: Patient aware RX will be sent to pharmacy. No need to notify patient. LAST APPOINTMENT: 08/07/2022 UPCOMING APPOINTMENT: 01/12/2025 LABS: Hemoglobin (g/dL) Date Value 09/07/2024 14.4 12/27/2021 12.9 Hematocrit (%) Date Value 09/07/2024 43.6 12/27/2021 40.8 WBC (k/uL) Date Value 09/07/2024 4.17 12/27/2021 4.15 Platelet Count (k/uL) Date Value 09/07/2024 155 12/27/2021 191 AST Date Value Ref Range Status 09/07/2024 20 13 - 35 U/L Final ALT Date Value Ref Range Status 09/07/2024 13 7 - 38 U/L Final Creatinine Date Value Ref Range Status 09/07/2024 0.76 0.58 - 0.96 mg/dL Final Uric Acid Date Value Ref Range Status 01/23/2021 4.0 2.5 - 6.6 mg/dL Final documented in this encounter [facility] 10-08-2024 Telephone encounter Note Patient has been identified by name and date of : Yes -Current UTI with Macrobid and Pyridium as of today per chart review and 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 RX INSTRUCTIONS: Patient aware RX will be sent to pharmacy. No need to notify patient. LAST APPOINTMENT: 08/07/2022 UPCOMING APPOINTMENT: 01/12/2025 LABS: Hemoglobin (g/dL) Date Value 09/07/2024 14.4 12/27/2021 12.9 Hematocrit (%) Date Value 09/07/2024 43.6 12/27/2021 40.8 WBC (k/uL) Date Value 09/07/2024 4.17 12/27/2021 4.15 Platelet Count (k/uL) Date Value 09/07/2024 155 12/27/2021 191 AST Date Value Ref Range Status 09/07/2024 20 13 - 35 U/L Final ALT Date Value Ref Range Status 09/07/2024 13 7 - 38 U/L Final Creatinine Date Value Ref Range Status 09/07/2024 0.76 0.58 - 0.96 mg/dL Final Uric Acid Date Value Ref Range Status 01/23/2021 4.0 2.5 - 6.6 mg/dL Final [facility] 10-07-2024 Note Addended by: ROXANNA NUNES on: 10/07/2024 03:58 PM Modules accepted: Orders [facility] 10-07-2024 Miscellaneous Notes Addended by: ROXANNA NUNES on: 10/07/2024 03:58 PM Modules accepted: Orders The following approved medication requests have been transmitted electronically. Requested Prescriptions Signed Prescriptions Disp Refills acyclovir (ZOVIRAX) 400 mg tablet 60 tablet 3 Sig: Take 1 tablet by mouth two times a day. Authorizing Provider: ROXANNA NUNES PA-C Sent to [facility] home delivery. [facility] received prescription(s) for acyclovir (Zovirax) from Dr Kilgore's office. Unfortunately, we do not carry or service non-specialty medications. If you would like the medication to be mailed to the patient by a [facility], please consider sending the Rx to [facility] (phone [phone]). Otherwise, please send the Rx to a [facility] outpatient pharmacy or patient's preferred pharmacy. Thanks, Betsy Ferrara, PharmD Clinical Pharmacist, Oncology [facility] P: , F: Pool: P [facility] Pool #: [id number] documented in this encounter [facility] 10-07-2024 Telephone encounter Note The following approved medication requests have been transmitted electronically. Requested Prescriptions Signed Prescriptions Disp Refills acyclovir (ZOVIRAX) 400 mg tablet 60 tablet 3 Sig: Take 1 tablet by mouth two times a day. Authorizing Provider: ROXANNA NUNES PA-C Sent to [facility] home delivery. [facility] 10-07-2024 Telephone encounter Note [facility] received prescription(s) for acyclovir (Zovirax) from Dr Kilgore's office. Unfortunately, we do not carry or service non-specialty medications. If you would like the medication to be mailed to the patient by a [facility], please consider sending the Rx to [facility] (phone [phone]). Otherwise, please send the Rx to a [facility] outpatient pharmacy or patient's preferred pharmacy. Thanks, Betsy Ferrara, PharmD Clinical Pharmacist, Oncology [facility] P: , F: Pool: P [facility] Pool #: [id number] [facility] 10-06-2024 Telephone encounter Note Patient has been identified by name and date of : Yes RX INSTRUCTIONS: Patient aware RX will be sent to pharmacy. No need to notify patient. LAST APPOINTMENT: 10/30/2021 UPCOMING APPOINTMENT: 10/06/2024 LABS: Hemoglobin (g/dL) Date Value 09/07/2024 14.4 12/27/2021 12.9 Hematocrit (%) Date Value 09/07/2024 43.6 12/27/2021 40.8 WBC (k/uL) Date Value 09/07/2024 4.17 12/27/2021 4.15 Platelet Count (k/uL) Date Value 09/07/2024 155 12/27/2021 191 AST Date Value Ref Range Status 09/07/2024 20 13 - 35 U/L Final ALT Date Value Ref Range Status 09/07/2024 13 7 - 38 U/L Final Creatinine Date Value Ref Range Status 09/07/2024 0.76 0.58 - 0.96 mg/dL Final Uric Acid Date Value Ref Range Status 01/23/2021 4.0 2.5 - 6.6 mg/dL Final [facility] 10-06-2024 Miscellaneous Notes Patient has been identified by name and date of : Yes RX INSTRUCTIONS: Patient aware RX will be sent to pharmacy. No need to notify patient. LAST APPOINTMENT: 10/30/2021 UPCOMING APPOINTMENT: 10/06/2024 LABS: Hemoglobin (g/dL) Date Value 09/07/2024 14.4 12/27/2021 12.9 Hematocrit (%) Date Value 09/07/2024 43.6 12/27/2021 40.8 WBC (k/uL) Date Value 09/07/2024 4.17 12/27/2021 4.15 Platelet Count (k/uL) Date Value 09/07/2024 155 12/27/2021 191 AST Date Value Ref Range Status 09/07/2024 20 13 - 35 U/L Final ALT Date Value Ref Range Status 09/07/2024 13 7 - 38 U/L Final Creatinine Date Value Ref Range Status 09/07/2024 0.76 0.58 - 0.96 mg/dL Final Uric Acid Date Value Ref Range Status 01/23/2021 4.0 2.5 - 6.6 mg/dL Final documented in this encounter [facility] 10-06-2024 Telephone encounter Note Pt requesting refill as pended. Prescription Refill Information The patient has been identified by name and date of : Yes Caregiver verified no other encounters exist for this prescription request: Yes Caregiver confirmed with patient/requestor that no other refills are due, in the near future, with this provider at this time: Yes The last office visit in the department: 10/30/2021 Does the patient have a future office visit with this provider/department: No Requested Prescriptions Pending Prescriptions Disp Refills acyclovir (ZOVIRAX) 400 mg tablet 60 tablet 3 Sig: Take 1 tablet by mouth two times a day. Radha Patrick MA October 06, 2024 1:26 PM [facility] 10-06-2024 Miscellaneous Notes Pt requesting refill as pended. Prescription Refill Information The patient has been identified by name and date of : Yes Caregiver verified no other encounters exist for this prescription request: Yes Caregiver confirmed with patient/requestor that no other refills are due, in the near future, with this provider at this time: Yes The last office visit in the department: 10/30/2021 Does the patient have a future office visit with this provider/department: No Requested Prescriptions Pending Prescriptions Disp Refills acyclovir (ZOVIRAX) 400 mg tablet 60 tablet 3 Sig: Take 1 tablet by mouth two times a day. Radha Patrick MA October 06, 2024 1:26 PM documented in this encounter [facility] 10-06-2024 Telephone encounter Note See refill encounter. Radha Patrick MA [facility] 10-06-2024 Miscellaneous Notes See refill encounter. Radha Patrick MA documented in this encounter [facility] 10-06-2024 Note HNO ID: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 better with simponi especially in the prior 3 days with 30% improvement compared to before the simponi infusion. - In Oct, reported simponi not as effective as humira. But overall felt better on simponi compared to being off it. Started on arava 10mg/day and planned to switch simponi IV to SC - In March, reported fatigue and low back pain greatly improved with arava 10mg/day added on. Flares had been minimal. - In March, started simponi SC - In May, s/p R hip arthroscopic labral tear repair, debridement, femoroplasty. Was off arava and simponi x4 weeks, resumed on 06/26/23 - In Jul, arava increased to 20mg/day - In Aug, reported she was doing well, healing from surgery. Combo of arava 20mg/day and simponi injections had helped. Hands were flaring a bit the prior week with the weather change. Went back to work the prior week - In May, reported things were going really well. The prior 2 weeks had been the most major flare she had had, burning in bilateral PIPs and swelling of the toes. Hard to make pincher grasp. Still felt like this had been the best combo of meds she's ever had. With a cervical disc herniation, currently on a medrol dose pack for that - Today, reports feeling poorly with the back pain returning and increased joint pain along with fatigue. - With neuropathy symptoms of the feet. [place] with neuropathy listed as a potential SE - Went on 8 trips this year. 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 Lichen sclerosis PAST SURGICAL HISTORY Procedure Laterality Date CONIZATION OF CERVIX, LEEP NECK SURGERY HX 08/19/2016 Left C7 foraminotomy, Left C6-7 diskectomy - w/ benefit though continues to have pain (left side of neck, shooting pains in arm, left wrist and distal numbness) PAST SURGICAL HISTORY OF at age of 6 years left inguinal hernia repair PAST SURGICAL HISTORY OF Tonsillectomy ALLERGIES Allergen Reactions Dilaudid [Hydromorp* Itching Fentanyl Itching Sulfa (Sulfonamide * Rash MEDICATIONS: Current Outpatient Medications Medication Sig tirzepatide (MOUNJARO) 15 mg/0.5 mL pen injector Inject 15 mg subcutaneously one time a week. rosuvastatin (CRESTOR) 5 mg tablet Take 1 tablet by mouth once daily. methocarbamol (ROBAXIN) 750 mg tablet Take 1 tablet by mouth four times daily. Diclofenac Potassium (CAMBIA) 50 mg pwpk Take 1 Packet by mouth as needed for migraine headache. Can repeat dose in 2 hours, no more than 2 doses per day, or 2 days per week leflunomide (ARAVA) 20 mg tablet TAKE 1 TABLET BY MOUTH EVERY DAY phenazopyridine (PYRIDIUM) 200 mg tablet Take 1 tablet by mouth three times a day as needed. pregabalin (LYRICA) 25 mg capsule Take 1 capsule by mouth two times a day as needed for up to 30 days. golimumab (SIMPONI) 50 mg/0.5 mL Inject 50mg ( 1 pen) subcutaneously every 4 weeks [id number]-[id number]-Rycyd therm. (VSL#3) 112.5 billion cell cap Take 2 capsules by mouth daily at bedtime. ondansetron (ZOFRAN) 4 mg tablet Take 1 tablet by mouth every 12 hours as needed for nausea/vomiting. metoprolol succinate ER (TOPROL XL) 25 mg 24 hr tablet Take 1 tablet by mouth daily at bedtime. fremanezumab-vfrm (AJOVY AUTOINJECTOR) 225 mg/1.5 mL auto-injector Inject 4.5 mL under the skin every 3 months. clobetasol (TEMOVATE) 0.05 % ointment Apply 1 application to affected area two times a day. buPROPion SR (WELLBUTRIN SR) 150 mg 12 hr tablet Take 1 tablet by mouth two times a day. buPROPion SR (WELLBUTRIN SR) 150 mg 12 hr tablet Take 1 tablet by mouth two times a day. ubrogepant (UBRELVY) 100 mg tablet Take 1 tablet by mouth at migraine onset. May repeat once in 2 hours as needed. Magnesium Citrate 150mg (Pure Encapsulations) Take 4 capsules daily. riboflavin, vitamin B2, (VITAMIN B-2) 100 mg tab Take 4 tablets by mouth once daily. coenzyme Q10 (COQ-10) 100 mg cap capsule Take 1 capsule by mouth twice daily. vitamin D3-folic acid 5,000 unit- 1 mg tab Take 5,000 Units by mouth once daily. multivitamin tablet Take 1 tablet by mouth once daily. No current facility-administered medications for this visit. FAMILY HISTORY: paternal aunt- currently undergoing RA evaluation, maternal uncles x2, maternal cousin-ankylosing spondylitis SOCIAL HISTORY: Lives in [place] with spouse with 2 kids, 10 yo and 13 yo (planning to foster to adopt). On 11/15/21, got a Kourtney to foster who she is on track to adopt (also adopting the biological mother who has intellectual difficulty), officially adopted per May visit. 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 Tobacco use: None Alcohol use: None since Aug Drug use: None REVIEW OF SYSTEMS: reviewed 09/13 systems, as above PHYSICAL EXAM: CONSTITUTIONAL: Well-appearing, in NAD. SKIN: No rash. No alopecia. EYES: No scleral icterus or conjunctivitis NEURO: Awake, alert and oriented *January Widespread Pain Index: 17 (0-19) Symptoms Severity Scale: 8 (0-12) WPI>7 and SS Scale>5 OR WPI 3-6 and SS Scale >9 consistent with fibromyalgia LABORATORY: Latest Ref Rng 06/16/2024 WBC 3.70 - 11.00 k/uL 4.15 RBC 3.90 - 5.20 m/uL 4.29 Hemoglobin 11.5 - 15.5 g/dL 13.7 Platelet Count 150 - 400 k/uL 148 (L) MPV 9.0 - 12.7 fL 10.8 Absolute nRBC <0.01 k/uL <0.01 Creatinine 0.58 - 0.96 mg/dL 0.81 eGFR >=60 mL/min/1.73m 95 ALT 7 - 38 U/L 18 AST 13 - 35 U/L 19 Component Latest Ref Rng & Units 07/17/2022 TB Nil <=8.00 IU/mL 0.01 TB1 Ag minus Nil <0.35 IU/mL 0.05 TB2 Ag minus Nil <0.35 IU/mL 0.05 TB Result Negative Mitogen minus Nil >=0.50 IU/mL >9.99 CRP <0.9 mg/dL WSR 0 - 20 mm/hr HLA-B27 DNA Result Negative Component Latest Ref Rng & Units 11/01/2020 Sm Antibody <1.0 AI <0.2 BRUSH FILLER HAND Antibody <1.0 AI 0.2 SSA Antibody <1.0 AI <0.2 SSB Antibody <1.0 AI <0.2 Centromere Ab <1.0 AI <0.2 Scleroderma Ab, IgG <1.0 AI <0.2 Debbie 1 Antibody <1.0 AI <0.2 Ribosomal BRUSH FILLER HAND <1.0 AI <0.2 Chromatin Antibody <1.0 AI <0.2 SEA by EIA, Qual Negative Negative SEA by EIA OD Ratio 0.2 CCP Antibody, IgG <20 Units <15 Rheumatoid Factor <16 IU/mL <10 Anti-SSA <1.0 AI <0.2 Anti-SSB <1.0 AI <0.2 CRP <0.9 mg/dL 0.4 CK 42 - 196 U/L 136 Vitamin D 25 Hydroxy 31.0 - 80.0 ng/mL 34.8 Endomysial Ab, IgA <1:10 <1:10 Component Latest Ref Rng & Units 01/23/2021 Gliadin Ab, IgA <20 Units 7 Gliadin Ab, IgG <20 Units 2 Transglutaminase Ab, IgG <20 Units 3 Transglutaminase Ab, IgA <20 Units 4 Component Latest Ref Rng & Units 02/03/2020 Sm Antibody <1.0 AI <0.2 BRUSH FILLER HAND Antibody <1.0 AI 0.2 SSA Antibody <1.0 AI <0.2 SSB Antibody <1.0 AI <0.2 Centromere Ab <1.0 AI <0.2 Scleroderma Ab, IgG <1.0 AI <0.2 Debbie 1 Antibody <1.0 AI <0.2 Ribosomal BRUSH FILLER HAND <1.0 AI <0.2 Chromatin Antibody <1.0 AI <0.2 SEA Negative Negative SEA Titer Negative Negative SEA Pattern Not applicable for negative result. IgA 78 - 391 mg/dL 289 Transglutaminase Ab, IgA <20 Units 4 Interpretation (Celiac Screen) No serologic evidence of celiac disease. No serologic evidence of celiac disease. UltraSens C-Reactive Protein <3.1 mg/L 1.6 WSR 0 - 20 mm/hr 8 Rheumatoid Factor <16 IU/mL <10 STUDIES: *Jul xray SI joints- Findings concerning for right hip cam type impingement. *January xray hands/SI joints- unremarkable *Jan MRI brain- No evidence for focal acute brain ischemia, mass effect, abnormal enhancement, or mastoid/middle ear inflammatory disease. No abnormal enhancement involving lower cranial nerves. Gross brain volume and morphology is within expected limits for age. Based on the axial T2 flow void pattern, proximal intracranial arterial vasculature, major cortical draining veins, and dural venous sinuses are patent. Concordant findings on the post gadolinium scans. *Oct MRI C-spine- Postop changes. Mild left bony foraminal stenosis at C6-7. Suspicion of mild epidural scar formation in the left C7-T1 neural foramen from a prior foraminotomy. No evidence of recurrent disc protrusion. IMPRESSION and PLAN: 1. Inflammatory arthritis: With steroid-responsive wrist, MCP and PIP pain along with fatigue, synovitis of the MCPs and PIPs in the past and negative serologies. Also with steroid responsive back/SI joint pain (separate from L hip CAM pain). Sulfa allergy. Has tried: HCQ (dizziness and tremors), MTX (ineffective), Humira (lost efficacy despite initial significant improvement), and enbrel (ineffective). Simponi IV with improvement (first dose in Jul), switched to SC in March with initial improvement, lost efficacy over time. Arava with improvement too. Increased joint pain - Continue arava 20mg/day along with routine lab monitoring, due Aug. Notify of results via Animail. - Stop simponi - Start orencia 125mg SC weekly. Advised about increased infection risk, injection site rxn and COPD flares - Check labs. Notify of results via Animail - If orencia ineffective, consider cosentyx for ankylosing spondylitis (SI/back pain, FHx of ankylosing spondylitis) 2. Migraine, chronic pain and cervical spine pain: Separate issues from the inflammatory arthritis - Continue PT, PCP, functional medicine and neurology management 3. Prior history of fibromyalgia: Current symptoms are not consistent with remote fibromyalgia presentation which resolved with cymbalta x2 years and then never recurred - Continue monitoring 4. CAM deformity/L hip pain: Mechanical issue separate from inflammatory arthritis - Continue ortho management 5. General health maintenance: - Doesn't plan on getting covid vaccine, has a adventist exemption - Advised to continue follow-up with PCP for routine health maintenance and malignancy screening Follow-up in 4 months with me (no SUPERVISOR STONE) or sooner if needed. Patient was instructed to call if any questions or concerns. Thank you for allowing me to participate in the care of your patient. Ajit Torre MD documented in this encounter [facility] 08-25-2024 Miscellaneous Notes Refill sent. Maddie Moraes APRN.ARELY documented in this encounter [facility] 08-25-2024 Telephone encounter Note Refill sent. Maddie Moraes APRN.ARELY [facility] 08-20-2024 Telephone encounter Note Injection order signed off [facility] Work Phone: 08-20-2024 Miscellaneous Notes Injection order signed off Animail message read: Last read by Kira Adhikari at 8:14 PM on 08/18/2024. Dr. Cheng reviewed patient's cervical MRI. Cervical MRI shows: Post-surgical changes Bulging disc at C6-7 Dr. Cheng recommends a right paramedian C7-T1 cervical epidural steroid injection. 6APTt message sent. Injection order pended for provider review. Routing to provider. documented in this encounter [facility] 08-19-2024 Telephone encounter Note Animail message read: Last read by Kira Adhikari at 8:14 PM on 08/18/2024. [facility] 08-18-[address] Cheng reviewed patient's cervical MRI. Cervical MRI shows: Post-surgical changes Bulging disc at C6-7 Dr. Cheng recommends a right paramedian C7-T1 cervical epidural steroid injection. Animail message sent. Injection order pended for provider review. Routing to provider. [facility] 08-17-2024 History of Present illness Narrative Radiology Service Progress Note PATIENT NAME: Kira Adhikari DATE OF SERVICE: August 17, 2024 TIME: 8:12 AM PATIENT IDENTITY VERIFICATION COMPLETED USING TWO (2) IDENTIFIERS: Name and Date of confirmed by patient verbally. FALL SCREENING: Has the patient had 2 falls in the last year or 1 fall with injury or currently using an Ambulatory Assistive Device (Walker, Cane, Wheelchair, Crutches, etc.)? No PATIENT GENDER DATA: Female. status: : No status: NO. 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 Therapy continues to be appropriate for disease, patient response, and medical condition. Verification of therapeutic benefit and effectiveness with current therapy was completed. Adverse events, barriers in adherence, and side effects were assessed and addressed if applicable. Will proceed with refill with no changes in therapy - patient progressing towards achieving therapeutic goals based on medication-specific laboratory parameters, disease state markers and outcomes. Office/provider notes have been reviewed prior to dispensing the medication. 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 Med/dose confirmed: Yes Supplies needed: No supplies needed Missed doses: No Estimated days supply on hand: 0 Next cycle/dose due: 08/21/24 Copay amount: 0 Delivery method: FedEx Signature required: No Delivery address: [address] [place] [id number] Delivery date: 08/19/24 Questions or concerns for the pharmacist?: No Did you have any side effects believed to be related to this medication, that resulted in hospitalization?: No Current Outpatient Medications on File Prior to Visit Medication Sig rosuvastatin (CRESTOR) 5 mg tablet Take 1 tablet by mouth once daily. methocarbamol (ROBAXIN) 750 mg tablet Take 1 tablet by mouth four times daily. Diclofenac Potassium (CAMBIA) 50 mg pwpk Take 1 Packet by mouth as needed for migraine headache. Can repeat dose in 2 hours, no more than 2 doses per day, or 2 days per week leflunomide (ARAVA) 20 mg tablet TAKE 1 TABLET BY MOUTH EVERY DAY phenazopyridine (PYRIDIUM) 200 mg tablet Take 1 tablet by mouth three times a day as needed. pregabalin (LYRICA) 25 mg capsule Take 1 capsule by mouth two times a day as needed for up to 30 days. golimumab (SIMPONI) 50 mg/0.5 mL Inject 50mg ( 1 pen) subcutaneously every 4 weeks Eejpdvpr0-Pelmsd7-Jrhcm therm. (VSL#3) 112.5 billion cell cap Take 2 capsules by mouth daily at bedtime. ondansetron (ZOFRAN) 4 mg tablet Take 1 tablet by mouth every 12 hours as needed for nausea/vomiting. metoprolol succinate ER (TOPROL XL) 25 mg 24 hr tablet Take 1 tablet by mouth daily at bedtime. fremanezumab-vfrm (AJOVY AUTOINJECTOR) 225 mg/1.5 mL auto-injector Inject 4.5 mL under the skin every 3 months. clobetasol (TEMOVATE) 0.05 % ointment Apply 1 application to affected area two times a day. buPROPion SR (WELLBUTRIN SR) 150 mg 12 hr tablet Take 1 tablet by mouth two times a day. buPROPion SR (WELLBUTRIN SR) 150 mg 12 hr tablet Take 1 tablet by mouth two times a day. ubrogepant (UBRELVY) 100 mg tablet Take 1 tablet by mouth at migraine onset. May repeat once in 2 hours as needed. tirzepatide (MOUNJARO) 10 mg/0.5 mL pen injector Inject 10 mg subcutaneously one time a week. Magnesium Citrate 150mg (Pure Encapsulations) Take 4 capsules daily. riboflavin, vitamin B2, (VITAMIN B-2) 100 mg tab Take 4 tablets by mouth once daily. coenzyme Q10 (COQ-10) 100 mg cap capsule Take 1 capsule by mouth twice daily. vitamin D3-folic acid 5,000 unit- 1 mg tab Take 5,000 Units by mouth once daily. multivitamin tablet Take 1 tablet by mouth once daily. No current facility-administered medications on file prior to visit. [facility] SPECIALTY CLINICAL ASSESSMENT - INFLAMMATORY CONDITIONS V6: Assessment to use: Refill Date of influenza vaccination reminder: 08/15/2023 Date of most recent vaccination assessment: 08/15/2023 Treatment Plan Information: Simponi 50mg sub-q weekly Est. Tx Plan Start Date: 03/13/2022 Estimated Start Date Info: Patient is transitioning to to home injections Est. Estimated Treatment Duration: Until lack of efficacy Indy Severino ([place]) documented in this encounter [facility] 08-04-2024 History of Present illness Narrative [facility] has been servicing patient for cycles/refills of Simponi. Benefits investigation was conducted, indicating that a prior authorization renewal is required. Prior authorization was initiated via email and is pending review. Plan Name: [facility] Phone/ , opt [phone] Email: [email or web address] Indy Severino [facility] documented in this encounter [facility] 07-27-2024 Telephone encounter Note Plan/Patient s insurance requests 90 day supplies on maintenance medications for Home Delivery such as: Please see the attached order for Requested Prescriptions Pending Prescriptions Disp Refills rosuvastatin (CRESTOR) 5 mg tablet 90 tablet 0 Sig: Take 1 tablet by mouth once daily. If appropriate, e-script to [facility]. Thank you, Ayaz Nixon [facility] [phone] [facility] 07-27-2024 Miscellaneous Notes Plan/Patient s insurance requests 90 day supplies on maintenance medications for Home Delivery such as: Please see the attached order for Requested Prescriptions Pending Prescriptions Disp Refills rosuvastatin (CRESTOR) 5 mg tablet 90 tablet 0 Sig: Take 1 tablet by mouth once daily. If appropriate, e-script to [facility]. Thank you, Ayaz Nixon [facility] [phone] Call from pharmacy requesting refill. Requested Prescriptions Pending Prescriptions Disp Refills rosuvastatin (CRESTOR) 5 mg tablet 30 tablet 0 Sig: Take 1 tablet by mouth once daily. Patient last seen 07/25/2023 [place] aHys documented in this encounter [facility] 07-23-2024 Telephone encounter Note The following approved medication requests have been transmitted electronically. Requested Prescriptions Signed Prescriptions Disp Refills methocarbamol (ROBAXIN) 750 mg tablet 360 tablet 3 Sig: Take 1 tablet by mouth four times daily. Authorizing Provider: KYRA DUNCAN Diclofenac Potassium (CAMBIA) 50 mg pwpk 18 Packet 3 Sig: Take 1 Packet by mouth as needed for migraine headache. Can repeat dose in 2 hours, no more than 2 doses per day, or 2 days per week Authorizing Provider: KYRA DNUCAN APRN.MILLED RICE BROKER [facility] 07-23-2024 Miscellaneous Notes The following approved medication requests have been transmitted electronically. Requested Prescriptions Signed Prescriptions Disp Refills methocarbamol (ROBAXIN) 750 mg tablet 360 tablet 3 Sig: Take 1 tablet by mouth four times daily. Authorizing Provider: KYRA DUNCAN Diclofenac Potassium (CAMBIA) 50 mg pwpk 18 Packet 3 Sig: Take 1 Packet by mouth as needed for migraine headache. Can repeat dose in 2 hours, no more than 2 doses per day, or 2 days per week Authorizing Provider: KYRA DUNCAN APRN.CNP Which pharmacy is this to go to? Patient last seen 01/02/2024. documented in this encounter [facility] 07-22-2024 Telephone encounter Note Call from pharmacy requesting refill. Requested Prescriptions Pending Prescriptions Disp Refills rosuvastatin (CRESTOR) 5 mg tablet 30 tablet 0 Sig: Take 1 tablet by mouth once daily. Patient last seen 07/25/2023 [place] [facility] 07-22-2024 Telephone encounter Note Patient contacted pharmacy and requests refills as follows: Requested Prescriptions Pending Prescriptions Disp Refills leflunomide (ARAVA) 20 mg tablet 90 tablet 1 Sig: TAKE 1 TABLET BY MOUTH EVERY DAY The last encounter with Ajit Torre MD was 07/21/2024 RX INSTRUCTIONS: Patient aware RX escripted to mail away pharmacy. No need to notify patient. Patient has been identified by name and date of : Yes Previous orders were sent to an outside pharmacy; however, patient would like to establish care with [facility], and new orders are preferred. Please send new ERx to [facility] and we can try to fill for patient instead. Once approved, please discontinue old orders in Epic to mitigate any duplicate therapy. Thank you! [facility] [phone] (phone) [phone] (fax) [facility] 07-22-2024 Miscellaneous Notes Patient contacted pharmacy and requests refills as follows: Requested Prescriptions Pending Prescriptions Disp Refills leflunomide (ARAVA) 20 mg tablet 90 tablet 1 Sig: TAKE 1 TABLET BY MOUTH EVERY DAY The last encounter with Ajit Torre MD was 07/21/2024 RX INSTRUCTIONS: Patient aware RX escripted to mail away pharmacy. No need to notify patient. Patient has been identified by name and date of : Yes Previous orders were sent to an outside pharmacy; however, patient would like to establish care with [facility], and new orders are preferred. Please send new ERx to [facility] and we can try to fill for patient instead. Once approved, please discontinue old orders in Epic to mitigate any duplicate therapy. Thank you! [facility] [phone] (phone) [phone] (fax) documented in this encounter [facility] 07-22-2024 Telephone encounter Note Which pharmacy is this to go to? [facility] 07-22-2024 Telephone encounter Note Patient last seen 01/02/2024. [facility] 07-22-2024 Telephone encounter Note Patient has been identified by name and date of : Yes RX INSTRUCTIONS: Patient aware RX will be sent to pharmacy. No need to notify patient. LAST APPOINTMENT: 08/07/2022 UPCOMING APPOINTMENT: 09/01/2024 LABS: Hemoglobin (g/dL) Date Value 06/16/2024 13.7 12/27/2021 12.9 Hematocrit (%) Date Value 06/16/2024 41.5 12/27/2021 40.8 WBC (k/uL) Date Value 06/16/2024 4.15 12/27/2021 4.15 Platelet Count (k/uL) Date Value 06/16/2024 148 12/27/2021 191 AST Date Value Ref Range Status 06/16/2024 19 13 - 35 U/L Final ALT Date Value Ref Range Status 06/16/2024 18 7 - 38 U/L Final Creatinine Date Value Ref Range Status 06/16/2024 0.81 0.58 - 0.96 mg/dL Final Uric Acid Date Value Ref Range Status 01/23/2021 4.0 2.5 - 6.6 mg/dL Final Juany Castrejon MA [facility] 07-22-2024 Miscellaneous Notes Patient has been identified by name and date of : Yes RX INSTRUCTIONS: Patient aware RX will be sent to pharmacy. No need to notify patient. LAST APPOINTMENT: 08/07/2022 UPCOMING APPOINTMENT: 09/01/2024 LABS: Hemoglobin (g/dL) Date Value 06/16/2024 13.7 12/27/2021 12.9 Hematocrit (%) Date Value 06/16/2024 41.5 12/27/2021 40.8 WBC (k/uL) Date Value 06/16/2024 4.15 12/27/2021 4.15 Platelet Count (k/uL) Date Value 06/16/2024 148 12/27/2021 191 AST Date Value Ref Range Status 06/16/2024 19 13 - 35 U/L Final ALT Date Value Ref Range Status 06/16/2024 18 7 - 38 U/L Final Creatinine Date Value Ref Range Status 06/16/2024 0.81 0.58 - 0.96 mg/dL Final Uric Acid Date Value Ref Range Status 01/23/2021 4.0 2.5 - 6.6 mg/dL Final Juany Castrejon MA documented in this encounter [facility] 07-08-2024 Note Addended by: ADELE GIBSON on: 07/08/2024 02:15 PM Modules accepted: Orders [facility] Work Phone: 07-08-2024 Miscellaneous Notes Addended by: ADELE GIBSON on: 07/08/2024 02:15 PM Modules accepted: Orders Addended by: CARLOTTA CONSTANTINO on: 07/08/2024 02:01 PM Modules accepted: Orders MRI pended for provider review. Routing to provider. documented in this encounter [facility] 07-08-2024 Note Addended by: Sophie CONSTANTINO on: 07/08/2024 02:01 PM Modules accepted: Orders [facility] 07-08-2024 Telephone encounter Note MRI pended for provider review. Routing to provider. [facility] 07-07-2024 History of Present illness Narrative Kira Adhikari is a 38 year old female who presents for problem visit of dysuria. HPI: Kira has been having dysuria, urgency, frequency, and incomplete emptying for 3 days. Has been increasing hydration with no relief. OB History No obstetric history on file. 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: 02/14/2023 (Exact Date), Having periods Age at Menarche: Age at First : Age at Menopause: 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 Comments: Sexual Activity: Not Asked; No partner data on record Contraception: No contraception data on record PAST MEDICAL HISTORY 2011: Dyslipidemia No date: History of abnormal cervical Pap smear No date: hyperlipidemia Comment: slight elevation / no meds 12/2020: Inflammatory arthritis No date: Left arm pain No date: Liver disease Comment: elevated LFT's No date: Migraine with aura No date: Neck pain No date: Oral herpes No date: PCOS (polycystic ovarian syndrome) 12/2020: Spondylarthritis PAST SURGICAL HISTORY No date: CONIZATION OF CERVIX, LEEP 08/19/2016: NECK SURGERY HX Comment: Left C7 foraminotomy, Left C6-7 diskectomy - w/ benefit though continues to have pain (left side of neck, shooting pains in arm, left wrist and distal numbness) at age of 6 years: PAST SURGICAL HISTORY OF Comment: left inguinal hernia repair No date: PAST SURGICAL HISTORY OF Comment: Tonsillectomy FAMILY HISTORY Problem Relation Age of Onset Hyperlipidemia Mother baseline TC 300's, smoker Obesity Father Hyperlipidemia Father Hypertension Father Social History Tobacco Use Smoking status: Never Smokeless tobacco: Never Vaping Use Vaping Use: Never used Substance Use Topics Alcohol use: Not Currently Comment: none since 2019 Drug use: No Current Outpatient Medications Medication Sig pregabalin (LYRICA) 25 mg capsule Take 1 capsule by mouth two times a day as needed for up to 30 days. golimumab (SIMPONI) 50 mg/0.5 mL Inject 50mg ( 1 pen) subcutaneously every 4 weeks rosuvastatin (CRESTOR) 5 mg tablet Take 1 tablet by mouth once daily. Kwtkdmat6-Owrude0-Oefvo therm. (VSL#3) 112.5 billion cell cap Take 2 capsules by mouth daily at bedtime. ondansetron (ZOFRAN) 4 mg tablet Take 1 tablet by mouth every 12 hours as needed for nausea/vomiting. metoprolol succinate ER (TOPROL XL) 25 mg 24 hr tablet Take 1 tablet by mouth daily at bedtime. fremanezumab-vfrm (AJOVY AUTOINJECTOR) 225 mg/1.5 mL auto-injector Inject 4.5 mL under the skin every 3 months. leflunomide (ARAVA) 20 mg tablet TAKE 1 TABLET BY MOUTH EVERY DAY clobetasol (TEMOVATE) 0.05 % ointment Apply 1 application to affected area two times a day. buPROPion SR (WELLBUTRIN SR) 150 mg 12 hr tablet Take 1 tablet by mouth two times a day. buPROPion SR (WELLBUTRIN SR) 150 mg 12 hr tablet Take 1 tablet by mouth two times a day. ubrogepant (UBRELVY) 100 mg tablet Take 1 tablet by mouth at migraine onset. May repeat once in 2 hours as needed. tirzepatide (MOUNJARO) 10 mg/0.5 mL pen injector Inject 10 mg subcutaneously one time a week. methocarbamol (ROBAXIN) 750 mg tablet Take 1 tablet by mouth four times daily. Diclofenac Potassium (CAMBIA) 50 mg pwpk Take 1 Packet by mouth as needed for migraine headache. Can repeat dose in 2 hours, no more than 2 doses per day, or 2 days per week Magnesium Citrate 150mg (Pure Encapsulations) Take 4 capsules daily. riboflavin, vitamin B2, (VITAMIN B-2) 100 mg tab Take 4 tablets by mouth once daily. coenzyme Q10 (COQ-10) 100 mg cap capsule Take 1 capsule by mouth twice daily. vitamin D3-folic acid 5,000 unit- 1 mg tab Take 5,000 Units by mouth once daily. multivitamin tablet Take 1 tablet by mouth once daily. No current facility-administered medications for this visit. Allergies As of Date: 07/07/2024 Allergen Noted Reaction DILAUDID [HYDROMORPHONE] 08/06/2016 Itching FENTANYL 08/06/2016 Itching SULFA (SULFONAMIDE ANTIBIOTICS) 08/06/2016 Rash Fully Assessed 01/15/2024 REVIEW OF SYSTEMS Bladder: No gross hematuria, or incontinence. + urgency, frequency, incomplete emptying Allergies and current medication updated:Yes EXAM: LMP 02/14/2023 GENERAL: pleasant, female in no apparent distress HEENT: Normocephalic, atraumatic, mucus membranes moist, and no lesions CHEST: Normal inspiratory effort NEURO: alert and oriented x3,exam grossly non-focal EXTREMITIES: normal ASSESSMENT AND PLAN: 1. Dysuria - ICD9: 788.1, ICD10: R30.0 (primary diagnosis) 2. Urinary urgency - ICD9: 788.63, ICD10: R39.15 3. Urinary frequency - ICD9: 788.41, ICD10: R35.0 - UA dip + for trace hemoglobin, trace leukocytes - Rx for Macrobid and Pyridium sent - Push fluids - Urine culture sent Elaine Velasco APRN.ARELY Medical Decision Making: Problems: Low: Acute, uncomplicated illness or injury Data: Unique test result(s) reviewed: 1 Unique test(s) ordered: 2 Risk: Low: Low risk from testing/treatment Moderate: Drug management Medical Decision Making Level: 4 - Moderate documented in this encounter [facility] 06-25-2024 History of Present illness Narrative Images from the original note were not included. Episode Visit Count: 4 Therapist That Will Accept/Oversee The Plan Of Care: Beatriz Melissa Start of Care Date: 05/04/24 Onset Date: 03/04/24 [facility] PHYSICAL THERAPY DISCONTINUANCE OF CARE PLAN OF CARE UPDATE: Assessment: Kira Adhikari is discontinued from Physical Therapy services due to maximal benefit.. Patient was seen for 4 visits from Start of Care Date: 05/04/24 to 06/25/2024 and treatment included: Therapeutic exercise, Manual therapy, and Self-detention management. Patient has seen temporary improvements with PT, but symptoms remain and are affecting her ability to work, sleep, and function on a daily basis. At this time PT will be discharged due to lack of progress made and patient will be referred back to referring physician for updated plan of care. Goals updated on 06/25/2024. Goals for Episode of Care: created on 05/04/24 through 07/04/24 Independent in a Home Exercise Program. Met Patient will decrease pain rating by 2 points to meet minimal clinical important difference for numeric pain rating scale. Not met Restore pain free cervical ROM to WNL to allow for decreased pain and improved functional mobility. Not met Sleep throughout the night without pain/symptoms. Not met Patient will be able to tolerate work activities for 8 hours without increased symptoms. Not met SUBJECTIVE: Patient has had continued numbness and tingling down the arm, and her pain is keeping her up at night which is leading to a host of other issues. 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 Pain: Pain Pain Level: 6 Pain Location: Neck - Left, Neck - Right, Arm - Right, Thoracic Spine - Right Description: Aching, Sore, Shooting, Numbness, Tingling Frequency: Intermittent PROMIS Scales 06/01/2024 05/04/2024 09/16/2023 Higher is Better Phys Func - Score 41 (mild dysfunction) 41 (mild dysfunction) 53 (within normal limits) Phys Func - Percentile 18 18 62 Self-Eff Symptom - Score 37 (Low) 35 (Low) 56 (Average) Self-Eff Symptom - Percentile 10 7 73 T-scores: mean of general population = 50. 5 points is clinically meaningfully difference Percentiles provide an indication of how the patient's score ranks in relation to the general population. Higher percentile rankings indicate better function/quality of life. 50th percentile is the average of the general population and indicates half of respondents had a worse score. OBJECTIVE MEASURES WITH LEVEL OF FUNCTION: Cervical Spine ROM Cervical Flexion AROM: Minimal limitation, Peripheralizing Cervical Extension AROM: Moderate limitation Cervical Side-Bend Right AROM: Moderate limitation Cervical Side-Bend Left AROM: Moderate limitation Cervical Rotation Right AROM: Minimal limitation Cervical Rotation Left AROM: Minimal limitation TREATMENT: Manual Therapy: 2: Manual cervical traction x5 min Dry Needling: (1) 30 and 40 mm needles to B C4 and C6 with placement of needles plus TENS. 10 Hz leads 1 and 2 2.5-3.0 V, leads 3 and 4 3.0-3.5 V x10 min Skilled Intervention: Manual skills to improve joint mobility, ROM, and decrease pain. Utilized anatomy knowledge of the therapist, and assessment of patient's response to intervention. Billing Manual TherapyTreatment Minutes: 24 Skilled Treatment Time Minutes (timed and untimed codes): 24 Total Session Time (minutes): 24 Session Start Time : 945 Session Stop Time : 101 Beatriz Melissa PT documented in this encounter [facility] 06-24-2024 Telephone encounter Note Procedure: Cervical MRI Procedure Date: 07/01/2024 Auth Status: DENIED Denial Rationale: A request was received from your provider for an MRI of the cervical (neck) spine. After review of the clinical information, it has been determined that this imaging study is not medically necessary. There are no abnormal physical examination findings, and there is no documentation that you have participated in a six-week course of conservative treatment. Which must include a minimum of four physical therapy (PT) sessions directed towards your neck. PT must be completed before the MRI will be considered for approval. Physician directed PT and/or a home exercise program does not meet this requirement. After completion of PT, an in-person clinical re-evaluation with a specialist is required to determine the ongoing medical necessity of the requested service. Additionally, the last PT notes states that you will benefit from ongoing skilled PT services to progress towards your goals. PT Sessions: 05/04/2024, 05/20/2024, and 06/01/2024 Informed patient via telephone of MRI denial and need for additional PT session. Patient to complete 4th PT session on 06/25/2024 to keep 07/01/2024 MRI appointment. Advised patient to contact Radiology Department to rerun insurance authorization. Patient verbalized understanding and voiced no additional questions/concerns. [facility] 06-24-2024 Miscellaneous Notes Procedure: Cervical MRI Procedure Date: 07/01/2024 Auth Status: DENIED Denial Rationale: A request was received from your provider for an MRI of the cervical (neck) spine. After review of the clinical information, it has been determined that this imaging study is not medically necessary. There are no abnormal physical examination findings, and there is no documentation that you have participated in a six-week course of conservative treatment. Which must include a minimum of four physical therapy (PT) sessions directed towards your neck. PT must be completed before the MRI will be considered for approval. Physician directed PT and/or a home exercise program does not meet this requirement. After completion of PT, an in-person clinical re-evaluation with a specialist is required to determine the ongoing medical necessity of the requested service. Additionally, the last PT notes states that you will benefit from ongoing skilled PT services to progress towards your goals. PT Sessions: 05/04/2024, 05/20/2024, and 06/01/2024 Informed patient via telephone of MRI denial and need for additional PT session. Patient to complete 4th PT session on 06/25/2024 to keep 07/01/2024 MRI appointment. Advised patient to contact Radiology Department to rerun insurance authorization. Patient verbalized understanding and voiced no additional questions/concerns. documented in this encounter [facility] 06-18-2024 History of Present illness Narrative [facility] Refill Assessment Medication(s): Simponi Patient's current medication list and adherence status to current therapy were reviewed by Specialty Pharmacy clinical pharmacist to identify any new drug interactions or non-compliance to therapy. Therapy continues to be appropriate for disease, patient response, and medical condition. Verification of therapeutic benefit and effectiveness with current therapy was completed. Adverse events, barriers in adherence, and side effects were assessed and addressed if applicable. Will proceed with refill with no changes in therapy - patient progressing towards achieving therapeutic goals based on medication-specific laboratory parameters, disease state markers and outcomes. 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 Med/dose confirmed: Yes Supplies needed: Bandages Missed doses: No Estimated days supply on hand: 0 Next cycle/dose due: 06/26/24 Copay amount: 0 Delivery method: FedEx Signature required: No Delivery address: [address] [place] [id number] Delivery date: 06/23/24 Questions or concerns for the pharmacist?: No Did you have any side effects believed to be related to this medication, that resulted in hospitalization?: No Current Outpatient Medications on File Prior to Visit Medication Sig pregabalin (LYRICA) 25 mg capsule Take 1 capsule by mouth two times a day as needed for up to 30 days. golimumab (SIMPONI) 50 mg/0.5 mL Inject 50mg ( 1 pen) subcutaneously every 4 weeks rosuvastatin (CRESTOR) 5 mg tablet Take 1 tablet by mouth once daily. Gcujvxby0-Nuipgn1-Kuxot therm. (VSL#3) 112.5 billion cell cap Take 2 capsules by mouth daily at bedtime. ondansetron (ZOFRAN) 4 mg tablet Take 1 tablet by mouth every 12 hours as needed for nausea/vomiting. metoprolol succinate ER (TOPROL XL) 25 mg 24 hr tablet Take 1 tablet by mouth daily at bedtime. fremanezumab-vfrm (AJOVY AUTOINJECTOR) 225 mg/1.5 mL auto-injector Inject 4.5 mL under the skin every 3 months. leflunomide (ARAVA) 20 mg tablet TAKE 1 TABLET BY MOUTH EVERY DAY clobetasol (TEMOVATE) 0.05 % ointment Apply 1 application to affected area two times a day. buPROPion SR (WELLBUTRIN SR) 150 mg 12 hr tablet Take 1 tablet by mouth two times a day. buPROPion SR (WELLBUTRIN SR) 150 mg 12 hr tablet Take 1 tablet by mouth two times a day. ubrogepant (UBRELVY) 100 mg tablet Take 1 tablet by mouth at migraine onset. May repeat once in 2 hours as needed. tirzepatide (MOUNJARO) 10 mg/0.5 mL pen injector Inject 10 mg subcutaneously one time a week. methocarbamol (ROBAXIN) 750 mg tablet Take 1 tablet by mouth four times daily. Diclofenac Potassium (CAMBIA) 50 mg pwpk Take 1 Packet by mouth as needed for migraine headache. Can repeat dose in 2 hours, no more than 2 doses per day, or 2 days per week Magnesium Citrate 150mg (Pure Encapsulations) Take 4 capsules daily. riboflavin, vitamin B2, (VITAMIN B-2) 100 mg tab Take 4 tablets by mouth once daily. coenzyme Q10 (COQ-10) 100 mg cap capsule Take 1 capsule by mouth twice daily. vitamin D3-folic acid 5,000 unit- 1 mg tab Take 5,000 Units by mouth once daily. multivitamin tablet Take 1 tablet by mouth once daily. No current facility-administered medications on file prior to visit. [facility] Visit Assessment - Inflammatory Conditions: Assessment to use: Refill Vaccination Assessment: Date of influenza vaccination reminder: 08/15/2023 Date of most recent vaccination assessment: 08/15/2023 Treatment Plan Information: Treatment Plan Information: Simponi 50mg sub-q weekly Est. Tx Plan Start Date: 03/13/2022 Estimated Start Date Info: Patient is transitioning to to home injections Estimated Treatment Duration: Until lack of efficacy Indy Severino ([place]) documented in this encounter [facility] 06-07-2024 Miscellaneous Notes Last 3 Encounter BP Readings: Date: BP: 01/02/2024 119/68 12/24/2023 135/71 06/26/2023 100/70 LDL:HDL RATIO Applies to members that are diet and Exercise controlled LDL:HDL RATIO does not apply to members on a statin Last 3 LDL readings: LDL Cholesterol (mg/dL) Date Value 01/29/2023 81 10/04/2022 195 07/03/2022 226 01/23/2021 179 02/03/2020 178 No results found for: LDLCHOLDIR LDL:HDL Ratio Date Value Ref Range Status 01/29/2023 1.59 <2.54 Final Comment: Reference: 1. National Cholesterol Education Program ATP III Guideline At-A-Glance Quick Desk Reference: National Heart, Lung, and Blood [place]. National Institutes of Health. 2001: NIH Publication No. 01-3305. 2. An International Atherosclerosis Society position paper: global recommendations for the management of dyslipidemia: executive summary, Atherosclerosis. 2014: 232(2):410-413. Hemoglobin A1C (%) Date Value 10/04/2022 4.9 01/23/2021 5.2 Lab Results Component Value Date HBA1C 4.9 10/04/2022 HBA1C 5.2 01/23/2021 MEDICATIONS PER RX DATABASE ROSUVASTATIN METOPROLOL SUCCINATE, AJOVY, CAMBIA (PRN), UBRELVY (PRN) Adherent with medication refills YES Date Verified 06/07/2024 Is member submitting receipts for Reimbursement NO Is member eligible for medication reimbursement Yes Is Employee Health Plan primary Yes Member resides in [facility] documented in this encounter [facility] 06-07-2024 Note Formatting of this n ote is different from the original. Last 3 Encounter BP Readings: Date: BP: 01/02/2024 119/68 12/24/2023 135/71 06/26/2023 100/70 LDL:HDL RATIO Applies to members that are diet and Exercise controlled LDL:HDL RATIO does not apply to members on a statin Last 3 LDL readings: LDL Cholesterol (mg/dL) Date Value 01/29/2023 81 10/04/2022 195 07/03/2022 226 01/23/2021 179 02/03/2020 178 No results found for: LDLCHOLDIR LDL:HDL Ratio Date Value Ref Range Status 01/29/2023 1.59 <2.54 Final Comment: Reference: 1. National Cholesterol Education Program ATP III Guideline At-A-Glance Quick Desk Reference: National Heart, Lung, and Blood [place]. National Institutes of Health. 2001: NIH Publication No. 01-3305. 2. An International Atherosclerosis Society position paper: global recommendations for the management of dyslipidemia: executive summary, Atherosclerosis. 2014: 232(2):410-413. Hemoglobin A1C (%) Date Value 10/04/2022 4.9 01/23/2021 5.2 Lab Results Component Value Date HBA1C 4.9 10/04/2022 HBA1C 5.2 01/23/2021 MEDICATIONS PER RX DATABASE ROSUVASTATIN METOPROLOL SUCCINATE, AJOVY, CAMBIA (PRN), UBRELVY (PRN) Adherent with medication refills YES Date Verified 06/07/2024 Is member submitting receipts for Reimbursement NO Is member eligible for medication reimbursement Yes Is Employee Health Plan primary Yes Member resides in [facility] 06-04-2024 History of Present illness Narrative Episode Visit Count: 3 Therapist That Will Accept/Oversee The Plan Of Care: Beatriz Melissa Start of Care Date: 05/04/24 Onset Date: 03/04/24 REHABILITATION AND SPORTS THERAPY PHYSICAL THERAPY TREATMENT NOTE ASSESSMENT: Kira Adhikari tolerated the session with decreased symptoms and expected muscle soreness. 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 The patient will continue to benefit from ongoing skilled physical therapy to progress toward set goals. PLAN FOR NEXT VISIT: Continue manual for symptom modulation SUBJECTIVE: Patient's buzzing in her hand has eased, and actually the pain in her neck has crossed over to the Left side now to be worse than the R Pain: Pain Pain Level: 4 Pain Location: Neck - Left Description: Aching, Sore, Sharp Frequency: Intermittent OBJECTIVE MEASURES WITH LEVEL OF FUNCTION: Palpation to paraspinals noted below reproduces pain TREATMENT: Manual Therapy: 1: STM and CFM to R upper trap, masster 2: Manual cervical traction x5 min Dry Needling: (1) 30 and 40 mm needles to B C4 and C6 with placement of needles plus TENS. 10 Hz leads 1 and 2 2.5-3.0 V, leads 3 and 4 3.0-3.5 V x10 min Skilled Intervention: Manual skills to improve joint mobility, ROM, and decrease pain. Utilized anatomy knowledge of the therapist, and assessment of patient's response to intervention. Billing Manual TherapyTreatment Minutes: 42 Skilled Treatment Time Minutes (timed and untimed codes): 42 Total Session Time (minutes): 42 Session Start Time : 1230 Session Stop Time : 1312 Beatriz Melissa PT documented in this encounter [facility] 05-20-2024 History of Present illness Narrative Episode Visit Count: 2 Therapist That Will Accept/Oversee The Plan Of Care: Beatriz Melissa Start of Care Date: 05/04/24 Onset Date: 03/04/24 REHABILITATION AND SPORTS THERAPY PHYSICAL THERAPY TREATMENT NOTE ASSESSMENT: Kira Adhikari tolerated the session with decreased symptoms and no issues. She demonstrated improvements in neck pain and n/t into the 4th and 5th right handed digits today. The patient will continue to benefit from ongoing skilled physical therapy to progress toward set goals. PLAN FOR NEXT VISIT: Continue manual as needed, progress exercises per symptom response SUBJECTIVE: Patient had good release of the suboccipital and scapular area last time, but the neck never fully let go. Notes that she is having a good day today, but there are times her migraines have been miserable Pain: Pain Pain Level: 6 Pain Location: Neck - Right Description: Sharp, Aching, Sore Frequency: Continuous OBJECTIVE MEASURES WITH LEVEL OF FUNCTION: R C4 paraspinals reproduce NGUYEN symptoms TREATMENT: Therapeutic Exercise: 1: *Supine DNF 6x10 sec holds, 2-3x/day 2: *GTB W's with chin tuck 3x10 Skilled Intervention: Patient was educated in proper exercise technique and purpose for exercises. Skilled judgment was used in selection of appropriate interventions. Provided written instruction for home exercise program to facilitate proper performance and compliance. Correct performance of therapeutic exercises was facilitated with verbal, visual, and tactile cuing. Manual Therapy: 1: STM and CFM to R upper trap, masster 2: Manual cervical traction x5 min Dry Needling: (1) 30 and 40 mm needle to B C4 and C6 paraspinals in clock technique plus TENS. 150 Hz, leads 1 and 2 6.0 V x10 min Skilled Intervention: Manual skills to improve joint mobility, ROM, and decrease pain. Utilized anatomy knowledge of the therapist, and assessment of patient's response to intervention. Self-[facility] Management: 1: Long discussion on home traction unit options and how to obtain them Skilled Intervention: Skilled judgment in the selection of proper modification for activity of daily living/home management based on clinical presentation, deficits, and needs. Reviewed patient specific diagnosis in relation to activities of daily living/home management. Activity progression based on professional judgement. Billing Therapeutic Exercise Treatment Minutes: 5 Manual TherapyTreatment Minutes: 35 Self-Care/Home Management Treatment Minutes: 8 Skilled Treatment Time Minutes (timed and untimed codes): 48 Total Session Time (minutes): 48 Session Start Time : 956 Session Stop Time : 1044 Beatriz Melissa PT documented in this encounter [facility] 05-19-2024 History of Present illness Narrative Images from the original note were not included. [facility] Date: May 19, 2024 - 8:58 AM Chief Complaint: neck pain __ SUBJECTIVE: Ms. Adhikari presents to the [facility] for a follow up appointment regarding neck pain. She states that since the last visit symptoms have been persistent. The pain is located in the right posterior cervical region and radiates to the left upper extremity along the posterior aspect to the level of the fingers (ulnar distribution). // The pain is described as aching, radiating, and tingling and is rated as 6 on a scale of 0-10. Symptoms interfere with physical activity, walking, sleeping, sitting, bathing, driving, cooking, household cleaning, lifting, and social activities. The pain is exacerbated by leaning forward or picking up things. The pain is mitigated by keeping her head straight. REVIEW OF SYSTEMS: Constitutional: (-) Fever (-) Night Sweats (-) Weight Gain (-) Weight Loss (-) Fatigue Cardiovascular: (-) Chest Pain (-) Palpitations (-) Lightheadedness (-) Swelling of Ankles (-) Hx Heart Surgery Respiratory: (-) Shortness of Breath (-) Cough (-) Wheezing (-) Snoring Gastrointestinal: (-) Incontinence (-) Abdominal Pain (-) Diarrhea (-) Constipation (-) Nausea/Vomiting (-) Heart Burn Endocrine: (-) Thyroid Disorder (-) Diabetes Hematologic: (-) Prolonged Bleeding (-) Easy Bruising Genitourinary: (-) Incontinence (-) Frequency (-) Urinary Urgency Skin: (-) Rashes (-) Itching (-) Other Lesions Neurologic: (+) Headache (-) Double Vision (-) Confusion (-) Paralysis Psychiatric: (-) Depression (-) Anxiety __ PROMIS 05/10/2024 PROMIS CAT Pain Interference PROMIS Pain Interference T-Score (range: 10 - 90) 62 (moderate) PROMIS Pain Interference Percentile 12 05/04/2024 09/16/2023 08/19/2023 PROMIS CAT Physical Function T-Score 41 (mild dysfunction) 53 (within normal limits) 41 (mild dysfunction) Percentile 18* 62 18* Percentiles provide an indication of how a patient s score ranks in relation to the [place] general population. 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 PAST SURGICAL HISTORY Procedure Laterality Date CONIZATION OF CERVIX, LEEP NECK SURGERY HX 08/19/2016 Left C7 foraminotomy, Left C6-7 diskectomy - w/ benefit though continues to have pain (left side of neck, shooting pains in arm, left wrist and distal numbness) PAST SURGICAL HISTORY OF at age of 6 years left inguinal hernia repair PAST SURGICAL HISTORY OF Tonsillectomy ALLERGIES Allergen Reactions Dilaudid [Hydromorp* Itching Fentanyl Itching Sulfa (Sulfonamide * Rash Current Outpatient Medications Medication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 (1) 30 and 40 mm needle to R C3 and C6 paraspinals in clock technique plus TENS. 150 Hz, leads 1 and 2 6.0 V x10 min (patient consent gained, 7 needles in, 7 needles out) Skilled Intervention: Manual skills to improve joint mobility, ROM, and decrease pain. Utilized anatomy knowledge of the therapist, and assessment of patient's response to intervention. Billing * Evaluation Low Complexity: 1 Unit Manual TherapyTreatment Minutes: 30 Skilled Treatment Time Minutes (timed and untimed codes): 44 Total Session Time (minutes): 44 Session Start Time : 1230 Session Stop Time : 1314 Beatriz Melissa PT documented in this encounter [facility] 04-23-2024 Telephone encounter Note Ambulatory Pharmacy Prior Authorization Note Provider Intervention Required?: No- Pharmacy completed on your behalf. Rx Plan: EHP Drug: AJOVY (fremanezumab-vfrm) injection 225MG/1.5ML auto-injectors Cover My Meds King: [id number] Determination: Approved Prior Authorization/Case #: [id number] Prior Authorization Expiration: 10/12/24 Time to PA Submission in CMM: 15 min Time to PA Determination in CMM: Same day Additional Information: PLEASE NOTE: Pt will need follow up office visit to review/document efficacy and tolerability of treatment before prior auth expiration. Please ensure a future follow up appt is scheduled with your patient. This will ensure no interruption in patient's ability to obtain medication refills. Prescriptions will now be processed through [facility] for determination of next steps. For questions relating to this submission, please contact [facility] at [phone] [facility] Work Phone: 04-23-2024 Miscellaneous Notes Ambulatory Pharmacy Prior Authorization Note Provider Intervention Required?: No- Pharmacy completed on your behalf. Rx Plan: EHP Drug: AJOVY (fremanezumab-vfrm) injection 225MG/1.5ML auto-injectors Cover My Meds King: [id number] Determination: Approved Prior Authorization/Case #: [id number] Prior Authorization Expiration: 10/12/24 Time to PA Submission in CMM: 15 min Time to PA Determination in CMM: Same day Additional Information: PLEASE NOTE: Pt will need follow up office visit to review/document efficacy and tolerability of treatment before prior auth expiration. Please ensure a future follow up appt is scheduled with your patient. This will ensure no interruption in patient's ability to obtain medication refills. Prescriptions will now be processed through [facility] for determination of next steps. For questions relating to this submission, please contact [facility] at [phone] [facility] received prescription(s) for AJOVY (fremanezumab-vfrm) injection 225MG/1.5ML auto-injectors . Benefits investigation was conducted, indicating that a prior authorization is required. PA was initiated and pending review through [employer]. All pertinent clinical information was submitted to insurance. CMM King: [id number] Ordering Provider: Sunil Owen DO Murtaugh, Alisha, RN [facility] P: , F: documented in this encounter [facility] 04-09-2024 Telephone encounter Note [facility] received prescription(s) for AJOVY (fremanezumab-vfrm) injection 225MG/1.5ML auto-injectors . Benefits investigation was conducted, indicating that a prior authorization is required. PA was initiated and pending review through [employer]. All pertinent clinical information was submitted to insurance. CMM King: [id number] Ordering Provider: Sunil Owen DO Murtaugh, Alisha, RN [facility] P: , F: [facility] 03-25-2024 Telephone encounter Note Shonda, We're following up on the prior authorization request submitted below. The claim is still rejecting on our end, indicating prior authorization is still required. Have you received a response from the insurance? Please review and let us know! Thank you, Georgia Aparicio [facility] 03-25-2024 Miscellaneous Notes Shonda, We're following up on the prior authorization request submitted below. The claim is still rejecting on our end, indicating prior authorization is still required. Have you received a response from the insurance? Please review and let us know! Thank you, Georgia Aparicio documented in this encounter [facility] 03-25-2024 Telephone encounter Note Voicemail received 03/25/2024 at 1357: Hi, this is Kira Adhikari. I was calling to schedule an appointment with Dr. Cheng and trying to get a hold of the office. If you could please give me a call, my phone number is [phone]. Thank you. Bye. Patient has appointment scheduled: Date: April 12, 2024 Time: 3:30 PM Location: [address] [place] [address] Routing to [facility] for appointment scheduling. [facility] 03-25-2024 Miscellaneous Notes Voicemail received 03/25/2024 at 1357: Hi, this is Kira Adhikari. I was calling to schedule an appointment with Dr. Cheng and trying to get a hold of the office. If you could please give me a call, my phone number is [phone]. Thank you. Julitae. Patient has appointment scheduled: Date: April 12, 2024 Time: 3:30 PM Location: [address] [place] [address] Routing to [facility] for appointment scheduling. documented in this encounter [facility] 03-23-2024 Miscellaneous Notes Patient contacted pharmacy and requests refills as follows: Requested Prescriptions Pending Prescriptions Disp Refills rosuvastatin (CRESTOR) 5 mg tablet 90 tablet 0 Sig: Take 1 tablet by mouth once daily. The last encounter with Sea Almendarez APRN.CNP was 12/22/2023 RX INSTRUCTIONS: Patient aware RX escripted to mail away pharmacy. No need to notify patient. Patient has been identified by name and date of : Yes Ayaz De Jesus RPh Pharmacist Refill Authorization Review Name: Kira Adhikari Date: 03/22/2024 Time: 7:52 AM Refill authorization request(s) received and reviewed under effective consult agreement. Upon review, did confirm that an active patient-provider relationship exists and that the prescriber is a participating physician under the consult agreement. Last office visit in this department: Visit date not found Last distance health visit in this department: 07/25/2023 Melva Spencer APRN.CNP Next appointment in this department: Visit date not found The medication(s) fall under the following categories: Category 3: Medication(s) does not qualify for pharmacist renewal due to labs being out of range and needing a physician consult and review. Renewal request sent to provider for review. Requested Prescriptions Pending Prescriptions Disp Refills rosuvastatin (CRESTOR) 5 mg tablet 90 tablet 0 Sig: Take 1 tablet by mouth once daily. Number of refills approved in this encounter: 0 Number of refills forwarded to provider for review: 1 Number of refills denied in this encounter: 0 Noreen Salgado RPh documented in this encounter [facility] 03-23-2024 Telephone encounter Note Patient contacted pharmacy and requests refills as follows: Requested Prescriptions Pending Prescriptions Disp Refills rosuvastatin (CRESTOR) 5 mg tablet 90 tablet 0 Sig: Take 1 tablet by mouth once daily. The last encounter with Sea Almendarez APRN.CNP was 12/22/2023 RX INSTRUCTIONS: Patient aware RX escripted to mail away pharmacy. No need to notify patient. Patient has been identified by name and date of : Yes Ayaz De Jesus RPh [facility] 03-22-2024 Telephone encounter Note Pharmacist Refill Authorization Review Name: Kira Adhikari Date: 03/22/2024 Time: 7:52 AM Refill authorization request(s) received and reviewed under effective consult agreement. Upon review, did confirm that an active patient-provider relationship exists and that the prescriber is a participating physician under the consult agreement. Last office visit in this department: Visit date not found Last distance health visit in this department: 07/25/2023 Melva Spencer APRN.CNP Next appointment in this department: Visit date not found The medication(s) fall under the following categories: Category 3: Medication(s) does not qualify for pharmacist renewal due to labs being out of range and needing a physician consult and review. Renewal request sent to provider for review. Requested Prescriptions Pending Prescriptions Disp Refills rosuvastatin (CRESTOR) 5 mg tablet 90 tablet 0 Sig: Take 1 tablet by mouth once daily. Number of refills approved in this encounter: 0 Number of refills forwarded to provider for review: 1 Number of refills denied in this encounter: 0 Noreen Salgado RPh [facility] 03-18-2024 Miscellaneous Notes Ambulatory Pharmacy Prior Authorization Note Provider Intervention Required?: Yes- [facility] requires prior authorization to be submitted by the provider. EHP Form (Prescription Drug Formulary) Drug: AJOVY AUTOINJECTOR 225 mg/1.5 mL auto-injector (fremanezumab-vfrm) Formulary Alternatives: N/A Additional Information: n/a Please fax completed paperwork to [phone] or email to [email or web address]. [facility] cannot process prior authorizations sent via CoverMyMeds. For questions relating to this submission, please contact [facility] at [phone] documented in this encounter [facility] 03-17-2024 Miscellaneous Notes Third attempt to contact Patient. Called-no answer. Left voicemail requesting she contact our office via phone or [id number] to schedule with Dr. Freddie Zamudio Attempted to call Patient-no answer. Left voicemail relaying message below. Amparo Zamudio documented in this encounter [facility] 02-11-2024 Miscellaneous Notes Diarrhea x1 week following trip to [place]. Patient is questioning food poisoning vs possible parasite contracted. Is doing her best to get in fluids, electrolytes but does feel somewhat dry. Is taking imodium, Zofran, Pepto which haven't been very helpful. Mar Harvey APRN.ARELY documented in this encounter [facility] 01-02-2024 Instructions Kyra Duncan APRN.ARELY - 01/02/2024 10:18 AM EST AFTER VISIT CARE BOTOX INJECTION While these procedures can be extremely helpful as part of your headache treatment plan, they can irritate the muscles and tissues in your head, neck and shoulders. Proper follow-up care is important to avoid muscle spasms and temporary pain increase within the following 3-5 days after your clinic visit. Here are some tips to help decrease side-effects that may occur and maximize the effectiveness of your pain relief -HYDRATION Hydration is important to help flush out toxins and nourish your muscles and tissues. Drink 60-80 oz of non caffeinated fluid at least for 3 days after your visit. -REST Rest will help avoid further irritation of muscle and tissues. Remember that you need to give your body time to adjust. NO strenuous activity for at least the first 3 days after your visit. Gentle stretching, yoga, meditation or even swimming is OK and encouraged. -ICE/HEAT Since these procedures irritate muscles, there can be some swelling. Alternating ice and heat every 3-5 times per day may help decrease this, while also optimizing pain relief Use cool gel packs for ice for 10 min. Use a warm moist towel covered with a dry towel on neck and shoulders. Alternate stretching each side of the neck. -STRETCHING Slow, gentle stretching of the neck and shoulders once every hour is helpful to avoid muscle spasms and help release toxins. -TREAT MUSCLE SPASMS If you are already prescribed a muscle relaxer such as baclofen, tizanidine or flexoril, use as directed. If you do not have one, talk to your provider to find out if this would be safe for you to use. documented in this encounter [facility] 01-02-2024 Procedure note New Onabotulinum Toxin A (BotoxTM) for Migraine Indication: Chronic Intractable Migraine Treatment #: 1 Referral Expiration: 02/08/2024 Number of moderate-severe migraine days/month: 8 Number of mild migraine days/month: 22 Number of headache free days/month: 0 (0 headache-free hours) Migraine severity: 08/10 The patient has been assessed for disorders which could contribute to breathing or swallowing difficulty, and there is no contraindication with PREEMPT Botox. There is no documented allergic reaction/hypersensitivity to any botulinum toxin and there is no active infection at proposed injection site. HEADACHE SCORES: Headache Questions 01/09/2023 07/21/2023 01/01/2024 ID Migraine Screener: - 3 (Positive) - ER visits in the last year: - 2 - ER visits since last office visit: 0 - 0 Hospital stays in the last year: - 0 - Hospital stays since last office visit 0 - 0 Limited ADLs in the last month: 3 5 12 Days missed from work or school in the last month: 0 0 0 Days headache pain free in the last month: 20 25 3 Days per month with ALL of the following symptoms - decreased productivity, light sensitivity and nausea: 1 3 2 Initial improvement of headache after botox injection at last visit: Not applicable, I did not have a botox injection at my last visit - Not applicable, I did not have a botox injection at my last visit Days per month with mild/moderate face pain: - - - Days per month with severe face pain: - - - Days per month free from face pain: - - - PRN medication usage in the last month: 10 4 10 Patient impression of improvement since last visit: Much improved - No change HIT-6 01/09/2023 07/21/2023 01/01/2024 HIT-6 - - - HIT-6 48 (Little or no impact) 65 (Severe impact) 63 (Severe impact) LETICIA - 2/7 SCORES 01/09/2023 07/21/2023 01/01/2024 LETICIA-2 Score 0 0 0 LETICIA-7 Score - - - Pain Disability Index 03/29/2021 05/22/2021 PDI Score 45 22 Migraine Specific QOL - Higher scores indicate better HRQL 01/09/2023 07/21/2023 01/01/2024 Role Function-Restrictive Transformed Score (range: 0-100) 80 40 62.86 Role Function-Preventive Transformed Score (range: 0-100) 80 50 65 Emotional Function Transformed Score (range: 0-100) 80 46.67 73.33 PHQ-9 01/09/2023 07/21/2023 01/01/2024 Score 0 2 1 BP 119/68 Pulse 74 Resp 16 LMP 02/14/2023 (Exact Date) Patient name: Kira Adhikari : 1985 ALLERGIES Allergen Reactions Dilaudid [Hydromorp* Itching Fentanyl Itching Sulfa (Sulfonamide * Rash UNIVERSAL PROTOCOL / SAFETY CHECKLIST Procedure: Onabotulinum toxin A for migraine Informed Consent Consent Obtained: Written Bailey Protocol A moment to CARE was completed SIGN IN Personnel directly involved with the procedure wore the appropriate PPE Special Equipment: N/A Patient/Surrogate Stated/Verified: Patient name, Date of , Relevant allergies and Intended procedure TIME OUT Intended patient and procedure match the source document(s) Consent documented and matches the intended procedure No relevant labs, photos, and/or imaging studies were applicable for review. No correct side/site applicable for marking and visibility. Medications required for procedure verified. No fire risk assessment and interventions applicable. No implant(s) inserted. SIGN OUT No specimen collected. No instruments, equipment or retained foreign bodies applicable. Post-procedure follow-up management communicated and Plan of Care Visit completed when applicable Written Consent Obtained: Written LOT #: [id number] Expiration Date: Month: 6 Year: 2025 Injection Sites Left (Units) Left (Sites) Right (Units) Right (Sites) TOTAL (Units) Blasting Entryman 5 1 5 1 10 Procerus Units: 5 Sites: 1 5 Frontalis 10 2 10 2 20 Temporalis optional follow the pain 20 5 4 1 20 5 4 1 50 Occipitalis optional follow the pain 15 5 3 1 15 5 3 1 40 Cervical PSP 10 2 10 2 20 Trapezius optional follow the pain 15 12.5 3 2 15 12.5 3 2 55 Total Units used: 200 Total Units wasted: 0 Prior Therapies Duration of Use Dose Side effect Other Therapies Nerve blocks Physical therapy Analgesic Diclofenac (Voltaren, Cataflam, Cambia) Cambia works well. Generic diclofenac is not effective Indomethacin (Indocin) no benefit Ketorolac (Toradol) no benefit Meperidine (Demerol) Morphine (Mellissa, Ms Contin) Oxycodone Oxycodone/Acetaminophen (Percocet) Anti-Anxiety Diazepam (Valium) Anti-Convulsant Divalproex sodium (Depakote) Pregabalin (Lyrica) Topiramate (Topamax, Trokendi XL, Qudexy) no benefit Anti-Depressant and Antipsychotic Bupropion (Wellbutrin) Duloxetine (Cymbalta) Nortriptyline (Pamelor, Aventyl) Antiemetics Metoclopramide Ondansetron zofran Anti-Migraine Lasmiditan (Reyvow) Rizatriptan (Maxalt) ineffective Sumatriptan (Imitrex, Sumavel) ineffective Blood Pressure Metoprolol (Lopressor,Toprol XL) Propranolol (Inderal) initial benefit MABs Erenumab (Aimovig) Fremanezumab (Ajovy) GEPANTS Rimegepant (Nurtec) no benefit Botulinum Toxin Onabotulinum Toxin A (Botox), Onabotulimum Toxin A (Botox) 6 years loss of efficacy, done with gen neuro outside of center Muscle Relaxer Baclofen (Lioresal) ineffective Chlorzoxazone (Parafon Forte) Cyclobenzaprine (Flexeril) ineffective Metaxalone (Skelaxin) Methocarbamol (Robaxin) lost efficacy Supplements CoQ10 Magnesium Riboflavin Other Medications Cyproheptadine (Periactin) Dexamethasone (Decadron) Diphenhydramine (Benadryl) Methylprednisolone (Medrol) Prednisone Over the Counter Medications Acetaminophen (Tylenol) Acetaminophen/Aspirin/Caffeine (Excedrin, Goody s) Aspirin Ibuprofen (Advil, Motrin) Naproxen sodium (Aleve) Kyra Duncan APRN.ARELY documented in this encounter [facility] 11-14-2023 History of Present illness Narrative Order placed for weight management patient in Maddie Moraes's absence. Elaine Velasco APRN.ARELY documented in this encounter [facility] 10-15-2023 History of Present illness Narrative [facility] Refill Assessment Medication(s): Simponi Patient's current medication list and adherence status to current therapy were reviewed by Specialty Pharmacy clinical pharmacist to identify any new drug interactions or non-compliance to therapy. Therapy continues to be appropriate for disease, patient response, and medical condition. Verification of therapeutic benefit and effectiveness with current therapy was completed. Adverse events, barriers in adherence, and side effects were assessed and addressed if applicable. Will proceed with refill with no changes in therapy - patient progressing towards achieving therapeutic goals based on medication-specific laboratory parameters, disease state markers and outcomes. 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 Med/dose confirmed: Yes Supplies needed: No supplies needed Missed doses: No Estimated days supply on hand: 0 Next cycle/dose due: 10/22/23 Copay amount: 0 Payment confirmed: Yes Delivery method: FedEx Signature required: No Delivery address: [address] [place], [place] [id number] Delivery date: 10/21/23 Questions or concerns for the pharmacist?: No [facility] Visit Assessment - Inflammatory Conditions: Assessment to use: Refill Vaccination Assessment: Date of influenza vaccination reminder: 08/15/2023 Date of most recent vaccination assessment: 08/15/2023 Treatment Plan Information: Treatment Plan Information: Simponi 50mg sub-q weekly Est. Tx Plan Start Date: 03/13/2022 Estimated Start Date Info: Patient is transitioning to to home injections Estimated Treatment Duration: Until lack of efficacy Domitila Galeano ([place]) documented in this encounter [facility] 09-22-2023 Miscellaneous Notes Attempted to reach patient. No answer. Message below left on patient's voicemail. Moon Sin MA Prescription sent. Please let her know she is due for labs [facility] Pharmacist Refill Authorization Review Name: Kira Adhikari Date: 09/22/2023 Time: 1:26 PM Refill authorization request(s) received and reviewed under effective consult agreement. Upon review, did confirm that an active patient-provider relationship exists and that the prescriber is a participating physician under the consult agreement. Last office visit in this department: 08/07/2022 Ajit Torre MD Last distance health visit in this department: 09/09/2023 Ajit Torre MD Next appointment in this department: 04/19/2024 Ajit Torre MD The medication(s) fall under the following categories: Category 3: Medication(s) does not qualify for pharmacist renewal due to medication excluded from collaborative practice agreement. Renewal request sent to provider for review. Requested Prescriptions Pending Prescriptions Disp Refills leflunomide (ARAVA) 20 mg tablet 90 tablet 0 Sig: TAKE 1 TABLET BY MOUTH EVERY DAY Number of refills approved in this encounter: 0 Number of refills forwarded to provider for review: 1 Number of refills denied in this encounter: 0 Jennifer Grossman RPh documented in this encounter [facility] 09-22-2023 Miscellaneous Notes Pharmacist Refill Authorization Review Name: Kira Adhikari Date: 09/22/2023 Time: 1:24 PM Refill authorization request(s) received and reviewed under effective consult agreement. Upon review, did confirm that an active patient-provider relationship exists and that the prescriber is a participating physician under the consult agreement. Last office visit in this department: Visit date not found Last distance health visit in this department: 07/25/2023 Melva Spencer APRN.ARELY Next appointment in this department: Visit date not found The medication(s) fall under the following categories: Category 2: Medication(s) qualifies for limited renewal due to Labs needed--last drawn January 2023, office visit note from July lipid panel reviewed . Prescription(s) issued as below. Requested Prescriptions Signed Prescriptions Disp Refills rosuvastatin (CRESTOR) 5 mg tablet 90 tablet 0 Sig: Take 1 tablet by mouth once daily. Authorizing Provider: SEA ALMENDAREZ Ordering User: JENNIFER GROSSMAN Number of refills approved in this encounter: 1 Number of refills forwarded to provider for review: 0 Number of refills denied in this encounter: 0 Jennifer Grossman RPh documented in this encounter [facility] 09-19-2023 Miscellaneous Notes Ambulatory Pharmacy Prior Authorization Note Provider Intervention Required?: Yes- [facility] requires prior authorization to be submitted by the provider. EHP Form Drug: Cambia 50mg Additional Information: na Please fax completed paperwork to [phone] or email to [email or web address]. [facility] cannot process prior authorizations sent via CoverMyMeds. For questions relating to this submission, please contact [facility] at [phone] documented in this encounter [facility] 09-17-2023 Miscellaneous Notes rx sent. Thanks! Provider is Sheldon Patient continues on Simponi Date of patients last office visit 09/09/23 Last labs 05/28/23 last TB 07/2022 Next appointment date: 03/2024 Requested Prescriptions Pending Prescriptions Disp Refills golimumab (SIMPONI) 50 mg/0.5 mL 1.5 mL 0 Sig: Inject 50mg ( 1 pen) subcutaneously every 4 weeks Patient prefers: [facility] Thank you! Madison Chapin RPh documented in this encounter [facility] 09-16-2023 History of Present illness Narrative Episode Visit Count: 22 Therapist That Will Accept/Oversee The Plan Of Care: Beatriz Melissa Start of Care Date: 06/13/23 Onset Date: 01/22/23 [facility] PHYSICAL THERAPY TREATMENT NOTE ASSESSMENT: Kira Adhikari tolerated the session with decreased symptoms, expected muscle soreness, and no issues. She demonstrated improvements in neck and NGUYEN pain today, as well as tolerance for higher level hip strengthening. The patient will continue to benefit from ongoing skilled physical therapy to progress toward set goals. PLAN FOR NEXT VISIT: Continue hip strengthening, neck work as needed for symptom relief SUBJECTIVE: Pt has been doing well since going back to work. Notes some slight discomfort in the hip, but moreso the NGUYEN and neck pain have been worse since returning. Pain: Pain Pain Level: 1 Pain Location: Hip - Right Description: Sharp Frequency: Intermittent Pain Level 2: 6 Pain Location 2: Neck Description 2: Aching, Sore, Shooting Frequency 2: Intermittent OBJECTIVE MEASURES WITH LEVEL OF FUNCTION: NGUYEN reproduced with palpation to B upper traps TREATMENT: Therapeutic Exercise: 1: Leg press 88# 3x10 2: Multihip abduction 2x10/side 70# Skilled Intervention: Patient was educated in proper exercise technique and purpose for exercises. Skilled judgment was used in selection of appropriate interventions. Provided written instruction for home exercise program to facilitate proper performance and compliance. Correct performance of therapeutic exercises was facilitated with verbal, visual, and tactile cuing. Manual Therapy: 1: STM, CFM to B cervical paraspinals and upper traps with push to tolerance 2: Manual cervical traction x10 min Dry Needling: (2) 40 mm needles to B upper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 resistance x 5 min (Discussed HEP and plan for therapeutic exercise moving forward) Skilled Intervention: Patient was educated in proper exercise technique and purpose for exercises. Correct performance of therapeutic exercises was facilitated with verbal cuing. Neuromuscular Re-Education: 1: NBOS x 30 sec 2: Partial tandem x 30 sec 3: NBOS on pad x 30 seconds with eyes closed 4: Partial tandem stance on pad eyes closed x 30 5: Partial tandem ball tosses at rebounder x 20 then partial tandem on pad with ball tosses at rebounder x 20 Skilled Intervention: Skilled judgment used to assess appropriate program for balance and coordination activity. Ensured patient safety with use of SBA Billing Therapeutic Exercise Treatment Minutes: 25 Manual TherapyTreatment Minutes: 15 Skilled Treatment Time Minutes (timed and untimed codes): 40 Total Session Time (minutes): 40 Session Start Time : 834 Session Stop Time : 914 Mikal Bailey PT documented in this encounter [facility] 07-31-2023 History of Present illness Narrative Episode Visit Count: 15 Therapist That Will Accept/Oversee The Plan Of Care: Mikal Bailey PT Start of Care Date: 06/13/23 Onset Date: 01/22/23 Patient Identified by Name and Date of : Yes REHABILITATION AND SPORTS THERAPY PHYSICAL THERAPY TREATMENT NOTE ASSESSMENT: Kira Adhikari tolerated the session with fatigue and expected muscle soreness. She demonstrated good form with all therapeutic exercises. The patient will continue to benefit from ongoing skilled physical therapy to progress toward set goals. PLAN FOR NEXT VISIT: BFR squats , SLR, hip abd SUBJECTIVE: Sore but doing ok. Wants to continue with BFR. Pain: Pain Pain Location: Thigh - Right, Buttocks - Right OBJECTIVE MEASURES WITH LEVEL OF FUNCTION: TREATMENT: Therapeutic Exercise: 1: Supine SLR x 30 x 15 x15 x15 (L cuff at 136 mmHg) 2: Sidelying hip abd x30 x15 x15 x15 (M cuff at 136 mmHg) 3: BFR squats x30 x15 x15 x15 (M cuff at 136 mmHg) 4: Clamshells pink TB 2 x 20 Skilled Intervention: Patient was educated in proper exercise technique and purpose for exercises. Provided written instruction for home exercise program to facilitate proper performance and compliance. Correct performance of therapeutic exercises was facilitated with verbal and visual cuing. Manual Therapy: 1: STM over quad and calf in supine with firm pressure Skilled Intervention: Manual skills to improve joint mobility, ROM, and decrease pain. Utilized anatomy knowledge of the therapist, and assessment of patient's response to intervention. Billing Therapeutic Exercise Treatment Minutes: 33 Manual TherapyTreatment Minutes: 10 Total Treatment Time Minutes (timed/untimed): 43 Session Start Time : 829 Session Stop Time : 912 Mikal Bailey PT documented in this encounter [facility] 07-30-2023 Instructions Dian Sierra PA-C - 07/30/2023 2:38 PM EDT Advance activity per PT guidance. Pool per tolerance - NO breast stroke, scissor kick, treading water, flip turns and pushing off the wall Begin/ advance low impact cardio: Upright stationary bike - stay seated and avoid clipping in/ strapping feet to pedals on bike Elliptical avoid inclines/ declines Gentle freestyle or backstroke No impact and explosive/ ballistic activities (running, jumping, forced extremes of motion) No deep (> 90 degrees) squatting Lifting restriction max 30 pounds rarely Upper body lifting - as long feet are not in contact with ground. Do no lift and carry free weights HIP ARTHROSCOPY REHAB GUIDELINES PHASE II Phase II: Intermediate Exercises Close Chain, Single Plain Balance Progression 3 sets, hold 30 seconds, Once / day 1. Double Leg Stance - after fully weight bearing, stand on uneven surface for balance. 2. Single Leg Stance - after 1 week of double leg stance on uneven surface, do single leg stance on regular surface Progress to single leg stance on uneven surface Carol-disc: Start with poles for support Progress by touching the opposite foot to ground @ 9, 10:30, 12, 1:30 & 3 o clock positions Add Dynamic Balance activities as tolerated Stationary bike with resistance 30-40 minutes Increase resistance slowly while maintaining 60-80 RPM. Reduce time on bike when initiating resistance. CYCLISTS: Due to the correct pedaling motion and the great amount of hip flexor use: 1st 3 weeks: use flats on guide dog trainer 3rd to 4th weeks: clip-less with no resistance Double 1/3 knee bends 3 sets, 20 repetitions, Once / day Start standing with feet shoulder width apart, bend knees to 60 degrees. Do not allow knees to go past toes. Progress by using a sport cord for resistance Advanced Core Progression 3 sets, 20 repetitions, Once / day 1. Planks (not before week 4): Lie on either side with your knees bent resting on your elbow. Lift your hips up to a straight line, then slowly lower. Progress by performing with legs straight Progress to performing on back and stomach 2. Pilates: Perform the following exercises on the reformer with an instructor: Foot work series, Skater series, Hip Extensions documented in this encounter [facility] 07-30-2023 History of Present illness Narrative POST OP [facility] VIRTUAL VISIT DOCUMENTATION NOTE I have communicated my name and active licensure. The patient's identity and physical location were verified at the time of this visit. Either the patient or their legal care support representative has been informed of the risks and benefits of -- and alternatives to -- treatment through a remote evaluation and consents to proceed with the evaluation remotely. Distance Health Platform: [employer] Virtual Visit People present : Dian Sierra PA-C and Patient Time Spent for video encounter, record review and documentation: 17 minutes CHIEF COMPLAINT (CC): Post op right hip HISTORY OF PRESENT ILLNESS (HPI): 6 weeks s/p right hip arthroscopy - No systemic complaints. Skelaxin very effective Pain: right hip feels great since surgery - hip flexor, quad and hamstring very tight PT going well - advanced to closed chain exercises EXAMINATION: There is no height or weight on file to calculate BMI. This examination was performed via video enabled technology. Patient does not appear to be in any acute distress Patient is alert and oriented with normal affect Right Hip Examination Inspection: Incisions well healed Range of motion (patient performed these range of motions with my instruction via the video enabled technology): Hip flexion 115 Palpation (patient localized these landmarks with my instruction via the video enabled technology): Tenderness right SI joint, greater trochanter, anterior groin Special testing (patient performed these maneuvers on themselves with my instruction via the video enabled technology): FADIR: Negative DEYVI: LOM right compared to left Neurologic: Intact sensation testing of the lower extremities with no dysesthesia Impression: 6 weeks s/p right hip arthroscopy Plan: Discussed Advance PT and activities per protocol. Precautions reinforced. No impact activities Follow-up: [address] Princess Sierra, MS, PAQuinnC documented in this encounter [facility] 07-29-2023 Miscellaneous Notes Rx for arava 20/day (from 10) sent documented in this encounter [facility] 07-25-2023 History of Present illness Narrative Images from the original note were not included. [facility] [place] [facility] Department of Cardiovascular Medicine SECTION OF PREVENTIVE CARDIOLOGY VIRTUAL VISIT This is a virtual video visit. It required patient-provider interaction for the medical decision making as documented below. Kira Adhikari has consented to this video encounter. I have communicated my name and active licensure. The patient's identity and physical location were verified at the time of this visit. Either the patient or their legal care support representative has been informed of the risks and benefits of -- and alternatives to -- treatment through a remote evaluation and consents to proceed with the evaluation remotely. 07/25/2023 Kira Adhikari CURRENT MEDS: Current Outpatient Medications Medication Sig ubrogepant (UBRELVY) 100 mg tablet Take 1 tablet by mouth at migraine onset. May repeat once in 2 hours as needed. tiZANidine HCl (ZANAFLEX) 2 mg capsule Take 1 capsule by mouth three times daily as needed. tirzepatide (MOUNJARO) 10 mg/0.5 mL pen injector Inject 10 mg subcutaneously one time a week. leflunomide (ARAVA) 10 mg tablet Take 1 tablet by mouth once daily. acetaminophen (ACETAMINOPHEN EXTRA STRENGTH) 500 mg tablet Take 1-2 tablets by mouth every 8 hours as needed for pain. docusate sodium (COLACE) 100 mg capsule Take 1 capsule by mouth twice daily. oxyCODONE IR (ROXICODONE) 5 mg immediate release tablet Take 1 tablet every 6 to 8 hours as needed for severe pain golimumab (SIMPONI) 50 mg/0.5 mL Inject 50mg ( 1 pen) subcutaneously every 4 weeks valACYclovir (VALTREX) 1 gram Take 1 tablet by mouth once daily. methocarbamol (ROBAXIN) 750 mg tablet Take 1 tablet by mouth four times daily. metoprolol succinate ER (TOPROL XL) 25 mg 24 hr tablet Take 1 tablet by mouth daily at bedtime. fremanezumab-vfrm (AJOVY AUTOINJECTOR) 225 mg/1.5 mL auto-injector Inject 4.5 mL under the skin every 3 months. Diclofenac Potassium (CAMBIA) 50 mg pwpk Take 1 Packet by mouth as needed for migraine headache. Can repeat dose in 2 hours, no more than 2 doses per day, or 2 days per week buPROPion SR (WELLBUTRIN SR) 150 mg 12 hr tablet Take 1 tablet by mouth twice daily. rosuvastatin (CRESTOR) 5 mg tablet Take 1 tablet by mouth once daily. Magnesium Citrate 150mg (Pure Encapsulations) Take 4 capsules daily. riboflavin, vitamin B2, (VITAMIN B-2) 100 mg tab Take 4 tablets by mouth once daily. coenzyme Q10 (COQ-10) 100 mg cap capsule Take 1 capsule by mouth twice daily. vitamin D3-folic acid 5,000 unit- 1 mg tab Take 5,000 Units by mouth once daily. multivitamin tablet Take 1 tablet by mouth once daily. No current facility-administered medications for this visit. ALLERGIES: ALLERGIES Allergen Reactions Dilaudid [Hydromorp* Itching Fentanyl Itching Sulfa (Sulfonamide * Rash CHIEF COMPLAINT: Kira Adhikari is a 37 year old White female seen today. Patient presents with: Hyperlipidemia HISTORY OF PRESENT CARDIOVASCULAR ILLNESS: 37 year old female with hyperlipidemia, inflammatory arthritis presents for ongoing management of cardiovascular risk factors. she reports having some lightheadedness with position changes, states she could be better about drinking water during the day. Otherwise she reports feeling well Chest pain: No Claudication: No SOB: No Orthopnea: No PND: No LE: No Lightheadedness/dizziness: as noted above Palpitations:No Bleeding/bruising: No CARDIAC RISK FACTORS: History question Answer Diagnosis Date Comment Dyslipidemia : Dyslipidemia 2011 Exercise: More than 5 times per week Family History of CAD: Negative 1-3 miles 2 days per week or swimming. Pilates Exercise is limited by inflammatory flares STATIN INTOLERANCE: Adverse Effect History of Statin Intolerance:: No Current Statin Freq: None FAMILY AND SOCIAL HISTORY Lifestyle Tobacco Use: Never Alcohol Use: Not Currently (none since 2019) PHYSICAL EXAMINATION: Virtual Visit, No vital signs or physical exam performed for this visit Clinical Test Results Ejection Fraction: Ejection Fraction: Normal (>50%) Lab Results: Lipoprotein (a) Date Value Ref Range Status 07/03/2022 46 (H) <30 mg/dL Final Cholesterol, Total Date Value Ref Range Status 01/29/2023 147 <200 mg/dL Final Comment: <200 mg/dL, Desirable 200-239 mg/dL, Borderline high >239 mg/dL, High Triglyceride Date Value Ref Range Status 01/29/2023 77 <150 mg/dL Final Comment: <150 mg/dL, Normal 150-199 mg/dL, Borderline high 200-499 mg/dL, High >499 mg/dL, Very high HDL Cholesterol Date Value Ref Range Status 01/29/2023 51 >39 mg/dL Final Comment: 40-59 mg/dL, Acceptable >59 mg/dL, High: Negative risk factor for coronary heart disease <40 mg/dL, Low: Positive risk factor for coronary heart disease LDL Cholesterol Date Value Ref Range Status 01/29/2023 81 <100 mg/dL Final Comment: <100 mg/dL, Optimal 100-129 mg/dL, Near optimal/above optimal 130-159 mg/dL, Borderline high 160-189 mg/dL, High >189 mg/dL, Very high Secondary prevention optimal LDL Cholesterol levels are recommended to be < 70 mg/dL Hemoglobin A1C Date Value Ref Range Status 10/04/2022 4.9 4.3 - 5.6 % Final Comment: [place] Diabetes Association guidelines indicate that patients with HgbA1c in the range 5.7-6.4% are at increased risk for development of diabetes, and intervention by lifestyle modification may be beneficial. HgbA1c greater or equal to 6.5% is considered diagnostic of diabetes. ALT Date Value Ref Range Status 05/28/2023 15 7 - 38 U/L Final Glucose Date Value Ref Range Status 05/28/2023 95 74 - 99 mg/dL Final Comment: The [place] Diabetes Association (ADA) provides guidance for cutoff values for fasting glucose and random glucose. The ADA defines fasting as no caloric intake for at least 8 hours. Fasting plasma glucose results between 100 to 125 mg/dL indicate increased risk for diabetes (prediabetes). Fasting plasma glucose results greater than or equal to 126 mg/dL meet the criteria for diagnosis of diabetes. In the absence of unequivocal hyperglycemia, results should be confirmed by repeat testing. In a patient with classic symptoms of hyperglycemia or hyperglycemic crisis, random plasma glucose results greater than or equal to 200 mg/dL meet the criteria for diagnosis of diabetes. Reference: Standards of Medical Care in Diabetes 2016, [place] Diabetes Association. Diabetes Care. 2016.39(Suppl 1). TSH Date Value Ref Range Status 01/29/2023 2.250 0.270 - 4.200 mIU/L Final Comment: If the patient is , TSH reference range varies by gestational period: First Trimester (weeks 9-12): 0.180-2.990 mIU/L Second Trimester: 0.110-3.980 mIU/L Third Trimester: 0.480-4.710 mIU/L Yeyo Cheung et al. A Practical Approach for the Verifications and Determination of Site- and Trimester-Specific Reference Intervals for Thyroid Function tests in . Thyroid, 2019:29:3:412-420. Hill Brunner, et al. 2017 Guidelines of the [place] Thyroid Association for the Diagnosis and Management of Thyroid Disease during and the . Thyroid, 2017:27:3:315-389. UltraSens C-Reactive Protein Date Value Ref Range Status 12/27/2021 0.9 <3.1 mg/L Final Comment: (NOTE) hsCRP < 1.0 mg/L, relative risk is low hsCRP 1.0-3.0 mg/L, relative risk is average hsCRP > 3.0 mg/L, relative risk is high Reference: Donell TA, Arnulfo GA, Hill RW, et al. Markers of Inflammation and Cardiovascular Disease. Application to Clinical and Public Health Practice. A Statement for Healthcare Professionals From the Centers for Disease Control and Prevention and the [place] Heart Association. Circulation 2003;107:499-511. Creatinine Date Value Ref Range Status 05/28/2023 0.76 0.58 - 0.96 mg/dL Final Potassium Date Value Ref Range Status 05/28/2023 4.0 3.7 - 5.1 mmol/L Final Patient Entered Questionnaire Scores PHQ-9 07/21/2023 01/09/2023 10/01/2022 Score 2 0 6 LETICIA - 7 SCORES 07/05/2022 LETICIA-7 Score 0 PROMIS Global Health - (T-Scores - the mean of general population = 50. Five points is a clinically meaningful difference.) 05/30/2023 05/30/2023 01/29/2023 Physical T-Score 39.8 39.8 42.3 Mental T-Score 48.3 48.3 50.8 IMPRESSION: In summary, Ms. Adhikari is a 37 year old female who was referred to the [facility] because of Hypercholesterolemia and Elevated L(p)a PLAN: The results of this assessment were discussed with the patient. We have mutually agreed upon the following plans and goals: Inflammatory Arthritis: - follows with Rheumatology Hyperlipidemia: LDL goal < 100, ideally <70 due to inflammatory arthritis & mildly elevated Lp(a) discussed starting statin she would like to start on lowest dosage. Pt had elevated LFT's on methotrexate that normalized when she discontinued it. LDL has been as high as 316 historically per patient Cholesterol, Total (mg/dL) Date Value 01/29/2023 147 10/04/2022 274 01/23/2021 252 02/03/2020 247 HDL Cholesterol (mg/dL) Date Value 01/29/2023 51 10/04/2022 52 01/23/2021 61 02/03/2020 56 LDL Cholesterol (mg/dL) Date Value 01/29/2023 81 10/04/2022 195 01/23/2021 179 02/03/2020 178 Triglyceride (mg/dL) Date Value 01/29/2023 77 10/04/2022 133 01/23/2021 61 02/03/2020 67 PLAN: -check lipid panel - continue rosuvastatin 5 mg every day. Discussed stains contraindicated in , had vasectomy. Blood Pressure: PLAN: -Blood pressure well controlled on no BP medications Exercise: PLAN: -AHA recommends 150 minutes of moderately intense activity per week Nutrition /Weight: on Sadiq Bradley, she has intentional weight loss of 52lbs exercise has been limited by hip pain, now she has been more active - walking, strength training, continues PT s/p hip replacement limits intake of gluten, sugar, alcohol, not much eating out or fast food lean beef limited, mostly chicken, turkey, pork frequent fruit/vegetables PLAN: -Follow a Mediterranean diet: Choose plenty of whole or plant based foods-fruit, vegetables, whole grains, and nuts. Choose monounsaturated fat from olive oil, olives, nuts, and avocado. [place] 3 fats are another heart healthy fat found in tuna, salmon, flaxseed, and walnuts. Limit foods high in sodium, saturated fat, and cholesterol. HEALTH MAINTENANCE: Please follow-up with your Primary Care Physician and review your health maintenance to ensure it is up to date. MEDICATION CHANGES: start Rosuvastatin 5 mg every day Physicians and Nurse Practitioners work closely together in Preventive Cardiology. If at any time you would like to see a Physician for a visit, please let us know. Last visit with [facility] physician: Hayes 08/21 AMBULATORY PATIENT EDUCATION Topic: Education on risk factors and medications. Instruction Provided To: Patient Cognitive Ability: Alert/Oriented Barriers: None Motivation to Learn: Interested Methods of Instruction: Verbal instruction and/or handouts. Patient Leans Best By: Multiple Methods Patient Verbalized: Understanding I personally spent 22 minutes in total time involved in the management and care of this patient. Melva Spencer APRN.MILLED RICE BROKER documented in this encounter [facility] 07-24-2023 History of Present illness Narrative Episode Visit Count: 13 Therapist That Will Accept/Oversee The Plan Of Care: Mikal Bailey PT Start of Care Date: 06/13/23 Onset Date: 01/22/23 Patient Identified by Name and Date of : Yes REHABILITATION AND SPORTS THERAPY PHYSICAL THERAPY TREATMENT NOTE ASSESSMENT: Kira Adhikari tolerated the session with expected muscle soreness and no issues. She demonstrated some increased muscle pain and soreness with BFR exercises. The patient will continue to benefit from ongoing skilled physical therapy to progress toward set goals. PLAN FOR NEXT VISIT: BFR SUBJECTIVE: Sore after the last session. Not too bad. Muscle soreness. No pinching. Pain: Not rated OBJECTIVE MEASURES WITH LEVEL OF FUNCTION: TREATMENT: Therapeutic Exercise: 1: Supine SLR x 30 x 15 x15 x15 (M cuff at 136 mmHg BFR) 2: Standing BFR squats x 30, x15, x15, x15 3: Clamshells pink TB 2 x 15 Skilled Intervention: Patient was educated in proper exercise technique and purpose for exercises. Correct performance of therapeutic exercises was facilitated with verbal cuing. Manual Therapy: 1: Active release for illiacus and iliopsoas 2: STM over iliopsoas tendon and iliacus muscle belly 3: Bowstringing HS in sidelying Skilled Intervention: Manual skills to improve joint mobility, ROM, and decrease pain. Utilized anatomy knowledge of the therapist, and assessment of patient's response to intervention. Billing Therapeutic Exercise Treatment Minutes: 20 Manual TherapyTreatment Minutes: 18 Total Treatment Time Minutes (timed/untimed): 38 Session Start Time : 831 Session Stop Time : 909 Mikal Bailey PT documented in this encounter [facility] 07-23-2023 Miscellaneous Notes Botox referral sent to pharmacy. Harriet Spaulding, RN documented in this encounter [facility] 07-22-2023 Instructions Sunil Owen DO - 07/22/2023 10:04 AM EDT Acute Headache Treatment: (What to take as-needed for headache) 1) Ubrelvy 100 mg at earliest sign of migraine. May repeat once in 2 hours. 2) Cambia at migraine onset and can repeat every 8 hours. Ok to use with Ubrelvy. Headache Preventive Treatment (What to take on a daily basis to try to lessen frequency and/or intensity of headache): *Please keep in mind that it takes 4-6 weeks for the medication to start working well and 2-3 months at the appropriate dose before deciding if it will be useful or not. If it is not helping at all by this time, then we will discuss other medications to try. Supplements may take 3-6 months until you see full effect. 1) Ajovy quarterly injections. We'll send for Botox to see if we can use together for synergistic effect. Vyepti, Emgality, Qulipta are future considerations. 2) Consider adding supplements: Magnesium 400-800 mg daily. Magnesium glycinate is a good choice for those with a sensitive stomach who have gastrointestinal side effects such as diarrhea with other forms of magnesium. It is anecdotally also helpful with anxiety and sleep. Magnesium threonate also has low risk of gastrointestinal side effects and anecdotally helpful with cognitive function and brain fog symptoms. Magnesium malate has low gastrointestinal side effects and is reportedly more energizing and anecdotally often helpful in fibromyalgia and chronic fatigue syndrome. Magnesium citrate is one of the most studied, popular, and well-absorbed forms of magnesium. It can also be mixed easily with liquids if you can t take pills. However, it comes with a higher risk of diarrhea and gastrointestinal side effects, although this could be helpful for those with constipation. Magnesium oxide is also well studied, cheap, and often used for heartburn and indigestion. However, it is not well absorbed and can have some laxative side effects as well, so can also be helpful for constipation. Other supplements to consider would be Coenzyme Q10 200 mg (or 150 mg) twice daily (or Qunol brand 100 mg daily) +/- Riboflavin (Vitamin B2) 400 mg daily (or 200 mg twice daily). You can sometimes buy supplements cheaper (especially Coenzyme Q10) at [employer] or at [employer]. 3) Continue Metoprolol ER 25 mg daily for now. General Headache Instructions: 1) Maintain a headache diary; learn to identify and avoid triggers. 2) Limit use of acute treatments (szes-cbi-dglylvw medications, triptans, etc.) to no more than 2 days per week or 10 days per month to prevent medication overuse headache (rebound headache). 3) Follow a regular schedule (including weekends and holidays) for the next 6 weeks: A) Don't skip meals. B) 8 hours of sleep nightly. C) Avoid the following common headache triggers: -Caffeine (coffee, chocolate, tea, cola/pop/soda (7-up, Sprite, Tahmina Mist, Pricila Viki, Mug/A+W Root Beer, Minute Maid Bullock, Slice are okay)) -Foods containing nitrates (deli meat, ham, márquez, sausage, hot dogs) -Tyramine (aged cheese; can only have [place] cheese, cottage cheese, Velveeta and fresh mozarella (most pizza uses aged mozarella)) -MSG (Lux[place]/ foods, Doritos, all flavored chips and Ramen noodles) -Nutrasweet and artificial sweeteners D) Minimize stress. E) Exercise 30 minutes per day. Being overweight is associated with a 5 times increased risk of chronic migraine. F) Keep well hydrated and drink 6-8 glasses of water per day. 4) Initiate non-pharmacologic measures at the earliest onset of your headache. A) Rest and quiet in a cool, dark environment. B) Relax and reduce stress. C) Cold compress to head (place a dry washcloth to forehead, cover with a blue freezer packet and use a headband to press the freezer packet across the forehead and temples). 5) Don't wait!! Take the maximum allowable dosage of prescribed medication at the very earliest sign of headache. 6) Compliance: Take prescribed medication regularly as directed and at the first sign of a headache. 7) Communicate: Call your physician when problems arise, especially if your headaches change, increase in frequency/severity, or become associated with neurological symptoms (weakness, numbness, slurred speech, etc.). 8) Headache/pain management therapies: Consider various complementary methods, including medication, behavioral therapy, psychological counselling, biofeedback, massage therapy, acupuncture, and other modalities. Such measures may reduce the need for medications. Counseling for pain management, where patients learn to function and ignore/minimize their pain, seems to work very well. 9) Recommend changing family's attention and focus away from patient's headaches. Instead, emphasize daily activities. If first question of day is 'How are your headaches/Do you have a headache today?', then patient will constantly think about headaches, thus making them worse. Goal is to re-direct attention away from headaches, toward daily activities and other distractions. Avoiding Medication Overuse Headache (Rebound Headache): Based on current research, the types of medications and their frequency of use which converts a previously episodic headache (particularly migraine) into a chronic daily headache (any headache occurring 15 or more days per month for at least 4 hours per day) are as follows: ---> Over the counter medications, NSAIDS and combination analgesics: -More than 2 days per week, or more than 10 days per month. -These include medications such as Acetaminophen (Tylenol), Naproxen (Aleve), Ibuprofen (Advil, Motrin), Acetaminophen/Caffeine (Excedrin), Acetaminophen/Dichloralphenazone/I sometheptene (Midrin), Aspirin (ok to continue if taking for medical reasons), cold remedies and sleep-promoting agents, among others. ---> Triptans: -More than 2 days per week, or more than 10 days per month. -These include Sumatriptan (Imitrex), Sumatriptan/Naproxen (Treximet), Rizatriptan (Maxalt), Almotriptan (Axert), Zolmitriptan (Zomig), Eletriptan (Relpax), Naratriptan (Amerge), Frovatriptan (Frova). ---> Opiates/Opioids (Narcotics): -8 days or more per month. Some research suggests that even infrequent use of these medications makes migraine specific medications such as triptans and NSAIDs less effective. -These include any narcotics such as Acetaminophen/Hydrocodone (Vicodin), Acetaminophen/Oxycodone (Percocet), Acetaminophen/Propoxyhene (Darvocet), Acetaminophen/Codeine (Tylenol #3, #4), Tramadol (Ultram), Acetaminophen/Tramadol (Ultracet), Oxycodone (OxyContin), Hydromorphone (Dilaudid), Fentanyl, Butorphanol (Stadol), Morphine or any form of a Morphine derivative. ---> Butalbital containing medications: -5 or more days per month. As you can see, these are the worst offenders. -These include Acetaminophen/Butalbital/Caffeine (Fioricet, Esgic) Acetaminophen/Butalbital/Caffeine/ Codeine (Fioricet with Codeine), Aspirin/Butalbital/Caffeine (Fiorinal), Aspirin/Butalbital/Caffeine/Codein e (Fiorinal with Codeine). Vitamins and herbs that show potential for migraine prevention: Magnesium: Magnesium (250 mg twice a day or 500 mg at bed) has a relaxant effect on smooth muscles such as blood vessels. We often give intravenous magnesium to patients who come into the emergency department for migraine because it helps to break the migraine. Three trials found 40-90% average headache reduction when used as a preventative. Magnesium also demonstrated the benefit in menstrually related migraine. Magnesium is part of the messenger system in the serotonin cascade and it is a good muscle relaxant. It is also useful for constipation which can be a side effect of other medications used to treat migraine. Good sources include nuts, whole grains, and tomatoes. Coenzyme Q10: This is present in almost all cells in the body and is critical component for the conversion of energy. Recent studies have shown that a nutritional supplement of CoQ10 can reduce the frequency of migraine attacks by improving the energy production of cells as with riboflavin. Doses of 200 mg (or 150 mg) twice a day have been shown to be effective. Riboflavin (Vitamin B2): 200 mg twice a day (or 400 mg daily). This vitamin assists nerve cells in the production of ATP, a principal energy storing molecule. It is necessary for many chemical reactions in the body. There have been at least 3 clinical trials of riboflavin using 400 mg per day all of which suggested that migraine frequency can be decreased. All 3 trials showed significant improvement in over half of migraine sufferers. The supplement is found in bread, cereal, milk, meat, and poultry. Most Americans get more riboflavin than the recommended daily allowance, however riboflavin deficiency is not necessary for the supplements to help prevent headache. Feverfew: Feverfew is a common garden herb [place] and popular in [place] as a treatment for disorders typically controlled by aspirin. The mechanism of action is unknown but is believed to be related to a chemical called parthenolide which helps the body use serotonin more effectively. Serotonin helps prevent migraine and assists with resolution when it occurs. Parthenolide also inhibits the release of histamine which is linked to pain and inflammation. Consistency of active ingredients in different products can be a problem. Some formulations don't have the active ingredient (parthenolide) that prevents migraine. A parthenolide content of 0.2% is generally recommended. Typical dosage is one capsule 3 times a day. Butterbur: This is an extract derived from the petisides hybridus root, which has been used for medicinal purposes since ancient times. A recent study found that 75 mg daily given over 4 months reduced headache frequency by 50% or more in over two thirds of the 245 patient studied. The 50 mg dose showed no significant effect. Side effects were infrequent, and the most common and unusual includes burping/belching. Raw butterbur root contains toxic chemicals that must be filtered out during the manufacturing process. To be sure you are choosing a safe product. Look for a formulation that does not contain pyrrolizidine alkaloids which are toxic to the liver. Melatonin: Increasing evidence shows correlation between melatonin secretion and headache conditions. Melatonin supplementation has shown decreased headache intensity and duration. It is widely used as a sleep aid. Sleep is nature's way of dealing with migraine. A dose of 3 mg is recommended to start for headaches including cluster headache. Higher doses up to 15 mg has been reviewed for use in Cluster headache and have been used. The rationale behind using melatonin for cluster is that many theories regarding the cause of Cluster headache center around the disruption of the normal circadian rhythm in the brain. This helps restore the normal circadian rhythm. It should be taken at least 2 hours before bedtime. Pricila: Pricila has a small amount of anti-histamine and anti-inflammatory action which may help headache. It is primarily used for nausea and may aid in the absorption of other medications. HEADACHE EXPECTATIONS: There are many types of headaches, and only a rare few in which complete relief can be expected. In general, there is no cure for headache, especially migraine based headaches. There is nothing available that completely prevents headaches from occurring, breaking through, or having periodic flare-ups and fluctuations. Regardless of what you are using on a daily basis for prevention, episodic headaches should still be expected, and periods where frequency may escalate and fluctuate are unavoidable. There is no quick fix for most headaches. Furthermore, the longer you have had high frequency headaches (such as chronic daily headache), the longer it will likely take to expect any improvement. In fact, some people will never improve, regardless of how many medications or other treatments we try. Our treatment strategy is to evaluate for possible causes of your headache, although testing is usually always normal, even in cases of daily continuous headaches for years. Most types of headache such as migraine are electrical brain disorders (similar to how epilepsy is an electrical brain disorders). Therefore, there is no testing that will reveal this dysfunctional electrical circuitry such on MRI, or other testing. We try to find a medication that may help lessen the frequency and/or severity of your headaches. The goal is not to completely stop them from happening, although if that happens, great! Different people respond to different medications, and some people just don't respond to anything, so it's usually a matter of trying different options. We can not predict if or when exactly you will respond to a treatment that we provide. Preventive headache medications take 4-6 weeks to start working, and 2-3 months to see full effect, assuming you reach an effective dose. Therefore, calling or messaging frequently because you have a headache flare prior to the 3 month latanya is unlikely to change anything, and unfortunately there is nothing available that will expedite this, so please try to avoid this. Our recommendation will generally be to give it adequate time first. If you are unable to wait it out for medications to work, we can also try IV infusions for some temporary relief. Or, we offer our 3 week outpatient chronic daily headache program (IMATCH) to help you better learn how to function and deal with chronic headache issues. In general, the best that preventive medications or other treatments (including Botox) are able to offer in migraine management (variable in other headache types) is a 50% improvement in frequency and/or severity of headache. That is our goal, and any additional benefit is considered a bonus. Some people do significantly better than this, others do not get close to this. Therefore, if your headaches are not improving by at least 3 months on your preventive strategy, contact us and we can discuss further adjustments. Keep in mind that complete headache cure is not a realistic expectation. MYCHART, PHONE CALLS, TESTING RESULTS: Please understand that we rely heavily and work closely with our nursing team to assist us in managing your telephone calls, test results, and refills. Due to the volume of daily phone calls, messages, and schedules, it is impossible for us to personally call patients back through the day. We do receive your messages, which are very important to us, and respond most often through our nursing team to help relay our message and response back to you. The main way of communication is by MyChart rather than phone lines, so if you have not signed up, please do so. MyChart is also the way that you can review your labs and testing. We are not able to contact everyone to tell them results are normal. If you do not hear back from us regarding testing you have had, it should be considered normal or within normal range. If you have any questions about the results, you are free to message us. MyChart is meant for simple questions regarding medications, possible side effects, or other simple straight forward questions in limited sentences, rather than multiple paragraphs of discussion. MyChart is not meant for, safe, or efficient for these complex questions, extensive questions, extensive medication adjustments, complex new symptoms or concerns. These issues beyond simple questions require a follow up visit with myself, one of our physician assistants, nurse practitioners, or a Virtual Visit via computer or smart phone, as detailed further down. REFILLS: Please pay attention to when your refills will need to be renewed. Due to the volume of phone calls daily, this could potentially take a few days, although we certainly try to honor your refill requests as soon as we can. You should call at least 1 week in advance of needing a refill to ensure you do not run out of medication. Keep in mind that refill requests on Fridays may not be filled until the following week. BOTOX: If you are receiving Botox treatments, please check with your insurance company before and following each treatment appointment to ensure that you still have pre-approved coverage for your next Botox appointment in 3 months. If your coverage has run out, and a new prior authorization is required to continue Botox treatment, please call our office and let us know so that we can file the paperwork. Telemedicine is the newest virtual visit that we are now offering to allow you to have a [id number] conversation with your doctor for 15 minutes (although this can extend further as needed), without the need for driving to our clinic, paying for parking, paying copays, paying for travel, stopping over for meals, etc. You will need a computer or smartphone (with a built-in camera), should you wish to avail of this convenient alternative. If you are interested in the telemedicine visit, please let me know and we will facilitate that visit. I have included more detailed information below on how the virtual visit works. We look forward to serving your needs and answering your questions! REASON FOR A VIRTUAL ONLINE APPOINTMENT In order to provide you with the best care possible, we have recently begun using a technology to connect patients, providers, and family members through a Skype -like connection for live audio and video communication. We are now using this as a way for patients to have a visit with a provider without the added costs of having to travel to our facility. This service, [facility], is easily accessible through your mobile device or a desktop/laptop with a browser and internet connection. HOW DO I GET STARTED? ON A DESKTOP OR LAPTOP COMPUTER WITH A WEBCAM CONNECTED: 1. Go to the URL: [email or web address] 2. Click on Sign Up and Create a patient account for yourself. 3. Please also follow the links to Test My Computer . 4. Follow the steps suggested, testing your Internet Speed, Webcam, Microphone, Speaker, and your video software. 5. Please make sure your video software is up-to-date. This is a safe, [facility] approved download, and will not harm your computer. ON AN IPHONE, IPAD, OR ANDROID DEVICE: 1. Open up the [employer] or [employer] and search [facility]. 2. Download and Install the Application. 3. Tap on Sign Up and create a patient account for yourself. 4. Please use an e-mail address that you frequently check, as you will receive an e-mail appointment from [facility]. Find our user guide, here: [email or web address] Important: Don t forget your password you choose during setup. For your personal records: Your E-mail Address Here: Your Password Here: YOUR ONLINE VIRTUAL VISIT 1. Once the visit is scheduled, you should plan to begin your visit at least 15 minutes prior to the start of your visit. 2. You can begin by opening the email you received to schedule this visit, click on Start Visit, agree to the Terms of Use, and wait for your visit to start! 3. Agree to the Terms of Use, and wait for your visit to start! 4. When you join the virtual visit you will be connected to the provider. Please call [phone] prior to your visit if you have any questions regarding technology! documented in this encounter [facility] 07-22-2023 Miscellaneous Notes PA form faxed several times with no response. Called the pharmacy and they report this was filled and covered 05/20/23. Next fill due 07/29/23. Any PA questions can call [phone] option 4. Faxed back to number on the form. Paperwork / form signed David Kilgore DO [facility] PA form completed and to pcp to review and sign. Please send PA for valtrex, see below David Kilgore DO Patient contacted regarding message below. Patient states acyclovir was not effective for her in the past. Reports this should be documented. States Valtrex helps her with her outbreaks best. Patient asking if Dr. Kilgore's office can send an insurance appeal for coverage of Valtrex since acyclovir was not effective for her? Please call patient with update. Thank you. Please inform patient as below, does she want to pay out of pocket for valtrex or switch to acyclovir? David Kilgore DO Insurance preferred product is acyclovir. Please submit new rx if appropriate Thanks Serafin Atkins RPh [phone] documented in this encounter [facility] 07-22-2023 History of Present illness Narrative Previous records (physician notes, laboratory reports, and radiology reports) and imaging studies were reviewed and summarized as below. My recommendations will be communicated back to the patient's primary care physician and/or consulting physician(s) by way of shared medical record or letter via US mail. Thank you for allowing me to contribute to the care of your patient. VIRTUAL NEW PATIENT ASSESSMENT: 37 year old female with history significant for migraine with aura, prolonged migraine aura, chronic migraine, PCOS, TMD, cervical disk herniation, neck pain, autoimmune arthritis, with variable cycles of high frequency episodic migraine and chronic migraine with some contributions from occipital neuralgia and cervicalgia. PLAN: (Please see typed patient instructions for detailed instructions) ---> Acute Treatment: -Ubrelvy trial. -Cambia works well. Generic diclofenac was not effective. We will get a precert for an Oral Calcitonin Gene-Related Peptide Receptor Antagonist (GEPANT) Ubrogepant for the rescue treatment of episodic migraine. This patient meets AHS criteria for treatment of migraine with an oral small molecule CGRP antagonist GEPANT. The FDA has approved GEPANTS for the treatment of migraine. Specifically, the patient has 9 headaches per month, lasting 4 or more hours/day associated with photophobia, phonophobia, nausea for three or more months. Medication overuse headache has been ruled out. Patient will not use with another GEPANT. The patient has a contraindication prolonged migraine aura and tried and failed the following : Anti-Migraine Lasmiditan (Reyvow) Rizatriptan (Maxalt) ineffective Sumatriptan (Imitrex, Sumavel) ineffective Analgesic Diclofenac (Voltaren, Cataflam, Cambia) Cambia works well. Generic diclofenac is not effective Indomethacin (Indocin) no benefit Ketorolac (Toradol) no benefit Meperidine (Demerol) Morphine (Mellissa, Ms Contin) Gepants Nurtec (no help) ---> Preventive Treatment: -Ajovy quarterly. Discussed Vyepti, Emgality, Qulipta as future considerations. -Resend for Botox in hopes of using with Ajovy for synergistic benefit, which is supported by published evidence based medicine. Prior Botox was never done by anyone here in the headache center, so likely suboptimal pattern. -Continue Metoprolol ER 25 mg daily for now. ---> We discussed avoiding estrogen and triptans given prolonged migraine aura that she sometimes gets. ---> Headache education was done. Discussed lifestyle modification including increased oral hydration, decreased caffeine, exercise and stress management. Discussed treatment options including preventive and acute medications, natural supplements. Discussed medication overuse headache and to limit use of acute treatments to no more than 2 days/week or 10 days/month. Discussed medication side effects, adverse reactions and drug interactions. Written educational materials and patient instructions outlining all of the above were given. ---> Follow-up: for BOTOX. We will get a precert for Onabotulinum Toxin A using the PREEMPT protocol. This patient meets FDA criteria for Chronic Migraine without aura, without mention of intractable migraine without mention of status migrainosus. The migraine lasts for greater than 4 hours and has been chronic for more than three months. Onabotulinum Toxin A is FDA approved for chronic migraine. Her headaches are associated with photophobia, phonophobia, nausea, vomiting for three or more months. Patient will not use in conjunction with CGRP preventive medications. Medication overuse, alternate diagnosis, confounding psychiatric or social stresses have been ruled out as the cause of headaches. Severity: moderate to severe Quality: throbbing Migraine days a month: 8 Headache days a month: 8 Total Headache days a month: 16 Headache free days a month: 14 The following preventative medications have been tried for at least three months without benefit or discontinued due to side effects: Anti-Convulsant Divalproex sodium (Depakote) Pregabalin (Lyrica) Topiramate (Topamax, Trokendi XL, Qudexy) no benefit Anti-Depressant and Antipsychotic Bupropion (Wellbutrin) Duloxetine (Cymbalta) Nortriptyline (Pamelor, Aventyl) Blood Pressure Metoprolol (Lopressor,Toprol XL) Propranolol (Inderal) initial benefit MABs Erenumab (Aimovig) Fremanezumab (Ajovy) Botulinum Toxin Onabotulinum Toxin A (Botox), Onabotulimum Toxin A (Botox) 6 years loss of efficacy, done with gen neuro outside of center Supplements CoQ10 Magnesium Riboflavin The following abortive medications have been tried but require high frequency use which can lead to Medication Overuse Headache: Analgesic Diclofenac (Voltaren, Cataflam, Cambia) Cambia works well. Generic diclofenac is not effective Indomethacin (Indocin) no benefit Ketorolac (Toradol) no benefit Meperidine (Demerol) Morphine (Mellissa, Ms Contin) Oxycodone Oxycodone/Acetaminophen (Percocet) Anti-Anxiety Diazepam (Valium) Anti-Migraine Lasmiditan (Reyvow) Rizatriptan (Maxalt) ineffective Sumatriptan (Imitrex, Sumavel) ineffective GEPANTS Rimegepant (Nurtec) no benefit Over the Counter Medications Acetaminophen (Tylenol) Acetaminophen/Aspirin/Caffeine (Excedrin, Goody s) Aspirin Ibuprofen (Advil, Motrin) Naproxen sodium (Aleve) The patient has been assessed for disorders which could contribute to breathing or swallowing difficulty, and there is no contraindication with PREEMPT Botox. There is no documented allergic reaction/hypersensitivity to any botulinum toxin and there is no active infection at proposed injection site REFERRING PHYSICIAN: PCP: David Kilgore [id number] [place] [address] Accompanied by: Self CC: Headache and Migraine HxCC: 37 year old female with history significant for migraine with aura, prolonged migraine aura, chronic migraine, PCOS, TMD, cervical disk herniation, neck pain, autoimmune arthritis, who presents for evaluation of migraines. HEADACHE TYPE 1: Onset: Recalls headaches in 2nd grade when she was crying with a headache. 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 Episodic and evolved and worsened over time and converted to daily eventually. Botox was helping well but then lost effect over time. Location: Bioccipital, TMJ areas, bitemporal, bifrontal, top of head. Neck. Description: Throbbing, pounding when bad. Characteristics: Duration: Headache attacks last more than 4 hours, multiple days. Frequency: 15 overall headache days per month which includes 3-5 migraine days per month but can be 8 or more, variable. Timing: Variable. Time to peak pain intensity: Fast. Associated symptoms: Aura: wavy lines less than an hour, blurred vision can last more than an hour, numbness/tingling on L side of face can last longer than 60 minutes. Photophobia, Phonophobia, and Nausea, rare vomiting. Relieving factors: Variable over time. Triggers: Strong smells, especially artificial smells. Lack of sleep, excessive heat, stress, tension in the neck. CURRENT ACUTE TREATMENTS: ---> Cambia -<10 days/month CURRENT PREVENTIVES: ---> Ajovy quarterly injections ---> Metoprolol ER 25 mg daily Prior Therapies Duration of Use Dose Reason for Discontinuation Other Therapies Nerve blocks Physical therapy Analgesic Diclofenac (Voltaren, Cataflam, Cambia) Cambia works well. Generic diclofenac is not effective Indomethacin (Indocin) no benefit Ketorolac (Toradol) no benefit Meperidine (Demerol) Morphine (Mellissa, Ms Contin) Oxycodone Oxycodone/Acetaminophen (Percocet) Anti-Anxiety Diazepam (Valium) Anti-Convulsant Divalproex sodium (Depakote) Pregabalin (Lyrica) Topiramate (Topamax, Trokendi XL, Qudexy) no benefit Anti-Depressant and Antipsychotic Bupropion (Wellbutrin) Duloxetine (Cymbalta) Nortriptyline (Pamelor, Aventyl) Antiemetics Metoclopramide Ondansetron zofran Anti-Migraine Lasmiditan (Reyvow) Rizatriptan (Maxalt) ineffective Sumatriptan (Imitrex, Sumavel) ineffective Blood Pressure Metoprolol (Lopressor,Toprol XL) Propranolol (Inderal) initial benefit MABs Erenumab (Aimovig) Fremanezumab (Ajovy) GEPANTS Rimegepant (Nurtec) no benefit Botulinum Toxin Onabotulinum Toxin A (Botox), Onabotulimum Toxin A (Botox) 6 years loss of efficacy, done with gen neuro outside of center Muscle Relaxer Baclofen (Lioresal) ineffective Chlorzoxazone (Parafon Forte) Cyclobenzaprine (Flexeril) ineffective Metaxalone (Skelaxin) Methocarbamol (Robaxin) lost efficacy Supplements CoQ10 Magnesium Riboflavin Other Medications Cyproheptadine (Periactin) Dexamethasone (Decadron) Diphenhydramine (Benadryl) Methylprednisolone (Medrol) Prednisone Over the Counter Medications Acetaminophen (Tylenol) Acetaminophen/Aspirin/Caffeine (Excedrin, Goody s) Aspirin Ibuprofen (Advil, Motrin) Naproxen sodium (Aleve) HEADACHE SCORES: Headache Questions 10/01/2022 01/09/2023 07/21/2023 ID Migraine Screener: - - 3 (Positive) ER visits in the last year: - - 2 ER visits since last office visit: 0 0 - Hospital stays in the last year: - - 0 Hospital stays since last office visit 0 0 - Limited ADLs in the last month: 10 3 5 Days missed from work or school in the last month: 0 0 0 Days headache pain free in the last month: 20 20 25 Days per month with ALL of the following symptoms - decreased productivity, light sensitivity and nausea: 5 1 3 Initial improvement of headache after botox injection at last visit: Not applicable, I did not have a botox injection at my last visit Not applicable, I did not have a botox injection at my last visit - Days per month with mild/moderate face pain: - - - Days per month with severe face pain: - - - Days per month free from face pain: - - - PRN medication usage in the last month: 7 10 4 Patient impression of improvement since last visit: Much improved Much improved - HIT-6 10/01/2022 01/09/2023 07/21/2023 HIT-6 - - - HIT-6 64 (Severe impact) 48 (Little or no impact) 65 (Severe impact) LETICIA - 2/7 SCORES 10/01/2022 01/09/2023 07/21/2023 LETICIA-2 Score 0 0 0 LETICIA-7 Score - - - Pain Disability Index 03/29/2021 05/22/2021 PDI Score 45 22 Migraine Specific QOL - Higher scores indicate better HRQL 10/01/2022 01/09/2023 07/21/2023 Role Function-Restrictive Transformed Score (range: 0-100) 60 80 40 Role Function-Preventive Transformed Score (range: 0-100) 70 80 50 Emotional Function Transformed Score (range: 0-100) 60 80 46.67 PHQ-9 10/01/2022 01/09/2023 07/21/2023 Score 6 0 2 RECENT LABS: Component Latest Ref Rng & Units 09/27/2022 10/04/2022 01/29/2023 05/28/2023 Protein, Total 6.3 - 8.0 g/dL 7.5 Albumin 3.9 - 4.9 g/dL 4.7 Calcium 8.5 - 10.2 mg/dL 9.6 Bilirubin, Total 0.2 - 1.3 mg/dL 0.3 Alkaline Phosphatase 34 - 123 U/L 47 AST 13 - 35 U/L 20 ALT 7 - 38 U/L 15 Glucose 74 - 99 mg/dL 95 BUN 7 - 21 mg/dL 12 Creatinine 0.58 - 0.96 mg/dL 0.76 Sodium 136 - 144 mmol/L 137 Potassium 3.7 - 5.1 mmol/L 4.0 Chloride 97 - 105 mmol/L 101 CO2 22 - 30 mmol/L 26 Anion Gap 9 - 18 mmol/L 10 eGFR >=60 mL/min/1.73m 103 WBC 3.70 - 11.00 k/uL 4.72 RBC 3.90 - 5.20 m/uL 4.24 Hemoglobin 11.5 - 15.5 g/dL 13.6 Hematocrit 36.0 - 46.0 % 40.4 MCV 80.0 - 100.0 fL 95.3 MCH 26.0 - 34.0 pg 32.1 MCHC 30.5 - 36.0 g/dL 33.7 RDW-CV 11.5 - 15.0 % 11.9 Platelet Count 150 - 400 k/uL 161 MPV 9.0 - 12.7 fL 11.0 Absolute nRBC <0.01 k/uL <0.01 Cholesterol, Total <200 mg/dL 147 Triglyceride <150 mg/dL 77 HDL Cholesterol >39 mg/dL 51 Non HDL Cholesterol <130 mg/dL 96 Fasting Time hrs 12 VLDL Cholesterol <30 mg/dL 15 TC:HDL Ratio <5.10 2.88 LDL Cholesterol <100 mg/dL 81 LDL:HDL Ratio <2.54 1.59 Hemoglobin A1C 4.3 - 5.6 % 4.9 Estimated Average Glucose mg/dL 94 Vitamin D 25 Hydroxy 31.0 - 80.0 ng/mL 31.9 TSH 0.270 - 4.200 mIU/L 2.250 T3 79 - 165 ng/dL 121 Free T4 0.9 - 1.7 ng/dL 1.1 RECENT IMAGING/DIAGNOSTICS: --MRI Brain w/wo contrast (03/22/21): Impression IMPRESSION: Normal MR appearance of the brain within constraints of mild motion degradation. No evidence of acute intracranial process, mass effect, or abnormal enhancement. Ore Buyer: KATH Transcribe Date/Time: Mar 22 2021 1:25P Dictated by : JINA CAT MD This examination was interpreted and the report reviewed and electronically signed by: JINA CAT MD on Mar 22 2021 1:30PM EST Results-Findings * * *Final Report* * * DATE OF EXAM: Mar 22 2021 12:45PM [facility] [id number] - MRI BRAIN WO/W IVCON / PROCEDURE REASON: Altered level of consciousness (LOC), unexplained * * * * Physician Interpretation * * * * EXAMINATION: MRI BRAIN WO/W IVCON HISTORY: Altered level of consciousness (LOC), unexplained TECHNIQUE: Routine brain MRI protocol without and with contrast including diffusion and gradient echo images. MQ: [id number] Contrast: 14 mL Dotarem IV COMPARISON: None. RESULT: Acute Change: There is no evidence of restricted diffusion to suggest an acute infarct. Hemorrhage: No evidence of prior parenchymal hemorrhage on the gradient echo images. Mass Lesion/ Mass Effect: No evidence of an intracranial mass or extra-axial fluid collection. No abnormal parenchymal or leptomeningeal enhancement is noted following contrast administration. No significant mass effect. Chronic Change: The white matter is within normal limits of signal intensity for age. Parenchyma: No significant volume loss for age. The brain parenchyma is otherwise within normal limits of signal intensity and morphology. Ventricles: Normal caliber and morphology. Skull Base: Hypothalamic and pituitary region are grossly normal. Craniocervical junction is normal. No significant marrow replacement process. Vasculature: Major intracranial arterial structures, and dural venous sinuses show typical flow void, suggesting patency by spin echo criteria. Other: Minimal mucosal thickening right maxillary sinus. The orbits and extracranial soft tissues are unremarkable. --CTA Brain/Neck (03/21/21): 03/21/2021 7:20 PM - Radiology, [place] In Impression IMPRESSION: Arterial blood flow was measured to detect acute large vessel occlusion by computer aided detection software: Not Performed Unremarkable CT angiography neck and head. Ore Buyer: KATH Transcribe Date/Time: Mar 21 2021 7:04P Dictated by : SHARMILA HAMLIN MD This examination was interpreted and the report reviewed and electronically signed by: SHARMILA HAMLIN MD on Mar 21 2021 7:18PM EST Results-Findings * * *Final Report* * * DATE OF EXAM: Mar 21 2021 6:48PM [facility] [place] HEAD W IVCON / PROCEDURE REASON: Altered mental status (AMS), unclear cause * * * * Physician Interpretation * * * * EXAMINATION: CTA NECK W IVCON, CTA HEAD W IVCON CLINICAL HISTORY: Acute confusion, headache, alteration in level of consciousness. TECHNIQUE: Spiral high resolution axial images were obtained through the head, neck and superior mediastinum following bolus administration of intravenous contrast for CT angiography. 3D maximum intensity projection images were created, reviewed and archived . MQ: CTAHN_4 Contrast: 155 mL Omnipaque [address] Radiation dose: Integrated Dose-Length Product (DLP) for this visit = 609 mGy*cm. CT Dose Reduction Employed: Iterative recon and mAs-kVp adjusted using patient size-age COMPARISON: Noncontrast head CT performed earlier on 03/21/2021. RESULT: BRAIN: Evaluation of the individual slices of the CTA demonstrates no evidence of an acute stroke. ASPECT Score = 10 Hemorrhage: No evidence of acute intracranial hemorrhage. ECASS hemorrhagic transformation score: Not Applicable Spot Sign Presence: Not Applicable Spot Sign Number: Not Applicable NECK: Technical Sales Support Manager (topogram) images: No additional significant findings. Soft tissues: The soft tissue planes are maintained throughout. No evidence of a soft tissue mass in the neck or superior mediastinum. No significant lymphadenopathy is seen. Spine: Alignment is normal. No significant degenerative changes are present. Lung apices: The visualized lung apices are clear. CT ARTERIOGRAM: Extracranial Circulation: Aortic Arch: There is a normal branching pattern from the aortic arch.. There is no significant stenosis in the proximal brachiocephalic vessels. Carotid Stenosis: Right Common: No significant stenosis. Right Internal Carotid Plaque: No significant plaque formation. Right Internal Carotid Stenosis (% by NASCET Criteria): 0% Left Common: No significant stenosis. Left Internal Carotid Plaque: No significant plaque formation. Left Internal Carotid Stenosis (% by NASCET Criteria): 0% Cervical Vertebral Arteries: Patency: Vertebral artery origins are patent. No significant narrowing or occlusion seen along the course of the vertebral arteries at the level of the neck. Dominance: Left. Intracranial Circulation: Anterior Circulation: No evidence of significant vessel narrowing, aneurysm, or occlusion. Vertebrobasilar Circulation: No evidence of significant vessel narrowing, aneurysm, or occlusion. --MRI cervical spine wo (11/07/21): Impression IMPRESSION: Right subarticular/foraminal disc extrusion at C6-7. Left paracentral disc protrusion at T7-8 No high-grade canal stenosis. Counting reference: Assume 7 cervical vertebrae with counting from the craniocervical junction. Ore Buyer: KATH Transcribe Date/Time: Nov 07 2021 10:34A Dictated by : LINDA WAHL MD This examination was interpreted and the report reviewed and electronically signed by: LINDA WAHL MD on Nov 07 2021 10:50AM EST Results-Findings * * *Final Report* * * DATE OF EXAM: Nov 07 2021 9:34AM [facility] [id number] - MRI CERVICAL SPINE WO IVCON / PROCEDURE REASON: multiple diagnoses * * * * Physician Interpretation * * * * EXAMINATION: MRI CERVICAL SPINE WO IVCON, MRI THORACIC SPINE WO IVCON CLINICAL HISTORY: Abnormal biceps reflex. Reflex, triceps, abnormal. Weakness of right arm. Paresthesia of right arm TECHNIQUE: Routine cervical and thoracic spine MR protocol without gadolinium. MQ: [id number]_3 COMPARISON: Cervical and thoracic spine radiographs 11/01/2021. RESULT: CERVICAL: Counting reference: Craniocervical junction. Anatomic Variants: None. Localizer images: No additional findings. Alignment: Slight reversal of normal lordosis at C6-7. Craniocervical junction: Craniocervical junction is normal. Cord: The cervical spinal cord is within normal limits of signal intensity and morphology. Bone marrow signal/fracture: Postsurgical change from left sided laminotomy at C6-7. No evidence of pathologic marrow infiltration. No evidence of prior fracture. Cervical soft tissues: The paraspinal soft tissues are within normal limits. C2-C3: Canal and foramina are patent. C3-C4: Canal and foramina are patent. C4-C5: Canal and foramina are patent. C5-C6: Canal and foramina are patent. C6-C7: Right subarticular disc extrusion effaces the lateral recess and proximal neural foramen, likely impinges upon the exiting right C7 nerve (sagittal image 5 series 2). Mild left-sided uncinate/facet hypertrophy, with postsurgical change resulting in mild artifact in this region although mild left foraminal narrowing is suspected. No significant canal stenosis. C7-T1: Canal and foramina are patent. THORACIC: Counting reference: Craniocervical junction. Lumbosacral localizer does not triangulate. Technical Sales Support Manager (topogram) images: No additional findings. Alignment: Alignment is anatomic. Cord: The thoracic spinal cord is within normal limits of signal intensity and morphology. Bone marrow signal/fracture: No evidence of pathologic marrow infiltration. No evidence of prior fracture. Thoracic soft tissues: The paraspinal soft tissues are within normal limits. Canal and foramina: Left paracentral small disc protrusion at T7-8 mildly effacing the left ventral thecal sac. The thoracic canal and foramina are patent throughout. 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 leflunomide (ARAVA) 10 mg tablet Take 1 tablet by mouth once daily. metaxalone (SKELAXIN) 800 mg tablet Take 1 tablet by mouth three times daily. for pain or muscle spasms. acetaminophen (ACETAMINOPHEN EXTRA STRENGTH) 500 mg tablet Take 1-2 tablets by mouth every 8 hours as needed for pain. docusate sodium (COLACE) 100 mg capsule Take 1 capsule by mouth twice daily. oxyCODONE IR (ROXICODONE) 5 mg immediate release tablet Take 1 tablet every 6 to 8 hours as needed for severe pain golimumab (SIMPONI) 50 mg/0.5 mL Inject 50mg ( 1 pen) subcutaneously every 4 weeks valACYclovir (VALTREX) 1 gram Take 1 tablet by mouth once daily. methocarbamol (ROBAXIN) 750 mg tablet Take 1 tablet by mouth four times daily. metoprolol succinate ER (TOPROL XL) 25 mg 24 hr tablet Take 1 tablet by mouth daily at bedtime. fremanezumab-vfrm (AJOVY AUTOINJECTOR) 225 mg/1.5 mL auto-injector Inject 4.5 mL under the skin every 3 months. Diclofenac Potassium (CAMBIA) 50 mg pwpk Take 1 Packet by mouth as needed for migraine headache. Can repeat dose in 2 hours, no more than 2 doses per day, or 2 days per week buPROPion SR (WELLBUTRIN SR) 150 mg 12 hr tablet Take 1 tablet by mouth twice daily. rosuvastatin (CRESTOR) 5 mg tablet Take 1 tablet by mouth once daily. Magnesium Citrate 150mg (Pure Encapsulations) Take 4 capsules daily. riboflavin, vitamin B2, (VITAMIN B-2) 100 mg tab Take 4 tablets by mouth once daily. coenzyme Q10 (COQ-10) 100 mg cap capsule Take 1 capsule by mouth twice daily. vitamin D3-folic acid 5,000 unit- 1 mg tab Take 5,000 Units by mouth once daily. multivitamin tablet Take 1 tablet by mouth once daily. No current facility-administered medications for this visit. ALLERGIES: ALLERGIES Allergen Reactions Dilaudid [Hydromorp* Itching Fentanyl Itching Sulfa (Sulfonamide * Rash FMH: FAMILY HISTORY Problem Relation Age of Onset Hyperlipidemia Mother baseline TC 300's, smoker Obesity Father Hyperlipidemia Father Hypertension Father SOCIAL: Social History Tobacco Use Smoking status: Never Smokeless tobacco: Never Vaping Use Vaping Use: Never used Substance Use Topics Alcohol use: Not Currently Comment: none since 2019 Drug use: No REVIEW OF SYSTEMS: General: Denies fever or chills, Denies unintentional weight loss. Sleep: normal Mood: Normal Energy: Normal - stable Stress: Normal Eyes: Glasses Ears: No known problems Mouth/Dentition: TMJ CV: No history of CV disease Respiratory: No known problems GI: No known problems : No known problems Menstrual: Regular menses Musculoskeletal: Neck pain Neurological: See HPI Psychiatric Disorders: No History of blood clots/bleeding disorder: No I have reviewed the Jt Status Assessment responses and discussed these with the patient: yes. DO Sunil Nevarez DO [facility] [place] Department of [facility] [address] [place] [address] Level of service: New level 4 (45-59 min). Time spent 55 min on the day of service, which included preparing to see the patient, [id number] patient care, completing clinical documentation, obtaining and/or reviewing separately obtained history, counseling and educating the patient/family/caregiver, and ordering medications, tests, or procedures. Medical Decision Making: Medical Decision Making Level: 1 - N/A cc: David Kilgore [address] [place] [address] documented in this encounter [facility] 07-22-2023 History of Present illness Narrative Episode Visit Count: 12 Therapist That Will Accept/Oversee The Plan Of Care: Mikal Bailey PT Start of Care Date: 06/13/23 Onset Date: 01/22/23 Patient Identified by Name and Date of : Yes REHABILITATION AND SPORTS THERAPY PHYSICAL THERAPY TREATMENT NOTE ASSESSMENT: Kira Adhikari tolerated the session with decreased symptoms. She demonstrated difficulty with arthritis flare per pt report. SIJ pain currently. The patient will continue to benefit from ongoing skilled physical therapy to progress toward set goals. PLAN FOR NEXT VISIT: Progress HEP as tolerated SUBJECTIVE: Quad feels a little better. Arthritis is flaring though. This happened two days after the last session so does not think it is a reaction to the BFR. Pain: Pain Pain Location: Thigh - Right, Buttocks - Right OBJECTIVE MEASURES WITH LEVEL OF FUNCTION: Iliacus and iliopsoas are tender to palpation TREATMENT: Therapeutic Exercise: 1: Standing hip flexor 3 x 30 sec 2: Standing BFR squats x 30, x15, x15, x15 (M cuff at 136 mmHg of pressure) 3: Sidelying clamshell pink TB 2 x 10 4: Sidelying hip abd x 12 Skilled Intervention: Patient was educated in proper exercise technique and purpose for exercises. Correct performance of therapeutic exercises was facilitated with verbal and visual cuing. Manual Therapy: 1: Active release for illiacus and iliopsoas 2: STM over iliopsoas tendon and iliacus muscle belly 3: Active release of gluteus medius 4: Thumb gliding over lateral R calf Skilled Intervention: Manual skills to improve joint mobility, ROM, and decrease pain. Utilized anatomy knowledge of the therapist, and assessment of patient's response to intervention. Billing Therapeutic Exercise Treatment Minutes: 13 Manual TherapyTreatment Minutes: 25 Total Treatment Time Minutes (timed/untimed): 38 Session Start Time : 750 Session Stop Time : 828 Mikal Bailey PT documented in this encounter [facility] 07-17-2023 History of Present illness Narrative Episode Visit Count: 11 Therapist That Will Accept/Oversee The Plan Of Care: Mikal Bailey PT Start of Care Date: 06/13/23 Onset Date: 01/22/23 Patient Identified by Name and Date of : Yes REHABILITATION AND SPORTS THERAPY PHYSICAL THERAPY PROGRESS REPORT PLAN OF CARE UPDATE: Assessment: Kira Adhikari demonstrates difficulty with standing, walking in the community, recreational activities, and squatting and improvements in overall hip ROM, strength, gait quality and pain intensity. She has progressed toward goals. Patient continues to present with impairments in ADL's, independence in exercise, overall function, range of motion, and strength that interfere with recreational activities, physical activities, lifting, heavy exertion, stair negotiation, walking in the community, walking in the house, standing, walking, squatting . Current prognosis is Good due to: current objective clinical presentation, good overall health status, positive past response to therapy, within-session changes, good support system/ coping skills . She will benefit from continued skilled therapy services to meet the updated goals for this plan of care as noted below. Goals updated on 04/24/2023; Goals updated on 07/17/2023: Goals for Episode of Care: created on 02/19/23 through 05/22/23 Independent in a Home Exercise Program. Met Patient will decrease pain rating by 2 points to meet minimal clinical important difference for numeric pain rating scale. Partially met Restore pain free cervical ROM to WNL to allow for improved functional Mobility. Improving Sleep throughout the night without pain/symptoms. Not met Patient will increase strength of R hip to 4+/5 to allow for improve mechanics and decrease pain. Improving, will continue Patient will demonstrate a 50% reduction in cervical muscle tenderness to Palpate. Progressing, will continue New goals created for right hip on 06/13/2023: [place] in home exercise program. Patient will decrease pain rating by 2 points to meet minimal clinical important difference for numeric pain rating scale. - MET Patient will demonstrate increase in right lower extremity strength to 5/5 during manual muscle testing in order to improve function for basic self-care tasks, home management tasks, leisure / recreation skills, light functional tasks, moderate to heavy functional tasks, prior functional tasks and work tasks.- Progressing, will continue Patient will increase flexibility of right hip to equal unaffected extremity/side to improve mechanics. - Not met, will continue Perform all daily activities with decreased report of symptoms/pain in 12 weeks. Perform running without pain. - Not able to assess yet Improve postural awareness. - Progressing, will continue Normal gait. - MET Reciprocal stair negotiation. - Not tested, will assess in future visit Patient Goals: To decrease pain and increase strength. To run a 5K in [place]. Planned Interventions, Frequency, and Duration: 2x/week, 4 weeks Total Number of Visits Planned: 8 Patient to be seen for Therapeutic exercise (35361), Neuromuscular re-education (58874), Manual therapy (43006), Therapeutic activities (55849), Self-detention management (86362), Gait Training (55497), Aquatic PT (25021), Patient/Family/Caregiver Education, General Conditioning, Body Mechanics Training, Functional training PLAN FOR NEXT VISIT: BFR bridges and SLR SUBJECTIVE: Patient Goals: To decrease pain and increase strength. To run a 5K in [place]. Functional Limitations: recreational activities, physical activities, lifting, heavy exertion, stair negotiation, walking in the community, walking in the house, standing, walking, squatting Prior Level of Function: Independent without limitations Intake Information: Prescription present Previous Treatment: Ice , Surgery Falls Interview: No positive findings with falls interview Pain: Pain Pain Level: 3 Pain Location: Thigh - Right, Buttocks - Right PROMIS Scales Higher is Better 07/17/2023 07/10/2023 06/13/2023 Phys Func - Score - 35 (moderate dysfunction) - Phys Func - Percentile - 7 % - Self-Eff Symptom - Score 45 (Average) - 56 (Average) Self-Eff Symptom - Percentile 31 % - 73 % T-scores: mean of general population = 50. 5 points is clinically meaningfully difference Percentiles provide an indication of how the patient's score ranks in relation to the general population. Higher percentile rankings indicate better function/quality of life. 50th percentile is the average of the general population and indicates half of respondents had a worse score. OBJECTIVE MEASURES WITH LEVEL OF FUNCTION: LE PROM R LE PROM: WNL R Hip Flexion: 105 Degrees (Some pain at the R hip joint) LE Flexibility Flexibility: Hip Flexor Flexibility, Quadriceps Flexibility R Hip Flexor Flexibility: tight L Hip Flexor Flexibility: WNL R Quadriceps Flexibility: WNL L Quadriceps Flexibility: WNL LE Strength R Hip Extension: 3+/5 R Hip Flexion (L2): 4/5 R Hip External Rotation: 4/5 R Knee Extension (L3): 4+/5 R Knee Flexion: 4+/5 R Ankle Dorsiflexion (L4): 5/5 Gait Gait Distance (feet): 50 Gait Device: None Gait Observation: WNL TREATMENT: Therapeutic Exercise: 1: All objective measures taken this session 2: Glute bridge BFR x 30 x10 x15 x15 (Medium cuff used at 136 mmHg; very challenging for pt) 3: Standing hip flexor stretch 2 x 30 sec Skilled Intervention: Patient was educated in proper exercise technique and purpose for exercises. Correct performance of therapeutic exercises was facilitated with verbal and visual cuing. Manual Therapy: 1: STM over R medial rotators with hip IR x 10 then ER x 10 Skilled Intervention: Manual skills to improve joint mobility, ROM, and decrease pain. Utilized anatomy knowledge of the therapist, and assessment of patient's response to intervention. Billing Therapeutic Exercise Treatment Minutes: 40 Manual TherapyTreatment Minutes: 5 Total Treatment Time Minutes (timed/untimed): 45 Session Start Time : 956 Session Stop Time : 1041 Mikal Bailey PT documented in this encounter [facility] 07-10-2023 History of Present illness Narrative Episode Visit Count: 10 Therapist That Will Accept/Oversee The Plan Of Care: Beatriz Melissa Start of Care Date: 06/13/23 Onset Date: 01/22/23 REHABILITATION AND SPORTS THERAPY PHYSICAL THERAPY TREATMENT NOTE ASSESSMENT: Kira Trejo Adhikari tolerated the session with no issues. She demonstrated improvements in tolerance for exercise and improved hip ROM within surgical restrictions. The patient will continue to benefit from ongoing skilled physical therapy to progress toward set goals and to continue with post-operative protocol. PLAN FOR NEXT VISIT: Start BFR. Calf raises, SLR, and Glute bridges SUBJECTIVE: Pt doing much better today. Notes that everything feels looser, no more sharp pains Pain: Pain Pain Level: 2 Pain Location: Thigh - Right, Buttocks - Right Description: Tightness, Sore Frequency: Intermittent OBJECTIVE MEASURES WITH LEVEL OF FUNCTION: TREATMENT: Therapeutic Exercise: 1: BFR acquisition (170 mmHg LOP; 136 = 80%) 2: Recumbent bike seat 5 x6 min (For improved hip ROM. Discussed pt's HEP, walking for exercise, justifying work restrictions for 12 weeks) 3: SLR 3x20 4: Glute bridging x10 (easy, progressed) 5: *Glute bridging plus marches 3x10 6: SL hip abduction 3x10 7: Clamshells 3x10 8: *TRX squats in 60-90 degree range 2x10 (discussed using chair at home to block her from squatting down too far) Skilled Intervention: Patient was educated in proper exercise technique and purpose for exercises. Skilled judgment was provided in selection of appropriate interventions. Provided written instruction for home exercise program to facilitate proper performance and compliance. Correct performance of therapeutic exercises was facilitated with verbal, visual, and tactile cuing. Manual Therapy: 1: CFM to R quads with push to tolerance Skilled Intervention: Manual skills to improve joint mobility, ROM, and decrease pain. Utilized anatomy knowledge of the therapist, and assessment of patient's response to intervention. Billing Therapeutic Exercise Treatment Minutes: 35 Manual TherapyTreatment Minutes: 10 Total Treatment Time Minutes (timed/untimed): 45 Session Start Time : 917 Session Stop Time : 100 Beatriz Melissa PT documented in this encounter [facility] 07-03-2023 History of Present illness Narrative Episode Visit Count: 8 Therapist That Will Accept/Oversee The Plan Of Care: Beatriz Melissa Start of Care Date: 06/13/23 Onset Date: 01/22/23 REHABILITATION AND SPORTS THERAPY PHYSICAL THERAPY TREATMENT NOTE ASSESSMENT: Kira Adhikari tolerated the session with decreased symptoms and no issues. She demonstrated improvements in hip pain with manual, which stopped the catching and groin pain today. The patient will continue to benefit from ongoing skilled physical therapy to progress toward set goals and to continue with post-operative protocol. PLAN FOR NEXT VISIT: Continue manual as needed, progress exercises per protocol and tolerance SUBJECTIVE: Pt has a catching in the right buttocks and tightness in the inner thigh/groin area Pain: Pain Pain Level: 4 Pain Location: Buttocks - Right, Groin - Right Description: Tightness, Sore Frequency: Continuous OBJECTIVE MEASURES WITH LEVEL OF FUNCTION: Radicular pain, groin pain reproduced with palpation to gluteals and pectineus/adductor brevis TREATMENT: Therapeutic Exercise: 1: SLR 3x10 2: *Glute bridges 3x10 3: Recumbent bikes seat 6 x6 min (used for improved hip ROM. Discussed HEP, function at home, and current symptoms) Skilled Intervention: Patient was educated in proper exercise technique and purpose for exercises. Skilled judgment was provided in selection of appropriate interventions. Provided written instruction for home exercise program to facilitate proper performance and compliance. Correct performance of therapeutic exercises was facilitated with verbal, visual, and tactile cuing. Manual Therapy: 1: Extensive STM and CFM to R gluteals, adductors, and piriformis with push to tolerance 2: Supine hip abduction to tolerated end range 3: Hooklying BFKO to tolerated end range Skilled Intervention: Manual skills to improve joint mobility, ROM, and decrease pain. Utilized anatomy knowledge of the therapist, and assessment of patient's response to intervention. Billing Therapeutic Exercise Treatment Minutes: 10 Manual TherapyTreatment Minutes: 36 Total Treatment Time Minutes (timed/untimed): 46 Session Start Time : 915 Session Stop Time : 1002 Beatriz Melissa PT documented in this encounter [facility] 07-03-2023 Miscellaneous Notes Ambulatory Pharmacy Prior Authorization Note Provider Intervention Required?: No- Pharmacy completed on your behalf. Rx Plan: [facility] Drug: AJOVY (fremanezumab-vfrm) injection 225MG/1.5ML auto-injectors Cover My Meds [place]: [id number] Determination: Approved Prior Authorization/Case #: n/a Prior Authorization Expiration: 12/29/23 Time to PA Submission in CMM: 15 min Time to PA Determination in CMM: >7 days Additional Information: PLEASE NOTE: Pt will need follow up office visit to review/document efficacy and tolerability of treatment before prior auth expiration. Please ensure a future follow up appt is scheduled with your patient. This will ensure no interruption in patient's ability to obtain medication refills. Prescriptions will now be processed through [facility] for determination of next steps. For questions relating to this submission, please contact [facility] at [phone] Images from the original note were not included. Approval letter attached to chart via Onbase. Recall letter submitted. [facility] received prescription(s) for AJOVY (fremanezumab-vfrm) injection 225MG/1.5ML auto-injectors . Benefits investigation was conducted, indicating that a prior authorization is required. PA was initiated and pending review through [employer]. All pertinent clinical information was submitted to insurance. [facility] King: [id number] Ordering Provider: Sue Concepcion MD Murtaugh, Alisha, RN [facility] P: , F: documented in this encounter [facility] 06-30-2023 Miscellaneous Notes Pharmacy generated request, refill not appropriate. Dian Sierra PA-C documented in this encounter [facility] 06-26-2023 History of Present illness Narrative Episode Visit Count: 7 Therapist That Will Accept/Oversee The Plan Of Care: Beatriz Shin Start of Care Date: 06/13/23 Onset Date: 01/22/23 REHABILITATION AND SPORTS THERAPY PHYSICAL THERAPY TREATMENT NOTE ASSESSMENT: Kira Adhikari tolerated the session with no issues. She demonstrated improvements in tolerance for WB, hip flexion, and added strengthening exercises. The patient will continue to benefit from ongoing skilled physical therapy to progress toward set goals. PLAN FOR NEXT VISIT: May try glute bridging SUBJECTIVE: Patient Reason for Visit: Pt doing well, out of brace now and able to progress to FWB over next 4 days Pain: Pain Pain Level: 2 Pain Location: Thigh - Right Description: Sore Frequency: Continuous OBJECTIVE MEASURES WITH LEVEL OF FUNCTION: 110 degrees R hip flexion TREATMENT: Therapeutic Exercise: 1: *SLR 2x10 2: *SKC 3x30 sec on R 3: TA bracing 2x10, 5 sec holds 4: *TA bracing plus hip hikes 2x10 5: Recumbent bikes seat 7 x5 min (used for improved hip flexion ROM today) Skilled Intervention: Patient was educated in proper exercise technique and purpose for exercises. Skilled judgment was provided in selection of appropriate interventions. Provided written instruction for home exercise program to facilitate proper performance and compliance. Correct performance of therapeutic exercises was facilitated with verbal and visual cuing. Manual Therapy: 1: Supine hip IR PROM: 1 x 20 reps. 2: Supine hip flexion to <90 degrees: 1 x 20 reps. 3: Supine hip ER with hip around 70 degrees: 1 x 20 reps. 4: Supine hip abduction to shoulder width PROM: 1 x 20 reps. 5: Supine hip circumduction: 1 x 20 reps each direction. Skilled Intervention: Manual skills to improve joint mobility, ROM, and decrease pain. Utilized anatomy knowledge of the therapist, and assessment of patient's response to intervention. Gait Trainin: Discussed weaning out of crutches over next week. Start with 50% WB both crutches, transition to 1 crutch, eventually by end of next week FWB and no crutches as long as no limp or other issues Skilled Intervention: Facilitated proper gait cycle with the use of verbal and visual cues for correction of gait deviations identified in the objective section above. Billing Therapeutic Exercise Treatment Minutes: 20 Manual TherapyTreatment Minutes: 10 Gait Training Treatment Minutes: 9 Total Treatment Time Minutes (timed/untimed): 39 Session Start Time : 50 Session Stop Time : 1029 Beatriz Shin, PT documented in this encounter [facility] 06-26-2023 History of Present illness Narrative Images from the original note were not included. Patient Summary: Kira is a 37 year old Female who presents for follow-up evaluation of obesity/weight management to treat and prevent related co-morbidities. She has been taking Mounjaro which was prescribed by endocrinology in October 2022 with subsequent weight loss of >40 lbs and significant decrease in inflammatory symptoms. She would like to continue care locally. She has noticed thinning hair recently. Recent right hip surgery - recovering well. Interval History - Mounjaro 7.5 mg weekly since 04/29/2023 She feels the medication is helping to decrease weight, hot flashes and improve sleep and blood sugar. She is interested in increasing dose to 10 mg to continue some additional weight loss since she is recovering from hip surgery and will have an future hip surgery on the left hip. Exercise: PT for recent right hip surgery Stress: stable Sleep: stable Weight history: Last 2 Encounter Wt Readings: Date: Wt: 06/26/2023 141 lb (64 kg) BMI 23.46 06/07/2023 141 lb (64 kg) 04/11/2023 155 lb Mounjaro 7.5 on 04/29/202310/2022 193 lb BMI 32.1 Bupropion (Wellbutrin) Start date: ?04/02/2023 Dose:150 mg twice a day -- Patient reports suppression of her appetite and increase in satiety since starting -- Patient reports No side effects after starting bupropion. Mounjaro Start date: ?10/2023 Start weight: ?183 lbs. Dose: 7.5 mg -- Patient reports suppression of her appetite and increase in satiety since starting -- Patient reports no side effects after starting Estimated Creatinine Clearance: 90.3 mL/min (based on SCr of 0.76 mg/dL). 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 90 tablet 0 metaxalone (SKELAXIN) 800 mg tablet Take 1 tablet by mouth three times daily. for pain or muscle spasms. 270 tablet 0 acetaminophen (ACETAMINOPHEN EXTRA STRENGTH) 500 mg tablet Take 1-2 tablets by mouth every 8 hours as needed for pain. 50 tablet 0 docusate sodium (COLACE) 100 mg capsule Take 1 capsule by mouth twice daily. 60 capsule 0 naproxen (NAPROSYN) 500 mg tablet Take 1 tablet by mouth twice daily with meals for 21 days. 42 tablet 0 oxyCODONE IR (ROXICODONE) 5 mg immediate release tablet Take 1 tablet every 6 to 8 hours as needed for severe pain 12 tablet 0 golimumab (SIMPONI) 50 mg/0.5 mL Inject 50mg ( 1 pen) subcutaneously every 4 weeks 1.5 mL 0 valACYclovir (VALTREX) 1 gram Take 1 tablet by mouth once daily. 90 tablet 3 methocarbamol (ROBAXIN) 750 mg tablet Take 1 tablet by mouth four times daily. 360 tablet 3 metoprolol succinate ER (TOPROL XL) 25 mg 24 hr tablet Take 1 tablet by mouth daily at bedtime. 90 tablet 3 fremanezumab-vfrm (AJOVY AUTOINJECTOR) 225 mg/1.5 mL auto-injector Inject 4.5 mL under the skin every 3 months. 4.5 mL 3 Diclofenac Potassium (CAMBIA) 50 mg pwpk Take 1 Packet by mouth as needed for migraine headache. Can repeat dose in 2 hours, no more than 2 doses per day, or 2 days per week 18 Packet 3 tirzepatide (MOUNJARO) 7.5 mg/0.5 mL pen injector Inject 7.5 mg subcutaneously one time a week. 2 mL 2 buPROPion SR (WELLBUTRIN SR) 150 mg 12 hr tablet Take 1 tablet by mouth twice daily. 180 tablet 3 rosuvastatin (CRESTOR) 5 mg tablet Take 1 tablet by mouth once daily. 90 tablet 3 Magnesium Citrate 150mg (Pure Encapsulations) Take 4 capsules daily. riboflavin, vitamin B2, (VITAMIN B-2) 100 mg tab Take 4 tablets by mouth once daily. coenzyme Q10 (COQ-10) 100 mg cap capsule Take 1 capsule by mouth twice daily. vitamin D3-folic acid 5,000 unit- 1 mg tab Take 5,000 Units by mouth once daily. multivitamin tablet Take 1 tablet by mouth once daily. No current facility-administered medications for this visit. ROS PCOS IFG dyslipidemia BP 100/70 Pulse 84 Wt 141 lb (64 kg) LMP 02/14/2023 (Exact Date) SpO2 99% BMI 23.46 kg/m Appointment on 05/28/2023 Component Date Value Ref Range Status WBC 05/28/2023 4.72 3.70 - 11.00 k/uL Final RBC 05/28/2023 4.24 3.90 - 5.20 m/uL Final Hemoglobin 05/28/2023 13.6 11.5 - 15.5 g/dL Final Hematocrit 05/28/2023 40.4 36.0 - 46.0 % Final MCV 05/28/2023 95.3 80.0 - 100.0 fL Final MCH 05/28/2023 32.1 26.0 - 34.0 pg Final MCHC 05/28/2023 33.7 30.5 - 36.0 g/dL Final RDW-CV 05/28/2023 11.9 11.5 - 15.0 % Final Platelet Count 05/28/2023 161 150 - 400 k/uL Final MPV 05/28/2023 11.0 9.0 - 12.7 fL Final Absolute nRBC 05/28/2023 <0.01 <0.01 k/uL Final Protein, Total 05/28/2023 7.5 6.3 - 8.0 g/dL Final Albumin 05/28/2023 4.7 3.9 - 4.9 g/dL Final Calcium, Total 05/28/2023 9.6 8.5 - 10.2 mg/dL Final Bilirubin, Total 05/28/2023 0.3 0.2 - 1.3 mg/dL Final Alkaline Phosphatase 05/28/2023 47 34 - 123 U/L Final AST 05/28/2023 20 13 - 35 U/L Final ALT 05/28/2023 15 7 - 38 U/L Final Glucose 05/28/2023 95 74 - 99 mg/dL Final BUN 05/28/2023 12 7 - 21 mg/dL Final Creatinine 05/28/2023 0.76 0.58 - 0.96 mg/dL Final Sodium 05/28/2023 137 136 - 144 mmol/L Final Potassium 05/28/2023 4.0 3.7 - 5.1 mmol/L Final Chloride 05/28/2023 101 97 - 105 mmol/L Final CO2 05/28/2023 26 22 - 30 mmol/L Final Anion Gap 05/28/2023 10 9 - 18 mmol/L Final Estimated Glomerular Filtration Ra* 05/28/2023 103 >=60 mL/min/1.73m Final Bilirubin, Conjugated 05/28/2023 <0.2 <0.2 mg/dL Final Appointment on 04/02/2023 Component Date Value Ref Range Status SARS-CoV-2 (Agent of COVID-19) 04/02/2023 Not detected See comment Final Assessment/Plan: Kira Adhikari is a 37 year old yo with Class I obesity who presented today for follow up for supervised weight loss to treat and prevent related co-morbidities. ASSESSMENT/PLAN: 1. PCOS (polycystic ovarian syndrome) - ICD9: 256.4, ICD10: E28.2 (primary diagnosis) - TIRZEPATIDE 10 MG/0.5 ML SUBCUTANEOUS PEN INJECTOR 2. Hyperlipidemia, unspecified hyperlipidemia type - ICD9: 272.4, ICD10: E78.5 - TIRZEPATIDE 10 MG/0.5 ML SUBCUTANEOUS PEN INJECTOR - LIPID PANEL BASIC 3. Impaired fasting glucose - ICD9: 790.21, ICD10: R73.01 - TIRZEPATIDE 10 MG/0.5 ML SUBCUTANEOUS PEN INJECTOR 4. Inflammatory arthritis - ICD9: 714.9, ICD10: M19.90 Continue weight loss 5. Vitamin D deficiency - ICD9: 268.9, ICD10: E55.9 - VITAMIN D 25 HYDROXY 6. Thinning hair - ICD9: 704.00, ICD10: L65.9 - TSH BLD - T4 FREE/FREE THYROX - T3 BLD - VITAMIN B12 BLOOD 7. Class 1 obesity with serious comorbidity and body mass index (BMI) of 32.0 to 32.9 in adult, unspecified obesity type - ICD9: 278.00, V85.32, ICD10: E66.9, Z68.32 - TIRZEPATIDE 10 MG/0.5 ML SUBCUTANEOUS PEN INJECTOR - VITAMIN B12 BLOOD -Continue healthy low-carb nutrition with adequate protein. - Continue PT following right hip surgery. Prescription instructions reviewed with patient as applicable. Potential red flag symptoms discussed with the patient. Reviewed appropriate action plan to take if red flag symptoms occur. Patient agreeable to treatment plan. Follow up in 6 months. Maddie Moraes APRN.CNP Medical Decision Making: Problems: Moderate: 1+ chronic illnesses with change Risk: Moderate: Drug management and Moderate risk from testing/treatment Medical Decision Making Level: 4 - Moderate documented in this encounter [facility] 06-25-2023 Miscellaneous Notes Addended by: DIAN SIERRA on: 06/25/2023 05:20 PM Modules accepted: Orders documented in this encounter [facility] 06-25-2023 Miscellaneous Notes The following approved medication requests have been transmitted electronically. Requested Prescriptions Pending Prescriptions Disp Refills leflunomide (ARAVA) 10 mg tablet 90 tablet 0 Sig: Take 1 tablet by mouth once daily. Wisam Chung PA-C Pharmacist Refill Authorization Review Name: Kira Adhikari Date: 06/25/2023 Time: 3:21 PM Refill authorization request(s) received and reviewed under effective consult agreement. Upon review, did confirm that an active patient-provider relationship exists and that the prescriber is a participating physician under the consult agreement. Last office visit in this department: Visit date not found Last distance health visit in this department: 06/11/2023 Wisam Chung PA-C Next appointment in this department: Visit date not found The medication(s) fall under the following categories: Category 3: Medication(s) does not qualify for pharmacist renewal due to medication excluded from collaborative practice agreement. Renewal request sent to provider for review. Requested Prescriptions Pending Prescriptions Disp Refills leflunomide (ARAVA) 10 mg tablet 90 tablet 0 Sig: Take 1 tablet by mouth once daily. Number of refills approved in this encounter: 0 Number of refills forwarded to provider for review: 1 Number of refills denied in this encounter: 0 Zi Carranza RPh documented in this encounter [facility] 06-19-2023 History of Present illness Narrative Episode Visit Count: 5 Therapist That Will Accept/Oversee The Plan Of Care: Beatriz Melissa Start of Care Date: 06/13/23 Onset Date: 01/22/23 REHABILITATION AND SPORTS THERAPY PHYSICAL THERAPY TREATMENT NOTE ASSESSMENT: Kira Adhikari tolerated the session with decreased symptoms and no issues. She demonstrated improvements in muscle tightness post manual. The patient will continue to benefit from ongoing skilled physical therapy to progress toward set goals and to continue with post-operative protocol. PLAN FOR NEXT VISIT: Continue per surgical protocol; limited hip flexion to 90 degrees x1 more week SUBJECTIVE: Patient Reason for Visit: Pt hasnt gotten much help from family to do exercises, getting them in 2 times a day consistently though. Feeling good today, just mm tightness Pain: Pain Pain Level: 4 Pain Location: Hip - Right Description: Tightness, Sore Frequency: Continuous OBJECTIVE MEASURES WITH LEVEL OF FUNCTION: Tenderness relieved with manual to quads and glutes TREATMENT: Manual Therapy: 1: Supine hip IR PROM: 1 x 20 reps. 2: Supine hip flexion to <90 degrees: 1 x 20 reps. 3: Supine hip ER with hip around 70 degrees: 1 x 20 reps. 4: Supine hip abduction to shoulder width PROM: 1 x 20 reps. 5: Supine hip circumduction: 1 x 20 reps each direction. 6: Prone hip IR: 1 x 20 reps. 7: STM with foam roller to quads and glutes with push to tolerance 8: Prone PROM quad stretch 3x30 sec Skilled Intervention: Manual skills to improve joint mobility, ROM, and decrease pain. Utilized anatomy knowledge of the therapist, and assessment of patient's response to intervention. Billing Manual TherapyTreatment Minutes: 40 Total Treatment Time Minutes (timed/untimed): 40 Session Start Time : 1012 Session Stop Time : 1052 Beatriz Shin, PT documented in this encounter [facility] 06-16-2023 Miscellaneous Notes WEIGHT GOAL 167 lbs 1 BMI Points Last 3 Encounter BP Readings: Date: BP: 06/12/2023 104/57 05/30/2023 104/60 02/19/2023 121/65 Last 3 LDL readings: LDL Cholesterol (mg/dL) Date Value 01/29/2023 81 10/04/2022 195 07/03/2022 226 01/23/2021 179 02/03/2020 178 No results found for: LDLCHOLDIR Hemoglobin A1C (%) Date Value 10/04/2022 4.9 01/23/2021 5.2 MEDICATIONS PER RX DATABASE ROSUVASTATIN Due for refill AJOVY, METOPROLOL SUCCINATE, CAMBIA Adherent with medication refills YES Date Verified 06/16/2023 Is member submitting receipts for Reimbursement NO Is member eligible for medication reimbursement No Is Employee Health Plan primary Yes documented in this encounter [facility] 06-16-2023 History of Present illness Narrative Episode Visit Count: 4 Therapist That Will Accept/Oversee The Plan Of Care: Beatriz Melissa Start of Care Date: 06/13/23 Onset Date: 01/22/23 REHABILITATION AND SPORTS THERAPY PHYSICAL THERAPY TREATMENT NOTE ASSESSMENT: Kira Adhikari tolerated the session with no issues. She demonstrated improvements in exercise tolerance and glute pain with manual techniques. The patient will continue to benefit from ongoing skilled physical therapy to progress toward set goals and to continue with post-operative protocol. PLAN FOR NEXT VISIT: Continue per prost op protocol SUBJECTIVE: Patient Reason for Visit: Pt doing well and pain is controlled. Nothing above a 5/10 pain so far with meloxicam only. Pain: Pain Pain Level: 5 Pain Location: Hip - Right Description: Aching Frequency: Intermittent OBJECTIVE MEASURES WITH LEVEL OF FUNCTION: TREATMENT: Therapeutic Exercise: 1: *Prone hip IR x20 2: *Heel slides with strap assist 3: Prone lying x5 min 4: Glute, abdominal, hip abd and add sets x10, 5 sec holds Skilled Intervention: Patient was educated in proper exercise technique and purpose for exercises. Skilled judgment was provided in selection of appropriate interventions. Correct performance of therapeutic exercises was facilitated with verbal, visual, and tactile cuing. Manual Therapy: 1: Supine hip IR PROM: 1 x 20 reps. 2: Supine hip flexion to <90 degrees: 1 x 20 reps. 3: Supine hip ER with hip around 70 degrees: 1 x 20 reps. 4: Supine hip abduction to shoulder width PROM: 1 x 20 reps. 5: Supine hip circumduction: 1 x 20 reps each direction. 6: Prone hip IR: 1 x 20 reps. 7: CFM with lacrosse ball to R glue med with push to tolerance x5 min Skilled Intervention: Manual skills to improve joint mobility, ROM, and decrease pain. Utilized anatomy knowledge of the therapist, and assessment of patient's response to intervention. Billing Therapeutic Exercise Treatment Minutes: 15 Manual TherapyTreatment Minutes: 25 Total Treatment Time Minutes (timed/untimed): 40 Beatriz Melissa PT documented in this encounter [facility] 06-13-2023 History of Present illness Narrative Episode Visit Count: 3 Therapist That Will Accept/Oversee The Plan Of Care: Beatriz Melissa Start of Care Date: 06/13/23 Onset Date: 01/22/23 Patient Identified by Name and Date of : Yes REHABILITATION AND SPORTS THERAPY PHYSICAL THERAPY RE-EVALUATION PLAN OF CARE UPDATE: Assessment: Kira Adhikari returns to physical therapy 1 day after right hip surgery. She has new goals added to address her right hip status post surgery. Patient continues to present with impairments in ADL's, balance, flexibility, gait, independence in exercise, joint mobility, overall function, posture, range of motion, strength, and tissue tenderness that interfere with recreational activities, physical activities, lifting, heavy exertion, stair negotiation, walking in the community, walking in the house, standing, walking, squatting. Current prognosis is Good due to: current objective clinical presentation, good overall health status, positive past response to therapy, within-session changes, good support system/ coping skills. The patient demonstrates good performance with ambulation with crutches and right hip brace donned, appropriate weightbearing on the right lower extremity per the postop guidelines, and was able to participate in all exercises and physical therapy this date with minimal discomfort. She will benefit from continued skilled therapy services to meet the updated goals for this plan of care as noted below. Goals updated on 04/24/2023; Goals updated on 06/13/2023: Goals for Episode of Care: created on 02/19/23 through 05/22/23 Independent in a Home Exercise Program. Met Patient will decrease pain rating by 2 points to meet minimal clinical important difference for numeric pain rating scale. Partially met Restore pain free cervical ROM to WNL to allow for improved functional Mobility. Improving Sleep throughout the night without pain/symptoms. Not met Patient will increase strength of R hip to 4+/5 to allow for improve mechanics and decrease pain. Improving Patient will demonstrate a 50% reduction in cervical muscle tenderness to [place]. Not met New goals created for right hip on 06/13/2023: [place] in home exercise program. Patient will decrease pain rating by 2 points to meet minimal clinical important difference for numeric pain rating scale. Patient will demonstrate increase in right lower extremity strength to 5/5 during manual muscle testing in order to improve function for basic self-care tasks, home management tasks, leisure / recreation skills, light functional tasks, moderate to heavy functional tasks, prior functional tasks and work tasks. Patient will increase flexibility of right hip to equal unaffected extremity/side to improve mechanics. Perform all daily activities with decreased report of symptoms/pain in 12 weeks. Perform running without pain. Improve postural awareness. Normal gait. Reciprocal stair negotiation. Patient Goals: To decrease pain and increase strength. To run a 5K in [place]. Planned Interventions, Frequency, and Duration: 1x/week, 16 weeks Total Number of Visits Planned: 16 Patient to be seen for Therapeutic exercise (24135), Neuromuscular re-education (48785), Manual therapy (40125), Therapeutic activities (32539), Self-detention management (54327), Gait Training (73311), Aquatic PT (11302), Patient/Family/Caregiver Education, General Conditioning, Body Mechanics Training, Functional training PLAN FOR NEXT VISIT: Assess response to last physical therapy visit. Continue to progress right hip range of motion per the postop guidelines. Continue with exercises per the postop guidelines. SUBJECTIVE: Patient Reason for Visit: Patient reports to physical therapy 1 day status post right hip surgery. The patient reports adherence to wearing the brace on the right hip. The patient reports adherence to utilizing the crutches and appropriate weightbearing precautions. The patient reports that she will be returning back to [place] to continue with her physical therapy program. Patient Goals: To decrease pain and increase strength. To run a 5K in [place]. Functional Limitations: recreational activities, physical activities, lifting, heavy exertion, stair negotiation, walking in the community, walking in the house, standing, walking, squatting Prior Level of Function: Independent without limitations Intake Information: Prescription present Previous Treatment: Ice , Surgery Falls Interview: No positive findings with falls interview Pain: Pain Pain Level: 3 Pain Location: Hip - Right Description: Sore, Aching Frequency: Intermittent Post Treatment Pain Post Treatment Pain Level: No Change Post Treatment Pain Location: Hip - Right PROMIS Scales Higher is Better 06/13/2023 06/06/2023 03/25/2023 Phys Func - Score - 41 (mild dysfunction) 43 (mild dysfunction) Phys Func - Percentile - 18 % 24 % Self-Eff Symptom - Score 56 (Average) - - Self-Eff Symptom - Percentile 73 % - - T-scores: mean of general population = 50. 5 points is clinically meaningfully difference Percentiles provide an indication of how the patient's score ranks in relation to the general population. Higher percentile rankings indicate better function/quality of life. 50th percentile is the average of the general population and indicates half of respondents had a worse score. OBJECTIVE MEASURES WITH LEVEL OF FUNCTION: Posture / Alignment Posture: Forward head Hip Observations Hip Brace: Post-op brace Functional Strength Functional Strength: Supine<>sit, Sit<>stand Supine<>sit: Mod I Sit/Stand: Independent Gait Weight Bearing Status: PWB (20 pound weightbearing on right lower extremity.) Gait: Modified Independent Gait Distance (feet): 50 Gait Device: Crutches Gait Observation: Patient ambulates with bilateral axillary crutches with brace donned on the right lower extremity. Stairs: Modified Independent Stairs: Step to gait pattern on stairs with brace donned. TREATMENT: Re-evaluation: Performed due to the following change of patient status: Patient had surgery on her right hip on 06/12/2023. Therapeutic Exercise: 1: Education on physical therapy plan of care. Education on physical therapy impairments related to posture and function. Education provided on anatomy and physiology pertaining to patient's chief complaint. 2: Hook lying abdominal brace: 2 x 10 reps. 3: Hook lying hip adduction: 1 x 10 reps with short hold. 4: Hook lying hip abduction isometric: 1 x 10 reps. 5: Prone knee flexion stretch: 2 x 30 seconds. 6: Hook lying gluteal set: 1 x 10 reps. Skilled Intervention: Patient was educated in proper exercise technique and purpose for exercises. Skilled judgment was provided in selection of appropriate interventions. Provided written instruction for home exercise program to facilitate proper performance and compliance. Manual Therapy: 1: Supine hip IR PROM: 1 x 20 reps. 2: Supine hip flexion to <90 degrees: 1 x 20 reps. 3: Supine hip ER with hip around 70 degrees: 1 x 20 reps. 4: Supine hip abduction to shoulder width PROM: 1 x 20 reps. 5: Supine hip circumduction: 1 x 20 reps each direction. 6: Prone hip IR: 1 x 20 reps. Skilled Intervention: Manual skills to improve joint mobility, ROM, and decrease pain. Utilized anatomy knowledge of the therapist, and assessment of patient's response to intervention. Billing * Re-Evaluation : 1 Unit Therapeutic Exercise Treatment Minutes: 20 Manual TherapyTreatment Minutes: 10 Total Treatment Time Minutes (timed/untimed): 45 Aryan Childers PT documented in this encounter [facility] 06-12-2023 History of Present illness Narrative [facility] has been servicing patient for cycles/refills of Simpoini. Benefits investigation was conducted, indicating that a prior authorization renewal is required. Prior authorization was initiated via email and is pending review. Plan Name: [facility] Phone/ , opt / [phone] Email: [email or web address] Domitila Galeano (Two Way Radio Installer) documented in this encounter [facility] 06-12-2023 Note HNO ID: [id number] Author: Rene Fisher MD Service: Anesthesiology Author Type: Anesthesiologist Type: Anesthesia Procedure Notes Filed: 06/12/2023 12:47 PM Note Text: ANESTHESIOLOGY PROCEDURE NOTE Airway General Information Procedure Start Time/Medication Administration: 06/12/2023 12:24 PM Patient location during procedure: OR Timeout Performed Pre-procedure: timeout performed Consent Obtained: Yes Patient identity confirmed: patient Staffing Anesthesiologist: Rene Fisher MD Performed by: anesthesiologist Indications and Patient Condition Indications for airway management: anesthesia Preoxygenated: yes anesthesia circuit Patient position: sniffing Method: asleep Cricoid Pressure: No Manual In-Line Stabilization: No Difficult Mask: No Final Airway Details Final airway type: endotracheal airway Final Endotracheal Airway: ETT Cuffed: yes Successful intubation technique: video laryngoscopy Devices used: Mallory Endotracheal tube insertion site: oral Blade: Charlette Blade size: #3 ETT size (mm): 7.0 Measured from: lips Measurement (cm): 22 Placement verified by: capnometry Cormack-Lehane Classification: grade I - full view of glottis Number of attempts at approach: 1 Ventilation between attempts: none Failed airway: no Unrecognized esophageal intubation: no Airway not difficult SIGNATURE: Rene Fisher MD PATIENT NAME: Kira Adhikari DATE: June 12, 2023 TIME: 12:46 PM CSN: [id number] [facility] 06-11-2023 History of Present illness Narrative Orders signed Dian Sierra PA-C documented in this encounter [facility] 06-07-2023 Instructions Cierra Chávez APRN.MILLED RICE BROKER - 06/07/2023 8:14 AM EDT PATIENT PREOPERATIVE INSTRUCTIONS Emre De Leon MD has scheduled you for your procedure at this surgery center: [facility]: [phone] --[phone] [address]. Please read below carefully for your personalized instructions. Dietary Restrictions: - No solid food after midnight. - You may have 12 ounces of clear liquids (water, clear juices such as apple juice or gatorade, carbonated beverages, clear tea, black coffee, jello) until 2 hours before scheduled arrival at facility. Is Patient Diabetic:No Medications: Unless instructed differently below, stay on all of your medications until your surgery. Approved medications to take the morning of surgery with a sip of water: Robaxin If you start any new medications after today's visit, please contact the surgeon's office. Blood Thinning Medications: - Stop NSAIDS (Ibuprofen, Advil, Aleve, Motrin, Celebrex, Mobic, etc.) 7 days before surgery, as directed by your surgeon. - Stop Aspirin 7 days before surgery, as directed by your surgeon. - Stop Vitamin E, ALL multi-vitamins, herbals and dietary supplements 7 days before surgery. - You may take Tylenol (Acetaminophen) or any of your pain medications that do not contain aspirin or NSAIDS as needed. Important Reminders: - Candy, mints, and tobacco products are NOT permitted the morning of surgery. - Hearing aids, dentures and glasses may be worn the morning of surgery. - NO jewelry, body piercings, makeup, hairpins or contacts are to be worn the day of surgery. If you develop symptoms such as a fever, cold, or flu, or have other changes to your health within TWO DAYS of scheduled surgery or the morning of surgery, please contact the surgery center above. Personal Belongings: -Please have photo ID and insurance cards. -If you do not have a copy of advance directives on file with us, please bring a copy with you on the day of surgery. - Leave ALL valuables and money at home or with family members. For Outpatient Procedures: - YOU MUST HAVE A RESPONSIBLE COIL CONNECTOR TAKE YOU HOME. A ARCHITECTURAL DESIGN PROFESSOR OR AUTOCAD CANNOT BE MADE A RESPONSIBLE COIL CONNECTOR. - We recommend that a responsible person stays with you overnight to take care of you. - You cannot stay in a hotel alone after outpatient surgery. You will not be permitted to have your surgery, if you do not have someone to take care of you. Arrival Time for Surgery: - The Surgery Center or hospital where you are having surgery will call the afternoon before surgery (or Friday for Friday surgery) with a scheduled arrival time. - If you have not heard by 4 pm, please contact the surgery center above. Please be aware that emergency situations arise, which may delay or change your surgical time. If this happens, we will notify you as soon as possible and regret any inconvenience. If you already have an Advance Directive, please fax a copy to [phone] or email to for it to be added to your chart. If you do not have an Advance Directive, you can find the appropriate form and more information at [email or web address]. We recommend that you complete the Advance Directive form found on the website and bring it with you the day of your surgery. It can be witnessed and scanned into your chart that day. Cierra Chávez APRN.ARELY documented in this encounter [facility] 06-07-2023 History and physical note PREANESTHESIA CONSULT CLINIC TELEHEALTH VISIT Patient has been identified by name and date of : Yes This is a virtual visit using Animail video visit. It require patient-provider interaction for the medical decision making as documented below. Reason for contact: PACC visit Accompanied by: Self Scheduled Surgery: Right hip arthroscopy labral repair/ debridement, femoroplasty, acetabuloplasty Subjective CHIEF COMPLAINT: Patient presents with: Anesthesia Consult: Right hip pain HPI: This is a 37 year old female who presents with right hip pain . ACTIVE PROBLEM LIST H/O Cervical Spine Surgery Chronic Neck Pain Hx of Neck Surgery Radiculopathy of Cervical Region Arm Numbness Left Clenching of Teeth Myofascial Muscle Pain Centric Occlusion Maximum Intercuspation Discrepancy Arthralgia of Left Temporomandibular Joint Hyponatremia Acute Metabolic Encephalopathy Migraine Headache With Aura Water Intoxication Chronic TMJ Pain Inflammatory Arthritis Somatic Dysfunction of Rib Somatic Dysfunction of Spine, Thoracic Somatic Dysfunction of Spine, Cervical Acute Right-Sided Thoracic Back Pain Neck Pain Chronic Migraine Without Aura, With Intractable Migraine, So Stated, With Status Migrainosus Right Hip Impingement Syndrome Impaired Fasting Glucose Dyslipidemia Pcos (Polycystic Ovarian Syndrome) Pvc's (Premature Ventricular Contractions) Lichen Sclerosus Hypercholesteremia 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 PAST SURGICAL HISTORY Procedure Laterality Date CONIZATION OF CERVIX, LEEP NECK SURGERY HX 08/19/2016 Left C7 foraminotomy, Left C6-7 diskectomy - w/ benefit though continues to have pain (left side of neck, shooting pains in arm, left wrist and distal numbness) PAST SURGICAL HISTORY OF at age of 6 years left inguinal hernia repair PAST SURGICAL HISTORY OF Tonsillectomy FAMILY HISTORY Problem Relation Age of Onset Hyperlipidemia Mother baseline TC 300's, smoker Obesity Father Hyperlipidemia Father Hypertension Father Social History Tobacco Use Smoking status: Never Smokeless tobacco: Never Vaping Use Vaping Use: Never used Substance Use Topics Alcohol use: Not Currently Comment: none since 2019 Drug use: No ALLERGIES Allergen Reactions Dilaudid [Hydromorp* Itching Fentanyl Itching Sulfa (Sulfonamide * Rash MEDICATIONS: Current Outpatient Medications Medication Sig leflunomide (ARAVA) 10 mg tablet Take 1 tablet by mouth once daily. valACYclovir (VALTREX) 1 gram Take 1 tablet by mouth once daily. methocarbamol (ROBAXIN) 750 mg tablet Take 1 tablet by mouth four times daily. metoprolol succinate ER (TOPROL XL) 25 mg 24 hr tablet Take 1 tablet by mouth daily at bedtime. fremanezumab-vfrm (AJOVY AUTOINJECTOR) 225 mg/1.5 mL auto-injector Inject 4.5 mL under the skin every 3 months. Diclofenac Potassium (CAMBIA) 50 mg pwpk Take 1 Packet by mouth as needed for migraine headache. Can repeat dose in 2 hours, no more than 2 doses per day, or 2 days per week tirzepatide (MOUNJARO) 7.5 mg/0.5 mL pen injector Inject 7.5 mg subcutaneously one time a week. buPROPion SR (WELLBUTRIN SR) 150 mg 12 hr tablet Take 1 tablet by mouth twice daily. golimumab (SIMPONI) 50 mg/0.5 mL Inject 50mg ( 1 pen) subcutaneously every 4 weeks rosuvastatin (CRESTOR) 5 mg tablet Take 1 tablet by mouth once daily. Magnesium Citrate 150mg (Pure Encapsulations) Take 4 capsules daily. riboflavin, vitamin B2, (VITAMIN B-2) 100 mg tab Take 4 tablets by mouth once daily. coenzyme Q10 (COQ-10) 100 mg cap capsule Take 1 capsule by mouth twice daily. vitamin D3-folic acid 5,000 unit- 1 mg tab Take 5,000 Units by mouth once daily. multivitamin tablet Take 1 tablet by mouth once daily. No current facility-administered medications for this visit. REVIEW OF SYSTEMS: Pain Assessment: Pain Pain Level: 3 Duration Units: Months Frequency: Intermittent General: No weight loss, malaise or fevers. Neuro: Postive for Headaches/ Migraines No history of TIA's, stroke, HIGHWAY ENGINEER tumor, impaired sensorium, hemiplegia, paraplegia or quadraplegia Respiratory: No history of current cough or dyspnea, or pneumonia in the past 6 weeks. No history of respiratory/pulmonary symptoms or problems. Cardiovascular: Positive for: HLD, History of PVCs Follows with Cardiology No history of HTN requiring medication, no history of angina, CHF, [place], cardiac surgery or stents. Denies rest pain, gangrene or revascularization/amputation for PVD GI: No history of GI symptoms or problems. No history of esophageal varices, recent ascites, or ETOH greater than 2 drinks per day. 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 : Denies, Patient's last menstrual period was 02/14/2023 (exact date). Endocrine: No history of diabetes. Has not taken steroids within the past 30 days. No history of endocrinological symptoms or problems. Hematology: No history of bleeding or clotting disorder. Pt is not taking anti-coagulation or platelet medications. No history of hematological symptoms or problems. Oncology: No history of CA metastasis, chemo within 30 days, or radiotherapy within 90 days. Has not lost 10% of body wt in 6 months. No history of oncological symptoms or problems. Psych: Depression Musculoskeletal: See HPI Neck pain Inflammatory Arthritis Skin: Negative for lesions, rash and itching. Objective PHYSICAL EXAM: Pulse 80 Resp 16 Ht 5' 5 (1.65m) Wt 141 lb (64.0kg) LMP 02/14/2023 BMI 23.46 kg/(m^2). VIDEO EXAM: (if completed, performed via video enabled technology) GENERAL: alert and appropriate, in no distress, well-hydrated, well nourished, and happy, smiling, interactive SKIN: no rash noted HEAD: normocephalic, no abnormality or lesion noted EYES: no injection NOSE: external nose normal without rhinorrhea OROPHARYNX: moist mucus membranes NECK: full ROM RESPIRATORY: breathing non-labored and no grunting/flaring/retractions CHEST: equal chest rise with normal respiratory effort HEART: regular rate and rhythm verified thru radial pulse count denies any chest pain, palpitations.PVD no Cyanosis ABDOMEN: soft and non-tender NEUROLOGIC: no obvious deficit Diagnostic tests reviewed for today's visit: Lab Value Units Date High Low HB 13.6 g/dL 05/28/2023 15.5 11.5 HCT 40.4 % 05/28/2023 46.0 36.0 WBC 4.72 k/uL 05/28/2023 11.00 3.70 PLT 161 k/uL 05/28/2023 400 150 NA 137 mmol/L 05/28/2023 144 136 K 4.0 mmol/L 05/28/2023 5.1 3.7 GLUC 95 mg/dL 05/28/2023 99 74 BUN 12 mg/dL 05/28/2023 21 7 CREAT 0.76 mg/dL 05/28/2023 0.96 0.58 PTSEC No results within date range. INR No results within date range. APTT No results within date range. ALT 15 U/L 05/28/2023 38 7 AST 20 U/L 05/28/2023 35 13 TBILI 0.3 mg/dL 05/28/2023 1.3 0.2 TSH 2.250 mIU/L 01/29/2023 4.200 0.270 Lab Value Units Date High Low HCGQT No results within date range. UHCG No results within date range. HCG, BODY* No results within date range. Lab Value Units Date High Low ABORHD No results within date range. ABSCREEN No results within date range. Hemoglobin A1C (%) Date Value 10/04/2022 4.9 01/23/2021 5.2 No results found for this or any previous visit (from the past 8760 hour(s)). ECHO Collected: 07/05/2021 3:26 PM (Final result) Impression: CONCLUSIONS: - Technically difficult exam due to body habitus. - Exam indication: RUSH - The left ventricle is normal in size. Left ventricular systolic function is normal. EF = 55 5% (visual est.) Normal left ventricular diastolic function. - The right ventricle is normal in size. Right ventricular systolic function is normal. - There are no significant valvular abnormalities. - The patient has not had a prior [facility] echocardiographic exam for comparison. No new labs or tests Impression/Recommendations ASSESSMENT: PVC's (premature ventricular contractions) Denies any recent palpitations Last Echocardiogram ECHO Collected: 07/05/2021 3:26 PM (Final result) Narrative: Echocardiography Report: Transthoracic Echo [facility] Date of service: 07/05/2021 3:26:33 PM TRAWLER CAPTAIN Ordering physician: DAVID KILGORE Indication: RUSH Technologist: Donna Calloway [facility] Interpreting physician: Tommy Haynes DO PATIENT: Name: MRS. KIRA ADHIKARI : 1985 Age: 35 years Gender: F Primary rhythm: sinus. Height: 165.10 cm BSA: 1.82 m Weight: 72.58 kg BMI: 26.6 kg/m Heart rate 71 bpm Technically difficult exam due to body habitus. Color Doppler was utilized to interrogate the cardiac valves assessed and spectral Doppler was utilized to determine the flow velocities and pressure gradients reported in this exam. MEASUREMENTS: Value Indexed Normal Max aortic dimension 2.8 cm Ao < 3.8 Left atrial volume 27 ml (4ch A-L) 15 ml/m Natacha <= 34 LV ID (diastole) 4.0 cm (2D) 2.17 cm/m LV ID (systole) 2.8 cm (2D) 1.52 cm/m IVS, leaflet tips 0.9 cm (2D) Posterior wall thickness 0.9 cm (2D) Left ventricular mass 106 g (2D) 58 g/m Ejection Fraction 55 % (visual est.) EF > 54 FINDINGS: LEFT VENTRICLE The left ventricle is normal in size. Left ventricular systolic function is normal. Normal left ventricular diastolic function. Mitral annular lateral E/e': 4.8. Mitral annular septal E/e': 5.8. Wall Motion: All scored segments are normal. RIGHT VENTRICLE The right ventricle is normal in size. Right ventricular systolic function is normal. RV systolic tissue Doppler velocity is 13.0 cm/s. Tricuspid annular displacement is 2.0 cm. Estimated right ventricular systolic pressure is likely underestimated due to a weak or incomplete tricuspid regurgitation signal and is, at least, 18 mmHg plus right atrial pressure. Estimated right atrial pressure is not included as the IVC was not seen. LEFT ATRIUM The left atrial cavity is normal in size. Pulmonary Veins: The pulmonary venous pattern showed normal systolic flow. RIGHT ATRIUM The right atrial cavity is normal in size. MITRAL VALVE The mitral valve leaflets are structurally normal. There is no mitral valve regurgitation. The pressure half time is 59 msec. The peak mitral E/A ratio is 0.85. The average mitral E/e' ratio is 5.3. The mitral flow deceleration time is 203 msec. TRICUSPID VALVE The tricuspid valve leaflets are structurally normal. There is trace tricuspid valve regurgitation. AORTIC VALVE The aortic valve cusps are structurally normal. There is no aortic valve regurgitation. Tricuspid aortic valve. The peak gradient is 6 mmHg (peak velocity = 125.6 cm/s). PULMONIC VALVE The pulmonic valve was not seen or not interrogated. There is trace (trace - 1+) pulmonic valve regurgitation. AORTA The visualized aorta is normal in size. Measurements - Mid ascending aorta 2.8 cm. PULMONARY ARTERIES The pulmonary arteries are unseen or not interrogated. PERICARDIUM There is no pericardial effusion. There is an epicardial fat pad. Impression: CONCLUSIONS: - Technically difficult exam due to body habitus. - Exam indication: RUSH - The left ventricle is normal in size. Left ventricular systolic function is normal. EF = 55 5% (visual est.) Normal left ventricular diastolic function. - The right ventricle is normal in size. Right ventricular systolic function is normal. - There are no significant valvular abnormalities. - The patient has not had a prior CC echocardiographic exam for comparison. * * * Final * * * Migraine headache with aura Assessment: on Ajovy injections, Metoprolol and Robaxin Follows with Neurology Hypercholesteremia Assessment: stable on medication Inflammatory arthritis Assessment: Follows with Rheumatology On Simponi injections and Arava METS: Climb a flight of stairs or walk up a hill (5.50 METs) Participate in strenuous sport, such as swimming, singles tennis, football, basketball, or skiing (7.50 METs) Patient denies any chest pain or undue shortness of breath with the above physical activity. 5 days a week swimming, Pilates ASA Class: 3 ANESTHESIA FINDINGS: Intubation History: No history of difficult intubation Significant Anesthesia Considerations: None and Fentanyl and Dilaudid- gets very itchy states in the past Benadyl given prior has halped Airway Exam: General: Normal appearance Mallampati Score is CLASS II ULBT: Class I - Lower incisors can bite the upper lip above the danielle line Neck: Normal appearance and function, Distance from hyoid to mentum during neck extension is at least 3 finger breaths Mouth: Normal tongue size and Mouth opening greater than 2 finger breaths Dentition: Intact Airway History: No abnormal airway history STOP BANG Score: Criteria: None Score = 0 PLAN: This patient is optimally prepared for surgery. Stopped Arava 2 weeks ago Simponi 4 weeks ago CONSULTS: Patient does not require consults for optimization at this time. The Following Tests/Procedures Have Been Initiated: Labs not indicated per PACC protocol, EKG not indicated per PACC protocol Planned Anesthetic: Per anesthesia choice Instructions Given to Patient: Patient given verbal instructions and voices comprehension and compliance. Copy sent electronically via My Chart, email, or mobile device. I spent more than 0-20 minutes [id number] with the patient and over half the time was devoted to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 MCPs). - In Dec, took a steroid pack for bad migraine which caused 11 lb weight gain. About 1 week later, with 50% improvement in joint pain of the hands - In interim, has seen functional medicine. Feels like her stress is well managed with good sleep and good diet - In January, established care in [facility] rheumatology with report that pain had progressed over the prior 3 months. Also with pain in the hips and heaviness in the legs causing difficulty walking up the stairs. Had been on cymbalta for tinnitus (since May), which hadn't helped. Diagnosed with inflammatory arthritis. Advised to start HCQ (initiation delayed as she wanted to try food elimination first and then was hospitalized) - In March, admitted for hyponatremia - In May, started HCQ. - In May, reported dizziness with HCQ, with improvement of hip pain. But later in May, had to stop HCQ given unbearable daily headaches, tremors, dizziness and tinnitus. Last dose was 06/08/21 - In Jul, reported she had tremors and dizziness when off HCQ the day before. Started on MTX - In Oct, reported worsened joint pain despite MTX (initially had rash w/it which then resolved). Advised to stop MTX and start humira. Prednisone with 60% improvement - In January, reported at least 80% improvement in arthritis with humira. Strength and fatigue improved - In March, reported increased flares and hot flashes. Humira switched to enbrel - In May, reported enbrel use x7 weeks without improvement - In Jul, reported low back pain and SI/hip pain. Enbrel switched to simponi - On 07/22/22, received first simponi infusion - In Aug, reported feeling like joint pain and fatigue were better with simponi especially in the prior 3 days with 30% improvement compared to before the simponi infusion. - In Oct, reported simponi not as effective as humira. But overall felt better on simponi compared to being off it. Started on arava 10mg/day and planned to switch simponi IV to SC - Today, reports fatigue and low back pain great improved with arava 10mg/day added on. Flares have been minimal. - Getting surgery in May - Last simponi IV was on 02/13/23. 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 Lichen sclerosis PAST SURGICAL HISTORY Procedure Laterality Date CONIZATION OF CERVIX, LEEP NECK SURGERY HX 08/19/2016 Left C7 foraminotomy, Left C6-7 diskectomy - w/ benefit though continues to have pain (left side of neck, shooting pains in arm, left wrist and distal numbness) PAST SURGICAL HISTORY OF at age of 6 years left inguinal hernia repair PAST SURGICAL HISTORY OF Tonsillectomy ALLERGIES Allergen Reactions Dilaudid [Hydromorp* Itching Fentanyl Itching Sulfa (Sulfonamide * Rash MEDICATIONS: Current Outpatient Medications Medication Sig leflunomide (ARAVA) 10 mg tablet Take 1 tablet by mouth once daily. golimumab (SIMPONI) 50 mg/0.5 mL Inject 50mg ( 1 pen) subcutaneously every 4 weeks tirzepatide (MOUNJARO) 5 mg/0.5 mL pen injector Inject 5 mg subcutaneously one time a week. chlorzoxazone (PARAFON FORTE DSC) 500 mg tablet Take 0.5-1 tablets by mouth three times daily as needed. naltrexone capsule 5 mg (CPD) Take 1 capsule by mouth once daily. rosuvastatin (CRESTOR) 5 mg tablet Take 1 tablet by mouth once daily. Diclofenac Potassium (CAMBIA) 50 mg pwpk Take 1 Packet by mouth as needed for migraine headache. Can repeat dose in 2 hours, no more than 2 doses per day, or 2 days per week DULoxetine (CYMBALTA) 30 mg capsule Take 1 capsule by mouth once daily. metoprolol succinate ER (TOPROL XL) 25 mg 24 hr tablet Take 1 tablet by mouth daily at bedtime. inositol powder 2 scoops, 3 times daily with or between meals Berberine 500 (Lorena) Take 1 capsule by mouth three times daily. NAC 600mg 90 ct. (Pure Encapsulations) Take 1 capsule twice daily, between meals. Atrantil One (2) capsule per day up to 3 x's a day with food. nystatin (MYCOSTATIN, NILSTAT) 500,000 unit tab Take 2 tablets by mouth twice daily. PHEXXI 1.8-1-0.4 % gel INSERT ONE APPLICATORFUL VAGINALLY IMMEDIATELY OR UP TO ONE HOUR BEFORE EACH EPISODE OF VAGINAL INTERCOURSE fremanezumab-vfrm (AJOVY AUTOINJECTOR) 225 mg/1.5 mL auto-injector Inject 4.5 mL subcutaneously every 3 months. valACYclovir (VALTREX) 1 gram Take 1 tablet by mouth once daily. Magnesium Citrate 150mg (Pure Encapsulations) Take 4 capsules daily. riboflavin, vitamin B2, (VITAMIN B-2) 100 mg tab Take 4 tablets by mouth once daily. coenzyme Q10 (COQ-10) 100 mg cap capsule Take 1 capsule by mouth twice daily. vitamin D3-folic acid 5,000 unit- 1 mg tab Take 5,000 Units by mouth once daily. multivitamin tablet Take 1 tablet by mouth once daily. No current facility-administered medications for this visit. FAMILY HISTORY: paternal aunt- currently undergoing RA evaluation, maternal uncles x2, maternal cousin-ankylosing spondylitis SOCIAL HISTORY: Lives in [place] with spouse with 2 kids, 10 yo and 13 yo (planning to foster to adopt). On 11/15/21, got a Kourtney to foster who she is on track to adopt (also adopting the biological mother who has intellectual difficulty). 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 Tobacco use: None Alcohol use: None since Aug Drug use: None REVIEW OF SYSTEMS: reviewed 09/13 systems, as above PHYSICAL EXAM: CONSTITUTIONAL: Well-appearing, in NAD. SKIN: No rash. No alopecia. EYES: No scleral icterus or conjunctivitis NEURO: Awake, alert and oriented *January Widespread Pain Index: 17 (0-19) Symptoms Severity Scale: 8 (0-12) WPI>7 and SS Scale>5 OR WPI 3-6 and SS Scale >9 consistent with fibromyalgia LABORATORY: Component Latest Ref Rng & Units 07/03/2022 01/29/2023 WBC 3.70 - 11.00 k/uL 7.70 RBC 3.90 - 5.20 m/uL 4.12 Hemoglobin 11.5 - 15.5 g/dL 13.2 Platelet Count 150 - 400 k/uL 203 Calcium 8.5 - 10.2 mg/dL 9.6 Bilirubin, Total 0.2 - 1.3 mg/dL 0.4 Alkaline Phosphatase 34 - 123 U/L 50 AST 13 - 35 U/L 29 ALT 7 - 38 U/L 24 Glucose 74 - 99 mg/dL 88 BUN 7 - 21 mg/dL 9 Creatinine 0.58 - 0.96 mg/dL 0.69 Sodium 136 - 144 mmol/L 138 Potassium 3.7 - 5.1 mmol/L 3.7 Chloride 97 - 105 mmol/L 100 CO2 22 - 30 mmol/L 26 Anion Gap 9 - 18 mmol/L 12 eGFR >=60 mL/min/1.73m 114 Component Latest Ref Rng & Units 07/17/2022 TB Nil <=8.00 IU/mL 0.01 TB1 Ag minus Nil <0.35 IU/mL 0.05 TB2 Ag minus Nil <0.35 IU/mL 0.05 TB Result Negative Mitogen minus Nil >=0.50 IU/mL >9.99 CRP <0.9 mg/dL WSR 0 - 20 mm/hr HLA-B27 DNA Result Negative Component Latest Ref Rng & Units 11/01/2020 Sm Antibody <1.0 AI <0.2 BRUSH FILLER HAND Antibody <1.0 AI 0.2 SSA Antibody <1.0 AI <0.2 SSB Antibody <1.0 AI <0.2 Centromere Ab <1.0 AI <0.2 Scleroderma Ab, IgG <1.0 AI <0.2 Debbie 1 Antibody <1.0 AI <0.2 Ribosomal BRUSH FILLER HAND <1.0 AI <0.2 Chromatin Antibody <1.0 AI <0.2 SEA by EIA, Qual Negative Negative SEA by EIA OD Ratio 0.2 CCP Antibody, IgG <20 Units <15 Rheumatoid Factor <16 IU/mL <10 Anti-SSA <1.0 AI <0.2 Anti-SSB <1.0 AI <0.2 CRP <0.9 mg/dL 0.4 CK 42 - 196 U/L 136 Vitamin D 25 Hydroxy 31.0 - 80.0 ng/mL 34.8 Endomysial Ab, IgA <1:10 <1:10 Component Latest Ref Rng & Units 01/23/2021 Gliadin Ab, IgA <20 Units 7 Gliadin Ab, IgG <20 Units 2 Transglutaminase Ab, IgG <20 Units 3 Transglutaminase Ab, IgA <20 Units 4 Component Latest Ref Rng & Units 02/03/2020 Sm Antibody <1.0 AI <0.2 BRUSH FILLER HAND Antibody <1.0 AI 0.2 SSA Antibody <1.0 AI <0.2 SSB Antibody <1.0 AI <0.2 Centromere Ab <1.0 AI <0.2 Scleroderma Ab, IgG <1.0 AI <0.2 Debbie 1 Antibody <1.0 AI <0.2 Ribosomal BRUSH FILLER HAND <1.0 AI <0.2 Chromatin Antibody <1.0 AI <0.2 SEA Negative Negative SEA Titer Negative Negative SEA Pattern Not applicable for negative result. IgA 78 - 391 mg/dL 289 Transglutaminase Ab, IgA <20 Units 4 Interpretation (Celiac Screen) No serologic evidence of celiac disease. No serologic evidence of celiac disease. UltraSens C-Reactive Protein <3.1 mg/L 1.6 WSR 0 - 20 mm/hr 8 Rheumatoid Factor <16 IU/mL <10 STUDIES: *Jul xray SI joints- Findings concerning for right hip cam type impingement. *January xray hands/SI joints- unremarkable *Jan MRI brain- No evidence for focal acute brain ischemia, mass effect, abnormal enhancement, or mastoid/middle ear inflammatory disease. No abnormal enhancement involving lower cranial nerves. Gross brain volume and morphology is within expected limits for age. Based on the axial T2 flow void pattern, proximal intracranial arterial vasculature, major cortical draining veins, and dural venous sinuses are patent. Concordant findings on the post gadolinium scans. *Oct MRI C-spine- Postop changes. Mild left bony foraminal stenosis at C6-7. Suspicion of mild epidural scar formation in the left C7-T1 neural foramen from a prior foraminotomy. No evidence of recurrent disc protrusion. IMPRESSION and PLAN: 1. Inflammatory arthritis: With steroid-responsive wrist, MCP and PIP pain along with fatigue, synovitis of the MCPs and PIPs in the past and negative serologies. Also with steroid responsive back/SI joint pain (separate from L hip CAM pain). Sulfa allergy. Has tried: HCQ (dizziness and tremors), MTX (ineffective), Humira (lost efficacy despite initial significant improvement), and enbrel (ineffective). Simponi IV with improvement (first dose in Jul) - Switch simponi to SC, to start injections 8 weeks from last IV dose so will start on or after 04/10/23 - Continue arava 10mg/day for now. Advised we can increase the dose at the next visit if needed but would rather hold off for now to avoid making too many changes at once (switching to SC simponi and with plans for May surgery) - Check labs. Notify of results via 6APTt - Discussed perioperative management of simponi/arava, hold 2 weeks before and resume 2 weeks after assuming all is healing well without infection and okayed by surgeon 2. Migraine, chronic pain and cervical spine pain: Separate issues from the inflammatory arthritis - Continue PT, PCP, functional medicine and neurology management 3. Prior history of fibromyalgia: Current symptoms are not consistent with remote fibromyalgia presentation which resolved with cymbalta x2 years and then never recurred - Continue monitoring 4. CAM deformity/L hip pain: Mechanical issue separate from inflammatory arthritis - Continue ortho management 5. General health maintenance: - Doesn't plan on getting covid vaccine, has a adventist exemption - Advised to continue follow-up with PCP for routine health maintenance and malignancy screening Follow-up in 3 & 9 months with Wisam Chung and 12 months with me or sooner if needed. Patient was instructed to call if any questions or concerns. Thank you for allowing me to participate in the care of your patient. Ajit Torre MD documented in this encounter [facility] 03-07-2023 Miscellaneous Notes Spoke with patient on the phone. Surgical dates were discussed. Will proceed forward with right hip arthroscopy with Dr. De Leon on 05-22-23. Refer to patient update encounter for full documentation. Cristina Reis, AT, ATC Patient calling to schedule surgery documented in this encounter [facility] 02-28-2023 Miscellaneous Notes LVM with patient. Office number provided for her to call back when she is able. Cristina Reis, AT, ATC Pnt called to sched surgery documented in this encounter [facility] 02-24-2023 Miscellaneous Notes The following approved medication requests have been transmitted electronically. Requested Prescriptions Signed Prescriptions Disp Refills leflunomide (ARAVA) 10 mg tablet 90 tablet 0 Sig: Take 1 tablet by mouth once daily. Authorizing Provider: WISAM CHUNG PA-C Most recent Rheumatology visit: 11/14/2022 (with Wisam Chung) Recent Office Visits - This Specialty 11/14/2022 Inflammatory arthritis Rheumatology Wisam Chung PA-C 08/07/2022 Inflammatory arthritis Rheumatology Ajit Torre MD 07/05/2022 Encounter for long-term (current) use of medications Rheumatology Wisam Chung PA-C Upcoming Rheumatology Appointments - Next 365 Days Visit Type Date Time Department ALINE EST [facility] 03/25/2023 1:00 PM [facility] VIDEO SPEC EST 06/06/2023 9:30 AM [facility] VIDEO SPEC EST 09/09/2023 9:00 AM [facility]O CBC: None on file in the last 6 months Vitamin D: Vitamin D Latest Ref Rng & Units 11/01/2020 09/27/2022 VITAMIN D 25 HYDROXY 31.0 - 80.0 ng/mL 34.8 31.9 LFT: CMP Latest Ref Rng & Units 10/04/2022 01/29/2023 SODIUM 136 - 144 mmol/L 137 138 POTASSIUM 3.7 - 5.1 mmol/L 3.8 3.7 CHLORIDE 97 - 105 mmol/L 102 100 CO2 22 - 30 mmol/L 26 26 GLUCOSE 74 - 99 mg/dL 106(H) 88 BUN 7 - 21 mg/dL 12 9 CREATININE 0.58 - 0.96 mg/dL 0.77 0.69 CALCIUM, TOTAL 8.5 - 10.2 mg/dL 9.2 9.6 AST 13 - 35 U/L 21 29 ALT 7 - 38 U/L 19 24 ALKALINE PHOSPHATASE 34 - 123 U/L 53 50 Creatinine: Creatinine Latest Ref Rng & Units 10/04/2022 01/29/2023 CREAT 0.58 - 0.96 mg/dL 0.77 0.69 ESR/CRP: None on file in the last 6 months Uric Acid: None on file in the last 6 months Open Standing (Multiple Instance) Lab Orders None Open Future (Single Instance) Lab Orders Expected Expires Ordered COMP METABOLIC PANEL [SQCMP] 05/22/23 07/22/23 02/19/23 Auth. provider: Lani Xavier MD Assoc. diagnoses: Impaired fasting glucose, PCOS (polycystic ovarian syndrome), Dyslipidemia LIPID PANEL BASIC [SQLIPB] 05/22/23 07/22/23 02/19/23 Auth. provider: Lani Xavier MD Assoc. diagnoses: Impaired fasting glucose, PCOS (polycystic ovarian syndrome), Dyslipidemia documented in this encounter [facility] 02-24-2023 History of Present illness Narrative [facility] received prescription(s) for Simponi from Dr. Chung. Benefits investigation was conducted, indicating that a prior authorization is required by patients plan with [facility]. Encounter will be updated once prior authorization has been submitted by [facility]. Ginny Smith CPhT [facility], Inflammatory P: [phone] F: [phone] documented in this encounter [facility] 02-19-2023 Instructions Lani Xavier MD - 02/19/2023 3:42 PM EDT WEIGHT MANAGEMENT PROGRAM Thank you for seeing me in [facility]. Please schedule your follow-up appointment: -- Call Center: [phone] or [phone] Please call this number to make your follow up appointment. If you are on [facility] medications that must be filled by a certain date please notify person at the Call Center to ensure scheduled within needed timeframe. -- Dietitian: [phone] Please call this number to make your appointment. You can be seen at [address], [place] [facility] -- [facility] Our team will contact you via Animail with the next steps -- Shared medical appointment patient coordinator: [phone] Our team will contact you to schedule your shared medical appointment -- If any questions regarding your visit today please call [employer] Artist at [phone] or via Animail To Cancel an appointment, please choose one of the following: - Call the Appointment Call Center at [phone] or [phone] - From [employer], Go to Appointments - Cancel Appts FOR THE WEIGHT MANAGEMENT TEAM - instructions Use call center number to schedule follow up appointment for weight management when seeing patient virtually Instruct the patient to go to front office associate to schedule follow up appointment Alternatively send a message to [employer] to contact the patient and schedule appointment: P [employer] APPT POOL ([id number]) Shared Medical Appointment: send a message directly to Lori or Colleen to schedule SMA Thank you for choosing the [facility] Department of Endocrinology, Diabetes and Metabolism. documented in this encounter [facility] 02-19-2023 History of Present illness Narrative Endocrinology Virtual Visit Note that this is a f/u visit. I have communicated my name and active licensure. The patient's identity and physical location were verified at the time of this visit. Either the patient or their legal care support representative has been informed of the risks and benefits of -- and alternatives to -- treatment through a remote evaluation and consents to proceed with the evaluation remotely. Kira Adhikari is a 37 year old year old female seen for medical weight management.Reported (Ht-5'5,Wt-185>>182>>162 lbs (-23 lbs);BMI-27). Note the patient states that she has been on Adipex in the past but was not able to get good weight loss with it. Patient states that she did not have any adverse effects on the Adipex including chest pain or palpitations. Patient states that her eating style is neither grazing or binging but her cravings are mainly for sweets. Note that patient states that she has also been on Topamax in the past without good weight loss.Patient states that her also had a vasectomy. Patient currently denies a history of OH,problems with heart valves,arrhythmias.She also denies being on any opioid based pain medications,denies a history of seizure d/o or been diagnosed with any eating disorders (including anorexia or bulimia).Patient also denies being diagnosed with any psych d/o and denies being on any psych meds but is noted to be on cymbalta which the patient states is for tinnitus. Patient also denies a personal or family history of medullary thyroid cancer/MEN syndrome or personal history of pancreatitis. Patient also denies any history of blood clotting disorders. At last visit,the patient was increased on Mounjaro and the patient is currently on the following: Current regimen Mounjaro 5mg/wk () Patient states that she is doing well on the current regimen with no adverse effects including N/V/D.Patient states that she is continuing her diet and exercise training as well.Patient also states that she is tolerating her statin well with no adverse effects. Currently denies any other endocrine related complaints. 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 PAST SURGICAL HISTORY Procedure Laterality Date CONIZATION OF CERVIX, LEEP NECK SURGERY HX 08/19/2016 Left C7 foraminotomy, Left C6-7 diskectomy - w/ benefit though continues to have pain (left side of neck, shooting pains in arm, left wrist and distal numbness) PAST SURGICAL HISTORY OF at age of 6 years left inguinal hernia repair PAST SURGICAL HISTORY OF Tonsillectomy FAMILY HISTORY Problem Relation Age of Onset Hyperlipidemia Mother baseline TC 300's, smoker Obesity Father Hyperlipidemia Father Hypertension Father Social History Tobacco Use Smoking status: Never Smokeless tobacco: Never Vaping Use Vaping Use: Never used Substance Use Topics Alcohol use: Not Currently Comment: none since 2019 Drug use: No Past medical history: Dyslipidemia, PCOS, migraines, arthritis, impaired fasting glucose Past surgical history: Tonsillectomy, LEEP procedure, C6/C7 discectomy Social history: Denies smoking cigarettes, denies drinking alcohol, denies recreational drugs; 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 Please dispense Smartject-Auto Injector chlorzoxazone (PARAFON FORTE DSC) 500 mg tablet Take 0.5-1 tablets by mouth three times daily as needed. MOUNJARO 5 mg/0.5 mL pen injector INJECT 5 MG SUBCUTANEOUSLY WEEKLY naltrexone capsule 5 mg (CPD) Take 1 capsule by mouth once daily. leflunomide (ARAVA) 10 mg tablet Take 1 tablet by mouth once daily. rosuvastatin (CRESTOR) 5 mg tablet Take 1 tablet by mouth once daily. Diclofenac Potassium (CAMBIA) 50 mg pwpk Take 1 Packet by mouth as needed for migraine headache. Can repeat dose in 2 hours, no more than 2 doses per day, or 2 days per week DULoxetine (CYMBALTA) 30 mg capsule Take 1 capsule by mouth once daily. metoprolol succinate ER (TOPROL XL) 25 mg 24 hr tablet Take 1 tablet by mouth daily at bedtime. inositol powder 2 scoops, 3 times daily with or between meals Berberine 500 (Lorena) Take 1 capsule by mouth three times daily. NAC 600mg 90 ct[address] (Pure Encapsulations) Take 1 capsule twice daily, between meals. Atrantil One (2) capsule per day up to 3 x's a day with food. nystatin (MYCOSTATIN, NILSTAT) 500,000 unit tab Take 2 tablets by mouth twice daily. PHEXXI 1.8-1-0.4 % gel INSERT ONE APPLICATORFUL VAGINALLY IMMEDIATELY OR UP TO ONE HOUR BEFORE EACH EPISODE OF VAGINAL INTERCOURSE fremanezumab-vfrm (AJOVY AUTOINJECTOR) 225 mg/1.5 mL auto-injector Inject 4.5 mL subcutaneously every 3 months. valACYclovir (VALTREX) 1 gram Take 1 tablet by mouth once daily. Magnesium Citrate 150mg (Pure Encapsulations) Take 4 capsules daily. riboflavin, vitamin B2, (VITAMIN B-2) 100 mg tab Take 4 tablets by mouth once daily. coenzyme Q10 (COQ-10) 100 mg cap capsule Take 1 capsule by mouth twice daily. vitamin D3-folic acid 5,000 unit- 1 mg tab Take 5,000 Units by mouth once daily. multivitamin tablet Take 1 tablet by mouth once daily. No current facility-administered medications for this visit. ALLERGIES Allergen Reactions Dilaudid [Hydromorp* Itching Fentanyl Itching Sulfa (Sulfonamide * Rash REVIEW OF SYSTEM: Review of Systems: A 14 point review of systems negative except as above in the HPI PHYSICAL EXAMINATION: VIDEO EXAM: (if completed, performed via video enabled technology) Physical Exam Constitutional: Appearance: Normal appearance. She is obese. HENT: Head: Normocephalic and atraumatic. Nose: Nose normal. Mouth/Throat: Mouth: Mucous membranes are moist. Eyes: Conjunctiva/sclera: Conjunctivae normal. Neck: Comments: No thyromegaly noted on visual exam Pulmonary: Effort: Pulmonary effort is normal. Neurological: Mental Status: She is alert and oriented to person, place, and time. Psychiatric: Mood and Affect: Mood normal. Judgment: Judgment normal. Comments: patient states that mood is good and denies any suicidal or homicidal ideations ASSESSMENT & PLAN: Overweight with Impaired fasting glucose and PCOS:Patient has a BMI of Overweight= 25-29.9 with multiple comorbidities DLP and Reduced Quality of Life which can be helped by weight loss. With this BMI, the patient also qualifies for Bariatric Medications intervention.Educated the patient well today on diet and exercise and referred the patient to the nutrition clinic and exercise physiology at a previous visit.In terms of weight loss medications,the patient will likely do best with a GLP-1 as the patient also has impaired fasting glucose (with her PCOS).Note that the patient's insurance would not cover Wegovy so patient was switched to Mounjaro.Patient is doing well on the current regimen with no adverse effects so will continue Mounjaro 5 mg/wk.Goal weight loss in this patient in 3 months is 9 lbs (patient has gone beyond this goal).Goal weight in this patient is 150 lbs.Note that weight loss should also help with the patient's PCOS. Dyslipidemia: Note that the patient has a history of DLP being managed with a statin.Last LDL and LFTs are within normal limits.Continue current regimen. I spent a total of 35 minutes on the date of the service which included preparing to see the patient, [id number] patient care, completing clinical documentation, obtaining and/or reviewing separately obtained history, performing a medically appropriate examination, counseling and educating the patient/family/caregiver, and ordering medications, tests, or procedures Patient has been counselled regarding followin. diagnostic considerations and management plan along with associated risks and benefits 2. dietary modifications, regular exercise and wt loss 3. medications and their common and serious side effects along with initial management 4. warning signs/symptoms and to call in if experiencing them, f/u, implications of non adherence 5.female patients were also well educated to call in and inform if she is or gets so medications can be adjusted as appropriate Pt has voiced clear understanding and agreement of the above. Return to clinic:3 months with labs (CMP,FLP) Dr Xavier documented in this encounter [facility] 02-19-2023 History of Present illness Narrative Episode Visit Count: 1 Therapist That Will Accept/Oversee The Plan Of Care: Beatriz Melissa Start of Care Date: 02/19/23 Onset Date: 01/22/23 Patient Identified by Name and Date of : Yes REHABILITATION AND SPORTS THERAPY PHYSICAL THERAPY EVALUATION PLAN OF CARE: Assessment: Kira Adhikari presents with chief complaint of R hip pain and neck pain/headaches that interferes with standing, walking, heavy exertion, lifting, physical activities, recreational activities, squatting . She presents with impairments in ADL's, overall function, range of motion, symptom management, and tissue tenderness. PROMIS (Patient-Reported Outcomes Measurement Information System) scores were reviewed and physical function domain identified as a rehabilitation concern. Prognosis for therapy is Good due to: current objective clinical presentation, good overall health status, positive past response to therapy, within-session changes, good support system/ coping skills . She will benefit from skilled therapy services to meet the goals established for this plan of care as noted below. Goals for Episode of Care: created on 02/19/23 through 05/22/23 Independent in a Home Exercise Program. Patient will decrease pain rating by 2 points to meet minimal clinical important difference for numeric pain rating scale. Restore pain free cervical ROM to WNL to allow for improved functional mobility. Sleep throughout the night without pain/symptoms. Patient will increase strength of R hip to 4+/5 to allow for improve mechanics and decrease pain. Patient will demonstrate a 50% reduction in cervical muscle tenderness to palpate Planned Interventions, Frequency, and Duration: Current Frequency: 1x/week Duration: 12 weeks Total Number of Visits Planned: 12 Planned Treatment Interventions: Therapeutic exercise (51538), Neuromuscular re-education (77686), Manual therapy (15839), Therapeutic activities (29145), Self-detention management (02205), Patient/Family/Caregiver Education, Body Mechanics Training PLAN FOR NEXT VISIT: Continue manual for neck, will progress strengthening for hip as symptoms allow Patient demonstrates good understanding of plan of care and treatment. The above goals and plan of care were discussed and agreed upon by patient/family. SUBJECTIVE: Kira Adhikari is a 37 year old female seen today for Pt returns for R hip pain and B neck pain with headaches. R>L neck pain with some shooting pain into the top of the shoulder blade. R hip ended up having a torn labrum, and she will be undergoing surgery in May for this. Functional Limitations: standing, walking, heavy exertion, lifting, physical activities, recreational activities, squatting Prior Level of Function: Independent without limitations Intake Information: Prescription present Pain: Pain Pain Level: 8 Pain Location: Neck Description: Aching, Sore, Shooting Frequency: Continuous Additional Pain Information : Location 2 Pain Level 2: 5 Pain Location 2: Hip - Right Description 2: Sharp Frequency 2: Intermittent PROMIS Scales Higher is Better 01/29/2023 11/14/2022 09/05/2022 Phys Func - Score 41 (mild dysfunction) 41 (mild dysfunction) - Phys Func - Percentile 18 % 18 % - Self-Eff Symptom - Score - - 37 (Low) Self-Eff Symptom - Percentile - - 10 % T-scores: mean of general population = 50. 5 points is clinically meaningfully difference Percentiles provide an indication of how the patient's score ranks in relation to the general population. Higher percentile rankings indicate better function/quality of life. 50th percentile is the average of the general population and indicates half of respondents had a worse score. OBJECTIVE MEASURES WITH LEVEL OF FUNCTION: Spine Observations R Cervical Spine Palpation Tenderness: Paraspinals, Upper trapezius, Suboccipitals L Cervical Spine Palpation Tenderness: Paraspinals, Upper trapezius, Suboccipitals Cervical Spine ROM Cervical ROM : Limitation AROM Cervical Flexion AROM: Minimal limitation Cervical Extension AROM: Moderate limitation Cervical Side-Bend Right AROM: Moderate limitation Cervical Side-Bend Left AROM: Moderate limitation Cervical Rotation Right AROM: Minimal limitation Cervical Rotation Left AROM: Minimal limitation LE AROM R LE AROM: R hip moderate limitations in all motions due to pain LE Strength R LE Strength: 3+/5 grossly hip L LE Strength: 4+/5 grossly all Education: Education Learning/educational needs: Home exercise program, Plan of Care, Changes in Plan of Care, Body Mechanics TREATMENT: PT Treatment Interventions: Therapeutic Exercise, Manual Therapy Evaluation Therapeutic Exercise: 1: *SL hip abduction 3x10 2: *Clamshells 3x10 GTB 3: *Side stepping with band reisstance 3x fatigue each way 4: *Step ups onto 6-8 in step 3x10 5: *Prone hip extension 3x10 Skilled Intervention: Patient was educated in proper exercise technique and purpose for exercises. Skilled judgment was provided in selection of appropriate interventions. Provided written instruction for home exercise program to facilitate proper performance and compliance. Correct performance of therapeutic exercises was facilitated with verbal, visual, and tactile cuing. Manual Therapy: 1: Manual cervical traction x5 min Dry Needling: (1) 30 mm needle to B C3 and C6 paraspinals with placement of needle and TENS; 150 Hz, leads 1 and 2 2.5-3.0 V, leads 3 and 4 3.0-3.5 V x15 min Skilled Intervention: Manual skills to improve joint mobility, ROM, and decrease pain. Utilized anatomy knowledge of the therapist, and assessment of patient's response to intervention. Billing * Evaluation Low Complexity: 1 Unit Therapeutic Exercise Treatment Minutes: 10 Manual TherapyTreatment Minutes: 20 Total Treatment Time Minutes (timed/untimed): 50 Beatriz Melissa PT documented in this encounter [facility] 02-07-[address] Cheng reviewed images and recommends T8-9 TESI Injection order placed Waiting for patient to pick a date. documented in this encounter [facility] 01-23-2023 Miscellaneous Notes Called and spoke with patient. She would like to discuss getting repeat injections for cervical spine (has been seen for this before) and discuss injections for thoracic spine (new kind of pain). Since Dr. Cheng is booking a ways out for injections, patient has scheduled video visit to discuss pain/injection for cervical spine only with Adele Gibson on 01/30/2023. Patient is then scheduled with Dr. Cheng on 02/28/2023 to discuss new thoracic spine pain and possible injections for that at a later date. Amparo Zamudio Patient left voicemail 01/23/2023 at 1208 Patient calling to make in person appointment with Dr. Cheng. Last office visit with Dr. Cheng was 12/26/2021 Will forward to clerical team to assist follow up with Dr. Cheng to discuss plan of care documented in this encounter [facility] 01-09-2023 History of Present illness Narrative Images from the original note were not included. [facility] Virtual Visit Follow up Encounter Last Visit: 3 months ago Primary Problem List: ACTIVE PROBLEM LIST H/O Cervical Spine Surgery Chronic Neck Pain Hx of Neck Surgery Radiculopathy of Cervical Region Arm Numbness Left Clenching of Teeth Myofascial Muscle Pain Centric Occlusion Maximum Intercuspation Discrepancy Arthralgia of Left Temporomandibular Joint Hyponatremia Acute Metabolic Encephalopathy Migraine Headache With Aura Water Intoxication Chronic TMJ Pain Inflammatory Arthritis Somatic Dysfunction of Rib Somatic Dysfunction of Spine, Thoracic Somatic Dysfunction of Spine, Cervical Acute Right-Sided Thoracic Back Pain Neck Pain Chronic Migraine Without Aura, With Intractable Migraine, So Stated, With Status Migrainosus Right Hip Impingement Syndrome Bmi 30.0-30.9,Adult Impaired Fasting Blood Sugar Dyslipidemia Pcos (Polycystic Ovarian Syndrome) Obesity, Class I, Bmi 30-34.9 Interval Headache Hx: Pain today:0 Questions or concerns to address today: Feels well in terms of headaches TMD is still an issue though with tmd, orthodox, occipital and upper cervical spine Methocarbamol was effective but loss of efficacy # of headache days/month <10 and only 2 were moderate to severe # of headache free days/ month >20 Current Preventive:ajovy and metoprolol Current Abortive:cambia powder Frequency of Abortives:<10 Medications effective yes Risk Factors for chronification:none New Health Issues: none Red Flags:none Prior Therapies Duration of Use Dose Reason for Discontinuation Other Therapies Nerve blocks Physical therapy Analgesic Diclofenac (Voltaren, Cataflam, Cambia) Indomethacin (Indocin) no benefit Ketorolac (Toradol) no benefit Anti-Convulsant Topiramate (Topamax, Trokendi XL, Qudexy) no benefit Anti-Depressant and Antipsychotic Duloxetine (Cymbalta) Nortriptyline (Pamelor, Aventyl) Antiemetics zofran Anti-Migraine Rizatriptan (Maxalt) ineffective Sumatriptan (Imitrex, Sumavel) ineffective Blood Pressure Propranolol (Inderal) initial benefit MABs Erenumab (Aimovig) Fremanezumab (Ajovy) GEPANTS Rimegepant (Nurtec) no benefit Botulinum Toxin Onabotulimum Toxin A (Botox), Onabotulinum Toxin A (Botox) 6 years loss of efficacy Muscle Relaxer Baclofen (Lioresal) ineffective Cyclobenzaprine (Flexeril) ineffective Supplements CoQ10 Magnesium Riboflavin 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 leflunomide (ARAVA) 10 mg tablet Take 1 tablet by mouth once daily. rosuvastatin (CRESTOR) 5 mg tablet Take 1 tablet by mouth once daily. Diclofenac Potassium (CAMBIA) 50 mg pwpk Take 1 Packet by mouth as needed for migraine headache. Can repeat dose in 2 hours, no more than 2 doses per day, or 2 days per week DULoxetine (CYMBALTA) 30 mg capsule Take 1 capsule by mouth once daily. metoprolol succinate ER (TOPROL XL) 25 mg 24 hr tablet Take 1 tablet by mouth daily at bedtime. methocarbamol (ROBAXIN) 750 mg tablet Take 1 tablet by mouth four times daily. inositol powder 2 scoops, 3 times daily with or between meals Berberine 500 (Lorena) Take 1 capsule by mouth three times daily. NAC 600mg 90 ct[address] (Pure Encapsulations) Take 1 capsule twice daily, between meals. Atrantil One (2) capsule per day up to 3 x's a day with food. nystatin (MYCOSTATIN, NILSTAT) 500,000 unit tab Take 2 tablets by mouth twice daily. PHEXXI 1.8-1-0.4 % gel INSERT ONE APPLICATORFUL VAGINALLY IMMEDIATELY OR UP TO ONE HOUR BEFORE EACH EPISODE OF VAGINAL INTERCOURSE lasmiditan (REYVOW) 100 mg tablet Take 1 tablet by mouth once daily as needed fremanezumab-vfrm (AJOVY AUTOINJECTOR) 225 mg/1.5 mL auto-injector Inject 4.5 mL subcutaneously every 3 months. valACYclovir (VALTREX) 1 gram Take 1 tablet by mouth once daily. Magnesium Citrate 150mg (Pure Encapsulations) Take 4 capsules daily. riboflavin, vitamin B2, (VITAMIN B-2) 100 mg tab Take 4 tablets by mouth once daily. coenzyme Q10 (COQ-10) 100 mg cap capsule Take 1 capsule by mouth twice daily. vitamin D3-folic acid 5,000 unit- 1 mg tab Take 5,000 Units by mouth once daily. multivitamin tablet Take 1 tablet by mouth once daily. No current facility-administered medications for this visit. ALLERGIES Allergen Reactions Dilaudid [Hydromorp* Itching Fentanyl Itching Sulfa (Sulfonamide * Rash REVIEW OF SYSTEMS: Review of system : unchanged from the previous visit (sleep patterns, mood, energy, appetite, stress, exercising). HEADACHE SCORES: Headache Questions 07/18/2022 10/01/2022 01/09/2023 ER visits since last office visit: 0 0 0 Hospital stays since last office visit 0 0 0 Limited ADLs in the last month: 20 10 3 Days missed from work or school in the last month: 0 0 0 Days headache pain free in the last month: 0 20 20 Days per month with ALL of the following symptoms - decreased productivity, light sensitivity and nausea: 10 5 1 Initial improvement of headache after botox injection at last visit: Not applicable, I did not have a botox injection at my last visit Not applicable, I did not have a botox injection at my last visit Not applicable, I did not have a botox injection at my last visit Days per month with mild/moderate face pain: - - - Days per month with severe face pain: - - - Days per month free from face pain: - - - PRN medication usage in the last month: 10 7 10 Patient impression of improvement since last visit: No change Much improved Much improved HIT-6 07/18/2022 10/01/2022 01/09/2023 HIT-6 - - - HIT-6 67 (Severe impact) 64 (Severe impact) 48 (Little or no impact) LETICIA - 2/7 SCORES 07/18/2022 10/01/2022 01/09/2023 LETICIA-2 Score 0 0 0 LETICIA-7 Score - - - Pain Disability Index 03/29/2021 05/22/2021 PDI Score 45 22 Migraine Specific QOL - Higher scores indicate better HRQL 07/18/2022 10/01/2022 01/09/2023 Role Function-Restrictive Transformed Score (range: 0-100) 40 60 80 Role Function-Preventive Transformed Score (range: 0-100) 50 70 80 Emotional Function Transformed Score (range: 0-100) 33.33 60 80 PHQ-9 07/18/2022 10/01/2022 01/09/2023 Score 7 6 0 PHYSICAL EXAM: Modified for virtual platform GEN: Alert. NAD. Normal affect. Cooperative. RESP: Breathing at normal rate/ does not appear to have respiratory distress with speaking NEUROLOGICAL: MENTAL STATUS: A+O x 3. Attentive. Thought process and content unremarkable. Follows commands appropriately. Speech fluent. Pain behaviours:none CN: III, IV, : EOMI. No ptosis present. VII: Face symmetric. VIII: Hearing grossly intact Impression: Chronic migraine reverted to EM with ajovy and metoprolol TMD is still an issue Comorbid disorders: TMD Inflammatory arthritis PCOS Plan: Continue present prophylactic and rescue medication trial of chlorzoxazone I spent a total of 25 minutes on the date of the service which included preparing to see the patient, [id number] patient care, completing clinical documentation, obtaining and/or reviewing separately obtained history, performing a medically appropriate examination, counseling and educating the patient/family/caregiver, and ordering medications, tests, or procedures. Sue Concepcion MD This document has been created with the use of voice recognition technology. It may contain inaccuracy, misspelling, inaccurate syntax or word sense. Answers submitted by the patient for this visit: Headache Questionnaire (Submitted on 01/09/2023) How many days of work or school have you missed due to headaches in the last month? : 0 In the last month, how many headache days did you experience ALL of the following symptoms: decreased productivity, light sensitivity and nausea?: 1 How many days have you been completely free of headache pain in the last month? : 20 documented in this encounter [facility] 01-08-2023 Miscellaneous Notes Called patient to do the pre screening for her appt tomorrow. No answer. LMTCB Please transfer call to me when patient calls back. Thanks documented in this encounter [facility] 12-19-2022 Miscellaneous Notes Scheduled 4 week follow up with Samm barreto RD at [facility] documented in this encounter [facility] 12-19-2022 History of Present illness Narrative [facility] Medical Nutrition Therapy Visit Type: Virtual: I have discussed the nature of this visit with the patient which will occur via [facility] (Phone, Virtual Visit) and she agrees to proceed with this interaction. 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 No secondary to hip and neck problems, hip surgery in May Symptoms: Patient's symptoms are as follows: Weight Concerns: weight gain How many hours of sleep on average? Did not report Diet History: Breakfast: Yared seed Pudding with protein powder or protein shake Lunch: Lentil Soup or salad with chicken Snack:Banana and cheese stick Dinner: Monegasque lasagna Fluids water, diet pop, black coffee ETOH No Dining/eating out? Once a week Patient / Provider Comments: -Mounjaro prescribed on 11/26/2022, 3rd 5mg injection c/o nausea with this injection -gained 40 lbs over the past 1 1/2 years with PCOS and steroids for arthritis -followed with functional medicine for weight loss, elimination diet (added everything back in but gluten) -met with housecalls nurse, working on upper body exercises Medications: Current Outpatient Medications Medication Sig MOUNJARO 5 mg/0.5 mL pen injector INJECT 5 MG SUBCUTANEOUSLY WEEKLY naltrexone capsule 5 mg (CPD) Take 1 capsule by mouth once daily. leflunomide (ARAVA) 10 mg tablet Take 1 tablet by mouth once daily. rosuvastatin (CRESTOR) 5 mg tablet Take 1 tablet by mouth once daily. Diclofenac Potassium (CAMBIA) 50 mg pwpk Take 1 Packet by mouth as needed for migraine headache. Can repeat dose in 2 hours, no more than 2 doses per day, or 2 days per week DULoxetine (CYMBALTA) 30 mg capsule Take 1 capsule by mouth once daily. metoprolol succinate ER (TOPROL XL) 25 mg 24 hr tablet Take 1 tablet by mouth daily at bedtime. methocarbamol (ROBAXIN) 750 mg tablet Take 1 tablet by mouth four times daily. inositol powder 2 scoops, 3 times daily with or between meals Berberine 500 (Lorena) Take 1 capsule by mouth three times daily. NAC 600mg 90 ct[address] (Pure Encapsulations) Take 1 capsule twice daily, between meals. Atrantil One (2) capsule per day up to 3 x's a day with food. nystatin (MYCOSTATIN, NILSTAT) 500,000 unit tab Take 2 tablets by mouth twice daily. PHEXXI 1.8-1-0.4 % gel INSERT ONE APPLICATORFUL VAGINALLY IMMEDIATELY OR UP TO ONE HOUR BEFORE EACH EPISODE OF VAGINAL INTERCOURSE lasmiditan (REYVOW) 100 mg tablet Take 1 tablet by mouth once daily as needed fremanezumab-vfrm (AJOVY AUTOINJECTOR) 225 mg/1.5 mL auto-injector Inject 4.5 mL subcutaneously every 3 months. valACYclovir (VALTREX) 1 gram Take 1 tablet by mouth once daily. ondansetron (ZOFRAN) 4 mg tablet Take 1 tablet by mouth every 8 hours as needed for nausea/vomiting. Magnesium Citrate 150mg (Pure Encapsulations) Take 4 capsules daily. riboflavin, vitamin B2, (VITAMIN B-2) 100 mg tab Take 4 tablets by mouth once daily. coenzyme Q10 (COQ-10) 100 mg cap capsule Take 1 capsule by mouth twice daily. vitamin D3-folic acid 5,000 unit- 1 mg tab Take 5,000 Units by mouth once daily. multivitamin tablet Take 1 tablet by mouth once daily. No current facility-administered medications for this visit. Labs: Glucose (mg/dL) Date Value 10/04/2022 106 12/27/2021 71 Potassium (mmol/L) Date Value 10/04/2022 3.8 12/27/2021 3.9 Sodium (mmol/L) Date Value 10/04/2022 137 12/27/2021 137 Chloride (mmol/L) Date Value 10/04/2022 102 12/27/2021 104 CO2 (mmol/L) Date Value 10/04/2022 26 12/27/2021 20 Creatinine (mg/dL) Date Value 10/04/2022 0.77 12/27/2021 0.69 BUN (mg/dL) Date Value 10/04/2022 12 12/27/2021 11 Anion Gap (mmol/L) Date Value 10/04/2022 9 12/27/2021 13 Calcium (mg/dL) Date Value 12/27/2021 9.6 Calcium, Total (mg/dL) Date Value 10/04/2022 9.2 Lab Results Component Value Date HBA1C 4.9 10/04/2022 HBA1C 5.2 01/23/2021 Cholesterol, Total Date Value Ref Range Status 10/04/2022 274 (H) <200 mg/dL Final Comment: <200 mg/dL, Desirable 200-239 mg/dL, Borderline high >239 mg/dL, High HDL Cholesterol Date Value Ref Range Status 10/04/2022 52 >39 mg/dL Final Comment: 40-59 mg/dL, Acceptable >59 mg/dL, High: Negative risk factor for coronary heart disease <40 mg/dL, Low: Positive risk factor for coronary heart disease LDL Cholesterol Date Value Ref Range Status 10/04/2022 195 (H) <100 mg/dL Final Comment: <100 mg/dL, Optimal 100-129 mg/dL, Near optimal/above optimal 130-159 mg/dL, Borderline high 160-189 mg/dL, High >189 mg/dL, Very high Secondary prevention optimal LDL Cholesterol levels are recommended to be < 70 mg/dL Triglyceride Date Value Ref Range Status 10/04/2022 133 <150 mg/dL Final Comment: <150 mg/dL, Normal 150-199 mg/dL, Borderline high 200-499 mg/dL, High >499 mg/dL, Very high ANTHROPOMETRICS Height: Last 1 Encounter Ht Readings: Date: Ht: 08/07/2022 165.1 cm (5' 5) Current weight: Last 3 Encounter Wt Readings: Date: Wt: 12/19/2021 Stated Weight 78.6 kg (173 lbs) 08/07/2022 83 kg (183 lb) 06/13/2022 78.9 kg (174 lb) 05/07/2022 82.6 kg (182 lb) BMI: 28.8 kg/m2 5% -10% Weight loss: Last Weight 12/19/2021 Stated Weight 78.6 kg (173 lbs) 5% weight loss = 164 lbs 10% weight loss = 155 lbs READINESS TO LEARN Cognitive ability: Alert and oriented Motivation to learn: Eager Family support: Unable to assess - Family not present Instruction provided to: Patient Patient learns best by: Multiple Methods Factors affecting learning: None Physical limitations affecting learning: None Stage of Change: Preparation Nutrition Diagnosis: Food and nutrition related knowledge deficit, related to; lack of prior exposure to information , as evidenced by verbalizes incomplete information Calories Needed for Current Weight: RMR can't be calculated - Weight unrecorded in last 120 days. Calories for Weight Loss: 2816-0100 Nutrition Intervention: -- emphasized choosing plant foods often (vegetables, nuts/seeds, olives/olive oil, fruit, whole/ancient grains) --including protein sources at meal (fish or lean meats, beans/lentils/nuts/seeds/yogurt) -- choosing less fried food/processed food when ready/able --alternatives to sugary beverages --plate method for portioning meals/food groups without tracking calories/fat/carbs/pro --using meal replacements or pre-made balanced snacks as needed to avoid skipping meals --how to put together balanced quick meals without cooking if needed --food journaling for accountability as an option Eating Attitude: --Discussed all or nothing thoughts and how this can affect eating behaviors --Avoiding feelings of suffering related to their meal plan/food choices --Encouraged patient to the enjoy foods they choose to eat --Avoiding using judgemental language - this food is good/bad - I was good/bad, etc. Food Acceptance Skills/Food Variety: --Encouraged patient to try new foods as able --Offered recipes for increasing food variety, minimizing meal plan boredom --Endorsed pts' own food traditions and preferences --Helped identify the nutritional value of pts' preferred food Awareness of Internal Regulation of Hunger: --Stressed capabilities with internal regulation of food intake to support energy balance --Eating regular meals/snacks every 3-5 hours for internal regulation and avoiding the dieting mentality for buttermaker behavior change --Discussed tactics for getting enough to eat --Reviewed hunger/fullness scale Goal Setting: See goal section Nutrition Monitoring & Evaluation: Dietitian Goals: Weight Reduction of 5-10% within 6 months Criteria: Weight Patient Stated Goals at today's visit: -track meals using an Rosa, 9163-6879 calories, 40% CHO, 25% PRO. 35% FAT Adherence Potential to Goals: Good Need for Follow up: 4 weeks Referred by: Lani Xavier MD Carolyn Garvey, RD Consult Billing Type/Increments: Initial Assessment/15 minutes, 2 increment(s), 30 minutes Start time: 09:00 End time: 09:30 My final report will be communicated back to the requesting physician by way of shared medical record. Signed by: Shirley Barreto RD documented in this encounter [facility] 11-28-2022 Miscellaneous Notes Left voicemail for the patient that their 11/28/22 appointment with Shirley Barreto needs to be cancelled and rescheduled. Also sent msg. Elissa Locke F20 documented in this encounter [facility] 11-26-2022 Miscellaneous Notes PA sent via Fax today. Awaiting response. documented in this encounter [facility] 11-26-2022 Miscellaneous Notes WEIGHT GOAL ??? lbs 2 BMI Points Last 3 Encounter BP Readings: Date: BP: 10/15/2022 112/57 08/20/2022 108/68 08/07/2022 108/74 Last 3 LDL readings: LDL Cholesterol (mg/dL) Date Value 10/04/2022 195 07/03/2022 226 01/23/2021 179 02/03/2020 178 No results found for: LDLCHOLDIR Hemoglobin A1C (%) Date Value 10/04/2022 4.9 01/23/2021 5.2 MEDICATIONS PER RX DATABASE ROSUVASTATIN Adherent with medication refills YES Date Verified 11/26/22 Is member submitting receipts for Reimbursement NO Is member eligible for medication reimbursement No Is Employee Health Plan primary Yes 3 personal identifiers!!! This call may be recorded for quality purposes. Best time to reach you - How do you feel you have been managing your healthy choice program(s)? How long have you had this condition? How confident are you in your ability to control this condition? What types of foods are you eat? What types of foods are you avoiding?? Exercise / Fitness Tracker - Meds / OTC - Aware of side effects? Next MD appt Labs - Sleep Goals to work on between now and next call Stress / Depression - documented in this encounter [facility] 11-21-2022 Instructions Lani Xavier MD - 11/21/2022 2:39 PM EST WEIGHT MANAGEMENT PROGRAM Thank you for seeing me in [facility]. Please schedule your follow-up appointment: -- Call Center: [phone] or [phone] Please call this number to make your follow up appointment. If you are on [facility] medications that must be filled by a certain date please notify person at the Call Center to ensure scheduled within needed timeframe. -- Dietitian: [phone] Please call this number to make your appointment. You can be seen at [address], [place] [facility] -- [facility] [employer] Our team will contact you via Anim[employer] with the next steps -- Shared medical appointment patient coordinator: [phone] Our team will contact you to schedule your shared medical appointment -- If any questions regarding your visit today please call Alia Computer Artist at [phone] or via [employer] To Cancel an appointment, please choose one of the following: - Call the Appointment Call Center at [phone] or [phone] - From An[employer], Go to Appointments - Cancel Appts FOR THE WEIGHT MANAGEMENT TEAM - instructions Use call center number to schedule follow up appointment for weight management when seeing patient virtually Instruct the patient to go to front office associate to schedule follow up appointment Alternatively send a message to Codementor to contact the patient and schedule appointment: P [employer] ([id number]) Shared Medical Appointment: send a message directly to Lori or Colleen to schedule SMA Thank you for choosing the [facility] Department of Endocrinology, Diabetes and Metabolism. -Recommended Exercise goals to patient are Moderate Aerobic Exercise 150 min/wk or Vigorous Aerobic Exercise 75 min/wk for weight loss maintenance and Moderate Aerobic Exercise 300 min/wk or Vigorous Aerobic Exercise 150 min/wk and add resistance exercise x2-3/week for increased weight loss. documented in this encounter [facility] 11-21-2022 History of Present illness Narrative Endocrinology Virtual Visit Note that this is a f/u visit. This is a virtual visit using Animail video visit. It required patient-provider interaction for the medical decision making as documented below. Kira Adhikari is a 37 year old year old female seen for medical weight management.Reported (Ht-5'5,Wt-185>>182 lbs;BMI-30.4). Briefly, patient states that her exercise is currently limited with injuries. Note the patient states that she has been on Adipex in the past but was not able to get good weight loss with it. Patient states that she did not have any adverse effects on the Adipex including chest pain or palpitations. Patient states that her eating style is neither grazing or binging but her cravings are mainly for sweets. Note that patient states that she has also been on Topamax in the past without good weight loss.Patient states that her also had a vasectomy. Patient currently denies a history of OH,problems with heart valves,arrhythmias.She also denies being on any opioid based pain medications,denies a history of seizure d/o or been diagnosed with any eating disorders (including anorexia or bulimia).Patient also denies being diagnosed with any psych d/o and denies being on any psych meds but is noted to be on cymbalta which the patient states is for tinnitus. Patient also denies a personal or family history of medullary thyroid cancer/MEN syndrome or personal history of pancreatitis. Patient also denies any history of blood clotting disorders. At last visit,the patient was started on Mounjaro and the patient is currently on the following: Current regimen Mounjaro 2.5mg/wk (Sun) Patient states that she is doing well on the current regimen with no adverse effects including N/V/D.Note that the patient states that she completed a recent course of steroids for a URI. Currently denies any other endocrine related complaints. 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 PAST SURGICAL HISTORY Procedure Laterality Date CONIZATION OF CERVIX, LEEP NECK SURGERY HX 08/19/2016 Left C7 foraminotomy, Left C6-7 diskectomy - w/ benefit though continues to have pain (left side of neck, shooting pains in arm, left wrist and distal numbness) PAST SURGICAL HISTORY OF at age of 6 years left inguinal hernia repair PAST SURGICAL HISTORY OF Tonsillectomy FAMILY HISTORY Problem Relation Age of Onset Hyperlipidemia Mother baseline TC 300's, smoker Obesity Father Hyperlipidemia Father Hypertension Father Social History Tobacco Use Smoking status: Never Smokeless tobacco: Never Vaping Use Vaping Use: Never used Substance Use Topics Alcohol use: Not Currently Comment: none since 2019 Drug use: No Past medical history: Dyslipidemia, PCOS, migraines, arthritis, impaired fasting glucose Past surgical history: Tonsillectomy, LEEP procedure, C6/C7 discectomy Social history: Denies smoking cigarettes, denies drinking alcohol, denies recreational drugs; 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 leflunomide (ARAVA) 10 mg tablet Take 1 tablet by mouth once daily. rosuvastatin (CRESTOR) 5 mg tablet Take 1 tablet by mouth once daily. tirzepatide (MOUNJARO) 2.5 mg/0.5 mL pen injector Inject 2.5 mg under the skin one time a week. Diclofenac Potassium (CAMBIA) 50 mg pwpk Take 1 Packet by mouth as needed for migraine headache. Can repeat dose in 2 hours, no more than 2 doses per day, or 2 days per week DULoxetine (CYMBALTA) 30 mg capsule Take 1 capsule by mouth once daily. metoprolol succinate ER (TOPROL XL) 25 mg 24 hr tablet Take 1 tablet by mouth daily at bedtime. methocarbamol (ROBAXIN) 750 mg tablet Take 1 tablet by mouth four times daily. inositol powder 2 scoops, 3 times daily with or between meals Berberine 500 (Lorena) Take 1 capsule by mouth three times daily. NAC 600mg 90 ct[address] (Pure Encapsulations) Take 1 capsule twice daily, between meals. Atrantil One (2) capsule per day up to 3 x's a day with food. nystatin (MYCOSTATIN, NILSTAT) 500,000 unit tab Take 2 tablets by mouth twice daily. PHEXXI 1.8-1-0.4 % gel INSERT ONE APPLICATORFUL VAGINALLY IMMEDIATELY OR UP TO ONE HOUR BEFORE EACH EPISODE OF VAGINAL INTERCOURSE lasmiditan (REYVOW) 100 mg tablet Take 1 tablet by mouth once daily as needed fremanezumab-vfrm (AJOVY AUTOINJECTOR) 225 mg/1.5 mL auto-injector Inject 4.5 mL subcutaneously every 3 months. valACYclovir (VALTREX) 1 gram Take 1 tablet by mouth once daily. ondansetron (ZOFRAN) 4 mg tablet Take 1 tablet by mouth every 8 hours as needed for nausea/vomiting. Magnesium Citrate 150mg (Pure Encapsulations) Take 4 capsules daily. riboflavin, vitamin B2, (VITAMIN B-2) 100 mg tab Take 4 tablets by mouth once daily. coenzyme Q10 (COQ-10) 100 mg cap capsule Take 1 capsule by mouth twice daily. vitamin D3-folic acid 5,000 unit- 1 mg tab Take 5,000 Units by mouth once daily. multivitamin tablet Take 1 tablet by mouth once daily. No current facility-administered medications for this visit. ALLERGIES Allergen Reactions Dilaudid [Hydromorp* Itching Fentanyl Itching Sulfa (Sulfonamide * Rash REVIEW OF SYSTEM: Review of Systems: A 14 point review of systems negative except as above in the HPI PHYSICAL EXAMINATION: VIDEO EXAM: (if completed, performed via video enabled technology) Physical Exam Constitutional: Appearance: Normal appearance. She is obese. HENT: Head: Normocephalic and atraumatic. Nose: Nose normal. Mouth/Throat: Mouth: Mucous membranes are moist. Eyes: Conjunctiva/sclera: Conjunctivae normal. Neck: Comments: No thyromegaly noted on visual exam Pulmonary: Effort: Pulmonary effort is normal. Neurological: Mental Status: She is alert and oriented to person, place, and time. Psychiatric: Mood and Affect: Mood normal. Judgment: Judgment normal. Comments: patient states that mood is good and denies any suicidal or homicidal ideations ASSESSMENT & PLAN: Obesity Class I with Impaired fasting glucose and PCOS:Patient has a BMI of Obesity Class I = 30-34.9 with multiple comorbidities DLP and Reduced Quality of Life which can be helped by weight loss. With this BMI, the patient also qualifies for Bariatric Medications intervention.Educated the patient well today on diet and exercise and referred the patient to the nutrition clinic and exercise physiology at a previous visit.In terms of weight loss medications,the patient will likely do best with a GLP-1 as the patient also has impaired fasting glucose (with her PCOS).Note that the patient's insurance would not cover Wegovy so patient was switched to Mounjaro.Patient is doing well on the current regimen with cloth covered helmet puller adverse effects so will increase the patient to Mounjaro 5 mg/wk.Goal weight loss in this patient in 3 months is 9 lbs.Goal weight in this patient is 150 lbs.Note that weight loss should also help with the patient's PCOS. Dyslipidemia: Note that the patient has a history of DLP being managed with a statin that was recently started which the patient states that she is tolerating well with no adverse effects.Last LDL is elevated but LFTs are within normal limits.Continue current regimen and will continue to monitor FLP and CMP. I spent a total of 25 minutes on the date of the service which included preparing to see the patient, [id number] patient care, completing clinical documentation, obtaining and/or reviewing separately obtained history, performing a medically appropriate examination, counseling and educating the patient/family/caregiver, and ordering medications, tests, or procedures Patient has been counselled regarding followin. diagnostic considerations and management plan along with associated risks and benefits 2. dietary modifications, regular exercise and wt loss 3. medications and their common and serious side effects along with initial management 4. warning signs/symptoms and to call in if experiencing them, f/u, implications of non adherence 5.female patients were also well educated to call in and inform if she is or gets so medications can be adjusted as appropriate Pt has voiced clear understanding and agreement of the above. Return to clinic:3 months with labs Lani Xavier MD documented in this encounter [facility] 11-19-2022 Instructions Nancy Del Valle APRN.[facility] - 11/19/2022 2:31 PM EST Plan and Lifestyle Prescription Plan/Instructions/Resources: Reviewed labs and plan with patient. Discussed opportunities to communicate with myself and team if needed before next appointment, ie, MyChart, telephone, virtual visits. CFM labs with your next lab draw Continue current supplements For bloating: Biocidin - is an herbal supplement designed to balance overgrowth of bacteria. Start slowly with 1-2 drops, 1-2 times daily, working up to 10 drops twice daily. Take this for 2 months May try one of the following to help with gut motility and constipation: Pricila: This can be used as a tea or as a pill (1500 mg at [facility]). Whole foods carries pricila candy which can be helpful as well. Pricila containing supplements like Motil Pro, Prokine or Motility Activator 2-3 caps at night can help as well. Peppermint: This can be used as a tea or as a pill each meal. Most [employer] food stores carry this. Iberogast 10 -20 drops with each meal (Can be purchased on [employer]) and at night D limonene 1500mg daily or with meals. LDN refilled (not compounded) naltrexone 5 mg capsule (CPD) Sig: Take 1 capsule by mouth once daily. Dispense: 90 capsule Refill: 2 Medications/Supplements Recommended: Medication orders placed this encounter naltrexone 5 mg capsule (CPD) Sig: Take 1 capsule by mouth once daily. Dispense: 90 capsule Refill: 2 I recommend the supplements from the [facility] Healthy Living Store Online Store at [email or web address].co [email or web address] as we have thoroughly evaluated the research and use only highest quality supplements. Please use code: functional. Follow up: Please schedule a follow up visit with the following Caregivers: In March as scheduled LIFESTYLE PRESCRIPTION Functional Nutrition: Per real estate transaction coordinator Sleep: Sleep goal for most adults is a minimum of 7-9 hours nightly. Exercise Prescription: Numerous studies confirm the benefits of regular moderate aerobic exercise (walking, swimming, elliptical machine, cycling, etc.) for 30 min 5 days per week (150 min goal). Stress Management: 1) Please look into this Heart Rate Variability BioFeedback Tool (www.heartmath.org). 2) A regular, daily meditation practice of at least 15-20 minutes will change your brain--as well as your genes! Behavioral Health Therapist: If I recommended counseling or individual therapy, please schedule an individual appointment with our Functional Medicine Behavioral Health Therapist after your visit today. The Behavioral Health Therapist helps patients identify and understand feelings and behaviors, experience the process of making positive change, and gain healthy coping skills. Health Coaching: Please consider scheduling with our [facility] health coaches for a phone or virtual visit for accountability, goal setting and help with behavior supervisor policy change clerks the next 6-8 weeks to be successful with your goals. [phone]. Smart phone apps to begin a meditative practice: Headspace (free for first 10 days) Insight Meditation Timer- (Free)-Great all-around rosa to use for guided meditations of many different types and lengths or just to use as a tool to time and track your meditation practice. This is my absolute favorite! Calm- (Free) Walking Meditations-($1.99)- Get your walk AND meditation done together. A good way to start out for individuals who feel they just can't sit still to begin a meditative practice. During the next 6-8 weeks you'll be working on your diet plan discussed with our real estate transaction coordinator, allowing for gentle detoxification and decreasing inflammation - while we are gathering your lab results and combining those with your complete history to formulate a very personalized treatment plan. LAB results: Due to the complexity of the testing performed, we are not able to review labs via MyChart or over the phone, but please know, if any of your labs are critical we will contact you. Otherwise, we will review all your labs at your next visit. We will go over a lot of information during your follow up visit - so please be well-rested and you may want to bring someone with you, if possible. Also make sure to schedule with the real estate transaction coordinator (this will not happen automatically) as you did with your first visit so that she can review nutritional aspects of your treatment plan. By your 3rd visit, as things are improving, we will likely transition you to one of our very capable Certified Nurse Practitioners/Physician Assistants for further follow-up. Potential future labs: Any [facility] labs ordered take about 4 weeks to return. Do them as soon as possible so that we have the results before your next appointment. You can access them on the [facility] website and it can be beneficial if you review them prior to your next visit. www.[email or web address].net. Read about NutrEval if this was ordered. *Nancy Del Valle APRN.[employer] documented in this encounter [facility] 11-19-2022 History of Present illness Narrative Follow-up Visit - Virtual Patient: Kira Adhikari There is no height or weight on file to calculate BMI. Resting Metabolic Rate: 1513 Waist measurement: No waist measurement recorded. BP: ALLERGIES Allergen Reactions Dilaudid [Hydromorp* Itching Fentanyl Itching Sulfa (Sulfonamide * Rash Current Outpatient Medications on File Prior to Visit Medication Sig leflunomide (ARAVA) 10 mg tablet Take 1 tablet by mouth once daily. rosuvastatin (CRESTOR) 5 mg tablet Take 1 tablet by mouth once daily. tirzepatide (MOUNJARO) 2.5 mg/0.5 mL pen injector Inject 2.5 mg under the skin one time a week. Diclofenac Potassium (CAMBIA) 50 mg pwpk Take 1 Packet by mouth as needed for migraine headache. Can repeat dose in 2 hours, no more than 2 doses per day, or 2 days per week DULoxetine (CYMBALTA) 30 mg capsule Take 1 capsule by mouth once daily. metoprolol succinate ER (TOPROL XL) 25 mg 24 hr tablet Take 1 tablet by mouth daily at bedtime. methocarbamol (ROBAXIN) 750 mg tablet Take 1 tablet by mouth four times daily. inositol powder 2 scoops, 3 times daily with or between meals Berberine 500 (Lorena) Take 1 capsule by mouth three times daily. NAC 600mg [address] ct[address] (Pure Encapsulations) Take 1 capsule twice daily, between meals. Atrantil One (2) capsule per day up to 3 x's a day with food. nystatin (MYCOSTATIN, NILSTAT) 500,000 unit tab Take 2 tablets by mouth twice daily. PHEXXI 1.8-1-0.4 % gel INSERT ONE APPLICATORFUL VAGINALLY IMMEDIATELY OR UP TO ONE HOUR BEFORE EACH EPISODE OF VAGINAL INTERCOURSE lasmiditan (REYVOW) 100 mg tablet Take 1 tablet by mouth once daily as needed fremanezumab-vfrm (knowNormalOVLobera Cigars AUTOINJECTOR) 225 mg/1.5 mL auto-injector Inject 4.5 mL subcutaneously every 3 months. valACYclovir (VALTREX) 1 gram Take 1 tablet by mouth once daily. ondansetron (ZOFRAN) 4 mg tablet Take 1 tablet by mouth every 8 hours as needed for nausea/vomiting. Magnesium Citrate 150mg (Pure Encapsulations) Take 4 capsules daily. riboflavin, vitamin B2, (VITAMIN B-2) 100 mg tab Take 4 tablets by mouth once daily. coenzyme Q10 (COQ-10) 100 mg cap capsule Take 1 capsule by mouth twice daily. vitamin D3-folic acid 5,000 unit- 1 mg tab Take 5,000 Units by mouth once daily. multivitamin tablet Take 1 tablet by mouth once daily. No current facility-administered medications on file prior to visit. 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 PAST SURGICAL HISTORY Procedure Laterality Date CONIZATION OF CERVIX, LEEP NECK SURGERY HX 08/19/2016 Left C7 foraminotomy, Left C6-7 diskectomy - w/ benefit though continues to have pain (left side of neck, shooting pains in arm, left wrist and distal numbness) PAST SURGICAL HISTORY OF at age of 6 years left inguinal hernia repair PAST SURGICAL HISTORY OF Tonsillectomy Social History Tobacco Use Smoking status: Never Smokeless tobacco: Never Vaping Use Vaping Use: Never used Substance Use Topics Alcohol use: Not Currently Comment: none since 2019 Drug use: No Functional Medicine Timeline MSQ: Patient Entered Questionnaire PROMIS Scale T-Scores -- HIGHER SCORES BETTER PROMIS Global Health - (T-Scores - the mean of general population = 50. Five points is a clinically meaningful difference.) 09/03/2022 09/11/2022 10/22/2022 Physical T-Score 44.9 42.3 37.4 Mental T-Score 48.3 45.8 45.8 Depression Screening: PHQ-9 05/27/2022 07/18/2022 10/01/2022 Score 6 7 6 PHQ-9 Self Harm 05/27/2022 07/18/2022 10/01/2022 Question 9 Not at all Not at all Not at all PHQ-9 Self-Harm (Item 9) response options: 0 Not at all 1 Several days 2 More than half the days 3 Nearly every day PHQ-9 Levels: 0-4 Minimal depression 5-9 Mild depression 10-14 Moderate depression 15-19 Moderately severe depression 20-27 Severe depression November 19, 2022 Nancy Del Valle APRN.ARELY Subjective: Goals: Review labs Update progress Refill LDN Started using Mounjaro. - has had 3rd injection Lost 10 lbs. First she has been able to lose weight in 2 years. Hot flashes and night sweats are gone. Brain fog is better. Started Crestor yesterday Bloating has picked up again. Completed rifaximin. Gas is much better. Diet - GF, low FODMAP, very low dairy BM - every 1-3 days, formed and small and hard Supplements - magnesium citrate 800 mg, quercetin, Vit D, zinc, coQ10, omega 3's, meriva, inositol powder, green tea capsule, berberine, Atrantil - 2 caps 3 times per day. September 12, 2022 Nancy Del Valle APRN.[facility]ELY Subjective: Goals: Update progress Finally got the rifaximin. Completed it a week ago. Now has a significant reduction in gas, GERD and bloating. Has had foul smelling stool since childhood and that is better. BM - better, but still skips a day and can be hard. Stopped supplements during treatment Fatigue is coming back as well as brain fog Having severe hot flashes - every day, multiple times. Increased acne and facial hair Started metoprolol, methocarbanol, simphoni infusions Migraines and arthritis is better managed. Hot flashes happened before hot flashes. Menses monthly Used CGM - fasting 95-110 Saw music store manager last week. Reintroducing from low FODMAP Supplements - quercetin, tumeric May 27, 2022 Nancy Del Valle APRN.[employer] Subjective: Goals: Review Trio Test Feels badly, switched from Humira to Enbrel and fatigue is worse. Switched to due to flares on Humira. Has been on Enbrel for 5 weeks Bloating Diet - low sulfur BM - every 3 days Supplements Magnesium - stopped CoQ10, quercetin, tumeric, Vit D, [place] 3's, B2, MVI, megasporebiotic - stopped January 04, 2022 Nancy Del Valle APRN.ARELY Subjective: Goals: Review labs Update progress Started on Humira for arthritis in Oct, has had quite a few steroids over the last 6 months. Pain is a lot better. Very sensitive to gluten and joints are very inflammed. Has been off steroids in Oct. Stopped LDN. Fatigue resolved within 1 week of Humira. Brain fog. Has sulfur intolerance. 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 Nov 15 - received a 3 day old infant that they are planning to adopt BM - daily, formed Diet - Renew, GF. Has info for low sulfur. Supplements - magnesium, CoQ10, quercetin, tumeric, Vit D, [place] 3's, B2, MVI, megasporebiotic Subjective: 10/02/2021 Robbin Yadav MD Unable to do labs Knows she has gluten intolerance. - severe bloating and swollen in joints and pain So now off gluten Autoimmune inflammatory arthritis - Steroids for about 3 weeks. Renew Diet- G/D/Grain free On MTX 30min aerobic with daughter It was good with peptobismal - now back to constipation- she is on mag citrate 600mg LDN 5mg June 29, 2021 Nancy Del Valle APRN.ARELY Subjective: Goals: Review GI Effects Update Doing better but hands and feet are really inflammed Had a root canal. Had to stop Plaquenil due to headaches and tremors. More inflammation - hands and feet, pain and brain fog Taking LDN 5 mg - not sure it is helping Sleep - unable to stay asleep. Good sleep hygiene. Gets 6-8 hours, Taking naps Diet - some gluten, some dairy, uncertain about where to go since reintroduction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 PAST SURGICAL HISTORY Procedure Laterality Date CONIZATION OF CERVIX, LEEP NECK SURGERY HX 08/19/2016 Left C7 foraminotomy, Left C6-7 diskectomy - w/ benefit though continues to have pain (left side of neck, shooting pains in arm, left wrist and distal numbness) PAST SURGICAL HISTORY OF at age of 6 years left inguinal hernia repair PAST SURGICAL HISTORY OF Tonsillectomy FAMILY HISTORY Problem Relation Age of Onset Hyperlipidemia Mother baseline TC 300's, smoker Obesity Father Hyperlipidemia Father Hypertension Father Social History Tobacco Use Smoking status: Never Smokeless tobacco: Never Vaping Use Vaping Use: Never used Substance Use Topics Alcohol use: Not Currently Comment: none since 2019 Drug use: No Current Outpatient Medications Medication Sig rosuvastatin (CRESTOR) 5 mg tablet Take 1 tablet by mouth once daily. tirzepatide (MOUNJARO) 2.5 mg/0.5 mL pen injector Inject 2.5 mg under the skin one time a week. Diclofenac Potassium (CAMBIA) 50 mg pwpk Take 1 Packet by mouth as needed for migraine headache. Can repeat dose in 2 hours, no more than 2 doses per day, or 2 days per week DULoxetine (CYMBALTA) 30 mg capsule Take 1 capsule by mouth once daily. metoprolol succinate ER (TOPROL XL) 25 mg 24 hr tablet Take 1 tablet by mouth daily at bedtime. methocarbamol (ROBAXIN) 750 mg tablet Take 1 tablet by mouth four times daily. inositol powder 2 scoops, 3 times daily with or between meals Berberine 500 (Lorena) Take 1 capsule by mouth three times daily. NAC 600mg 90 ct[address] (Pure Encapsulations) Take 1 capsule twice daily, between meals. Atrantil One (2) capsule per day up to 3 x's a day with food. nystatin (MYCOSTATIN, NILSTAT) 500,000 unit tab Take 2 tablets by mouth twice daily. PHEXXI 1.8-1-0.4 % gel INSERT ONE APPLICATORFUL VAGINALLY IMMEDIATELY OR UP TO ONE HOUR BEFORE EACH EPISODE OF VAGINAL INTERCOURSE lasmiditan (REYVOW) 100 mg tablet Take 1 tablet by mouth once daily as needed fremanezumab-vfrm (AJOVY AUTOINJECTOR) 225 mg/1.5 mL auto-injector Inject 4.5 mL subcutaneously every 3 months. valACYclovir (VALTREX) 1 gram Take 1 tablet by mouth once daily. ondansetron (ZOFRAN) 4 mg tablet Take 1 tablet by mouth every 8 hours as needed for nausea/vomiting. Magnesium Citrate 150mg (Pure Encapsulations) Take 4 capsules daily. riboflavin, vitamin B2, (VITAMIN B-2) 100 mg tab Take 4 tablets by mouth once daily. coenzyme Q10 (COQ-10) 100 mg cap capsule Take 1 capsule by mouth twice daily. vitamin D3-folic acid 5,000 unit- 1 mg tab Take 5,000 Units by mouth once daily. multivitamin tablet Take 1 tablet by mouth once daily. No current facility-administered medications for this visit. ALLERGIES Allergen Reactions Dilaudid [Hydromorp* Itching Fentanyl Itching Sulfa (Sulfonamide * Rash REVIEW OF SYSTEMS: PHYSICAL EXAMINATION: VIDEO EXAM: (if completed, performed via video enabled technology) No exam performed ASSESSMENT: (M70.225E) Acetabular labrum tear, right, subsequent encounter (primary encounter diagnosis) (M25.174) Right hip impingement syndrome PLAN: MRI reviewed and reveals anterosuperior acetabular labral tear. In regards to the left hip there is cystic change in the femoral head neck junction consistent with with an impingement cyst. Plan for the patient reviewed. Surgical nonsurgical treatment options for the right hip are discussed. We discussed the expectations of both surgical and nonsurgical treatment pathways. She voiced understanding and wished to proceed with a corticosteroid injection and possible physical therapy. We will do this in the both hips. We will monitor the response. If she does proceed with surgery she would likely proceed in the summer 2022. We will see her back in the office in the spring. She will let us know if there are any issues in interim. All questions answered today. There are no Patient Instructions on file for this visit. I spent a total of 15 minutes on the date of the service which included preparing to see the patient, [id number] patient care, completing clinical documentation, obtaining and/or reviewing separately obtained history, counseling and educating the patient/family/caregiver, and ordering medications, tests, or procedures Emre De Leon MD documented in this encounter [facility] 11-05-2022 History of Present illness Narrative Images from the original note were not included. [facility] Department of Cardiovascular Medicine SECTION OF PREVENTIVE CARDIOLOGY 11/05/2022 Kira Adhikari CURRENT MEDS: Current Outpatient Medications Medication Sig rosuvastatin (CRESTOR) 5 mg tablet Take 1 tablet by mouth once daily. tirzepatide (MOUNJARO) 2.5 mg/0.5 mL pen injector Inject 2.5 mg under the skin one time a week. Diclofenac Potassium (CAMBIA) 50 mg pwpk Take 1 Packet by mouth as needed for migraine headache. Can repeat dose in 2 hours, no more than 2 doses per day, or 2 days per week DULoxetine (CYMBALTA) 30 mg capsule Take 1 capsule by mouth once daily. metoprolol succinate ER (TOPROL XL) 25 mg 24 hr tablet Take 1 tablet by mouth daily at bedtime. methocarbamol (ROBAXIN) 750 mg tablet Take 1 tablet by mouth four times daily. inositol powder 2 scoops, 3 times daily with or between meals Berberine 500 (Lorena) Take 1 capsule by mouth three times daily. NAC 600mg [address] ct[address] (Pure Encapsulations) Take 1 capsule twice daily, between meals. Atrantil One (2) capsule per day up to 3 x's a day with food. nystatin (MYCOSTATIN, NILSTAT) 500,000 unit tab Take 2 tablets by mouth twice daily. PHEXXI 1.8-1-0.4 % gel INSERT ONE APPLICATORFUL VAGINALLY IMMEDIATELY OR UP TO ONE HOUR BEFORE EACH EPISODE OF VAGINAL INTERCOURSE lasmiditan (REYVOW) 100 mg tablet Take 1 tablet by mouth once daily as needed cyproheptadine (PERIACTIN) 4 mg tablet Take 1 tablet by mouth three times daily as needed. fremanezumab-vfrm (AJOVY AUTOINJECTOR) 225 mg/1.5 mL auto-injector Inject 4.5 mL subcutaneously every 3 months. valACYclovir (VALTREX) 1 gram Take 1 tablet by mouth once daily. ondansetron (ZOFRAN) 4 mg tablet Take 1 tablet by mouth every 8 hours as needed for nausea/vomiting. Magnesium Citrate 150mg (Pure Encapsulations) Take 4 capsules daily. riboflavin, vitamin B2, (VITAMIN B-2) 100 mg tab Take 4 tablets by mouth once daily. coenzyme Q10 (COQ-10) 100 mg cap capsule Take 1 capsule by mouth twice daily. vitamin D3-folic acid 5,000 unit- 1 mg tab Take 5,000 Units by mouth once daily. multivitamin tablet Take 1 tablet by mouth once daily. No current facility-administered medications for this visit. ALLERGIES: ALLERGIES Allergen Reactions Dilaudid [Hydromorp* Itching Fentanyl Itching Sulfa (Sulfonamide * Rash CHIEF COMPLAINT: Kira Adhikari is a 37 year old White female seen today. Patient presents with: Hyperlipidemia HISTORY OF PRESENT CARDIOVASCULAR ILLNESS: 37 year old female with hyperlipidemia, inflammatory arthritis presents for ongoing management of cardiovascular risk factors. Patient presents for ongoing management of cardiovascular risk factors. Chest pain: No Claudication: No SOB: No Orthopnea: No PND: No LE: No Lightheadedness/dizziness: No Palpitations:No Bleeding/bruising: No CARDIAC RISK FACTORS: History question Answer Diagnosis Date Comment Dyslipidemia : Dyslipidemia 2011 Exercise: More than 5 times per week Family History of CAD: Negative 1-3 miles 2 days per week or swimming. Pilates Exercise is limited by inflammatory flares STATIN INTOLERANCE: Adverse Effect History of Statin Intolerance:: No Current Statin Freq: None USE OF PCSK9 INHIBITORS: CARDIOVASCULAR DISEASE HISTORY: CAD EVENTS; PVD EVENTS: CVD EVENTS: FAMILY AND SOCIAL HISTORY Lifestyle Tobacco Use: Never Alcohol Use: Not Currently (none since 2019) PHYSICAL EXAMINATION: No video exam was performed Clinical Test Results Ejection Fraction: Ejection Fraction: Normal (>50%) Lab Results: Lipoprotein (a) Date Value Ref Range Status 07/03/2022 46 (H) <30 mg/dL Final Cholesterol, Total Date Value Ref Range Status 10/04/2022 274 (H) <200 mg/dL Final Comment: <200 mg/dL, Desirable 200-239 mg/dL, Borderline high >239 mg/dL, High Triglyceride Date Value Ref Range Status 10/04/2022 133 <150 mg/dL Final Comment: <150 mg/dL, Normal 150-199 mg/dL, Borderline high 200-499 mg/dL, High >499 mg/dL, Very high HDL Cholesterol Date Value Ref Range Status 10/04/2022 52 >39 mg/dL Final Comment: 40-59 mg/dL, Acceptable >59 mg/dL, High: Negative risk factor for coronary heart disease <40 mg/dL, Low: Positive risk factor for coronary heart disease LDL Cholesterol Date Value Ref Range Status 10/04/2022 195 (H) <100 mg/dL Final Comment: <100 mg/dL, Optimal 100-129 mg/dL, Near optimal/above optimal 130-159 mg/dL, Borderline high 160-189 mg/dL, High >189 mg/dL, Very high Secondary prevention optimal LDL Cholesterol levels are recommended to be < 70 mg/dL Hemoglobin A1C Date Value Ref Range Status 10/04/2022 4.9 4.3 - 5.6 % Final Comment: [place] Diabetes Association guidelines indicate that patients with HgbA1c in the range 5.7-6.4% are at increased risk for development of diabetes, and intervention by lifestyle modification may be beneficial. HgbA1c greater or equal to 6.5% is considered diagnostic of diabetes. ALT Date Value Ref Range Status 10/04/2022 19 7 - 38 U/L Final Glucose Date Value Ref Range Status 10/04/2022 106 (H) 74 - 99 mg/dL Final Comment: The [place] Diabetes Association (ADA) provides guidance for cutoff values for fasting glucose and random glucose. The ADA defines fasting as no caloric intake for at least 8 hours. Fasting plasma glucose results between 100 to 125 mg/dL indicate increased risk for diabetes (prediabetes). Fasting plasma glucose results greater than or equal to 126 mg/dL meet the criteria for diagnosis of diabetes. In the absence of unequivocal hyperglycemia, results should be confirmed by repeat testing. In a patient with classic symptoms of hyperglycemia or hyperglycemic crisis, random plasma glucose results greater than or equal to 200 mg/dL meet the criteria for diagnosis of diabetes. Reference: Standards of Medical Care in Diabetes 2016, [place] Diabetes Association. Diabetes Care. 2016.39(Suppl 1). TSH Date Value Ref Range Status 09/27/2022 3.150 0.270 - 4.200 mIU/L Final Comment: If the patient is , TSH reference range varies by gestational period: First Trimester (weeks 9-12): 0.180-2.990 mIU/L Second Trimester: 0.110-3.980 mIU/L Third Trimester: 0.480-4.710 mIU/L Yeyo Cheung et al. A Practical Approach for the Verifications and Determination of Site- and Trimester-Specific Reference Intervals for Thyroid Function tests in . Thyroid, 2019:29:3:412-420. Hill E, et al. 2017 Guidelines of the [place] Thyroid Association for the Diagnosis and Management of Thyroid Disease during and the . Thyroid, 2017:27:3:315-389. UltraSens C-Reactive Protein Date Value Ref Range Status 12/27/2021 0.9 <3.1 mg/L Final Comment: (NOTE) hsCRP < 1.0 mg/L, relative risk is low hsCRP 1.0-3.0 mg/L, relative risk is average hsCRP > 3.0 mg/L, relative risk is high Reference: Donell TA, Arnulfo GA, Hill RW, et al. Markers of Inflammation and Cardiovascular Disease. Application to Clinical and Public Health Practice. A Statement for Healthcare Professionals From the Centers for Disease Control and Prevention and the [place] Heart Association. Circulation 2003;107:499-511. Creatinine Date Value Ref Range Status 10/04/2022 0.77 0.58 - 0.96 mg/dL Final Potassium Date Value Ref Range Status 10/04/2022 3.8 3.7 - 5.1 mmol/L Final Patient Entered Questionnaire Scores PHQ-9 10/01/2022 07/18/2022 05/27/2022 Score 6 7 6 LETICIA - 7 SCORES 07/05/2022 LETICIA-7 Score 0 PROMIS Global Health - (T-Scores - the mean of general population = 50. Five points is a clinically meaningful difference.) 10/22/2022 09/11/2022 09/03/2022 Physical T-Score 37.4 42.3 44.9 Mental T-Score 45.8 45.8 48.3 IMPRESSION: In summary, Ms. Adhikari is a 37 year old female who was referred to the [facility] because of , Hypercholesterolemia and Elevated L(p)a PLAN: The results of this assessment were discussed with the patient. We have mutually agreed upon the following plans and goals: Inflammatory Arthritis: - follows with Rheumatology Hyperlipidemia: LDL goal < 100, ideally <70 due to inflammatory arthritis & mildly elevated Lp(a) discussed starting statin she would like to start on lowest dosage. Pt had elevated LFT's on methotrexate that normalized when she discontinued it. Cholesterol, Total (mg/dL) Date Value 10/04/2022 274 07/03/2022 321 01/23/2021 252 02/03/2020 247 HDL Cholesterol (mg/dL) Date Value 10/04/2022 52 07/03/2022 80 01/23/2021 61 02/03/2020 56 LDL Cholesterol (mg/dL) Date Value 10/04/2022 195 07/03/2022 226 01/23/2021 179 02/03/2020 178 Triglyceride (mg/dL) Date Value 10/04/2022 133 07/03/2022 73 01/23/2021 61 02/03/2020 67 PLAN: - start rosuvastatin 5 mg every day. Discussed stains contraindicated in , had vasectomy. - follow up 12 weeks Blood Pressure: PLAN: -Blood pressure well controlled. No medications Exercise: PLAN: -AHA recommends 150 minutes of moderately intense activity per week Nutrition /Weight: on Mounjaro per Endo PLAN: -Low sodium diet less than 2300 mg day -Recommend BMI less than 27 -Follow a Mediterranean diet: Choose plenty of whole or plant based foods-fruit, vegetables, whole grains, and nuts. Choose monounsaturated fat from olive oil, olives, nuts, and avocado. [place] 3 fats are another heart healthy fat found in tuna, salmon, flaxseed, and walnuts. Limit foods high in sodium, saturated fat, and cholesterol. HEALTH MAINTENANCE: Please follow-up with your Primary Card Physician and review your health maintenance to ensure it is up to date. MEDICATION CHANGES: start Rosuvastatin 5 mg every day Physicians and Nurse Practitioners work closely together in Preventive Cardiology. If at any time you would like to see a Physician for a visit, please let us know. Last visit with [facility] physician: Hayes 08/21 AMBULATORY PATIENT EDUCATION Topic: Education on risk factors and medications. Instruction Provided To: Patient Cognitive Ability: Alert/Oriented Barriers: None Motivation to Learn: Interested Methods of Instruction: Verbal instruction and/or handouts. Patient Leans Best By: Multiple Methods Patient Verbalized: Understanding I personally spent 20 minutes in total time involved in the management and care of this patient. Sea Almendarez APRN.CNP documented in this encounter [facility] 10-31-2022 History of Present illness Narrative Virtual Visit (Audio/Visual)I have discussed the nature of this visit with the patient which will occur via Distance Health (Phone, Virtual Visit) and she agrees to proceed with this interaction. [employer] Employee Kira has currently not been exercising. She has autoimmune arthritis, and it has become a major challenge for exercising. She had a previous herniated disk on the left and now does on the right. She currently also has a hip impingement on the right and lumbar pain as well. She was very active in the past, but now is unsure on what her path to physical activity. She states that it depends on the day and its random when she is able to exercise and not. She has been able to do some long distance walking up to 3 miles or greater, but other times is in too much pain. She is looking for something mild with possibly incorporating bands, where she can push it on the days she is ok. At home she has a TM, Rowing machine, FW, Barbells, and resistance bands. Lorena will meet her for a Virtual Exercise Prescription on 11/06/22 at 4:20 pm. Based on the ACSM's Guidelines for Exercise Testing & Prescription, the patient will not require a stress test prior to receiving an exercise prescription. documented in this encounter [facility] 10-23-2022 History of Past i llness Narrative Problem Noted Date Diagnosed Date Resolved Date Obesity, Class I, BMI 30-34.9 10/23/2022 06/06/2023 BMI 30.0-30.9,adult 10/05/2022 06/06/20 23 documented as of this encounter (statuses as of 06/07/2023) [facility] History of Past illness Narrative* Problem Noted Date Diagnosed Date Resolved Date Obesity, Class I, BMI 30-34.9 10/23/2022 06/06/2023 BMI 30.0-30.9,adult 10/05/2022 06/06/20 23 documented as of this encounter (statuses as of 06/11/2023) [facility] History of Past illness Narrative* Problem Noted Date Diagnosed Date Resolved Date Obesity, Class I, BMI 30-34.9 10/23/2022 06/06/2023 BMI 30.0-30.9,adult 10/05/2022 06/06/20 23 documented as of this encounter (statuses as of 06/13/2023) [facility] History of Past illness Narrative* Problem Noted Date Diagnosed Date Resolved Date Obesity, Class I, BMI 30-34.9 10/23/2022 06/06/2023 BMI 30.0-30.9,adult 10/05/2022 06/06/20 23 documented as of this encounter (statuses as of 06/13/2023) [address]23-2022 History of Past illness Narrative* Problem Noted Date Diagnosed Date Resolved Date Obesity, Class I, BMI 30-34.9 10/23/2022 06/06/2023 BMI 30.0-30.9,adult 10/05/2022 06/06/20 23 documented as of this encounter (statuses as of 06/13/2023) [address]23-2022 History of Past illness Narrative* Problem Noted Date Diagnosed Date Resolved Date Obesity, Class I, BMI 30-34.9 10/23/2022 06/06/2023 BMI 30.0-30.9,adult 10/05/2022 06/06/20 23 documented as of this encounter (statuses as of 06/16/2023) [address]23-2022 History of Past illness Narrative* Problem Noted Date Diagnosed Date Resolved Date Obesity, Class I, BMI 30-34.9 10/23/2022 06/06/2023 BMI 30.0-30.9,adult 10/05/2022 06/06/20 23 documented as of this encounter (statuses as of 06/16/2023) [address]23-2022 History of Past illness Narrative* Problem Noted Date Diagnosed Date Resolved Date Obesity, Class I, BMI 30-34.9 10/23/2022 06/06/2023 BMI 30.0-30.9,adult 10/05/2022 06/06/20 23 documented as of this encounter (statuses as of 06/19/2023) [address]23-2022 History of Past illness Narrative* Problem Noted Date Diagnosed Date Resolved Date Obesity, Class I, BMI 30-34.9 10/23/2022 06/06/2023 BMI 30.0-30.9,adult 10/05/2022 06/06/20 23 documented as of this encounter (statuses as of 06/20/2023) [address]23-2022 History of Past illness Narrative* Problem Noted Date Diagnosed Date Resolved Date Obesity, Class I, BMI 30-34.9 10/23/2022 06/06/2023 BMI 30.0-30.9,adult 10/05/2022 06/06/20 23 documented as of this encounter (statuses as of 06/25/2023) [address]23-2022 History of Past illness Narrative* Problem Noted Date Diagnosed Date Resolved Date Obesity, Class I, BMI 30-34.9 10/23/2022 06/06/2023 BMI 30.0-30.9,adult 10/05/2022 06/06/20 23 documented as of this encounter (statuses as of 06/26/2023) [address]23-2022 History of Past illness Narrative* Problem Noted Date Diagnosed Date Resolved Date Obesity, Class I, BMI 30-34.9 10/23/2022 06/06/2023 BMI 30.0-30.9,adult 10/05/2022 06/06/20 23 documented as of this encounter (statuses as of 06/26/2023) [address]-2022 History of Past illness Narrative* Problem Noted Date Diagnosed Date Resolved Date Obesity, Class I, BMI 30-34.9 10/23/2022 06/06/2023 BMI 30.0-30.9,adult 10/05/2022 06/06/20 23 documented as of this encounter (statuses as of 06/27/2023) [address]23-2022 History of Past illness Narrative* Problem Noted Date Diagnosed Date Resolved Date Obesity, Class I, BMI 30-34.9 10/23/2022 06/06/2023 BMI 30.0-30.9,adult 10/05/2022 06/06/20 23 documented as of this encounter (statuses as of 06/30/2023) [address]23-2022 History of Past illness Narrative* Problem Noted Date Diagnosed Date Resolved Date Obesity, Class I, BMI 30-34.9 10/23/2022 06/06/2023 BMI 30.0-30.9,adult 10/05/2022 06/06/20 23 documented as of this encounter (statuses as of 07/03/2023) [address]23-2022 History of Past illness Narrative* Problem Noted Date Diagnosed Date Resolved Date Obesity, Class I, BMI 30-34.9 10/23/2022 06/06/2023 BMI 30.0-30.9,adult 10/05/2022 06/06/20 23 documented as of this encounter (statuses as of 07/03/2023) [address]23-2022 History of Past illness Narrative* Problem Noted Date Diagnosed Date Resolved Date Obesity, Class I, BMI 30-34.9 10/23/2022 06/06/2023 BMI 30.0-30.9,adult 10/05/2022 06/06/20 23 documented as of this encounter (statuses as of 07/10/2023) [address]23-2022 History of Past illness Narrative* Problem Noted Date Diagnosed Date Resolved Date Obesity, Class I, BMI 30-34.9 10/23/2022 06/06/2023 BMI 30.0-30.9,adult 10/05/2022 06/06/20 23 documented as of this encounter (statuses as of 07/17/2023) [address]23-2022 History of Past illness Narrative* Problem Noted Date Diagnosed Date Resolved Date Obesity, Class I, BMI 30-34.9 10/23/2022 06/06/2023 BMI 30.0-30.9,adult 10/05/2022 06/06/20 23 documented as of this encounter (statuses as of 07/18/2023) [address]23-2022 History of Past illness Narrative* Problem Noted Date Diagnosed Date Resolved Date Obesity, Class I, BMI 30-34.9 10/23/2022 06/06/2023 BMI 30.0-30.9,adult 10/05/2022 06/06/20 23 documented as of this encounter (statuses as of 07/22/2023) [address]23-2022 History of Past illness Narrative* Problem Noted Date Diagnosed Date Resolved Date Obesity, Class I, BMI 30-34.9 10/23/2022 06/06/2023 BMI 30.0-30.9,adult 10/05/2022 06/06/20 23 documented as of this encounter (statuses as of 07/22/2023) [address]23-2022 History of Past illness Narrative* Problem Noted Date Diagnosed Date Resolved Date Obesity, Class I, BMI 30-34.9 10/23/2022 06/06/2023 BMI 30.0-30.9,adult 10/05/2022 06/06/20 23 documented as of this encounter (statuses as of 07/23/2023) [address]23-2022 History of Past illness Narrative* Problem Noted Date Diagnosed Date Resolved Date Obesity, Class I, BMI 30-34.9 10/23/2022 06/06/2023 BMI 30.0-30.9,adult 10/05/2022 06/06/20 23 documented as of this encounter (statuses as of 07/24/2023) [address]23-2022 History of Past illness Narrative* Problem Noted Date Diagnosed Date Resolved Date Obesity, Class I, BMI 30-34.9 10/23/2022 06/06/2023 BMI 30.0-30.9,adult 10/05/2022 06/06/20 23 documented as of this encounter (statuses as of 07/29/2023) [address]23-2022 History of Past illness Narrative* Problem Noted Date Diagnosed Date Resolved Date Obesity, Class I, BMI 30-34.9 10/23/2022 06/06/2023 BMI 30.0-30.9,adult 10/05/2022 06/06/20 23 documented as of this encounter (statuses as of 07/30/2023) [address]23-2022 History of Past illness Narrative* Problem Noted Date Diagnosed Date Resolved Date Obesity, Class I, BMI 30-34.9 10/23/2022 06/06/2023 BMI 30.0-30.9,adult 10/05/2022 06/06/20 23 documented as of this encounter (statuses as of 07/31/2023) [address]23-2022 History of Past illness Narrative* Problem Noted Date Diagnosed Date Resolved Date Obesity, Class I, BMI 30-34.9 10/23/2022 06/06/2023 BMI 30.0-30.9,adult 10/05/2022 06/06/20 23 documented as of this encounter (statuses as of 07/31/2023) [address]23-2022 History of Past illness Narrative* Problem Noted Date Diagnosed Date Resolved Date Obesity, Class I, BMI 30-34.9 10/23/2022 06/06/2023 BMI 30.0-30.9,adult 10/05/2022 06/06/20 23 documented as of this encounter (statuses as of 08/11/2023) [address]23-2022 History of Past illness Narrative* Problem Noted Date Diagnosed Date Resolved Date Obesity, Class I, BMI 30-34.9 10/23/2022 06/06/2023 BMI 30.0-30.9,adult 10/05/2022 06/06/20 23 documented as of this encounter (statuses as of 08/15/2023) [address]-2022 History of Past illness Narrative* Problem Noted Date Diagnosed Date Resolved Date Obesity, Class I, BMI 30-34.9 10/23/2022 06/06/2023 BMI 30.0-30.9,adult 10/05/2022 06/06/20 23 documented as of this encounter (statuses as of 08/15/2023) [address]23-2022 History of Past illness Narrative* Problem Noted Date Diagnosed Date Resolved Date Obesity, Class I, BMI 30-34.9 10/23/2022 06/06/2023 BMI 30.0-30.9,adult 10/05/2022 06/06/20 23 documented as of this encounter (statuses as of 08/16/2023) [address]23-2022 History of Past illness Narrative* Problem Noted Date Diagnosed Date Resolved Date Obesity, Class I, BMI 30-34.9 10/23/2022 06/06/2023 BMI 30.0-30.9,adult 10/05/2022 06/06/20 23 documented as of this encounter (statuses as of 08/19/2023) [address]23-2022 History of Past illness Narrative* Problem Noted Date Diagnosed Date Resolved Date Obesity, Class I, BMI 30-34.9 10/23/2022 06/06/2023 BMI 30.0-30.9,adult 10/05/2022 06/06/20 23 documented as of this encounter (statuses as of 08/20/2023) [address]23-2022 History of Past illness Narrative* Problem Noted Date Diagnosed Date Resolved Date Obesity, Class I, BMI 30-34.9 10/23/2022 06/06/2023 BMI 30.0-30.9,adult 10/05/2022 06/06/20 23 documented as of this encounter (statuses as of 08/22/2023) [address]23-2022 History of Past illness Narrative* Problem Noted Date Diagnosed Date Resolved Date Obesity, Class I, BMI 30-34.9 10/23/2022 06/06/2023 BMI 30.0-30.9,adult 10/05/2022 06/06/20 23 documented as of this encounter (statuses as of 09/09/2023) [address]23-2022 History of Past illness Narrative* Problem Noted Date Diagnosed Date Resolved Date Obesity, Class I, BMI 30-34.9 10/23/2022 06/06/2023 BMI 30.0-30.9,adult 10/05/2022 06/06/20 23 documented as of this encounter (statuses as of 09/16/2023) [address]23-2022 History of Past illness Narrative* Problem Noted Date Diagnosed Date Resolved Date Obesity, Class I, BMI 30-34.9 10/23/2022 06/06/2023 BMI 30.0-30.9,adult 10/05/2022 06/06/20 23 documented as of this encounter (statuses as of 09/17/2023) [address]23-2022 History of Past illness Narrative* Problem Noted Date Diagnosed Date Resolved Date Obesity, Class I, BMI 30-34.9 10/23/2022 06/06/2023 BMI 30.0-30.9,adult 10/05/2022 06/06/20 23 documented as of this encounter (statuses as of 09/19/2023) [address]23-2022 History of Past illness Narrative* Problem Noted Date Diagnosed Date Resolved Date Obesity, Class I, BMI 30-34.9 10/23/2022 06/06/2023 BMI 30.0-30.9,adult 10/05/2022 06/06/20 23 documented as of this encounter (statuses as of 09/22/2023) [address]23-2022 History of Past illness Narrative* Problem Noted Date Diagnosed Date Resolved Date Obesity, Class I, BMI 30-34.9 10/23/2022 06/06/2023 BMI 30.0-30.9,adult 10/05/2022 06/06/20 23 documented as of this encounter (statuses as of 09/23/2023) [address]23-2022 History of Past illness Narrative* Problem Noted Date Diagnosed Date Resolved Date Obesity, Class I, BMI 30-34.9 10/23/2022 06/06/2023 BMI 30.0-30.9,adult 10/05/2022 06/06/20 23 documented as of this encounter (statuses as of 10/15/2023) [address]23-2022 History of Past illness Narrative* Problem Noted Date Diagnosed Date Resolved Date Obesity, Class I, BMI 30-34.9 10/23/2022 06/06/2023 BMI 30.0-30.9,adult 10/05/2022 06/06/20 23 documented as of this encounter (statuses as of 11/10/2023) [address]-2022 History of Past illness Narrative* Problem Noted Date Diagnosed Date Resolved Date Obesity, Class I, BMI 30-34.9 10/23/2022 06/06/2023 BMI 30.0-30.9,adult 10/05/2022 06/06/20 23 documented as of this encounter (statuses as of 11/14/2023) [address]23-2022 History of Past illness Narrative* Problem Noted Date Diagnosed Date Resolved Date Obesity, Class I, BMI 30-34.9 10/23/2022 06/06/2023 BMI 30.0-30.9,adult 10/05/2022 06/06/20 23 documented as of this encounter (statuses as of 01/02/2024) [address]23-2022 History of Past illness Narrative* Problem Noted Date Diagnosed Date Resolved Date Obesity, Class I, BMI 30-34.9 10/23/2022 06/06/2023 BMI 30.0-30.9,adult 10/05/2022 06/06/20 23 documented as of this encounter (statuses as of 01/05/2024) [address]23-2022 History of Past illness Narrative* Problem Noted Date Diagnosed Date Resolved Date Obesity, Class I, BMI 30-34.9 10/23/2022 06/06/2023 BMI 30.0-30.9,adult 10/05/2022 06/06/20 23 documented as of this encounter (statuses as of 01/13/2024) [address]23-2022 History of Past illness Narrative* Problem Noted Date Diagnosed Date Resolved Date Obesity, Class I, BMI 30-34.9 10/23/2022 06/06/2023 BMI 30.0-30.9,adult 10/05/2022 06/06/20 23 documented as of this encounter (statuses as of 01/21/2024) [address]23-2022 History of Past illness Narrative* Problem Noted Date Diagnosed Date Resolved Date Obesity, Class I, BMI 30-34.9 10/23/2022 06/06/2023 BMI 30.0-30.9,adult 10/05/2022 06/06/20 23 documented as of this encounter (statuses as of 01/21/2024) [address]23-2022 History of Past illness Narrative* Problem Noted Date Diagnosed Date Resolved Date Obesity, Class I, BMI 30-34.9 10/23/2022 06/06/2023 BMI 30.0-30.9,adult 10/05/2022 06/06/20 23 documented as of this encounter (statuses as of 02/11/2024) [address]23-2022 History of Past illness Narrative* Problem Noted Date Diagnosed Date Resolved Date Obesity, Class I, BMI 30-34.9 10/23/2022 06/06/2023 BMI 30.0-30.9,adult 10/05/2022 06/06/20 23 documented as of this encounter (statuses as of 02/16/2024) [address]23-2022 History of Past illness Narrative* Problem Noted Date Diagnosed Date Resolved Date Obesity, Class I, BMI 30-34.9 10/23/2022 06/06/2023 BMI 30.0-30.9,adult 10/05/2022 06/06/20 23 documented as of this encounter (statuses as of 03/05/2024) [address]23-2022 History of Past illness Narrative* Problem Noted Date Diagnosed Date Resolved Date Obesity, Class I, BMI 30-34.9 10/23/2022 06/06/2023 BMI 30.0-30.9,adult 10/05/2022 06/06/20 23 documented as of this encounter (statuses as of 03/12/2024) [facility]11-23-2022 History of Past illness Narrative* Problem Noted Date Diagnosed Date Resolved Date Obesity, Class I, BMI 30-34.9 10/23/2022 06/06/2023 BMI 30.0-30.9,adult 10/05/2022 06/06/20 23 documented as of this encounter (statuses as of 03/18/2024) [facility]11-23-2022 History of Past illness Narrative* Problem Noted Date Diagnosed Date Resolved Date Obesity, Class I, BMI 30-34.9 10/23/2022 06/06/2023 BMI 30.0-30.9,adult 10/05/2022 06/06/20 23 documented as of this encounter (statuses as of 03/19/2024) [facility]-23-2022 History of Past illness Narrative* Problem Noted Date Diagnosed Date Resolved Date Obesity, Class I, BMI 30-34.9 10/23/2022 06/06/2023 BMI 30.0-30.9,adult 10/05/2022 06/06/20 23 documented as of this encounter (statuses as of 03/19/2024) [facility]11-23-2022 Instructions* Patient Instructions* Lani Xavier MD - 10/23/2022 11:23 AM EST WEIGHT MANAGEMENT PROGRAM Thank you for seeing me in [facility] Today. Please schedule your follow-up appointment: -- Call Center: [phone] or [phone] Please call this number to make your follow up appointment. If you are on [facility] medications that must be filled by a certain date please notify person at the CallCenter to ensure scheduled within needed timeframe. -- Dietitian: [phone] Please call this number to make your appointment. You can be seen at [address], [place] [facility] -- [facility] Our team will contact you via Animail with the next steps -- Shared medical appointment patient coordinator: [phone] Our team will contact you to schedule your shared medical appointment -- If any questions regarding your visit today please call Alia Computer Artist at [phone] or via Animail To Cancel an appointment, please choose one of the following: - Call the Appointment Call Center at [phone] or [phone] - From Animail, Go to Appointments - Cancel Appts FOR THE WEIGHT MANAGEMENT TEAM - instructions Use call center number to schedule follow up appointment for weight management when seeing patient virtually Instruct the patient to go to front office associate to schedule follow up appointment Alternatively send a message to Codementor to contact the patient and schedule appointment: P ThromboV[employer] Stageit ([id number]) Shared Medical Appointment: send a message directly to Lori or Colleen to schedule SMA Thank you for choosing the [facility] Department of Endocrinology, Diabetes and Metabolism. -Recommended Exercise goals to patient are Moderate Aerobic Exercise 150 min/wk or Vigorous AerobicExercise 75 min/wk for weight loss maintenance and Moderate Aerobic Exercise 300 min/wk or VigorousAerobic Exercise 150 min/wk and add resistance exercise x2-3/week for increased weight loss. documented [facility] History of Present illness Narrative* Lani Xavier MD - 10/23/2022 10:49 AM EST Endocrinology Virtual Visit Consultation requested by Dr. Macie Dai MD for an opinion regarding medical weight management. My final recommendations will be communicated back to the requesting physician by way of shared Medical record or letter to requesting physician via US mail. This is a virtual visit using Animail video visit. It required patient-provider interaction for themedical decision making as documented below. Kira Adhikari is a 36 year old year old female seen for medical weight management.Reported (Ht-5'5,Wt-185 lbs;BMI-30.8). Briefly, patient states that she was not heavy as a child but her father was heavy. Patient states that her trigger for weight gain was when she started using steroids intermittently for arthritis where the patient received 6 courses of steroids for 1 month with last used in 07/2022. Patient states that she has tried multiple diets in the past including WW and beach body and is currently gluten-free. Patient states that her exercise is currently limited with injuries. Note the patient states that she has been on Adipex in the past but was not able to get good weight loss with it. Patient states that she did not have any adverse effects on the Adipex including chest pain or palpitations. Patient states that the most weight she has lost in the past was approximately 30 pounds in 4 months when she was eating healthy. Patient states that her eating style is neither grazing or binging but hercravings are mainly for sweets. Note that patient states that she has also been on Topamax in the past without good weight loss.Patient states that LMP-beginning of the month and the patient's also has a vasectomy. Current regimen None Patient currently denies a history of OH,problems with heart valves,arrhythmias.She also denies being on any opioid based pain medications,denies a history of seizure d/o or been diagnosed with any eating disorders (including anorexia or bulimia).Patient also denies being diagnosed with any psych d/o and denies being on any psych meds but is noted to be on cymbalta which the patient states is fortinnitus. Patient also denies a personal or family history of medullary thyroid cancer/MEN syndromeor personal history of pancreatitis. Patient also denies any history of blood clotting disorders. Currently denies any other endocrine related complaints. 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 PAST SURGICAL HISTORY Procedure Laterality Date CONIZATION OF CERVIX, LEEP NECK SURGERY HX 08/19/2016 Left C7 foraminotomy, Left C6-7 diskectomy - w/ benefit though continues to have pain (left side ofneck, shooting pains in arm, left wrist and distal numbness) PAST SURGICAL HISTORY OF at age of 6 years left inguinal hernia repair PAST SURGICAL HISTORY OF Tonsillectomy FAMILY HISTORY Problem Relation Age of Onset Hyperlipidemia Mother baseline TC 300's, smoker Obesity Father Hyperlipidemia Father Hypertension Father Social History Tobacco Use Smoking status: Never Smokeless tobacco: Never Vaping Use Vaping Use: Never used Substance Use Topics Alcohol use: Not Currently Comment: none since 2019 Drug use: No Past medical history: Dyslipidemia, PCOS, migraines, arthritis, impaired fasting glucose Past surgical history: Tonsillectomy, LEEP procedure, C6/C7 discectomy Social history: Denies smoking cigarettes, denies drinking alcohol, denies recreational drugs; 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 Can repeat dose in 2 hours, no more than 2 doses per day, or 2 days per week DULoxetine (CYMBALTA) 30 mg capsule Take 1 capsule by mouth once daily. metoprolol succinate ER (TOPROL XL) 25 mg 24 hr tablet Take 1 tablet by mouth daily at bedtime. methocarbamol (ROBAXIN) 750 mg tablet Take 1 tablet by mouth four times daily. inositol powder 2 scoops, 3 times daily with or between meals Berberine 500 (Lorena) Take 1 capsule by mouth three times daily. NAC 600mg 90 ct. (Pure Encapsulations) Take 1 capsule twice daily, between meals. Atrantil One (2) capsule per day up to 3 x's a day with food. nystatin (MYCOSTATIN, NILSTAT) 500,000 unit tab Take 2 tablets by mouth twice daily. PHEXXI 1.8-1-0.4 % gel INSERT ONE APPLICATORFUL VAGINALLY IMMEDIATELY OR UP TO ONE HOUR BEFORE EACHEPISODE OF VAGINAL INTERCOURSE lasmiditan (REYVOW) 100 mg tablet Take 1 tablet by mouth once daily as needed cyproheptadine (PERIACTIN) 4 mg tablet Take 1 tablet by mouth three times daily as needed. fremanezumab-vfrm (AJOVY AUTOINJECTOR) 225 mg/1.5 mL auto-injector Inject 4.5 mL subcutaneously every 3 months. valACYclovir (VALTREX) 1 gram Take 1 tablet by mouth once daily. ondansetron (ZOFRAN) 4 mg tablet Take 1 tablet by mouth every 8 hours as needed for nausea/vomiting. Magnesium Citrate 150mg (Pure Encapsulations) Take 4 capsules daily. riboflavin, vitamin B2, (VITAMIN B-2) 100 mg tab Take 4 tablets by mouth once daily. coenzyme Q10 (COQ-10) 100 mg cap capsule Take 1 capsule by mouth twice daily. vitamin D3-folic acid 5,000 unit- 1 mg tab Take 5,000 Units by mouth once daily. multivitamin tablet Take 1 tablet by mouth once daily. No current facility-administered medications for this visit. ALLERGIES Allergen Reactions Dilaudid [Hydromorp* Itching Fentanyl Itching Sulfa (Sulfonamide * Rash REVIEW OF SYSTEM: Review of Systems: A 14 point review of systems negative except as above in the HPI PHYSICAL EXAMINATION: VIDEO EXAM: (if completed, performed via video enabled technology) Physical Exam Constitutional: Appearance: Normal appearance. She is obese. HENT: Head: Normocephalic and atraumatic. Nose: Nose normal. Mouth/Throat: Mouth: Mucous membranes are moist. Eyes: Conjunctiva/sclera: Conjunctivae normal. Neck: Comments: No thyromegaly noted on visual exam Pulmonary: Effort: Pulmonary effort is normal. Skin: Comments: no violaceous striae noted on abdomen Neurological: Mental Status: She is alert and oriented to person, place, and time. Psychiatric: Mood and Affect: Mood normal. Judgment: Judgment normal. Comments: patient states that mood is good and denies any suicidal or homicidal ideations ASSESSMENT & PLAN: Obesity Class I with Impaired fasting glucose and PCOS:Patient has a BMI of Obesity Class I = 30-34.9 with multiple comorbidities DLP and Reduced Quality of Life which can be helped by weight loss. With this BMI, the patient also qualifies for Bariatric Medications intervention.Educated the patientwell today on diet and exercise and referred the patient to the nutrition clinic and exercise physiology.In terms of weight loss medications,the patient will likely do best with a GLP-1 as the patient also has impaired fasting glucose (with her PCOS).So will start the patient on Wegovy 0.25mg/wk.Goal weight loss in this patient in 3 months is 9 lbs.Goal weight in this patient is 150 lbs.Note that weight loss should also help with the patient's PCOS. Dyslipidemia:Patient gives a history of dyslipidemia but does not appear to be on a statin.Will continue current management and get CMP and FLP for next visit. I spent a total of 60 minutes on the date of the service which included preparing to see the patient, [id number] patient care, completing clinical documentation, obtaining and/or reviewing separately obtained history, performing a medically appropriate examination, counseling and educating the pat ient/family/caregiver, and ordering medications, tests, or procedures Patient has been counselled regarding followin. diagnostic considerations and management plan along with associated risks and benefits 2. dietary modifications, regular exercise and wt loss 3. medications and their common and serious side effects along with initial management 4. warning signs/symptoms and to call in if experiencing them, f/u, implications of non adherence 5.female patients were also well educated to call in and inform if she is or gets so medications can be adjusted as appropriate Pt has voiced clear understanding and agreement of the above. Return to clinic:3 months with labs Lani Xavier MD Note:due to cost issues,patient wanted to be switched to Mounjaro.Explained that Mounjaro was off-label for weight loss to patient and explained the risks and benefits of the medication and switched the patient to Mounjaro 2.5mg/wk as per patient request. RTC:[address] Xavier documented in [facility] encounter[facility] Miscellaneous Notes* Telephone Encounter - Carlotta Noriega MD - 10/14/2022 11:31 AM EST Filed * Telephone Encounter - Gayatri Brown RN - 10/14/2022 10:34 AM EST Please review pended orders. Gayatri Brown RN * Telephone Encounter - Carlotta Noriega MD - 10/14/2022 10:04 AM EST Patient called with migraine headache for 5 days with no relief after usual measures. Please pend orders for pt to receive Reglan 10 mg IV, Benadryl 25 mg IV, and Dexamethasone 10 mg IV at [facility] thank you documented in this encounterThe [facility]11-[facility] History of Present illness Narrative* Jennifer Grossman [facility] - 10/14/2022 10:20 AM EST Refill Authorization Consent Kiar Adhikari was encountered by text or [employer] message to obtain consent for pharmacist managedrefill authorization. Patient gives consent to the authorization of prescriptions by a pharmacist. Jennifer Grossman [facility] 10/14/2022 documented in this encounterThe [facility]11-10-2022 Miscellaneous Notes* Telephone Encounter - Melyssashivani Hi Adm - 10/10/2022 4:52 PM EST Physician: Jamey Call from patient requesting refill. Please E-Scribe Last OV: 10/03/2022 with Jamey Future OV: 01/09/2023 with Jamey Med was discontinued on 08/07/[address] Torre. Patient sent [employer] message stating that it shouldn'thave been discontinued and needed a refill Requested Prescriptions Pending Prescriptions Disp Refills Diclofenac Potassium (CAMBIA) 50 mg pwpk 18 Packet 3 Sig: Take 1 Packet by mouth as needed for migraine headache. Can repeat dose in 2 hours, no more than 2 doses per day, or 2 days per week Pharmacy Name: [facility] Melyssa Hi Adm documented in this encounterThe [facility]11-07-[facility]22 Miscellaneous Notes* Telephone Encounter - Macie Dai MD - 10/07/2022 2:27 PM EST Done via endocrine PA customer support advisor * Telephone Encounter - Terry Hartman ([employer]) - 10/07/2022 9:04 AM EST Ambulatory Pharmacy Prior Authorization Note Provider Intervention Required?: Yes- [facility] EHP requires prior authorization to be submitted by the provider. EHP Form Drug: OZEMPIC 0.25 mg or 0.5 mg(2 mg/1.5 mL) pen Additional Information: N/A Please fax completed paperwork to [phone] or email to [email or web address]. [facility] sent via CoverMyMeds. For questions relating to this submission, please contact [facility] [phone] documented in this encounterThe [facility]11-05-[facility] History of Present illness Narrative* Macie Dai MD - 10/05/2022 9:00 AM EDT VIRTUAL VISIT This is a virtual visit using [employer] (HIPAA-compliant) It required patient-provider interaction for the medical decision making as documented below. REASON FOR CONSULTATION: PCOS High fasting glucose Weight gain, steroid intake Hot flashes HISTORY Ms Kira Adhikari is a 36 year old female who comes in here for evaluation of the above. The patient is referred by Dr. David Kilgore (PCP). My recommendations will be sent to the referring physician/provider by way of a letter or by shared electronic medical record. PCOS was diagnosed years ago yn- acne, hirsutism, US But always had regular periods except as below Previous related meds: Current related meds: Prednisone for inflammatory arthritis by rheum Dr. 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 Hx: neg MTC REVIEW OF SYSTEMS As above PHYSICAL EXAMINATION by video GENERAL: not in distress, well-appearing HEENT: anicteric sclerae, non-injected conjunctivae NECK: able to move easily, no obvious goiter NEUROLOGIC: alert, oriented LABS REVIEWED: Component Latest Ref Rng & Units 07/03/2022 09/27/2022 Protein, Total 6.3 - 8.0 g/dL 7.4 Albumin 3.9 - 4.9 g/dL 4.6 Calcium 8.5 - 10.2 mg/dL 9.3 Bilirubin, Total 0.2 - 1.3 mg/dL 0.2 Alkaline Phosphatase 34 - 123 U/L 51 AST 13 - 35 U/L 24 ALT 7 - 38 U/L 21 Glucose 74 - 99 mg/dL 108 (H) BUN 7 - 21 mg/dL 11 Creatinine 0.58 - 0.96 mg/dL 0.74 Sodium 136 - 144 mmol/L 137 Potassium 3.7 - 5.1 mmol/L 3.8 Chloride 97 - 105 mmol/L 103 CO2 22 - 30 mmol/L 21 (L) Anion Gap 9 - 18 mmol/L 13 eGFR >=60 mL/min/1.73m 107 Cholesterol, Total <200 mg/dL 321 (H) Triglyceride <150 mg/dL 73 HDL Cholesterol >39 mg/dL 80 Non HDL Cholesterol <130 mg/dL 241 (H) Fasting Time hrs 12 VLDL Cholesterol <30 mg/dL 15 TC:HDL Ratio <5.10 4.01 LDL Cholesterol <100 mg/dL 226 (H) LDL:HDL Ratio <2.54 2.83 (H) Lipoprotein (a) <30 mg/dL 46 (H) TSH 0.270 - 4.200 mIU/L 3.150 Free T3 2.3 - 4.1 pg/mL 3.5 Free T4 0.9 - 1.7 ng/dL 0.8 (L) Insulin 3.0 - 25.0 mU/L 15.5 Estradiol 17B pg/mL 137 Progesterone See comment ng/mL 9.4 FSH See comment mIU/mL 3.7 Sex Hormone Bind GLB 25 - 122 nmol/L 74 LH See comment mIU/mL 5.9 DHEA-S 60.9 - 337.0 ug/dL 136.6 Component Latest Ref Rng & Units 10/04/2022 Protein, Total 6.3 - 8.0 g/dL 7.2 Albumin 3.9 - 4.9 g/dL 4.4 Calcium 8.5 - 10.2 mg/dL 9.2 Bilirubin, Total 0.2 - 1.3 mg/dL 0.3 Alkaline Phosphatase 34 - 123 U/L 53 AST 13 - 35 U/L 21 ALT 7 - 38 U/L 19 Glucose 74 - 99 mg/dL 106 (H) BUN 7 - 21 mg/dL 12 Creatinine 0.58 - 0.96 mg/dL 0.77 Sodium 136 - 144 mmol/L 137 Potassium 3.7 - 5.1 mmol/L 3.8 Chloride 97 - 105 mmol/L 102 CO2 22 - 30 mmol/L 26 Anion Gap 9 - 18 mmol/L 9 eGFR >=60 mL/min/1.73m 102 Cholesterol, Total <200 mg/dL 274 (H) Triglyceride <150 mg/dL 133 HDL Cholesterol >39 mg/dL 52 Non HDL Cholesterol <130 mg/dL 222 (H) Fasting Time hrs 10 VLDL Cholesterol <30 mg/dL 27 TC:HDL Ratio <5.10 5.27 (H) LDL Cholesterol <100 mg/dL 195 (H) LDL:HDL Ratio <2.54 3.75 (H) Hemoglobin A1C 4.3 - 5.6 % 4.9 Estimated Average Glucose mg/dL 94 IMAGING REVIEWED: N/a 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 PAST SURGICAL HISTORY Procedure Laterality Date CONIZATION OF CERVIX, LEEP NECK SURGERY HX 08/19/2016 Left C7 foraminotomy, Left C6-7 diskectomy - w/ benefit though continues to have pain (left side ofneck, shooting pains in arm, left wrist and distal numbness) PAST SURGICAL HISTORY OF at age of 6 years left inguinal hernia repair PAST SURGICAL HISTORY OF Tonsillectomy Social History Tobacco Use Smoking status: Never Smokeless tobacco: Never Vaping Use Vaping Use: Never used Substance Use Topics Alcohol use: Not Currently Comment: none since 2019 Drug use: No FAMILY HISTORY Problem Relation Age of Onset Hyperlipidemia Mother baseline TC 300's, smoker Obesity Father Hyperlipidemia Father Hypertension Father Current Outpatient Medications Medication Sig metoprolol succinate ER (TOPROL XL) 25 mg 24 hr tablet Take 1 tablet by mouth daily at bedtime. methocarbamol (ROBAXIN) 750 mg tablet Take 1 tablet by mouth four times daily. inositol powder 2 scoops, 3 times daily with or between meals Berberine 500 (Lorena) Take 1 capsule by mouth three times daily. NAC 600mg 90 ct. (Pure Encapsulations) Take 1 capsule twice daily, between meals. Atrantil One (2) capsule per day up to 3 x's a day with food. nystatin (MYCOSTATIN, NILSTAT) 500,000 unit tab Take 2 tablets by mouth twice daily. PHEXXI 1.8-1-0.4 % gel INSERT ONE APPLICATORFUL VAGINALLY IMMEDIATELY OR UP TO ONE HOUR BEFORE EACHEPISODE OF VAGINAL INTERCOURSE lasmiditan (REYVOW) 100 mg tablet Take 1 tablet by mouth once daily as needed cyproheptadine (PERIACTIN) 4 mg tablet Take 1 tablet by mouth three times daily as needed. fremanezumab-vfrm (AJOVY AUTOINJECTOR) 225 mg/1.5 mL auto-injector Inject 4.5 mL subcutaneously every 3 months. valACYclovir (VALTREX) 1 gram Take 1 tablet by mouth once daily. DULoxetine (CYMBALTA) 60 mg capsule Take 1 capsule by mouth once daily. ondansetron (ZOFRAN) 4 mg tablet Take 1 tablet by mouth every 8 hours as needed for nausea/vomiting. Magnesium Citrate 150mg (Pure Encapsulations) Take 4 capsules daily. riboflavin, vitamin B2, (VITAMIN B-2) 100 mg tab Take 4 tablets by mouth once daily. coenzyme Q10 (COQ-10) 100 mg cap capsule Take 1 capsule by mouth twice daily. vitamin D3-folic acid 5,000 unit- 1 mg tab Take 5,000 Units by mouth once daily. multivitamin tablet Take 1 tablet by mouth once daily. No current facility-administered medications for this visit. ALLERGIES Allergen Reactions Dilaudid [Hydromorp* Itching Fentanyl Itching Sulfa (Sulfonamide * Rash ASSESSMENT/PLAN PCOS Familial hyperlipidemia with LDL chol >190 m/dL BMI 30 abnormal weight gain with steroid Now plateaued Insulin resistance Possibly fatty liver given given high fasting glucose Liver US Off label GLP1-agonist discussed S/e pancreatitis, MTC was seen in rodent Ozempic, needs prior auth Start 0.25 mg weekly x 4 weeks then go up to 0.5 mg weekly Hot flashes, no diarrhea, + redness Will order labs Cymbalta - can cause flushing and diaphoresis Desire for : not discussed yet Regularizing periods: regular Androgenic features: said did not want meds but at end of visit, was reconsidering. Can discuss spironolactone subsequent visits Cardiovascular/diabetes risk: Familial hyperlipidemia, saw cardiology, statin discussed already Low free T4 might be from prednisone, repeat later on Thyroid exam at visit Labs/Imaging/Consults/Scripts: free T4 in 3 mo Liver US Work up for flushing if not med related (R63.5) Abnormal weight gain (primary encounter diagnosis) Comment: Plan: semaglutide (OZEMPIC) 0.25 mg or 0.5 mg(2 mg/1.5 mL) pen (R23.2) [place] Comment: Plan: CALCITONIN BLOOD, HIAA-5 QUANT 24H UR, CREATININE 24 HR UR (Z68.30) BMI 30.0-30.9,adult Comment: Plan: US ABD RT UPPER QUADRANT (R79.89) Abnormal thyroid blood test Comment: Plan: T4 FREE/FREE THYROX (E88.81) Insulin resistance Comment: Plan: US ABD RT UPPER QUADRANT (R73.01) Impaired fasting glucose Comment: Plan: US ABD RT UPPER QUADRANT Follow-up: 3 months in-person me or anyone/main or region near her Patient to contact me/my office: if has not received a note from me summarizing your lab or imaging within a week of your seeing/receiving results. 2. sooner than the recommended follow-up if with issues/concerns. 3. If not seeing lab/imaging orders prior to next visit See primary care provider and other specialists for issues not explained by the condition patient is seeing me for. Macie Dai MD, MPH October 05, 2022 11:53 AM documented in this encounterThe [facility]11-[facility]22 Miscellaneous Notes* Telephone Encounter - Maddie Moraes APRN.CNP - 10/03/2022 12:27 PM EDT Pt called in requesting labs. Maddie Moraes APRN.CNP documented in this encounterThe [facility]11-03-[facility]22 History of Present illness Narrative* Sue Concepcion MD - 10/03/2022 11:35 AM EDT Images from the original note were not included. [facility] Virtual Visit Follow up Encounter Last Visit: July Primary Problem List: ACTIVE PROBLEM LIST H/O Cervical Spine Surgery Chronic Neck Pain Hx of Neck Surgery Radiculopathy of Cervical Region Arm Numbness Left Clenching of Teeth Myofascial Muscle Pain Centric Occlusion Maximum Intercuspation Discrepancy Arthralgia of Left Temporomandibular Joint Hyponatremia Acute Metabolic Encephalopathy Migraine Headache With Aura Water Intoxication Chronic TMJ Pain Inflammatory Arthritis Somatic Dysfunction of Rib Somatic Dysfunction of Spine, Thoracic Somatic Dysfunction of Spine, Cervical Acute Right-Sided Thoracic Back Pain Neck Pain Chronic Migraine Without Aura, With Intractable Migraine, So Stated, With Status Migrainosus Right Hip Impingement Syndrome Interval Headache Hx: Pain today:0 Questions or concerns to address today: She is doing well Never received She feels that ajovy every 3 months, metoprolol and methocarbomol Symphoni for autimmune disorders # of headache days/month 10 with only 5 severe # of headache free days/ month 20 Current Preventive:ajovy and metoprolol Current Abortive:Reyvow Frequency of Abortives: 3 reyvow and 2 cambia Medications effective yes Risk Factors for chronification:previous CM, Autoimmune disorders New Health Issues: hip issue , ? thyroid disease Red Flags:none Prior Therapies Duration of Use Dose Reason for Discontinuation Other Therapies Nerve blocks Physical therapy Analgesic Diclofenac (Voltaren, Cataflam, Cambia) Indomethacin (Indocin) no benefit Ketorolac (Toradol) no benefit Anti-Convulsant Topiramate (Topamax, Trokendi XL, Qudexy) no benefit Anti-Depressant and Antipsychotic Duloxetine (Cymbalta) Nortriptyline (Pamelor, Aventyl) Antiemetics zofran Anti-Migraine Rizatriptan (Maxalt) ineffective Sumatriptan (Imitrex, Sumavel) ineffective Blood Pressure Propranolol (Inderal) initial benefit MABs Erenumab (Aimovig) Fremanezumab (Ajovy) GEPANTS Rimegepant (Nurtec) no benefit Botulinum Toxin Onabotulimum Toxin A (Botox), Onabotulinum Toxin A (Botox) 6 years loss of efficacy Muscle Relaxer Baclofen (Lioresal) ineffective Cyclobenzaprine (Flexeril) ineffective Supplements CoQ10 Magnesium Riboflavin 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 NAC 600mg [address] ct[address] (Pure Encapsulations) Take 1 capsule twice daily, between meals. Atrantil One (2) capsule per day up to 3 x's a day with food. nystatin (MYCOSTATIN, NILSTAT) 500,000 unit tab Take 2 tablets by mouth twice daily. PHEXXI 1.8-1-0.4 % gel INSERT ONE APPLICATORFUL VAGINALLY IMMEDIATELY OR UP TO ONE HOUR BEFORE EACHEPISODE OF VAGINAL INTERCOURSE metoprolol succinate ER (TOPROL XL) 25 mg 24 hr tablet Take 1 tablet by mouth daily at bedtime. methocarbamol (ROBAXIN) 750 mg tablet Take 1 tablet by mouth four times daily. lasmiditan (REYVOW) 100 mg tablet Take 1 tablet by mouth once daily as needed cyproheptadine (PERIACTIN) 4 mg tablet Take 1 tablet by mouth three times daily as needed. fremanezumab-vfrm (knowNormalOVLobera Cigars AUTOINJECTOR) 225 mg/1.5 mL auto-injector Inject 4.5 mL subcutaneously every 3 months. valACYclovir (VALTREX) 1 gram Take 1 tablet by mouth once daily. DULoxetine (CYMBALTA) 60 mg capsule Take 1 capsule by mouth once daily. ondansetron (ZOFRAN) 4 mg tablet Take 1 tablet by mouth every 8 hours as needed for nausea/vomiting. Magnesium Citrate 150mg (Pure Encapsulations) Take 4 capsules daily. riboflavin, vitamin B2, (VITAMIN B-2) 100 mg tab Take 4 tablets by mouth once daily. coenzyme Q10 (COQ-10) 100 mg cap capsule Take 1 capsule by mouth twice daily. vitamin D3-folic acid 5,000 unit- 1 mg tab Take 5,000 Units by mouth once daily. multivitamin tablet Take 1 tablet by mouth once daily. No current facility-administered medications for this visit. ALLERGIES Allergen Reactions Dilaudid [Hydromorp* Itching Fentanyl Itching Sulfa (Sulfonamide * Rash REVIEW OF SYSTEMS: Review of system : unchanged from the previous visit (sleep patterns, mood, energy, appetite, stress, exercising). HEADACHE SCORES: Headache Questions 06/05/2022 07/18/2022 10/01/2022 ER visits since last office visit: 2 0 0 Hospital stays since last office visit 0 0 0 Limited ADLs in the last month: 15 20 10 Days missed from work or school in the last month: 0 0 0 Days headache pain free in the last month: 5 0 20 Days per month with ALL of the following symptoms - decreased productivity, light sensitivity and nausea: 7 10 5 Initial improvement of headache after botox injection at last visit: No change Not applicable, I did not have a botox injection at my last visit Not applicable, I did not have a botox injection at mylast visit Days per month with mild/moderate face pain: - - - Days per month with severe face pain: - - - Days per month free from face pain: - - - PRN medication usage in the last month: 10 10 7 Patient impression of improvement since last visit: Minimally worse No change Much improved HIT-6 06/05/2022 07/18/2022 10/01/2022 HIT-6 - - - HIT-6 64 (Severe impact) 67 (Severe impact) 64 (Severe impact) LETICIA - 2/7 SCORES 07/05/2022 07/18/2022 10/01/2022 LETICIA-2 Score 0 0 0 LETICIA-7 Score 0 - - Pain Disability Index 03/29/2021 05/22/2021 PDI Score 45 22 Migraine Specific QOL - Higher scores indicate better HRQL 06/05/2022 07/18/2022 10/01/2022 Role Function-Restrictive Transformed Score (range: 0-100) 40 40 60 Role Function-Preventive Transformed Score (range: 0-100) 45 50 70 Emotional Function Transformed Score (range: 0-100) 40 33.33 60 PHQ-9 05/27/2022 07/18/2022 10/01/2022 Score 6 7 6 PHYSICAL EXAM: Modified for [employer] platform GEN: Alert. NAD. Normal affect. Cooperative. RESP: Breathing at normal rate/ does not appear to have respiratory distress with speaking NEUROLOGICAL: MENTAL STATUS: A+O x 3. Attentive. Thought process and content unremarkable. Follows commands appropriately. Speech fluent. Pain behaviours:none CN: III, IV, : EOMI. No ptosis present. VII: Face symmetric. VIII: Hearing grossly intact Impression: Chronic migraine reverted to low frequency EM Comorbid disorders: autoimmune disorders Plan: Continue present prophylactic and rescue medication I spent a total of 15 minutes on the date of the service which included preparing to see the patient, [id number] patient care, completing clinical documentation, obtaining and/or reviewing separately obtained history, performing a medically appropriate examination, counseling and educating the pat ient/family/caregiver, and ordering medications, tests, or procedures. Sue Concepcion MD This document has been created with the use of voice recognition technology. It may contain inaccuracy, misspelling, inaccurate syntax or word sense. Answers submitted by the patient for this visit: Headache Questionnaire (Submitted on 10/01/2022) How many days of work or school have you missed due to headaches in the last month? : 0 In the last month, how many headache days did you experience ALL of the following symptoms: decreased productivity, light sensitivity and nausea?: 5 How many days have you been completely free of headache pain in the last month? : 20 documented in this encounterThe [facility]11-03-[facility]22 History of Present illness Narrative* Anahy Bowers, RT(R) - 10/03/2022 9:00 AM EDT Radiology Service Progress Note PATIENT NAME: Kira Adhikari DATE OF SERVICE: October 03, 2022 TIME: 9:37 AM PATIENT IDENTITY VERIFICATION COMPLETED USING TWO (2) IDENTIFIERS: Name and Date of confirmedby patient verbally. FALL SCREENING: Has the patient had 2 falls in the last year or 1 fall with injury or currently using an Ambulatory Assistive Device (Walker, Cane, Wheelchair, Crutches, etc.)? No PATIENT GENDER DATA: Female. status: : No status: NO. PATIENT RELEVANT IMPLANT DATA REVIEWED: Yes RADIOLOGY DEPARTMENT: MR; Exam(s) Completed: Lower MSK: Hip, right PERIPHERAL IV DATA: Not applicable SIGNED BY: RT Cindy(R) October 03, 2022 9:37 AM documented in this encounterThe [facility]10-14-2022 Instructions* Patient Instructions* Nancy Del Valle APRN.MILLED RICE BROKER - 09/13/2022 3:21 PM EDT Plan and Lifestyle Prescription Plan/Instructions/Resources: Reviewed labs and plan with patient. Discussed opportunities to communicate with myself and team ifneeded before next appointment, ie, MyChart, telephone, virtual visits. CFM labs For gut healing: nystatin (MYCOSTATIN, NILSTAT) 500,000 unit tab Sig: Take 2 tablets by mouth twice daily. Dispense: 120 tablet Refill: 2 Atrantil -if bloating persists Sig: One (2) capsule per day up to 3 x's a day with food. For PCOS: Berberine 500 (Lorena) Sig: Take 1 capsule by mouth three times daily. inositol powder Si scoops, 3 times daily with or between meals NAC 600mg 90 ct. (Pure Encapsulations) Sig: Take 1 capsule twice daily, between meals. Book - The Glucose Revolution by Deb Spann- there are good suggestions about how to keep glucose and insulin levels steady which affect energy, mood, hormones and chronic disease. Medications/Supplements Recommended: Medication orders placed this encounter Atrantil Sig: One (2) capsule per day up to 3 x's a day with food. Berberine 500 (Lorena) Sig: Take 1 capsule by mouth three times daily. inositol powder Si scoops, 3 times daily with or between meals NAC 600mg 90 ct. (Pure Encapsulations) Sig: Take 1 capsule twice daily, between meals. nystatin (MYCOSTATIN, NILSTAT) 500,000 unit tab Sig: Take 2 tablets by mouth twice daily. Dispense: 120 tablet Refill: 2 I recommend the supplements from the [facility] Online Store at [email or web address] as we have thoroughly evaluated the research and use only highest quality supplements. Please use code: functional. Future Plans: Follow up: Please schedule a follow up visit with the following Caregivers: Provider: 10weeks LIFESTYLE PRESCRIPTION Functional Nutrition: Per real estate transaction coordinator Sleep: Sleep goal for most adults is a minimum of 7-9 hours nightly. Exercise Prescription: Numerous studies confirm the benefits of regular moderate aerobic exercise (walking, swimming, elliptical machine, cycling, etc.) for 30 min 5 days per week (150 min goal). Stress Management: 1) Please look into this Heart Rate Variability BioFeedback Tool (www.heartmath.org). 2) A regular, daily meditation practice of at least 15-20 minutes will change your brain--as well as your genes! Behavioral Health Therapist: If I recommended counseling or individual therapy, please schedule an individual appointment with our Functional Medicine Behavioral Health Therapist after your visit today. The Behavioral Health Therapist helps patients identify and understand feelings and behaviors, experience the process of making positive change, and gain healthy coping skills. Health Coaching: Please consider scheduling with our [facility] health coaches for a phone or virtual visit for accountability, goal setting and help with behavior supervisor policy change clerks the next 6-8 weeks to be successful with your goals. [phone]. Smart phone apps to begin a meditative practice: Headspace (free for first 10 days) Insight Meditation Timer- (Free)-Great all-around rosa to use for guided meditations of many different types and lengths or just to use as a tool to time and track your meditation practice. This is myabsolute favorite! Calm- (Free) Walking Meditations-($1.99)- Get your walk AND meditation done together. A good way to start out for individuals who feel they just can't sit still to begin a meditative practice. During the next 6-8 weeks you'll be working on your diet plan discussed with our real estate transaction coordinator, allowing for gentle detoxification and decreasing inflammation - while we are gathering your lab resultsand combining those with your complete history to formulate a very personalized treatment plan. LAB results: Due to the complexity of the testing performed, we are not able to review labs via 6APTt or over the phone, but please know, if any of your labs are critical we will contact you. Otherwise, we will review all your labs at your next visit. We will go over a lot of information during your follow up visit - so please be well-rested and youmay want to bring someone with you, if possible. Also make sure to schedule with the real estate transaction coordinator (this will not happen automatically) as you did with your first visit so that she can review nutritional aspects of your treatment plan. By your 3rd visit, as things are improving, we will likely transition you to one of our very capable Certified Nurse Practitioners/Physician Assistants for further follow-up. Potential future labs: Any Tony labs ordered take about 4 weeks to return. Do them as soon as possible so that we have the results before your next appointment. You can access them on the [facility] website and it can be beneficial if you review them prior to your next visit. www.[email or web address].net. Read about NutrEval if this was ordered. *Nancy Del Valle APRN.ARELY documented in this encounterThe [facility]10-14-2022 History of Present illness Narrative* Nancy Del Valle APRN.CNP - 09/13/2022 2:30 PM EDT Follow-up Visit - Virtual Patient: Kira Adhikari There is no height or weight on file to calculate BMI. Resting Metabolic Rate: 1518 Waist measurement: No waist measurement recorded. BP: ALLERGIES Allergen Reactions Dilaudid [Hydromorp* Itching Fentanyl Itching Sulfa (Sulfonamide * Rash Current Outpatient Medications on File Prior to Visit Medication Sig PHEXXI 1.8-1-0.4 % gel INSERT ONE APPLICATORFUL VAGINALLY IMMEDIATELY OR UP TO ONE HOUR BEFORE EACHEPISODE OF VAGINAL INTERCOURSE metoprolol succinate ER (TOPROL XL) 25 mg 24 hr tablet Take 1 tablet by mouth daily at bedtime. methocarbamol (ROBAXIN) 750 mg tablet Take 1 tablet by mouth four times daily. lasmiditan (REYVOW) 100 mg tablet Take 1 tablet by mouth once daily as needed cyproheptadine (PERIACTIN) 4 mg tablet Take 1 tablet by mouth three times daily as needed. fremanezumab-vfrm (AJOVY AUTOINJECTOR) 225 mg/1.5 mL auto-injector Inject 4.5 mL subcutaneously every 3 months. valACYclovir (VALTREX) 1 gram Take 1 tablet by mouth once daily. valACYclovir (VALTREX) 1 gram Take 2 tablets by mouth twice daily. Etanercept (ENBREL SURECLICK) 50 mg/mL (1 mL) Inject 50mg (1 pen) under the skin one time each week. DULoxetine (CYMBALTA) 60 mg capsule Take 1 capsule by mouth once daily. ondansetron (ZOFRAN) 4 mg tablet Take 1 tablet by mouth every 8 hours as needed for nausea/vomiting. Magnesium Citrate 150mg (Pure Encapsulations) Take 4 capsules daily. riboflavin, vitamin B2, (VITAMIN B-2) 100 mg tab Take 4 tablets by mouth once daily. coenzyme Q10 (COQ-10) 100 mg cap capsule Take 1 capsule by mouth twice daily. vitamin D3-folic acid 5,000 unit- 1 mg tab Take 5,000 Units by mouth once daily. multivitamin tablet Take 1 tablet by mouth once daily. No current facility-administered medications on file prior to visit. 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 PAST SURGICAL HISTORY Procedure Laterality Date CONIZATION OF CERVIX, LEEP NECK SURGERY HX 08/19/2016 Left C7 foraminotomy, Left C6-7 diskectomy - w/ benefit though continues to have pain (left side ofneck, shooting pains in arm, left wrist and distal numbness) PAST SURGICAL HISTORY OF at age of 6 years left inguinal hernia repair PAST SURGICAL HISTORY OF Tonsillectomy Social History Tobacco Use Smoking status: Never Smokeless tobacco: Never Vaping Use Vaping Use: Never used Substance Use Topics Alcohol use: Not Currently Comment: none since 2019 Drug use: No Functional Medicine Timeline MSQ: Patient Entered Questionnaire PROMIS Scale T-Scores -- HIGHER SCORES BETTER PROMIS Global Health - (T-Scores - the mean of general population = 50. Five points is a clinicallymeaningful difference.) 09/03/2022 09/03/2022 09/11/2022 Physical T-Score 44.9 44.9 42.3 Mental T-Score 48.3 48.3 45.8 Depression Screening: PHQ-9 05/27/2022 05/27/2022 07/18/2022 Score 6 6 7 PHQ-9 Self Harm 02/13/2022 05/27/202207/1807/18/2022 Question 9 Not at all Not at all Not at all PHQ-9 Self-Harm (Item 9) response options: 0 Not at all 1 Several days 2 More than half the days 3 Nearly every day PHQ-9 Levels: 0-4 Minimal depression 5-9 Mild depression 10-14 Moderate depression 15-19 Moderately severe depression 20- Severe depression September 12, 2022 Nancy Del Valle APRN.ARELY Subjective: Goals: Update progress Finally got the rifaximin. Completed it a week ago. Now has a significant reduction in gas, GERD and bloating. Has had foul smelling stool since childhood and that is better. BM - better, but still skips a day and can be hard. Stopped supplements during treatment Fatigue is coming back as well as brain fog Having severe hot flashes - every day, multiple times. Increased acne and facial hair Started metoprolol, methocarbanol, simphoni infusions Migraines and arthritis is better managed. Hot flashes happened before hot flashes. Menses monthly Used CGM - fasting 95-110 Saw music store manager last week. Reintroducing from low FODMAP Supplements - quercetin, tumeric May 27, 2022 Nancy Del Valle APRN.MILLED RICE BROKER Subjective: Goals: Review Trio Test Feels badly, switched from Humira to Enbrel and fatigue is worse. Switched to due to flares on Humira. Has been on Enbrel for 5 weeks Bloating Diet - low sulfur BM - every 3 days Supplements Magnesium - stopped CoQ10, quercetin, tumeric, Vit D, [place] 3's, B2, MVI, megasporebiotic - stopped January 04, 2022 Nancy Del Valle APRN.ARELY Subjective: Goals: Review labs Update progress Started on Humira for arthritis in Oct, has had quite a few steroids over the last 6 months. Pain is a lot better. Very sensitive to gluten and joints are very inflammed. Has been off steroids in Oct. Stopped LDN. Fatigue resolved within 1 week of Humira. Brain fog. Has sulfur intolerance. 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 Oct 16 - received a 3 day old infant that they are planning to adopt BM - daily, formed Diet - Renew, GF. Has info for low sulfur. Supplements - magnesium, CoQ10, quercetin, tumeric, Vit D, [place] 3's, B2, MVI, megasporebiotic Subjective: 10/02/2021 Robbin Yadav MD Unable to do labs Knows she has gluten intolerance. - severe bloating and swollen in joints and pain So now off gluten Autoimmune inflammatory arthritis - Steroids for about 3 weeks. Renew Diet- G/D/Grain free On MTX 30min aerobic with daughter It was good with peptobismal - now back to constipation- she is on mag citrate 600mg LDN 5mg June 29, 2021 Nancy Del Valle APRN.ARELY Subjective: Goals: Review GI Effects Update Doing better but hands and feet are really inflammed Had a root canal. Had to stop Plaquenil due to headaches and tremors. More inflammation - hands and feet, pain and brain fog Taking LDN 5 mg - not sure it is helping Sleep - unable to stay asleep. Good sleep hygiene. Gets 6-8 hours, Taking naps Diet - some gluten, some dairy, uncertain about where to go since reintroduction BM - hard stools every 1-4 days Supplements - magnesium citrate, meriva, quercetin, melatonin, Vit D, COQ10, Vit C, MVI April 04, 2021 Nancy Del Valle APRN.ARELY Subjective: Goals: Review labs Update Hospitalized 2 weeks ago for 3 days in ICU. Was seeing patients and had excruciating trigeminal neuralgia. Vomiting and was unable to walk. Confused. Doesn't remember anything. 3 office days and 1 is a 24 hour call and every 3rd weekend. Didn't cheat on diet at all and then had to eat hospital food. [place] really good in joints, energy and mental clarity after 4 weeks on the diet. Hyponatremia 119. Trigeminal neuralgia. Told she drank too much water. Adjusted indomethicin Hands are swollen again, hip pain, brain fog and fatigue after adding dairy, gluten, soy and eggs. Sleep - not as good, stopped melatonin. Wants recommendation BM - daily, soft Supplement - Quercetin, Meriva, CoQ10, riboflavin, [place] 3's, Vit C, MVI, mag citrate, Vit D, zinc,CBD oil LDN - taking 5 mg Started baclofen and nexium 01-10-21 Paige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 HISTORY OF Tonsillectomy ALLERGIES Allergen Reactions Dilaudid [Hydromorp* Itching Fentanyl Itching Sulfa (Sulfonamide * Rash MEDICATIONS: Current Outpatient Medications Medication Sig metoprolol succinate ER (TOPROL XL) 25 mg 24 hr tablet Take 1 tablet by mouth daily at bedtime. methocarbamol (ROBAXIN) 750 mg tablet Take 1 tablet by mouth four times daily. lasmiditan (REYVOW) 100 mg tablet Take 1 tablet by mouth once daily as needed cyproheptadine (PERIACTIN) 4 mg tablet Take 1 tablet by mouth three times daily as needed. fremanezumab-vfrm (knowNormalOVLobera Cigars AUTOINJECTOR) 225 mg/1.5 mL auto-injector Inject 4.5 mL subcutaneously every 3 months. valACYclovir (VALTREX) 1 gram Take 1 tablet by mouth once daily. valACYclovir (VALTREX) 1 gram Take 2 tablets by mouth twice daily. Etanercept (ENBREL SURECLICK) 50 mg/mL (1 mL) Inject 50mg (1 pen) under the skin one time each week. DULoxetine (CYMBALTA) 60 mg capsule Take 1 capsule by mouth once daily. ondansetron (ZOFRAN) 4 mg tablet Take 1 tablet by mouth every 8 hours as needed for nausea/vomiting. Magnesium Citrate 150mg (Pure Encapsulations) Take 4 capsules daily. riboflavin, vitamin B2, (VITAMIN B-2) 100 mg tab Take 4 tablets by mouth once daily. coenzyme Q10 (COQ-10) 100 mg cap capsule Take 1 capsule by mouth twice daily. vitamin D3-folic acid 5,000 unit- 1 mg tab Take 5,000 Units by mouth once daily. multivitamin tablet Take 1 tablet by mouth once daily. Diclofenac Potassium (CAMBIA) 50 mg pwpk Take 1 Packet by mouth as needed for migraine headache. Can repeat dose in 2 hours, no more than 2 doses per day, or 2 days per week (Patient not taking: Reported on 08/07/2022) Current Facility-Administered Medications Medication Dose Route Frequency perflutren lipid microspheres 1.3 mL in NaCl (PF) 0.9% 10 mL injection (DEFINITY) INTRAVENOUS DIRECTED PRN sodium chloride 0.9 % (flush) 10 mL (BD POSIFLUSH) 10 mL INTRAVENOUS DIRECTED PRN FAMILY HISTORY: paternal aunt- currently undergoing RA evaluation, maternal uncles x2, maternal cousin-ankylosing spondylitis SOCIAL HISTORY: Lives in [place] with spouse with 2 kids, 10 yo and 13 yo (planning to foster to adopt). On 11/15/21, got a Kourtney to foster who she is on track to adopt (also adopting the biological mother who has intellectual difficulty). 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 Tobacco use: None Alcohol use: None since Aug Drug use: None REVIEW OF SYSTEMS: reviewed 09/13 systems, as above PHYSICAL EXAM: VITALS: Blood pressure 108/74, pulse 78, temperature 36.4 C (97.6 F), temperature source Temporal, height 165.1 cm (5' 5), weight 83 kg (183 lb), last menstrual period 08/01/2022. CONSTITUTIONAL: Well-appearing, in NAD. SKIN: No rash. No alopecia. No sclerodactyly, calcinosis, telangiectasias, digital ulcers, or skin thickening. EYES: No scleral icterus or conjunctivitis ENT and Mouth: External ears normal. Nares normal. RESPIRATORY: Normal breath sounds, clear to auscultation. CARDIOVASCULAR: Regular rate and rhythm, no murmurs or rubs EXTREMITIES/LYMPH: No edema bilaterally NEURO: Awake, alert and oriented, normal gait MUSCULOSKELETAL: JOINT APPEARANCE: No erythema or warmth of any upper or lower extremity joint. RANGE OF MOTION: Able to fully close fists and curl fingers bilaterally. SWOLLEN JOINTS/SYNOVITIS: No synovitis of any joint. TENDER JOINTS: Tenderness to palpation of the bilateral wrists, MCPs, PIPs and DIPs *January Widespread Pain Index: 17 (0-19) Symptoms Severity Scale: 8 (0-12) WPI>7 and SS Scale>5 OR WPI 3-6 and SS Scale >9 consistent with fibromyalgia LABORATORY: Component Latest Ref Rng & Units 07/03/2022 WBC 3.70 - 11.00 k/uL 7.70 RBC 3.90 - 5.20 m/uL 4.12 Hemoglobin 11.5 - 15.5 g/dL 13.2 Platelet Count 150 - 400 k/uL 203 Calcium 8.5 - 10.2 mg/dL 9.3 Bilirubin, Total 0.2 - 1.3 mg/dL 0.2 Alkaline Phosphatase 34 - 123 U/L 51 AST 13 - 35 U/L 24 ALT 7 - 38 U/L 21 Glucose 74 - 99 mg/dL 108 (H) BUN 7 - 21 mg/dL 11 Creatinine 0.58 - 0.96 mg/dL 0.74 Sodium 136 - 144 mmol/L 137 Potassium 3.7 - 5.1 mmol/L 3.8 Chloride 97 - 105 mmol/L 103 CO2 22 - 30 mmol/L 21 (L) Anion Gap 9 - 18 mmol/L 13 eGFR >=60 mL/min/1.73m 107 Component Latest Ref Rng & Units 07/17/2022 TB Nil <=8.00 IU/mL 0.01 TB1 Ag minus Nil <0.35 IU/mL 0.05 TB2 Ag minus Nil <0.35 IU/mL 0.05 TB Result Negative Mitogen minus Nil >=0.50 IU/mL >9.99 CRP <0.9 mg/dL WSR 0 - 20 mm/hr HLA-B27 DNA Result Negative Component Latest Ref Rng & Units 11/01/2020 Sm Antibody <1.0 AI <0.2 BRUSH FILLER HAND Antibody <1.0 AI 0.2 SSA Antibody <1.0 AI <0.2 SSB Antibody <1.0 AI <0.2 Centromere Ab <1.0 AI <0.2 Scleroderma Ab, IgG <1.0 AI <0.2 Debbie 1 Antibody <1.0 AI <0.2 Ribosomal BRUSH FILLER HAND <1.0 AI <0.2 Chromatin Antibody <1.0 AI <0.2 SEA by EIA, Qual Negative Negative SEA by EIA OD Ratio 0.2 CCP Antibody, IgG <20 Units <15 Rheumatoid Factor <16 IU/mL <10 Anti-SSA <1.0 AI <0.2 Anti-SSB <1.0 AI <0.2 CRP <0.9 mg/dL 0.4 CK 42 - 196 U/L 136 Vitamin D 25 Hydroxy 31.0 - 80.0 ng/mL 34.8 Endomysial Ab, IgA <1:10 <1:10 Component Latest Ref Rng & Units 01/23/2021 Gliadin Ab, IgA <20 Units 7 Gliadin Ab, IgG <20 Units 2 Transglutaminase Ab, IgG <20 Units 3 Transglutaminase Ab, IgA <20 Units 4 Component Latest Ref Rng & Units 02/03/2020 Sm Antibody <1.0 AI <0.2 BRUSH FILLER HAND Antibody <1.0 AI 0.2 SSA Antibody <1.0 AI <0.2 SSB Antibody <1.0 AI <0.2 Centromere Ab <1.0 AI <0.2 Scleroderma Ab, IgG <1.0 AI <0.2 Debbie 1 Antibody <1.0 AI <0.2 Ribosomal BRUSH FILLER HAND <1.0 AI <0.2 Chromatin Antibody <1.0 AI <0.2 SEA Negative Negative SEA Titer Negative Negative SEA Pattern Not applicable for negative result. IgA 78 - 391 mg/dL 289 Transglutaminase Ab, IgA <20 Units 4 Interpretation (Celiac Screen) No serologic evidence of celiac disease. No serologic evidence of celiac disease. UltraSens C-Reactive Protein <3.1 mg/L 1.6 WSR 0 - 20 mm/hr 8 Rheumatoid Factor <16 IU/mL <10 STUDIES: *Jul xray SI joints- Findings concerning for right hip cam type impingement. *January xray hands/SI joints- unremarkable *Jan MRI brain- No evidence for focal acute brain ischemia, mass effect, abnormal enhancement, or mastoid/middle ear inflammatory disease. No abnormal enhancement involving lower cranial nerves. Gross brain volume and morphology is within expected limits for age. Based on the axial T2 flow void pattern, proximal intracranial arterial vasculature, major cortical draining veins, and dural venous sinuses are patent. Concordant findings on the post gadolinium scans. *Oct MRI C-spine- Postop changes. Mild left bony foraminal stenosis at C6-7. Suspicion of mild epidural scar formation in the left C7-T1 neural foramen from a prior foraminotomy. No evidence of recurrent disc protrusion. IMPRESSION and PLAN: 1. Inflammatory arthritis: With steroid-responsive wrist, MCP and PIP pain along with fatigue, synovitis of the MCPs and PIPs in the past and negative serologies. Also with steroid responsive back/SIjoint pain (separate from L hip CAM pain). Sulfa allergy. Has tried: HCQ (dizziness and tremors), MTX (ineffective), Humira (lost efficacy despite initial significant improvement), and enbrel (ineffective). Simponi IV with improvement (first dose in Jul) - Continue simponi 2mg/kg/dose (approved until 11/30/22), [facility] orders for Aug, Oct and Dec signed 2. Migraine, chronic pain and cervical spine pain: Separate issues from the inflammatory arthritis - Continue PT, PCP, functional medicine and neurology management 3. Prior history of fibromyalgia: Current symptoms are not consistent with remote fibromyalgia presentation which resolved with cymbalta x2 years and then never recurred - Continue monitoring 4. CAM deformity/L hip pain: Mechanical issue separate from inflammatory arthritis - To see Dr. De Leon in ortho 5. General health maintenance: - Doesn't plan on getting covid vaccine, has a adventist exemption - Advised to continue follow-up with PCP for routine health maintenance and malignancy screening Follow-up in 3 & 9 months with Wisam Chung and 12 months with me or sooner if needed. Patient was instructed to call if any questions or concerns. Thank you for allowing me to participate in the care of your patient. Ajit Torre MD documented in this encounterThe [facility]09-[facility] History of Present illness Narrative* Emre De Leon MD - 08/02/2022 3:12 PM EDT I have reviewed the history and physical obtained by my resident or fellow. HPI explored in detail with the patient. Pt was seen by me and king findings were confirmed. I agree with the findings as documented. I personally participated the patient's assessment and treatment recommendations. Emre De Leon MD * Varghese Lam MD - 08/02/2022 11:48 AM EDT Images from the original note were not included. DEPARTMENT OF ORTHOPAEDICS Consultation as a request of Dr. Torre. Chief Complaint: Right hip pain HISTORY OF PRESENT ILLNESS: This is a pleasant 36 year old female, who presents today with a chief complaint of right hip pain.The pain has been present for at least 1 year and has progressively worsened over the last 2 monthswithout incident although she has recently begun working out, deep squats, etc. She is currently being treated for inflammatory arthritis by her Personal Lines Advisor and just recently started Enbrel. In work up for possible ankylosing spondylitis, she was noted to have a cam lesion and referred for further management. Injury/ Trauma: Denies PAIN EVALUATION 08/02/2022 1124 Pain Level: 3 Pain Location: Hip-Right Description: Aching;Dull Duration Amount of Time: 1 Duration Units: Months Frequency: Intermittent Intervention/Comfort measure: Reposition Pain location: anterior, posterior, and lateral Duration of pain/ symptoms: 1 year Frequency: constant Intensity: moderate Quality: dull and aching She Reports nocturnal pain. She denies numbness, tingling, or electric shocks. She denies popping, clicking, catching, locking, grinding, instability, buckling, or giving way. 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 [employer] Activity level: recreational, sport/activity: none 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 30 tablet 5 methocarbamol (ROBAXIN) 750 mg tablet Take 1 tablet by mouth four times daily. 120 tablet 5 lasmiditan (REYVOW) 100 mg tablet Take 1 tablet by mouth once daily as needed 8 tablet 5 cyproheptadine (PERIACTIN) 4 mg tablet Take 1 tablet by mouth three times daily as needed. 270 tablet 3 fremanezumab-vfrm (AJOVY AUTOINJECTOR) 225 mg/1.5 mL auto-injector Inject 4.5 mL subcutaneously every 3 months. 4.5 mL 3 valACYclovir (VALTREX) 1 gram Take 1 tablet by mouth once daily. 90 tablet 3 valACYclovir (VALTREX) 1 gram Take 2 tablets by mouth twice daily. 20 tablet 2 Etanercept (ENBREL SURECLICK) 50 mg/mL (1 mL) Inject 50mg (1 pen) under the skin one time each week. 12 mL 3 Diclofenac Potassium (CAMBIA) 50 mg pwpk Take 1 Packet by mouth as needed for migraine headache. Can repeat dose in 2 hours, no more than 2 doses per day, or 2 days per week 18 Packet 3 DULoxetine (CYMBALTA) 60 mg capsule Take 1 capsule by mouth once daily. 90 capsule 3 ondansetron (ZOFRAN) 4 mg tablet Take 1 tablet by mouth every 8 hours as needed for nausea/vomiting. 30 tablet 3 Magnesium Citrate 150mg (Pure Encapsulations) Take 4 capsules daily. riboflavin, vitamin B2, (VITAMIN B-2) 100 mg tab Take 4 tablets by mouth once daily. coenzyme Q10 (COQ-10) 100 mg cap capsule Take 1 capsule by mouth twice daily. vitamin D3-folic acid 5,000 unit- 1 mg tab Take 5,000 Units by mouth once daily. multivitamin tablet Take 1 tablet by mouth once daily. Current Facility-Administered Medications Medication Dose Route Frequency Provider Last Rate Last Admin perflutren lipid microspheres 1.3 mL in NaCl (PF) 0.9% 10 mL injection (DEFINITY) INTRAVENOUS DIRECTED PRN David Kilgore DO sodium chloride 0.9 % (flush) 10 mL (BD POSIFLUSH) 10 mL INTRAVENOUS DIRECTED PRN David Kilgore, DO ALLERGIES Allergen Reactions Dilaudid [Hydromorp* Itching Fentanyl Itching Sulfa (Sulfonamide * Rash FAMILY HISTORY Problem Relation Age of Onset Hyperlipidemia Mother baseline TC 300's, smoker Obesity Father Hyperlipidemia Father Hypertension Father Social History Tobacco Use Smoking status: Never Smokeless tobacco: Never Vaping Use Vaping Use: Never used Substance Use Topics Alcohol use: Not Currently Comment: none since 2019 Drug use: No REVIEW OF SYSTEMS: GENERAL: No weight loss, malaise or fevers HEENT: Negative for frequent or significant headaches, No changes in hearing or vision, no nose bleeds or other nasal problems NECK: Negative for lumps, goiter, pain and significant neck swelling RESPIRATORY: Negative for cough, hemoptysis, wheezing, COPD, dyspnea or shortness of breath CARDIOVASCULAR: Negative for chest pain, leg swelling, hypertension, CHF or palpitations GI: No nausea, vomiting, or diarrhea : No history of dysuria, frequency or incontinence MUSCULOSKELETAL: joint pain or swelling and inflammatory arthritis SKIN: Negative for lesions, rash, and itching HEMATOLOGY/LYMPHOLOGY: Negative for prolonged bleeding, bruising easily or swollen nodes ENDOCRINE: Negative for cold or heat intolerance, polyuria, polydipsia and goiter RADIOGRAPHS: right AP pelvis, Yun lateral and false view dated today revealed no acute processes, fractures, ordislocations. There is a cam lesion. Alpha angle 60. Center edge angle 33 Osseous and soft tissue structures within normal limits. Tonnis grade 0. X-Rays Reviewed and discussed. OTHER STUDIES: Not applicable PHYSICAL EXAM: [facility] 08/01/2022 General: Appears stated age, well built, in no apparent distress. Psychiatric: Mood and affect appropriate. Alert and oriented x 3 without evidence of abnormal respiratory effort. Musculoskeletal Exam: Gait normal, Posture: erect and normal. Exam: Right Left Single Leg Trendelenburg Negative Negative Hip flexion 100 100 IR 10 15 ER 55 55 Anterior impingement positive negative Dynamic labral stress positive negative DEYVI positive negative Posterior Impingement negative negative BONG negative negative Strength Right Left Supine HF 5/5 5/5 Upright HF 5/5 5/5 Adduction 5/5 5/5 Abduction 5/5 5/5 Tenderness with Palpation: Right Left Greater Troch Positive Negative Gluteus Medius Positive Negative Piriformis Positive Negative PROCEDURE: Not applicable IMPRESSION: 1. right Cam Femoral Acetabular Impingement. PLAN: 1. Medication: OTC NSAIDS/anaglesics as directed, in the absence of medical contraindication, with meals for 7-14 days. 2. Test(s)/Imaging/Referral(s): None. 3. Intervention: Graduated physical therapy program and If sypmtoms persist despite conservative treatment an MRI may be indicated. 4. Follow-up: Following above and Six weeks . Varghese Lam MD Sports Medicine/Orthopaedic Surgery documented in this encounterThe [facility]09-02-[facility] History of Present illness Narrative* Mellissa Oviedo RT(R) - 08/02/2022 10:30 AM EDT Radiology Service Progress Note PATIENT NAME: Kira Adhikari DATE OF SERVICE: August 02, 2022 TIME: 11:20 AM PATIENT IDENTITY VERIFICATION COMPLETED USING TWO (2) IDENTIFIERS: Name and Date of confirmedby patient verbally. FALL SCREENING: Has the patient had 2 falls in the last year or 1 fall with injury or currently using an Ambulatory Assistive Device (Walker, Cane, Wheelchair, Crutches, etc.)? No PATIENT GENDER DATA: Female. status: : No status: NO. PATIENT RELEVANT IMPLANT DATA REVIEWED: Not Applicable RADIOLOGY DEPARTMENT: General X-ray: Exam(s) Completed: Pelvis X-Ray: Pelvis with Hip Right and Wt.Bearing PERIPHERAL IV DATA: Not applicable SIGNED BY: RT Edison(R) August 02, 2022 11:20 AM documented in this encounterThe [facility]08-29-2022 History of Present illness Narrative* Trung Salazar OD - 07/29/2022 9:10 AM EDT 1. Regular astigmatism of both eyes Finalized spec rx with slight change 2. Dry eye syndrome of bilateral lacrimal glands Continue with artificial tears 2-3 times per day or as needed Patient has deferred dilation. The potential benefits as well as the risks of refusing the dilated fundus examination have been explained to the patient. Despite my recommendation, patient has refused consent to the dilation of their own free will and thus releases the [facility] and Mayelin Salazar OD from any future responsibility due to their own non-compliance. Trung Salazar OD July 29, 2022 9:10 AM documented in this encounterThe [facility]08-24-2022 History of Present illness Narrative* Beatriz Melissa PT - 07/24/2022 12:26 PM EDT Episode Visit Count: 33 Therapist That Will Oversee The Plan Of Care: Beatriz Melissa Start of Care Date: 01/13/20 Onset Date: 01/13/16 [facility] PHYSICAL THERAPY TREATMENT NOTE ASSESSMENT: Kira Adhikari tolerated the session with decreased symptoms and expected muscle soreness. She demonstrated difficulty with headaches, R hip pain, and RUE radicular symptoms. The patientwill continue to benefit from ongoing skilled physical therapy to progress toward set goals. PLAN FOR NEXT VISIT: Continue manual per symptoms. May progress to glute strengthening pending evaluation by Dr De Leon SUBJECTIVE: Patient Reason for Visit: Pt has had a pretty solid migraine, slight tingling down the right arm, and a lot of hip pain. Pain: Pain Pain Level: 8 Pain Location: Head - Left;Neck;Hip - Right Description: Sore;Sharp;Shooting;Radiating Frequency: Continuous OBJECTIVE MEASURES WITH LEVEL OF FUNCTION: R hip: DEYVI +; Scour +; FADDIR + TREATMENT: Manual Therapy: 1: Manual R hip belt distraction x20 reps into flexion, ER, and Abduction 2: STM to B cervical paraspinals, SCM, and upper traps with push to tolerance until symptoms subside Dry Needling: (1) 30 and 40 mm needle to B C4 to T1 paraspinals in clock technique plus TENS. 10 Hzleads 1 and 2 4.5 V, leads 3 and 4 4.5 V x20 min; (2) 25 mm needles to B suboccipitals with pistoning and periosteal pecking; (1) 50 mm needle to B upper traps with pistoning and fanning; (1) 25 mm needle to B SCM mm belly with pistoning, and (1) 25 mm needle to L SCM insertion on mastoid process with pistoning and periosteal pecking Skilled Intervention: Manual skills to improve joint mobility, ROM, and decrease pain. Utilized anatomy knowledge of the therapist, and assessment of patient's response to intervention. Billing Manual TherapyTreatment Minutes: 85 Total Treatment Time Minutes (timed/untimed): 85 Beatriz Melissa PT documented in this encounterThe [facility]08-22-2022 Miscellaneous Notes* Telephone Encounter - Taniya Cheung RN - 07/22/2022 11:36 AM EDT PA for Marcos completed and submitted to [facility] with supporting documentation ( ) Confirmation received.( - [phone]) Taniya Cheung RN * Telephone Encounter - Sue Concepcion MD - 07/18/2022 5:59 PM EDT Please obtain PA through [facility] Sue Concepcion MD * Telephone Encounter - Georgia Aparicio - 07/18/2022 5:12 PM EDT Ambulatory Pharmacy Prior Authorization Note Provider Intervention Required?: Yes- [facility] requires prior authorization to be submitted by the provider. [facility] Form Drug: Reyvow 100mg Additional Information: na Please fax completed paperwork to [phone] or email to [email or web address]. [facility] cannot process prior authorizations sent via CoverMyMeds. For questions relating to this submission, please contact [facility] [phone] documented in this encounterThe [facility]08-22-2022 History of Present illness Narrative* RT Corey(R) - 07/22/2022 8:40 AM EDT Radiology Service Progress Note PATIENT NAME: Kira Adhikari DATE OF SERVICE: July 22, 2022 TIME: 10:56 AM PATIENT IDENTITY VERIFICATION COMPLETED USING TWO (2) IDENTIFIERS: Name and Date of confirmedby patient verbally. FALL SCREENING: Has the patient had 2 falls in the last year or 1 fall with injury or currently using an Ambulatory Assistive Device (Walker, Cane, Wheelchair, Crutches, etc.)? No PATIENT GENDER DATA: Female. status: : No status: NO. PATIENT RELEVANT IMPLANT DATA REVIEWED: Not Applicable RADIOLOGY DEPARTMENT: General X-ray: Exam(s) Completed: Pelvis X-Ray: sacroiliac joints PERIPHERAL IV DATA: Not applicable SIGNED BY: RT Corey(R) July 22, 2022 10:56 AM documented in this encounterThe [facility]08-18-2022 Miscellaneous Notes* Telephone Encounter - Tracy Calloway - 07/18/2022 11:21 AM EDT Spoke with infusion nurse at the [place] Location. They are able to use the therapy plan you place.Pharmacy will just need to make sure they have all of the medications available for patient. I am also routing message to the [facility] and [facility] infusions nurses. * Telephone Encounter - Omi Nagy MD - 07/15/2022 2:12 PM EDT We are just covering, so I would appreciate it if the patient waits for Dr. Concepcion to respond otherwise an ROSA visit is appropriate in this case. Thanks. * Telephone Encounter - Dian Couch - 07/15/2022 11:09 AM EDT Patient last seen on 06/07/22 documented in this encounterThe [facility]08-18-2022 History of Present illness Narrative* Sue Concepcion MD - 07/18/2022 9:28 AM EDT Images from the original note were not included. [facility] Follow up Encounter Last Visit: 1 month ago for NICK block Primary Problem List: ACTIVE PROBLEM LIST H/O Cervical Spine Surgery Chronic Neck Pain Hx of Neck Surgery Radiculopathy of Cervical Region Arm Numbness Left Clenching of Teeth Myofascial Muscle Pain Centric Occlusion Maximum Intercuspation Discrepancy Arthralgia of Left Temporomandibular Joint Hyponatremia Acute Metabolic Encephalopathy Migraine Headache With Aura Water Intoxication Chronic TMJ Pain Inflammatory Arthritis Somatic Dysfunction of Rib Somatic Dysfunction of Spine, Thoracic Somatic Dysfunction of Spine, Cervical Acute Right-Sided Thoracic Back Pain Neck Pain Interval Headache Hx: Pain today: Questions or concerns to address today: Steroid taper no benefit NICK block only a few hours relief Still has daily headaches She has herniated disk and had epidural injection in neck Ankylosing spondylosis vs inflam arthritis of spine Tried Embrel and will try Sinphoni infiusion next She cannot remember last headache free day She has not tried infusions She would like to have Infusions in [place] Arboleda RN I s the RN at [place] Pain level # of headache days/month 30 10 severe # of headache free days/ month 0 Current Preventive:Ajovy 3 injections end of May no difference Current Abortive:nurtec no benefit , Cambia bid X 10 days per month Frequency of Abortives: 10 Medications effective cambia but nothing else Risk Factors for chronification:CM New Health Issues: no Red Flags:none Prior Therapies Duration of Use Dose Reason for Discontinuation Other Therapies Nerve blocks Physical therapy Analgesic Diclofenac (Voltaren, Cataflam, Cambia) Indomethacin (Indocin) Anti-Convulsant Topiramate (Topamax, Trokendi XL, Qudexy) Anti-Depressant and Antipsychotic Duloxetine (Cymbalta) Nortriptyline (Pamelor, Aventyl) Antiemetics zofran Anti-Migraine Rizatriptan (Maxalt) ineffective Sumatriptan (Imitrex, Sumavel) ineffective MABs Erenumab (Aimovig) Fremanezumab (Ajovy) Botulinum Toxin Onabotulimum Toxin A (Botox) Muscle Relaxer Cyclobenzaprine (Flexeril) Supplements CoQ10 Magnesium Riboflavin 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 rimegepant (NURTEC ODT) 75 mg disintegrating tablet Take 1 tablet by mouth once daily as needed. Limit to 8 days a month fremanezumab-vfrm (AJOVY AUTOINJECTOR) 225 mg/1.5 mL auto-injector Inject 4.5 mL subcutaneously every 3 months. valACYclovir (VALTREX) 1 gram Take 1 tablet by mouth once daily. valACYclovir (VALTREX) 1 gram Take 2 tablets by mouth twice daily. Diclofenac Potassium (CAMBIA) 50 mg pwpk Take 1 Packet by mouth as needed for migraine headache. Can repeat dose in 2 hours, no more than 2 doses per day, or 2 days per week baclofen (LIORESAL) 10 mg tablet Take 1 tablet by mouth four times daily. DULoxetine (CYMBALTA) 60 mg capsule Take 1 capsule by mouth once daily. Magnesium Citrate 150mg (Pure Encapsulations) Take 4 capsules daily. riboflavin, vitamin B2, (VITAMIN B-2) 100 mg tab Take 4 tablets by mouth once daily. coenzyme Q10 (COQ-10) 100 mg cap capsule Take 1 capsule by mouth twice daily. vitamin D3-folic acid 5,000 unit- 1 mg tab Take 5,000 Units by mouth once daily. multivitamin tablet Take 1 tablet by mouth once daily. Etanercept (ENBREL SURECLICK) 50 mg/mL (1 mL) Inject 50mg (1 pen) under the skin one time each week. ondansetron (ZOFRAN) 4 mg tablet Take 1 tablet by mouth every 8 hours as needed for nausea/vomiting. Current Facility-Administered Medications Medication Dose Route Frequency perflutren lipid microspheres 1.3 mL in NaCl (PF) 0.9% 10 mL injection (DEFINITY) INTRAVENOUS DIRECTED PRN sodium chloride 0.9 % (flush) 10 mL (BD POSIFLUSH) 10 mL INTRAVENOUS DIRECTED PRN ALLERGIES Allergen Reactions Dilaudid [Hydromorp* Itching Fentanyl Itching Sulfa (Sulfonamide * Rash REVIEW OF SYSTEMS: Review of system : unchanged from the previous visit (sleep patterns, mood, energy, appetite, stress, exercising). HEADACHE SCORES: Headache Questions 02/13/2022 06/05/2022 07/18/2022 ER visits since last office visit: 0 2 0 Hospital stays since last office visit 0 0 0 Limited ADLs in the last month: 4 15 20 Days missed from work or school in the last month: 0 0 0 Days headache pain free in the last month: 15 5 0 Days per month with ALL of the following symptoms - decreased productivity, light sensitivity and nausea: 0 7 10 Initial improvement of headache after botox injection at last visit: Much improved No change Not applicable, I did not have a botox injection at my last visit Days per month with mild/moderate face pain: - - - Days per month with severe face pain: - - - Days per month free from face pain: - - - PRN medication usage in the last month: 10 10 10 Patient impression of improvement since last visit: Much improved Minimally worse No change HIT-6 02/13/2022 06/05/2022 07/18/2022 HIT-6 - - - HIT-6 64 (Severe impact) 64 (Severe impact) 67 (Severe impact) LETICIA - 2/7 SCORES 06/05/2022 07/05/2022 07/18/2022 LETICIA-2 Score 0 0 0 LETICIA-7 Score - 0 - Pain Disability Index 03/29/2021 05/22/2021 PDI Score 45 22 Migraine Specific QOL - Higher scores indicate better HRQL 11/08/2020 06/05/2022 07/18/2022 Role Function-Restrictive Transformed Score (range: 0-100) 40 40 40 Role Function-Preventive Transformed Score (range: 0-100) 40 45 50 Emotional Function Transformed Score (range: 0-100) 40 40 33.33 PHQ-9 05/27/2022 05/27/2022 07/18/2022 Score 6 6 7 PHYSICAL EXAM: Modified for virtual platform GEN: Alert. NAD. Normal affect. Cooperative. RESP: Breathing at normal rate/ does not appear to have respiratory distress with speaking NEUROLOGICAL: MENTAL STATUS: A+O x 3. Attentive. Thought process and content unremarkable. Follows commands appropriately. Speech fluent. Pain behaviours:nonoe CN: III, IV, : EOMI. No ptosis present. VII: Face symmetric. VIII: Hearing grossly intact Imp: Chronic migraine Atypical facial pain Comorbid disorders ankylosing spondylitis TMD Plan: Continue present prophylactic and rescue medication Abortive therapy: [place] Bridging Therapy: infusions Preventive therapy: metoprolol plan b naomie I spent a total of 30 minutes on the date of the service which included preparing to see the patient, [id number] patient care, completing clinical documentation, obtaining and/or reviewing separately obtained history, performing a medically appropriate examination, counseling and educating the pat ient/family/caregiver, ordering medications, tests, or procedures, and communicating with other HCPs (not separately reported). Sue Concepcion MD This document has been created with the use of voice recognition technology. It may contain inaccuracy, misspelling, inaccurate syntax or word sense. Answers submitted by the patient for this visit: Headache Questionnaire (Submitted on 07/18/2022) How many days of work or school have you missed due to headaches in the last month? : 0 In the last month, how many headache days did you experience ALL of the following symptoms: decreased productivity, light sensitivity and nausea?: 10 How many days have you been completely free of headache pain in the last month? : 0 ICHD-3 Diagnosis: Chronic Migraine Headache (CM) We will get a precert for a high-affinity 5-HT1F receptor agonist (Ditan), Lasmiditan for the treatment of an acute migraine. This patient meets AHS criteria for acute migraine treatment and the FDA has approved Lasmiditan for acute migraine treatment. Specifically, the patient 30 headaches per month, lasting 4 or more hours/day associated with photophobia, phonophobia, nausea, vomiting, neck pain, worse with movement, relieved in supine position for three or more months. Medication overuse headache has been ruled out.Patient will not use with a GEPANT. The patient has tried and failed the following : Anti-Migraine Rizatriptan (Maxalt) ineffective Sumatriptan (Imitrex, Sumavel) ineffective Analgesic Diclofenac (Voltaren, Cataflam, Cambia) Indomethacin (Indocin) no benefit Ketorolac (Toradol) no benefit documented in [facility]The [facility] History of Present illness Narrative* Domitila Galeano ([employer]) - 07/09/2022 1:42 PM EDT [facility] Discontinuation Assessment: Disease group: Inflammatory Medication: ENBREL SURECLICK 50 MG/ML (1 ML) SUBCUTANEOUS PEN INJECTOR Discontinue reason: Changing therapy Domitila Galeano ([place]) documented in this encounterThe [facility]08-05-[facility] History of Present illness Narrative* Wisam Chung PA-C - 07/05/2022 2:05 PM EDT VIRTUAL VISIT PROGRESS NOTE July 05, 2022 This is a virtual visit using Animail video visit. It required patient-provider interaction for themedical decision making as documented below. Patient of Dr. Torre ROSEMARY: 06/06/2022 (with Wisam Chung) CC: discuss medication options. HPI: Kira Adhikari is a 36 year old female seen for Discuss medication options Important Disease History: Wrist, MCP, and PIP pain and swelling - responds to prednisone Past MCP./PIP synovitis Also with significant hip/SI complaints - + Family history of Seronegative Hydroxychloroquine - dizziness and tremors Sulfa allergy Methotrexate ineffective Humira with significant improvement, but ? Side effects and secondary failure Enbrel with no efficacy Current Rheum Treatment: Enbrel weekly - started 7 weeks ago Chart review Since last visit: NGUYEN - started on cyproheptadine and rimegepant sulfate & greater occipital nerve block Functional medicien - Planning to start rifaxamin Had Cervical epidural block with Dr. Cheng 07/02/22 Interval History: She is having low back and Hip/SI joint pain. The pain radiates into her butt. She needs a massage to function through the work. She is having difficulty walking from one place to the next. Location rotates side to side, depends on the day. When she started the Humira in the fall it went away. Now getting worse again on Enbrel. Also getting plantar fasciitis - Heels are on fire. Associated with flare ups. Now getting achilles pain She hs family history of - Uncles all had it. She had shortness of breath when she flares. She has pain in her hips all night long. The pain is in her SI joints and radiates into her Coccyx Her neck pain improved after the injection Previously diagnosed with SIBO - waiting for insurance coverage of rifaximin She is fostering a girl Kourtney, plans to adopt. Monitoring: Lab 07/2022 Hep Remote - negative 01/2021 Blood TB - gets through [facility] annually Lipids 07/22- High HISTORY REVIEWED (electronic chart updated): - medical history - medications - allergies REVIEW OF SYSTEMS: Review of Systems CONSTITUTION: Positive for: Recent weight change Negative for: Fever HEENT: Positive for: Mouth sores Negative for: Nosebleeds, Trouble swallowing and Dry mouth RESPIRATORY: Positive for: Shortness of breath Negative for: Cough and Pain with breathing GASTROINTESTINAL: Positive for: Heartburn Negative for: Melena, Diarrhea and Abdominal pain MUSCULOSKELETAL: Positive for: Arthralgias, Myalgias, Muscle weakness, Joint swelling and Morning Joint Stiffness NEUROLOGICAL: Positive for: Headaches Negative for: Numbness and Memory loss SKIN: Negative for: Rash, Skin changes, Hair loss and Nail changes EYES: Positive for: Eye dryness and Visual disturbance Negative for: Eye pain and Eye redness CARDIOVASCULAR: Negative for: Chest pain and Leg swelling GENITOURINARY: Negative for: Dysuria and Hematuria HEMATOLOGIC/LYMPHATIC: Negative for: Swollen glands RAPID 3: DISEASE ACTIVITY: Weighed Score Levels: 0 - 1: Near Remission 1.3 - 2.0: Low Severity 2.3 - 4.0: Moderate Severity 4.3 - 10.0: High Severity RAPID-3 Weighed Score 02/19/2022 06/05/2022 07/05/2022 RAPID 3 Weighed Score 2.89 (Moderate Severity (MS)) 3.56 (Moderate Severity (MS)) 6 (High Severity (HS)) PROMIS Assessments PROMIS Assessments 06/05/2022 06/17/2022 07/05/2022 Physical Health Percentile 15 % 15 % - Mental Health Percentile 26 % 34 % - Pain Score 3 3 - Pain Interference Percentile 16 % - 1 % Fatigue Percentile 18 % - 3 % Physical Function Percentile 18 % - 12 % Patient Health Questionnaire (PHQ-9) PHQ-9 02/13/2022 05/27/2022 05/27/2022 Score 3 6 6 PHYSICAL EXAMINATION: General: alert and appropriate, in no distress, well-hydrated, well nourished, and happy, smiling, interactive Skin: no rash noted Head: normocephalic, no abnormality or lesion noted Neck: full ROM, no cervical LNs noted Respiratory: breathing non-labored Back: back normal in appearance, spine with FROM + DEYVI per patient description, she did not perform on Camera Able to put occiput on wall behind Neurologic: no obvious deficit MSK: hands slightly puffy, no clear or obvious synovitis. Able to make fists. ASSESSMENT: (M19.90) Inflammatory arthritis With steroid-responsive wrist, MCP and PIP pain along with fatigue, synovitis of the MCPs and PIPs in the past (mild L 2nd MCP swelling today) and negative serologies. HCQ with dizziness and tremors.Sulfa allergy. MTX ineffective, initial rash. Humira with significant improvement initially, then developed secondary failure with increase in flare frequency and more fatigue - No benefit from Enbrel. - Patient with symptoms concerning for SpA - bilateral plantar fasciitis and achilles tendonitis, as well as significant SI pain and stiffness - Will Check HLA- B27 - will help guide treatment strategy, ? IL-17 verusus RA Meds - Avoid Actemra and Xeljanz with high Cholesterol levels - Given her good response to Humira, and unclear clinical picture of SpA versus Seronegative RA, wewill try Simponi infusions then consider switch to SC per clinical course (Z79.899) Encounter for long-term (current) use of medications (primary encounter diagnosis) Reviewed labs, high Choelstersol - will review with PCP - Gets annual TB test through [facility] - Hep remote consistent with vaccination for Hep B PLAN: Med Changes: Stop Enbrel 1 week before starting Simponi Get insurance authorization fro Simponi Consider daily NSAID after finishing prednisone course Avoid future prednisone courses due to high cholesterol and sub-optimal response Keep August visit with Dr. Torre Labs: Check HLA-B27 Imaging: XR SI joints to look for radiographic evidence of SpA Follow up with Dr. Torre in August as scheduled FU with me sometime Medical Decision Making: Medical Decision Making Level: 1 - N/A I spent a total of 32 minutes on the date of the service which included preparing to see the patient, [id number] patient care, performing a medically appropriate examination, counseling and educating the patient/family/caregiver, ordering medications, tests, or procedures, and communicating results to the patient/family/caregiver. Wisam Chung PA-C CC: Dr. Torre documented in this encounterThe [facility] History of Present illness Narrative* Josefa Wong APRN.MILLED RICE BROKER - 07/05/2022 8:05 AM EDT Images from the original note were not included. [facility] [place] [facility] Department of Cardiovascular Medicine SECTION OF PREVENTIVE CARDIOLOGY VIRTUAL VIDEO VISIT This is a virtual video visit. It required patient-provider interaction for the medical decision making as documented below. Kira Adhikari has consented to this video encounter. 07/05/2022 Kira Adhikari CURRENT MEDS: Current Outpatient Medications Medication Sig predniSONE (DELTASONE) 10 mg tablet TAKE BY MOUTH WITH FOOD.TAKE 30MG(3 TABS)/DAY X1 WEEK, THEN 20MG (2 TABS)/DAY X1 WEEK, THEN 10MG (1 TAB)/DAY X1 WEEK, THEN STOP rifAXIMin (XIFAXAN) 550 mg tablet Take 1 tablet by mouth three times daily for 28 days. cyproheptadine (PERIACTIN) 4 mg tablet Take 1 tablet by mouth three times daily as needed. rimegepant (NURTEC ODT) 75 mg disintegrating tablet Take 1 tablet by mouth once daily as needed. Limit to 8 days a month fremanezumab-vfrm (AJOVY AUTOINJECTOR) 225 mg/1.5 mL auto-injector Inject 4.5 mL subcutaneously every 3 months. valACYclovir (VALTREX) 1 gram Take 1 tablet by mouth once daily. Etanercept (ENBREL SURECLICK) 50 mg/mL (1 mL) Inject 50mg (1 pen) under the skin one time each week. valACYclovir (VALTREX) 1 gram Take 2 tablets by mouth twice daily. Diclofenac Potassium (CAMBIA) 50 mg pwpk Take 1 Packet by mouth as needed for migraine headache. Can repeat dose in 2 hours, no more than 2 doses per day, or 2 days per week baclofen (LIORESAL) 10 mg tablet Take 1 tablet by mouth four times daily. DULoxetine (CYMBALTA) 60 mg capsule Take 1 capsule by mouth once daily. ondansetron (ZOFRAN) 4 mg tablet Take 1 tablet by mouth every 8 hours as needed for nausea/vomiting. Melatonin-SR (Klaire/Prothera) Take 1 capsule one hour before bedtime Meriva-SF (Lorena) Take 2 capsules by mouth twice daily. Quercetin [address] ct[address] (Pure Encapsulations) Take 2 capsules twice daily between meals. Magnesium Citrate 150mg (Pure Encapsulations) Take 4 capsules daily. riboflavin, vitamin B2, (VITAMIN B-2) 100 mg tab Take 4 tablets by mouth once daily. coenzyme Q10 (COQ-10) 100 mg cap capsule Take 1 capsule by mouth twice daily. vitamin D3-folic acid 5,000 unit- 1 mg tab Take 5,000 Units by mouth once daily. ascorbic acid, vitamin C, (VITAMIN C) 500 mg tablet Take 1 tablet by mouth once daily. multivitamin tablet Take 1 tablet by mouth once daily. Current Facility-Administered Medications Medication Dose Route Frequency perflutren lipid microspheres 1.3 mL in NaCl (PF) 0.9% 10 mL injection (DEFINITY) INTRAVENOUS DIRECTED PRN sodium chloride 0.9 % (flush) 10 mL (BD POSIFLUSH) 10 mL INTRAVENOUS DIRECTED PRN ALLERGIES: ALLERGIES Allergen Reactions Dilaudid [Hydromorp* Itching Fentanyl Itching Sulfa (Sulfonamide * Rash CHIEF COMPLAINT: Kira Adhikari is a 36 year old White female seen today. Patient presents with: Hyperlipidemia HISTORY OF PRESENT CARDIOVASCULAR ILLNESS: 36 year old female with hyperlipidemia, inflammatory arthritis presents for ongoing management of cardiovascular risk factors. Pt has inflammatory arthritis, diagnosed last year. Pt has tried multiple medications for treatmentand is still working with Rheumatology to find stable regimen. Rituximab or Actemra are both under consideration. Gluten free diet. Chest pain: No Claudication: no SOB: with inflammation Orthopnea: no PND:no LE:no Lightheadedness/dizziness: no Palpitations:no Bleeding/bruising: no CARDIAC RISK FACTORS: History question Answer Diagnosis Date Comment Dyslipidemia : Dyslipidemia 2010 Exercise: More than 5 times per week Family History of CAD: Negative 1-3 miles 2 days per week or swimming. Pilates Exercise is limited by inflammatory flares STATIN INTOLERANCE: Adverse Effect History of Statin Intolerance:: No Current Statin Freq: None USE OF PCSK9 INHIBITORS: CARDIOVASCULAR DISEASE HISTORY: FAMILY AND SOCIAL HISTORY Lifestyle Tobacco Use: Never Alcohol Use: Not Currently (none since 2019) PHYSICAL EXAMINATION Vital Signs and General Appearance NA, telephone visit PHYSICAL EXAMINATION: NA, telephone visit Clinical Test Results Last ECHO Result Conclusion ECHO Collected: 07/05/2021 3:26 PM (Final result) Impression: CONCLUSIONS: - Technically difficult exam due to body habitus. - Exam indication: RUSH - The left ventricle is normal in size. Left ventricular systolic function is normal. EF = 55 5% (visual est.) Normal left ventricular diastolic function. - The right ventricle is normal in size. Right ventricular systolic function is normal. - There are no significant valvular abnormalities. - The patient has not had a prior CC echocardiographic exam for comparison. * * * Final * * * Complete Results Ejection Fraction: Ejection Fraction: Normal (>50%) Lab Results: Lipoprotein (a) Date Value Ref Range Status 07/03/2022 46 (H) <30 mg/dL Final Cholesterol, Total Date Value Ref Range Status 07/03/2022 321 (H) <200 mg/dL Final Comment: <200 mg/dL, Desirable 200-239 mg/dL, Borderline high >239 mg/dL, High Triglyceride Date Value Ref Range Status 07/03/2022 73 <150 mg/dL Final Comment: <150 mg/dL, Normal 150-199 mg/dL, Borderline high 200-499 mg/dL, High >499 mg/dL, Very high HDL Cholesterol Date Value Ref Range Status 07/03/2022 80 >39 mg/dL Final Comment: 40-59 mg/dL, Acceptable >59 mg/dL, High: Negative risk factor for coronary heart disease <40 mg/dL, Low: Positive risk factor for coronary heart disease LDL Cholesterol Date Value Ref Range Status 07/03/2022 226 (H) <100 mg/dL Final Comment: <100 mg/dL, Optimal 100-129 mg/dL, Near optimal/above optimal 130-159 mg/dL, Borderline high 160-189 mg/dL, High >189 mg/dL, Very high Secondary prevention optimal LDL Cholesterol levels are recommended to be < 70 mg/dL Hemoglobin A1C Date Value Ref Range Status 01/23/2021 5.2 4.3 - 5.6 % Final Comment: [place] Diabetes Association guidelines indicate that patients with HgbA1c in the range 5.7-6.4% are at increased risk for development of diabetes, and intervention by lifestyle modification may be beneficial. HgbA1c greater or equal to 6.5% is considered diagnostic of diabetes. ALT Date Value Ref Range Status 07/03/2022 21 7 - 38 U/L Final Glucose Date Value Ref Range Status 07/03/2022 108 (H) 74 - 99 mg/dL Final Comment: The [place] Diabetes Association (ADA) provides guidance for cutoff values for fasting glucose andrandom glucose. The ADA defines fasting as no caloric intake for at least 8 hours. Fasting plasma glucose results between 100 to 125 mg/dL indicate increased risk for diabetes (prediabetes). Fasting plasma glucose results greater than or equal to 126 mg/dL meet the criteria for diagnosis of diabetes. In the absence of unequivocal hyperglycemia, results should be confirmed by repeat testing. In a patient with classic symptoms of hyperglycemia or hyperglycemic crisis, random plasma glucose results greater than or equal to 200 mg/dL meet the criteria for diagnosis of diabetes. Reference: Standards of Medical Care in Diabetes 2016, [place] [employer]. Diabetes Care. 2016.39(Suppl 1). TSH Date Value Ref Range Status 11/01/2020 1.600 0.270 - 4.200 uU/mL Final Comment: If the patient is , TSH reference range varies by gestational period: First Trimester (weeks 9-12): 0.180-2.990 mcIU/mL Second Trimester: 0.110-3.980 mcIU/mL Third Trimester: 0.480-4.710 mcIU/mL Yeyo Cheung et al. A Practical Approach for the Verifications and Determination of Site- and Trimester-Specific Reference Intervals for Thyroid Function tests in . Thyroid, 2019:29:3:412-420. Hill Brunner, et al. 2017 Guidelines of the [place] Thyroid Association for the Diagnosis and Management of Thyroid Disease during and the . Thyroid, 2017:27:3:315-389. UltraSens C-Reactive Protein Date Value Ref Range Status 12/27/2021 0.9 <3.1 mg/L Final Comment: (NOTE) hsCRP < 1.0 mg/L, relative risk is low hsCRP 1.0-3.0 mg/L, relative risk is average hsCRP > 3.0 mg/L, relative risk is high Reference: Donell TA, Arnulfo GA, Hill MARIN, et al. Markers of Inflammation and Cardiovascular Disease. Application to Clinical and Public Health Practice. A Statement for Healthcare Professionals From the Centers for Disease Control and Prevention and the [place] [employer]. Circulation 2003;107:499-511. Creatinine Date Value Ref Range Status 07/03/2022 0.74 0.58 - 0.96 mg/dL Final Potassium Date Value Ref Range Status 07/03/2022 3.8 3.7 - 5.1 mmol/L Final Patient Entered Questionnaire Scores PHQ-9 05/27/2022 05/27/2022 02/13/2022 Score 6 6 3 LETICIA - 7 SCORES 07/05/2022 LETICIA-7 Score 0 PROMIS Global Health - (T-Scores - the mean of general population = 50. Five points is a clinicallymeaningful difference.) 06/17/2022 06/05/2022 06/05/2022 Physical T-Score 39.8 39.8 39.8 Mental T-Score 45.8 43.5 43.5 IMPRESSION: In summary, Ms. Adhikari is a 36 year old female who was referred to the [facility] because of , Dyslipidemia, Impaired glucose tolerance/Pre-diabetes and Overweight/Obese PLAN: The results of this assessment were discussed with the patient. We have mutually agreed upon the following plans and goals: Hyperlipidemia: LDL goal < 100, ideally < 70 due to inflammatory arthritis, mildly elevated LP(a). Statin therapy was delayed last year due to starting MTX, following LFT's, symptoms. Pt is still working with Rheumatology to find stable regimen. Pt had elevated LFT's on methotrexate that normalized when she discontinued it. Pt currently considering rituximab or Actemra. Actemra is known to possibly increase LFT's and lipids. Pt's is s/p vasectomy. Pt has current joint aches (knees, ribs, hands, ribs). Discussed potential for muscle aches, weakness with statins. Component Latest Ref Rng & Units 02/03/2020 01/23/2021 07/03/2022 Cholesterol, Total <200 mg/dL 247 (H) 252 (H) 321 (H) Triglyceride <150 mg/dL 67 61 73 HDL Cholesterol >39 mg/dL 56 61 80 LDL Cholesterol <100 mg/dL 178 (H) 179 (H) 226 (H) Non HDL Cholesterol <130 mg/dL 191 (H) 191 (H) 241 (H) Fasting Time hrs 10 Unknown 12 VLDL Cholesterol <30 mg/dL 13 12 15 TC:HDL Ratio <5.10 4.41 4.13 4.01 LDL:HDL Ratio <2.54 3.18 (H) 2.93 (H) 2.83 (H) PLAN: -Recommend starting Crestor 10 mg daily. Will try to initiate separately from inflammatory arthritis medication. Pt to send follow up message after Rheum appt. -Repeat labs and follow up in 3 months -Appt scheduled with Dr. Koo for December Anti-platelet / Anti-coagulant: NA. LP(a) 46. Hypertension: BP controlled on no medication. Date: BP: 06/19/2022 120/74 06/13/2022 119/72 05/07/2022 120/76 02/25/2022 121/67 Impaired fasting glucose: FBS 108 while on prednisone. Continue exercise, limiting carbs. Exercise: 1-3 miles 2 days per week or swimming. Pilates. Exercise is limited by inflammatory flares Nutrition: Weight gain with steroids. Attentive to nutrition. Continue weight loss efforts. HEALTH MAINTENANCE: Please follow-up with your Primary Card Physician and review your health maintenance to ensure it is up to date. MEDICATION CHANGES: Start Crestpr 10 mg daily (pending Rheum appt) Physicians and Nurse Practitioners work closely together in Preventive Cardiology. If at any time you would like to see a Physician for a visit, please let us know. [facility] Hayes [facility] AMBULATORY PATIENT EDUCATION Topic: Hyperlipidemia, Pre Diabetes, Exercise, Nutrition and Weight Loss Instruction Provided To: Patient Cognitive Ability: Alert/Oriented Barriers: None Motivation to Learn: Interested Methods of Instruction: Verbal instruction and/or handouts. Patient Leans Best By: Multiple Methods Patient Verbalized: Understanding I personally spent 30 minutes in total time involved in the management and care of this patient. Josefa Wong APRN.CNP documented in this encounterThe [facility]08-[facility] Miscellaneous Notes* Telephone Encounter - Milagros Nasreen - 07/04/2022 7:45 AM EDT Virtual visit scheduled for 07/05 at 2 pm. * Telephone Encounter - Milagros Downey - 07/03/2022 4:43 PM EDT appt is no longer available. PSS- can you please call the patient and see if she is available for a virtual visit with Wisam on Friday? As of right now, Wisam has openings on the [facility] schedule on Thursday 07/05. Thanks! * Telephone Encounter - Jina Gio - 07/03/2022 2:19 PM EDT Pt has yet to read her Mychart, can you call and schedule the f/u tomorrow. * Telephone Encounter - Milagros Downey - 07/02/2022 12:37 PM EDT Would you like me to offer her a virtual visit on Jul 04 at 1:30 pm? I think the patient scheduled at 1:00 is an established patient. Please advise, and I can contact the patient to schedule. documented in this encounterThe [facility]07[facility]22 Miscellaneous Notes* Telephone Encounter - Wisam Chung PA-C - 06/27/2022 2:41 PM EDT Patient returned call. We discussed Orencia versus Simponi She is leaning towards Orencia, but is deciding between IV and Subcutaneous. She plans to read on this this evening and message back. Unfortunately I will be out of the office tomorrow. Patient will call in/message tomorrow to see if Dr. Torre can place the order for the one that she prefers. If not Ill place the order on Friday when I return. Or my covering provider can place the order instead. Wisam Chung PA-C * Telephone Encounter - Wisam Chung PA-C - 06/27/2022 2:31 PM EDT Attempted to call patient to discuss, no answer. LVM asking patient to call or respond back. I'll be leaving shortly and off tomorrow, but happy to discuss when I return. Warm Regards, Wisam Chung PA-C documented in this encounterThe [facility]07-28-2022 Miscellaneous Notes* Telephone Encounter - Moon Sin MA - 06/27/2022 1:36 PM EDT Patient notified via 6APTt. Moon Sin MA * Telephone Encounter - Ajit Torre MD - 06/27/2022 1:08 PM EDT rx sent * Telephone Encounter - Moon Sin MA - 06/27/2022 12:54 PM EDT Spoke with patient. She is not feeling well, having a flare up x 5 days. Swelling in hands, knees and ankles. Low back pain and fatigue. Hands and fingers are stiff. Patient recently completed a course of Prednisone. No improvement with Enbrel injections. Patient notified MIESHA Ruffin. Patient asked if possible to have another prescription for Prednisone to take while waiting for a new treatment plan. Thanks, Moon Sin MA * [place] [facility] [place] 12:04 PM EDT Patient called back and would like a return she asked to only speak with a nurse, clarence borges her at [phone] * Telephone Encounter - Moon Sin MA - 06/27/2022 8:45 AM EDT Attempted to reach patient. No answer. LMTCB and clarify if she is requesting a refill due to a flare up or if it is her pharmacy via their automated system. Awaiting for patient s response. Thanks, Moon Sin MA * Telephone Encounter - Moon Sin MA - 06/27/2022 8:45 AM EDT Patient has been identified by name and date of : Yes RX INSTRUCTIONS: Patient aware RX will be sent to pharmacy. No need to notify patient. LAST APPOINTMENT: 11/08/2021 UPCOMING APPOINTMENT: 08/07/2022 LABS: Hemoglobin (g/dL) Date Value 12/27/2021 12.9 Hematocrit (%) Date Value 12/27/2021 40.8 WBC (k/uL) Date Value 12/27/2021 4.15 Platelet Count (k/uL) Date Value 12/27/2021 191 AST Date Value Ref Range Status 12/27/2021 25 13 - 35 U/L Final ALT Date Value Ref Range Status 12/27/2021 16 7 - 38 U/L Final Creatinine Date Value Ref Range Status 12/27/2021 0.69 0.58 - 0.96 mg/dL Final Uric Acid Date Value Ref Range Status 01/23/2021 4.0 2.5 - 6.6 mg/dL Final Moon Sin MA documented in this encounterThe [facility]07-21-2022 History of Present illness Narrative* Beatriz Melissa, PT - 06/20/2022 2:22 PM EDT Episode Visit Count: 32 Therapist That Will Oversee The Plan Of Care: Beatriz Melissa Start of Care Date: 01/13/20 Onset Date: 01/13/16 REHABILITATION AND SPORTS THERAPY PHYSICAL THERAPY TREATMENT NOTE ASSESSMENT: Kira Adhikari tolerated the session with decreased symptoms, expected muscle sorenessand no issues. She demonstrated improvements in neck pain, radicular symptoms, and headaches. The patient will continue to benefit from ongoing skilled physical therapy to progress toward set goals. PLAN FOR NEXT VISIT: manual as needed per symptoms, progress neck strengthening if tolerated SUBJECTIVE: Patient Reason for Visit: Pt had good release after last session. Notes suboccipital headache today and a little return of the referred rib pain Pain: OBJECTIVE MEASURES WITH LEVEL OF FUNCTION: B suboccipitals reproduce headache today TREATMENT: Manual Therapy: 2: STM to B cervical paraspinals, SCM, and upper traps with push to tolerance until symptoms subside Dry Needling: (1) 30 and 40 mm needle to B C4 and C7 paraspinals in clock technique plus TENS. 150 Hz leads 1 and 2 5.0-5.5 V, leads 3 and 4 6.5-7.0 V x10 min; (4) 25 mm needles to B suboccipitals with pistoning and periosteal pecking; (1) 50 mm needle to B upper traps with pistoning and fanning Skilled Intervention: Manual skills to improve joint mobility, ROM, and decrease pain. Utilized anatomy knowledge of the therapist, and assessment of patient's response to intervention. Billing Manual TherapyTreatment Minutes: 42 Total Treatment Time Minutes (timed/untimed): 42 Beatriz Melissa PT documented in this encounterThe [facility]07-19-2022 History of Present illness Narrative* Beatriz Melissa PT - 06/18/2022 2:12 PM EDT Episode Visit Count: 31 Therapist That Will Oversee The Plan Of Care: Beatriz Melissa Start of Care Date: 01/13/20 Onset Date: 01/13/16 REHABILITATION AND SPORTS THERAPY PHYSICAL THERAPY RE-EVALUATION PLAN OF CARE UPDATE: Assessment: Kira Adhikari demonstrates difficulty with neck pain, headaches, and right sided radicular symptoms. Her current goals are appropriate to continue. Patient continues to present with impairments in ADL's, overall function, symptom management and tissue tenderness that interfere with heavy exertion;physical activities;recreational activities;working;sleeping;cleaning;cooking . Currentprognosis is Good due to: current objective clinical presentation;good overall health status;positive past response to therapy;within-session changes;good support system/ coping skills . She will benefit from continued skilled therapy services to meet the updated goals for this plan of care as noted below. Goals for Episode of Care: created on 06/18/2022 through 09/18/22 Decrease subjective complaints of headache pain by 50%. Progressing towards Patient to report symptom free with talking and chewing. Progressing towards Decrease tenderness to palpation of cervical, craniofacial, and intraoral musculature by 75% with no active referral symptoms. Progressing towards Patient to be aware of and compliant with TMJ parafunctional habits to avoid and normal resting position of the jaw to allow for reduced pain complaints. Met, on-going Independent in a Home Exercise Program. Met, on-going Patient will decrease pain rating by 2 points to meet minimal clinical important difference for numeric pain rating scale. Progressing towards Restore pain free cervical ROM to WNL to allow for improved functional Mobility. Progressing towards Sleep throughout the night without pain/symptoms. Not met Maintain proper sitting posture throughout the session to allow for decreased pain and frequency of headaches. Progressing towards Planned Interventions, Frequency, and Duration: 1x/week, 8 weeks Total Number of Visits Planned: 8 Patient to be seen for Therapeutic exercise (48471);Neuromuscular re-education (97129);Manual therapy (52466);Therapeutic activities (54469);Self-detention management (65373);Patient/Family/CaregiverEducation;Body Mechanics Training PLAN FOR NEXT VISIT: Needling, traction, exercises as symptoms calm SUBJECTIVE: Patient Reason for Visit: Pt returns for B neck pain, headaches, and R sided radicular symptoms. Currently in a flare, cannot calm symptoms down. Functional Limitations: heavy exertion;physical activities;recreational activities;working;sleeping;cleaning;cooking Pain: Pain Pain Level: 7 Pain Location: Neck;Head - Left;Head - Right;Arm - Right Description: Aching;Sore;Shooting;Numbness;Tingling Frequency: Continuous Post Treatment Pain Post Treatment Pain Level: 2 Post Treatment Pain Location: Neck Post Treatment Pain Description: Sore;Aching PROMIS Scales Higher is Better 06/05/2022 06/05/2022 06/17/2022 Phys Func - Score - 41 (mild dysfunction) - Phys Func - Percentile - 18 % - Social Roles - Score - - - Social Role - Percentile - - - GH Physical - Score - 39.8 (Fair) 39.8 (Fair) GH Physical - Percentile 15 % 15 % 15 % GH Mental - Score - 43.5 (Good) 45.8 (Good) GH Mental - Percentile 26 % 26 % 34 % Self-Eff Symptom - Score - - - Self-Eff Symptom - Percentile - - - T-scores: mean of general population = 50. 5 points is clinically meaningfully difference Percentiles provide an indication of how the patient's score ranks in relation to the general population. Higher percentile rankings indicate better function/quality of life. 50th percentile is the average of the general population and indicates half of respondents had a worse score. Lower is Better 01/08/2022 02/15/2022 06/05/2022 Fatigue - Score 48 (within normal limits) 57 (mild) 59 (mild) Fatigue - Percentile 58 % 24 % 18 % T-scores: mean of general population = 50. 5 points is clinically meaningfully difference Percentiles provide an indication of how the patient's score ranks in relation to the general population. Higher percentile rankings indicate better function/quality of life. 50th percentile is the average of the general population and indicates half of respondents had a worse score. OBJECTIVE MEASURES WITH LEVEL OF FUNCTION: TREATMENT: Re-evaluation: Performed due to return of patient to therapy for same diagnosis. Manual Therapy: 1: Manual cervical traction x14 min total 2: STM to B cervical paraspinals, SCM, and upper traps with push to tolerance until symptoms subside Dry Needling: (1) 30 and 40 mm needle to B C4 and C7 paraspinals in clock technique plus TENS. 150 Hz leads 1 and 2 6.0 V, leads 3 and 4 5.0 V x10 min; (2) 25 mm needles to R suboccipitals with pistoning and periosteal pecking; (1) 50 mm needle to B upper traps with pistoning and fanning Skilled Intervention: Manual skills to improve joint mobility, ROM, and decrease pain. Utilized anatomy knowledge of the therapist, and assessment of patient's response to intervention. Billing * Re-Evaluation Complexity: 1 Unit Manual TherapyTreatment Minutes: 40 Total Treatment Time Minutes (timed/untimed): 55 Beatriz Melissa PT documented in this encounterThe [facility]07-14-2022 History of Present illness Narrative* Sue Concepcion MD - 06/13/2022 4:32 PM EDT Procedure Note: Greater Occipital Nerve Block The risks, benefits and anticipated outcomes of the procedure, the risks and benefits of the alternatives to the procedure, and the roles and tasks of the personnel to be involved, were discussed with the patient, and the patient consents to the procedure and agrees to proceed. UNIVERSAL PROTOCOL / SAFETY CHECKLIST Procedure to be performed: NICK , SON, ELICEO and ATN blocks Sign in Communication: Completed Time Out: Team Confirms the Correct Patient, Correct Procedure, Correct Site and Site Marking, Correct Position (if applicable), Prep and Dry Time (if applicable). Time: 4:33 PM Affirmation of Time Out: N/A Sign Out Discussion: Completed Sue Concepcion MD 20 cc 0.50% marcaine and 0 mg Kenalog were injected into the Bilateral: Greater Occipital Nerve, Lesser Occipital Nerve, Suprarobital Nerve and Auriculotemporal Nerve . Patient did tolerate the procedure. Pain reduction by 50%. Sue Concepcion M.D. documented in this encounterThe [facility]07-14-2022 Miscellaneous Notes* [facility] Outreach Note - Georgia Moore RN - 06/13/2022 3:24 PM EDT Last 3 Encounter BP Readings: Date: BP: 05/07/2022 120/76 02/25/2022 121/67 12/27/2021 122/63 Last 3 LDL readings: LDL Cholesterol (mg/dL) Date Value 01/23/2021 179 02/03/2020 178 No results found for: LDLCHOLDIR Hemoglobin A1C (%) Date Value 01/23/2021 5.2 MEDICATIONS PER RX DATABASE NONE Adherent with medication refills N/A Date Verified 06/13/22 Is member submitting receipts for Reimbursement N/A Is Employee Health Plan primary Yes documented in this encounterThe [facility]07-[facility]22 History of Present illness Narrative* Sue Concepcion MD - 06/07/2022 11:00 AM EDT Images from the original note were not included. [facility] Follow up Encounter Last Visit: 3 months Primary Problem List: ACTIVE PROBLEM LIST H/O Cervical Spine Surgery Chronic Neck Pain Hx of Neck Surgery Radiculopathy of Cervical Region Arm Numbness Left Clenching of Teeth Myofascial Muscle Pain Centric Occlusion Maximum Intercuspation Discrepancy Arthralgia of Left Temporomandibular Joint Hyponatremia Acute Metabolic Encephalopathy Migraine Headache With Aura Water Intoxication Chronic TMJ Pain Inflammatory Arthritis Somatic Dysfunction of Rib Somatic Dysfunction of Spine, Thoracic Somatic Dysfunction of Spine, Cervical Acute Right-Sided Thoracic Back Pain Neck Pain Interval Headache Hx: Pain today: Questions or concerns to address today: baclofen was working as was ajovy but loss of efficacy At last visit with Kyra 3 months ago she was having only 6 headache days a month with 24 headache free days. Now she is having daily headaches She has had to go to ED Has tried steroids taper Was in ED two weeks for status migrainosus No headache free days + Occipital neuralgia on left # of headache days/month 30 # of headache free days/ month 0 Current Preventive:ajovy q month Current Abortive: Baclofen 4 times a day up to daily Frequency of Abortives: Daily Medications effective they have lost their efficacy Risk Factors for chronification: Previous chronic migraine has inflammatory arthritis and is going through an exacerbation New Health Issues: See above Red Flags: None Prior Therapies Duration of Use Dose Reason for Discontinuation Other Therapies Nerve blocks Physical therapy Analgesic Diclofenac (Voltaren, Cataflam, Cambia) Indomethacin (Indocin) Anti-Convulsant Topiramate (Topamax, Trokendi XL, Qudexy) Anti-Depressant and Antipsychotic Duloxetine (Cymbalta) Nortriptyline (Pamelor, Aventyl) Antiemetics zofran MABs Erenumab (Aimovig) Fremanezumab (Ajovy) Botulinum Toxin Onabotulimum Toxin A (Botox) Muscle Relaxer Cyclobenzaprine (Flexeril) Supplements CoQ10 Magnesium Riboflavin 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 MQ: [id number] Contrast: 14 mL Dotarem IV COMPARISON: None. RESULT: Acute Change: There is no evidence of restricted diffusion to suggest an acute infarct. Hemorrhage: No evidence of prior parenchymal hemorrhage on the gradient echo images. Mass Lesion/ Mass Effect: No evidence of an intracranial mass or extra-axial fluid collection. No abnormal parenchymal or leptomeningeal enhancement is noted following contrast administration. No significant mass effect. Chronic Change: The white matter is within normal limits of signal intensity for age. Parenchyma: No significant volume loss for age. The brain parenchyma is otherwise within normal limits of signal intensity and morphology. Ventricles: Normal caliber and morphology. Skull Base: Hypothalamic and pituitary region are grossly normal. Craniocervical junction is normal. No significant marrow replacement process. Vasculature: Major intracranial arterial structures, and dural venous sinuses show typical flow void, suggesting patency by spin echo criteria. Other: Minimal mucosal thickening right maxillary sinus. The orbits and extracranial soft tissues are unremarkable. Impression: IMPRESSION: Normal MR appearance of the brain within constraints of mild motion degradation. No evidence of acute intracranial process, mass effect, or abnormal enhancement. Ore Buyer: PSCB Transcribe Date/Time: Mar 22 2021 1:25P Dictated by : JINA CAT MD This examination was interpreted and the report reviewed and electronically signed by: JINA CAT MD on Mar 22 2021 1:30PM EST Complete Results Current Medications: Current Outpatient Medications Medication Sig predniSONE (DELTASONE) 10 mg tablet Take by mouth with food.Take 30mg(3 tabs)/day x1 week, then 20mg (2 tabs)/day x1 week, then 10mg (1 tab)/day x1 week, then stop rifAXIMin (XIFAXAN) 550 mg tablet Take 1 tablet by mouth three times daily for 28 days. valACYclovir (VALTREX) 1 gram Take 1 tablet by mouth once daily. valACYclovir (VALTREX) 1 gram Take 2 tablets by mouth twice daily. Etanercept (ENBREL SURECLICK) 50 mg/mL (1 mL) Inject 50mg (1 pen) under the skin one time each week. Diclofenac Potassium (CAMBIA) 50 mg pwpk Take 1 Packet by mouth as needed for migraine headache. Can repeat dose in 2 hours, no more than 2 doses per day, or 2 days per week fremanezumab-vfrm (AJOVY AUTOINJECTOR) 225 mg/1.5 mL auto-injector INJECT 225 MG (1.5ml) UNDER THE SKIN ONCE EVERY MONTH. baclofen (LIORESAL) 10 mg tablet Take 1 tablet by mouth four times daily. DULoxetine (CYMBALTA) 60 mg capsule Take 1 capsule by mouth once daily. ondansetron (ZOFRAN) 4 mg tablet Take 1 tablet by mouth every 8 hours as needed for nausea/vomiting. Melatonin-SR (Klaire/Prothera) Take 1 capsule one hour before bedtime Meriva-SF (Lorena) Take 2 capsules by mouth twice daily. Quercetin [address] ct[address] (Pure Encapsulations) Take 2 capsules twice daily between meals. Magnesium Citrate 150mg (Pure Encapsulations) Take 4 capsules daily. riboflavin, vitamin B2, (VITAMIN B-2) 100 mg tab Take 4 tablets by mouth once daily. coenzyme Q10 (COQ-10) 100 mg cap capsule Take 1 capsule by mouth twice daily. vitamin D3-folic acid 5,000 unit- 1 mg tab Take 5,000 Units by mouth once daily. ascorbic acid, vitamin C, (VITAMIN C) 500 mg tablet Take 1 tablet by mouth once daily. multivitamin tablet Take 1 tablet by mouth once daily. Current Facility-Administered Medications Medication Dose Route Frequency perflutren lipid microspheres 1.3 mL in NaCl (PF) 0.9% 10 mL injection (DEFINITY) INTRAVENOUS DIRECTED PRN sodium chloride 0.9 % (flush) 10 mL (BD POSIFLUSH) 10 mL INTRAVENOUS DIRECTED PRN ALLERGIES Allergen Reactions Dilaudid [Hydromorp* Itching Fentanyl Itching Sulfa (Sulfonamide * Rash REVIEW OF SYSTEMS: Review of system changed from previous visit: HEADACHE SCORES: Headache Questions 05/22/2021 02/13/2022 06/05/2022 ER visits since last office visit: - 0 2 Hospital stays since last office visit - 0 0 Limited ADLs in the last month: - 4 15 Days missed from work or school in the last month: - 0 0 Days headache pain free in the last month: - 15 5 Days per month with ALL of the following symptoms - decreased productivity, light sensitivity and nausea: - 0 7 Initial improvement of headache after botox injection at last visit: - Much improved No change Days per month with mild/moderate face pain: 19 - - Days per month with severe face pain: 0 - - Days per month free from face pain: 10 - - PRN medication usage in the last month: 7 10 10 Patient impression of improvement since last visit: - Much improved Minimally worse HIT-6 02/25/2021 02/13/2022 06/05/2022 HIT-6 - - - HIT-6 66 (Severe impact) 64 (Severe impact) 64 (Severe impact) LETICIA - 2/7 SCORES 05/22/2021 02/13/2022 06/05/2022 LETICIA-2 Score 0 0 0 Pain Disability Index 03/29/2021 05/22/2021 PDI Score 45 22 Migraine Specific QOL - Higher scores indicate better HRQL 08/10/2020 11/08/2020 06/05/2022 Role Function-Restrictive Transformed Score (range: 0-100) 60 40 40 Role Function-Preventive Transformed Score (range: 0-100) 60 40 45 Emotional Function Transformed Score (range: 0-100) 60 40 40 PHQ-9 02/13/2022 05/27/2022 05/27/2022 Score 3 6 6 PHYSICAL EXAM: Modified for virtual platform GEN: Alert. NAD. Normal affect. Cooperative. RESP: Breathing at normal rate/ does not appear to have respiratory distress with speaking None NEUROLOGICAL: MENTAL STATUS: A+O x 3. Attentive. Thought process and content unremarkable. Follows commands appropriately. Speech fluent. Pain behaviours: None CN: III, IV, : EOMI. No ptosis present. VII: Face symmetric. VIII: Hearing grossly intact Impression: Chronic migraine exacerbation Likely triggered by her autoimmune disorder flareup Comorbid disorders: Inflammatory arthritis Plan: Abortive therapy: She has tried and failed to triptans so we can try [facility] Preventive therapy: Continue with ajovy changed to 3 injections every 3 months I spent a total of 25 minutes on the date of the service which included preparing to see the patient, [id number] patient care, completing clinical documentation, obtaining and/or reviewing separately obtained history, performing a medically appropriate examination, counseling and educating the pat ient/family/caregiver and ordering medications, tests, or procedures. ICHD-3 Diagnosis: Chronic Migraine Headache (CM) We will get a precert for an Oral Calcitonin Gene-Related Peptide Receptor Antagonist (GEPANT) Rimegepant for the rescue treatment of episodic migraine. This patient meets AHS criteria for treatment of migraine with an oral small molecule CGRP antagonist GEPANT. The FDA has approved GEPANTS for thetreatment of migraine. Specifically, the patient has headaches per month, lasting 4 or more hours/day associated with photophobia, phonophobia, worse with movement, relieved in supine position for three or more months. Medication overuse headache has been ruled out.Patient will not use with anotherGEPANT. The patient has tried and failed the following : Anti-Migraine Rizatriptan (Maxalt) ineffective Sumatriptan (Imitrex, Sumavel) ineffective Analgesic Diclofenac (Voltaren, Cataflam, Cambia) Indomethacin (Indocin) Sue Concepcion MD This document has been created with the use of voice recognition technology. It may contain inaccuracy, misspelling, inaccurate syntax or word sense. Answers for HPI/ROS submitted by the patient on 06/05/2022 How many days of work or school have you missed due to headaches in the last month? : 0 In the last month, how many headache days did you experience ALL of the following symptoms: decreased productivity, light sensitivity and nausea?: 7 How many days have you been completely free of headache pain in the last month? : 5 documented in this encounterThe [facility]07-[facility]-2022 Miscellaneous Notes* Telephone Encounter - Lyric Marquez - 06/07/2022 9:50 AM EDT Called patient on home phone to complete virtual visit intake. Left voicemail message instructing patient to call office back. Office number provided. If patient returns call, please transfer to [phone]. documented in this encounterThe [facility]07-07-2022 History of Present illness Narrative* Wisam Chung PA-C - 06/06/2022 9:01 AM EDT VIRTUAL VISIT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 multivitamin tablet Take 1 tablet by mouth once daily. Current Facility-Administered Medications Medication Dose Route Frequency perflutren lipid microspheres 1.3 mL in NaCl (PF) 0.9% 10 mL injection (DEFINITY) INTRAVENOUS DIRECTED PRN sodium chloride 0.9 % (flush) 10 mL (BD POSIFLUSH) 10 mL INTRAVENOUS DIRECTED PRN FAMILY HISTORY: paternal aunt- currently undergoing RA evaluation, maternal uncles x2, maternal cousin-ankylosing spondylitis SOCIAL HISTORY: Lives in [place] with spouse with 2 kids, 10 yo and 13 yo (planning to foster to adopt). On 11/15/21, got a Kourtney to foster who she hopefully will adopt. 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 Tobacco use: None Alcohol use: None since Aug Drug use: None REVIEW OF SYSTEMS: reviewed 09/13 systems, as above PHYSICAL EXAM: CONSTITUTIONAL: Well-appearing, in NAD. SKIN: No rash. No alopecia. EYES: No scleral icterus or conjunctivitis NEURO: Awake, alert and oriented *January Widespread Pain Index: 17 (0-19) Symptoms Severity Scale: 8 (0-12) WPI>7 and SS Scale>5 OR WPI 3-6 and SS Scale >9 consistent with fibromyalgia LABORATORY: Component Latest Ref Rng & Units 12/27/2021 12/27/2021 10:43 AM 10:44 AM Protein, Total 6.3 - 8.0 g/dL 7.3 7.5 Albumin 3.9 - 4.9 g/dL 4.5 4.6 Calcium 8.5 - 10.2 mg/dL 9.6 Bilirubin, Total 0.2 - 1.3 mg/dL 0.4 0.4 Alkaline Phosphatase 34 - 123 U/L 43 42 AST 13 - 35 U/L 28 25 Glucose 74 - 99 mg/dL 71 (L) BUN 7 - 21 mg/dL 11 Creatinine 0.58 - 0.96 mg/dL 0.69 Sodium 136 - 144 mmol/L 137 Potassium 3.7 - 5.1 mmol/L 3.9 Chloride 97 - 105 mmol/L 104 CO2 22 - 30 mmol/L 20 (L) Anion Gap 9 - 18 mmol/L 13 ALT 7 - 38 U/L 14 16 eGFR- >60 eGFR-All Other Races . >60 WBC 3.70 - 11.00 k/uL 4.15 RBC 3.90 - 5.20 m/uL 4.13 Hemoglobin 11.5 - 15.5 g/dL 12.9 Platelet Count 150 - 400 k/uL 191 MPV 9.0 - 12.7 fL 11.5 Absolute nRBC <0.01 k/uL <0.01 Bilirubin, Conjug <0.2 mg/dL <0.2 Component Latest Ref Rng & Units 11/01/2020 Sm Antibody <1.0 AI <0.2 BRUSH FILLER HAND Antibody <1.0 AI 0.2 SSA Antibody <1.0 AI <0.2 SSB Antibody <1.0 AI <0.2 Centromere Ab <1.0 AI <0.2 Scleroderma Ab, IgG <1.0 AI <0.2 Debbie 1 Antibody <1.0 AI <0.2 Ribosomal BRUSH FILLER HAND <1.0 AI <0.2 Chromatin Antibody <1.0 AI <0.2 SEA by EIA, Qual Negative Negative SEA by EIA OD Ratio 0.2 CCP Antibody, IgG <20 Units <15 Rheumatoid Factor <16 IU/mL <10 Anti-SSA <1.0 AI <0.2 Anti-SSB <1.0 AI <0.2 CRP <0.9 mg/dL 0.4 CK 42 - 196 U/L 136 Vitamin D 25 Hydroxy 31.0 - 80.0 ng/mL 34.8 Endomysial Ab, IgA <1:10 <1:10 Component Latest Ref Rng & Units 01/23/2021 Gliadin Ab, IgA <20 Units 7 Gliadin Ab, IgG <20 Units 2 Transglutaminase Ab, IgG <20 Units 3 Transglutaminase Ab, IgA <20 Units 4 Component Latest Ref Rng & Units 02/03/2020 Sm Antibody <1.0 AI <0.2 BRUSH FILLER HAND Antibody <1.0 AI 0.2 SSA Antibody <1.0 AI <0.2 SSB Antibody <1.0 AI <0.2 Centromere Ab <1.0 AI <0.2 Scleroderma Ab, IgG <1.0 AI <0.2 Debbie 1 Antibody <1.0 AI <0.2 Ribosomal BRUSH FILLER HAND <1.0 AI <0.2 Chromatin Antibody <1.0 AI <0.2 SEA Negative Negative SEA Titer Negative Negative SEA Pattern Not applicable for negative result. IgA 78 - 391 mg/dL 289 Transglutaminase Ab, IgA <20 Units 4 Interpretation (Celiac Screen) No serologic evidence of celiac disease. No serologic evidence of celiac disease. UltraSens C-Reactive Protein <3.1 mg/L 1.6 WSR 0 - 20 mm/hr 8 Rheumatoid Factor <16 IU/mL <10 STUDIES: *January xray hands/SI joints- unremarkable *Jan MRI brain- No evidence for focal acute brain ischemia, mass effect, abnormal enhancement, or mastoid/middle ear inflammatory disease. No abnormal enhancement involving lower cranial nerves. Gross brain volume and morphology is within expected limits for age. Based on the axial T2 flow void pattern, proximal intracranial arterial vasculature, major cortical draining veins, and dural venous sinuses are patent. Concordant findings on the post gadolinium scans. *Oct MRI C-spine- Postop changes. Mild left bony foraminal stenosis at C6-7. Suspicion of mild epidural scar formation in the left C7-T1 neural foramen from a prior foraminotomy. No evidence of recurrent disc protrusion. IMPRESSION and PLAN: 1. Inflammatory arthritis: With steroid-responsive wrist, MCP and PIP pain along with fatigue, synovitis of the MCPs and PIPs in the past (mild L 2nd MCP swelling today) and negative serologies. HCQ with dizziness and tremors. Sulfa allergy. MTX ineffective, initial rash. Humira with significant improvement - Continue humira 40mg SC every 2 weeks (advised this could be switched to enbrel in the future if needed) 2. Migraine, chronic pain and cervical spine pain: Discussed that these are separate issues from the inflammatory arthritis - Continue PT, PCP, functional medicine and neurology management 3. Prior history of fibromyalgia: Current symptoms are not consistent with remote fibromyalgia presentation which resolved with cymbalta x2 years and then never recurred - Continue monitoring 4. General health maintenance: - Doesn't plan on getting covid vaccine, has a adventist exemption - Advised to continue follow-up with PCP for routine health maintenance and malignancy screening Follow-up in 3 & 9 months with Wisam Chung and 12 months with me or sooner if needed. Patient was instructed to call if any questions or concerns. Thank you for allowing me to participate in the care of your patient. Ajit Torre MD documented in [facility] encounter[facility]Evaluation noteNo assessment information availableWSelect Medical [facility] Work Phone: Evaluation note* Diagnosis Inflammatory arthritis- Primary Unspecified inflammatory polyarthropathy Long-term use of immunosuppressant medication Encounter for long-term (current) use of other medications Pain in joint, multiple sites [facility] Diagnosis Myofascial muscle pain- Primary Mylagia and myositis, unspecified Chronic neck pain Cervicalgia [facility]* Diagnosis Paresthesia of right arm- Primary Disturbance of skin sensation Radiculopathy, cervical region Brachial neuritis or radiculitis nos Numbness and tingling in right hand Disturbance of skin sensation [facility]* Diagnosis Adjustment disorder with anxious mood- Primary Adjustment disorder with anxiety [facility]* Diagnosis Full yazidi of crown of tooth needed due to previous endodontic treatment- Primary [facility]* Diagnosis BMI 30.0-30.9,adult- Primary Body Mass Index 30.0-30.9, adult [facility]* Diagnosis Inflammatory arthritis- Primary Unspecified inflammatory polyarthropathy [facility]* Diagnosis Small intestinal bacterial overgrowth (SIBO)- Primary [facility]* Diagnosis Inflammatory arthritis- Primary Unspecified inflammatory polyarthropathy Encounter for long-term (current) use of medications Encounter for long-term (current) use of other medications [facility]* Diagnosis Chronic migraine without aura, with intractable migraine, so stated, with status migrainosus- Primary Chronic migraine without aura, intractable, without status migrainosus [facility]* Diagnosis Inflammatory arthritis- Primary Unspecified inflammatory polyarthropathy [facility]* Diagnosis Chronic migraine without aura, intractable, without status migrainosus- Primary Chronic migraine without aura, with intractable migraine, so stated, with status migrainosus [facility]* Diagnosis Myofascial muscle pain- Primary Mylagia and myositis, unspecified Chronic neck pain Cervicalgia documented [facility]* Diagnosis Paresthesia of right arm- Primary Disturbance of skin sensation Radiculopathy, cervical region Brachial neuritis or radiculitis nos Numbness and tingling in right hand Disturbance of skin sensation Paresthesia of right arm Disturbance of skin sensation Radiculopathy, cervical region Brachial neuritis or radiculitis nos Numbness and tingling in right hand Disturbance of skin sensation [facility]* Diagnosis Myofascial muscle pain- Primary Mylagia and myositis, unspecified Chronic neck pain Cervicalgia Paresthesia of right arm Disturbance of skin sensation Radiculopathy, cervical region Brachial neuritis or radiculitis nos Numbness and tingling in right hand Disturbance of skin sensation [facility]* Diagnosis Hyperlipidemia LDL goal <100- Primary Other and unspecified hyperlipidemia Family history of hyperlipidemia Family history of other endocrine and metabolic diseases 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 [facility]* Diagnosis Encounter for long-term (current) use of medications- Primary Encounter for long-term (current) use of other medications Radiculopathy of cervical region- Primary Brachial neuritis or radiculitis nos documented [facility]* Diagnosis Inflammatory arthritis- Primary Unspecified inflammatory polyarthropathy Radiculopathy of cervical region- Primary Brachial neuritis or radiculitis nos [facility]* Diagnosis Chronic migraine without aura, with intractable migraine, so stated, with status migrainosus- Primary Temporomandibular joint disorder Temporomandibular joint disorders, unspecified Cervicalgia Radiculopathy of cervical region- Primary Brachial neuritis or radiculitis nos [facility]* Diagnosis Radiculopathy of cervical region- Primary Brachial neuritis or radiculitis nos Inflammatory arthritis Unspecified inflammatory polyarthropathy [facility]* Diagnosis Encounter for long-term (current) use of medications Encounter for long-term (current) use of other medications [facility]* Diagnosis Myofascial muscle pain- Primary Mylagia and myositis, unspecified Chronic neck pain Cervicalgia [facility]* Diagnosis Regular astigmatism of both eyes- Primary Regular astigmatism Dry eye syndrome of bilateral lacrimal glands Tear film insufficiency, unspecified documented [facility]* Diagnosis Pain in right hip- Primary Pain in joint, pelvic region and thigh documented in this [facility]* Diagnosis Right hip impingement syndrome [facility] Diagnosis Inflammatory arthritis- Primary Unspecified inflammatory polyarthropathy Long-term use of immunosuppressant medication Encounter for long-term (current) use of other medications Pain in joint, multiple sites [facility] this [facility]* Diagnosis Inflammatory arthritis- Primary Unspecified inflammatory polyarthropathy [facility]* Diagnosis Right hip impingement syndrome- Primary Chronic neck pain Cervicalgia Myofascial muscle pain Mylagia and myositis, unspecified documented in this [facility]* Diagnosis Insulin resistance- Primary Dysmetabolic Syndrome X Dietary counseling and surveillance Dietary surveillance and counseling documented in this encounter [facility]* Diagnosis Right hip impingement syndrome- Primary Chronic neck pain Cervicalgia Myofascial muscle pain Mylagia and myositis, unspecified documented in this [facility]* Diagnosis Right hip impingement syndrome- Primary Chronic neck pain Cervicalgia Myofascial muscle pain Mylagia and myositis, unspecified documented [facility] this [facility]* Diagnosis Right hip impingement syndrome- Primary Pain in hip Pain in joint, pelvic region and thigh [facility]* Diagnosis Hot flashes- Primary Symptomatic menopausal or female climacteric states Bloating Flatulence, eructation, and gas pain PCOS (polycystic ovarian syndrome) Polycystic ovaries documented [facility]* Diagnosis Malaise and fatigue- Primary Other malaise and fatigue Unintended weight gain Abnormal weight gain Hyperlipidemia, unspecified hyperlipidemia type PCOS (polycystic ovarian syndrome) Polycystic ovaries [facility] this [facility]* Diagnosis Chronic migraine without aura, intractable, without status migrainosus- Primary Temporomandibular joint disorder Temporomandibular joint disorders, unspecified Cervicalgia Chronic migraine without aura, with intractable migraine, so stated, with status migrainosus documented [facility] this [facility]* Diagnosis Abnormal weight gain- Primary [place] BMI 30.0-30.9,adult Body Mass Index 30.0-30.9, adult Abnormal thyroid blood test Nonspecific abnormal results of thyroid function study Insulin resistance Dysmetabolic Syndrome X Impaired fasting glucose documented in this encounter [facility] note* Diagnosis Migraine headaches- Primary documented in this encounter [facility] note* Diagnosis Inflammatory arthritis- Primary Unspecified inflammatory polyarthropathy documented in this encounter [facility] note* Diagnosis Dyslipidemia Other and unspecified hyperlipidemia PCOS (polycystic ovarian syndrome) Polycystic ovaries Impaired fasting blood sugar Impaired fasting glucose Obesity, Class I, BMI 30-34.9 Obesity, unspecified documented in this encounter [facility] note* Diagnosis Dyslipidemia- Primary Other and unspecified hyperlipidemia PCOS (polycystic ovarian syndrome) Polycystic ovaries Impaired fasting blood sugar Impaired fasting glucose Obesity, Class I, BMI 30-34.9 Obesity, unspecified documented in this encounter [facility] note* Diagnosis Family history of hyperlipidemia- Primary Family history of other endocrine and metabolic diseases Hyperlipidemia LDL goal <100 Other and unspecified hyperlipidemia 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 Inflammatory arthritis Unspecified inflammatory polyarthropathy documented in this encounter [facility] note* Diagnosis Acetabular labrum tear, right, subsequent encounter- Primary Right hip impingement syndrome Pain in left hip Pain in joint, pelvic region and thigh documented in this encounter [facility] note* Diagnosis Pain in left hip- Primary Pain in joint, pelvic region and thigh Acetabular labrum tear, right, subsequent encounter documented in this encounter [facility] note* Diagnosis Obesity, Class I, BMI 30-34.9- Primary Obesity, unspecified documented in this encounter [facility] note* Diagnosis Inflammatory arthritis- Primary Unspecified inflammatory polyarthropathy Long-term use of immunosuppressant medication Encounter for long-term (current) use of other medications documented in this encounter [facility] note* Diagnosis Deficiency of multiple nutrient elements- Primary Other nutritional deficiency Bloating Flatulence, eructation, and gas pain Constipation, unspecified constipation type documented in this encounter [facility] note* Diagnosis Impaired fasting blood sugar- Primary Impaired fasting glucose PCOS (polycystic ovarian syndrome) Polycystic ovaries Dyslipidemia Other and unspecified hyperlipidemia Obesity, Class I, BMI 30-34.9 Obesity, unspecified documented in this encounter [facility] note* Diagnosis Dyslipidemia Other and unspecified hyperlipidemia PCOS (polycystic ovarian syndrome) Polycystic ovaries Impaired fasting blood sugar Impaired fasting glucose Obesity, Class I, BMI 30-34.9 Obesity, unspecified [facility]* Diagnosis Inflammatory arthritis- Primary Unspecified inflammatory polyarthropathy [facility]* Diagnosis Temporomandibular joint disorder- Primary Temporomandibular joint disorders, unspecified Chronic migraine without aura, with intractable migraine, so stated, with status migrainosus documented [facility]* Diagnosis Abnormal thyroid blood test- Primary Nonspecific abnormal results of thyroid function study Fatigue, unspecified type Hyponatremia Hyposmolality and/or hyponatremia Myalgia Mylagia and myositis, unspecified Myofascial muscle pain Mylagia and myositis, unspecified [facility]* Diagnosis Thoracic spondylosis with radiculopathy- Primary [facility]* Diagnosis Right hip impingement syndrome- Primary Chronic neck pain Cervicalgia Myofascial muscle pain Mylagia and myositis, unspecified Thoracic spondylosis with radiculopathy [facility]* Diagnosis Thoracic spondylosis with radiculopathy- Primary Thoracic spondylosis with radiculopathy [facility]* Diagnosis Radiculopathy, cervical region- Primary Brachial neuritis or radiculitis nos Paresthesia of right arm Disturbance of skin sensation Numbness and tingling in right hand Disturbance of skin sensation Thoracic spondylosis with radiculopathy [facility]* Diagnosis Impaired fasting glucose- Primary PCOS (polycystic ovarian syndrome) Polycystic ovaries Dyslipidemia Other and unspecified hyperlipidemia Thoracic spondylosis with radiculopathy [facility]* Diagnosis Inflammatory arthritis- Primary Unspecified inflammatory polyarthropathy Radiculopathy, cervical region Brachial neuritis or radiculitis nos Paresthesia of right arm Disturbance of skin sensation Numbness and tingling in right hand Disturbance of skin sensation Thoracic spondylosis with radiculopathy [facility]* Diagnosis Inflammatory arthritis- Primary Unspecified inflammatory polyarthropathy Long-term use of immunosuppressant medication Encounter for long-term (current) use of other medications Pain in joint, multiple sites Thoracic spondylosis with radiculopathy [facility]* Diagnosis Unintended weight gain- Primary Abnormal weight gain BMI 30.0-30.9,adult Body Mass Index 30.0-30.9, adult Thoracic spondylosis with radiculopathy [facility]* Diagnosis Encounter for screening for COVID-19- Primary Thoracic spondylosis with radiculopathy [facility]* Diagnosis Inflammatory arthritis- Primary Unspecified inflammatory polyarthropathy Thoracic spondylosis with radiculopathy [facility]* Diagnosis Unintended weight gain Abnormal weight gain BMI 30.0-30.9,adult Body Mass Index 30.0-30.9, adult documented [facility]* Diagnosis Chronic migraine without aura, intractable, without status migrainosus documented [facility]* Diagnosis Inflammatory arthritis- Primary Unspecified inflammatory polyarthropathy documented [facility]* Diagnosis Inflammatory arthritis- Primary Unspecified inflammatory polyarthropathy [facility]* Diagnosis Tear of right acetabular labrum, subsequent encounter- Primary Tear of right acetabular labrum, subsequent encounter [facility]* Diagnosis Pre-op evaluation- Primary Preoperative examination, unspecified PVC's (premature ventricular contractions) Other premature beats Migraine with aura and without status migrainosus, not intractable Migraine with aura, without mention of intractable migraine without mention of status migrainosus Hypercholesteremia Pure hypercholesterolemia Inflammatory arthritis Unspecified inflammatory polyarthropathy Tear of right acetabular labrum, subsequent encounter [facility]* Diagnosis Tear of right acetabular labrum, subsequent encounter- Primary Tear of right acetabular labrum, subsequent encounter [facility]* Diagnosis Inflammatory arthritis- Primary Unspecified inflammatory polyarthropathy [facility]* Diagnosis Neck pain- Primary Cervicalgia Myofascial muscle pain Mylagia and myositis, unspecified Right hip impingement syndrome Pain in right hip Pain in joint, pelvic region and thigh documented [facility]* Diagnosis Neck pain- Primary Cervicalgia Myofascial muscle pain Mylagia and myositis, unspecified Right hip impingement syndrome documented [facility]* Diagnosis Neck pain- Primary Cervicalgia Myofascial muscle pain Mylagia and myositis, unspecified Right hip impingement syndrome [facility]* Diagnosis Inflammatory arthritis Unspecified inflammatory polyarthropathy PCOS (polycystic ovarian syndrome)- Primary Polycystic ovaries Hyperlipidemia, unspecified hyperlipidemia type Impaired fasting glucose Inflammatory arthritis Unspecified inflammatory polyarthropathy Class 1 obesity with serious comorbidity and body mass index (BMI) of 30.0 to 30.9 in adult, unspecified obesity type documented [facility] this [facility]* Diagnosis Neck pain- Primary Cervicalgia Myofascial muscle pain Mylagia and myositis, unspecified Right hip impingement syndrome documented [facility]* Diagnosis PCOS (polycystic ovarian syndrome)- Primary Polycystic ovaries Hyperlipidemia, unspecified hyperlipidemia type Impaired fasting glucose Inflammatory arthritis Unspecified inflammatory polyarthropathy Vitamin D deficiency Unspecified vitamin D deficiency Thinning hair Alopecia, unspecified Class 1 obesity with serious comorbidity and body mass index (BMI) of 32.0 to 32.9 in adult, unspecified obesity type documented [facility] [facility] Diagnosis Neck pain- Primary Cervicalgia Myofascial muscle pain Mylagia and myositis, unspecified Right hip impingement syndrome documented in this encounter [facility] Diagnosis Neck pain- Primary Cervicalgia Myofascial muscle pain Mylagia and myositis, unspecified Right hip impingement syndrome [facility] Diagnosis Neck pain- Primary Cervicalgia Myofascial muscle pain Mylagia and myositis, unspecified Right hip impingement syndrome [facility] Diagnosis Inflammatory arthritis- Primary Unspecified inflammatory polyarthropathy [facility] Diagnosis Neck pain- Primary Cervicalgia Myofascial muscle pain Mylagia and myositis, unspecified Right hip impingement syndrome [facility] Diagnosis Migraine with aura and without status migrainosus, not intractable- Primary Migraine with aura, without mention of intractable migraine without mention of status migrainosus Chronic migraine without aura, intractable, without status migrainosus Intractable chronic migraine without aura and without status migrainosus Chronic migraine without aura, with intractable migraine, so stated, without mention of status migrainosus Bilateral occipital neuralgia Other syndromes affecting cervical region Cervicalgia [facility] Hyperlipidemia LDL goal <100- Primary Other and unspecified hyperlipidemia Statin intolerance Other drug allergy 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 Family history of hyperlipidemia Family history of other endocrine and metabolic diseases [facility] Diagnosis Neck pain- Primary Cervicalgia Myofascial muscle pain Mylagia and myositis, unspecified Right hip impingement syndrome [facility] Diagnosis Healthcare maintenance- Primary Routine general medical examination at a health care facility [facility] Tear of right acetabular labrum, subsequent encounter- [facility] Diagnosis Neck pain- Primary Cervicalgia Myofascial muscle pain Mylagia and myositis, unspecified Right hip impingement syndrome [facility] Diagnosis Neck pain- Primary Cervicalgia Myofascial muscle pain Mylagia and myositis, unspecified Right hip impingement syndrome [facility] Diagnosis Inflammatory arthritis- Primary Unspecified inflammatory polyarthropathy Long-term use of immunosuppressant medication Encounter for long-term (current) use of other medications [facility] Diagnosis Neck pain- Primary Cervicalgia Myofascial muscle pain Mylagia and myositis, unspecified Right hip impingement syndrome [facility] Diagnosis Family history of hyperlipidemia Family history of other endocrine and metabolic diseases Hyperlipidemia LDL goal <100 Other and unspecified hyperlipidemia 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 [facility] Diagnosis Inflammatory arthritis- Primary Unspecified inflammatory polyarthropathy [facility] Diagnosis Inflammatory arthritis- Primary Unspecified inflammatory polyarthropathy [facility] Diagnosis Unintended weight gain Abnormal weight gain BMI 30.0-30.9,adult Body Mass Index 30.0-30.9, adult [facility] Diagnosis Intractable chronic migraine without aura and without status migrainosus- Primary Chronic migraine without aura, with intractable migraine, so stated, without mention of status migrainosus Radiculopathy, cervical region Brachial neuritis or radiculitis nos Paresthesia of right arm Disturbance of skin sensation Numbness and tingling in right hand Disturbance of skin sensation [facility] Diagnosis Inflammatory arthritis- Primary Unspecified inflammatory polyarthropathy Radiculopathy, cervical region Brachial neuritis or radiculitis nos Paresthesia of right arm Disturbance of skin sensation Numbness and tingling in right hand Disturbance of skin sensation [facility] Diagnosis Diarrhea of presumed infectious origin- Primary Dehydration, mild Dehydration [facility] Diagnosis Inflammatory arthritis- Primary Unspecified inflammatory polyarthropathy [facility] Diagnosis Pelvic pain in female Unspecified symptom associated with female genital organs [facility] Diagnosis Inflammatory arthritis- Primary Unspecified inflammatory polyarthropathy [facility] Diagnosis Inflammatory arthritis- Primary Unspecified inflammatory polyarthropathy [facility] Diagnosis Family history of hyperlipidemia Family history of other endocrine and metabolic diseases Hyperlipidemia LDL goal <100 Other and unspecified hyperlipidemia 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 [facility] Diagnosis Inflammatory arthritis- Primary Unspecified inflammatory polyarthropathy [facility] Diagnosis Neck pain- Primary Cervicalgia [facility] Diagnosis Inflammatory arthritis- Primary Unspecified inflammatory polyarthropathy Long-term use of immunosuppressant medication Encounter for long-term (current) use of other medications Pain in joint, multiple sites Seronegative rheumatoid arthritis (HCC) Rheumatoid arthritis [facility] Diagnosis Spinal stenosis of cervical region- Primary Spinal stenosis in cervical region Radiculopathy, cervical region Brachial neuritis or radiculitis nos [facility] Diagnosis Neck pain- Primary Cervicalgia [facility] Diagnosis Neck pain- Primary Cervicalgia Chronic neck pain Cervicalgia Myofascial muscle pain Mylagia and myositis, unspecified [facility] Diagnosis Screening for thyroid disorder- Primary Screening for lipid disorders [facility] Diagnosis Neck pain- Primary Cervicalgia [facility] Diagnosis Dysuria- Primary [facility] Diagnosis Dysuria- Primary Urinary urgency Urgency of urination Urinary frequency [facility] Diagnosis Spinal stenosis of cervical region- Primary Spinal stenosis in cervical region Radiculopathy, cervical region Brachial neuritis or radiculitis nos [facility] Diagnosis Inflammatory arthritis- Primary Unspecified inflammatory polyarthropathy documented in [facility] Diagnosis Hyponatremia- Primary Hyposmolality and/or hyponatremia Hyponatremia Hyposmolality and/or hyponatremia Hypokalemia Hypopotassemia Tetrahydrocannabinol (THC) use disorder, mild, abuse Acute confusion Delirium due to conditions classified elsewhere Headache disorder Headache Non-intractable vomiting, presence of nausea not specified, unspecified vomiting type Altered mental status, unspecified altered mental status type Acute metabolic encephalopathy Migraine headache with aura Migraine with aura, without mention of intractable migraine without mention of status migrainosus Water intoxication Other fluid overload Chronic TMJ pain Inflammatory arthritis Unspecified inflammatory polyarthropathy Pre-op evaluation- Primary Preoperative examination, unspecified PVC's (premature ventricular contractions) Other premature beats Migraine with aura and without status migrainosus, not intractable Migraine with aura, without mention of intractable migraine without mention of status migrainosus Hypercholesteremia Pure hypercholesterolemia Inflammatory arthritis Unspecified inflammatory polyarthropathy Family history of hyperlipidemia Family history of other endocrine and metabolic diseases Hyperlipidemia LDL goal <100 Other and unspecified hyperlipidemia 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 [facility] Diagnosis Hyponatremia- Primary Hyposmolality and/or hyponatremia Hyponatremia Hyposmolality and/or hyponatremia Hypokalemia Hypopotassemia Tetrahydrocannabinol (THC) use disorder, mild, abuse Acute confusion Delirium due to conditions classified elsewhere Headache disorder Headache Non-intractable vomiting, presence of nausea not specified, unspecified vomiting type Altered mental status, unspecified altered mental status type Acute metabolic encephalopathy Migraine headache with aura Migraine with aura, without mention of intractable migraine without mention of status migrainosus Water intoxication Other fluid overload Chronic TMJ pain Inflammatory arthritis Unspecified inflammatory polyarthropathy Pre-op evaluation- Primary Preoperative examination, unspecified PVC's (premature ventricular contractions) Other premature beats Migraine with aura and without status migrainosus, not intractable Migraine with aura, without mention of intractable migraine without mention of status migrainosus Hypercholesteremia Pure hypercholesterolemia Inflammatory arthritis Unspecified inflammatory polyarthropathy Family history of hyperlipidemia Family history of other endocrine and metabolic diseases Hyperlipidemia LDL goal <100 Other and unspecified hyperlipidemia 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 [facility] Diagnosis Hyponatremia- Primary Hyposmolality and/or hyponatremia Hyponatremia Hyposmolality and/or hyponatremia Hypokalemia Hypopotassemia Tetrahydrocannabinol (THC) use disorder, mild, abuse Acute confusion Delirium due to conditions classified elsewhere Headache disorder Headache Non-intractable vomiting, presence of nausea not specified, unspecified vomiting type Altered mental status, unspecified altered mental status type Acute metabolic encephalopathy Migraine headache with aura Migraine with aura, without mention of intractable migraine without mention of status migrainosus Water intoxication Other fluid overload Chronic TMJ pain Inflammatory arthritis Unspecified inflammatory polyarthropathy Pre-op evaluation- Primary Preoperative examination, unspecified PVC's (premature ventricular contractions) Other premature beats Migraine with aura and without status migrainosus, not intractable Migraine with aura, without mention of intractable migraine without mention of status migrainosus Hypercholesteremia Pure hypercholesterolemia Inflammatory arthritis Unspecified inflammatory polyarthropathy Chronic migraine without aura, intractable, without status migrainosus Temporomandibular joint disorder Temporomandibular joint disorders, unspecified Cervicalgia Chronic migraine without aura, with intractable migraine, so stated, with status migrainosus [facility] Diagnosis Hyponatremia- Primary Hyposmolality and/or hyponatremia Hyponatremia Hyposmolality and/or hyponatremia Hypokalemia Hypopotassemia Tetrahydrocannabinol (THC) use disorder, mild, abuse Acute confusion Delirium due to conditions classified elsewhere Headache disorder Headache Non-intractable vomiting, presence of nausea not specified, unspecified vomiting type Altered mental status, unspecified altered mental status type Acute metabolic encephalopathy Migraine headache with aura Migraine with aura, without mention of intractable migraine without mention of status migrainosus Water intoxication Other fluid overload Chronic TMJ pain Inflammatory arthritis Unspecified inflammatory polyarthropathy Pre-op evaluation- Primary Preoperative examination, unspecified PVC's (premature ventricular contractions) Other premature beats Migraine with aura and without status migrainosus, not intractable Migraine with aura, without mention of intractable migraine without mention of status migrainosus Hypercholesteremia Pure hypercholesterolemia Inflammatory arthritis Unspecified inflammatory polyarthropathy Family history of hyperlipidemia Family history of other endocrine and metabolic diseases Hyperlipidemia LDL goal <100 Other and unspecified hyperlipidemia 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 documented in this encounter [facility]* Diagnosis Hyponatremia- Primary Hyposmolality and/or hyponatremia Hyponatremia Hyposmolality and/or hyponatremia Hypokalemia Hypopotassemia Tetrahydrocannabinol (THC) use disorder, mild, abuse Acute confusion Delirium due to conditions classified elsewhere Headache disorder Headache Non-intractable vomiting, presence of nausea not specified, unspecified vomiting type Altered mental status, unspecified altered mental status type Acute metabolic encephalopathy Migraine headache with aura Migraine with aura, without mention of intractable migraine without mention of status migrainosus Water intoxication Other fluid overload Chronic TMJ pain Inflammatory arthritis Unspecified inflammatory polyarthropathy Pre-op evaluation- Primary Preoperative examination, unspecified PVC's (premature ventricular contractions) Other premature beats Migraine with aura and without status migrainosus, not intractable Migraine with aura, without mention of intractable migraine without mention of status migrainosus Hypercholesteremia Pure hypercholesterolemia Inflammatory arthritis Unspecified inflammatory polyarthropathy Inflammatory arthritis- Primary Unspecified inflammatory polyarthropathy documented in this encounter [facility]* Diagnosis Hyponatremia- Primary Hyposmolality and/or hyponatremia Hyponatremia Hyposmolality and/or hyponatremia Hypokalemia Hypopotassemia Tetrahydrocannabinol (THC) use disorder, mild, abuse Acute confusion Delirium due to conditions classified elsewhere Headache disorder Headache Non-intractable vomiting, presence of nausea not specified, unspecified vomiting type Altered mental status, unspecified altered mental status type Acute metabolic encephalopathy Migraine headache with aura Migraine with aura, without mention of intractable migraine without mention of status migrainosus Water intoxication Other fluid overload Chronic TMJ pain Inflammatory arthritis Unspecified inflammatory polyarthropathy Pre-op evaluation- Primary Preoperative examination, unspecified PVC's (premature ventricular contractions) Other premature beats Migraine with aura and without status migrainosus, not intractable Migraine with aura, without mention of intractable migraine without mention of status migrainosus Hypercholesteremia Pure hypercholesterolemia Inflammatory arthritis Unspecified inflammatory polyarthropathy Inflammatory arthritis- Primary Unspecified inflammatory polyarthropathy [facility] Diagnosis Hyponatremia- Primary Hyposmolality and/or hyponatremia Hyponatremia Hyposmolality and/or hyponatremia Hypokalemia Hypopotassemia Tetrahydrocannabinol (THC) use disorder, mild, abuse Acute confusion Delirium due to conditions classified elsewhere Headache disorder Headache Non-intractable vomiting, presence of nausea not specified, unspecified vomiting type Altered mental status, unspecified altered mental status type Acute metabolic encephalopathy Migraine headache with aura Migraine with aura, without mention of intractable migraine without mention of status migrainosus Water intoxication Other fluid overload Chronic TMJ pain Inflammatory arthritis Unspecified inflammatory polyarthropathy Pre-op evaluation- Primary Preoperative examination, unspecified PVC's (premature ventricular contractions) Other premature beats Migraine with aura and without status migrainosus, not intractable Migraine with aura, without mention of intractable migraine without mention of status migrainosus Hypercholesteremia Pure hypercholesterolemia Inflammatory arthritis Unspecified inflammatory polyarthropathy Spinal stenosis of cervical region Spinal stenosis in cervical region Radiculopathy, cervical region Brachial neuritis or radiculitis nos [facility] Diagnosis Hyponatremia- Primary Hyposmolality and/or hyponatremia Hyponatremia Hyposmolality and/or hyponatremia Hypokalemia Hypopotassemia Tetrahydrocannabinol (THC) use disorder, mild, abuse Acute confusion Delirium due to conditions classified elsewhere Headache disorder Headache Non-intractable vomiting, presence of nausea not specified, unspecified vomiting type Altered mental status, unspecified altered mental status type Acute metabolic encephalopathy Migraine headache with aura Migraine with aura, without mention of intractable migraine without mention of status migrainosus Water intoxication Other fluid overload Chronic TMJ pain Inflammatory arthritis Unspecified inflammatory polyarthropathy Tear of right acetabular labrum, subsequent encounter Pre-op evaluation- Primary Preoperative examination, unspecified PVC's (premature ventricular contractions) Other premature beats Migraine with aura and without status migrainosus, not intractable Migraine with aura, without mention of intractable migraine without mention of status migrainosus Hypercholesteremia Pure hypercholesterolemia Inflammatory arthritis Unspecified inflammatory polyarthropathy [facility] Diagnosis Hyponatremia- Primary Hyposmolality and/or hyponatremia Hyponatremia Hyposmolality and/or hyponatremia Hypokalemia Hypopotassemia Tetrahydrocannabinol (THC) use disorder, mild, abuse Acute confusion Delirium due to conditions classified elsewhere Headache disorder Headache Non-intractable vomiting, presence of nausea not specified, unspecified vomiting type Altered mental status, unspecified altered mental status type Acute metabolic encephalopathy Migraine headache with aura Migraine with aura, without mention of intractable migraine without mention of status migrainosus Water intoxication Other fluid overload Chronic TMJ pain Inflammatory arthritis Unspecified inflammatory polyarthropathy Pre-op evaluation- Primary Preoperative examination, unspecified PVC's (premature ventricular contractions) Other premature beats Migraine with aura and without status migrainosus, not intractable Migraine with aura, without mention of intractable migraine without mention of status migrainosus Hypercholesteremia Pure hypercholesterolemia Inflammatory arthritis Unspecified inflammatory polyarthropathy Spinal stenosis of cervical region- Primary Spinal stenosis in cervical region Radiculopathy, cervical region Brachial neuritis or radiculitis nos [facility] Diagnosis Hyponatremia- Primary Hyposmolality and/or hyponatremia Hyponatremia Hyposmolality and/or hyponatremia Hypokalemia Hypopotassemia Tetrahydrocannabinol (THC) use disorder, mild, abuse Acute confusion Delirium due to conditions classified elsewhere Headache disorder Headache Non-intractable vomiting, presence of nausea not specified, unspecified vomiting type Altered mental status, unspecified altered mental status type Acute metabolic encephalopathy Migraine headache with aura Migraine with aura, without mention of intractable migraine without mention of status migrainosus Water intoxication Other fluid overload Chronic TMJ pain Inflammatory arthritis Unspecified inflammatory polyarthropathy Pre-op evaluation- Primary Preoperative examination, unspecified PVC's (premature ventricular contractions) Other premature beats Migraine with aura and without status migrainosus, not intractable Migraine with aura, without mention of intractable migraine without mention of status migrainosus Hypercholesteremia Pure hypercholesterolemia Inflammatory arthritis Unspecified inflammatory polyarthropathy PCOS (polycystic ovarian syndrome)- Primary Polycystic ovaries Impaired fasting glucose Inflammatory arthritis Unspecified inflammatory polyarthropathy History of obesity Personal history of other specified diseases [facility] Diagnosis Hyponatremia- Primary Hyposmolality and/or hyponatremia Hyponatremia Hyposmolality and/or hyponatremia Hypokalemia Hypopotassemia Tetrahydrocannabinol (THC) use disorder, mild, abuse Acute confusion Delirium due to conditions classified elsewhere Headache disorder Headache Non-intractable vomiting, presence of nausea not specified, unspecified vomiting type Altered mental status, unspecified altered mental status type Acute metabolic encephalopathy Migraine headache with aura Migraine with aura, without mention of intractable migraine without mention of status migrainosus Water intoxication Other fluid overload Chronic TMJ pain Inflammatory arthritis Unspecified inflammatory polyarthropathy Right hip impingement syndrome Pre-op evaluation- Primary Preoperative examination, unspecified PVC's (premature ventricular contractions) Other premature beats Migraine with aura and without status migrainosus, not intractable Migraine with aura, without mention of intractable migraine without mention of status migrainosus Hypercholesteremia Pure hypercholesterolemia Inflammatory arthritis Unspecified inflammatory polyarthropathy documented in this encounter [facility] note* Diagnosis Hyponatremia- Primary Hyposmolality and/or hyponatremia Hyponatremia Hyposmolality and/or hyponatremia Hypokalemia Hypopotassemia Tetrahydrocannabinol (THC) use disorder, mild, abuse Acute confusion Delirium due to conditions classified elsewhere Headache disorder Headache Non-intractable vomiting, presence of nausea not specified, unspecified vomiting type Altered mental status, unspecified altered mental status type Acute metabolic encephalopathy Migraine headache with aura Migraine with aura, without mention of intractable migraine without mention of status migrainosus Water intoxication Other fluid overload Chronic TMJ pain Inflammatory arthritis Unspecified inflammatory polyarthropathy Pain in right hip Pain in joint, pelvic region and thigh Pre-op evaluation- Primary Preoperative examination, unspecified PVC's (premature ventricular contractions) Other premature beats Migraine with aura and without status migrainosus, not intractable Migraine with aura, without mention of intractable migraine without mention of status migrainosus Hypercholesteremia Pure hypercholesterolemia Inflammatory arthritis Unspecified inflammatory polyarthropathy [facility] Diagnosis Hyponatremia- Primary Hyposmolality and/or hyponatremia Hyponatremia Hyposmolality and/or hyponatremia Hypokalemia Hypopotassemia Tetrahydrocannabinol (THC) use disorder, mild, abuse Acute confusion Delirium due to conditions classified elsewhere Headache disorder Headache Non-intractable vomiting, presence of nausea not specified, unspecified vomiting type Altered mental status, unspecified altered mental status type Acute metabolic encephalopathy Migraine headache with aura Migraine with aura, without mention of intractable migraine without mention of status migrainosus Water intoxication Other fluid overload Chronic TMJ pain Inflammatory arthritis Unspecified inflammatory polyarthropathy Pre-op evaluation- Primary Preoperative examination, unspecified PVC's (premature ventricular contractions) Other premature beats Migraine with aura and without status migrainosus, not intractable Migraine with aura, without mention of intractable migraine without mention of status migrainosus Hypercholesteremia Pure hypercholesterolemia Inflammatory arthritis Unspecified inflammatory polyarthropathy Inflammatory arthritis- Primary Unspecified inflammatory polyarthropathy Seronegative rheumatoid arthritis (HCC) Rheumatoid arthritis Long-term use of immunosuppressant medication Encounter for long-term (current) use of other medications Pain in joint, multiple sites [facility] Diagnosis Hyponatremia- Primary Hyposmolality and/or hyponatremia Hyponatremia Hyposmolality and/or hyponatremia Hypokalemia Hypopotassemia Tetrahydrocannabinol (THC) use disorder, mild, abuse Acute confusion Delirium due to conditions classified elsewhere Headache disorder Headache Non-intractable vomiting, presence of nausea not specified, unspecified vomiting type Altered mental status, unspecified altered mental status type Acute metabolic encephalopathy Migraine headache with aura Migraine with aura, without mention of intractable migraine without mention of status migrainosus Water intoxication Other fluid overload Chronic TMJ pain Inflammatory arthritis Unspecified inflammatory polyarthropathy Pre-op evaluation- Primary Preoperative examination, unspecified PVC's (premature ventricular contractions) Other premature beats Migraine with aura and without status migrainosus, not intractable Migraine with aura, without mention of intractable migraine without mention of status migrainosus Hypercholesteremia Pure hypercholesterolemia Inflammatory arthritis Unspecified inflammatory polyarthropathy Seronegative rheumatoid arthritis (HCC)- Primary Rheumatoid arthritis Inflammatory arthritis Unspecified inflammatory polyarthropathy Pain in joint, multiple sites Long-term use of immunosuppressant medication Encounter for long-term (current) use of other medications [facility] Diagnosis Hyponatremia- Primary Hyposmolality and/or hyponatremia Hyponatremia Hyposmolality and/or hyponatremia Hypokalemia Hypopotassemia Tetrahydrocannabinol (THC) use disorder, mild, abuse Acute confusion Delirium due to conditions classified elsewhere Headache disorder Headache Non-intractable vomiting, presence of nausea not specified, unspecified vomiting type Altered mental status, unspecified altered mental status type Acute metabolic encephalopathy Migraine headache with aura Migraine with aura, without mention of intractable migraine without mention of status migrainosus Water intoxication Other fluid overload Chronic TMJ pain Inflammatory arthritis Unspecified inflammatory polyarthropathy Pre-op evaluation- Primary Preoperative examination, unspecified PVC's (premature ventricular contractions) Other premature beats Migraine with aura and without status migrainosus, not intractable Migraine with aura, without mention of intractable migraine without mention of status migrainosus Hypercholesteremia Pure hypercholesterolemia Inflammatory arthritis Unspecified inflammatory polyarthropathy Spinal stenosis of cervical region Spinal stenosis in cervical region Radiculopathy, cervical region Brachial neuritis or radiculitis nos documented in this encounter [facility] note* Diagnosis Hyponatremia- Primary Hyposmolality and/or hyponatremia Hyponatremia Hyposmolality and/or hyponatremia Hypokalemia Hypopotassemia Tetrahydrocannabinol (THC) use disorder, mild, abuse Acute confusion Delirium due to conditions classified elsewhere Headache disorder Headache Non-intractable vomiting, presence of nausea not specified, unspecified vomiting type Altered mental status, unspecified altered mental status type Acute metabolic encephalopathy Migraine headache with aura Migraine with aura, without mention of intractable migraine without mention of status migrainosus Water intoxication Other fluid overload Chronic TMJ pain Inflammatory arthritis Unspecified inflammatory polyarthropathy Pre-op evaluation- Primary Preoperative examination, unspecified PVC's (premature ventricular contractions) Other premature beats Migraine with aura and without status migrainosus, not intractable Migraine with aura, without mention of intractable migraine without mention of status migrainosus Hypercholesteremia Pure hypercholesterolemia Inflammatory arthritis Unspecified inflammatory polyarthropathy Spinal stenosis of cervical region- Primary Spinal stenosis in cervical region Radiculopathy, cervical region Brachial neuritis or radiculitis nos documented in this encounter [facility] note* Diagnosis Hyponatremia- Primary Hyposmolality and/or hyponatremia Hyponatremia Hyposmolality and/or hyponatremia Hypokalemia Hypopotassemia Tetrahydrocannabinol (THC) use disorder, mild, abuse Acute confusion Delirium due to conditions classified elsewhere Headache disorder Headache Non-intractable vomiting, presence of nausea not specified, unspecified vomiting type Altered mental status, unspecified altered mental status type Acute metabolic encephalopathy Migraine headache with aura Migraine with aura, without mention of intractable migraine without mention of status migrainosus Water intoxication Other fluid overload Chronic TMJ pain Inflammatory arthritis Unspecified inflammatory polyarthropathy Pre-op evaluation- Primary Preoperative examination, unspecified PVC's (premature ventricular contractions) Other premature beats Migraine with aura and without status migrainosus, not intractable Migraine with aura, without mention of intractable migraine without mention of status migrainosus Hypercholesteremia Pure hypercholesterolemia Inflammatory arthritis Unspecified inflammatory polyarthropathy Herniation of cervical intervertebral disc with radiculopathy- Primary Displacement of cervical intervertebral disc without myelopathy Foraminal stenosis of cervical region Spinal stenosis in cervical region Cervical myofascial pain syndrome Mylagia and myositis, unspecified [facility] Diagnosis Hyponatremia- Primary Hyposmolality and/or hyponatremia Hyponatremia Hyposmolality and/or hyponatremia Hypokalemia Hypopotassemia Tetrahydrocannabinol (THC) use disorder, mild, abuse Acute confusion Delirium due to conditions classified elsewhere Headache disorder Headache Non-intractable vomiting, presence of nausea not specified, unspecified vomiting type Altered mental status, unspecified altered mental status type Acute metabolic encephalopathy Migraine headache with aura Migraine with aura, without mention of intractable migraine without mention of status migrainosus Water intoxication Other fluid overload Chronic TMJ pain Inflammatory arthritis Unspecified inflammatory polyarthropathy Pre-op evaluation- Primary Preoperative examination, unspecified PVC's (premature ventricular contractions) Other premature beats Migraine with aura and without status migrainosus, not intractable Migraine with aura, without mention of intractable migraine without mention of status migrainosus Hypercholesteremia Pure hypercholesterolemia Inflammatory arthritis Unspecified inflammatory polyarthropathy Herniation of cervical intervertebral disc with radiculopathy- Primary Displacement of cervical intervertebral disc without myelopathy Foraminal stenosis of cervical region Spinal stenosis in cervical region Radiculopathy, cervical region Brachial neuritis or radiculitis nos Herniation of cervical intervertebral disc with radiculopathy Displacement of cervical intervertebral disc without myelopathy Foraminal stenosis of cervical region Spinal stenosis in cervical region Radiculopathy, cervical region Brachial neuritis or radiculitis nos [facility]* Diagnosis Hyponatremia- Primary Hyposmolality and/or hyponatremia Hyponatremia Hyposmolality and/or hyponatremia Hypokalemia Hypopotassemia Tetrahydrocannabinol (THC) use disorder, mild, abuse Acute confusion Delirium due to conditions classified elsewhere Headache disorder Headache Non-intractable vomiting, presence of nausea not specified, unspecified vomiting type Altered mental status, unspecified altered mental status type Acute metabolic encephalopathy Migraine headache with aura Migraine with aura, without mention of intractable migraine without mention of status migrainosus Water intoxication Other fluid overload Chronic TMJ pain Inflammatory arthritis Unspecified inflammatory polyarthropathy Pre-op evaluation- Primary Preoperative examination, unspecified PVC's (premature ventricular contractions) Other premature beats Migraine with aura and without status migrainosus, not intractable Migraine with aura, without mention of intractable migraine without mention of status migrainosus Hypercholesteremia Pure hypercholesterolemia Inflammatory arthritis Unspecified inflammatory polyarthropathy Family history of hyperlipidemia Family history of other endocrine and metabolic diseases Hyperlipidemia LDL goal <100 Other and unspecified hyperlipidemia 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 Displacement of cervical intervertebral disc without myelopathy Foraminal stenosis of cervical region Spinal stenosis in cervical region Radiculopathy, cervical region Brachial neuritis or radiculitis nos [facility]* Diagnosis Hyponatremia- Primary Hyposmolality and/or hyponatremia Hyponatremia Hyposmolality and/or hyponatremia Hypokalemia Hypopotassemia Tetrahydrocannabinol (THC) use disorder, mild, abuse Acute confusion Delirium due to conditions classified elsewhere Headache disorder Headache Non-intractable vomiting, presence of nausea not specified, unspecified vomiting type Altered mental status, unspecified altered mental status type Acute metabolic encephalopathy Migraine headache with aura Migraine with aura, without mention of intractable migraine without mention of status migrainosus Water intoxication Other fluid overload Chronic TMJ pain Inflammatory arthritis Unspecified inflammatory polyarthropathy Pre-op evaluation- Primary Preoperative examination, unspecified PVC's (premature ventricular contractions) Other premature beats Migraine with aura and without status migrainosus, not intractable Migraine with aura, without mention of intractable migraine without mention of status migrainosus Hypercholesteremia Pure hypercholesterolemia Inflammatory arthritis Unspecified inflammatory polyarthropathy Dysuria- Primary Urinary urgency Urgency of urination Herniation of cervical intervertebral disc with radiculopathy Displacement of cervical intervertebral disc without myelopathy Foraminal stenosis of cervical region Spinal stenosis in cervical region Radiculopathy, cervical region Brachial neuritis or radiculitis nos [facility]* Diagnosis Hyponatremia- Primary Hyposmolality and/or hyponatremia Hyponatremia Hyposmolality and/or hyponatremia Hypokalemia Hypopotassemia Tetrahydrocannabinol (THC) use disorder, mild, abuse Acute confusion Delirium due to conditions classified elsewhere Headache disorder Headache Non-intractable vomiting, presence of nausea not specified, unspecified vomiting type Altered mental status, unspecified altered mental status type Acute metabolic encephalopathy Migraine headache with aura Migraine with aura, without mention of intractable migraine without mention of status migrainosus Water intoxication Other fluid overload Chronic TMJ pain Inflammatory arthritis Unspecified inflammatory polyarthropathy Pre-op evaluation- Primary Preoperative examination, unspecified PVC's (premature ventricular contractions) Other premature beats Migraine with aura and without status migrainosus, not intractable Migraine with aura, without mention of intractable migraine without mention of status migrainosus Hypercholesteremia Pure hypercholesterolemia Inflammatory arthritis Unspecified inflammatory polyarthropathy Spinal stenosis of cervical region- Primary Spinal stenosis in cervical region Radiculopathy, cervical region Brachial neuritis or radiculitis nos Herniation of cervical intervertebral disc with radiculopathy Displacement of cervical intervertebral disc without myelopathy Foraminal stenosis of cervical region Spinal stenosis in cervical region Radiculopathy, cervical region Brachial neuritis or radiculitis nos [facility] Diagnosis Hyponatremia- Primary Hyposmolality and/or hyponatremia Hyponatremia Hyposmolality and/or hyponatremia Hypokalemia Hypopotassemia Tetrahydrocannabinol (THC) use disorder, mild, abuse Acute confusion Delirium due to conditions classified elsewhere Headache disorder Headache Non-intractable vomiting, presence of nausea not specified, unspecified vomiting type Altered mental status, unspecified altered mental status type Acute metabolic encephalopathy Migraine headache with aura Migraine with aura, without mention of intractable migraine without mention of status migrainosus Water intoxication Other fluid overload Chronic TMJ pain Inflammatory arthritis Unspecified inflammatory polyarthropathy Pre-op evaluation- Primary Preoperative examination, unspecified PVC's (premature ventricular contractions) Other premature beats Migraine with aura and without status migrainosus, not intractable Migraine with aura, without mention of intractable migraine without mention of status migrainosus Hypercholesteremia Pure hypercholesterolemia Inflammatory arthritis Unspecified inflammatory polyarthropathy Unintended weight gain Abnormal weight gain BMI 30.0-30.9,adult Body Mass Index 30.0-30.9, adult [facility] Diagnosis Hyponatremia- Primary Hyposmolality and/or hyponatremia Hyponatremia Hyposmolality and/or hyponatremia Hypokalemia Hypopotassemia Tetrahydrocannabinol (THC) use disorder, mild, abuse Acute confusion Delirium due to conditions classified elsewhere Headache disorder Headache Non-intractable vomiting, presence of nausea not specified, unspecified vomiting type Altered mental status, unspecified altered mental status type Acute metabolic encephalopathy Migraine headache with aura Migraine with aura, without mention of intractable migraine without mention of status migrainosus Water intoxication Other fluid overload Chronic TMJ pain Inflammatory arthritis Unspecified inflammatory polyarthropathy Pre-op evaluation- Primary Preoperative examination, unspecified PVC's (premature ventricular contractions) Other premature beats Migraine with aura and without status migrainosus, not intractable Migraine with aura, without mention of intractable migraine without mention of status migrainosus Hypercholesteremia Pure hypercholesterolemia Inflammatory arthritis Unspecified inflammatory polyarthropathy Routine physical examination- Primary Routine general medical examination at a health care facility Numbness and tingling of both legs Disturbance of skin sensation Paresthesia of both hands Poor short term memory Memory loss Word finding difficulty Problems with communication (including speech) Worsening headaches Headache Thunderclap headache Headache Chest pain, unspecified type Recurrent UTI (urinary tract infection) Urinary tract infection, site not specified Vitamin D deficiency Unspecified vitamin D deficiency Hypersomnolence Hypersomnia, unspecified Fatigue, unspecified type Hyperlipidemia, mixed Mixed hyperlipidemia [facility] Diagnosis Hyponatremia- Primary Hyposmolality and/or hyponatremia Hyponatremia Hyposmolality and/or hyponatremia Hypokalemia Hypopotassemia Tetrahydrocannabinol (THC) use disorder, mild, abuse Acute confusion Delirium due to conditions classified elsewhere Headache disorder Headache Non-intractable vomiting, presence of nausea not specified, unspecified vomiting type Altered mental status, unspecified altered mental status type Acute metabolic encephalopathy Migraine headache with aura Migraine with aura, without mention of intractable migraine without mention of status migrainosus Water intoxication Other fluid overload Chronic TMJ pain Inflammatory arthritis Unspecified inflammatory polyarthropathy Pre-op evaluation- Primary Preoperative examination, unspecified PVC's (premature ventricular contractions) Other premature beats Migraine with aura and without status migrainosus, not intractable Migraine with aura, without mention of intractable migraine without mention of status migrainosus Hypercholesteremia Pure hypercholesterolemia Inflammatory arthritis Unspecified inflammatory polyarthropathy Seronegative rheumatoid arthritis (HCC)- Primary Rheumatoid arthritis [facility]* Diagnosis Hyponatremia- Primary Hyposmolality and/or hyponatremia Hyponatremia Hyposmolality and/or hyponatremia Hypokalemia Hypopotassemia Tetrahydrocannabinol (THC) use disorder, mild, abuse Acute confusion Delirium due to conditions classified elsewhere Headache disorder Headache Non-intractable vomiting, presence of nausea not specified, unspecified vomiting type Altered mental status, unspecified altered mental status type Acute metabolic encephalopathy Migraine headache with aura Migraine with aura, without mention of intractable migraine without mention of status migrainosus Water intoxication Other fluid overload Chronic TMJ pain Inflammatory arthritis Unspecified inflammatory polyarthropathy Pre-op evaluation- Primary Preoperative examination, unspecified PVC's (premature ventricular contractions) Other premature beats Migraine with aura and without status migrainosus, not intractable Migraine with aura, without mention of intractable migraine without mention of status migrainosus Hypercholesteremia Pure hypercholesterolemia Inflammatory arthritis Unspecified inflammatory polyarthropathy Gastroesophageal reflux disease, unspecified whether esophagitis present- Primary documented in this encounter [facility] note* Diagnosis Hyponatremia- Primary Hyposmolality and/or hyponatremia Hyponatremia Hyposmolality and/or hyponatremia Hypokalemia Hypopotassemia Tetrahydrocannabinol (THC) use disorder, mild, abuse Acute confusion Delirium due to conditions classified elsewhere Headache disorder Headache Non-intractable vomiting, presence of nausea not specified, unspecified vomiting type Altered mental status, unspecified altered mental status type Acute metabolic encephalopathy Migraine headache with aura Migraine with aura, without mention of intractable migraine without mention of status migrainosus Water intoxication Other fluid overload Chronic TMJ pain Inflammatory arthritis Unspecified inflammatory polyarthropathy Pre-op evaluation- Primary Preoperative examination, unspecified PVC's (premature ventricular contractions) Other premature beats Migraine with aura and without status migrainosus, not intractable Migraine with aura, without mention of intractable migraine without mention of status migrainosus Hypercholesteremia Pure hypercholesterolemia Inflammatory arthritis Unspecified inflammatory polyarthropathy Chronic migraine without aura, intractable, without status migrainosus- Primary Chronic daily headache Headache Intractable chronic migraine without aura and without status migrainosus Chronic migraine without aura, with intractable migraine, so stated, without mention of status migrainosus Bilateral occipital neuralgia Other syndromes affecting cervical region Migraine with aura and without status migrainosus, not intractable Migraine with aura, without mention of intractable migraine without mention of status migrainosus Cervicalgia Cervicogenic headache Headache Spasm of muscle documented in this encounter [facility] note* Diagnosis Hyponatremia- Primary Hyposmolality and/or hyponatremia Hyponatremia Hyposmolality and/or hyponatremia Hypokalemia Hypopotassemia Tetrahydrocannabinol (THC) use disorder, mild, abuse Acute confusion Delirium due to conditions classified elsewhere Headache disorder Headache Non-intractable vomiting, presence of nausea not specified, unspecified vomiting type Altered mental status, unspecified altered mental status type Acute metabolic encephalopathy Migraine headache with aura Migraine with aura, without mention of intractable migraine without mention of status migrainosus Water intoxication Other fluid overload Chronic TMJ pain Inflammatory arthritis Unspecified inflammatory polyarthropathy Pre-op evaluation- Primary Preoperative examination, unspecified PVC's (premature ventricular contractions) Other premature beats Migraine with aura and without status migrainosus, not intractable Migraine with aura, without mention of intractable migraine without mention of status migrainosus Hypercholesteremia Pure hypercholesterolemia Inflammatory arthritis Unspecified inflammatory polyarthropathy Thunderclap headache Headache documented in this encounter [facility] note* Diagnosis Hyponatremia- Primary Hyposmolality and/or hyponatremia Hyponatremia Hyposmolality and/or hyponatremia Hypokalemia Hypopotassemia Tetrahydrocannabinol (THC) use disorder, mild, abuse Acute confusion Delirium due to conditions classified elsewhere Headache disorder Headache Non-intractable vomiting, presence of nausea not specified, unspecified vomiting type Altered mental status, unspecified altered mental status type Acute metabolic encephalopathy Migraine headache with aura Migraine with aura, without mention of intractable migraine without mention of status migrainosus Water intoxication Other fluid overload Chronic TMJ pain Inflammatory arthritis Unspecified inflammatory polyarthropathy Pre-op evaluation- Primary Preoperative examination, unspecified PVC's (premature ventricular contractions) Other premature beats Migraine with aura and without status migrainosus, not intractable Migraine with aura, without mention of intractable migraine without mention of status migrainosus Hypercholesteremia Pure hypercholesterolemia Inflammatory arthritis Unspecified inflammatory polyarthropathy Encounter for screening mammogram for breast cancer documented in this encounter [facility] note* Diagnosis Hyponatremia- Primary Hyposmolality and/or hyponatremia Hyponatremia Hyposmolality and/or hyponatremia Hypokalemia Hypopotassemia Tetrahydrocannabinol (THC) use disorder, mild, abuse Acute confusion Delirium due to conditions classified elsewhere Headache disorder Headache Non-intractable vomiting, presence of nausea not specified, unspecified vomiting type Altered mental status, unspecified altered mental status type Acute metabolic encephalopathy Migraine headache with aura Migraine with aura, without mention of intractable migraine without mention of status migrainosus Water intoxication Other fluid overload Chronic TMJ pain Inflammatory arthritis Unspecified inflammatory polyarthropathy Pre-op evaluation- Primary Preoperative examination, unspecified PVC's (premature ventricular contractions) Other premature beats Migraine with aura and without status migrainosus, not intractable Migraine with aura, without mention of intractable migraine without mention of status migrainosus Hypercholesteremia Pure hypercholesterolemia Inflammatory arthritis Unspecified inflammatory polyarthropathy Chronic migraine without aura, intractable, without status migrainosus [facility] Diagnosis Hyponatremia- Primary Hyposmolality and/or hyponatremia Hyponatremia Hyposmolality and/or hyponatremia Hypokalemia Hypopotassemia Tetrahydrocannabinol (THC) use disorder, mild, abuse Acute confusion Delirium due to conditions classified elsewhere Headache disorder Headache Non-intractable vomiting, presence of nausea not specified, unspecified vomiting type Altered mental status, unspecified altered mental status type Acute metabolic encephalopathy Migraine headache with aura Migraine with aura, without mention of intractable migraine without mention of status migrainosus Water intoxication Other fluid overload Chronic TMJ pain Inflammatory arthritis Unspecified inflammatory polyarthropathy Pre-op evaluation- Primary Preoperative examination, unspecified PVC's (premature ventricular contractions) Other premature beats Migraine with aura and without status migrainosus, not intractable Migraine with aura, without mention of intractable migraine without mention of status migrainosus Hypercholesteremia Pure hypercholesterolemia Inflammatory arthritis Unspecified inflammatory polyarthropathy Inflammatory arthritis- Primary Unspecified inflammatory polyarthropathy Long-term use of immunosuppressant medication Encounter for long-term (current) use of other medications Pain in joint, multiple sites Chronic midline low back pain without sciatica Chronic neck pain Cervicalgia Myofascial muscle pain Mylagia and myositis, unspecified [facility] Diagnosis Hyponatremia- Primary Hyposmolality and/or hyponatremia Hyponatremia Hyposmolality and/or hyponatremia Hypokalemia Hypopotassemia Tetrahydrocannabinol (THC) use disorder, mild, abuse Acute confusion Delirium due to conditions classified elsewhere Headache disorder Headache Non-intractable vomiting, presence of nausea not specified, unspecified vomiting type Altered mental status, unspecified altered mental status type Acute metabolic encephalopathy Migraine headache with aura Migraine with aura, without mention of intractable migraine without mention of status migrainosus Water intoxication Other fluid overload Chronic TMJ pain Inflammatory arthritis Unspecified inflammatory polyarthropathy Pre-op evaluation- Primary Preoperative examination, unspecified PVC's (premature ventricular contractions) Other premature beats Migraine with aura and without status migrainosus, not intractable Migraine with aura, without mention of intractable migraine without mention of status migrainosus Hypercholesteremia Pure hypercholesterolemia Inflammatory arthritis Unspecified inflammatory polyarthropathy Spinal stenosis of cervical region- Primary Spinal stenosis in cervical region Radiculopathy, cervical region Brachial neuritis or radiculitis nos [facility] Diagnosis Hyponatremia- Primary Hyposmolality and/or hyponatremia Hyponatremia Hyposmolality and/or hyponatremia Hypokalemia Hypopotassemia Tetrahydrocannabinol (THC) use disorder, mild, abuse Acute confusion Delirium due to conditions classified elsewhere Headache disorder Headache Non-intractable vomiting, presence of nausea not specified, unspecified vomiting type Altered mental status, unspecified altered mental status type Acute metabolic encephalopathy Migraine headache with aura Migraine with aura, without mention of intractable migraine without mention of status migrainosus Water intoxication Other fluid overload Chronic TMJ pain Inflammatory arthritis Unspecified inflammatory polyarthropathy Pre-op evaluation- Primary Preoperative examination, unspecified PVC's (premature ventricular contractions) Other premature beats Migraine with aura and without status migrainosus, not intractable Migraine with aura, without mention of intractable migraine without mention of status migrainosus Hypercholesteremia Pure hypercholesterolemia Inflammatory arthritis Unspecified inflammatory polyarthropathy Encounter for screening mammogram for breast cancer Encounter for screening mammogram for breast cancer documented in this encounter [facility] note* Diagnosis Hyponatremia- Primary Hyposmolality and/or hyponatremia Hyponatremia Hyposmolality and/or hyponatremia Hypokalemia Hypopotassemia Tetrahydrocannabinol (THC) use disorder, mild, abuse Acute confusion Delirium due to conditions classified elsewhere Headache disorder Headache Non-intractable vomiting, presence of nausea not specified, unspecified vomiting type Altered mental status, unspecified altered mental status type Acute metabolic encephalopathy Migraine headache with aura Migraine with aura, without mention of intractable migraine without mention of status migrainosus Water intoxication Other fluid overload Chronic TMJ pain Inflammatory arthritis Unspecified inflammatory polyarthropathy Pre-op evaluation- Primary Preoperative examination, unspecified PVC's (premature ventricular contractions) Other premature beats Migraine with aura and without status migrainosus, not intractable Migraine with aura, without mention of intractable migraine without mention of status migrainosus Hypercholesteremia Pure hypercholesterolemia Inflammatory arthritis Unspecified inflammatory polyarthropathy Seronegative rheumatoid arthritis (HCC)- Primary Rheumatoid arthritis [facility] Diagnosis Hyponatremia- Primary Hyposmolality and/or hyponatremia Hyponatremia Hyposmolality and/or hyponatremia Hypokalemia Hypopotassemia Tetrahydrocannabinol (THC) use disorder, mild, abuse Acute confusion Delirium due to conditions classified elsewhere Headache disorder Headache Non-intractable vomiting, presence of nausea not specified, unspecified vomiting type Altered mental status, unspecified altered mental status type Acute metabolic encephalopathy Migraine headache with aura Migraine with aura, without mention of intractable migraine without mention of status migrainosus Water intoxication Other fluid overload Chronic TMJ pain Inflammatory arthritis Unspecified inflammatory polyarthropathy Pre-op evaluation- Primary Preoperative examination, unspecified PVC's (premature ventricular contractions) Other premature beats Migraine with aura and without status migrainosus, not intractable Migraine with aura, without mention of intractable migraine without mention of status migrainosus Hypercholesteremia Pure hypercholesterolemia Inflammatory arthritis Unspecified inflammatory polyarthropathy Spinal stenosis of cervical region- Primary Spinal stenosis in cervical region Radiculopathy, cervical region Brachial neuritis or radiculitis nos [facility] Diagnosis Hyponatremia- Primary Hyposmolality and/or hyponatremia Hyponatremia Hyposmolality and/or hyponatremia Hypokalemia Hypopotassemia Tetrahydrocannabinol (THC) use disorder, mild, abuse Acute confusion Delirium due to conditions classified elsewhere Headache disorder Headache Non-intractable vomiting, presence of nausea not specified, unspecified vomiting type Altered mental status, unspecified altered mental status type Acute metabolic encephalopathy Migraine headache with aura Migraine with aura, without mention of intractable migraine without mention of status migrainosus Water intoxication Other fluid overload Chronic TMJ pain Inflammatory arthritis Unspecified inflammatory polyarthropathy Pre-op evaluation- Primary Preoperative examination, unspecified PVC's (premature ventricular contractions) Other premature beats Migraine with aura and without status migrainosus, not intractable Migraine with aura, without mention of intractable migraine without mention of status migrainosus Hypercholesteremia Pure hypercholesterolemia Inflammatory arthritis Unspecified inflammatory polyarthropathy Spinal stenosis of cervical region- Primary Spinal stenosis in cervical region Radiculopathy, cervical region Brachial neuritis or radiculitis nos [facility] Diagnosis Hyponatremia- Primary Hyposmolality and/or hyponatremia Hyponatremia Hyposmolality and/or hyponatremia Hypokalemia Hypopotassemia Tetrahydrocannabinol (THC) use disorder, mild, abuse Acute confusion Delirium due to conditions classified elsewhere Headache disorder Headache Non-intractable vomiting, presence of nausea not specified, unspecified vomiting type Altered mental status, unspecified altered mental status type Acute metabolic encephalopathy Migraine headache with aura Migraine with aura, without mention of intractable migraine without mention of status migrainosus Water intoxication Other fluid overload Chronic TMJ pain Inflammatory arthritis Unspecified inflammatory polyarthropathy Pre-op evaluation- Primary Preoperative examination, unspecified PVC's (premature ventricular contractions) Other premature beats Migraine with aura and without status migrainosus, not intractable Migraine with aura, without mention of intractable migraine without mention of status migrainosus Hypercholesteremia Pure hypercholesterolemia Inflammatory arthritis Unspecified inflammatory polyarthropathy PMS (premenstrual syndrome)- Primary Premenstrual tension syndromes Mood swings Other specified episodic mood disorder Feeling of sadness Dysthymic disorder [facility] Diagnosis Hyponatremia- Primary Hyposmolality and/or hyponatremia Hyponatremia Hyposmolality and/or hyponatremia Hypokalemia Hypopotassemia Tetrahydrocannabinol (THC) use disorder, mild, abuse Acute confusion Delirium due to conditions classified elsewhere Headache disorder Headache Non-intractable vomiting, presence of nausea not specified, unspecified vomiting type Altered mental status, unspecified altered mental status type Acute metabolic encephalopathy Migraine headache with aura Migraine with aura, without mention of intractable migraine without mention of status migrainosus Water intoxication Other fluid overload Chronic TMJ pain Inflammatory arthritis Unspecified inflammatory polyarthropathy Pre-op evaluation- Primary Preoperative examination, unspecified PVC's (premature ventricular contractions) Other premature beats Migraine with aura and without status migrainosus, not intractable Migraine with aura, without mention of intractable migraine without mention of status migrainosus Hypercholesteremia Pure hypercholesterolemia Inflammatory arthritis Unspecified inflammatory polyarthropathy Spinal stenosis of cervical region- Primary Spinal stenosis in cervical region Radiculopathy, cervical region Brachial neuritis or radiculitis nos Low back pain, unspecified back pain laterality, unspecified chronicity, unspecified whether sciatica present [facility] Diagnosis Hyponatremia- Primary Hyposmolality and/or hyponatremia Hyponatremia Hyposmolality and/or hyponatremia Hypokalemia Hypopotassemia Tetrahydrocannabinol (THC) use disorder, mild, abuse Acute confusion Delirium due to conditions classified elsewhere Headache disorder Headache Non-intractable vomiting, presence of nausea not specified, unspecified vomiting type Altered mental status, unspecified altered mental status type Acute metabolic encephalopathy Migraine headache with aura Migraine with aura, without mention of intractable migraine without mention of status migrainosus Water intoxication Other fluid overload Chronic TMJ pain Inflammatory arthritis Unspecified inflammatory polyarthropathy Pre-op evaluation- Primary Preoperative examination, unspecified PVC's (premature ventricular contractions) Other premature beats Migraine with aura and without status migrainosus, not intractable Migraine with aura, without mention of intractable migraine without mention of status migrainosus Hypercholesteremia Pure hypercholesterolemia Inflammatory arthritis Unspecified inflammatory polyarthropathy Gastroesophageal reflux disease, unspecified whether esophagitis present- Primary Dysphagia, unspecified type Positive Helicobacter pylori serology Other and unspecified nonspecific immunological findings documented in this encounter [facility] note* Diagnosis Hyponatremia- Primary Hyposmolality and/or hyponatremia Hyponatremia Hyposmolality and/or hyponatremia Hypokalemia Hypopotassemia Tetrahydrocannabinol (THC) use disorder, mild, abuse Acute confusion Delirium due to conditions classified elsewhere Headache disorder Headache Non-intractable vomiting, presence of nausea not specified, unspecified vomiting type Altered mental status, unspecified altered mental status type Acute metabolic encephalopathy Migraine headache with aura Migraine with aura, without mention of intractable migraine without mention of status migrainosus Water intoxication Other fluid overload Chronic TMJ pain Inflammatory arthritis Unspecified inflammatory polyarthropathy Pre-op evaluation- Primary Preoperative examination, unspecified PVC's (premature ventricular contractions) Other premature beats Migraine with aura and without status migrainosus, not intractable Migraine with aura, without mention of intractable migraine without mention of status migrainosus Hypercholesteremia Pure hypercholesterolemia Inflammatory arthritis Unspecified inflammatory polyarthropathy Low back pain, unspecified back pain laterality, unspecified chronicity, unspecified whether sciatica present- Primary Radiculopathy, cervical region Brachial neuritis or radiculitis nos Spinal stenosis of cervical region Spinal stenosis in cervical region documented in this encounter [facility] note* Diagnosis Hyponatremia- Primary Hyposmolality and/or hyponatremia Hyponatremia Hyposmolality and/or hyponatremia Hypokalemia Hypopotassemia Tetrahydrocannabinol (THC) use disorder, mild, abuse Acute confusion Delirium due to conditions classified elsewhere Headache disorder Headache Non-intractable vomiting, presence of nausea not specified, unspecified vomiting type Altered mental status, unspecified altered mental status type Acute metabolic encephalopathy Migraine headache with aura Migraine with aura, without mention of intractable migraine without mention of status migrainosus Water intoxication Other fluid overload Chronic TMJ pain Inflammatory arthritis Unspecified inflammatory polyarthropathy Pre-op evaluation- Primary Preoperative examination, unspecified PVC's (premature ventricular contractions) Other premature beats Migraine with aura and without status migrainosus, not intractable Migraine with aura, without mention of intractable migraine without mention of status migrainosus Hypercholesteremia Pure hypercholesterolemia Inflammatory arthritis Unspecified inflammatory polyarthropathy Seronegative rheumatoid arthritis (HCC)- Primary Rheumatoid arthritis [facility] Diagnosis Hyponatremia- Primary Hyposmolality and/or hyponatremia Hyponatremia Hyposmolality and/or hyponatremia Hypokalemia Hypopotassemia Tetrahydrocannabinol (THC) use disorder, mild, abuse Acute confusion Delirium due to conditions classified elsewhere Headache disorder Headache Non-intractable vomiting, presence of nausea not specified, unspecified vomiting type Altered mental status, unspecified altered mental status type Acute metabolic encephalopathy Migraine headache with aura Migraine with aura, without mention of intractable migraine without mention of status migrainosus Water intoxication Other fluid overload Chronic TMJ pain Inflammatory arthritis Unspecified inflammatory polyarthropathy Pre-op evaluation- Primary Preoperative examination, unspecified PVC's (premature ventricular contractions) Other premature beats Migraine with aura and without status migrainosus, not intractable Migraine with aura, without mention of intractable migraine without mention of status migrainosus Hypercholesteremia Pure hypercholesterolemia Inflammatory arthritis Unspecified inflammatory polyarthropathy Pain in right leg- Primary Numbness and tingling of both legs Disturbance of skin sensation Paresthesia of both hands Paresthesia of skin Disturbance of skin sensation [facility] Diagnosis Hyponatremia- Primary Hyposmolality and/or hyponatremia Hyponatremia Hyposmolality and/or hyponatremia Hypokalemia Hypopotassemia Tetrahydrocannabinol (THC) use disorder, mild, abuse Acute confusion Delirium due to conditions classified elsewhere Headache disorder Headache Non-intractable vomiting, presence of nausea not specified, unspecified vomiting type Altered mental status, unspecified altered mental status type Acute metabolic encephalopathy Migraine headache with aura Migraine with aura, without mention of intractable migraine without mention of status migrainosus Water intoxication Other fluid overload Chronic TMJ pain Inflammatory arthritis Unspecified inflammatory polyarthropathy Pre-op evaluation- Primary Preoperative examination, unspecified PVC's (premature ventricular contractions) Other premature beats Migraine with aura and without status migrainosus, not intractable Migraine with aura, without mention of intractable migraine without mention of status migrainosus Hypercholesteremia Pure hypercholesterolemia Inflammatory arthritis Unspecified inflammatory polyarthropathy Regular astigmatism of both eyes- Primary Regular astigmatism Dry eye syndrome of bilateral lacrimal glands Tear film insufficiency, unspecified [facility] Diagnosis Hyponatremia- Primary Hyposmolality and/or hyponatremia Hyponatremia Hyposmolality and/or hyponatremia Hypokalemia Hypopotassemia Tetrahydrocannabinol (THC) use disorder, mild, abuse Acute confusion Delirium due to conditions classified elsewhere Headache disorder Headache Non-intractable vomiting, presence of nausea not specified, unspecified vomiting type Altered mental status, unspecified altered mental status type Acute metabolic encephalopathy Migraine headache with aura Migraine with aura, without mention of intractable migraine without mention of status migrainosus Water intoxication Other fluid overload Chronic TMJ pain Inflammatory arthritis Unspecified inflammatory polyarthropathy Pre-op evaluation- Primary Preoperative examination, unspecified PVC's (premature ventricular contractions) Other premature beats Migraine with aura and without status migrainosus, not intractable Migraine with aura, without mention of intractable migraine without mention of status migrainosus Hypercholesteremia Pure hypercholesterolemia Inflammatory arthritis Unspecified inflammatory polyarthropathy Low back pain, unspecified back pain laterality, unspecified chronicity, unspecified whether sciatica present- Primary Radiculopathy, cervical region Brachial neuritis or radiculitis nos Spinal stenosis of cervical region Spinal stenosis in cervical region [facility] Diagnosis Hyponatremia- Primary Hyposmolality and/or hyponatremia Hyponatremia Hyposmolality and/or hyponatremia Hypokalemia Hypopotassemia Tetrahydrocannabinol (THC) use disorder, mild, abuse Acute confusion Delirium due to conditions classified elsewhere Headache disorder Headache Non-intractable vomiting, presence of nausea not specified, unspecified vomiting type Altered mental status, unspecified altered mental status type Acute metabolic encephalopathy Migraine headache with aura Migraine with aura, without mention of intractable migraine without mention of status migrainosus Water intoxication Other fluid overload Chronic TMJ pain Inflammatory arthritis Unspecified inflammatory polyarthropathy Pre-op evaluation- Primary Preoperative examination, unspecified PVC's (premature ventricular contractions) Other premature beats Migraine with aura and without status migrainosus, not intractable Migraine with aura, without mention of intractable migraine without mention of status migrainosus Hypercholesteremia Pure hypercholesterolemia Inflammatory arthritis Unspecified inflammatory polyarthropathy Numbness and tingling of both legs- Primary Disturbance of skin sensation Paresthesia of both hands [facility] Diagnosis Hyponatremia- Primary Hyposmolality and/or hyponatremia Hyponatremia Hyposmolality and/or hyponatremia Hypokalemia Hypopotassemia Tetrahydrocannabinol (THC) use disorder, mild, abuse Acute confusion Delirium due to conditions classified elsewhere Headache disorder Headache Non-intractable vomiting, presence of nausea not specified, unspecified vomiting type Altered mental status, unspecified altered mental status type Acute metabolic encephalopathy Migraine headache with aura Migraine with aura, without mention of intractable migraine without mention of status migrainosus Water intoxication Other fluid overload Chronic TMJ pain Inflammatory arthritis Unspecified inflammatory polyarthropathy Pre-op evaluation- Primary Preoperative examination, unspecified PVC's (premature ventricular contractions) Other premature beats Migraine with aura and without status migrainosus, not intractable Migraine with aura, without mention of intractable migraine without mention of status migrainosus Hypercholesteremia Pure hypercholesterolemia Inflammatory arthritis Unspecified inflammatory polyarthropathy Spasm of muscle [facility] Diagnosis Hyponatremia- Primary Hyposmolality and/or hyponatremia Hyponatremia Hyposmolality and/or hyponatremia Hypokalemia Hypopotassemia Tetrahydrocannabinol (THC) use disorder, mild, abuse Acute confusion Delirium due to conditions classified elsewhere Headache disorder Headache Non-intractable vomiting, presence of nausea not specified, unspecified vomiting type Altered mental status, unspecified altered mental status type Acute metabolic encephalopathy Migraine headache with aura Migraine with aura, without mention of intractable migraine without mention of status migrainosus Water intoxication Other fluid overload Chronic TMJ pain Inflammatory arthritis Unspecified inflammatory polyarthropathy Pre-op evaluation- Primary Preoperative examination, unspecified PVC's (premature ventricular contractions) Other premature beats Migraine with aura and without status migrainosus, not intractable Migraine with aura, without mention of intractable migraine without mention of status migrainosus Hypercholesteremia Pure hypercholesterolemia Inflammatory arthritis Unspecified inflammatory polyarthropathy Seronegative rheumatoid arthritis (HCC)- Primary Rheumatoid arthritis [facility] Diagnosis Hyponatremia- Primary Hyposmolality and/or hyponatremia Hyponatremia Hyposmolality and/or hyponatremia Hypokalemia Hypopotassemia Tetrahydrocannabinol (THC) use disorder, mild, abuse Acute confusion Delirium due to conditions classified elsewhere Headache disorder Headache Non-intractable vomiting, presence of nausea not specified, unspecified vomiting type Altered mental status, unspecified altered mental status type Acute metabolic encephalopathy Migraine headache with aura Migraine with aura, without mention of intractable migraine without mention of status migrainosus Water intoxication Other fluid overload Chronic TMJ pain Inflammatory arthritis Unspecified inflammatory polyarthropathy Pre-op evaluation- Primary Preoperative examination, unspecified PVC's (premature ventricular contractions) Other premature beats Migraine with aura and without status migrainosus, not intractable Migraine with aura, without mention of intractable migraine without mention of status migrainosus Hypercholesteremia Pure hypercholesterolemia Inflammatory arthritis Unspecified inflammatory polyarthropathy Inflammatory arthritis- Primary Unspecified inflammatory polyarthropathy Long-term use of immunosuppressant medication Encounter for long-term (current) use of other medications Pain in joint, multiple sites 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, unspecified Chronic midline low back pain without sciatica Gastroesophageal reflux disease without esophagitis- Primary [facility] Diagnosis Hyponatremia- Primary Hyposmolality and/or hyponatremia Hyponatremia Hyposmolality and/or hyponatremia Hypokalemia Hypopotassemia Tetrahydrocannabinol (THC) use disorder, mild, abuse Acute confusion Delirium due to conditions classified elsewhere Headache disorder Headache Non-intractable vomiting, presence of nausea not specified, unspecified vomiting type Altered mental status, unspecified altered mental status type Acute metabolic encephalopathy Migraine headache with aura Migraine with aura, without mention of intractable migraine without mention of status migrainosus Water intoxication Other fluid overload Chronic TMJ pain Inflammatory arthritis Unspecified inflammatory polyarthropathy Pre-op evaluation- Primary Preoperative examination, unspecified PVC's (premature ventricular contractions) Other premature beats Migraine with aura and without status migrainosus, not intractable Migraine with aura, without mention of intractable migraine without mention of status migrainosus Hypercholesteremia Pure hypercholesterolemia Inflammatory arthritis Unspecified inflammatory polyarthropathy Gastroesophageal reflux disease without esophagitis- Primary Esophageal reflux Gastroesophageal reflux disease, unspecified whether esophagitis present documented in this encounter [facility] note* Diagnosis Hyponatremia- Primary Hyposmolality and/or hyponatremia Hyponatremia Hyposmolality and/or hyponatremia Hypokalemia Hypopotassemia Tetrahydrocannabinol (THC) use disorder, mild, abuse Acute confusion Delirium due to conditions classified elsewhere Headache disorder Headache Non-intractable vomiting, presence of nausea not specified, unspecified vomiting type Altered mental status, unspecified altered mental status type Acute metabolic encephalopathy Migraine headache with aura Migraine with aura, without mention of intractable migraine without mention of status migrainosus Water intoxication Other fluid overload Chronic TMJ pain Inflammatory arthritis Unspecified inflammatory polyarthropathy Pre-op evaluation- Primary Preoperative examination, unspecified PVC's (premature ventricular contractions) Other premature beats Migraine with aura and without status migrainosus, not intractable Migraine with aura, without mention of intractable migraine without mention of status migrainosus Hypercholesteremia Pure hypercholesterolemia Inflammatory arthritis Unspecified inflammatory polyarthropathy Seronegative rheumatoid arthritis (HCC)- Primary Rheumatoid arthritis documented in this encounter [facility] note* Diagnosis Hyponatremia- Primary Hyposmolality and/or hyponatremia Hyponatremia Hyposmolality and/or hyponatremia Hypokalemia Hypopotassemia Tetrahydrocannabinol (THC) use disorder, mild, abuse Acute confusion Delirium due to conditions classified elsewhere Headache disorder Headache Non-intractable vomiting, presence of nausea not specified, unspecified vomiting type Altered mental status, unspecified altered mental status type Acute metabolic encephalopathy Migraine headache with aura Migraine with aura, without mention of intractable migraine without mention of status migrainosus Water intoxication Other fluid overload Chronic TMJ pain Inflammatory arthritis Unspecified inflammatory polyarthropathy Pre-op evaluation- Primary Preoperative examination, unspecified PVC's (premature ventricular contractions) Other premature beats Migraine with aura and without status migrainosus, not intractable Migraine with aura, without mention of intractable migraine without mention of status migrainosus Hypercholesteremia Pure hypercholesterolemia Inflammatory arthritis Unspecified inflammatory polyarthropathy Chronic migraine without aura, intractable, without status migrainosus- Primary Chronic daily headache Headache Intractable chronic migraine without aura and without status migrainosus Chronic migraine without aura, with intractable migraine, so stated, without mention of status migrainosus Migraine with aura and without status migrainosus, not intractable Migraine with aura, without mention of intractable migraine without mention of status migrainosus Cervicalgia Bilateral occipital neuralgia Other syndromes affecting cervical region Cervicogenic headache Headache [facility] Diagnosis Hyponatremia- Primary Hyposmolality and/or hyponatremia Hyponatremia Hyposmolality and/or hyponatremia Hypokalemia Hypopotassemia Tetrahydrocannabinol (THC) use disorder, mild, abuse Acute confusion Delirium due to conditions classified elsewhere Headache disorder Headache Non-intractable vomiting, presence of nausea not specified, unspecified vomiting type Altered mental status, unspecified altered mental status type Acute metabolic encephalopathy Migraine headache with aura Migraine with aura, without mention of intractable migraine without mention of status migrainosus Water intoxication Other fluid overload Chronic TMJ pain Inflammatory arthritis Unspecified inflammatory polyarthropathy Pre-op evaluation- Primary Preoperative examination, unspecified PVC's (premature ventricular contractions) Other premature beats Migraine with aura and without status migrainosus, not intractable Migraine with aura, without mention of intractable migraine without mention of status migrainosus Hypercholesteremia Pure hypercholesterolemia Inflammatory arthritis Unspecified inflammatory polyarthropathy Helicobacter pylori ab+- Primary Other and unspecified nonspecific immunological findings [facility] Diagnosis Hyponatremia- Primary Hyposmolality and/or hyponatremia Hyponatremia Hyposmolality and/or hyponatremia Hypokalemia Hypopotassemia Tetrahydrocannabinol (THC) use disorder, mild, abuse Acute confusion Delirium due to conditions classified elsewhere Headache disorder Headache Non-intractable vomiting, presence of nausea not specified, unspecified vomiting type Altered mental status, unspecified altered mental status type Acute metabolic encephalopathy Migraine headache with aura Migraine with aura, without mention of intractable migraine without mention of status migrainosus Water intoxication Other fluid overload Chronic TMJ pain Inflammatory arthritis Unspecified inflammatory polyarthropathy Pre-op evaluation- Primary Preoperative examination, unspecified PVC's (premature ventricular contractions) Other premature beats Migraine with aura and without status migrainosus, not intractable Migraine with aura, without mention of intractable migraine without mention of status migrainosus Hypercholesteremia Pure hypercholesterolemia Inflammatory arthritis Unspecified inflammatory polyarthropathy Seronegative rheumatoid arthritis (HCC)- Primary Rheumatoid arthritis [facility] Diagnosis Hyponatremia- Primary Hyposmolality and/or hyponatremia Hyponatremia Hyposmolality and/or hyponatremia Hypokalemia Hypopotassemia Tetrahydrocannabinol (THC) use disorder, mild, abuse Acute confusion Delirium due to conditions classified elsewhere Headache disorder Headache Non-intractable vomiting, presence of nausea not specified, unspecified vomiting type Altered mental status, unspecified altered mental status type Acute metabolic encephalopathy Migraine headache with aura Migraine with aura, without mention of intractable migraine without mention of status migrainosus Water intoxication Other fluid overload Chronic TMJ pain Inflammatory arthritis Unspecified inflammatory polyarthropathy Pre-op evaluation- Primary Preoperative examination, unspecified PVC's (premature ventricular contractions) Other premature beats Migraine with aura and without status migrainosus, not intractable Migraine with aura, without mention of intractable migraine without mention of status migrainosus Hypercholesteremia Pure hypercholesterolemia Inflammatory arthritis Unspecified inflammatory polyarthropathy 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, unspecified documented in this encounter [facility] note* Diagnosis Hyponatremia- Primary Hyposmolality and/or hyponatremia Hyponatremia Hyposmolality and/or hyponatremia Hypokalemia Hypopotassemia Tetrahydrocannabinol (THC) use disorder, mild, abuse Acute confusion Delirium due to conditions classified elsewhere Headache disorder Headache Non-intractable vomiting, presence of nausea not specified, unspecified vomiting type Altered mental status, unspecified altered mental status type Acute metabolic encephalopathy Migraine headache with aura Migraine with aura, without mention of intractable migraine without mention of status migrainosus Water intoxication Other fluid overload Chronic TMJ pain Inflammatory arthritis Unspecified inflammatory polyarthropathy Pre-op evaluation- Primary Preoperative examination, unspecified PVC's (premature ventricular contractions) Other premature beats Migraine with aura and without status migrainosus, not intractable Migraine with aura, without mention of intractable migraine without mention of status migrainosus Hypercholesteremia Pure hypercholesterolemia Inflammatory arthritis Unspecified inflammatory polyarthropathy 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, unspecified Chronic midline low back pain without sciatica documented in this encounter [facility] note* Diagnosis Hyponatremia- Primary Hyposmolality and/or hyponatremia Hyponatremia Hyposmolality and/or hyponatremia Hypokalemia Hypopotassemia Tetrahydrocannabinol (THC) use disorder, mild, abuse Acute confusion Delirium due to conditions classified elsewhere Headache disorder Headache Non-intractable vomiting, presence of nausea not specified, unspecified vomiting type Altered mental status, unspecified altered mental status type Acute metabolic encephalopathy Migraine headache with aura Migraine with aura, without mention of intractable migraine without mention of status migrainosus Water intoxication Other fluid overload Chronic TMJ pain Inflammatory arthritis Unspecified inflammatory polyarthropathy Pre-op evaluation- Primary Preoperative examination, unspecified PVC's (premature ventricular contractions) Other premature beats Migraine with aura and without status migrainosus, not intractable Migraine with aura, without mention of intractable migraine without mention of status migrainosus Hypercholesteremia Pure hypercholesterolemia Inflammatory arthritis Unspecified inflammatory polyarthropathy Ankylosing spondylitis of lumbosacral region (HCC)- Primary Ankylosing spondylitis Inflammatory arthritis Unspecified inflammatory polyarthropathy Long-term use of immunosuppressant medication Encounter for long-term (current) use of other medications Pain in joint, multiple sites Chronic midline low back pain without sciatica [facility] Diagnosis Hyponatremia- Primary Hyposmolality and/or hyponatremia Hyponatremia Hyposmolality and/or hyponatremia Hypokalemia Hypopotassemia Tetrahydrocannabinol (THC) use disorder, mild, abuse Acute confusion Delirium due to conditions classified elsewhere Headache disorder Headache Non-intractable vomiting, presence of nausea not specified, unspecified vomiting type Altered mental status, unspecified altered mental status type Acute metabolic encephalopathy Migraine headache with aura Migraine with aura, without mention of intractable migraine without mention of status migrainosus Water intoxication Other fluid overload Chronic TMJ pain Inflammatory arthritis Unspecified inflammatory polyarthropathy Pre-op evaluation- Primary Preoperative examination, unspecified PVC's (premature ventricular contractions) Other premature beats Migraine with aura and without status migrainosus, not intractable Migraine with aura, without mention of intractable migraine without mention of status migrainosus Hypercholesteremia Pure hypercholesterolemia Inflammatory arthritis Unspecified inflammatory polyarthropathy Ankylosing spondylitis of lumbosacral region (HCC)- Primary Ankylosing spondylitis [facility]* Diagnosis Hyponatremia- Primary Hyposmolality and/or hyponatremia Hyponatremia Hyposmolality and/or hyponatremia Hypokalemia Hypopotassemia Tetrahydrocannabinol (THC) use disorder, mild, abuse Acute confusion Delirium due to conditions classified elsewhere Headache disorder Headache Non-intractable vomiting, presence of nausea not specified, unspecified vomiting type Altered mental status, unspecified altered mental status type Acute metabolic encephalopathy Migraine headache with aura Migraine with aura, without mention of intractable migraine without mention of status migrainosus Water intoxication Other fluid overload Chronic TMJ pain Inflammatory arthritis Unspecified inflammatory polyarthropathy Pre-op evaluation- Primary Preoperative examination, unspecified PVC's (premature ventricular contractions) Other premature beats Migraine with aura and without status migrainosus, not intractable Migraine with aura, without mention of intractable migraine without mention of status migrainosus Hypercholesteremia Pure hypercholesterolemia Inflammatory arthritis Unspecified inflammatory polyarthropathy Ankylosing spondylitis of lumbosacral region (HCC)- Primary Ankylosing spondylitis Seronegative rheumatoid arthritis (HCC) Rheumatoid arthritis [facility]* Diagnosis Hyponatremia- Primary Hyposmolality and/or hyponatremia Hyponatremia Hyposmolality and/or hyponatremia Hypokalemia Hypopotassemia Tetrahydrocannabinol (THC) use disorder, mild, abuse Acute confusion Delirium due to conditions classified elsewhere Headache disorder Headache Non-intractable vomiting, presence of nausea not specified, unspecified vomiting type Altered mental status, unspecified altered mental status type Acute metabolic encephalopathy Migraine headache with aura Migraine with aura, without mention of intractable migraine without mention of status migrainosus Water intoxication Other fluid overload Chronic TMJ pain Inflammatory arthritis Unspecified inflammatory polyarthropathy Pre-op evaluation- Primary Preoperative examination, unspecified PVC's (premature ventricular contractions) Other premature beats Migraine with aura and without status migrainosus, not intractable Migraine with aura, without mention of intractable migraine without mention of status migrainosus Hypercholesteremia Pure hypercholesterolemia Inflammatory arthritis Unspecified inflammatory polyarthropathy Ankylosing spondylitis of lumbosacral region (HCC)- Primary Ankylosing spondylitis Seronegative rheumatoid arthritis (HCC) Rheumatoid arthritis [facility]* Diagnosis Hyponatremia- Primary Hyposmolality and/or hyponatremia Hyponatremia Hyposmolality and/or hyponatremia Hypokalemia Hypopotassemia Tetrahydrocannabinol (THC) use disorder, mild, abuse Acute confusion Delirium due to conditions classified elsewhere Headache disorder Headache Non-intractable vomiting, presence of nausea not specified, unspecified vomiting type Altered mental status, unspecified altered mental status type Acute metabolic encephalopathy Migraine headache with aura Migraine with aura, without mention of intractable migraine without mention of status migrainosus Water intoxication Other fluid overload Chronic TMJ pain Inflammatory arthritis Unspecified inflammatory polyarthropathy Pre-op evaluation- Primary Preoperative examination, unspecified PVC's (premature ventricular contractions) Other premature beats Migraine with aura and without status migrainosus, not intractable Migraine with aura, without mention of intractable migraine without mention of status migrainosus Hypercholesteremia Pure hypercholesterolemia Inflammatory arthritis Unspecified inflammatory polyarthropathy NO SHOW- Primary [facility] Diagnosis Hyponatremia- Primary Hyposmolality and/or hyponatremia Hyponatremia Hyposmolality and/or hyponatremia Hypokalemia Hypopotassemia Tetrahydrocannabinol (THC) use disorder, mild, abuse Acute confusion Delirium due to conditions classified elsewhere Headache disorder Headache Non-intractable vomiting, presence of nausea not specified, unspecified vomiting type Altered mental status, unspecified altered mental status type Acute metabolic encephalopathy Migraine headache with aura Migraine with aura, without mention of intractable migraine without mention of status migrainosus Water intoxication Other fluid overload Chronic TMJ pain Inflammatory arthritis Unspecified inflammatory polyarthropathy Pre-op evaluation- Primary Preoperative examination, unspecified PVC's (premature ventricular contractions) Other premature beats Migraine with aura and without status migrainosus, not intractable Migraine with aura, without mention of intractable migraine without mention of status migrainosus Hypercholesteremia Pure hypercholesterolemia Inflammatory arthritis Unspecified inflammatory polyarthropathy Herniation of cervical intervertebral disc with radiculopathy- Primary Displacement of cervical intervertebral disc without myelopathy Foraminal stenosis of cervical region Spinal stenosis in cervical region Cervical myofascial pain syndrome Mylagia and myositis, unspecified Spinal stenosis of cervical region Spinal stenosis in cervical region NO SHOW [facility] Diagnosis Hyponatremia- Primary Hyposmolality and/or hyponatremia Hyponatremia Hyposmolality and/or hyponatremia Hypokalemia Hypopotassemia Tetrahydrocannabinol (THC) use disorder, mild, abuse Acute confusion Delirium due to conditions classified elsewhere Headache disorder Headache Non-intractable vomiting, presence of nausea not specified, unspecified vomiting type Altered mental status, unspecified altered mental status type Acute metabolic encephalopathy Migraine headache with aura Migraine with aura, without mention of intractable migraine without mention of status migrainosus Water intoxication Other fluid overload Chronic TMJ pain Inflammatory arthritis Unspecified inflammatory polyarthropathy Pre-op evaluation- Primary Preoperative examination, unspecified PVC's (premature ventricular contractions) Other premature beats Migraine with aura and without status migrainosus, not intractable Migraine with aura, without mention of intractable migraine without mention of status migrainosus Hypercholesteremia Pure hypercholesterolemia Inflammatory arthritis Unspecified inflammatory polyarthropathy Chronic migraine without aura, intractable, without status migrainosus- Primary Chronic daily headache Headache Bilateral occipital neuralgia Other syndromes affecting cervical region Intractable chronic migraine without aura and without status migrainosus Chronic migraine without aura, with intractable migraine, so stated, without mention of status migrainosus Migraine with aura and without status migrainosus, not intractable Migraine with aura, without mention of intractable migraine without mention of status migrainosus Cervicogenic headache Headache [facility] Diagnosis Hyponatremia- Primary Hyposmolality and/or hyponatremia Hyponatremia Hyposmolality and/or hyponatremia Hypokalemia Hypopotassemia Tetrahydrocannabinol (THC) use disorder, mild, abuse Acute confusion Delirium due to conditions classified elsewhere Headache disorder Headache Non-intractable vomiting, presence of nausea not specified, unspecified vomiting type Altered mental status, unspecified altered mental status type Acute metabolic encephalopathy Migraine headache with aura Migraine with aura, without mention of intractable migraine without mention of status migrainosus Water intoxication Other fluid overload Chronic TMJ pain Inflammatory arthritis Unspecified inflammatory polyarthropathy Pre-op evaluation- Primary Preoperative examination, unspecified PVC's (premature ventricular contractions) Other premature beats Migraine with aura and without status migrainosus, not intractable Migraine with aura, without mention of intractable migraine without mention of status migrainosus Hypercholesteremia Pure hypercholesterolemia Inflammatory arthritis Unspecified inflammatory polyarthropathy Ankylosing spondylitis of lumbosacral region (HCC)- Primary Ankylosing spondylitis [facility]* Diagnosis Hyponatremia- Primary Hyposmolality and/or hyponatremia Hyponatremia Hyposmolality and/or hyponatremia Hypokalemia Hypopotassemia Tetrahydrocannabinol (THC) use disorder, mild, abuse Acute confusion Delirium due to conditions classified elsewhere Headache disorder Headache Non-intractable vomiting, presence of nausea not specified, unspecified vomiting type Altered mental status, unspecified altered mental status type Acute metabolic encephalopathy Migraine headache with aura Migraine with aura, without mention of intractable migraine without mention of status migrainosus Water intoxication Other fluid overload Chronic TMJ pain Inflammatory arthritis Unspecified inflammatory polyarthropathy Pre-op evaluation- Primary Preoperative examination, unspecified PVC's (premature ventricular contractions) Other premature beats Migraine with aura and without status migrainosus, not intractable Migraine with aura, without mention of intractable migraine without mention of status migrainosus Hypercholesteremia Pure hypercholesterolemia Inflammatory arthritis Unspecified inflammatory polyarthropathy Herniation of cervical intervertebral disc with radiculopathy- Primary Displacement of cervical intervertebral disc without myelopathy Foraminal stenosis of cervical region Spinal stenosis in cervical region Spinal stenosis of cervical region Spinal stenosis in cervical region Cervical myofascial pain syndrome Mylagia and myositis, unspecified documented in this encounter [facility] for referral (narrative)* Diagnostic Procedure Only (Routine) - Authorized Specialty Diagnoses / Procedures Referred By Farheen taylor Referred To Contact XR IMAGING Diagnoses Encounter for long-term (current) use of medications Procedures XR SACROILIAC JOINTS 2V AP PELVIS/FERGUESON RADIOLOGIC EXAMINATION SACROILIAC JNTS <3 VIEWS Wisam Chung PA-C [id number] [place] [address] Xr Imaging Referral ID Status Reason Start Date Expiration Date Visits Requested Visits Authorized [id number] Authorized Auto-Generat ed Referral 07/05/2022 08/04/2023 1 1 * Molecular Testing (Routine) - Authorized Specialty Diagnoses / Procedures Referred By Farheen taylor Referred To Contact MOLECULAR & FUNCTIONAL IMAGING Diagnoses Encounter for long-term (current) use of medications Procedures HLA-B27 PCR HLA I LOW RESOLUTION ONE ANTIGEN EQUIVALENT EACH Wisam Chung PA-C [address] [place] [address] Molecular & Functional Imaging [address] [place] [address] Referral ID Status Reason Start Date Expiration Date Visits Requested Visits Authorized [id number] Authorized PCP Requested Referral Auto-Generate d Referral 07/05/2022 10/03/2022 1 1 [facility] for referral (narrative)* Diagnostic Procedure Only (Routine) - Closed Specialty Diagnoses / Procedures Referred By Contac t Referred To Contact XR IMAGING Diagnoses Encounter for long-term (current) use of medications Procedures XR SACROILIAC JOINTS 2V AP PELVIS/FERGUESON RADIOLOGIC EXAMINATION SACROILIAC JNTS <3 VIEWS Wisam Chung PA-C [address] [place] [address] Xr Imaging Referral ID Status Reason Start Date Expiration Date V isits Requested Visits Authorized [id number] Closed Auto-Generate d Referral 07/05/2022 08/04/2023 1 1 [facility] Diagnostic Procedure Only (Routine) - Authorized Specialty Diagnoses / Procedures Referred By Contac t Referred To Contact XR IMAGING Diagnoses Pain in right hip Procedures XR HIP GENERAL 3V PELV/AP/LAT RIGHT RADEX HIP UNILATERAL WITH PELVIS 2-3 VIEWS Dian Sierra PA-C [address] [place] [address] Xr Imaging Referral ID Status Reason Start Date Expiration Date Visits Requested Visits Authorized [id number] Authorized Auto-Generat ed Referral 07/29/2022 08/28/2023 1 1 [facility] - Incomplete Specialty Diagnoses / Procedures Referred By Contac t Referred To Contact Physical Therapy Diagnoses Right hip impingement syndrome Procedures CONSULT TO PHYSICAL THERAPY Emre De Leon MD [address] [place] [address] Referral ID Status Reason Start Date Expiration Date V isits Requested Visits Authorized [id number] Incomplete 08/02/2022 10/31/2022 1 1 [facility] for referral (narrative)* Diagnostic Procedure Only (Routine) - Authorized Specialty Diagnoses / Procedures Referred By Shilpiac t Referred To Contact US IMAGING Diagnoses BMI 30.0-30.9,adult Insulin resistance Impaired fasting glucose Procedures US ABD RT UPPER QUADRANT US ABDOMINAL REAL TIME W/IMAGE LIMITED Macie Dai MD [address] [place] [id number] Us Imaging Referral ID Status Reason Start Date Expiration Date Visits Requested Visits Authorized [id number] Authorized Auto-Generat ed Referral 10/05/2022 11/04/2023 1 1 [facility] for referral (narrative)* Diagnostic Procedure Only (Routine) - Closed Specialty Diagnoses / Procedures Referred By Farheen t Referred To Contact XR IMAGING Diagnoses Tear of right acetabular labrum, subsequent encounter Procedures XR HIP GENERAL 3V PELV/AP/LAT RIGHT RADEX HIP UNILATERAL WITH PELVIS 2-3 VIEWS Dian Sierra PA-C [address] [place] [address] Xr Imaging [place] [address] Referral ID Status Reason Start Date Expiration Date V isits Requested Visits Authorized [id number] Closed Auto-Generate d Referral 05/15/2023 06/13/2024 1 1 T [facility] for referral (narrative)* Diagnostic Procedure Only (Routine) - Closed Specialty Diagnoses / Procedures [facility]erred To Contact XR IMAG[facility] Diagnoses Pain in right hip Procedures XR HIP GENERAL 3V PELV/AP/LAT RIGHT RADEX HIP UNILATERAL WITH PELVIS 2-3 VIEWS Dian Sierra PA-C [address] [place] [id number] [place] [address] Referral ID Status Reason Start Date Expiration Date V isits Requested Visits Authorized [id number] Closed Auto-Generate d Referral 07/29/2022 08/28/2023 1 1 [facility] for referral (narrative)* Outpatient Procedure (Routine) - Authorized Specialty Diagnoses / Procedures Referred By Contac t Referred To Contact [facility] Diagnoses Chest pain, unspecified type Procedures ECG COMPLETE ECG ROUTINE ECG W/LEAST 12 LDS W/I&R David Kilgore DO [address] [place] [address] [facility] [address] [address] Referral ID Status Reason Start Date Expiration Date Visits Requested Visits Authorized [id number] Authorized Auto-Generat ed Referral 12/08/2024 12/08/2025 1 1 * Outpatient Procedure (Routine) - Authorized Specialty Diagnoses / Procedures Referred By Contac t Referred To Contact [facility] Diagnoses Chest pain, unspecified type Procedures ECHO ECHO TTHRC R-T 2D W/WOM-MODE COMPL SPEC&COLR D David Kilgore DO [address] [place] [address] [address] Referral ID Status Reason Start Date Expiration Date Visits Requested Visits Authorized [id number] Authorized Auto-Generat ed Referral 12/08/2024 12/08/2025 1 1 * Outpatient Procedure (Routine) - Authorized Specialty Diagnoses / Procedures Referred By Contac t Referred To [facility] Diagnoses Numbness and tingling of both legs Paresthesia of both hands Procedures EMG(NEURO/NI) NERVE CONDUCTION STUDIES 9-10 STUDIES David Kilgore DO [address] [place] [address] [address] Referral ID Status Reason Start Date Expiration Date Visits Requested Visits Authorized [id number] Authorized Auto-Generat ed Referral 12/08/2024 12/08/2025 1 1 * MRI/CT (Routine) - Incomplete Specialty Diagnoses / Procedures Referred By Farheen taylor Referred To Contact MR IMAGING Diagnoses Thunderclap headache Procedures MRI BRAIN WO/W IVCON MRI BRAIN BRAIN STEM W/O W/CONTRAST MATERIAL David Kilgore DO [address] [place] [address] [place] [address] Referral ID Status Reason Start Date Expiration Date Visits Requested Visits Authorized [id number] Incomplete Auto-Generat ed Referral 12/08/2024 01/07/2026 1 1 [facility] for referral (narrative)* Diagnostic Procedure Only (Routine) - Closed Specialty Diagnoses / Procedures Referred By Farheen taylor Referred To Contact BR IMAGING Diagnoses Encounter for screening mammogram for breast cancer Procedures GILBERTO SCREENING W ASHLEY SCREENING DIGITAL BREAST TOMOSYNTHESIS BI SCREENING MAMMOGRAPHY BI 2-VIEW BREAST INC CAD David Kilgore DO [address] [place] [address] Br Imaging [address] [place] [address] Referral ID Status Reason Start Date Expiration Date V isits Requested Visits Authorized [id number] Closed Auto-Generate d Referral 12/14/2024 01/13/2026 1 1 [facility] for visit Narrative* Auth/Cert Specialty Diagnoses / Procedures Referred By Farheen taylor Referred To Contact Diagnoses Radiculopathy, cervical region Numbness and tingling in right hand Neck pain of over 3 months duration Procedures NJX DX/THER SBST INTRLMNR CRV/THRC W/IMG GDN CERVICAL EPIDURAL BLOCK W/INJECTION(S) NON NEUROLYTIC SUBSTANCE(S) W/IMAGE GUIDANCE [facility] [address] [place] [address] Referral ID Status Reason Start Date Expiration Date Visits Re quested Visits Authorized [id number] 1 1 [facility] for visit Narrative* Diagnostic Procedure Only (Routine) - Closed Specialty Diagnoses / Procedures Referred By Farheen taylor Referred To Contact XR IMAGING Diagnoses Encounter for long-term (current) use of medications Procedures XR SACROILIAC JOINTS 2V AP PELVIS/FERGUESON RADIOLOGIC EXAMINATION SACROILIAC JNTS <3 VIEWS Wisam Chung PA-C [address] [place] [address] Xr Imaging Referral ID Status Reason Start Date Expiration Date V isits Requested Visits Authorized [id number] Closed Auto-Generate d Referral 07/05/2022 08/04/2023 1 1 [facility] for visit Narrative* Diagnostic Procedure Only (Routine) - Closed Specialty Diagnoses / Procedures Referred By Farheen taylor Referred To Contact BR IMAGING Diagnoses Encounter for screening mammogram for breast cancer Procedures GILBERTO SCREENING W ASHLEY SCREENING DIGITAL BREAST TOMOSYNTHESIS BI SCREENING MAMMOGRAPHY BI 2-VIEW BREAST INC CAD David Kilgore, DO [address] [place] [address] Br Imaging [address] [place] [address] Referral ID Status Reason Start Date Expiration Date V isits Requested Visits Authorized [id number] Closed Auto-Generate d Referral 12/14/2024 01/13/2026 1 1 [facility] for visit Narrative* Outpatient Procedure (Routine) - Closed Specialty Diagnoses / Procedures Referred By Farheen taylor Referred To Contact [facility] Diagnoses Gastroesophageal reflux disease, unspecified whether esophagitis present Procedures EGD DIAGNOSTIC ESOPHAGOGASTRODUODENOSC OPY TRANSORAL DIAGNOSTIC Janiya Ziegler APRN.CNP [address] [place] [address] Phone: tel: fax: [facility] [address] [place] [address] Referral ID Status Reason Start Date Expiration Date V isits Requested Visits Authorized [id number] Closed Auto-Generate d Referral 02/04/2025 02/04/2026 1 1 [facility] for visit Narrative* MRI/CT (Routine) - Pending Review Specialty Diagnoses / Procedures Referred By Farheen taylor Referred To Contact MR IMAGING Diagnoses Disorder of bone Procedures MRI SACRUM/COCCYX WO IVCON MRI PELVIS W/O CONTRAST MATERIAL Ajit Torre MD [address] [place] [phone] Phone: tel: MR IMAGING [facility] Referral ID Status Reason Start Date Expiration Date Visits Requested Visits Authorized [id number] Pending Review Auto-Generate d Referral Clearance Not Met -Financial Clearance Bypassed or Pt Declined to Pay 03/15/2025 04/14/2026 [facility] Diagnostic Procedure Only (Routine) - Closed Specialty Diagnoses / Procedures Referred By Contac t Referred To Contact XR IMAGING Diagnoses Disorder of bone Chronic midline low back pain without sciatica Procedures XR SACROILIAC JOINTS 2V AP PELVIS/FERGUESON RADIOLOGIC EXAMINATION SACROILIAC JNTS <3 VIEWS Ajit Torre MD [address] [place] [phone] Phone: tel: XR IMAGING [facility] Referral ID Status Reason Start Date Expiration Date V isits Requested Visits Authorized [id number] Closed Auto-Generate d Referral 03/15/2025 04/14/2026 1 1 [facility] Chief Complaint and Reason for Visit Chief Complaint migraine Chief Complaint migraine HEADACHE Advance Directives No Advanced Directives Records Found Advance Directive Response Recorded Date/ Time Living Will No February 19, 2022 10:52pm 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 No February 19 10:52pm Documents on File Type Date Recorded 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 Advance Directive(s) 01/10/2022 7:29 AM Advance Directive(s) 12/31/2021 2:05 PM Advance Directive(s) 03/21/2021 2:06 PM Documents on File Type Date Recorded 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 Advance Directive(s) 03/07/2022 8:12 AM Advance Directive(s) 01/10/2022 7:29 AM Advance Directive(s) 12/31/2021 2:05 PM Advance Directive(s) 03/21/2021 2:06 PM Documents on File Type Date Recorded 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 Advance Directive(s) 03/07/2022 8:12 AM Advance Directive(s) 01/10/2022 7:29 AM Advance Directive(s) 12/31/2021 2:05 PM Advance Directive(s) 03/21/2021 2:06 PM Advance Directive Response Recorded Date/ Time Living Will No May 18, 2022 9:12pm 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 No May 18 9:12pm Documents on File Type Date Recorded 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 Advance Directive(s) 07/02/2022 7:32 AM Advance Directive(s) 06/28/2022 11:59 AM Advance Directive(s) 03/07/2022 8:12 AM Advance Directive(s) 01/10/2022 7:29 AM Advance Directive(s) 12/31/2021 2:05 PM Advance Directive(s) 03/21/2021 2:06 PM Summary Purpose Family History No Family History Records FoundNo Family History Records FoundNo Family History Records FoundNo Family History Records FoundNo Family History Records Found Reason for Referral Specialty Diagnoses / Procedures Referred By Contac t Referred To Contact Diagnoses Chronic migraine without aura, with intractable migraine, so stated, with status migrainosus Procedures PROVIDER ORDERED FOLLOW UP OFFICE/OUTPATIENT [facility] 60-74 MINUTES Sue Concepcion MD [address] [place] [phone] Sue Concepcion MD [address] [place] [address] Referral ID Status Reason Start Date Expiration Date Visits Requested Visits Authorized [id number] Authorized PCP Requested Referral 06/14/2022 09/05/2022 1 1 Specialty Diagnoses / Procedures Referred By Contac t Referred To Contact Diagnoses Chronic migraine without aura, intractable, without status migrainosus Procedures PROVIDER ORDERED FOLLOW UP OFFICE/OUTPATIENT [facility] 60-74 MINUTES Sue Concepcion MD [address] [place] [phone] Sue Concepcion MD [address] [place] [address] Referral ID Status Reason Start Date Expiration Date Visits Requested Visits Authorized [id number] Authorized PCP Requested Referral 07/14/2022 09/11/2022 1 1 Referral ID Status Reason Start Date Expiration Date Visits Requested Visits Authorized [id number] Authorized PCP Requested Referral 10/03/2022 01/01/2023 1 1 Specialty Diagnoses / Procedures Referred By Contac t Referred To Contact Diagnoses Dyslipidemia PCOS (polycystic ovarian syndrome) Impaired fasting blood sugar Obesity, Class I, BMI 30-34.9 Procedures ENDOCRINOLOGY DIETITIAN VISIT (MNT) OFFICE/OUTPATIENT NEW [facility] 60-74 MINUTES Lani Xavier MD [address] [place] [address] Referral ID Status Reason Start Date Expiration Date Visits Requested Visits Authorized [id number] Authorized PCP Requested Referral 2 10/23/2023 1 1 Specialty Diagnoses / Procedures Referred By Contac t Referred To Contact Lani Xavier MD [address] [place] [address] Referral ID Status Reason Start Date Expiration Date V isits Requested Visits Authorized [id number] Pending Review 1 1 Referral ID Status Reason Start Date Expiration Date Visits Requested Visits Authorized [id number] Authorized PCP Requested Referral 04/08/2023 04/09/2023 1 1 Referral ID Status Reason Start Date Expiration Date Visits Re quested Visits Authorized [id number] Closed 1 1 Specialty Diagnoses / Procedures Referred By Contact Referred To Contact [facility] Diagnoses Tear of right acetabular labrum, subsequent encounter Procedures CONSULT TO PHYSICAL THERAPY PHYSICAL THERAPY EVALUATION HIGH COMPLEX 45 MINS Dian Sierra, ARGELIA [address] [place] [address] [facility] [address] [address] Referral ID Status Reason Start Date Expiration Date Visits Requested Visits Authorized [id number] Pending Review Auto-Generat ed Referral 05/30/2023 05/08/2024 1 1 Specialty Diagnoses / Procedures Referred By Contac t Referred To Contact [facility] Diagnoses Neck pain Myofascial muscle pain Right hip impingement syndrome Pain in right hip Procedures PT REHAB FOLLOW UP ORDER THERAPEUTIC EXERCISES RE, EA 15 MIN. Pt [facility] [address] [place] [address] [facility] [address] [address] Referral ID Status Reason Start Date Expiration Date Visits Requested Visits Authorized [id number] Pending Review PCP Requested Referral Auto-Generate d Referral 06/13/2023 09/11/2023 1 1 Specialty Diagnoses / Procedures Referred By Contac t Referred To Contact Diagnoses PCOS (polycystic ovarian syndrome) Hyperlipidemia, unspecified hyperlipidemia type Impaired fasting glucose Class 1 obesity with serious comorbidity and body mass index (BMI) of 32.0 to 32.9 in adult, unspecified obesity type Maddie Moraes BEAUTY CULTURIST.MILLED RICE BROKER [address] [place] [address] Referral ID Status Reason Start Date Expiration Date Visits Re quested Visits Authorized [id number] Closed 1 1 Specialty Diagnoses / Procedures Referred By Contac t Referred To Contact [facility] Diagnoses Spinal stenosis of cervical region Radiculopathy, cervical region Procedures CONSULT TO PHYSICAL THERAPY PHYSICAL THERAPY EVALUATION HIGH COMPLEX 45 MINS Jacobo Cheng MD [address] [address] [facility] [address] [address] Referral ID Status Reason Start Date Expiration Date Visits Requested Visits Authorized [id number] Pending Review Auto-Generat ed Referral 05/19/2024 05/19/2025 1 1 Specialty Diagnoses / Procedures Referred By Contac t Referred To Contact MR IMAGING Diagnoses Spinal stenosis of cervical region Procedures MRI CERVICAL SPINE WO IVCON MRI SPINAL CANAL CERVICAL W/O CONTRAST Jacobo Galindo MD [address] [address] [place] [address] Referral ID Status Reason Start Date Expiration Date Visits Requested Visits Authorized [id number] Incomplete Auto-Generat ed Referral 05/19/2024 06/18/2025 1 1 Specialty Diagnoses / Procedures Referred By Contac t Referred To Contact MR IMAGING Diagnoses Spinal stenosis of cervical region Radiculopathy, cervical region Procedures MRI CERVICAL SPINE WO IVCON MRI SPINAL CANAL CERVICAL W/O CONTRAST Adele Richmond, BEAUTY CULTURIST.MILLED RICE BROKER [address] [place] [address] [place] [address] Referral ID Status Reason Start Date Expiration Date Visits Requested Visits Authorized [id number] Incomplete Auto-Generat ed Referral 07/08/2024 08/07/2025 1 1 Specialty Diagnoses / Procedures Referred By Contac t Referred To Contact MR IMAGING Diagnoses Spinal stenosis of cervical region Radiculopathy, cervical region Procedures MRI CERVICAL SPINE WO IVCON MRI SPINAL CANAL CERVICAL W/O CONTRAST Adele Richmond, BEAUTY CULTURIST.MILLED RICE BROKER [address] [place] [address] [address] Referral ID Status Reason Start Date Expiration Date V isits Requested Visits Authorized [id number] Closed Auto-Generate d Referral 08/11/2024 11/10/2024 1 1 Specialty Diagnoses / Procedures Referred By Contac t Referred To Contact Diagnoses PCOS (polycystic ovarian syndrome) Impaired fasting glucose Inflammatory arthritis History of obesity Maddie Moraes, BEAUTY CULTURIST.MILLED RICE BROKER [address] [place] [address] Referral ID Status Reason Start Date Expiration Date V isits Requested Visits Authorized [id number] Pending Review 1 1 Specialty Diagnoses / Procedures Referred By Contac t Referred To Contact MR IMAGING Diagnoses Right hip impingement syndrome Procedures MRI HIP WO IVCON RT MRI ANY JT LOWER EXTREM W/O CONTRAST Dian Summers PA-C [address] [place] [address] [address] Referral ID Status Reason Start Date Expiration Date V isits Requested Visits Authorized [id number] Closed Auto-Generate d Referral 09/10/2022 12/20/2022 1 1 Specialty Diagnoses / Procedures Referred By Contac t Referred To Contact Diagnoses Herniation of cervical intervertebral disc with radiculopathy Foraminal stenosis of cervical region Procedures CONSULT TO SPINE SURGERY OFFICE/OUTPATIENT [facility] 60 MINUTES Jacobo Cheng MD [address] [facility] [id number] [place] [address] Referral ID Status Reason Start Date Expiration Date V isits Requested Visits Authorized [id number] Authorized 10/06/2024 01/04/2025 1 1 Specialty Diagnoses / Procedures Referred By Contac t Referred To Contact Gastroenterology Diagnoses Gastroesophageal reflux disease, unspecified whether esophagitis present Procedures CONSULT TO GASTROENTEROLOGY OFFICE/OUTPATIENT [facility] 60 MINUTES Roxanna Nunes PA-C [address] [place] [address] Referral ID Status Reason Start Date Expiration Date Visits Requested Visits Authorized [id number] Authorized PCP Requested Referral 12/28/2024 12/28/2025 1 1 Specialty Diagnoses / Procedures Referred By Contac t Referred To Contact MR IMAGING Diagnoses Thunderclap headache Procedures MRI BRAIN WO/W IVCON MRI BRAIN BRAIN STEM W/O W/CONTRAST MATERIAL David Kilgore DO [address] [place] [address] [facility] [address] [place] [address] Referral ID Status Reason Start Date Expiration Date V isits Requested Visits Authorized [id number] Denied Auto-Generat ed Referral Patient Cleared - Admin/Chairm an/Director advise to proceed or did not respond 12/30/2024 03/30/2025 1 0 Medications Administered Section Inactive Administered Medications - up to 3 most recent administrations Medication Order MAR Action Action Date Dose Rate Site acetaminophen 1,000 mg tab(s) (TYLENOL) 1,000 mg, ORAL, ONCE, 1 dose, On Fri07/22/22 at 0900, No more than 4000 mg of acetaminophen should be given per day (FROM ALL SOURCES), If ordered PRN for pain, patient/guardian may elect to receive this medication for higher pain levels INSTEAD of the opioid, if preferred: N/A Given 07/22/2022 9:25 AM EDT 1,000 mg diphenhydrAMINE 25 mg (BENADRYL) 25 mg, ORAL, ONCE, 1 dose, On Fri07/22/22 at 0900 Given 07/22/2022 9:25 AM EDT 25 mg golimumab 157.75 mg in NaCl 0.9% 100 mL (SIMPONI ARIA) 157.75 mg (rounded from 157.8 mg = 2 mg/kg/dose 78.9 kg Treatment plan Recorded weight), INTRAVENOUS, at 200 mL/hr, Administer over 30 Minutes, ONCE, 1 dose, On Fri07/22/22 at 0900, Infuse over 30 minutes. Administer with 0.2 micron filter. +++ TOTAL VOLUME = 100 mL +++ New Bag/Syringe/Bottle 07/22/2022 10:13 AM EDT 157.75 mg 200 mL/hr Inactive Administered Medications - up to 3 most recent administrations Medication Order MAR Action Action Date Dose Rate Site acetaminophen 1,000 mg tab(s) (TYLENOL) 1,000 mg, ORAL, ONCE, 1 dose, On Fri08/20/22 at 1430, No more than 4000 mg of acetaminophen should be given per day (FROM ALL SOURCES), If ordered PRN for pain, patient/guardian may elect to receive this medication for higher pain levels INSTEAD of the opioid, if preferred: N/A Given 08/20/2022 2:22 PM EDT 1,000 mg diphenhydrAMINE 25 mg (BENADRYL) 25 mg, ORAL, ONCE, 1 dose, On Fri08/20/22 at 1430 Given 08/20/2022 2:22 PM EDT 25 mg golimumab 157.75 mg in NaCl 0.9% 100 mL (SIMPONI ARIA) 157.75 mg (rounded from 157.8 mg = 2 mg/kg/dose 78.9 kg Treatment plan Recorded weight), INTRAVENOUS, at 200 mL/hr, Administer over 30 Minutes, ONCE, 1 dose, On Fri08/20/22 at 1430, Infuse over 30 minutes. Immediate use Administer with 0.2 micron filter. +++ TOTAL VOLUME = 100 mL +++ New Bag/Syringe/Bottle 08/20/2022 2:43 PM EDT 157.75 mg 200 mL/hr Inactive Administered Medications - up to 3 most recent administrations Medication Order MAR Action Action Date Dose Rate Site acetaminophen 1,000 mg tab(s) (TYLENOL) 1,000 mg, ORAL, ONCE, 1 dose, On Fri10/15/22 at 1030, No more than 4000 mg of acetaminophen should be given per day (FROM ALL SOURCES), If ordered PRN for pain, patient/guardian may elect to receive this medication for higher pain levels INSTEAD of the opioid, if preferred: N/A Given 10/15/2022 10:26 AM EST 1,000 mg dexAMETHasone 10 mg/NS 50 mL (PYXIS) 10 mg ivpb (DECADRON) 10 mg, INTRAVENOUS, at 200 mL/hr, Administer over 15 Minutes, ONCE, 1 dose, On Fri10/15/22 at 1030, Refrigerate. New Bag/Syringe/Bottle 10/15/2022 10:31 AM EST 10 mg 200 mL/hr diphenhydrAMINE 25 mg injection (BENADRYL) 25 mg, INTRAVENOUS, ONCE, 1 dose, On Fri10/15/22 at 1030 Given 10/15/2022 10:26 AM EST 50 mg golimumab 157.75 mg in NaCl 0.9% 100 mL (SIMPONI ARIA) 157.75 mg (rounded from 157.8 mg = 2 mg/kg/dose 78.9 kg Treatment plan Recorded weight), INTRAVENOUS, at 200 mL/hr, Administer over 30 Minutes, ONCE, 1 dose, On Fri10/15/22 at 1030, Infuse over 30 minutes. Administer with 0.2 micron filter. +++ TOTAL VOLUME = 100 mL +++ New Bag/Syringe/Bottle 10/15/2022 10:46 AM EST 157.75 mg 200 mL/hr metoclopramide HCl 10 mg injection (REGLAN) 10 mg, INTRAVENOUS, ONCE, 1 dose, On Fri10/15/22 at 1030 Given 10/15/2022 10:29 AM EST 10 mg Inactive Administered Medications - up to 3 most recent administrations Medication Order MAR Action Action Date Dose Rate Site golimumab 157.75 mg in NaCl 0.9% 100 mL (SIMPONI ARIA) 157.75 mg (rounded from 157.8 mg = 2 mg/kg/dose 78.9 kg Treatment plan Recorded weight), INTRAVENOUS, at 200 mL/hr, Administer over 30 Minutes, ONCE, 1 dose, On Jennifer 12/19/22 at 1130, Infuse over 30 minutes. exp 1600 12/19/22 (room temp) Administer with 0.2 micron filter. +++ TOTAL VOLUME = 100 mL +++ New Bag/Syringe/Bottle 12/19/2022 11:37 AM EST 157.75 mg 200 mL/hr Health Concerns Infection Onset Date Last Indicated Resolved Time COVID-19 Rule-Out 04/02/2023 04/02/2023 Additional Source Comments Goals (unrecognized section and content) Goals may be documented in a n alternate sectionGoals may be documented in an alternate section Source Comments (unrecognize d section and content) In the event this informatio n is protected by the Federal Confidentiality of Alcohol and Drug Abuse Patient Records regulations: The Federal rules restrict any use of the information to criminally investigate or prosecute any alcohol or drug abuse patient.[facility]In the event this information is protected by the Federal Confidentiality of Alcohol and Drug Abuse Patient Records regulations: The Federal rules restrict any use of the information to criminally investigate or prosecute any alcohol or drug abuse patient.[facility]In the event this information is protected by the Federal Confidentiality of Alcohol and Drug Abuse Patient Records regulations: The Federal rules restrict any use of the information to criminally investigate or prosecute any alcohol or drug abuse patient.[facility]In the event this information is protected by the Federal Confidentiality of Alcohol and Drug Abuse Patient Records regulations: The Federal rules restrict any use of the information to criminally investigate or prosecute any alcohol or drug abuse patient.[facility]In the event this information is protected by the Federal Confidentiality of Alcohol and Drug Abuse Patient Records regulations: The Federal rules restrict any use of the information to criminally investigate or prosecute any alcohol or drug abuse patient.[facility]In the event this information is protected by the Federal Confidentiality of Alcohol and Drug Abuse Patient Records regulations: The Federal rules restrict any use of the information to criminally investigate or prosecute any alcohol or drug abuse patient.[facility]In the event this information is protected by the Federal Confidentiality of Alcohol and Drug Abuse Patient Records regulations: The Federal rules restrict any use of the information to criminally investigate or prosecute any alcohol or drug abuse patient.[facility]In the event this information is protected by the Federal Confidentiality of Alcohol and Drug Abuse Patient Records regulations: The Federal rules restrict any use of the information to criminally investigate or prosecute any alcohol or drug abuse patient.[facility] the event this information is protected by the Federal Confidentiality of Alcohol and Drug Abuse Patient Records regulations: The Federal rules restrict any use of the information to criminally investigate or prosecute any alcohol or drug abuse patient.[facility]In the event this information is protected by the Federal Confidentiality of Alcohol and Drug Abuse Patient Records regulations: The Federal rules restrict any use of the information to criminally investigate or prosecute any alcohol or drug abuse patient.[facility]In the event this information is protected by the Federal Confidentiality of Alcohol and Drug Abuse Patient Records regulations: The Federal rules restrict any use of the information to criminally investigate or prosecute any alcohol or drug abuse patient.[facility]In the event this information is protected by the Federal Confidentiality of Alcohol and Drug Abuse Patient Records regulations: The Federal rules restrict any use of the information to criminally investigate or prosecute any alcohol or drug abuse patient.[facility]In the event this information is protected by the Federal Confidentiality of Alcohol and Drug Abuse Patient Records regulations: The Federal rules restrict any use of the information to criminally investigate or prosecute any alcohol or drug abuse patient.[facility]In the event this information is protected by the Federal Confidentiality of Alcohol and Drug Abuse Patient Records regulations: The Federal rules restrict any use of the information to criminally investigate or prosecute any alcohol or drug abuse patient.[facility]In the event this information is protected by the Federal Confidentiality of Alcohol and Drug Abuse Patient Records regulations: The Federal rules restrict any use of the information to criminally investigate or prosecute any alcohol or drug abuse patient.[facility]In the event this information is protected by the Federal Confidentiality of Alcohol and Drug Abuse Patient Records regulations: The Federal rules restrict any use of the information to criminally investigate or prosecute any alcohol or drug abuse patient.[facility]In the event this information is protected by the Federal Confidentiality of Alcohol and Drug Abuse Patient Records regulations: The Federal rules restrict any use of the information to criminally investigate or prosecute any alcohol or drug abuse patient.[facility]In the event this information is protected by the Federal Confidentiality of Alcohol and Drug Abuse Patient Records regulations: The Federal rules restrict any use of the information to criminally investigate or prosecute any alcohol or drug abuse patient.[facility]In the event this information is protected by the Federal Confidentiality of Alcohol and Drug Abuse Patient Records regulations: The Federal rules restrict any use of the information to criminally investigate or prosecute any alcohol or drug abuse patient.[facility]In the event this information is protected by the Federal Confidentiality of Alcohol and Drug Abuse Patient Records regulations: The Federal rules restrict any use of the information to criminally investigate or prosecute any alcohol or drug abuse patient.[facility]In the event this information is protected by the Federal Confidentiality of Alcohol and Drug Abuse Patient Records regulations: The Federal rules restrict any use of the information to criminally investigate or prosecute any alcohol or drug abuse patient.[facility]In the event this information is protected by the Federal Confidentiality of Alcohol and Drug Abuse Patient Records regulations: The Federal rules restrict any use of the information to criminally investigate or prosecute any alcohol or drug abuse patient.[facility]In the event this information is protected by the Federal Confidentiality of Alcohol and Drug Abuse Patient Records regulations: The Federal rules restrict any use of the information to criminally investigate or prosecute any alcohol or drug abuse patient.[facility]In the event this information is protected by the Federal Confidentiality of Alcohol and Drug Abuse Patient Records regulations: The Federal rules restrict any use of the information to criminally investigate or prosecute any alcohol or drug abuse patient.[facility]In the event this information is protected by the Federal Confidentiality of Alcohol and Drug Abuse Patient Records regulations: The Federal rules restrict any use of the information to criminally investigate or prosecute any alcohol or drug abuse patient.[facility]In the event this information is protected by the Federal Confidentiality of Alcohol and Drug Abuse Patient Records regulations: The Federal rules restrict any use of the information to criminally investigate or prosecute any alcohol or drug abuse patient.[facility]In the event this information is protected by the Federal Confidentiality of Alcohol and Drug Abuse Patient Records regulations: The Federal rules restrict any use of the information to criminally investigate or prosecute any alcohol or drug abuse patient.[facility]In the event this information is protected by the Federal Confidentiality of Alcohol and Drug Abuse Patient Records regulations: The Federal rules restrict any use of the information to criminally investigate or prosecute any alcohol or drug abuse patient.[facility]In the event this information is protected by the Federal Confidentiality of Alcohol and Drug Abuse Patient Records regulations: The Federal rules restrict any use of the information to criminally investigate or prosecute any alcohol or drug abuse patient.[facility]In the event this information is protected by the Federal Confidentiality of Alcohol and Drug Abuse Patient Records regulations: The Federal rules restrict any use of the information to criminally investigate or prosecute any alcohol or drug abuse patient.[facility]In the event this information is protected by the Federal Confidentiality of Alcohol and Drug Abuse Patient Records regulations: The Federal rules restrict any use of the information to criminally investigate or prosecute any alcohol or drug abuse patient.[facility]In the event this information is protected by the Federal Confidentiality of Alcohol and Drug Abuse Patient Records regulations: The Federal rules restrict any use of the information to criminally investigate or prosecute any alcohol or drug abuse patient.[facility]In the event this information is protected by the Federal Confidentiality of Alcohol and Drug Abuse Patient Records regulations: The Federal rules restrict any use of the information to criminally investigate or prosecute any alcohol or drug abuse patient.[facility]In the event this information is protected by the Federal Confidentiality of Alcohol and Drug Abuse Patient Records regulations: The Federal rules restrict any use of the information to criminally investigate or prosecute any alcohol or drug abuse patient.[facility]In the event this information is protected by the Federal Confidentiality of Alcohol and Drug Abuse Patient Records regulations: The Federal rules restrict any use of the information to criminally investigate or prosecute any alcohol or drug abuse patient.[facility]In the event this information is protected by the Federal Confidentiality of Alcohol and Drug Abuse Patient Records regulations: The Federal rules restrict any use of the information to criminally investigate or prosecute any alcohol or drug abuse patient.[facility]In the event this information is protected by the Federal Confidentiality of Alcohol and Drug Abuse Patient Records regulations: The Federal rules restrict any use of the information to criminally investigate or prosecute any alcohol or drug abuse patient.[facility]In the event this information is protected by the Federal Confidentiality of Alcohol and Drug Abuse Patient Records regulations: The Federal rules restrict any use of the information to criminally investigate or prosecute any alcohol or drug abuse patient.[facility]In the event this information is protected by the Federal Confidentiality of Alcohol and Drug Abuse Patient Records regulations: The Federal rules restrict any use of the information to criminally investigate or prosecute any alcohol or drug abuse patient.[facility]In the event this information is protected by the Federal Confidentiality of Alcohol and Drug Abuse Patient Records regulations: The Federal rules restrict any use of the information to criminally investigate or prosecute any alcohol or drug abuse patient.[facility]In the event this information is protected by the Federal Confidentiality of Alcohol and Drug Abuse Patient Records regulations: The Federal rules restrict any use of the information to criminally investigate or prosecute any alcohol or drug abuse patient.[facility]In the event this information is protected by the Federal Confidentiality of Alcohol and Drug Abuse Patient Records regulations: The Federal rules restrict any use of the information to criminally investigate or prosecute any alcohol or drug abuse patient.[facility]In the event this information is protected by the Federal Confidentiality of Alcohol and Drug Abuse Patient Records regulations: The Federal rules restrict any use of the information to criminally investigate or prosecute any alcohol or drug abuse patient.[facility]In the event this information is protected by the Federal Confidentiality of Alcohol and Drug Abuse Patient Records regulations: The Federal rules restrict any use of the information to criminally investigate or prosecute any alcohol or drug abuse patient.[facility]In the event this information is protected by the Federal Confidentiality of Alcohol and Drug Abuse Patient Records regulations: The Federal rules restrict any use of the information to criminally investigate or prosecute any alcohol or drug abuse patient.[facility]In the event this information is protected by the Federal Confidentiality of Alcohol and Drug Abuse Patient Records regulations: The Federal rules restrict any use of the information to criminally investigate or prosecute any alcohol or drug abuse patient.[facility]In the event this information is protected by the Federal Confidentiality of Alcohol and Drug Abuse Patient Records regulations: The Federal rules restrict any use of the information to criminally investigate or prosecute any alcohol or drug abuse patient.[facility]In the event this information is protected by the Federal Confidentiality of Alcohol and Drug Abuse Patient Records regulations: The Federal rules restrict any use of the information to criminally investigate or prosecute any alcohol or drug abuse patient.[facility]In the event this information is protected by the Federal Confidentiality of Alcohol and Drug Abuse Patient Records regulations: The Federal rules restrict any use of the information to criminally investigate or prosecute any alcohol or drug abuse patient.[facility]In the event this information is protected by the Federal Confidentiality of Alcohol and Drug Abuse Patient Records regulations: The Federal rules restrict any use of the information to criminally investigate or prosecute any alcohol or drug abuse patient.[facility]In the event this information is protected by the Federal Confidentiality of Alcohol and Drug Abuse Patient Records regulations: The Federal rules restrict any use of the information to criminally investigate or prosecute any alcohol or drug abuse patient.[facility]In the event this information is protected by the Federal Confidentiality of Alcohol and Drug Abuse Patient Records regulations: The Federal rules restrict any use of the information to criminally investigate or prosecute any alcohol or drug abuse patient.[facility]In the event this information is protected by the Federal Confidentiality of Alcohol and Drug Abuse Patient Records regulations: The Federal rules restrict any use of the information to criminally investigate or prosecute any alcohol or drug abuse patient.[facility]In the event this information is protected by the Federal Confidentiality of Alcohol and Drug Abuse Patient Records regulations: The Federal rules restrict any use of the information to criminally investigate or prosecute any alcohol or drug abuse patient.[facility]In the event this information is protected by the Federal Confidentiality of Alcohol and Drug Abuse Patient Records regulations: The Federal rules restrict any use of the information to criminally investigate or prosecute any alcohol or drug abuse patient.[facility]In the event this information is protected by the Federal Confidentiality of Alcohol and Drug Abuse Patient Records regulations: The Federal rules restrict any use of the information to criminally investigate or prosecute any alcohol or drug abuse patient.[facility]In the event this information is protected by the Federal Confidentiality of Alcohol and Drug Abuse Patient Records regulations: The Federal rules restrict any use of the information to criminally investigate or prosecute any alcohol or drug abuse patient.[facility]In the event this information is protected by the Federal Confidentiality of Alcohol and Drug Abuse Patient Records regulations: The Federal rules restrict any use of the information to criminally investigate or prosecute any alcohol or drug abuse patient.[facility] the event this information is protected by the Federal Confidentiality of Alcohol and Drug Abuse Patient Records regulations: The Federal rules restrict any use of the information to criminally investigate or prosecute any alcohol or drug abuse patient.[facility]In the event this information is protected by the Federal Confidentiality of Alcohol and Drug Abuse Patient Records regulations: The Federal rules restrict any use of the information to criminally investigate or prosecute any alcohol or drug abuse patient.[facility]In the event this information is protected by the Federal Confidentiality of Alcohol and Drug Abuse Patient Records regulations: The Federal rules restrict any use of the information to criminally investigate or prosecute any alcohol or drug abuse patient.[facility]In the event this information is protected by the Federal Confidentiality of Alcohol and Drug Abuse Patient Records regulations: The Federal rules restrict any use of the information to criminally investigate or prosecute any alcohol or drug abuse patient.[facility]In the event this information is protected by the Federal Confidentiality of Alcohol and Drug Abuse Patient Records regulations: The Federal rules restrict any use of the information to criminally investigate or prosecute any alcohol or drug abuse patient.[facility]In the event this information is protected by the Federal Confidentiality of Alcohol and Drug Abuse Patient Records regulations: The Federal rules restrict any use of the information to criminally investigate or prosecute any alcohol or drug abuse patient.[facility]In the event this information is protected by the Federal Confidentiality of Alcohol and Drug Abuse Patient Records regulations: The Federal rules restrict any use of the information to criminally investigate or prosecute any alcohol or drug abuse patient.[facility]In the event this information is protected by the Federal Confidentiality of Alcohol and Drug Abuse Patient Records regulations: The Federal rules restrict any use of the information to criminally investigate or prosecute any alcohol or drug abuse patient.[facility]In the event this information is protected by the Federal Confidentiality of Alcohol and Drug Abuse Patient Records regulations: The Federal rules restrict any use of the information to criminally investigate or prosecute any alcohol or drug abuse patient.[facility]In the event this information is protected by the Federal Confidentiality of Alcohol and Drug Abuse Patient Records regulations: The Federal rules restrict any use of the information to criminally investigate or prosecute any alcohol or drug abuse patient.[facility]In the event this information is protected by the Federal Confidentiality of Alcohol and Drug Abuse Patient Records regulations: The Federal rules restrict any use of the information to criminally investigate or prosecute any alcohol or drug abuse patient.[facility]In the event this information is protected by the Federal Confidentiality of Alcohol and Drug Abuse Patient Records regulations: The Federal rules restrict any use of the information to criminally investigate or prosecute any alcohol or drug abuse patient.[facility]In the event this information is protected by the Federal Confidentiality of Alcohol and Drug Abuse Patient Records regulations: The Federal rules restrict any use of the information to criminally investigate or prosecute any alcohol or drug abuse patient.[facility]In the event this information is protected by the Federal Confidentiality of Alcohol and Drug Abuse Patient Records regulations: The Federal rules restrict any use of the information to criminally investigate or prosecute any alcohol or drug abuse patient.[facility]In the event this information is protected by the Federal Confidentiality of Alcohol and Drug Abuse Patient Records regulations: The Federal rules restrict any use of the information to criminally investigate or prosecute any alcohol or drug abuse patient.[facility]In the event this information is protected by the Federal Confidentiality of Alcohol and Drug Abuse Patient Records regulations: The Federal rules restrict any use of the information to criminally investigate or prosecute any alcohol or drug abuse patient.[facility]In the event this information is protected by the Federal Confidentiality of Alcohol and Drug Abuse Patient Records regulations: The Federal rules restrict any use of the information to criminally investigate or prosecute any alcohol or drug abuse patient.[facility]In the event this information is protected by the Federal Confidentiality of Alcohol and Drug Abuse Patient Records regulations: The Federal rules restrict any use of the information to criminally investigate or prosecute any alcohol or drug abuse patient.[facility]In the event this information is protected by the Federal Confidentiality of Alcohol and Drug Abuse Patient Records regulations: The Federal rules restrict any use of the information to criminally investigate or prosecute any alcohol or drug abuse patient.[facility]In the event this information is protected by the Federal Confidentiality of Alcohol and Drug Abuse Patient Records regulations: The Federal rules restrict any use of the information to criminally investigate or prosecute any alcohol or drug abuse patient.[facility]In the event this information is protected by the Federal Confidentiality of Alcohol and Drug Abuse Patient Records regulations: The Federal rules restrict any use of the information to criminally investigate or prosecute any alcohol or drug abuse patient.[facility]In the event this information is protected by the Federal Confidentiality of Alcohol and Drug Abuse Patient Records regulations: The Federal rules restrict any use of the information to criminally investigate or prosecute any alcohol or drug abuse patient.[facility]In the event this information is protected by the Federal Confidentiality of Alcohol and Drug Abuse Patient Records regulations: The Federal rules restrict any use of the information to criminally investigate or prosecute any alcohol or drug abuse patient.[facility]In the event this information is protected by the Federal Confidentiality of Alcohol and Drug Abuse Patient Records regulations: The Federal rules restrict any use of the information to criminally investigate or prosecute any alcohol or drug abuse patient.[facility]In the event this information is protected by the Federal Confidentiality of Alcohol and Drug Abuse Patient Records regulations: The Federal rules restrict any use of the information to criminally investigate or prosecute any alcohol or drug abuse patient.[facility]In the event this information is protected by the Federal Confidentiality of Alcohol and Drug Abuse Patient Records regulations: The Federal rules restrict any use of the information to criminally investigate or prosecute any alcohol or drug abuse patient.[facility]In the event this information is protected by the Federal Confidentiality of Alcohol and Drug Abuse Patient Records regulations: The Federal rules restrict any use of the information to criminally investigate or prosecute any alcohol or drug abuse patient.[facility]In the event this information is protected by the Federal Confidentiality of Alcohol and Drug Abuse Patient Records regulations: The Federal rules restrict any use of the information to criminally investigate or prosecute any alcohol or drug abuse patient.[facility]In the event this information is protected by the Federal Confidentiality of Alcohol and Drug Abuse Patient Records regulations: The Federal rules restrict any use of the information to criminally investigate or prosecute any alcohol or drug abuse patient.[facility] HospitalIn the event this information is protected by the Federal Confidentiality of Alcohol and Drug Abuse Patient Records regulations: The Federal rules restrict any use of the information to criminally investigate or prosecute any alcohol or drug abuse patient.[facility] the event this information is protected by the Federal Confidentiality of Alcohol and Drug Abuse Patient Records regulations: The Federal rules restrict any use of the information to criminally investigate or prosecute any alcohol or drug abuse patient.[facility]In the event this information is protected by the Federal Confidentiality of Alcohol and Drug Abuse Patient Records regulations: The Federal rules restrict any use of the information to criminally investigate or prosecute any alcohol or drug abuse patient.[facility]In the event this information is protected by the Federal Confidentiality of Alcohol and Drug Abuse Patient Records regulations: The Federal rules restrict any use of the information to criminally investigate or prosecute any alcohol or drug abuse patient.[facility]In the event this information is protected by the Federal Confidentiality of Alcohol and Drug Abuse Patient Records regulations: The Federal rules restrict any use of the information to criminally investigate or prosecute any alcohol or drug abuse patient.[facility]In the event this information is protected by the Federal Confidentiality of Alcohol and Drug Abuse Patient Records regulations: The Federal rules restrict any use of the information to criminally investigate or prosecute any alcohol or drug abuse patient.[facility]In the event this information is protected by the Federal Confidentiality of Alcohol and Drug Abuse Patient Records regulations: The Federal rules restrict any use of the information to criminally investigate or prosecute any alcohol or drug abuse patient.[facility]In the event this information is protected by the Federal Confidentiality of Alcohol and Drug Abuse Patient Records regulations: The Federal rules restrict any use of the information to criminally investigate or prosecute any alcohol or drug abuse patient.[facility]In the event this information is protected by the Federal Confidentiality of Alcohol and Drug Abuse Patient Records regulations: The Federal rules restrict any use of the information to criminally investigate or prosecute any alcohol or drug abuse patient.[facility]In the event this information is protected by the Federal Confidentiality of Alcohol and Drug Abuse Patient Records regulations: The Federal rules restrict any use of the information to criminally investigate or prosecute any alcohol or drug abuse patient.[facility]In the event this information is protected by the Federal Confidentiality of Alcohol and Drug Abuse Patient Records regulations: The Federal rules restrict any use of the information to criminally investigate or prosecute any alcohol or drug abuse patient.[facility]In the event this information is protected by the Federal Confidentiality of Alcohol and Drug Abuse Patient Records regulations: The Federal rules restrict any use of the information to criminally investigate or prosecute any alcohol or drug abuse patient.[facility]In the event this information is protected by the Federal Confidentiality of Alcohol and Drug Abuse Patient Records regulations: The Federal rules restrict any use of the information to criminally investigate or prosecute any alcohol or drug abuse patient.[facility]In the event this information is protected by the Federal Confidentiality of Alcohol and Drug Abuse Patient Records regulations: The Federal rules restrict any use of the information to criminally investigate or prosecute any alcohol or drug abuse patient.[facility]In the event this information is protected by the Federal Confidentiality of Alcohol and Drug Abuse Patient Records regulations: The Federal rules restrict any use of the information to criminally investigate or prosecute any alcohol or drug abuse patient.[facility]In the event this information is protected by the Federal Confidentiality of Alcohol and Drug Abuse Patient Records regulations: The Federal rules restrict any use of the information to criminally investigate or prosecute any alcohol or drug abuse patient.[facility]In the event this information is protected by the Federal Confidentiality of Alcohol and Drug Abuse Patient Records regulations: The Federal rules restrict any use of the information to criminally investigate or prosecute any alcohol or drug abuse patient.[facility]In the event this information is protected by the Federal Confidentiality of Alcohol and Drug Abuse Patient Records regulations: The Federal rules restrict any use of the information to criminally investigate or prosecute any alcohol or drug abuse patient.[facility]In the event this information is protected by the Federal Confidentiality of Alcohol and Drug Abuse Patient Records regulations: The Federal rules restrict any use of the information to criminally investigate or prosecute any alcohol or drug abuse patient.[facility]In the event this information is protected by the Federal Confidentiality of Alcohol and Drug Abuse Patient Records regulations: The Federal rules restrict any use of the information to criminally investigate or prosecute any alcohol or drug abuse patient.[facility]In the event this information is protected by the Federal Confidentiality of Alcohol and Drug Abuse Patient Records regulations: The Federal rules restrict any use of the information to criminally investigate or prosecute any alcohol or drug abuse patient.[facility] the event this information is protected by the Federal Confidentiality of Alcohol and Drug Abuse Patient Records regulations: The Federal rules restrict any use of the information to criminally investigate or prosecute any alcohol or drug abuse patient.[facility]In the event this information is protected by the Federal Confidentiality of Alcohol and Drug Abuse Patient Records regulations: The Federal rules restrict any use of the information to criminally investigate or prosecute any alcohol or drug abuse patient.[facility]In the event this information is protected by the Federal Confidentiality of Alcohol and Drug Abuse Patient Records regulations: The Federal rules restrict any use of the information to criminally investigate or prosecute any alcohol or drug abuse patient.[facility]In the event this information is protected by the Federal Confidentiality of Alcohol and Drug Abuse Patient Records regulations: The Federal rules restrict any use of the information to criminally investigate or prosecute any alcohol or drug abuse patient.[facility]In the event this information is protected by the Federal Confidentiality of Alcohol and Drug Abuse Patient Records regulations: The Federal rules restrict any use of the information to criminally investigate or prosecute any alcohol or drug abuse patient.[facility]In the event this information is protected by the Federal Confidentiality of Alcohol and Drug Abuse Patient Records regulations: The Federal rules restrict any use of the information to criminally investigate or prosecute any alcohol or drug abuse patient.[facility]In the event this information is protected by the Federal Confidentiality of Alcohol and Drug Abuse Patient Records regulations: The Federal rules restrict any use of the information to criminally investigate or prosecute any alcohol or drug abuse patient.[facility]In the event this information is protected by the Federal Confidentiality of Alcohol and Drug Abuse Patient Records regulations: The Federal rules restrict any use of the information to criminally investigate or prosecute any alcohol or drug abuse patient.[facility]In the event this information is protected by the Federal Confidentiality of Alcohol and Drug Abuse Patient Records regulations: The Federal rules restrict any use of the information to criminally investigate or prosecute any alcohol or drug abuse patient.[facility]In the event this information is protected by the Federal Confidentiality of Alcohol and Drug Abuse Patient Records regulations: The Federal rules restrict any use of the information to criminally investigate or prosecute any alcohol or drug abuse patient.[facility]In the event this information is protected by the Federal Confidentiality of Alcohol and Drug Abuse Patient Records regulations: The Federal rules restrict any use of the information to criminally investigate or prosecute any alcohol or drug abuse patient.[facility]In the event this information is protected by the Federal Confidentiality of Alcohol and Drug Abuse Patient Records regulations: The Federal rules restrict any use of the information to criminally investigate or prosecute any alcohol or drug abuse patient.[facility]In the event this information is protected by the Federal Confidentiality of Alcohol and Drug Abuse Patient Records regulations: The Federal rules restrict any use of the information to criminally investigate or prosecute any alcohol or drug abuse patient.[facility]In the event this information is protected by the Federal Confidentiality of Alcohol and Drug Abuse Patient Records regulations: The Federal rules restrict any use of the information to criminally investigate or prosecute any alcohol or drug abuse patient.[facility]In the event this information is protected by the Federal Confidentiality of Alcohol and Drug Abuse Patient Records regulations: The Federal rules restrict any use of the information to criminally investigate or prosecute any alcohol or drug abuse patient.[facility]In the event this information is protected by the Federal Confidentiality of Alcohol and Drug Abuse Patient Records regulations: The Federal rules restrict any use of the information to criminally investigate or prosecute any alcohol or drug abuse patient.[facility]In the event this information is protected by the Federal Confidentiality of Alcohol and Drug Abuse Patient Records regulations: The Federal rules restrict any use of the information to criminally investigate or prosecute any alcohol or drug abuse patient.[facility]In the event this information is protected by the Federal Confidentiality of Alcohol and Drug Abuse Patient Records regulations: The Federal rules restrict any use of the information to criminally investigate or prosecute any alcohol or drug abuse patient.[facility]In the event this information is protected by the Federal Confidentiality of Alcohol and Drug Abuse Patient Records regulations: The Federal rules restrict any use of the information to criminally investigate or prosecute any alcohol or drug abuse patient.[facility]In the event this information is protected by the Federal Confidentiality of Alcohol and Drug Abuse Patient Records regulations: The Federal rules restrict any use of the information to criminally investigate or prosecute any alcohol or drug abuse patient.[facility]In the event this information is protected by the Federal Confidentiality of Alcohol and Drug Abuse Patient Records regulations: The Federal rules restrict any use of the information to criminally investigate or prosecute any alcohol or drug abuse patient.[facility]In the event this information is protected by the Federal Confidentiality of Alcohol and Drug Abuse Patient Records regulations: The Federal rules restrict any use of the information to criminally investigate or prosecute any alcohol or drug abuse patient.[facility]In the event this information is protected by the Federal Confidentiality of Alcohol and Drug Abuse Patient Records regulations: The Federal rules restrict any use of the information to criminally investigate or prosecute any alcohol or drug abuse patient.[facility]In the event this information is protected by the Federal Confidentiality of Alcohol and Drug Abuse Patient Records regulations: The Federal rules restrict any use of the information to criminally investigate or prosecute any alcohol or drug abuse patient.[facility]In the event this information is protected by the Federal Confidentiality of Alcohol and Drug Abuse Patient Records regulations: The Federal rules restrict any use of the information to criminally investigate or prosecute any alcohol or drug abuse patient.[facility]In the event this information is protected by the Federal Confidentiality of Alcohol and Drug Abuse Patient Records regulations: The Federal rules restrict any use of the information to criminally investigate or prosecute any alcohol or drug abuse patient.[facility]In the event this information is protected by the Federal Confidentiality of Alcohol and Drug Abuse Patient Records regulations: The Federal rules restrict any use of the information to criminally investigate or prosecute any alcohol or drug abuse patient.[facility]In the event this information is protected by the Federal Confidentiality of Alcohol and Drug Abuse Patient Records regulations: The Federal rules restrict any use of the information to criminally investigate or prosecute any alcohol or drug abuse patient.[facility]In the event this information is protected by the Federal Confidentiality of Alcohol and Drug Abuse Patient Records regulations: The Federal rules restrict any use of the information to criminally investigate or prosecute any alcohol or drug abuse patient.[facility]In the event this information is protected by the Federal Confidentiality of Alcohol and Drug Abuse Patient Records regulations: The Federal rules restrict any use of the information to criminally investigate or prosecute any alcohol or drug abuse patient.[facility]In the event this information is protected by the Federal Confidentiality of Alcohol and Drug Abuse Patient Records regulations: The Federal rules restrict any use of the information to criminally investigate or prosecute any alcohol or drug abuse patient.[facility]In the event this information is protected by the Federal Confidentiality of Alcohol and Drug Abuse Patient Records regulations: The Federal rules restrict any use of the information to criminally investigate or prosecute any alcohol or drug abuse patient.[facility]In the event this information is protected by the Federal Confidentiality of Alcohol and Drug Abuse Patient Records regulations: The Federal rules restrict any use of the information to criminally investigate or prosecute any alcohol or drug abuse patient.[facility]In the event this information is protected by the Federal Confidentiality of Alcohol and Drug Abuse Patient Records regulations: The Federal rules restrict any use of the information to criminally investigate or prosecute any alcohol or drug abuse patient.[facility]In the event this information is protected by the Federal Confidentiality of Alcohol and Drug Abuse Patient Records regulations: The Federal rules restrict any use of the information to criminally investigate or prosecute any alcohol or drug abuse patient.[facility]In the event this information is protected by the Federal Confidentiality of Alcohol and Drug Abuse Patient Records regulations: The Federal rules restrict any use of the information to criminally investigate or prosecute any alcohol or drug abuse patient.[facility]In the event this information is protected by the Federal Confidentiality of Alcohol and Drug Abuse Patient Records regulations: The Federal rules restrict any use of the information to criminally investigate or prosecute any alcohol or drug abuse patient.[facility]In the event this information is protected by the Federal Confidentiality of Alcohol and Drug Abuse Patient Records regulations: The Federal rules restrict any use of the information to criminally investigate or prosecute any alcohol or drug abuse patient.[facility]In the event this information is protected by the Federal Confidentiality of Alcohol and Drug Abuse Patient Records regulations: The Federal rules restrict any use of the information to criminally investigate or prosecute any alcohol or drug abuse patient.[facility]In the event this information is protected by the Federal Confidentiality of Alcohol and Drug Abuse Patient Records regulations: The Federal rules restrict any use of the information to criminally investigate or prosecute any alcohol or drug abuse patient.[facility]In the event this information is protected by the Federal Confidentiality of Alcohol and Drug Abuse Patient Records regulations: The Federal rules restrict any use of the information to criminally investigate or prosecute any alcohol or drug abuse patient.[facility]In the event this information is protected by the Federal Confidentiality of Alcohol and Drug Abuse Patient Records regulations: The Federal rules restrict any use of the information to criminally investigate or prosecute any alcohol or drug abuse patient.[facility]In the event this information is protected by the Federal Confidentiality of Alcohol and Drug Abuse Patient Records regulations: The Federal rules restrict any use of the information to criminally investigate or prosecute any alcohol or drug abuse patient.[facility]In the event this information is protected by the Federal Confidentiality of Alcohol and Drug Abuse Patient Records regulations: The Federal rules restrict any use of the information to criminally investigate or prosecute any alcohol or drug abuse patient.[facility]In the event this information is protected by the Federal Confidentiality of Alcohol and Drug Abuse Patient Records regulations: The Federal rules restrict any use of the information to criminally investigate or prosecute any alcohol or drug abuse patient.[facility]In the event this information is protected by the Federal Confidentiality of Alcohol and Drug Abuse Patient Records regulations: The Federal rules restrict any use of the information to criminally investigate or prosecute any alcohol or drug abuse patient.[facility]In the event this information is protected by the Federal Confidentiality of Alcohol and Drug Abuse Patient Records regulations: The Federal rules restrict any use of the information to criminally investigate or prosecute any alcohol or drug abuse patient.[facility]In the event this information is protected by the Federal Confidentiality of Alcohol and Drug Abuse Patient Records regulations: The Federal rules restrict any use of the information to criminally investigate or prosecute any alcohol or drug abuse patient.[facility]In the event this information is protected by the Federal Confidentiality of Alcohol and Drug Abuse Patient Records regulations: The Federal rules restrict any use of the information to criminally investigate or prosecute any alcohol or drug abuse patient.[facility]In the event this information is protected by the Federal Confidentiality of Alcohol and Drug Abuse Patient Records regulations: The Federal rules restrict any use of the information to criminally investigate or prosecute any alcohol or drug abuse patient.[facility] the event this information is protected by the Federal Confidentiality of Alcohol and Drug Abuse Patient Records regulations: The Federal rules restrict any use of the information to criminally investigate or prosecute any alcohol or drug abuse patient.[facility]In the event this information is protected by the Federal Confidentiality of Alcohol and Drug Abuse Patient Records regulations: The Federal rules restrict any use of the information to criminally investigate or prosecute any alcohol or drug abuse patient.[facility]In the event this information is protected by the Federal Confidentiality of Alcohol and Drug Abuse Patient Records regulations: The Federal rules restrict any use of the information to criminally investigate or prosecute any alcohol or drug abuse patient.[facility]In the event this information is protected by the Federal Confidentiality of Alcohol and Drug Abuse Patient Records regulations: The Federal rules restrict any use of the information to criminally investigate or prosecute any alcohol or drug abuse patient.[facility]In the event this information is protected by the Federal Confidentiality of Alcohol and Drug Abuse Patient Records regulations: The Federal rules restrict any use of the information to criminally investigate or prosecute any alcohol or drug abuse patient.[facility]In the event this information is protected by the Federal Confidentiality of Alcohol and Drug Abuse Patient Records regulations: The Federal rules restrict any use of the information to criminally investigate or prosecute any alcohol or drug abuse patient.[facility]In the event this information is protected by the Federal Confidentiality of Alcohol and Drug Abuse Patient Records regulations: The Federal rules restrict any use of the information to criminally investigate or prosecute any alcohol or drug abuse patient.[facility]In the event this information is protected by the Federal Confidentiality of Alcohol and Drug Abuse Patient Records regulations: The Federal rules restrict any use of the information to criminally investigate or prosecute any alcohol or drug abuse patient.[facility]In the event this information is protected by the Federal Confidentiality of Alcohol and Drug Abuse Patient Records regulations: The Federal rules restrict any use of the information to criminally investigate or prosecute any alcohol or drug abuse patient.[facility]In the event this information is protected by the Federal Confidentiality of Alcohol and Drug Abuse Patient Records regulations: The Federal rules restrict any use of the information to criminally investigate or prosecute any alcohol or drug abuse patient.[facility]In the event this information is protected by the Federal Confidentiality of Alcohol and Drug Abuse Patient Records regulations: The Federal rules restrict any use of the information to criminally investigate or prosecute any alcohol or drug abuse patient.[facility]In the event this information is protected by the Federal Confidentiality of Alcohol and Drug Abuse Patient Records regulations: The Federal rules restrict any use of the information to criminally investigate or prosecute any alcohol or drug abuse patient.[facility]In the event this information is protected by the Federal Confidentiality of Alcohol and Drug Abuse Patient Records regulations: The Federal rules restrict any use of the information to criminally investigate or prosecute any alcohol or drug abuse patient.[facility]In the event this information is protected by the Federal Confidentiality of Alcohol and Drug Abuse Patient Records regulations: The Federal rules restrict any use of the information to criminally investigate or prosecute any alcohol or drug abuse patient.[facility]In the event this information is protected by the Federal Confidentiality of Alcohol and Drug Abuse Patient Records regulations: The Federal rules restrict any use of the information to criminally investigate or prosecute any alcohol or drug abuse patient.[facility]In the event this information is protected by the Federal Confidentiality of Alcohol and Drug Abuse Patient Records regulations: The Federal rules restrict any use of the information to criminally investigate or prosecute any alcohol or drug abuse patient.[facility]In the event this information is protected by the Federal Confidentiality of Alcohol and Drug Abuse Patient Records regulations: The Federal rules restrict any use of the information to criminally investigate or prosecute any alcohol or drug abuse patient.[facility]In the event this information is protected by the Federal Confidentiality of Alcohol and Drug Abuse Patient Records regulations: The Federal rules restrict any use of the information to criminally investigate or prosecute any alcohol or drug abuse patient.[facility]In the event this information is protected by the Federal Confidentiality of Alcohol and Drug Abuse Patient Records regulations: The Federal rules restrict any use of the information to criminally investigate or prosecute any alcohol or drug abuse patient.[facility]In the event this information is protected by the Federal Confidentiality of Alcohol and Drug Abuse Patient Records regulations: The Federal rules restrict any use of the information to criminally investigate or prosecute any alcohol or drug abuse patient.[facility]In the event this information is protected by the Federal Confidentiality of Alcohol and Drug Abuse Patient Records regulations: The Federal rules restrict any use of the information to criminally investigate or prosecute any alcohol or drug abuse patient.[facility]In the event this information is protected by the Federal Confidentiality of Alcohol and Drug Abuse Patient Records regulations: The Federal rules restrict any use of the information to criminally investigate or prosecute any alcohol or drug abuse patient.[facility]In the event this information is protected by the Federal Confidentiality of Alcohol and Drug Abuse Patient Records regulations: The Federal rules restrict any use of the information to criminally investigate or prosecute any alcohol or drug abuse patient.[facility]In the event this information is protected by the Federal Confidentiality of Alcohol and Drug Abuse Patient Records regulations: The Federal rules restrict any use of the information to criminally investigate or prosecute any alcohol or drug abuse patient.[facility]In the event this information is protected by the Federal Confidentiality of Alcohol and Drug Abuse Patient Records regulations: The Federal rules restrict any use of the information to criminally investigate or prosecute any alcohol or drug abuse patient.[facility]In the event this information is protected by the Federal Confidentiality of Alcohol and Drug Abuse Patient Records regulations: The Federal rules restrict any use of the information to criminally investigate or prosecute any alcohol or drug abuse patient.[facility]In the event this information is protected by the Federal Confidentiality of Alcohol and Drug Abuse Patient Records regulations: The Federal rules restrict any use of the information to criminally investigate or prosecute any alcohol or drug abuse patient.[facility]In the event this information is protected by the Federal Confidentiality of Alcohol and Drug Abuse Patient Records regulations: The Federal rules restrict any use of the information to criminally investigate or prosecute any alcohol or drug abuse patient.[facility]In the event this information is protected by the Federal Confidentiality of Alcohol and Drug Abuse Patient Records regulations: The Federal rules restrict any use of the information to criminally investigate or prosecute any alcohol or drug abuse patient.[facility]In the event this information is protected by the Federal Confidentiality of Alcohol and Drug Abuse Patient Records regulations: The Federal rules restrict any use of the information to criminally investigate or prosecute any alcohol or drug abuse patient.[facility]In the event this information is protected by the Federal Confidentiality of Alcohol and Drug Abuse Patient Records regulations: The Federal rules restrict any use of the information to criminally investigate or prosecute any alcohol or drug abuse patient.[facility]In the event this information is protected by the Federal Confidentiality of Alcohol and Drug Abuse Patient Records regulations: The Federal rules restrict any use of the information to criminally investigate or prosecute any alcohol or drug abuse patient.[facility]In the event this information is protected by the Federal Confidentiality of Alcohol and Drug Abuse Patient Records regulations: The Federal rules restrict any use of the information to criminally investigate or prosecute any alcohol or drug abuse patient.[facility]In the event this information is protected by the Federal Confidentiality of Alcohol and Drug Abuse Patient Records regulations: The Federal rules restrict any use of the information to criminally investigate or prosecute any alcohol or drug abuse patient.[facility]In the event this information is protected by the Federal Confidentiality of Alcohol and Drug Abuse Patient Records regulations: The Federal rules restrict any use of the information to criminally investigate or prosecute any alcohol or drug abuse patient.[facility]In the event this information is protected by the Federal Confidentiality of Alcohol and Drug Abuse Patient Records regulations: The Federal rules restrict any use of the information to criminally investigate or prosecute any alcohol or drug abuse patient.[facility]In the event this information is protected by the Federal Confidentiality of Alcohol and Drug Abuse Patient Records regulations: The Federal rules restrict any use of the information to criminally investigate or prosecute any alcohol or drug abuse patient.[facility]In the event this information is protected by the Federal Confidentiality of Alcohol and Drug Abuse Patient Records regulations: The Federal rules restrict any use of the information to criminally investigate or prosecute any alcohol or drug abuse patient.[facility]In the event this information is protected by the Federal Confidentiality of Alcohol and Drug Abuse Patient Records regulations: The Federal rules restrict any use of the information to criminally investigate or prosecute any alcohol or drug abuse patient.[facility]In the event this information is protected by the Federal Confidentiality of Alcohol and Drug Abuse Patient Records regulations: The Federal rules restrict any use of the information to criminally investigate or prosecute any alcohol or drug abuse patient.[facility]In the event this information is protected by the Federal Confidentiality of Alcohol and Drug Abuse Patient Records regulations: The Federal rules restrict any use of the information to criminally investigate or prosecute any alcohol or drug abuse patient.[facility]In the event this information is protected by the Federal Confidentiality of Alcohol and Drug Abuse Patient Records regulations: The Federal rules restrict any use of the information to criminally investigate or prosecute any alcohol or drug abuse patient.[facility]In the event this information is protected by the Federal Confidentiality of Alcohol and Drug Abuse Patient Records regulations: The Federal rules restrict any use of the information to criminally investigate or prosecute any alcohol or drug abuse patient.[facility]In the event this information is protected by the Federal Confidentiality of Alcohol and Drug Abuse Patient Records regulations: The Federal rules restrict any use of the information to criminally investigate or prosecute any alcohol or drug abuse patient.[facility]In the event this information is protected by the Federal Confidentiality of Alcohol and Drug Abuse Patient Records regulations: The Federal rules restrict any use of the information to criminally investigate or prosecute any alcohol or drug abuse patient.[facility]In the event this information is protected by the Federal Confidentiality of Alcohol and Drug Abuse Patient Records regulations: The Federal rules restrict any use of the information to criminally investigate or prosecute any alcohol or drug abuse patient.[facility]In the event this information is protected by the Federal Confidentiality of Alcohol and Drug Abuse Patient Records regulations: The Federal rules restrict any use of the information to criminally investigate or prosecute any alcohol or drug abuse patient.[facility]In the event this information is protected by the Federal Confidentiality of Alcohol and Drug Abuse Patient Records regulations: The Federal rules restrict any use of the information to criminally investigate or prosecute any alcohol or drug abuse patient.[facility]In the event this information is protected by the Federal Confidentiality of Alcohol and Drug Abuse Patient Records regulations: The Federal rules restrict any use of the information to criminally investigate or prosecute any alcohol or drug abuse patient.[facility]In the event this information is protected by the Federal Confidentiality of Alcohol and Drug Abuse Patient Records regulations: The Federal rules restrict any use of the information to criminally investigate or prosecute any alcohol or drug abuse patient.[facility] the event this information is protected by the Federal Confidentiality of Alcohol and Drug Abuse Patient Records regulations: The Federal rules restrict any use of the information to criminally investigate or prosecute any alcohol or drug abuse patient.[facility]In the event this information is protected by the Federal Confidentiality of Alcohol and Drug Abuse Patient Records regulations: The Federal rules restrict any use of the information to criminally investigate or prosecute any alcohol or drug abuse patient.[facility]In the event this information is protected by the Federal Confidentiality of Alcohol and Drug Abuse Patient Records regulations: The Federal rules restrict any use of the information to criminally investigate or prosecute any alcohol or drug abuse patient.[facility]In the event this information is protected by the Federal Confidentiality of Alcohol and Drug Abuse Patient Records regulations: The Federal rules restrict any use of the information to criminally investigate or prosecute any alcohol or drug abuse patient.[facility]In the event this information is protected by the Federal Confidentiality of Alcohol and Drug Abuse Patient Records regulations: The Federal rules restrict any use of the information to criminally investigate or prosecute any alcohol or drug abuse patient.[facility]In the event this information is protected by the Federal Confidentiality of Alcohol and Drug Abuse Patient Records regulations: The Federal rules restrict any use of the information to criminally investigate or prosecute any alcohol or drug abuse patient.[facility]In the event this information is protected by the Federal Confidentiality of Alcohol and Drug Abuse Patient Records regulations: The Federal rules restrict any use of the information to criminally investigate or prosecute any alcohol or drug abuse patient.[facility]In the event this information is protected by the Federal Confidentiality of Alcohol and Drug Abuse Patient Records regulations: The Federal rules restrict any use of the information to criminally investigate or prosecute any alcohol or drug abuse patient.[facility]In the event this information is protected by the Federal Confidentiality of Alcohol and Drug Abuse Patient Records regulations: The Federal rules restrict any use of the information to criminally investigate or prosecute any alcohol or drug abuse patient.[facility]In the event this information is protected by the Federal Confidentiality of Alcohol and Drug Abuse Patient Records regulations: The Federal rules restrict any use of the information to criminally investigate or prosecute any alcohol or drug abuse patient.[facility]In the event this information is protected by the Federal Confidentiality of Alcohol and Drug Abuse Patient Records regulations: The Federal rules restrict any use of the information to criminally investigate or prosecute any alcohol or drug abuse patient.[facility]In the event this information is protected by the Federal Confidentiality of Alcohol and Drug Abuse Patient Records regulations: The Federal rules restrict any use of the information to criminally investigate or prosecute any alcohol or drug abuse patient.[facility]In the event this information is protected by the Federal Confidentiality of Alcohol and Drug Abuse Patient Records regulations: The Federal rules restrict any use of the information to criminally investigate or prosecute any alcohol or drug abuse patient.[facility]In the event this information is protected by the Federal Confidentiality of Alcohol and Drug Abuse Patient Records regulations: The Federal rules restrict any use of the information to criminally investigate or prosecute any alcohol or drug abuse patient.[facility]In the event this information is protected by the Federal Confidentiality of Alcohol and Drug Abuse Patient Records regulations: The Federal rules restrict any use of the information to criminally investigate or prosecute any alcohol or drug abuse patient.[facility]In the event this information is protected by the Federal Confidentiality of Alcohol and Drug Abuse Patient Records regulations: The Federal rules restrict any use of the information to criminally investigate or prosecute any alcohol or drug abuse patient.[facility]In the event this information is protected by the Federal Confidentiality of Alcohol and Drug Abuse Patient Records regulations: The Federal rules restrict any use of the information to criminally investigate or prosecute any alcohol or drug abuse patient.[facility]In the event this information is protected by the Federal Confidentiality of Alcohol and Drug Abuse Patient Records regulations: The Federal rules restrict any use of the information to criminally investigate or prosecute any alcohol or drug abuse patient.[facility]In the event this information is protected by the Federal Confidentiality of Alcohol and Drug Abuse Patient Records regulations: The Federal rules restrict any use of the information to criminally investigate or prosecute any alcohol or drug abuse patient.[facility]In the event this information is protected by the Federal Confidentiality of Alcohol and Drug Abuse Patient Records regulations: The Federal rules restrict any use of the information to criminally investigate or prosecute any alcohol or drug abuse patient.[facility]In the event this information is protected by the Federal Confidentiality of Alcohol and Drug Abuse Patient Records regulations: The Federal rules restrict any use of the information to criminally investigate or prosecute any alcohol or drug abuse patient.[facility]In the event this information is protected by the Federal Confidentiality of Alcohol and Drug Abuse Patient Records regulations: The Federal rules restrict any use of the information to criminally investigate or prosecute any alcohol or drug abuse patient.[facility]In the event this information is protected by the Federal Confidentiality of Alcohol and Drug Abuse Patient Records regulations: The Federal rules restrict any use of the information to criminally investigate or prosecute any alcohol or drug abuse patient.[facility]In the event this information is protected by the Federal Confidentiality of Alcohol and Drug Abuse Patient Records regulations: The Federal rules restrict any use of the information to criminally investigate or prosecute any alcohol or drug abuse patient.[facility]In the event this information is protected by the Federal Confidentiality of Alcohol and Drug Abuse Patient Records regulations: The Federal rules restrict any use of the information to criminally investigate or prosecute any alcohol or drug abuse patient.[facility]In the event this information is protected by the Federal Confidentiality of Alcohol and Drug Abuse Patient Records regulations: The Federal rules restrict any use of the information to criminally investigate or prosecute any alcohol or drug abuse patient.[facility]In the event this information is protected by the Federal Confidentiality of Alcohol and Drug Abuse Patient Records regulations: The Federal rules restrict any use of the information to criminally investigate or prosecute any alcohol or drug abuse patient.[facility]In the event this information is protected by the Federal Confidentiality of Alcohol and Drug Abuse Patient Records regulations: The Federal rules restrict any use of the information to criminally investigate or prosecute any alcohol or drug abuse patient.[facility]In the event this information is protected by the Federal Confidentiality of Alcohol and Drug Abuse Patient Records regulations: The Federal rules restrict any use of the information to criminally investigate or prosecute any alcohol or drug abuse patient.[facility]In the event this information is protected by the Federal Confidentiality of Alcohol and Drug Abuse Patient Records regulations: The Federal rules restrict any use of the information to criminally investigate or prosecute any alcohol or drug abuse patient.[facility]In the event this information is protected by the Federal Confidentiality of Alcohol and Drug Abuse Patient Records regulations: The Federal rules restrict any use of the information to criminally investigate or prosecute any alcohol or drug abuse patient.[facility]In the event this information is protected by the Federal Confidentiality of Alcohol and Drug Abuse Patient Records regulations: The Federal rules restrict any use of the information to criminally investigate or prosecute any alcohol or drug abuse patient.[facility]In the event this information is protected by the Federal Confidentiality of Alcohol and Drug Abuse Patient Records regulations: The Federal rules restrict any use of the information to criminally investigate or prosecute any alcohol or drug abuse patient.[facility]In the event this information is protected by the Federal Confidentiality of Alcohol and Drug Abuse Patient Records regulations: The Federal rules restrict any use of the information to criminally investigate or prosecute any alcohol or drug abuse patient.[facility]In the event this information is protected by the Federal Confidentiality of Alcohol and Drug Abuse Patient Records regulations: The Federal rules restrict any use of the information to criminally investigate or prosecute any alcohol or drug abuse patient.[facility]In the event this information is protected by the Federal Confidentiality of Alcohol and Drug Abuse Patient Records regulations: The Federal rules restrict any use of the information to criminally investigate or prosecute any alcohol or drug abuse patient.[facility]In the event this information is protected by the Federal Confidentiality of Alcohol and Drug Abuse Patient Records regulations: The Federal rules restrict any use of the information to criminally investigate or prosecute any alcohol or drug abuse patient.[facility]In the event this information is protected by the Federal Confidentiality of Alcohol and Drug Abuse Patient Records regulations: The Federal rules restrict any use of the information to criminally investigate or prosecute any alcohol or drug abuse patient.[facility]In the event this information is protected by the Federal Confidentiality of Alcohol and Drug Abuse Patient Records regulations: The Federal rules restrict any use of the information to criminally investigate or prosecute any alcohol or drug abuse patient.[facility]In the event this information is protected by the Federal Confidentiality of Alcohol and Drug Abuse Patient Records regulations: The Federal rules restrict any use of the information to criminally investigate or prosecute any alcohol or drug abuse patient.[facility]In the event this information is protected by the Federal Confidentiality of Alcohol and Drug Abuse Patient Records regulations: The Federal rules restrict any use of the information to criminally investigate or prosecute any alcohol or drug abuse patient.[facility]In the event this information is protected by the Federal Confidentiality of Alcohol and Drug Abuse Patient Records regulations: The Federal rules restrict any use of the information to criminally investigate or prosecute any alcohol or drug abuse patient.[facility]In the event this information is protected by the Federal Confidentiality of Alcohol and Drug Abuse Patient Records regulations: The Federal rules restrict any use of the information to criminally investigate or prosecute any alcohol or drug abuse patient.[facility]In the event this information is protected by the Federal Confidentiality of Alcohol and Drug Abuse Patient Records regulations: The Federal rules restrict any use of the information to criminally investigate or prosecute any alcohol or drug abuse patient.[facility]In the event this information is protected by the Federal Confidentiality of Alcohol and Drug Abuse Patient Records regulations: The Federal rules restrict any use of the information to criminally investigate or prosecute any alcohol or drug abuse patient.[facility]In the event this information is protected by the Federal Confidentiality of Alcohol and Drug Abuse Patient Records regulations: The Federal rules restrict any use of the information to criminally investigate or prosecute any alcohol or drug abuse patient.[facility]In the event this information is protected by the Federal Confidentiality of Alcohol and Drug Abuse Patient Records regulations: The Federal rules restrict any use of the information to criminally investigate or prosecute any alcohol or drug abuse patient.[facility]In the event this information is protected by the Federal Confidentiality of Alcohol and Drug Abuse Patient Records regulations: The Federal rules restrict any use of the information to criminally investigate or prosecute any alcohol or drug abuse patient.[facility]In the event this information is protected by the Federal Confidentiality of Alcohol and Drug Abuse Patient Records regulations: The Federal rules restrict any use of the information to criminally investigate or prosecute any alcohol or drug abuse patient.[facility] HospitalIn the event this information is protected by the Federal Confidentiality of Alcohol and Drug Abuse Patient Records regulations: The Federal rules restrict any use of the information to criminally investigate or prosecute any alcohol or drug abuse patient.[facility] the event this information is protected by the Federal Confidentiality of Alcohol and Drug Abuse Patient Records regulations: The Federal rules restrict any use of the information to criminally investigate or prosecute any alcohol or drug abuse patient.[facility]In the event this information is protected by the Federal Confidentiality of Alcohol and Drug Abuse Patient Records regulations: The Federal rules restrict any use of the information to criminally investigate or prosecute any alcohol or drug abuse patient.[facility] HospitalIn the event this information is protected by the Federal Confidentiality of Alcohol and Drug Abuse Patient Records regulations: The Federal rules restrict any use of the information to criminally investigate or prosecute any alcohol or drug abuse patient.[facility] HospitalIn the event this information is protected by the Federal Confidentiality of Alcohol and Drug Abuse Patient Records regulations: The Federal rules restrict any use of the information to criminally investigate or prosecute any alcohol or drug abuse patient.[facility] HospitalIn the event this information is protected by the Federal Confidentiality of Alcohol and Drug Abuse Patient Records regulations: The Federal rules restrict any use of the information to criminally investigate or prosecute any alcohol or drug abuse patient.[facility] HospitalIn the event this information is protected by the Federal Confidentiality of Alcohol and Drug Abuse Patient Records regulations: The Federal rules restrict any use of the information to criminally investigate or prosecute any alcohol or drug abuse patient.[facility] HospitalIn the event this information is protected by the Federal Confidentiality of Alcohol and Drug Abuse Patient Records regulations: The Federal rules restrict any use of the information to criminally investigate or prosecute any alcohol or drug abuse patient.[facility] HospitalIn the event this information is protected by the Federal Confidentiality of Alcohol and Drug Abuse Patient Records regulations: The Federal rules restrict any use of the information to criminally investigate or prosecute any alcohol or drug abuse patient.[facility] HospitalIn the event this information is protected by the Federal Confidentiality of Alcohol and Drug Abuse Patient Records regulations: The Federal rules restrict any use of the information to criminally investigate or prosecute any alcohol or drug abuse patient.[facility] HospitalIn the event this information is protected by the Federal Confidentiality of Alcohol and Drug Abuse Patient Records regulations: The Federal rules restrict any use of the information to criminally investigate or prosecute any alcohol or drug abuse patient.[facility] HospitalIn the event this information is protected by the Federal Confidentiality of Alcohol and Drug Abuse Patient Records regulations: The Federal rules restrict any use of the information to criminally investigate or prosecute any alcohol or drug abuse patient.[facility] HospitalIn the event this information is protected by the Federal Confidentiality of Alcohol and Drug Abuse Patient Records regulations: The Federal rules restrict any use of the information to criminally investigate or prosecute any alcohol or drug abuse patient.[facility] HospitalIn the event this information is protected by the Federal Confidentiality of Alcohol and Drug Abuse Patient Records regulations: The Federal rules restrict any use of the information to criminally investigate or prosecute any alcohol or drug abuse patient.[facility] HospitalIn the event this information is protected by the Federal Confidentiality of Alcohol and Drug Abuse Patient Records regulations: The Federal rules restrict any use of the information to criminally investigate or prosecute any alcohol or drug abuse patient.[facility] HospitalIn the event this information is protected by the Federal Confidentiality of Alcohol and Drug Abuse Patient Records regulations: The Federal rules restrict any use of the information to criminally investigate or prosecute any alcohol or drug abuse patient.[facility] HospitalIn the event this information is protected by the Federal Confidentiality of Alcohol and Drug Abuse Patient Records regulations: The Federal rules restrict any use of the information to criminally investigate or prosecute any alcohol or drug abuse patient.[facility] HospitalIn the event this information is protected by the Federal Confidentiality of Alcohol and Drug Abuse Patient Records regulations: The Federal rules restrict any use of the information to criminally investigate or prosecute any alcohol or drug abuse patient.[facility] HospitalIn the event this information is protected by the Federal Confidentiality of Alcohol and Drug Abuse Patient Records regulations: The Federal rules restrict any use of the information to criminally investigate or prosecute any alcohol or drug abuse patient.[facility] HospitalIn the event this information is protected by the Federal Confidentiality of Alcohol and Drug Abuse Patient Records regulations: The Federal rules restrict any use of the information to criminally investigate or prosecute any alcohol or drug abuse patient.[facility] HospitalIn the event this information is protected by the Federal Confidentiality of Alcohol and Drug Abuse Patient Records regulations: The Federal rules restrict any use of the information to criminally investigate or prosecute any alcohol or drug abuse patient.[facility] HospitalIn the event this information is protected by the Federal Confidentiality of Alcohol and Drug Abuse Patient Records regulations: The Federal rules restrict any use of the information to criminally investigate or prosecute any alcohol or drug abuse patient.[facility] HospitalIn the event this information is protected by the Federal Confidentiality of Alcohol and Drug Abuse Patient Records regulations: The Federal rules restrict any use of the information to criminally investigate or prosecute any alcohol or drug abuse patient.[facility] HospitalIn the event this information is protected by the Federal Confidentiality of Alcohol and Drug Abuse Patient Records regulations: The Federal rules restrict any use of the information to criminally investigate or prosecute any alcohol or drug abuse patient.[facility] HospitalIn the event this information is protected by the Federal Confidentiality of Alcohol and Drug Abuse Patient Records regulations: The Federal rules restrict any use of the information to criminally investigate or prosecute any alcohol or drug abuse patient.[facility] HospitalIn the event this information is protected by the Federal Confidentiality of Alcohol and Drug Abuse Patient Records regulations: The Federal rules restrict any use of the information to criminally investigate or prosecute any alcohol or drug abuse patient.[facility] HospitalIn the event this information is protected by the Federal Confidentiality of Alcohol and Drug Abuse Patient Records regulations: The Federal rules restrict any use of the information to criminally investigate or prosecute any alcohol or drug abuse patient.[facility] HospitalIn the event this information is protected by the Federal Confidentiality of Alcohol and Drug Abuse Patient Records regulations: The Federal rules restrict any use of the information to criminally investigate or prosecute any alcohol or drug abuse patient.[facility] HospitalIn the event this information is protected by the Federal Confidentiality of Alcohol and Drug Abuse Patient Records regulations: The Federal rules restrict any use of the information to criminally investigate or prosecute any alcohol or drug abuse patient.[facility] HospitalIn the event this information is protected by the Federal Confidentiality of Alcohol and Drug Abuse Patient Records regulations: The Federal rules restrict any use of the information to criminally investigate or prosecute any alcohol or drug abuse patient.[facility] HospitalIn the event this information is protected by the Federal Confidentiality of Alcohol and Drug Abuse Patient Records regulations: The Federal rules restrict any use of the information to criminally investigate or prosecute any alcohol or drug abuse patient.[facility] HospitalIn the event this information is protected by the Federal Confidentiality of Alcohol and Drug Abuse Patient Records regulations: The Federal rules restrict any use of the information to criminally investigate or prosecute any alcohol or drug abuse patient.[facility] HospitalIn the event this information is protected by the Federal Confidentiality of Alcohol and Drug Abuse Patient Records regulations: The Federal rules restrict any use of the information to criminally investigate or prosecute any alcohol or drug abuse patient.[facility] HospitalIn the event this information is protected by the Federal Confidentiality of Alcohol and Drug Abuse Patient Records regulations: The Federal rules restrict any use of the information to criminally investigate or prosecute any alcohol or drug abuse patient.[facility] HospitalIn the event this information is protected by the Federal Confidentiality of Alcohol and Drug Abuse Patient Records regulations: The Federal rules restrict any use of the information to criminally investigate or prosecute any alcohol or drug abuse patient.[facility] HospitalIn the event this information is protected by the Federal Confidentiality of Alcohol and Drug Abuse Patient Records regulations: The Federal rules restrict any use of the information to criminally investigate or prosecute any alcohol or drug abuse patient.[facility] HospitalIn the event this information is protected by the Federal Confidentiality of Alcohol and Drug Abuse Patient Records regulations: The Federal rules restrict any use of the information to criminally investigate or prosecute any alcohol or drug abuse patient.[facility] HospitalIn the event this information is protected by the Federal Confidentiality of Alcohol and Drug Abuse Patient Records regulations: The Federal rules restrict any use of the information to criminally investigate or prosecute any alcohol or drug abuse patient.[facility] HospitalIn the event this information is protected by the Federal Confidentiality of Alcohol and Drug Abuse Patient Records regulations: The Federal rules restrict any use of the information to criminally investigate or prosecute any alcohol or drug abuse patient.[facility] HospitalIn the event this information is protected by the Federal Confidentiality of Alcohol and Drug Abuse Patient Records regulations: The Federal rules restrict any use of the information to criminally investigate or prosecute any alcohol or drug abuse patient.[facility] HospitalIn the event this information is protected by the Federal Confidentiality of Alcohol and Drug Abuse Patient Records regulations: The Federal rules restrict any use of the information to criminally investigate or prosecute any alcohol or drug abuse patient.[facility] HospitalIn the event this information is protected by the Federal Confidentiality of Alcohol and Drug Abuse Patient Records regulations: The Federal rules restrict any use of the information to criminally investigate or prosecute any alcohol or drug abuse patient.[facility] HospitalIn the event this information is protected by the Federal Confidentiality of Alcohol and Drug Abuse Patient Records regulations: The Federal rules restrict any use of the information to criminally investigate or prosecute any alcohol or drug abuse patient.[facility] HospitalIn the event this information is protected by the Federal Confidentiality of Alcohol and Drug Abuse Patient Records regulations: The Federal rules restrict any use of the information to criminally investigate or prosecute any alcohol or drug abuse patient.[facility] HospitalIn the event this information is protected by the Federal Confidentiality of Alcohol and Drug Abuse Patient Records regulations: The Federal rules restrict any use of the information to criminally investigate or prosecute any alcohol or drug abuse patient.[facility] HospitalIn the event this information is protected by the Federal Confidentiality of Alcohol and Drug Abuse Patient Records regulations: The Federal rules restrict any use of the information to criminally investigate or prosecute any alcohol or drug abuse patient.[facility] Reason for Visit (unrecogniz ed section and content) Reason Comments Botox Injection Specialty Diagnoses / Procedures Referred By Contac t Referred To Contact Neurology / HEADACHE Diagnoses Chronic migraine without aura, intractable, without status migrainosus Procedures BOTULINUM TOXIN A PER 1 UNIT Botox 200 units every 90 days Sunil Owen, DO [facility] [address] [place] [address] Phone: tel: fax: Sunil Owen, DO [facility] [address] [place] [address] Phone: tel: fax: Referral ID Status Reason Start Date Expiration Date V isits Requested Visits Authorized [id number] Authorized 07/05/2025 01/01/2026 2 2 Reason Comments Physical Therapy Specialty Diagnoses / Procedures Referred By Contac t Referred To Contact Physical Therapy / PHYSICAL THERAPY Diagnoses pt Procedures EST RS PT ORTH MSK Beatriz Melissa, PT Beatriz Melissa, PT Referral ID Status Reason Start Date Expiration Date V isits Requested Visits Authorized [id number] Authorized 12/01/2024 11/30/2025 30 30 Specialty Diagnoses / Procedures Referred By Contact Referred To Contact [facility] Diagnoses Tear of right acetabular labrum, subsequent encounter Procedures CONSULT TO PHYSICAL THERAPY PHYSICAL THERAPY EVALUATION HIGH COMPLEX 45 MINS Dian Sierra, PAQuninC [address] [place] [address] [facility] [place] [address] [place] [address] Referral ID Status Reason Start Date Expiration Date Visits Requested Visits Authorized [id number] Authorized Auto-Generat ed Referral 12/01/2023 11/30/2024 30 30 Reason Comments PT Eval Reason Comments PT Discharge Reason Comments PT Progress Note Specialty Diagnoses / Procedures Referred By Contac t Referred To Contact PHYSICAL THERAPY Diagnoses hip pain Procedures hip pain Emre De Leon MD [address] [place] [address] Pt [facility] [address] [place] [address] Referral ID Status Reason Start Date Expiration Date V isits Requested Visits Authorized [id number] Authorized 12/01/2022 11/30/2023 30 30 Reason Comments Non-Chemotherapy Treatment Specialty Diagnoses / Procedures Referred By Contac t Referred To Contact Diagnoses Inflammatory arthritis Procedures GOLIMUMAB FOR IV USE 1MG Wsiam Chung PA-C [address] [place] [address] Dirk [facility] [address] [place] [address] Referral ID Status Reason Start Date Expiration Date V isits Requested Visits Authorized [id number] Authorized 07/05/2022 11/30/2023 99 99 Reason Comments Infusion Referral ID Status Reason Start Date Expiration Date V isits Requested Visits Authorized [id number] Authorized 07/05/2022 11/30/2022 99 99 Reason Comments Follow Up Specialty Diagnoses / Procedures Referred By Contac t Referred To Contact Diagnoses Chronic migraine without aura, with intractable migraine, so stated, with status migrainosus Procedures PROVIDER ORDERED FOLLOW UP OFFICE/OUTPATIENT [facility] 60-74 MINUTES Sue Concepcion MD [address] [place] [address] Sue Concepcion MD [address] [place] [address] Referral ID Status Reason Start Date Expiration Date V isits Requested Visits Authorized [id number] Closed PCP Requested Referral 06/14/2022 09/05/2022 1 1 Specialty Diagnoses / Procedures Referred By Contac t Referred To Contact Physical Therapy / PHYSICAL THERAPY Diagnoses neck pain Procedures EST RS PT ORTH Beatriz Reyna, PT [address] [place] [address] Beatriz Melissa PT Referral ID Status Reason Start Date Expiration Date V isits Requested Visits Authorized [id number] Authorized 12/01/2021 11/30/2022 20 20 Reason Comments Arthritis Reason Comments Patient Update Specialty Diagnoses / Procedures Referred By Contac t Referred To Contact Physical Therapy / PHYSICAL THERAPY Diagnoses neck pain Procedures EST RS PT ORTH Beatriz Reyna, PT [address] [place] [address] Beatriz Melissa, PT [address] [place] [address] Reason Onset Date Comments SPP Inflammatory Conditions - Follow-up 03/04/20 22 Humira [place] renewal Insurance Authorization 03/04/2022 PA submi tted Reason Onset Date Comments SPP Inflammatory Conditions - Follow-up 03/04/20 Humira Renewal Insurance Authorization 03/04/2022 PA Appro ciro Reason Onset Date Comments SPP Inflammatory Conditions - Treatment Referral 04/03/2022 Enbrel SureClick Insurance Authorization 04/03/2022 PA submi tted Reason Onset Date Comments Refill Request 04/04/2022 Reason Comments Neck Pain Injection Followup Specialty Diagnoses / Procedures Referred By Contac t Referred To Contact Diagnoses Stress Procedures MIND/BODY HOLISTIC PSYCHOTHERAPY NEW PATIENT VISIT LEVEL 5 Nancy Del Valle APRN.MILLED RICE BROKER [address] [facility] [place] [address] Referral ID Status Reason Start Date Expiration Date Visits Requested Visits Authorized [id number] Authorized PCP Requested Referral 06/29/2021 06/29/2022 99 99 Reason Comments Refill Request Reason Comments Adipex Reason Comments Insurance Authorization AJOVY (fremanezu mab-vfrm) injection 225MG/1.5ML auto-injectors Reason Onset Date Comments SPP Inflammatory Conditions - Medication Refill 05/17/2022 Enbrel SureClick Reason Comments Established Patient Reason Comments Medication Problem PRIOR AUTH Reason Comments Follow Up Arthritis Inflammatory Arthritis Reason Comments Virtual Visit Intake Reason Onset Date Comments SPP Inflammatory Conditions - Medication Refill 06/10/2022 Enbrel SureClick Reason Onset Date Comments Hyperlipidemia 06/13/2022 Reason Comments Nerve Block Reason Comments PT Re-eval Reason Comments Hyperlipidemia Reason Onset Date Comments SPP Inflammatory Conditions - Follow-up 07/08/20 Enbrel SureClick Insurance Authorization 07/08/2022 PA Renew al submission pending Reason Onset Date Comments SPP Inflammatory Conditions - Discontinuation Enbrel SureClick Reason Comments Follow Up Reason Comments Insurance Authorization Reyvow 100mg Reason Comments Routine eye exam Reason Comments Pain Specialty Diagnoses / Procedures Referred By Contac t Referred To Contact Orthopedics Diagnoses Right hip impingement syndrome Procedures CONSULT TO ORTHOPAEDICS OFFICE/OUTPATIENT NEW HIGH MDM 60-74 MINUTES Wisam Chung PA-C [address] [place] [address] Referral ID Status Reason Start Date Expiration Date V isits Requested Visits Authorized [id number] Closed PCP Requested Referral 07/23/2022 07/23/2023 1 1 Reason Comments Patient Question Reason Comments Obesity Reason Comments Insurance Authorization [id number] 0.25 mg or 0.5 mg(2 mg/1.5 mL) pen Reason Onset Date Comments Refill Request 10/10/2022 Reason Comments Medication Update Refill Auth Consent Reason Comments Orders Reason Comments Medical Weight Management Reason Comments Medical Weight Management Reason Onset Date Comments Care Coordination 11/26/2022 Reason Onset Date Comments Med Change Request Refill Request 11/26/2022 Reason Comments Appointment Cancelled Reason Comments Medical Nutrition Therapy PCOS and Weigh t Management Specialty Diagnoses / Procedures Referred By Contac t Referred To Contact Diagnoses Dyslipidemia PCOS (polycystic ovarian syndrome) Impaired fasting blood sugar Obesity, Class I, BMI 30-34.9 Procedures ENDOCRINOLOGY DIETITIAN VISIT (MNT) OFFICE/OUTPATIENT [facility] 60-74 MINUTES Lani Xavier MD [address] [place] [address] Referral ID Status Reason Start Date Expiration Date V isits Requested Visits Authorized [id number] Closed PCP Requested Referral 10/23/2022 10/23/2023 1 1 Reason Comments F/U 1 month Scheduled 4 week fol low up with Samm barreto RD at [facility] Reason Comments LMTCB Specialty Diagnoses / Procedures Referred By Contac t Referred To Contact Diagnoses Chronic migraine without aura, intractable, without status migrainosus Procedures PROVIDER ORDERED FOLLOW UP OFFICE/OUTPATIENT [facility] 60-[place] [address] [place] [address] Sue Concepcion MD [address] [place] [address] Referral ID Status Reason Start Date Expiration Date V isits Requested Visits Authorized [id number] Closed PCP Requested Referral 10/03/2022 01/01/2023 1 1 Reason Comments Appointment Reason Onset Date Comments SPP Inflammatory Conditions - Treatment Referral 02/24/2023 Simponi Insurance Authorization 02/24/2023 PA submi ssion pending Reason Onset Date Comments Refill Request 02/24/2023 Reason Comments Schedule Surgery Reason Comments Inflammatory Arthritis Reason Comments Medication Problem New Medication Reason Comments Orders Reason Onset Date Comments SPP Inflammatory Conditions - Medication Refill 04/02/2023 Simponi Reason Comments Med Change Request Reason Comments appointment question Reason Onset Date Comments Refill Request 05/01/2023 Reason Onset Date Comments Refill Request 05/20/2023 Reason Onset Date Comments SPP Inflammatory Conditions - Medication Refill 05/21/2023 Simponi Reason Comments Schedule Surgery Right hip arthroscop y - labral repair Reason Comments No Show Reason Comments Anesthesia Consult Right hip pain Reason Onset Date Comments SPP Inflammatory Conditions - Follow-up 06/12/20 Simponi Insurance Authorization 06/12/2023 PA Sangeeta al Submitted Reason Comments PT Re-eval Specialty Diagnoses / Procedures Referred By Contmarilee t Referred To Contact PHYSICAL THERAPY Diagnoses hip pain Procedures hip pain Emre De Leon MD [address] [place] [address] Pt [facility] [address] [place] [address] Reason Onset Date Comments Care Coordination 06/16/2023 Reason Comments Refill Request RPH Managed Refill Reason Onset Date Comments SPP Inflammatory Conditions - Medication Refill 07/18/2023 Simponi Reason Comments Migraine Reason Comments Referral Request Reason Comments Medication Problem valtrex Reason Comments Weight Check EHP weight check Reason Comments Post Op 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 Reason Comments Refill Request RPH Managed Reason Onset Date Comments SPP Inflammatory Conditions - Medication Refill 10/15/2023 Simponi Reason Onset Date Comments SPP Inflammatory Conditions - Medication Refill 11/10/2023 Simponi Specialty Diagnoses / Procedures Referred By Contac t Referred To Contact HEADACHE Diagnoses Chronic migraine without aura, intractable, without status migrainosus Procedures BOTULINUM TOXIN A PER 1 UNIT CHEMODERVATE FACIAL/TRIGEM/CERV MUSC MIGRAINE Botox 200 units every 12 weeks Sunil Owen, [address] [place] [address] Sunil Owen DO [address] [place] [address] Referral ID Status Reason Start Date Expiration Date V isits Requested Visits Authorized [id number] Authorized 08/12/2023 02/08/2024 4 4 Reason Onset Date Comments SPP Inflammatory Conditions - Follow-up 01/05/20 [employer] Insurance Authorization 01/05/2024 MIESHA Rutherford al submission pending Reason Onset Date Comments SPP Inflammatory Conditions - Medication Refill 01/21/2024 Simponi Reason Onset Date Comments SPP Inflammatory Conditions - Medication Refill 02/16/2024 Simponi Reason Comments Pelvic Pain Specialty Diagnoses / Procedures Referred By Contmarilee t Referred To Contact [facility] Diagnoses Pelvic pain in female Procedures PELVIC US WHI US PELVIC NONOBSTETRIC REAL-TIME IMAGE COMPLETE Elaine Velasco, JERRY.MILLED RICE BROKER [address] [place] [address] [facility] [address] [place] [address] Referral ID Status Reason Start Date Expiration Date V isits Requested Visits Authorized [id number] Closed Auto-Generate d Referral 03/01/2024 03/01/2025 1 1 Reason Onset Date Comments SPP Inflammatory Conditions - Medication Refill 03/12/2024 Simponi Reason Comments Refill Request Rp managed refills Reason Comments Insurance Authorization Diclofenac Potas sium 50 mg Pwpk Reason Onset Date Comments SPP Inflammatory Conditions - Medication Refill 04/12/2024 Simponi Reason Comments pacc reschedule Reason Onset Date Comments Care Coordination 06/07/2024 Reason Onset Date Comments SPP Inflammatory Conditions - Medication Refill 06/18/2024 Simponi - NCA 01/2025 Reason Comments Insurance Authorization MRI Denial Reason Onset Date Comments SPP Inflammatory Conditions - Medication Refill 07/13/2024 Simponi - NCA 01/2025 Reason Onset Date Comments Refill Request 07/21/2024 Reason Onset Date Comments Refill Request 07/22/2024 Reason Onset Date Comments SPP Inflammatory Conditions - Follow-up 08/04/20 [employer] Insurance Authorization 08/04/2024 MIESHA Rutherford al submitted Reason Onset Date Comments SPP Inflammatory Conditions - Medication Refill 08/12/2024 [employer] Specialty Diagnoses / Procedures Referred By Contac t Referred To Contact MR IMAGING Diagnoses Spinal stenosis of cervical region Radiculopathy, cervical region Procedures MRI CERVICAL SPINE WO IVCON MRI SPINAL CANAL CERVICAL W/O CONTRAST Adele Richmond, BEAUTY CULTURIST.[employer] [address] [place] [address] [place] [phone] Referral ID Status Reason Start Date Expiration Date V isits Requested Visits Authorized [id number] Closed Auto-Generate d Referral 08/11/2024 11/10/2024 1 1 Reason Comments Radio Gen RMP Specialty Diagnoses / Procedures Referred By Contac t Referred To Contact XR IMAGING Diagnoses Tear of right acetabular labrum, subsequent encounter Procedures XR HIP GENERAL 3V PELV/AP/LAT RIGHT RADEX HIP UNILATERAL WITH PELVIS 2-3 VIEWS Dian Sierra PA-C [address] [place] [address] Xr Imaging [place] [address] Referral ID Status Reason Start Date Expiration Date V isits Requested Visits Authorized [id number] Closed Auto-Generate d Referral 05/15/2023 06/13/2024 1 1 Reason Comments Results Cervical MRI Reason Comments Radiology MRI Specialty Diagnoses / Procedures Referred By Contac t Referred To Contact MR IMAGING Diagnoses Right hip impingement syndrome Procedures MRI HIP WO IVCON RT MRI ANY JT LOWER EXTREM W/O CONTRAST Dian Summers PA-C [address] [place] [address] [place] [phone] Referral ID Status Reason Start Date Expiration Date V isits Requested Visits Authorized [id number] Closed Auto-Generate d Referral 09/10/2022 12/20/2022 1 1 Specialty Diagnoses / Procedures Referred By Contac t Referred To Contact XR IMAGING Diagnoses Pain in right hip Procedures XR HIP GENERAL 3V PELV/AP/LAT RIGHT RADEX HIP UNILATERAL WITH PELVIS 2-3 VIEWS Dian Sierra PA-C [address] [place] [address] [facility] [address] Referral ID Status Reason Start Date Expiration Date V isits Requested Visits Authorized [id number] Closed Auto-Generate d Referral 07/29/2022 08/28/2023 1 1 Reason Onset Date Comments SPP Inflammatory Conditions - Treatment Referral 09/01/2024 [employer] Insurance Authorization 09/01/2024 MIESHA Submi ssion Pending Reason Comments Neck Pain Upper Extremity Pain Reason Onset Date Comments Refill Request 10/06/2024 Reason Comments Insurance Authorization Injection Proced ure Denial Reason Onset Date Comments Care Coordination 11/29/2024 Reason Comments Yearly Exam Reason Onset Date Comments SPP Inflammatory Conditions - Medication Refill 12/23/2024 [employer] Insurance Authorization 12/23/2024 MIESHA renew al approved Reason Comments Insurance Authorization ajovy Reason Comments Chronic Migraine Daily Headache Migraine Cervicalgia Specialty Diagnoses / Procedures Referred By Farheen taylor Referred To Contact MR IMAGING Diagnoses Thunderclap headache Procedures MRI BRAIN WO/W IVCON MRI BRAIN BRAIN STEM W/O W/CONTRAST MATERIAL David Kilgore, [address] [place] [address] [facility] [address] [place] [address] Referral ID Status Reason Start Date Expiration Date V isits Requested Visits Authorized [id number] Denied Auto-Generat ed Referral Patient Cleared - Admin/Chairm an/Director advise to proceed or did not respond 12/30/2024 03/30/2025 1 0 Reason Onset Date Comments SPP Inflammatory Conditions - Medication Refill 01/17/2025 O[facility] [employer] Reason Comments Insurance Authorization WAYNE OCAMPO Reason Comments Consult Specialty Diagnoses / Procedures Referred By Farheen t Referred To Contact Gastroenterology Diagnoses Gastroesophageal reflux disease, unspecified whether esophagitis present Procedures CONSULT TO GASTROENTEROLOGY OFFICE/OUTPATIENT [facility] 60 MINUTES Roxanna Nunes PA-C [address] [place] [address] Phone: tel: fax: Referral ID Status Reason Start Date Expiration Date V isits Requested Visits Authorized [id number] Closed PCP Requested Referral 12/28/2024 12/28/2025 1 1 Reason Onset Date Comments SPP Inflammatory Conditions - Medication Refill 02/08/2025 O[facility] [employer] Reason Onset Date Comments EMG 02/11/2025 Specialty Diagnoses / Procedures Referred By Farheen t Referred To Contact [facility] Diagnoses Numbness and tingling of both legs Paresthesia of both hands Procedures EMG(NEURO/NI) NERVE CONDUCTION STUDIES 9-10 STUDIES David Kilgore, DO [address] [place] [address] Phone: tel: fax: Neurology [address] [place] [address] Phone: tel: Referral ID Status Reason Start Date Expiration Date V isits Requested Visits Authorized [id number] Closed Auto-Generate d Referral 12/08/2024 12/08/2025 1 1 Reason Comments Yearly Exam Reason Onset Date Comments Refill Request 02/24/2025 Reason Onset Date Comments SPP Inflammatory Conditions - Medication Refill 03/03/2025 O[facility] [employer] Reason Comments Inflammatory Arthritis Reason Comments 03-16-2025 [facility] Reason Onset Date Comments SPP Inflammatory Conditions - Medication Refill 04/01/2025 Orencia [employer] Specialty Diagnoses / Procedures Referred By Farheen t Referred To Contact HEADACHE Diagnoses Chronic migraine without aura, intractable, without status migrainosus Procedures BOTULINUM TOXIN A PER 1 UNIT CHEMODERVATE FACIAL/TRIGEM/CERV MUSC MIGRAINE Botox 200 units every 90 days Sunil Owen, DO [address] [place] [address] Phone: tel: fax: Sunil Owen, DO [address] [place] [address] Phone: tel: fax: Referral ID Status Reason Start Date Expiration Date V isits Requested Visits Authorized [id number] Authorized 01/12/2025 07/11/2025 5 2 Reason Comments Medication Problem Reason Onset Date Comments SPP Inflammatory Conditions - Medication Refill 04/29/2025 O[facility] [employer] Reason Onset Date Comments SPP Inflammatory Conditions - Treatment Referral 05/18/2025 [employer] Insurance Authorization 05/18/2025 MIESHA jimenez ssion pending Reason Onset Date Comments Hyperlipidemia 05/24/2025 Reason Onset Date Comments SPP Inflammatory Conditions - Discontinuation O[facility]cia Reason Comments Neck Pain Follow Up No Show Reason Onset Date Comments SPP Inflammatory Conditions - Medication Refill 07/26/2025 [employer] (week 4 of loading dose) Reason Comments Neck Pain Care Teams (unrecognized sec tion and content) Nurse'S Aides Teacher Relationship Specialty Start Date End Date David Kilgore, DO [address] [place] [address] PCP - General Family Practice 06/15/20 Georgia Moore, RN [employer] Sales Rep 12/25/20 Leann Koo MD [address] [place] [address] Primary Staff Physician Cardiology 08/14/21 Nurse'S Aides Teacher Relationship Specialty Start Date End Date David Kilgore, DO [address] [place], [place] [id number] PCP - General Family Practice 06/15/20 Georgia Moore, RN [employer] Sales Rep 12/25/20 Leann Koo MD [address] [place] [address] Primary Staff Physician Cardiology 08/14/21 Nurse'S Aides Teacher Relationship Specialty Start Date End Date David Kilgore, DO [address] [place], [place] [id number] PCP - General Family Practice 06/15/20 Georgia Moore, RN [employer] Sales Rep 12/25/20 Leann Koo MD [address] [facility] [place] [address] Primary Staff Physician Cardiology 08/14/21 Nurse'S Aides Teacher Relationship Specialty Start Date End Date David Kilgore, DO [address] [place] [address] PCP - General Family Practice 06/15/20 Georgia Moore, RN [employer] Sales Rep 12/25/20 Leann Koo MD [address] [place], [place] [id number] Primary Staff Physician Cardiology 08/14/21 Nurse'S Aides Teacher Relationship Specialty Start Date End Date David Kilgore, DO [address] [place] [address] PCP - General Family Practice 06/15/20 Georgia Moore, RN [employer] Sales Rep 12/25/20 Leann Koo MD [address] [place] [address] Primary Staff Physician Cardiology 08/14/21 Nurse'S Aides Teacher Relationship Specialty Start Date End Date David Kilgore, DO [address] [place] [address] PCP - General Family Practice 06/15/20 Georgia Moore, RN [employer] Sales Rep 12/25/20 Leann Koo MD [address] [place], [place] [id number] Primary Staff Physician Cardiology 08/14/21 Nurse'S Aides Teacher Relationship Specialty Start Date End Date David Kilgore, DO [address] [place] [address] PCP - General Family Practice 06/15/20 Georgia Moore, RN [employer] Sales Rep 12/25/20 Leann Koo MD [address] [place] [address] Primary Staff Physician Cardiology 08/14/21 Nurse'S Aides Teacher Relationship Specialty Start Date End Date David Kilgore, DO [address] [place] [address] PCP - General Family Practice 06/15/20 Georgia Moore, RN [employer] Sales Rep 12/25/20 Leann Koo MD [address] [place] [address] Primary Staff Physician Cardiology 08/14/21 Nurse'S Aides Teacher Relationship Specialty Start Date End Date David Kilgore DO [address] [place] [address] PCP - General Family Practice 06/15/20 Georgia Moore, RN [employer] Sales Rep 12/25/20 Leann Koo MD [address] [place] [address] Primary Staff Physician Cardiology 08/14/21 Nurse'S Aides Teacher Relationship Specialty Start Date End Date David Kilgore DO [address] [place] [address] PCP - General Family Practice 06/15/20 Georgia Moore, RN [employer] Sales Rep 12/25/20 Leann Koo MD [address] [place] [address] Primary Staff Physician Cardiology 08/14/21 Nurse'S Aides Teacher Relationship Specialty Start Date End Date David Kilgore DO [address] [place] [address] PCP - General Family Practice 06/15/20 Georgia Moore, RN [employer] Sales Rep 12/25/20 Leann Koo MD [address] [place] [address] Primary Staff Physician Cardiology 08/14/21 Nurse'S Aides Teacher Relationship Specialty Start Date End Date David Kilgore DO [address] [place] [address] PCP - General Family Practice 06/15/20 Georgia Moore, RN [employer] Sales Rep 12/25/20 Leann Koo MD [address] [place] [address] Primary Staff Physician Cardiology 08/14/21 Nurse'S Aides Teacher Relationship Specialty Start Date End Date David Kilgore, DO [address] [place] [address] PCP - General Family Practice 06/15/20 Georgia Moore, RN [employer] Sales Rep 12/25/20 Leann Koo MD [address] [place] [address] Primary Staff Physician Cardiology 08/14/21 Nurse'S Aides Teacher Relationship Specialty Start Date End Date David Kilgore DO [address] [place] [address] PCP - General Family Practice 06/15/20 Georgia Moore, RN [employer] Sales Rep 12/25/20 Leann Koo MD [address] [place] [address] Primary Staff Physician Cardiology 08/14/21 Nurse'S Aides Teacher Relationship Specialty Start Date End Date David Kilgore DO [address] [place] [address] PCP - General Family Practice 06/15/20 Georgia Moore, RN [employer] Sales Rep 12/25/20 Leann Koo MD [address] [place] [address] Primary Staff Physician Cardiology 08/14/21 Nurse'S Aides Teacher Relationship Specialty Start Date End Date David Kilgore, DO [address] [place] [address] PCP - General Family Practice 06/15/20 Georgia Moore, RN [employer] Sales Rep 12/25/20 Leann Koo MD [address] [place] [address] Primary Staff Physician Cardiology 08/14/21 Nurse'S Aides Teacher Relationship Specialty Start Date End Date David Kilgore, DO [address] [place] [address] PCP - General Family Practice 06/15/20 Georgia Moore, RN [employer] Sales Rep 12/25/20 Leann Koo MD [address] [place] [address] Primary Staff Physician Cardiology 08/14/21 Nurse'S Aides Teacher Relationship Specialty Start Date End Date David Kilgore, DO [address] [place] [address] PCP - General Family Practice 06/15/20 Georgia Moore, RN [employer] Sales Rep 12/25/20 Leann Koo MD [address] [place] [address] Primary Staff Physician Cardiology 08/14/21 Nurse'S Aides Teacher Relationship Specialty Start Date End Date David Kilgore, DO [address] [place] [address] PCP - General Family Practice 06/15/20 Georgia Moore, RN [employer] Sales Rep 12/25/20 Leann Koo MD [address] [place] [address] Primary Staff Physician Cardiology 08/14/21 Nurse'S Aides Teacher Relationship Specialty Start Date End Date David Kilgore, DO [address] [place] [address] PCP - General Family Practice 06/15/20 Georgia Moore, RN [employer] Sales Rep 12/25/20 Leann Koo MD [address] [facility] [place] [address] Primary Staff Physician Cardiology 08/14/21 Nurse'S Aides Teacher Relationship Specialty Start Date End Date David Kilgore, DO [address] [place] [address] PCP - General Family Practice 06/15/20 Georgia Moore, RN [employer] Sales Rep 12/25/20 Leann Koo MD [address] [place] [address] Primary Staff Physician Cardiology 08/14/21 Nurse'S Aides Teacher Relationship Specialty Start Date End Date David Kilgore, DO [address] [place] [address] PCP - General Family Practice 06/15/20 Georgia Moore, RN [employer] Sales Rep 12/25/20 Leann Koo MD [address] [place], [place] [id number] Primary Staff Physician Cardiology 08/14/21 Nurse'S Aides Teacher Relationship Specialty Start Date End Date David Kilgore, DO [address] [place] [address] PCP - General Family Practice 06/15/20 Georgia Moore, RN [employer] Sales Rep 12/25/20 Leann Koo MD [address] [place] [address] Primary Staff Physician Cardiology 08/14/21 Nurse'S Aides Teacher Relationship Specialty Start Date End Date David Kilgore, DO [address] [place] [address] PCP - General Family Practice 06/15/20 Georgia Moore, RN [employer] Sales Rep 12/25/20 Leann Koo MD [address] [place] [address] Primary Staff Physician Cardiology 08/14/21 Nurse'S Aides Teacher Relationship Specialty Start Date End Date David Kilgore, DO [address] [place] [address] PCP - General Family Medicine 06/15/20 Georgia Moore, RN [employer] Sales Rep 12/25/20 Leann Koo MD [address] [place] [address] Primary Staff Physician Cardiology 08/14/21 Nurse'S Aides Teacher Relationship Specialty Start Date End Date David Kilgore, DO [address] [place] [address] PCP - General Family Medicine 06/15/20 Georgia Moore, RN [employer] Sales Rep 12/25/20 Leann Koo MD [address] [place] [address] Primary Staff Physician Cardiology 08/14/21 Nurse'S Aides Teacher Relationship Specialty Start Date End Date David Kilgore, DO [address] [place] [address] PCP - General Family Medicine 06/15/20 Georgia Moore, RN [employer] Sales Rep 12/25/20 Leann Koo MD [address] [place] [address] Primary Staff Physician Cardiology 08/14/21 Nurse'S Aides Teacher Relationship Specialty Start Date End Date Dvaid Kilgore, DO [address] [place] [address] PCP - General Family Medicine 06/15/20 Georgia Moore, RN [employer] Sales Rep 12/25/20 Leann Koo MD [address] [place] [address] Primary Staff Physician Cardiology 08/14/21 Nurse'S Aides Teacher Relationship Specialty Start Date End Date David Kilgore DO [address] [place] [address] PCP - General Family Medicine 06/15/20 Georgia Moore, RN [employer] Sales Rep 12/25/20 Leann Koo MD [address] [place] [address] Primary Staff Physician Cardiology 08/14/21 Nurse'S Aides Teacher Relationship Specialty Start Date End Date David Kilgore, DO [address] [place], [place] [address]84[address] PCP - General Family Medicine 06/15/20 Georgia Moore, RN [employer] Sales Rep 12/25/20 Leann Koo MD [address] [place] [address] Primary Staff Physician Cardiology 08/14/21 Nurse'S Aides Teacher Relationship Specialty Start Date End Date David Kilgore, DO [address] [place] [address] PCP - General Family Medicine 06/15/20 Georgia Moore, RN [employer] Sales Rep 12/25/20 Leann Koo MD [address] [place] [address] Primary Staff Physician Cardiology 08/14/21 Nurse'S Aides Teacher Relationship Specialty Start Date End Date David Kilgore, DO [address] [place] [address] PCP - General Family Medicine 06/15/20 Georgia Moore, RN [employer] Sales Rep 12/25/20 Leann Koo MD [address] [place], [place] [id number] Primary Staff Physician Cardiology 08/14/21 Nurse'S Aides Teacher Relationship Specialty Start Date End Date David Kilgore, DO [address] [place] [address] PCP - General Family Medicine 06/15/20 Georgia Moore, RN [employer] Sales Rep 12/25/20 Leann Koo MD [address] [place] [address] Primary Staff Physician Cardiology 08/14/21 Nurse'S Aides Teacher Relationship Specialty Start Date End Date David Kilgore, DO [address] [place] [address] PCP - General Family Medicine 06/15/20 Georgia Moore, RN [employer] Sales Rep 12/25/20 Leann Koo MD [address] [place] [address] Primary Staff Physician Cardiology 08/14/21 Nurse'S Aides Teacher Relationship Specialty Start Date End Date David Kilgore, DO [address] [place] [address] PCP - General Family Medicine 06/15/20 Georgia Moore, RN [employer] Sales Rep 12/25/20 Leann Koo MD [address] [place], [place] [id number] Primary Staff Physician Cardiology 08/14/21 Nurse'S Aides Teacher Relationship Specialty Start Date End Date David Kilgore, DO [address] [place] [address] PCP - General Family Medicine 06/15/20 Georgia Moore, RN [employer] Sales Rep 12/25/20 Leann Koo MD [address] [place], [place] [address]28[address] Primary Staff Physician Cardiology 08/14/21 Nurse'S Aides Teacher Relationship Specialty Start Date End Date David Kilgore, DO [address] [place] [address] PCP - General Family Medicine 06/15/20 Georgia Moore, RN [employer] Sales Rep 12/25/20 Leann Koo MD [address] [place] [address] Primary Staff Physician Cardiology 08/14/21 Nurse'S Aides Teacher Relationship Specialty Start Date End Date David Kilgore, DO [address] [place] [address] PCP - General Family Medicine 06/15/20 Georgia Moore, RN [employer] Sales Rep 12/25/20 Leann Koo MD [address] [place] [address] Primary Staff Physician Cardiology 08/14/21 Nurse'S Aides Teacher Relationship Specialty Start Date End Date David Kilgore, DO [address] [place] [address] PCP - General Family Medicine 06/15/20 Georgia Moore, RN [employer] Sales Rep 12/25/20 Leann Koo MD [address] [place] [address] Primary Staff Physician Cardiology 08/14/21 Nurse'S Aides Teacher Relationship Specialty Start Date End Date David Kilgore, DO [address] [place] [address] PCP - General Family Medicine 06/15/20 Georgia Moore, RN [employer] Sales Rep 12/25/20 Leann Koo MD [address] [place] [address] Primary Staff Physician Cardiology 08/14/21 Nurse'S Aides Teacher Relationship Specialty Start Date End Date David Kilgore, DO [address] [place] [address] PCP - General Family Medicine 06/15/20 Georgia Moore, RN [employer] Sales Rep 12/25/20 Leann Koo MD [address] [place] [address] Primary Staff Physician Cardiology 08/14/21 Nurse'S Aides Teacher Relationship Specialty Start Date End Date David Kilgore DO [address] [place] [address] PCP - General Family Medicine 06/15/20 Georgia Moore, RN [employer] Sales Rep 12/25/20 Leann Koo MD [address] [place] [address] Primary Staff Physician Cardiology 08/14/21 Nurse'S Aides Teacher Relationship Specialty Start Date End Date David Kilgore DO [address] [place] [address] PCP - General Family Medicine 06/15/20 Georgia Moore, RN [employer] Sales Rep 12/25/20 Leann Koo MD [address] [place] [address] Primary Staff Physician Cardiology 08/14/21 Nurse'S Aides Teacher Relationship Specialty Start Date End Date David Kilgore DO [address] [place] [address] PCP - General Family Medicine 06/15/20 Georgia Moore, RN [employer] Sales Rep 12/25/20 Leann Koo MD [address] [place] [address] Primary Staff Physician Cardiology 08/14/21 Nurse'S Aides Teacher Relationship Specialty Start Date End Date David Kilgore DO [address] [place] [address] PCP - General Family Medicine 06/15/20 Georgia Moore, RN [employer] Sales Rep 12/25/20 Leann Koo MD [address] [place] [address] Primary Staff Physician Cardiology 08/14/21 Nurse'S Aides Teacher Relationship Specialty Start Date End Date David Kilgore, DO [address] [place], [place] [address]35[address] PCP - General Family Medicine 06/15/20 Georgia Moore, RN [employer] Sales Rep 12/25/20 Leann Koo MD [address] [place] [address] Primary Staff Physician Cardiology 08/14/21 Nurse'S Aides Teacher Relationship Specialty Start Date End Date David Kilgore, DO [address] [place] [address] PCP - General Family Medicine 06/15/20 Georgia Moore, RN [employer] Sales Rep 12/25/20 Leann Koo MD [address] [place] [address] Primary Staff Physician Cardiology 08/14/21 Nurse'S Aides Teacher Relationship Specialty Start Date End Date David Kilgore, DO [address] [place] [address] PCP - General Family Medicine 06/15/20 Georgia Moore, RN [employer] Sales Rep 12/25/20 Leann Koo MD [address] [place] [address] Primary Staff Physician Cardiology 08/14/21 Nurse'S Aides Teacher Relationship Specialty Start Date End Date David Kilgore, DO [address] [place] [address] PCP - General Family Medicine 06/15/20 Georgia Moore, RN [employer] Sales Rep 12/25/20 Leann Koo MD [address] [place] [address] Primary Staff Physician Cardiology 08/14/21 Nurse'S Aides Teacher Relationship Specialty Start Date End Date David Kilgore, DO [address] [place] [address] PCP - General Family Medicine 06/15/20 Georgia Moore, RN [employer] Sales Rep 12/25/20 Leann Koo MD [address] [place], [place] 357[address] Primary Staff Physician Cardiology 08/14/21 Nurse'S Aides Teacher Relationship Specialty Start Date End Date David Kilgore, DO [address] [place] [address] PCP - General Family Medicine 06/15/20 Georgia Moore, RN [employer] Sales Rep 12/25/20 Leann Koo MD [address] [place], [place] [address] Primary Staff Physician Cardiology 08/14/21 Nurse'S Aides Teacher Relationship Specialty Start Date End Date David Kilgore, DO [address] [place] [address] PCP - General Family Medicine 06/15/20 Georgia Moore, RN [employer] Sales Rep 12/25/20 Leann Koo MD [address] [place], [place] [address]16[address] Primary Staff Physician Cardiology 08/14/21 Nurse'S Aides Teacher Relationship Specialty Start Date End Date David Kilgore, DO [address] [place] [address] PCP - General Family Medicine 06/15/20 Georgia Moore, RN [employer] Sales Rep 12/25/20 Leann Koo MD [address] [place] [address] Primary Staff Physician Cardiology 08/14/21 Nurse'S Aides Teacher Relationship Specialty Start Date End Date David Kilgore, DO [address] [place] [address] PCP - General Family Medicine 06/15/20 Georgia Moore, RN [employer] Sales Rep 12/25/20 Leann Koo MD [address] [place], [place] [id number] Primary Staff Physician Cardiology 08/14/21 Nurse'S Aides Teacher Relationship Specialty Start Date End Date David Kilgore DO [address] [place] [address] PCP - General Family Medicine 06/15/20 Georgia Moore, RN [employer] Sales Rep 12/25/20 Leann Koo MD [address] [place] [address] Primary Staff Physician Cardiology 08/14/21 Nurse'S Aides Teacher Relationship Specialty Start Date End Date David Kilgore DO [address] [place] [address] PCP - General Family Medicine 06/15/20 Georgia Moore, RN [employer] Sales Rep 12/25/20 Leann Koo MD [address] [place] [address] Primary Staff Physician Cardiology 08/14/21 Nurse'S Aides Teacher Relationship Specialty Start Date End Date David Kilgore DO [address] [place] [address] PCP - General Family Medicine 06/15/20 Georgia Moore, RN [employer] Sales Rep 12/25/20 Leann Koo MD [address] [facility] [place] [address] Primary Staff Physician Cardiology 08/14/21 Nurse'S Aides Teacher Relationship Specialty Start Date End Date David Kilgore DO [address] [place] [address] PCP - General Family Medicine 06/15/20 Georgia Moore, RN [employer] Sales Rep 12/25/20 Leann Koo MD [address] [place] [address] Primary Staff Physician Cardiology 08/14/21 Nurse'S Aides Teacher Relationship Specialty Start Date End Date David Kilgore DO [address] [place] [address] PCP - General Family Medicine 06/15/20 Georgia Moore, RN [employer] Sales Rep 12/25/20 Leann Koo MD [address] [place] [address] Primary Staff Physician Cardiology 08/14/21 Nurse'S Aides Teacher Relationship Specialty Start Date End Date David Kilgore DO [address] [place] [address] PCP - General Family Medicine 06/15/20 Georgia Moore, RN [employer] Sales Rep 12/25/20 Leann Koo MD [address] [place] [address] Primary Staff Physician Cardiology 08/14/21 Nurse'S Aides Teacher Relationship Specialty Start Date End Date David Kilgore DO [address] [place] [address] PCP - General Family Medicine 06/15/20 Georgia Moore, RN [employer] Sales Rep 12/25/20 Leann Koo MD [address] [place], [place] [id number] Primary Staff Physician Cardiology 08/14/21 Nurse'S Aides Teacher Relationship Specialty Start Date End Date David Kilgore DO [address] [place], [place] [address] PCP - General Family Medicine 06/15/20 Georgia Moore, RN [employer] Sales Rep 12/25/20 Leann Koo MD [address] [place] [place], [place] [address] Primary Staff Physician Cardiology 08/14/21 Nurse'S Aides Teacher Relationship Specialty Start Date End Date David Kilgore DO [address] [place] [address] PCP - General Family Medicine 06/15/20 Georgia Moore, RN [employer] Sales Rep 12/25/20 Leann Koo MD [address] [place], [place] [id number] Primary Staff Physician Cardiology 08/14/21 Nurse'S Aides Teacher Relationship Specialty Start Date End Date David Kilgore DO [address] [place] [address] PCP - General Family Medicine 06/15/20 Georgia Moore, RN [employer] 12/25/20 Leann Koo MD [address] [place] [address] Primary Staff Physician Cardiology 08/14/21 Nurse'S Aides Teacher Relationship Specialty Start Date End Date David Kilgore DO [address] [place] [address] PCP - General Family Medicine 06/15/20 Georgia Moore, RN [employer] 12/25/20 Leann Koo MD [address] [facility] [place] [address] Primary Staff Physician Cardiology 08/14/21 Nurse'S Aides Teacher Relationship Specialty Start Date End Date David Kilgore DO [address] [place] [address] PCP - General Family Medicine 06/15/20 Georgia Moore, RN [employer] 12/25/20 Leann Koo MD [address] [place] [address] Primary Staff Physician Cardiology 08/14/21 Nurse'S Aides Teacher Relationship Specialty Start Date End Date David Kilgore DO [address] [place] [address] PCP - General Family Medicine 06/15/20 Georgia Moore, RN [employer] 12/25/20 Leann Koo MD [address] [place] [address] Primary Staff Physician Cardiology 08/14/21 Nurse'S Aides Teacher Relationship Specialty Start Date End Date David Kilgore DO [address] [place] [address] PCP - General Family Medicine 06/15/20 Georgia Moore, RN [employer] 12/25/20 Leann Koo MD [address] [place], [place] [id number] Primary Staff Physician Cardiology 08/14/21 Nurse'S Aides Teacher Relationship Specialty Start Date End Date David Kilgore DO [address] [place] [address] PCP - General Family Medicine 06/15/20 Georgia Moore, RN [employer] 12/25/20 Leann Koo MD [address] [place], [place] [id number] Primary Staff Physician Cardiology 08/14/21 Nurse'S Aides Teacher Relationship Specialty Start Date End Date David Kilgore DO [address] [place] [address] PCP - General Family Medicine 06/15/20 Georgia Moore, RN [employer] 12/25/20 Leann Koo MD [address] [place] [address] Primary Staff Physician Cardiology 08/14/21 Nurse'S Aides Teacher Relationship Specialty Start Date End Date David Kilgore DO [address] [place] [address] PCP - General Family Medicine 06/15/20 Georgia Moore, RN [employer] 12/25/20 Leann Koo MD [address] [place], [place] [address] Primary Staff Physician Cardiology 08/14/21 Nurse'S Aides Teacher Relationship Specialty Start Date End Date David Kilgore DO [address] [place] [address] PCP - General Family Medicine 06/15/20 Georgia Moore, RN [employer] 12/25/20 Leann Koo MD [address] [place] [address] Primary Staff Physician Cardiology 08/14/21 Nurse'S Aides Teacher Relationship Specialty Start Date End Date David Kilgore DO [address] [place] [address] PCP - General Family Medicine 06/15/20 Georgia Moore, RN [employer] 12/25/20 Leann Koo MD [address] [place] [address] Primary Staff Physician Cardiology 08/14/21 Nurse'S Aides Teacher Relationship Specialty Start Date End Date David Kilgore DO [address] [place] [address] PCP - General Family Medicine 06/15/20 Georgia Moore, RN [employer] 12/25/20 Leann Koo MD [address] [place] [address] Primary Staff Physician Cardiology 08/14/21 Nurse'S Aides Teacher Relationship Specialty Start Date End Date David Kilgore DO [address] [place] [address] PCP - General Family Medicine 06/15/20 Georgia Moore, RN [employer] 12/25/20 Leann Koo MD [address] [place] [address] Primary Staff Physician Cardiology 08/14/21 Nurse'S Aides Teacher Relationship Specialty Start Date End Date David Kilgore DO [address] [place] [address] PCP - General Family Medicine 06/15/20 Georgia Moore, RN [employer] 12/25/20 Leann Koo MD [address] [place] [address] Primary Staff Physician Cardiology 08/14/21 Nurse'S Aides Teacher Relationship Specialty Start Date End Date David Kilgore DO [address] [place] [address] PCP - General Family Medicine 06/15/20 Georgia Moore, RN [employer] 12/25/20 Leann Koo MD [address] [place] [address] Primary Staff Physician Cardiology 08/14/21 Nurse'S Aides Teacher Relationship Specialty Start Date End Date David Kilgore DO [address] [place] [address] PCP - General Family Medicine 06/15/20 Georgia Moore, RN [employer] 12/25/20 Leann Koo MD [address] [place] [address] Primary Staff Physician Cardiology 08/14/21 Nurse'S Aides Teacher Relationship Specialty Start Date End Date David Kilgore DO [address] [place] [address] PCP - General Family Medicine 06/15/20 Georgia Moore, RN [employer] 12/25/20 Leann Koo MD [address] [place], [place] 1912[address] Primary Staff Physician Cardiology 08/14/21 Nurse'S Aides Teacher Relationship Specialty Start Date End Date David Kilgore DO [address] [place] [address] PCP - General Family Medicine 06/15/20 Georgia Moore, RN [employer] 12/25/20 Leann Koo MD [address] [place], [place] 6415095 Primary Staff Physician Cardiology 08/14/21 Nurse'S Aides Teacher Relationship Specialty Start Date End Date David Kilgore DO [address] [place] [address] PCP - General Family Medicine 06/15/20 Georgia Moore, RN [employer] 12/25/20 Leann Koo MD [address] [place] [address] Primary Staff Physician Cardiology 08/14/21 Nurse'S Aides Teacher Relationship Specialty Start Date End Date David Kilgore DO [address] [place] [address] PCP - General Family Medicine 06/15/20 Georgia Moore, RN [employer] 12/25/20 Leann Koo MD [address] [place] [address] Primary Staff Physician Cardiology 08/14/21 Nurse'S Aides Teacher Relationship Specialty Start Date End Date David Kilgore DO [address] [place] [address] PCP - General Family Medicine 06/15/20 Georgia Moore, RN [employer] 12/25/20 Leann Koo MD [address] [place] [address] Primary Staff Physician Cardiology 08/14/21 Nurse'S Aides Teacher Relationship Specialty Start Date End Date David Kilgore DO [address] [place] [address] PCP - General Family Medicine 06/15/20 Georgia Moore, RN [employer] 12/25/20 Leann Koo MD [address] [place], [place] 1220995 Primary Staff Physician Cardiology 08/14/21 Nurse'S Aides Teacher Relationship Specialty Start Date End Date David Kilgore DO [address] [place] [address] PCP - General Family Medicine 06/15/20 Georgia Moore, RN [employer] 12/25/20 Leann Koo MD [address] [place], [place] 6844[address] Primary Staff Physician Cardiology 08/14/21 Nurse'S Aides Teacher Relationship Specialty Start Date End Date David Kilgore DO [address] [place] [address] PCP - General Family Medicine 06/15/20 Gerogia Moore, RN [employer] 12/25/20 Leann Koo MD [address] [place] [address] Primary Staff Physician Cardiology 08/14/21 Nurse'S Aides Teacher Relationship Specialty Start Date End Date David Kilgore DO [address] [place] [address] PCP - General Family Medicine 06/15/20 Georgia Moore, RN [employer] 12/25/20 Leann Koo MD [address] [place] [address] Primary Staff Physician Cardiology 08/14/21 Nurse'S Aides Teacher Relationship Specialty Start Date End Date David Kilgore DO [address] [place] [address] PCP - General Family Medicine 06/15/20 Georgia Moore, RN [employer] 12/25/20 Leann Koo MD [address] [place] [address] Primary Staff Physician Cardiology 08/14/21 Nurse'S Aides Teacher Relationship Specialty Start Date End Date David Kilgore DO [address] [place] [address] PCP - General Family Medicine 06/15/20 Georgia Moore, RN [employer] 12/25/20 Leann Koo MD [address] [place], [place] 04298[address] Primary Staff Physician Cardiology 08/14/21 Nurse'S Aides Teacher Relationship Specialty Start Date End Date David Kilgore DO [address] [place] [address] PCP - General Family Medicine 06/15/20 Georgia Moore, RN [employer] 12/25/20 Leann Koo MD [address] [place], [place] 8067495 Primary Staff Physician Cardiology 08/14/21 Nurse'S Aides Teacher Relationship Specialty Start Date End Date David Kilgore DO [address] [place] [address] PCP - General Family Medicine 06/15/20 Georgia Moore, RN [employer] 12/25/20 Leann Koo MD [address] [place] [address] Primary Staff Physician Cardiology 08/14/21 Nurse'S Aides Teacher Relationship Specialty Start Date End Date David Kilgore DO [address] [place] [address] PCP - General Family Medicine 06/15/20 Georgia Moore, RN [employer] 12/25/20 Leann Koo MD [address] [place] [address] Primary Staff Physician Cardiology 08/14/21 Nurse'S Aides Teacher Relationship Specialty Start Date End Date David Kilgore DO [address] [place] [address] PCP - General Family Medicine 06/15/20 Georgia Moore, RN [employer] 12/25/20 Leann Koo MD [address] [place], [place] 4575595 Primary Staff Physician Cardiology 08/14/21 Nurse'S Aides Teacher Relationship Specialty Start Date End Date David Kilgore DO [address] [place] [address] PCP - General Family Medicine 06/15/20 Georgia Moore, RN [employer] 12/25/20 Leann Koo MD [address] [place] [address] Primary Staff Physician Cardiology 08/14/21 Nurse'S Aides Teacher Relationship Specialty Start Date End Date David Kilgore DO [address] [place] [address] PCP - General Family Medicine 06/15/20 Georgia Moore, RN [employer] 12/25/20 Leann Koo MD [address] [facility] [place] [address] Primary Staff Physician Cardiology 08/14/21 Nurse'S Aides Teacher Relationship Specialty Start Date End Date David Kilgore DO [address] [place] [address] PCP - General Family Medicine 06/15/20 Georgia Moore, RN [employer] 12/25/20 Leann Koo MD [address] [facility] [place] [address] Primary Staff Physician Cardiology 08/14/21 Nurse'S Aides Teacher Relationship Specialty Start Date End Date David Kilgore DO [address] [place] [address] PCP - General Family Medicine 06/15/20 Georgia Moore, RN [employer] 12/25/20 Leann Koo MD [address] [facility] [place] [address] Primary Staff Physician Cardiology 08/14/21 Nurse'S Aides Teacher Relationship Specialty Start Date End Date David Kilgore DO [address] [place] [address] PCP - General Family Medicine 06/15/20 Georgia Moore, RN [employer] 12/25/20 Leann Koo MD [address] [facility] [place] [address] Primary Staff Physician Cardiology 08/14/21 Nurse'S Aides Teacher Relationship Specialty Start Date End Date David Kilgore DO [address] [place] [address] PCP - General Family Medicine 06/15/20 Georgia Moore, RN [employer] 12/25/20 Leann Koo MD [address] [place] [address] Primary Staff Physician Cardiology 08/14/21 Nurse'S Aides Teacher Relationship Specialty Start Date End Date David Kilgore DO [address] [place] [address] PCP - General Family Medicine 06/15/20 Georgia Moore, RN [employer] 12/25/20 Leann Koo MD [address] [place] [address] Primary Staff Physician Cardiology 08/14/21 Nurse'S Aides Teacher Relationship Specialty Start Date End Date David Kilgore DO [address] [place] [address] PCP - General Family Medicine 06/15/20 Georgia Moore, RN [employer] 12/25/20 Leann Koo MD [address] [place], [place] 0222195 Primary Staff Physician Cardiology 08/14/21 Nurse'S Aides Teacher Relationship Specialty Start Date End Date David Kilgore DO [address] [place], [place] 605591 PCP - General Family Medicine 06/15/20 Georgia Moore, RN [employer] 12/25/20 Leann Koo MD [address] [place] [address] Primary Staff Physician Cardiology 08/14/21 Nurse'S Aides Teacher Relationship Specialty Start Date End Date David Kilgore DO [address] [place] [address] PCP - General Family Medicine 06/15/20 Georgia Moore, RN [employer] 12/25/20 Leann Koo MD [address] [place] [address] Primary Staff Physician Cardiology 08/14/21 Nurse'S Aides Teacher Relationship Specialty Start Date End Date David Kilgore DO [address] [place] [address] PCP - General Family Medicine 06/15/20 Georgia Moore, RN [employer] 12/25/20 Leann Koo MD [address] [place] [address] Primary Staff Physician Cardiology 08/14/21 Regine Panda, BEAUTY CULTURIST.MILLED RICE BROKER [address] [place], [place] [address]43[address] Geospatial Applications Developer Family Medicine 11/07/24 Mar Harvey APRN.MILLED RICE BROKER [address] [place], [place] [address] [facility] 11/07/24 Nurse'S Aides Teacher Relationship Specialty Start Date End Date David Kilgore DO [address] [place] [address] PCP - General Family Medicine 06/15/20 Georgia Moore, RN [employer] 12/25/20 Leann Koo MD [address] [place] [address] Primary Staff Physician Cardiology 08/14/21 Regine Panda, BEAUTY CULTURIST.MILLED RICE BROKER [address] [place] [address] [facility] 11/07/24 Mar Harvey, BEAUTY CULTURIST.MILLED RICE BROKER [address] [place] [address] [facility] 11/07/24 Nurse'S Aides Teacher Relationship Specialty Start Date End Date David Kilgore DO [address] [place] [address] PCP - General Family Medicine 06/15/20 Georgia Moore, [facility] [employer] Sales Rep 12/25/20 Leann Koo MD [address] [place] [address] Primary Staff Physician Cardiology 08/14/21 Regine Panda, BEAUTY CULTURIST.MILLED RICE BROKER [address] [place] [address] [facility] 11/07/24 Mar Harvey BEAUTY CULTURIST.MILLED RICE BROKER [address] [place] [address] Geospatial Applications [facility] 11/07/24 Nurse'S Aides Teacher Relationship Specialty Start Date End Date David Kilgore DO [address] [place] [address] PCP - General Family Medicine 06/15/20 Georgia Moore, RN [facility] [employer] Sales Rep 12/25/20 Leann Koo MD [address] [place] [address] Primary Staff Physician Cardiology 08/14/21 Regine Panda APRN.MILLED RICE BROKER [address] [place] [address] Geospatial Applications Developer[facility] 11/07/24 Mar Harvey APRN.MILLED RICE BROKER [address] [place] [address] [facility] 11/07/24 Nurse'S Aides Teacher Relationship Specialty Start Date End Date David Kilgore DO [address] [place] [address] PCP - General Family Medicine 06/15/20 Georgia Moore, [facility] [employer] Sales Rep 12/25/20 Leann Koo MD [address] [place] [address] Primary Staff Physician Cardiology 08/14/21 Regine Panda, BEAUTY CULTURIST.MILLED RICE BROKER [address] [place] [address] Geospatial Applications DeveloperKind[facility] 11/07/24 Mar Harvey APRN.MILLED RICE BROKER [address] [place] [address] [facility] 11/07/24 Nurse'S Aides Teacher Relationship Specialty Start Date End Date David Kilgore DO [address] [place] [address] PCP - General Family Medicine 06/15/20 Georgia Moore, RN [employer] 12/25/20 Leann Koo MD [address] [place], [place] [address] Primary Staff Physician Cardiology 08/14/21 Regine Panda, BEAUTY CULTURIST.MILLED RICE BROKER [address] [place] [address] Geospatial Applications Developer[facility] 11/07/24 Mar Harvey, BEAUTY CULTURIST.MILLED RICE BROKER [address] [place] [address] [facility] 11/07/24 Nurse'S Aides Teacher Relationship Specialty Start Date End Date David Kilgore DO [address] [place] [address] PCP - General Family Medicine 06/15/20 Georgia Moore, RN [facility] [employer] Sales Rep 12/25/20 Leann Koo MD [address] [place], [place] [address] Primary Staff Physician Cardiology 08/14/21 Regine Panda, BEAUTY CULTURIST.MILLED RICE BROKER [address] [place] [address] [facility] 11/07/24 Mar Harvey APRN.MILLED RICE BROKER [address] [place] [address] [facility] 11/07/24 Nurse'S Aides Teacher Relationship Specialty Start Date End Date David Kilgore DO [address] [place] [address] PCP - General Family Medicine 06/15/20 Georgia Moore, RN [facility] [employer] Sales Rep 12/25/20 Leann Koo MD [address] [place], [place] [address] Primary Staff Physician Cardiology 08/14/21 Regine Panda, BEAUTY CULTURIST.MILLED RICE BROKER [address] [place] [address] [facility] 11/07/24 Mar Harvey, BEAUTY CULTURIST.MILLED RICE BROKER [address] [place] [address] [facility] 11/07/24 Nurse'S Aides Teacher Relationship Specialty Start Date End Date David Kilgore DO [address] [place] [address] PCP - General Family Medicine 06/15/20 Georgia Moore, RN [facility] [employer] Sales Rep 12/25/20 Leann Koo MD [address] [place], [place] 40088[address] Primary Staff Physician Cardiology 08/14/21 Regine Panda, BEAUTY CULTURIST.MILLED RICE BROKER [address] [place] [address] [facility] 11/07/24 Mar Harvey BEAUTY CULTURIST.MILLED RICE BROKER [address] [place], [place] 2407[address] [facility] 11/07/24 Nurse'S Aides Teacher Relationship Specialty Start Date End Date David Kilgore DO [address] [place] [address] PCP - General Family Medicine 06/15/20 Georgia Moore, RN [employer] 12/25/20 Leann Koo MD [address] [place] [address] Primary Staff Physician Cardiology 08/14/21 Regine Panda, BEAUTY CULTURIST.MILLED RICE BROKER [address] [place] [address] [facility] 11/07/24 JoseMar, BEAUTY CULTURIST.MILLED RICE BROKER [address] [place] [address] [facility] 11/07/24 Nurse'S Aides Teacher Relationship Specialty Start Date End Date David Kilgore DO [address] [place] [address] PCP - General Family Medicine 06/15/20 Georgia Moore, RN P [employer] Sales Rep 12/25/20 Leann Koo MD [address] [place], [place] 0944[address] Primary Staff Physician Cardiology 08/14/21 Regine Panda, BEAUTY CULTURIST.MILLED RICE BROKER [address] [place], [place] 7655[address] [facility] 11/07/24 [facility], BEAUTY CULTURIST.MILLED RICE BROKER [address] [place], [place] 269[address] [facility] 11/07/24 Nurse'S Aides Teacher Relationship Specialty Start Date End Date David Kilgore DO [address] [place] [address] PCP - General Family Medicine 06/15/20 Georgia Moore, RN [employer] Rep 12/25/20 Leann Koo MD [address] [facility] [place] [address] Primary Staff Physician Cardiology 08/14/21 Regine Panda, BEAUTY CULTURIST.MILLED RICE BROKER [address] [place] [address] [facility] 11/07/24 [facility], BEAUTY CULTURIST.MILLED RICE BROKER [address] [place] [address] [facility] 11/07/24 Nurse'S Aides Teacher Relationship Specialty Start Date End Date David Kilgore DO [address] [place] [address] PCP - General Family Medicine 06/15/20 Georgia Moore, RN [employer] Rep 12/25/20 Leann Koo MD [address] [facility] [place], [place] 3595[address] Primary Staff Physician Cardiology 08/14/21 Regine Panda, BEAUTY CULTURIST.MILLED RICE BROKER [address] [place], [place] [address]16[address] [facility] 11/07/24 [facility], BEAUTY CULTURIST.MILLED RICE BROKER [address] [place] [address] [facility] 11/07/24 Nurse'S Aides Teacher Relationship Specialty Start Date End Date David Kilgore DO [address] [place] [address] PCP - General Family Medicine 06/15/20 Georgia Moore, RN [employer] Rep 12/25/20 Leann Koo MD [address] [facility] [place] [address] Primary Staff Physician Cardiology 08/14/21 Regine Panda, BEAUTY CULTURIST.MILLED RICE BROKER [address] [place] [address] [facility] 11/07/24 [facility], BEAUTY CULTURIST.MILLED RICE BROKER [address] [place] [address] [facility] 11/07/24 Nurse'S Aides Teacher Relationship Specialty Start Date End Date David Kilgore DO [address] [place] [address] PCP - General Family Medicine 06/15/20 Georgia Moore, RN [employer] Rep 12/25/20 Leann Koo MD [address] [facility] [address] [place], [place] [address] Primary Staff Physician Cardiology 08/14/21 Regine Panda, BEAUTY CULTURIST.MILLED RICE BROKER [address] [place], [place] 796531 [facility] 11/07/24 Mar Harvey, BEAUTY CULTURIST.MILLED RICE BROKER [address] [place] [address] [facility] 11/07/24 Nurse'S Aides Teacher Relationship Specialty Start Date End Date David Kilgore DO [address] [place] [address] PCP - General Family Medicine 06/15/20 Georgia Moore, RN [employer] Rep 12/25/20 Leann Koo MD [address] [place] [address] Primary Staff Physician Cardiology 08/14/21 Regine Panda, BEAUTY CULTURIST.MILLED RICE BROKER [address] [place] [address] [facility] 11/07/24 Mar Harvey, BEAUTY CULTURIST.MILLED RICE BROKER [address] [place] [address] [facility] 11/07/24 Nurse'S Aides Teacher Relationship Specialty Start Date End Date David Kilgore DO [address] [place] [address] PCP - General Family Medicine 06/15/20 Georgia Moore, RN [employer] Rep 12/25/20 Leann Koo MD [address] [facility] [place] [address] Primary Staff Physician Cardiology 08/14/21 Regine Panda, BEAUTY CULTURIST.MILLED RICE BROKER [address] [place] [address] [facility] 11/07/24 Mar Harvey APRN.MILLED RICE BROKER [address] [place] [address] [facility] 11/07/24 Nurse'S Aides Teacher Relationship Specialty Start Date End Date David Kilgore DO [address] [place] [address] PCP - General Family Medicine 06/15/20 Georgia Moore, RN [employer] 12/25/20 Leann Koo MD [address] [place] [address] Primary Staff Physician Cardiology 08/14/21 Regine Panda, BEAUTY CULTURIST.MILLED RICE BROKER [address] [place] [address] [facility] 11/07/24 Mar Harvey, BEAUTY CULTURIST.MILLED RICE BROKER [address] [place] [address] [facility] 11/07/24 Nurse'S Aides Teacher Relationship Specialty Start Date End Date David Kilgore DO [address] [place] [address] PCP - General Family Medicine 06/15/20 Georgia Moore, FREDERICK [employer] Rep 12/25/20 Leann Koo MD [address] [place], [place] [address] Primary Staff Physician Cardiology 08/14/21 Regine Panda, BEAUTY CULTURIST.MILLED RICE BROKER [address] [place] [address] Geospatial Applications Developer[facility] 11/07/24 Mar Harvey APRN.MILLED RICE BROKER [address] [place] [address] Geospatial Applications DeveloperKind[facility] 11/07/24 Nurse'S Aides Teacher Relationship Specialty Start Date End Date David Kilgore DO [address] [place] [address] PCP - General Family Medicine 06/15/20 Georgia Moore, RN [employer] 12/25/20 Leann Koo MD [address] [place] [address] Primary Staff Physician Cardiology 08/14/21 Regine Panda, BEAUTY CULTURIST.MILLED RICE BROKER [address] [place] [address] [facility] 11/07/24 Mar Harvey, BEAUTY CULTURIST.MILLED RICE BROKER [address] [place] [address] [facility] 11/07/24 Nurse'S Aides Teacher Relationship Specialty Start Date End Date David Kilgore DO [address] [place] [address] PCP - General Family Medicine 06/15/20 Georgia Moore, FREDERICK [employer] Sales Rep 12/25/20 Leann Koo MD [address] [place], [place] [address]95 Primary Staff Physician Cardiology 08/14/21 Regine Panda BEAUTY CULTURIST.MILLED RICE BROKER [address] [place] [address] [facility] 11/07/24 Mar Harvey APRN.MILLED RICE BROKER [address] [place] [address] Geospatial Applications Developer[facility] 11/07/24 Nurse'S Aides Teacher Relationship Specialty Start Date End Date David Kilgore DO [address] [place] [address] PCP - General Family Medicine 06/15/20 Georgia Moore, RN [employer] Sales Rep 12/25/20 Leann Koo MD [address] [place] [address] Primary Staff Physician Cardiology 08/14/21 Regine Panda BEAUTY CULTURIST.MILLED RICE BROKER [address] [place] [address] [facility] 11/07/24 02/18/25 Mar Harvey BEAUTY CULTURIST.MILLED RICE BROKER [address] [place] [address] [facility] 11/07/24 Nurse'S Aides Teacher Relationship Specialty Start Date End Date David Kilgore DO [address] [place] [address] PCP - General Family Medicine 06/15/20 Georgia Moore, RN [employer] Rep 12/25/20 Leann Koo MD [address] [place] [address] Primary Staff Physician Cardiology 08/14/21 Mar Harvey, BEAUTY CULTURIST.MILLED RICE BROKER [address] [place] [address] Geospatial Applications Developer [facility] 11/07/24 Nurse'S Aides Teacher Relationship Specialty Start Date End Date David Kilgore DO [address] [place] [address] PCP - General Family Medicine 06/15/20 Georgia Moore, RN [employer] Rep 12/25/20 Leann Koo MD [address] [place] [address] Primary Staff Physician Cardiology 08/14/21 Mar Harvey, BEAUTY CULTURIST.MILLED RICE BROKER [address] [place] [address] [facility] 11/07/24 Nurse'S Aides Teacher Relationship Specialty Start Date End Date David Kilgore DO [address] [place] [address] PCP - General Family Medicine 06/15/20 Georgia Moore, RN P [employer] Sales Rep 12/25/20 Leann Koo MD [address] [place], [place] [address]15[address] Primary Staff Physician Cardiology 08/14/21 Mar Harvey, BEAUTY CULTURIST.MILLED RICE BROKER [address] [place] [address] [facility] 11/07/24 Nurse'S Aides Teacher Relationship Specialty Start Date End Date David Kilgore DO [address] [place] [address] PCP - General Family Medicine 06/15/20 Georgia Moore, RN P [employer] Sales Rep 12/25/20 Leann Koo MD [address] [place], [place] [id number] Primary Staff Physician Cardiology 08/14/21 Mar Harvey, BEAUTY CULTURIST.MILLED RICE BROKER [address] [place] [address] [facility] 11/07/24 Nurse'S Aides Teacher Relationship Specialty Start Date End Date David Kilgore DO [address] [place] [address] PCP - General Family Medicine 06/15/20 Georgia Moore RN P Auto Finance Sales Rep 12/25/20 Leann Koo MD [address] [place], [place] [id number] Primary Staff Physician Cardiology 08/14/21 Mar Harvey, BEAUTY CULTURIST.MILLED RICE BROKER [address] [place] [address] [facility] 11/07/24 Nurse'S Aides Teacher Relationship Specialty Start Date End Date David Kilgore DO [address] [place] [address] PCP - General Family Medicine 06/15/20 Georgia Moore, RN P Auto Finance Sales Rep 12/25/20 Leann Koo MD [address] [place], [place] [id number] Primary Staff Physician Cardiology 08/14/21 Regine Panda, BEAUTY CULTURIST.MILLED RICE BROKER [address] [place] [address] Geospatial Applications Developer [facility] 11/07/24 02/18/25 Mar Harvey APRN.MILLED RICE BROKER [address] [place] [address] Geospatial Applications Developer [facility] 11/07/24 Nurse'S Aides Teacher Relationship Specialty Start Date End Date David Kilgore DO [address] [place] [address] PCP - General Family Medicine 06/15/20 Georgia Moore, RN EHP [employer] Sales Rep 12/25/20 Leann Koo MD [address] [place] [address] Primary Staff Physician Cardiology 08/14/21 Mar Harvey, BEAUTY CULTURIST.MILLED RICE BROKER [address] [place] [address] [facility] 11/07/24 Nurse'S Aides Teacher Relationship Specialty Start Date End Date David Kilgore DO [address] [place] [address] PCP - General Family Medicine 06/15/20 Georgia Moore, RN EHP [employer] Sales Rep 12/25/20 Leann Koo MD [address] [place] [address] Primary Staff Physician Cardiology 08/14/21 Mar Harvey, BEAUTY CULTURIST.MILLED RICE BROKER [address] [place] [address] Geospatial Applications Developer [facility] 11/07/24 Nurse'S Aides Teacher Relationship Specialty Start Date End Date David Kilgore DO [address] [place], [place] [id number] PCP - General Family Medicine 06/15/20 Georgia Moore, RN EHP [employer] Sales Rep 12/25/20 Leann Koo MD [address] [place] [address] Primary Staff Physician Cardiology 08/14/21 Mar Harvey, BEAUTY CULTURIST.MILLED RICE BROKER [address] [place], [place] [address] Geospatial Applications Developer [facility] 11/07/24 Nurse'S Aides Teacher Relationship Specialty Start Date End Date David Kilgore DO [address] [place], [place] [address] PCP - General Family Medicine 06/15/20 Georgia Moore, RN EHP [employer] Sales Rep 12/25/20 Leann Koo MD [address] [place] [address] Primary Staff Physician Cardiology 08/14/21 Regine Panda, BEAUTY CULTURIST.MILLED RICE BROKER [address] [place] [address] Geospatial Applications Developer [facility] 11/07/24 02/18/25 Mar Harvey, BEAUTY CULTURIST.MILLED RICE BROKER [address] [place], [place] [address] Geospatial Applications Developer [facility] 11/07/24 Nurse'S Aides Teacher Relationship Specialty Start Date End Date David Kilgore DO [address] [place], [place] [id number] PCP - General Family Medicine 06/15/20 Georgia Moore, RN EHP [employer] Sales Rep 12/25/20 Leann Koo MD [address] [place] [address] Primary Staff Physician Cardiology 08/14/21 Mar Harvey, BEAUTY CULTURIST.MILLED RICE BROKER [address] [place] [address] Geospatial [facility] Nurse'S Aides Teacher Relationship Specialty Start Date End Date David Kilgore DO [address] [place] [address] PCP - General Family Medicine 06/15/20 Georgia Moore, RN EHP [employer] Sales Rep 12/25/20 Leann Koo MD [address] [place] [address] Primary Staff Physician Cardiology 08/14/21 Mar Harvey, BEAUTY CULTURIST.MILLED RICE BROKER [address] [place] [address] [facility] 11/07/24 Nurse'S Aides Teacher Relationship Specialty Start Date End Date David Kilgore DO [address] [place] [address] PCP - General Family Medicine 06/15/20 Georgia Moore, RN EHP [employer] Sales Rep 12/25/20 Leann Koo MD [address] [place] [address] Primary Staff Physician Cardiology 08/14/21 Mar Harvey, BEAUTY CULTURIST.MILLED RICE BROKER [address] [place], [place] [address] Geospatial Applications Developer [facility] 11/07/24 Nurse'S Aides Teacher Relationship Specialty Start Date End Date David Kilgore DO [address] [place] [address] PCP - General Family Medicine 06/15/20 Georgia Moore, RN EHP [employer] Sales Rep 12/25/20 Leann Koo MD [address] [place], [place] [id number] Primary Staff Physician Cardiology 08/14/21 Mar Harvey APRN.MILLED RICE BROKER [address] [place] [address] Geospatial Applications Developer [facility] 11/07/24 Maria Isabel Waters, BEAUTY CULTURIST.MILLED RICE BROKER [address] [place] [address] Geospatial Applications [facility] 05/16/25 Nurse'S Aides Teacher Relationship Specialty Start Date End Date David Kilgore DO [address] [place] [address] PCP - General Family Medicine 06/15/20 Georgia Moore, [facility] Auto Finance Sales Rep 12/25/20 Leann Koo MD [address] [place] [address] Primary Staff Physician Cardiology 08/14/21 Mar Harvey, BEAUTY CULTURIST.MILLED RICE BROKER [address] [place] [address] Geospatial Applications [facility] 11/07/24 Maria Isabel Waters BEAUTY CULTURIST.MILLED RICE BROKER [address] [place] [address] Geospatial Applications Developer [facility] 05/16/25 Nurse'S Aides Teacher Relationship Specialty Start Date End Date David Kilgore DO [address] [place] [address] PCP - General Family Medicine 06/15/20 Georgia Moore, RN EHP [employer] Sales Rep 12/25/20 Leann Koo MD [address] [place], [place] [id number] Primary Staff Physician Cardiology 08/14/21 Mar Harvey APRN.MILLED RICE BROKER [address] [place] [address] Geospatial Applications Developer [facility] 11/07/24 Maria Isabel Waters, BEAUTY CULTURIST.MILLED RICE BROKER [address] [place] [address] Geospatial Applications [facility] 05/16/25 Nurse'S Aides Teacher Relationship Specialty Start Date End Date David Kilgore DO [address] [place] [address] PCP - General Family Medicine 06/15/20 Georgia Moore, [facility] Auto Finance Sales Rep 12/25/20 Leann Koo MD [address] [place], [place] [id number] Primary Staff Physician Cardiology 08/14/21 Mar Harvey, BEAUTY CULTURIST.MILLED RICE BROKER [address] [place] [address] Geospatial Applications Developer [facility] 11/07/24 Maria Isabel Waters BEAUTY CULTURIST.MILLED RICE BROKER [address] [place] [address] [facility] 05/16/25 Nurse'S Aides Teacher Relationship Specialty Start Date End Date David Kilgore DO [address] [place] [address] PCP - General Family Medicine 06/15/20 Georgia Moore, RN EH Auto [employer] Sales Rep 12/25/20 Leann Koo MD [address] [place] [address] Primary Staff Physician Cardiology 08/14/21 Mar Harvey, BEAUTY CULTURIST.MILLED RICE BROKER [address] [place] [address] Geospatial Applications [facility] 11/07/24 Maria Isabel Waters, BEAUTY CULTURIST.MILLED RICE BROKER [address] [place] [address] [facility] 05/16/25 Nurse'S Aides Teacher Relationship Specialty Start Date End Date David Kilgore DO [address] [place] [address] PCP - General Family Medicine 06/15/20 Georgia Moore, RN [facility] Auto Finance Sales Rep 12/25/20 eLann Koo MD [address] [place] [address] Primary Staff Physician Cardiology 08/14/21 Mar Harvey, BEAUTY CULTURIST.MILLED RICE BROKER [address] [place] [address] [facility] 11/07/24 Maria Isabel Waters BEAUTY CULTURIST.MILLED RICE BROKER [address] [place], [place] [address] [facility] 05/16/25 Nurse'S Aides Teacher Relationship Specialty Start Date End Date David Kilgore DO [address] [place] [address] PCP - General Family Medicine 06/15/20 Georgia Moore, RN EHP [employer] Sales Rep 12/25/20 Leann Koo MD [address] [place] [address] Primary Staff Physician Cardiology 08/14/21 Mar Harvey, BEAUTY CULTURIST.MILLED RICE BROKER [address] [place], [place] [address] [facility] 11/07/24 Maria Isabel Waters, BEAUTY CULTURIST.MILLED RICE BROKER [address] [place] [address] [facility] 05/16/25 Nurse'S Aides Teacher Relationship Specialty Start Date End Date David Kilgore DO [address] [place] [address] PCP - General Family Medicine 06/15/20 Georgia Moore, RN P Auto Finance Sales Rep 12/25/20 Leann Koo MD [address] [place], [place] [id number] Primary Staff Physician Cardiology 08/14/21 Mar Harvey, BEAUTY CULTURIST.MILLED RICE BROKER [address] [place], [place] [address] [facility] 11/07/24 Maria Isabel Waters, BEAUTY CULTURIST.MILLED RICE BROKER [address] [place], [place] [address] [facility] 05/16/25 Nurse'S Aides Teacher Relationship Specialty Start Date End Date David Kilgore DO [address] [place], [place] [address] PCP - General Family Medicine 06/15/20 Georgia Moore, RN EHP Auto Finance Sales Rep 12/25/20 Leann Koo MD [address] [place] [address] Primary Staff Physician Cardiology 08/14/21 Mar Hravey, BEAUTY CULTURIST.MILLED RICE BROKER [address] [place] [address] [facility] 11/07/24 Maria Isabel Waters, BEAUTY CULTURIST.MILLED RICE BROKER [address] [place], [place] [address] [facility] 05/16/25 Nurse'S Aides Teacher Relationship Specialty Start Date End Date David Kilgore DO [address] [place] [address] PCP - General Family Medicine 06/15/20 Georgia Moore, RN EHP [employer] Finance Sales Rep 12/25/20 Leann Koo MD [address] [place], [place] [address] Primary Staff Physician Cardiology 08/14/21 Mar Harvey, BEAUTY CULTURIST.MILLED RICE BROKER [address] [place], [place] [address] [facility] 11/07/24 Maria Isabel Waters APRN.MILLED RICE BROKER [address] [place] [address] [facility] 05/16/25 PRN Active and Recently Administ ered Medications (unrecognized section and content) Medication Order 03/05/2022 03/06/2022 03/07/2022 iohexol IV injection (OMNIPAQUE 300) (CANCELED) X (OR/PROCEDURE) PRN, Starting on Jennifer 03/07/22 at 0843, Until Jennifer 03/07/22 at 0851, Intraprocedure 0843 (Given - Provid er: Jacobo Cheng MD) lidocaine (PF) 5 mg/mL (0.5 %) injection (XYLOCAINE) (CANCELED) X (OR/PROCEDURE) PRN, Starting on Jennifer 03/07/22 at 0842, Until Jennifer 03/07/22 at 0851, Intraprocedure 0842 (Given - Provid er: Jacobo Cheng MD) methylPREDNISolone acetate injection (DEPO-Medrol) (CANCELED) X (OR/PROCEDURE) PRN, Starting on Jennifer 03/07/22 at 0843, Until Jennifer 03/07/22 at 0851, Intraprocedure 0843 (Given - Provid er: Jacobo Cheng MD) INFORMATION SOURCE (unrecogn ized section and content) DATE CREATED AUTHOR 05/19/2022 [facility] DATE CREATED AUTHOR AUTHOR'S ORGANIZ ATION 05/30/2023 [facility] DATE CREATED AUTHOR AUTHOR'S ORGANIZ ATION 06/13/2023 [facility] DATE CREATED AUTHOR AUTHOR'S ORGANIZ ATION 03/27/2025 [facility] DATE CREATED AUTHOR AUTHOR'S ORGANIZ ATION 09/16/2025 [facility] Inactive Administered Medications - up to 3 most recent administrations Administered Medications (un recognized section and content) Medication Order MAR Action Action Date Dose Rate Site onabotulinum toxin type A 200 Units injection (BOTOX) 200 Units, INTRAMUSCULAR, ONCE, 1 dose, On Fri01/02/24 at 0800, This record documents the total dose provided to patient. See progress note for specific locations and amounts administered. Given 01/02/2024 10:16 AM EST 200 Units Oth er FOR RECORDS PERTAINING TO PATIENTS WHO ARE OR HAVE BEEN ENROLLED IN A CHEMICAL DEPENDENCY/SUBSTANCEABUSE PROGRAM, SOME INFORMATION MAY BE OMITTED. This clinical summary was aggregated from multiple sources. Caution should be exercised in using it in the provision of clinical care. This summary normalizes information from multiple sources, and as a consequence, information in this document may materially change the coding, format and clinical context of patient data. In addition, data may be omitted in some cases. CLINICAL DECISIONS SHOULD BE BASED ON THE PRIMARY CLINICAL RECORDS. [facility]. provides no warranty or guarantee of the accuracy or completeness of information in this document.
--- NOTE | 2025-09-17 18:43 | EX.ED.VIS.HA ---
HPI History of Present Illness Chief Complaint: Headache Informant: patient Narrative Narrative: Patient is a 39 year old female with history of ankylosing spondylitis status and migraines presenting with worsening headache. States has had worsening migraine for the past 4 days. Has been taking her normal medications for her migraines including Ajovy, DHE injection and muscle relaxer with no relief. She states this is a typical headache for her where she has a bandlike distribution and pain over her occiput. She also notes that she has aura, her face gets numb and she has metallic taste in her mouth. This is typical for her migraines. She did stop medication for her ankylosing spondylitis is recently (is getting switched) not sure if this is triggering the headache this time. Denies any fever or chills. Does have some mild photophobia. Denies any focal weakness. States Reglan, Benadryl, Toradol, IV fluids and steroids usually provide relief. PFSH PFS Medical History Ankylosing spondylitis Migraine Arthritis Degenerative disc disease Allergy/AdvReac Type Severity Reaction Status Date / Time fentanyl Allergy Itching Verified 09/17/25 17:28 hydromorphone (From Dilaudid) Allergy Itching Verified 09/17/25 17:28 Sulfa (Sulfonamide Allergy Rash Verified 09/17/25 17:28 Antibiotics) Social History Smoking Status: Never smoker ROS ROS ED Constitutional Constitutional ED: Denies chills or fever(s) Eyes Eyes: Reports change in vision bilateral (Associated with aura) ENT ENT ED: Denies rhinorrhea or sore throat Cardiovascular Cardiovascular: Denies chest pain Gastrointestinal Gastrointestinal: Denies abdominal pain or vomiting Musculoskeletal Musculoskeletal: Reports arthralgias; Denies myalgias Integumentary Denies rash Neurologic Neurologic: Reports headache(s) and paresthesias; Denies weakness Psychiatric Psychiatric: Denies anxiety Hematologic/Lymphatic Hematologic/Lymphatic: Denies easy bleeding or easy bruising EXAM Physical Exam Const Vital Signs: 09/17/25 17:27 09/17/25 19:26 09/17/25 20:30 Temperature 98.2 F 98.2 F Temperature Source Oral Pulse Rate 108 H 72 75 Respiratory Rate 16 16 16 Blood Pressure 122/61 H 109/64 Blood Pressure Mean 81 79 Pulse Ox 100 99 99 Oxygen Delivery Method Room Air Room Air Positive well nourished and well developed General Appearance ED: well developed and NAD HEENT Reports normocephalic and moist mucous membranes Eyes EOMs intact bilaterally Neck supple and no meningeal signs Resp normal respiratory effort and clear to auscultation bilaterally Cardio regular rate and regular rhythm Extremity normal to inspection General Extremety ED: Negative for edema General Extremity: Negative for edema Neuro oriented x3 and CN's II-XII intact bilaterally Jesse Coma Scale: document GCS findings Spontaneous Obeys Commands Oriented 15 Sensorium / Orientation: awake and alert Speech: speech normal Motor Exam: Negative for general weakness Psych mental status grossly normal MDM MDM MDM Narrative Medical decision making narrative: Patient is evaluated for recurrent headache for the past 4 days. Has extensive history of migraines. Is not getting relief with her home medications and came in for further evaluation. Differential includes not limited to migraine headache, subarachnoid hemorrhage, tension headache. She is not any fever or infectious symptoms to lower suspicion for meningitis. She denied any nuchal rigidity on exam. She does not report a thunderclap headache or worst headache of her life low special for subarachnoid hemorrhage. Patient given migraine cocktail including Toradol, Benadryl, Reglan, IV fluids and Decadron. Repeat evaluations feeling improved. We discharged home. Encouraged follow-up with primary care doctor. Given return precautions. Discharged home in stable condition. Discharge Plan Triage Chief Complaint: Headache ED Provider: Ilana Weaver Dx/Rx/DC Orders Clinical Impression: Headache, migraine Instructions: ED, Migraine (Classical) Primary Care Provider: David Kilgore Referrals: David Kilgore DO [Primary Care Provider, Medical] Print Language: Venezuelan Disposition Disposition: Home, Self Care Discharge Date/Time: 09/17/25 20:31
[2025-09-17] MEDS: 0.9% Normal Saline (1000mL) 1,000 ML 999 ML IV (18:53)
[2025-09-17] MEDS: DiphenhydrAMINE 50 MG/ML Syringe 25 MG IV (18:59)
[2025-09-17 19:26] VITALS: PULSE 72; RESP 16; O2SAT 99
[2025-09-17 20:30] VITALS: BP 109/64; PULSE 75; RESP 16; TEMP 36.8; O2SAT 99
== END 2025-09-17 20:31 | disposition home or self-care (01) ==
PROVIDERS: Emergency Provider Emergency Medicine; PCP Student in an Organized Health Care Education/Training Program; Visit Provider Emergency Medicine
DX: G43.909 Migraine, unspecified, not intractable, without status migrainosus (principal)
CPT/HCPCS: 96361; 96374; 96375; 99284